=== PATIENT | male | born 1980 | race Caucasian/White ===

== ENCOUNTER 2024-01-09 09:17 | Outpatient (CLI) | payer OTHER, SELFPAY ==
--- NOTE | ~2024-01-09 | CT_ITS ---
CT sinus wo con Ordering provider: Haris Hoffman, DO History: . Chronic maxillary sinusitis . Comparison: None. Technique: Thin slice Scans CT of the paranasal sinuses was performed with coronal and sagittal refor matted images. No IV contrast. . Automated exposure control and iterative reconstruction technique w ere employed. The dose-length product was 257.89 mGy-cm. Findings: NASAL SEPTUM: Barium mild right nasal septal deviation. OSTEOMEATAL UNITS: Bilaterally patent. NASAL TURBINATES AND NASOPHARYNX: Normal. PARANASAL SINUSES: Well aerated. Minimal mucosal thickening in the right ethmoid sinus. VISUALIZED MASTOIDS: Normal as visualized. BONES: Bifid posterior arch of C1. SUPERFICIAL SOFT TISSUES/VISUALIZED BRAIN PARENCHYMA: Normal. IMPRESSION: Mild right nasal septal deviation. Minimal mucosal thickening of the right ethmoid sinus. Reviewed, dictated and finalized at location A.
== END 2024-01-09 09:18 ==
PROVIDERS: PCP Student in an Organized Health Care Education/Training Program; Visit Provider Student in an Organized Health Care Education/Training Program
DX: J32.0 Chronic maxillary sinusitis (principal); J34.2 Deviated nasal septum
CPT/HCPCS: 70486

== ENCOUNTER 2024-06-28 10:47 | Emergency (ER) | payer OTHER, SELFPAY ==
--- NOTE | ~2024-06-28 | CT_ITS ---
EXAMINATION: CT abdomen pelvis w con DATE: 06/28/2024 12:38 INDICATION: Epigastric pain, nausea and vomiting TECHNIQUE: Computed tomography (CT) of the abdomen and pelvis was performed with 100 mL Omnipaque-350 intravenous contrast. Automated exposure control and iterative reconstruction technique were employe d. The dose-length product was 1522.72 mGy-cm. COMPARISON: None FINDINGS: Subtle patchy groundglass opacities in the lingula and left lower lobe suspicious for pneumonia. Hear t size is normal. No pericardial or pleural effusion. Small sliding-type hiatal hernia. Diffuse hepat ic steatosis with focal sparing along the gallbladder fossa. Gallbladder, spleen, pancreas, bilateral adrenal glands and kidneys are normal. Bowels including the appendix are normal. Small fat-containin g umbilical hernia. Bladder is normal. No free intraperitoneal gas or fluid. No pathologically enlarg ed abdominal or pelvic lymphadenopathy. Moderate lumbar and lower thoracic spondylosis. Chronic mild T11 compression fracture. L5-S1 anterior spinal fusion with interbody fusion device and anterior plat e-screw fixation. IMPRESSION: 1. Patchy groundglass opacities in the left lower lobe and lingula consistent with pneumonia. 2. Small sliding-type hiatal hernia. 3. Diffuse hepatic steatosis. Reviewed, dictated and finalized at location A. MEDICAL DIRECTOR IMPRESSION: 1. Patchy groundglass opacities in the left lower lobe and lingula consistent w ith pneumonia. 2. Small sliding-type hiatal hernia. 3. Diffuse hepatic steatosis.
[2024-06-28 10:57] VITALS: BP 152/99; PULSE 99; RESP 18; TEMP 36.5; O2SAT 99
[2024-06-28 12:10] LABS: Basophils Absolute Auto 0.1 K/mm3 (0.0-0.1); Basophils Percent Auto 0.5 % (0.2-1.2); Eosinophils Absolute Auto 0.4 K/mm3 (0-0.3); Hematocrit 40.6 % (42.0-52.0); Hemoglobin 13.9 g/dL (14.0-18.0); Immature Granulocyte Absolute 0.03 K/mm3 (0.00-0.031); Immature Granulocyte Percent A 0.3 % (0-0.5); Mean Corpuscular HGB Conc 34.2 g/dl (32-36); Mean Corpuscular Hemoglobin 31.5 pg (26-34); Mean Corpuscular Volume 92.1 fl (80-100); Mean Platelet Volume 8.7 fl (7.4-10.4); Monocytes Absolute Auto 0.8 K/mm3 (0.1-0.6); Neutrophils Absolute Auto 6.1 K/mm3 (1.3-6.7); Neutrophils Percent Auto 63.2 % (45.5-73.1); Platelet Count Result 352 k/mm3 (150-375); Red Blood Count 4.41 M/mm3 (4.6-6.20); Red Cell Distribution Width 13.2 % (11.5-14.5); White Blood Count 9.6 K/mm3 (4.5-10.0)
[2024-06-28 12:12] LABS: Add Urine Microscopic? NO; Appearance Urine Clear (Clear); Bilirubin Urine Negative (Negative); Blood Urine Negative (Negative); Color Urine Yellow (Yellow); Glucose Urine UA Negative (Negative); Ketones Urine Negative (Negative); Leukocyte Esterase Ur Negative LEU/UL (Negative); Nitrate Urine Negative (Negative); Protein Urine Negative (Negative); Urobilinogen Urine 0.2 mg/dL (<2.0)
--- NOTE | 2024-06-28 12:18 | ED_ITS ---
HPI - Nausea/Vomiting/Diarrhea General Chief complaint: Nausea/Vomiting/Diarrhea Stated complaint: n/v Time Seen by Provider: 06/28/24 11:35 History of Present Illness HPI Narrative: 43-year-old male presenting with nausea and vomiting. States that for the last several months he has been having a lot of vomiting especially at night. It is been getting worse and he is concerned now that he is unable to keep his lithium down and he does not want to have a manic episode. His psychiatrist started him on Zofran which really has not been helping much. He has also been taking Protonix. He has an appointment with his PCP next month. Denies abdominal pain but does complain of some discomfort. Related Data Allergies Allergy/AdvReac Type Severity Reaction Status Date / Time steriod AdvReac Intermediate Agitated Uncoded 06/28/24 10:49 Review of Systems 2 Review of Systems: All systems reviewed & are unremarkable except as noted in HPI and below Exam 2 Narrative: GENERAL: Nontoxic, no acute distress, pleasant cooperative HEAD: Normocephalic, atraumatic. EYES: PERRLA and EOMI. ENT: Grossly unremarkable NECK: Supple. CHEST: No respiratory distress. HEART: Regular rate and rhythm ABDOMEN: Soft, nontender, nondistended EXTREMITIES: Normal range of motion SKIN: Warm, dry, no rash. NEURO: Alert and oriented x3. PSYCH: Normal mood and affect. Course Vital Signs Vital signs: Vital Signs Temperature 97.7 F 06/28/24 10:57 Pulse Rate 99 06/28/24 10:57 Respiratory Rate 18 06/28/24 10:57 Blood Pressure 152/99 H 06/28/24 10:57 Pulse Oximetry 99 06/28/24 10:57 Oxygen Delivery Room Air 06/28/24 10:57 Temperature 97.7 F 06/28/24 10:57 Pulse Rate 80 06/28/24 15:31 Respiratory Rate 16 06/28/24 15:31 Blood Pressure 143/80 H 06/28/24 15:31 Pulse Oximetry 100 06/28/24 15:31 Oxygen Delivery Room Air 06/28/24 10:57 MDM - Nausea/Vomiting/Diarrhea MDM Narrative Medical decision making narrative: 43-year-old male presenting with nausea and vomiting. Vitals are stable. Exam remarkable for the above. Blood work without acute abnormalities. CT abdomen pelvis with a small sliding hiatal hernia, left-sided pneumonia. Patient actually does report a cough for the last several days on further discussion. Blood work without acute abnormalities. UA is unremarkable. Patient given a dose of Reglan p.o. and is now tolerating p.o. intake. Feel he is safe for outpatient management. Will send in for antibiotics for the pneumonia and Reglan for his ongoing nausea. Discussed that he should not take Zofran and Reglan are simultaneously. Discussed appropriate return precautions and follow- up. Patient is agreeable this plan. Discharged in stable condition. Differential Diagnosis Differential diagnosis: Likely gastroenteritis, dehydration and other (Nausea and vomiting, pneumonia, UTI, electrolyte derangement) Medical Records Attestation: I reviewed the patient's medical records. Lab Data Attestation: I reviewed the patient's lab results. 06/28/24 12:00 06/28/24 12:00 Labs: Lab Results 06/28/24 06/28/24 Range/Units 12:00 12:01 WBC 9.6 (4.5-10.0) K/mm3 RBC 4.41 L (4.6-6.20) M/mm3 Hgb 13.9 L (14.0-18.0) g/dL Hct 40.6 L (42.0-52.0) % MCV 92.1 (80-100) fl MCH 31.5 (26-34) pg MCHC 34.2 (32-36) g/dl RDW 13.2 (11.5-14.5) % Plt Count 352 (150-375) k/mm3 MPV 8.7 (7.4-10.4) fl Immature Gran % (Auto) 0.3 (0-0.5) % Neut % (Auto) 63.2 (45.5-73.1) % Lymph % (Auto) 24.0 (18.3-44.2) % [place] % (Auto) 8.0 (2.6-8.5) % Eos % (Auto) 4.0 (0-4.4) % Baso % (Auto) 0.5 (0.2-1.2) % Lymph # (Auto) 2.30 (0.9-3.2) K/mm3 [place] # (Auto) 0.8 H (0.1-0.6) K/mm3 Eos # (Auto) 0.4 H (0-0.3) K/mm3 Baso # (Auto) 0.1 (0.0-0.1) K/mm3 Abs Immat Gran (auto) 0.03 (0.00-0.031) K/mm3 Absolute Neuts (auto) 6.1 (1.3-6.7) K/mm3 Absolute Nucleated RBC 0.000 (0.0-0.012) K/mm3 Nucleated RBC % 0.0 (0.0-0.2) % Sodium 139 (137-145) mmol/L Potassium 4.1 (3.4-5.0) mmol/L Chloride 108 H (98-107) mmol/L Carbon Dioxide 26 (22-30) mmol/L Anion Gap 5 (4-12) mmol/L BUN 8 L (9-20) mg/dL Creatinine 0.80 (0.7-1.3) mg/dL Estim Creat Clear Calc 144 ml/min Estimated GFR > 60 (59 - ) Glucose 92 (65-110) mg/dL Calcium 9.2 (8.4-10.2) mg/dL Total Bilirubin 0.6 (0.2-1.3) mg/dL AST 46 (17-59) U/L ALT 75 H (6-50) U/L Alkaline Phosphatase 89 (38-126) U/L Total Protein 7.0 (6.3-8.2) g/dL Albumin 4.2 (3.5-5.1) g/dL Lipase 136 (23-300) U/L Urine Color Yellow (Yellow) Urine Appearance Clear (Clear) Urine pH 7.0 (5.0-9.0) Ur Specific [place] 1.010 (1.001-1.035) Urine Protein Negative (Negative) mg/dL Urine Glucose (UA) Negative (Negative) mg/dL Urine Ketones Negative (Negative) mg/dL Ur Blood (Man) Negative (Negative) Urine Nitrate Negative (Negative) Urine Bilirubin Negative (Negative) Urine Urobilinogen 0.2 (<2.0) mg/dL Leukocyte Esterase Rfl Negative (Negative) HARRISON/UL Imaging Data Radiologist's impression: ITS Impressions Abdomen/Pelvis CT 06/28/24 12:42 IMPRESSION: 1. Patchy groundglass opacities in the left lower lobe and lingula consistent with pneumonia. 2. Small sliding-type hiatal hernia. 3. Diffuse hepatic steatosis. Critical Care Time Critical Care Time Critical Care Time: No Discharge Plan Discharge Clinical Impression: Nausea & vomiting, Pneumonia Patient Disposition: Home, Self-Care Condition: Stable Instructions: Antibiotic Form, Acute Nausea and Vomiting (ED), Pneumonia (ED) Additional Instructions: The CT scan today shows a small hiatal hernia. We also see pneumonia in your left lung so we have started you on antibiotics for this. We have sent in for Reglan to help with your nausea. You may continue taking your Protonix. Do not take the Zofran if your taking the Reglan. Please follow-up with the GI doctor at the number below. If your symptoms worsen or other concerning symptoms arise, please return to the ER. Patient Language: [place] Prescriptions: New metoclopramide HCl [Reglan] 10 mg tablet 10 mg PO Q6H PRN (Reason: nausea and vomiting) Qty: 20 0RF doxycycline hyclate 100 mg tablet 100 mg PO BID Qty: 10 0RF Follow-up/Referrals: Dr. Wadsworth [Other] Yasmin,DO Haris [Primary Care Provider] -
[2024-06-28 12:20] LABS: Alanine Aminotransferase 75 U/L (6-50); Albumin Level 4.2 g/dL (3.5-5.1); Alkaline Phosphatase 89 U/L (38-126); Anion Gap 5 mmol/L (4-12); Aspartate Amino Transferase 46 U/L (17-59); Bilirubin,Total 0.6 mg/dL (0.2-1.3); Blood Urea Nitrogen 8 mg/dL (9-20); Calcium 9.2 mg/dL (8.4-10.2); Carbon Dioxide 26 mmol/L (22-30); Chloride 108 mmol/L (98-107); Estimated CRCL calculation 144 ml/min; Estimated Glomerular Filt Rate > 60; Glucose 92 mg/dL (65-110); Lipase 136 U/L (23-300); Potassium 4.1 mmol/L (3.4-5.0); Sodium 139 mmol/L (137-145)
[2024-06-28] MEDS: SODIUM CHLORIDE 0.9% IV 1,000 ML 999 ML IV CONT (12:44)
[2024-06-28] MEDS: FAMOTIDINE 20 MG/2 ML VIAL IV PUSH (12:44)
[2024-06-28] MEDS: ONDANSETRON INJ 4 MG/2 ML VIAL IV PUSH (12:45)
[2024-06-28] MEDS: METOCLOPRAMIDE HCL 10 MG TABLET PO (15:25)
[2024-06-28 15:31] VITALS: BP 143/80; PULSE 80; RESP 16; O2SAT 100
--- NOTE | 2024-06-28 16:47 | PC.NURSE ---
Tolerated sandwich and fluids well.
--- OUTSIDE RECORDS SUMMARY | 2024-07-02 06:31 | XMS_ITS | Encounter Summary ---
Author Organization [facility] Address [address] [place] [address] Care Team Providers Care [employer]ley [employer] Over[employer]uler Name Role Phone Haris Hoffman DO Primary Care Provider + Reason for Visit * Reason Onset Date Comments Sinusitis 11/05/2019 Encounter Details Date Type Department Care Team (Late st Contact Info) Description 11/05/2019 Telephone [facility] [address], [address] [place] [address] Jose Lebron MD [facility] [place] [address] Sinusitis Social History Tobacco Use Types Packs/Day Years Used Date Smoking Tobacco: Never Smokeless Tobacco: Never Sex and Gender Information Value Date Recorded Sex Assigned at Not on file Gender Identity Not on file Sexual Orientation Not on file documented as of this encounter Miscellaneous Notes * Telephone Encounter - Cyndi Summers RN - 11/06/2019 9:52 AM CDT Message left for patient to call with symptoms, and to discuss * Telephone Encounter - Varsha Shelley - 11/05/2019 1:23 PM CDT Patient called with reports that he is still experiencing sinus infection symptoms. He would like to speak with a nurse to discuss treatment options. documented in this encounter Plan of Treatment Not on file documented as of this encounter Visit Diagnoses Not on filedocumented in this encounter Care Teams [employer]uler Relationship Specialty Start Date End Date Haris Hoffman DO PCP - General 05/23/19 documented as of this encounter
--- OUTSIDE RECORDS SUMMARY | 2024-07-02 06:31 | XMS_ITS | Encounter Summary ---
Author Organization [facility] Address [address] [place] [address] Care Team Providers Care Carriage Dogger Name Role Phone Haris Hoffman Primary Care Provider + Reason for Visit * Reason Comments Sinusitis 1 week Congestion draining down throat Cough Encounter Details Date Type Department Care Team (Late st Contact Info) Description 03/17/2021 4:40 PM CDT Office Visit [facility] AT [address] [phone] Provider, [facility] Edmund [place] Screening for viral disease (Primary Dx); COVID-19 Social History Tobacco Use Types Packs/Day Years Used Date Smoking Tobacco: Never Smokeless Tobacco: Never Sex and Gender Information Value Date Recorded Sex Assigned at Not on file Gender Identity Not on file Sexual Orientation Not on file COVID-19 Exposure Response Date Recorded In the last month, have you been in contact with someone who was confirmed or suspected to have Coronavirus / COVID-19? Yes 03/17/2021 4:26 PM CDT documented as of this encounter Last Filed Vital Signs Vital Sign Reading Time Taken Comments Blood Pressure 130/84 03/17/2021 4:32 PM CDT Pulse 98 03/17/2021 4:32 PM CDT Temperature 36.8 ??C (98.2 ??F) 03/17/2021 4:32 PM CD T Respiratory Rate 16 03/17/2021 4:32 PM CDT Oxygen Saturation 97% 03/17/2021 4:32 PM CDT Inhaled Oxygen Concentration - - Weight 113.4 kg (250 lb) 03/17/2021 4:32 PM CDT Height 188 cm (6' 2 ) 03/17/2021 4:32 PM CDT Body Mass Index 32.1 03/17/2021 4:32 PM CDT documented in this encounter Patient Instructions * Patient Instructions* Jesus Dominguez, STOVE INSTALLER-GOVERNMENT CLERK - 03/17/2021 4:53 PM CDT While waiting for your COVID-19 test result or if your COVID-19 test is positive: ISOLATE: Stay home except to get medical care! Separate yourself from other people and pets in [facility]: ??? Do not go to work, school, or public areas, such as stores or social gatherings. ??? Do not use public transportation. ??? If available, stay in a separate bedroom and use a separate bathroom. ??? Ask others to care for your pets. (If possible) ??? Wear a facemask when around other people or pets. ??? Cover your mouth and nose with a tissue when you cough or sneeze. If a tissue is not available,cough or sneeze into your upper sleeve (not your hands). ??? Throw tissues away in trash-can that has a bag in it. Empty your trash daily. ??? Always wash your hands after you throw away the tissue or garbage. QUARANTINE CAN BE COMPLETE ONCE THERE HAS BEEN 10 DAYS SINCE SYMPTOM ONSET, FEVER FREE X 24 HOURS AND HAVING SYMPTOM IMPROVEMENT. Self-care: ??? Rest as much as possible. Slowly start to do more each day. ??? Take the medicines recommended by your doctor for fever, body aches, cough, or headaches. (Tylenol or Ibuprofen for aches/pains/fever as needed) (Antihistamines like Claritin or Benadryl as needed for drainage) (Delsym and cough drops/throat lozenges as needed for cough) ??? Drink more liquids as directed to help thin and loosen mucus so it is easier to cough up. Liquids such as water, fruit juice, and broth also help keep you hydrated. ??? Soothe a sore throat by gargling with warm salt water. Make salt water by dissolving ?? teaspoon salt in 1 cup warm water (8 ounces). Older children and adults can also use throat lozenges, ice chips, or sore throat spray. ??? Use a humidifier or vaporizer to increase air moisture in your home. This may make it easier tobreathe and help decrease coughing. ??? Use saline nasal drops as directed to relieve congestion. ??? Apply petroleum-based jelly around the outside of nostrils to decrease irritation from blowing your nose. ??? DO NOT smoke or vape. Nicotine and other chemicals in cigarettes and cigars can make your symptoms worse. Monitor your symptoms: ??? Seek medical attention right away if your symptoms get worse, such as if you are having difficulty breathing, shortness of breath, new confusion or inability to arouse, or bluish lips or face. ??? If indicated a pulse ox will be soon delivered to your home - monitor your oxygen saturations with this device. If you find your Oxygen Saturation is falling 92% or below please notify your PCP right away or seek medical attention. ??? If you have a medical emergency, call 911 and notify the EMS personnel that you have or are being evaluated for COVID-19. Put on a facemask before emergency medical services arrive documented in this encounter Progress Notes * Jesus Dominguez APRN-CNP - 03/17/2021 4:54 PM CDT Subjective: David Rider is a 40 year old male who presents for evaluation: Chief Complaint Patient presents with ??? Sinusitis 1 week ??? Congestion draining down throat ??? Cough Primary Care Physician is Haris Hoffman DO. Symptoms include congestion and cough. Onset of symptoms was 1 week ago, gradually worsening since that time. congestion, non productive cough. He is drinking plenty of fluids. Evaluation to date: none. Treatment to date: none No Known Allergies Outpatient Medications Marked as Taking for the 03/17/21 encounter (Office Visit) with Provider, Earnestine Addison Medication Sig ??? ARIPiprazole (ABILIFY) 5 MG tablet Take 5 mg by mouth once daily ??? divalproex DR (DEPAKOTE) 500 MG tablet Take 500 mg by mouth 3 times daily ??? GABAPENTIN PO Past Medical History: Diagnosis Date ??? Anxiety and depression Patient Active Problem List: BMI 30.0-30.9,adult Gastroesophageal reflux disease with esophagitis Mild episode of recurrent major depressive disorder Recurrent sinus infections Past Surgical History: Procedure Laterality Date ??? LUMBAR SPINE FUSION L5-S1 Social History Socioeconomic History ??? Marital status: Spouse name: Not on file ??? Number of children: Not on file ??? Years of education: Not on file ??? Highest education level: Not on file Occupational History ??? Not on file Tobacco Use ??? Smoking status: Never Smoker ??? Smokeless tobacco: Never Used Vaping Use ??? Vaping Use: Never used Substance and Sexual Activity ??? Alcohol use: Not on file ??? Drug use: Not on file ??? Sexual activity: Not on file Other Topics Concern ??? Not on file Social History Narrative ??? Not on file Social Determinants of Health Financial Resource Strain: ??? Difficulty of Paying Living Expenses: Food Insecurity: ??? Worried About Running Out of Food in the Last Year: ??? Ran Out of Food in the Last Year: Transportation Needs: ??? Lack of Transportation (Medical): ??? Lack of Transportation (Non-Medical): Physical Activity: ??? Days of Exercise per Week: ??? Minutes of Exercise per Session: Stress: ??? Feeling of Stress : Social Connections: ??? Frequency of Communication with Friends and Family: ??? Frequency of Social Gatherings with Friends and Family: ??? Attends Sabianism Services: ??? Active Member of Clubs or Organizations: ??? Attends Club or Organization Meetings: ??? Marital Status: Intimate Partner Violence: ??? Fear of Current or Ex-Partner: ??? Emotionally Abused: ??? Physically Abused: ??? Sexually Abused: Medications reviewed. Review of Systems Constitutional: Positive for fatigue, fevers Ears, nose, mouth, and throat: Positive for earaches bilaterally, sinus trouble, congestion Respiratory: Positive for acute cough Cardiovascular: Negative Neurological: Negative Objective: BP 130/84 (BP SITE: LEFT ARM, BP POSITION: SITTING, BP CUFF SIZE: 11) Pulse 98 Temp 98.2 ??F (36.8 ??C) (Oral) Resp 16 Ht 1.88 m (6' 2 ) Wt 113.4 kg (250 lb) SpO2 97% BMI 32.1 kg/m2 Skin: Physical Exam Exam General appearance: alert, cooperative, no distress, ill-appearing Ears: neither Right tympanic membrane - bubbles present nor Left tympanic membrane - bubbles present Nose: nares open; no septal deviation is noted, no maxillary tenderness, clear rhinorrhea Throat: no mucous membrane abnormalities Neck: range of motion is intact, no masses, thyroid not enlarged, no adenopathy Lungs: breath sounds normal and symmetric; no rales or wheezes Heart: regular rhythm, normal S1 and S2, without murmurs, gallops or rubs Neurologic: mental status normal; alert and oriented X 3; cranial nerves II - XII are grossly intact Recent Results (from the past 24 hour(s)) SARS-COV-2 (COVID-19) AG (AMB) POCT Collection Time: 03/17/21 4:52 PM Result Value Ref Range SARS-CoV-2 Ag Positive (Abnormal) Negative Lot # [id number] Expiration Date 07/03/22 Instrument Serial Number [id number] COVID Internal Control Acceptable Acceptable Assessment: . Encounter Diagnoses Name Primary? Screening for viral disease Yes ??? COVID-19 Plan: While waiting for your COVID-19 test result or if your COVID-19 test is positive: ISOLATE: Stay home except to get medical care! Separate yourself from other people and pets in [facility]: ??? Do not go to work, school, or public areas, such as stores or social gatherings. ??? Do not use public transportation. ??? If available, stay in a separate bedroom and use a separate bathroom. ??? Ask others to care for your pets. (If possible) ??? Wear a facemask when around other people or pets. ??? Cover your mouth and nose with a tissue when you cough or sneeze. If a tissue is not available,cough or sneeze into your upper sleeve (not your hands). ??? Throw tissues away in trash-can that has a bag in it. Empty your trash daily. ??? Always wash your hands after you throw away the tissue or garbage. QUARANTINE CAN BE COMPLETE ONCE THERE HAS BEEN 10 DAYS SINCE SYMPTOM ONSET, FEVER FREE X 24 HOURS AND HAVING SYMPTOM IMPROVEMENT. Self-care: ??? Rest as much as possible. Slowly start to do more each day. ??? Take the medicines recommended by your doctor for fever, body aches, cough, or headaches. (Tylenol or Ibuprofen for aches/pains/fever as needed) (Antihistamines like Claritin or Benadryl as needed for drainage) (Delsym and cough drops/throat lozenges as needed for cough) ??? Drink more liquids as directed to help thin and loosen mucus so it is easier to cough up. Liquids such as water, fruit juice, and broth also help keep you hydrated. ??? Soothe a sore throat by gargling with warm salt water. Make salt water by dissolving ?? teaspoon salt in 1 cup warm water (8 ounces). Older children and adults can also use throat lozenges, ice chips, or sore throat spray. ??? Use a humidifier or vaporizer to increase air moisture in your home. This may make it easier tobreathe and help decrease coughing. ??? Use saline nasal drops as directed to relieve congestion. ??? Apply petroleum-based jelly around the outside of nostrils to decrease irritation from blowing your nose. ??? DO NOT smoke or vape. Nicotine and other chemicals in cigarettes and cigars can make your symptoms worse. Monitor your symptoms: ??? Seek medical attention right away if your symptoms get worse, such as if you are having difficulty breathing, shortness of breath, new confusion or inability to arouse, or bluish lips or face. ??? If indicated a pulse ox will be soon delivered to your home - monitor your oxygen saturations with this device. If you find your Oxygen Saturation is falling 92% or below please notify your PCP right away or seek medical attention. ??? If you have a medical emergency, call 911 and notify the EMS personnel that you have or are being evaluated for COVID-19. Put on a facemask before emergency medical services arrive Instructed to quarantine for 10 days from start of symptoms and until symptoms improved. Instructedto follow up with local health dept for official order to quarantine. Orders Placed This Encounter ??? SARS-COV-2 (COVID-19) AG (AMB) POCT Order Specific Question: Release to patient Answer: Immediate Order Specific Question: Is the patient experiencing any symptoms consistent with COVID (eg. Fever,cough, shortness of breath)? Answer: Yes Order Specific Question: Date of symptoms onset? Answer: 03/13/2021 Order Specific Question: Symptoms as described by CDC. (Select all that apply) Answer: Cough [[id number]] Order Specific Question: Symptoms as described by CDC. (Select all that apply) Answer: Nasal congestion [[id number]] Order Specific Question: Hospitalized for COVID-19? Answer: No Order Specific Question: Admitted to ICU for COVID-19? Answer: No Order Specific Question: First COVID-19 test? 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 Answer: No Order Specific Question: Resident in a congregate care setting? Answer: No Continue to follow up with Haris Hoffman DO as directed. After Visit Summary reviewed with patient. The patient indicates understanding of these issues and agrees with the plan. Patient discharged to Home .MARGO Restrepo 03/17/2021 5:07 PM documented in this encounter Plan of Treatment Not on file documented as of this encounter Procedures Procedure Name Priority Date/Time Associated Diagnosis Comments SARS-COV-2 (COVID-19) AG (AMB) POCT Routine 03/17/2021 4:52 PM CDT Screening for viral disease documented in this encounter Results * (ABNORMAL) SARS-COV-2 (COVID-19) AG (AMB) POCT (03/17/2021 4:52 PM CDT) SARS-CoV-2 Ag Positive(A) Negative [facility] Lot # [id number] [facility] Expiration Date 07/03/22 [facility] Instrument Serial Number [id number] [facility] COVID Internal Control Acceptable Acceptable [facility] Microbiology SPECIMEN FROM NASAL FOSSAE / Unknown 03/17/2021 4:52 PM CDT Narrative SSRENITA RADERWOOD - 03/17/2021 4:53 PM CDT SARS-CoV-2 antigen testing is authorized for use with nasal (Veritor, BinaxNOW, or Leah) or nasopharyngeal (Leah) swabs collected from individuals who are suspected of COVID-19 infection by their healthcare provider within the first five days of onset of symptoms. ??False-positive SARS-CoV-2 test results are more likely to occur when disease prevalence is low (less than 1%). False-negative SARS-CoV-2 test results are more likely to occur when disease prevalence is high (greater than 10%). ?? This test has been authorized by the Food and Drug administration (FDA)under an Emergency??Use Authorization (EUA). This test is only authorized for the duration of time the declaration that circumstances exist justifying the authorization of emergency use of in vitro diagnostic tests for detection of SARS-CoV-2 virus and/or diagnosis of COVID-19 infection under section 564(b)(1) of the Act, 21 U.S.C 360bbb-3 (b)(1), unless the authorization is terminated or revoked sooner. Fact Sheets for this EUA assay are available upon request. Jesus Dominguez APRN-GOVERNMENT CLERK LAB - POINT OF CARE ORDERABLES [facility] [address] [phone] documented in this encounter Visit Diagnoses Diagnosis Screening for viral disease- Primary Special screening examination for unspecified viral disease COVID-19 documented in this encounter Additional Health Concerns Infection Onset Date Last Indicated Resolved Time COVID-19 Under Investigation 03/17/2021 03/17/2021 03/17/2021 4:54 PM CDT COVID-19 Confirmed 03/17/2021 03/17/2021 09/12/202 1 4:33 AM CDT documented as of this encounter Care Teams Carriage Dogger Relationship Specialty Start Date End Date Haris Hoffman DO PCP - General 05/23/19 documented as of this encounter
--- OUTSIDE RECORDS SUMMARY | 2024-07-02 06:31 | XMS_ITS | Encounter Summary ---
Author Organization [facility] Address [address] [place] [address] Care Team Providers Care Blocker And Polisher Gold Wheel Name Role Phone Haris Hoffman DO Primary Care Provider + Encounter Details Date Type Department Care Team (Latest Contact Info) Description 03/17/2021 Travel Social History Tobacco Use Types Packs/Day Years [...] PM CDT documented as of this encounter Plan of Treatment Not on file documented as of this encounter Visit Diagnoses Not on filedocumented in this encounter Additional Health Concerns Infection Onset Date Last Indicated Resolved Time COVID-19 Under Investigation 03/17/2021 03/17/2021 03/17/2021 4:54 PM CDT COVID-19 Confirmed 03/17/2021 03/17/2021 4:33 AM CDT documented as of this encounter Care Teams Blocker And Polisher Gold Wheel Relationship Specialty Start Date End Date Haris Hoffman DO PCP - General 05/23/19 documented as of this encounter
--- OUTSIDE RECORDS SUMMARY | 2024-07-02 06:31 | XMS_ITS | Encounter Summary ---
Author Organization [facility] Address [facility] [facility] [place] [address] Care Team Providers Care Contracting Manager Name Role Phone Haris Hoffman DO Primary Care Provider + Encounter Details Date Type Department Care Team (Latest Contact Info) Description 04/12/2021 Travel Social History Tobacco Use Types Packs/Day Years Used Date Smoking Tobacco: Never Smokeless Tobacco: Never Alcohol Use Standard Drinks/Week Comments Not Currently 0 (1 standard drink = 0.6 oz pur e alcohol) Sex and Gender Information Value Date Recorded Sex Assigned at Not on file Gender Identity Not on file Sexual Orientation Not on file COVID-19 Exposure Response Date Recorded In the last month, have you been in contact with someone who was confirmed or suspected to have Coronavirus / COVID-19? No / Unsure 04/12/2021 12:37 PM CDT documented as of this encounter Plan of Treatment Not on file documented as of this encounter Visit Diagnoses Not on filedocumented in this encounter Care Teams Contracting Manager Relationship Specialty Start Date End Date Haris Hoffman DO PCP - General 05/23/19 documented as of this encounter
--- OUTSIDE RECORDS SUMMARY | 2024-07-02 06:31 | XMS_ITS | Encounter Summary ---
Author Organization [facility] Address [address] [address] Care Team Providers Care Screen Printing Cloth Spreader Name Role Phone Haris Hoffman Primary Care Provider + Reason for Visit * Reason Comments Dizziness Nausea States for days now has been having dizziness and nausea that comes and goes. Encounter Details Date Type Department Care Team (Late st Contact Info) Description 05/04/2022 9:17 AM CDT - 05/04/2022 11:51 AM CDT Emergency ER at [address] [address] Benign paroxysmal positional vertigo, unspecified laterality (Primary Dx); Dizzy Discharge Disposition: Home or Self Care Social History Tobacco Use Types Packs/Day Years Used Date Smoking Tobacco: Never Smokeless Tobacco: Never Alcohol Use Standard Drinks/Week Comments Not Currently 0 (1 standard drink = 0.6 oz pur e alcohol) Sex and Gender Information Value Date Recorded Sex Assigned at Not on file Gender Identity Not on file Sexual Orientation Not on file documented as of this encounter Last Filed Vital Signs Vital Sign Reading Time Taken Comments Blood Pressure 111/96 05/04/2022 11:30 AM CDT Pulse 108 05/04/2022 9:15 AM CDT Temperature 36.2 ??C (97.2 ??F) 05/04/2022 9:15 AM CD T Respiratory Rate 18 05/04/2022 9:15 AM CDT Oxygen Saturation 97% 05/04/2022 10:58 AM CDT Inhaled Oxygen Concentration - - Weight - - Height 188 cm (6' 2 ) 05/04/2022 9:15 AM CDT Body Mass Index - - documented in this encounter Discharge Instructions * Discharge Instructions* Disha Mojica PA-C - 05/04/2022 11:25 AM CDT You have been evaluated in the Emergency Department today for dizziness. Your evaluation suggests that your symptoms are most likely due to peripheral vertigo. You have been prescribed meclizine to help relieve your symptoms. Please take your prescription as directed. You can also try Noelle Maneuvers at home to help relieve your symptoms- instructions are available online. If meclizine is not covered by your insurance, it is available over the counter Please follow up with your primary care doctor in 2-3 days. Return to the ER immediately for worsening or uncontrolled symptoms, worsening headache, chest pain, shortness of breath, persistent vomiting, vision changes, fainting, or for any other concerning symptoms. documented in this encounter Medications at Time of Discharge Medication Sig Dispensed Refills Start Date End Date ARIPiprazole (ABILIFY) 5 MG tabletIndications:Bipol ar Mood Disorder Take 1 (one) tablet by mouth once daily Reasons: Manic-Depression 7 tablet 04/12/2021 buPROPion XL 24hr (WELLBUTRIN-XL) 300 MG tablet Take 300 mg by mouth every morning busPIRone (BUSPAR) 10 MG tablet Take 10 mg by mouth 2 times daily Cholecalciferol (VITAMIN D PO) divalproex DR (DEPAKOTE) 500 MG tablet Take 500 mg by mouth 2 times daily fluticasone propionate (FLONASE ALLERGY RELIEF) 50 MCG/ACT nasal sprayIndications:Allerg ic Rhinitis [place] 2 sprays into each nostril once daily Reasons: Allergic Rhinitis 1 bottles 03/07/2018 gabapentin (NEURONTIN) 300 MG capsuleIndications:Anxi ety Take 1 (one) capsule by mouth 2 times daily Reasons: Feeling Anxious 14 capsule 04/12/2021 meclizine (Antivert) 25 MG tablet Take 1 (one) tablet by mouth 3 times daily as needed for Dizziness 30 tablet 05/04/2022 ondansetron, disintegrating, (Zofran ODT) 4 MG tablet Take 1 (one) tablet by mouth every 6 hours as needed for Nausea/Vomiting Allow tablet to dissolve on the tongue 20 tablet 05/04/2022 documented as of this encounter ED Notes * Sabina Scales RN - 05/04/2022 10:02 AM CDT Pt ambulatory to restroom with a steady gait. * Suzy Irvin RN - 05/04/2022 9:23 AM CDT Pt presents to the ED c/o dizziness x several days that has increasing. He states it comes at random times. * Disha Mojica PA-C - 05/04/2022 9:20 AM CDT History of Present Illness Chief Complaint Patient presents with ??? Dizziness ??? Nausea States for days now has been having dizziness and nausea that comes and goes. 3:14 PM David Rider is a 41 year old male presenting to the ED c/o dizziness and lightheadedness onset several days intermittently. Pt reports he recently had an increase in his medication Vraylar.This decreases his appetite and he hasn't been eating or drinking as much lately. He states he has the dizziness with head movements and lightheadedness with standing up. He has been told he has had an inner ear infection in the past and this feels similar. He recently had rhinorrhea and congestion, but none currently. No hearing loss or tinnitus. He is nauseated. Pt denies fever, chills, other GI symptoms, CP, SOB. No other complaints at this time. Past Medical History: Diagnosis Date ??? Anxiety and depression Past Surgical History: Procedure Laterality Date ??? LUMBAR SPINE FUSION L5-S1 No family history on file. Social History Tobacco Use ??? Smoking status: Never Smoker ??? Smokeless tobacco: Never Used Vaping Use ??? Vaping Use: Never used Substance Use Topics ??? Alcohol use: Not Currently ??? Drug use: Not Currently Review of Systems All systems reviewed and are negative or non contributory for this patient's presentation today other than as stated in the HPI . Physical Exam Blood pressure 111/96, pulse 108, temperature 97.2 ??F (36.2 ??C), resp. rate 18, height 1.88 m (6'2 ), SpO2 97 %. Nursing notes and vital signs reviewed GENERAL: Non-toxic appearing, Well-appearing, NAD, appears stated age HEENT: NCAT, EOMI, sclera anicteric, conjunctiva are normal, nares patent, MMM NECK: Normal inspection, supple, full ROM LUNGS: Breath sounds are clear to auscultation bilaterally, no adventitious breath sounds, no distress CV: Mild tachycardia, Regular rhythm, no murmurs or gallops heard GI: Soft, nondistended, nontender, bowel sounds are present. No guarding or rebound. No peritoneal signs. MSK: MAEW, no obvious deformities. Steady gait. NEURO: Speech is clear. Alert and oriented x4. PERRL, right gaze horizontal nystagmus, normal peripheral vision, No facial asymmetry, 5/5 strength in all 4 extremities, no unilateral weakness, No pronator drift, Normal sensation to light touch of face and ext x 4, Finger to nose without difficulty,Normal heal to [place] without difficulty, no tremor, Gait observed, steady and regular PSYCH: Pleasant and cooperative SKIN: Exposed skin is without rash or lesion Procedures Labs Reviewed CBC W AUTO DIFFERENTIAL - Abnormal; Notable for the following components: Result Value RDW-CV 11.7 (*) MPV 8.5 (*) Neutrophils % 77.7 (*) Lymphocytes % 16.0 (*) All other components within normal limits COMPREHENSIVE METABOLIC PANEL - Abnormal; Notable for the following components: CO2 20 (*) All other components within normal limits MAGNESIUM BLOOD - Normal TROPONIN I - Normal BP 111/96 Pulse 108 Temp 97.2 ??F (36.2 ??C) Resp 18 Ht 1.88 m (6' 2 ) SpO2 97% Medical Decision Making Medical Decision Making: ED Course as of 05/04/22 1514 Evelyn May 04, 2022 0950 EKG shows Sinus tachycardia at 107 bpm, no acute ischemic changes. [AB] ED Course User Index [AB] Disha Mojica PA-C Clinical Impressions as of 05/04/22 1514 Dizzy Benign paroxysmal positional vertigo, unspecified laterality Pt's presentation today is most c/w BPPV. Differentials considered: labyrinthitis, (no hearing loss), vestibular neuritis, Meniere's, centralcauses of vertigo, syncope, seizure, CVA, symptomatic anemia, increased ICP, ICH, infection, complex migraine, MS, trauma, and many others. I do not suspect emergent causes of dizziness based on reassuring neuro exam, stable VS, and history. No red flag features for central vertigo to include gradual onset, vertical/bidirectional or non-fatigable nystagmus, focal neurologic findings on exam (including inability to ambulate, ataxia, dysm etria). 11:26 AM I rechecked pt. Pt is resting comfortably, in no distress, and VSS. He is feeling better after fluids, zofran, and meclizine. D/w pt lab results show NAD, EKG unremarkable and today's presentation is most c/w vertigo. Plan to d/c home with meclizine, zofran, f/u with PCP. Strict return to ER precautions given in d/c paperwork, specific to pt's diagnosis. Pt will f/u with PCP and understand the importance of doing such without fail. Pt verbalizes understanding and agrees to plan. All questions addressed. Patient stable for d/c home and feels comfortable with this plan of care. Final Diagnosis: 1. Benign paroxysmal positional vertigo, unspecified laterality 2. Dizzy documented in this encounter Plan of Treatment Not on file documented as of this encounter Procedures Procedure Name Priority Date/Time Associated Diagnosis Comments TROPONIN I STAT 05/04/2022 9:45 AM CDT CBC W AUTO DIFFERENTIAL STAT 05/04/2022 9:45 AM CDT COMPREHENSIVE METABOLIC PANEL STAT 05/04/2022 9:45 AM CDT MAGNESIUM BLOOD STAT 05/04/2022 9:45 AM CDT EKG 12-LEAD STAT 05/04/2022 9:36 AM CDT Dizzy documented in this encounter Results * TROPONIN I (05/04/2022 9:45 AM CDT) Pathologist [facility] Troponin I <0.010 <0.038 ng/mL 05/04/2022 10:16 AM CDT [facility] Blood BLOOD SPECIMEN / Unknown Venipuncture / Unknown 05/04/2022 9:45 AM CDT 05/04/2022 9:49 AM CDT Disha Mojica PA-C LAB - CHEMISTRY ORDERABLES Performing Organization Address [facility]/ZIP Co de Phone Number [facility] [address] [place] [address] * MAGNESIUM BLOOD (05/04/2022 9:45 AM CDT) [facility] Magnesium 2.0 1.6 - 2.6 mg/dL 05/04/2022 10:10 AM CDT [facility] Blood BLOOD SPECIMEN / Unknown Venipuncture / Unknown 05/04/2022 9:45 AM CDT 05/04/2022 9:49 AM CDT Disha Mojica PA-C LAB - CHEMISTRY ORDERABLES [facility] [address] [place] [address] * (ABNORMAL) COMPREHENSIVE METABOLIC PANEL (05/04/2022 9:45 AM CDT) [facility] Glucose 97 70 - 105 mg/dL 05/04/2022 10:10 AM CDT [facility] Sodium 138 136 - 145 mmol/L 05/04/2022 10:10 AM CDT [facility] Potassium 4.1 3.5 - 5.1 mmol/L 05/04/2022 10:10 AM [facility] Chloride 106 98 - 107 mmol/L 05/04/2022 10:10 AM [facility] CO2 20(L) 23 - 31 mmol/L 05/04/2022 10:10 AM [facility] Calcium 9.6 8.4 - 10.4 mg/dL 05/04/2022 10:10 AM [facility] Anion Gap 12 8 - 18 mmol/L 05/04/2022 10:10 AM [facility] BUN 9 8.9 - 20.6 mg/dL 05/04/2022 10:10 AM [facility] Creatinine 0.88 0.72 - 1.25 mg/dL 05/04/2022 10:10 AM [facility] Alkaline Phosphatase 88 40 - 150 U/L 05/04/2022 10:10 AM [facility] ALT 46 0 - 61 U/L 05/04/2022 10:10 AM [facility] AST 25 5 - 34 U/L 05/04/2022 10:10 AM [facility] Protein Total 7.5 6.4 - 8.3 gm/dL 05/04/2022 10:10 AM [facility] Albumin 4.4 3.5 - 5.2 gm/dL 05/04/2022 10:10 AM [facility] Bilirubin Total 0.7 0.2 - 1.2 mg/dL 05/04/2022 10:10 AM [facility] eGFR by CKD-EPI >90 >=90 mL/min/1.7 3 m2 05/04/2022 10:10 AM [facility] Blood BLOOD SPECIMEN / Unknown Venipuncture / Unknown 05/04/2022 9:45 AM CDT 05/04/2022 9:49 AM T Disha Mojica PA-C LAB - CHEMISTRY ORDERABLES [facility] [address] [facility] [address] [facility] [place] [address] * (ABNORMAL) CBC W AUTO DIFFERENTIAL (05/04/2022 9:45 AM CDT) WBC 8.2 4.4 - 10.7 x10E9/L 05/04/2022 9:56 AM CDT [facility] WBC Corrected 05/04/2022 9:56 AM CDT [facility] RBC 4.95 3.80 - 5.40 x10E12/L 05/04/2022 9:56 AM CDT [facility] Hemoglobin 15.9 12.0 - 17.6 gm/dL 05/04/2022 9:56 AM CDT [facility] Hematocrit 45.9 35.2 - 51.7 % 05/04/2022 9:56 AM CDT [facility] MCV 92.7 80.7 - 98.3 fl 05/04/2022 9:56 AM CDT [facility] MCH 32.1 26.7 - 34.0 pg 05/04/2022 9:56 AM CDT [facility] MCHC 34.6 30.8 - 35.9 gm/dL 05/04/2022 9:56 AM CDT [facility] Platelet Count 368 153 - 416 x10E9/L 05/04/2022 9:56 AM CDT [facility] RDW-CV 11.7(L) 12.1 - 14.9 % 05/04/2022 9:56 AM CDT [facility] MPV 8.5(L) 9.4 - 12.9 fl 05/04/2022 9:56 AM CDT [facility] Neutrophils % 77.7(H) 44.0 - 73.0 % 05/04/2022 9:56 AM CDT [facility] Lymphocytes % 16.0(L) 20.0 - 43.0 % 05/04/2022 9:56 AM CDT [facility] Monocytes % 5.9 5.0 - 13.0 % 05/04/2022 9:56 AM CDT [facility] Eosinophils % 0.1 0.0 - 6.0 % 05/04/2022 9:56 AM CDT [facility] Basophils % 0.2 0.0 - 2.0 % 05/04/2022 9:56 AM CDT [facility] Immature Granulocytes 0.1 0 - 1 % 05/04/2022 9:56 AM CDT [facility] Neutrophil Absolute 6.34 2.01 - 7.14 x10E9/L 05/04/2022 9:56 AM CDT [facility] Lymphocytes Absolute 1.31 1.07 - 3.94 x10E9/L 05/04/2022 9:56 AM CDT [facility] Monocytes Absolute 0.48 0.26 - 1.07 x10E9/L 05/04/2022 9:56 AM CDT [facility] Eosinophils Absolute 0.01 0 - 0.47 x10E9/L 05/04/2022 9:56 AM CDT [facility] Basophils Absolute 0.02 0 - 0.08 x10E9/L 05/04/2022 9:56 AM CDT [facility] Immature Granulocytes Absolute 0.01 0.00 - 0.06 x10E9/L 05/04/2022 9:56 AM CDT [facility] nRBC Auto 0 /100 WBC 05/04/2022 9:56 AM CDT [facility] Blood BLOOD SPECIMEN / Unknown Venipuncture / Unknown 05/04/2022 9:45 AM CDT 05/04/2022 9:48 AM CDT Disha Mojica PA-C LAB - HEMATOLOGY ORDERABLES [facility] [address] [place] [address] * EKG 12-LEAD (05/04/2022 9:36 AM CDT) Ventricular Rate 107 BPM [facility] Atrial Rate 107 BPM [facility] P-R Interval 120 ms [facility] QRS Duration ms 106 ms [facility] Q-T Interval ms 348 ms [facility] QTC Calculation (Bezet) 464 ms [facility] Calculated P [place] 73 degrees [facility] Calculated R [place] 33 degrees [facility] Calculated T [place] 40 degrees [facility] Interpretation EKG Sinus tachycardia Otherwise normal ECG No previous ECGs available Confirmed by FAIZA JOEL MD ([id number]) on 05/07/2022 10:25:19 PM [facility] 05/04/2022 9:36 AM CDT 05/07/2022 10:25 PM CDT Disha Mojica PA-C ECG ORDERABLES [facility] documented in this encounter Visit Diagnoses Diagnosis Benign paroxysmal positional vertigo, unspecified laterality- Primary Dizzy Dizziness and giddiness documented in this encounter Administered Medications Inactive Administered Medications - up to 3 most recent administrations Medication Order MAR Action Action Date Dose Rate Site 0.9% NaCl IV bolus 1,000 mL, at 1,935.48 mL/hr, Administer over 31 Minutes, NOW, 1 dose, On Evelyn 05/04/22 at 0930 $ New Bag/Syringe 05/04/2022 9:49 AM CDT 1,000 mL 1935.48 mL/hr meclizine (Antivert) tablet 25 mg 25 mg, Oral, NOW, 1 dose, On Evelyn 05/04/22 at 1100 $ Given 05/04/2022 11:04 AM CDT 25 mg ondansetron (Zofran) injection 4 mg 4 mg, Intravenous, NOW, 1 dose, On Evelyn 05/04/22 at 0930, Administer over 2 to 5 minutes. $ Given 05/04/2022 9:50 AM CDT 4 mg documented in this encounter Active and Recently Administered Medications Times are shown in CDT. Scheduled Medication Order 05/02/2022 05/03/2022 05/04/2022 0.9% NaCl IV bolus (COMPLETED) 1,000 mL, at 1,935.48 mL/hr, Administer over 31 Minutes, NOW, 1 dose, On Evelyn 05/04/22 at 0930 0949 ($ New Bag/Syri nge - Provider: Suzy Irvin, RADHA)1020 (Stopped - Provider: Suzy Irvin RN) meclizine (Antivert) tablet 25 mg (COMPLETED) 25 mg, Oral, NOW, 1 dose, On Evelyn 05/04/22 at 1100 1104 ($ Given - Prov ider: Fredi Guerrero RN) ondansetron (Zofran) injection 4 mg (COMPLETED) 4 mg, Intravenous, NOW, 1 dose, On Evelyn 05/04/22 at 0930, Administer over 2 to 5 minutes. 0950 ($ Given - Prov ider: Suzy Irvin RN) documented in this encounter Care Teams Screen Printing Cloth Spreader Relationship Specialty Start Date End Date Haris Hoffman DO PCP - General 05/23/19 documented as of this encounter
--- OUTSIDE RECORDS SUMMARY | 2024-07-02 06:31 | XMS_ITS | Clinical Summary ---
Author Organization [facility] [employer] Address [address] [place] [address] Care Team Providers Care Set Up Mold Technician Name Role Phone Haris Hoffman Vicente HIDALGO Primary Care Provider + Source Comments [facility],non-owned Affiliates and Associated Physician Practices is amultiple site organization consisting of ambulatory clinics and hospital sitesin [place], [place], [place] and [place]. This disclosure is being madepursuant to the Care Everywhere program and may not contain all information available regarding this patient. Last updated 18.[facility] [employer] Allergies No known active allergies Medications * Be aware that medications may not be up to date on this document. Alwaysverify current medications with the patient. Medication Sig Dispensed Refills Start Date End Date Status Cholecalciferol (VITAMIN D PO) Active fluticasone propionate (FLONASE ALLERGY RELIEF) 50 MCG/ACT nasal sprayIndications:Al lergic Rhinitis [place] 2 sprays into each nostril once daily Reasons: Allergic Rhinitis 1 bottles 03/07/[address] (DEPAKOTE) 500 MG tablet Take 500 mg by mouth 2 times daily Active buPROPion XL 24hr (WELLBUTRIN-XL) 300 MG tablet Take 300 mg by mouth every morning Active busPIRone (BUSPAR) 10 MG tablet Take 10 mg by mouth 2 times daily Active ARIPiprazole (ABILIFY) 5 MG tabletIndications:B ipolar Mood Disorder Take 1 (one) tablet by mouth once daily Reasons: Manic-Depression 7 tablet 04/12/2021 Active gabapentin (NEURONTIN) 300 MG capsuleIndications: Anxiety Take 1 (one) capsule by mouth 2 times daily Reasons: Feeling Anxious 14 capsule 04/12/2021 Active meclizine (Antivert) 25 MG tablet Take 1 (one) tablet by mouth 3 times daily as needed for Dizziness 30 tablet 05/04/2022 Active ondansetron, disintegrating, (Zofran ODT) 4 MG tablet Take 1 (one) tablet by mouth every 6 hours as needed for Nausea/Vomiting Allow tablet to dissolve on the tongue 20 tablet 05/04/2022 Active Active Problems Problem Noted Date Diagnosed Date BMI 30.0-30.9,adult 05/09/2019 Gastroesophageal reflux disease with esophagitis 05/09/2019 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 05/09/2019 Recurrent sinus infections 05/09/2019 Social History Tobacco Use Types Packs/Day Years Used Date Smoking Tobacco: Never Smokeless Tobacco: Never Alcohol Use Standard Drinks/Week Comments Not Currently 0 (1 standard drink = 0.6 oz pur e alcohol) Sex and Gender Information Value Date Recorded Sex Assigned at Not on file Gender Identity Not on file Sexual Orientation Not on file Last Filed Vital Signs Vital Sign Reading Time Taken Comments Blood Pressure 111/96 05/04/2022 11:30 AM CDT Pulse 108 05/04/2022 9:15 AM CDT Temperature 36.2 ??C (97.2 ??F) 05/04/2022 9:15 AM CD T Respiratory Rate 18 05/04/2022 9:15 AM CDT Oxygen Saturation 97% 05/04/2022 10: 58 AM CDT Inhaled Oxygen Concentration - - Weight 112.6 kg (248 lb 3.2 oz) 021 12:48 PM CDT Height 188 cm (6' 2 ) 05/04/2022 9:15 AM CDT Body Mass Index 31.87 04/12/2021 12:48 PM CDT Plan of Treatment Health Maintenance Due Date Last Done Comments COLOGUARD (AGES 45-75) - COL ON CA SCREENING 1978 COLON MONITORING 1978 COLONOSCOPY - COLON CA SCREENING 1978 CT COLONOGRAPHY - COLON CA SCREENING 1978 Colorectal Cancer Screening 1978 FIT - COLON CA SCREENING 1978 FLEX SIG - COLON CA SCREENING 1978 LIPID TESTING 1978 HIV SCREENING 1993 HEPATITIS C SCREENING 09/08/1996 DTAP/TDAP/TD VACCINES (1 - Tdap) 1997 HEPATITIS B VACCINE (1 of 3 - 19+ 3-dose series) 1997 DEPRESSION SCREENING 07/16/2023 COVID-19 VACCINE (3 - 2023-2 5 season) 2024 10/31/2020, 10/10/2020 INFLUENZA VACCINE (#1) 2024 SCREENING FOR DIABETES 05/04/2025 05/04/2022 ZOSTER VACCINE (1 of 2) 2028 HIB VACCINE Aged Out No longer eligi ble based on patient's age to complete this topic HPV VACCINE Aged Out No longer eligi ble based on patient's age to complete this topic MENINGOCOCCAL VACCINE Aged Out No yvette maciel eligible based on patient's age to complete this topic PNEUMOCOCCAL VACCINE Aged Out No long er eligible based on patient's age to complete this topic Procedures Procedure Name Priority Date/Time Associated Diagnosis Comments COMPREHENSIVE METABOLIC PANEL STAT 05/04/2022 9:45 AM CDT from Last 3 Months or Most Recently Relevant to Health Maintenance Results * (ABNORMAL) COMPREHENSIVE METABOLIC PANEL (05/04/2022 9:45 AM CDT) Glucose 97 70 - 105 mg/dL 05/04/2022 10:10 AM CDT [facility] Sodium 138 136 - 145 mmol/L 05/04/2022 10:10 AM CDT [facility] Potassium 4.1 3.5 - 5.1 mmol/L 05/04/2022 10:10 AM CDT [facility] Chloride 106 98 - 107 mmol/L 05/04/2022 10:10 AM CDT [facility] CO2 20(L) 23 - 31 mmol/L 05/04/2022 10:10 AM CDT [facility] Calcium 9.6 8.4 - 10.4 mg/dL 05/04/2022 10:10 AM CDT [facility] Anion Gap 12 8 - 18 mmol/L 05/04/2022 10:10 AM CDT [facility] BUN 9 8.9 - 20.6 mg/dL 05/04/2022 10:10 AM CDT [facility] Creatinine 0.88 0.72 - 1.25 mg/dL 05/04/2022 10:10 AM CDT [facility] Alkaline Phosphatase 88 40 - 150 U/L 05/04/2022 10:10 AM CDT [facility] ALT 46 0 - 61 U/L 05/04/2022 10:10 AM CDT [facility] AST 25 5 - 34 U/L 05/04/2022 10:10 AM CDT [facility] Protein Total 7.5 6.4 - 8.3 gm/dL 05/04/2022 10:10 AM T [facility] Albumin 4.4 3.5 - 5.2 gm/dL 05/04/2022 10:10 AM T [facility] Bilirubin Total 0.7 0.2 - 1.2 mg/dL 05/04/2022 10:10 AM T [facility] eGFR by CKD-EPI >90 >=90 mL/min/1.7 3 m2 05/04/2022 10:10 AM T [facility] Blood BLOOD SPECIMEN / Unknown Venipuncture / Unknown 05/04/2022 9:45 AM CDT 05/04/2022 9:49 AM CDT Disha Mojica PA-C LAB - CHEMISTRY ORDERABLES [facility] [address] [place] [address] from Last 3 Months or Most Recently Relevant to Health Maintenance Care Teams Set Up Mold Technician Relationship Specialty Start Date End Date Haris Hoffman DO PCP - General 05/23/19
--- OUTSIDE RECORDS SUMMARY | 2024-07-02 06:31 | XMS_ITS | Continuity of Care Document ---
Author Organization [place] - [employer] , [employer] [facility] Address [address] [place] [address] Assessment Encounter Date Assessment Date Assessment LastModified by Organization Details LastModified Time 05/26/2024 05/26/2024 Ddx: GERD, Dyspepsia, Gastritis, Laryngeal Reflux A: Gastroesophageal reflux disease is determined to be the etiology of current symptoms. Patient without symptoms suggestive of bacterial etiology at this time. P: Provided counseling/treatme nt recommendations as noted below: ? Monitor for worsening of abdominal pain, burping, gas, nausea, vomiting ? Medications prescribed: Increase prilosec to 20 mg twice daily. Add protonix 40 mg as directed. Follow up with PCP in 2-3 weeks or sooner as discussed ? Drug interactions: ? OTC meds recommended: ? Anti-reflux measures discussed / prevention: ? LIfestyle changes: Counseled on the importance of follow up if symptoms not improving with recommended treatment plan. Patient to be seen for repeat evaluation if symptoms worsen, counseled on red flag symptoms to indicate need for emergent follow up. Patient expressed understanding and agreement with the treatment plan as outlined. Not available 05/26/2024 18:51:13 Plan of Treatment Reminders Order Date Submit Date Provider Last Modified By Organization Details Last Modified Time Details Appointments None recorded. Lab None recorded. Referral None recorded. Procedures None recorded. Surgeries None recorded. Imaging None recorded. Medication Orders Protonix 40 mg tablet,del ayed release 2023 024 [facility]/Pharmacy #[id number], [address], [place], [address], 18:51:55 Patient TargetsNo targets recorded. Patient Instructions Encounter Date Encounter Id Patient Instructions Last Modified By Organization Details Last Modified Time 05/26/2024 [id number] gastroesophageal reflux disease (GERD): care instructions Not available 05/26/2024 18:51:53 Summary of Today 's Visit: During our discussion today, we talked about your ongoing symptoms of nausea and vomiting, which you associate with acid reflux. You've been experiencing these issues for about a month, along with occasional hoarseness and a dry cough that seem to be related to your reflux. You have been using Prilosec once daily to help manage these symptoms. Acid Reflux Management: Our plan moving forward is to add a new medication, Protonix (Pantoprazole), as part of your treatment. Protonix is a type of medication called a proton pump inhibitor (PPI), which helps reduce overall acid production and allows time for healing. You should take Protonix at a dose of 40 mg daily, ideally on an empty stomach, which means waiting two hours after or before eating. Choose a time of day that fits your routine best, whether in the morning or at bedtime. Follow-Up Actions: Make sure to schedule an appointment with your primary care doctor within the next month to review the changes in your treatment plan. They should monitor your symptoms and determine if any further adjustments are necessary, such as increasing the Prilosec dosage or extending the PPI therapy. If your symptoms do not improve after the initial period, please reach out to us. Follow-up with your primary care provider will ensure the best long-term management of your acid reflux. Remember: Avoid simply waiting out these symptoms without relief, as long-term acid exposure can lead to more serious health issues. We have several options available to help manage and alleviate your discomfort. Stay on top of your medication and follow up accordingly. Not available 05/26/2024 18:54:55 Reason for Referral None Reported. Medical Equipment None Reported. Allergies No known drug allergies Medications Name Sig Start Date Stop Date Status Note LastModified by Organization Details LastModified Time quetiapine 25 mg tablet active Not Available Not Available Not Available venlafaxine ER 75 mg capsule,ext ended release 24 hr TAKE 1 CAPSULE BY MOUTH EVERY DAY WITH FOOD FOR 30 DAYS active Not Available Not Available No t Available Protonix 40 mg tablet,isaac yed release Take 1 tablet every day by oral route before meal(s). 2023 active Not Available Not Available Not Avai lable doxycycline hyclate 100 mg capsule TAKE 1 CAPSULE BY MOUTH TWICE A DAY FOR 7 DAYS 05/26 completed Not Available Not Available Not Available ondansetron HCl 4 mg tablet TAKE 1 TABLET BY MOUTH DAILY NEEDED FOR NAUSEA FOR 30 DAYS active Not Available Not Available No t Available prednisone 20 mg tablet TAKE 2 TABLETS BY MOUTH EVERY DAY FOR 5 DAYS 05/26 completed Not Available Not Available Not Available propranolol ER 60 mg capsule,24 hr,extended release TAKE 1 CAPSULE BY MOUTH EVERYDAY AT BEDTIME active Not Available Not Available No t Available venlafaxine ER 150 mg capsule,ext ended release 24 hr TAKE 1 CAPSULE BY MOUTH EVERY DAY WITH FOOD FOR 30 DAYS active Not Available Not Available No t Available lithium carbonate ER 450 mg tablet,exte nded release TAKE 3 TABLETS BY MOUTH ONCE DAILY AT BEDTIME active Not Available Not Available No t Available benzonatate 100 mg capsule TAKE 1 CAPSULE BY MOUTH THREE TIMES A DAY FOR 10 DAYS 05/26 completed Not Available Not Available Not Available methylpredn isolone 4 mg tablets in a dose pack TAKE 1 (ORAL) PER PACKAGE DIRECTION S 05/26 completed Not Available Not Available Not Available albuterol sulfate HFA 90 mcg/actuati on aerosol inhaler INHALE 1 TO 2 PUFFS BY MOUTH EVERY 4 HOURS NEEDED FOR WHEEZING FOR 10 DAYS 05/26 completed Not Available Not Available Not Available dextroamphe tamine-amph etamine ER 30 mg 24hr capsule,ext end release 1 CAPSULE IN THE MORNING ORALLY ONCE A DAY. FILL 01/12 PER MD active Not Available Not Available No t Available cefdinir 300 mg capsule TAKE 1 CAPSULE BY MOUTH EVERY 12 HOURS FOR 10 DAYS 05/26 completed Not Available Not Available Not Available amoxicillin 875 mg-potassiu m clavulanate 125 mg tablet TAKE 1 TABLET BY MOUTH TWICE A DAY FOR 10 DAYS 05/26 completed Not Available Not Available Not Available bupropion HCl XL 300 mg 24 hr tablet, extended release TAKE 1 TABLET BY MOUTH EVERY DAY IN THE MORNING FOR 30 DAYS active Not Available Not Available No t Available bupropion HCl XL 150 mg 24 hr tablet, extended release TAKE 1 TABLET BY MOUTH EVERY DAY IN THE MORNING FOR 30 DAYS active Not Available Not Available No t Available eszopiclone 1 mg tablet TAKE 1 TABLET IMMEDIATE LY BEFORE BEDTIME ONCE A DAY FOR 30 DAYS active Not Available Not Available No t Available dexmethylph enidate ER 15 mg capsule,ext ended release [id number] 50 TAKE 1 CAPSULE BY MOUTH EVERY DAY IN THE MORNING FOR 30 DAYS active Not Available Not Available No t Available quetiapine 50 mg tablet TAKE 1/2 - 1 TABLET BY MOUTH ONCE DAILY AT BEDTIME 30 DAYS active Not Available Not Available No t Available lurasidone 40 mg tablet TAKE 1 TABLET BY MOUTH EVERY DAY IN THE EVENING WITH FOOD 05/26 completed Not Available Not Available Not Available lurasidone 20 mg tablet TAKE 1 TABLET BY MOUTH EVERY DAY IN THE EVENING WITH FOOD 05/26 completed Not Available Not Available Not Available Vraylar 1.5 mg capsule TAKE 1 CAPSULE BY MOUTH EVERY DAY FOR 30 DAYS active Not Available Not Available No t Available Vraylar 4.5 mg capsule TAKE 1 CAPSULE BY MOUTH EVERY DAY active Not Available Not Available No t Available Vitals None Recorded Social History None recorded. Functional Status None recorded. Mental Status None recorded. Family History Nothing Reported. Medical History No medical history recorded. Past Encounters Encounter ID Performer Location Encounter Start Date Encounter Closed Date Diagnosis/Indication Diagnosis SNOMED-CT Code Diagnosis ICD10 Code [id number] SHILOH May [facility] [address] [place] [address] 05/26/2024 18:25:00 05/27/2024 00:42:22 Gastroesophageal reflux disease 553368138 K21.9 Health Concerns Section Related Observation LastModified by Organization Detai ls LastModified Time None Recorded Concern Status LastModified by Organization Details LastModified Time None Recorded Payers Encounter Date Sequence Insurance Name Policy Number Policy Zambrano Covered Member ID Zambrano Member ID Guarantor Name 05/26/2024 1 [facility] [id number] David Rider [id number] David Rider 05/26/2024 3 *SELF PAY* [id number] David Rider [id number] David Rider Notes Date Note Type Note Provider Name and Address Organization Details Recorded Time 05/26/2024 text/html Call connected, patient greeted. Patient name, , telephone number and location verified verbally with the patient. Telemedicine limitations reviewed, answered all questions the patient had about the telehealth interaction, and verbal consent obtained to treat. Clinician attests to being physically located in the following state at the time of visit: [place]. The patient consents to the use of [employer] technology. Previous visits and labs reviewed, if available.Patient at time of visit located in: [place] HPI: pt reports he has been having acid reflux for the past several months; states the acid reflux causes him nausea and at times vomiting. States he takes prilosec daily with no relief. Reports hoarse voice, frequent dry cough. Onset and duration of symptoms: several months Symptoms:? Heartburn:+? Gas:-? Bloating:-? Burping:+? Abdominal pain:-? Coughing:+? Wheezing:-? Shortness of breath:-? Postnasal drip:-? Nausea, vomiting or diarrhea:+? Past history of peptic ulcer disease or reflux: denies? Halitosis:-? URI symptoms:-? Past history of asthma:-? Past history of H.pylori-? Past family history of Singh? s esophagus-? Recent History of NSAIDs use:-? Recent use of new medications:-? Hoarseness:+? Dental concerns:-? Additional symptoms:- SHILOH May [address] [place] [address] [address], [place], [address], [facility] 05/26/2024 18:55:05
--- OUTSIDE RECORDS SUMMARY | 2024-07-02 06:31 | XMS_ITS | Patient Health Summary ---
Author Organization [facility] Address [address] [facility] [place] [address] Care Team Providers Care Earring Maker Name Role Phone Haris Hoffman Vicente HIDALGO Primary Care Provider + Note from [facility],non-owned Affiliates and Associated Physician Practices is amultiple site organization consisting of ambulatory clinics and hospital sitesin [place], [place], [place] and [place]. This disclosure is being madepursuant to the Care Everywhere program and may not contain all information available regarding this patient. Last updated 18.[facility] Allergies No known active allergies Medications * Be aware that medications may not be up to date on this document. Alwaysverify current medications with the patient. * Cholecalciferol (VITAMIN D PO) * fluticasone propionate (FLONASE ALLERGY RELIEF) 50 MCG/ACT nasal spray(Started 03/07/2018) [place] 2 sprays into each nostril once daily Reasons: Allergic Rhinitis * divalproex DR (DEPAKOTE) 500 MG tablet Take 500 mg by mouth 2 times daily * buPROPion XL 24hr (WELLBUTRIN-XL) 300 MG tablet Take 300 mg by mouth every morning * busPIRone (BUSPAR) 10 MG tablet Take 10 mg by mouth 2 times daily * ARIPiprazole (ABILIFY) 5 MG tablet(Started 04/12/2021) Take 1 (one) tablet by mouth once daily Reasons: Manic-Depression * gabapentin (NEURONTIN) 300 MG capsule(Started 04/12/2021) Take 1 (one) capsule by mouth 2 times daily Reasons: Feeling Anxious * meclizine (Antivert) 25 MG tablet(Started 05/04/2022) Take 1 (one) tablet by mouth 3 times daily as needed for Dizziness * ondansetron, disintegrating, (Zofran ODT) 4 MG tablet(Started 05/04/2022) Take 1 (one) tablet by mouth every 6 hours as needed for Nausea/Vomiting Allow tablet to dissolve on the tongue Active Problems Problem Noted Date Diagnosed Date [...] Mass Index 31.87 04/12/2021 12:48 PM CDT Procedures * TROPONIN I(Performed 05/04/2022) * MAGNESIUM BLOOD(Performed 05/04/2022) * COMPREHENSIVE METABOLIC PANEL(Performed 05/04/2022) * CBC W AUTO DIFFERENTIAL(Performed 05/04/2022) * EKG 12-LEAD(Performed 05/04/2022) Performed for Dizzy * SARS-COV-2 (COVID-19) AG (AMB) POCT(Performed 03/17/2021) Performed for Screening for viral disease * [place] NASAL ENDOSCOPY,DX(Performed 09/15/2019) Performed for Chronic sinusitis, unspecified location Results * TROPONIN I (05/04/2022 9:45 AM CDT) Pathologist [facility] Troponin I <0.010 <0.038 ng/mL 05/04/2022 10:16 AM CDT [facility] Blood BLOOD SPECIMEN / Unknown Venipuncture / Unknown 05/04/2022 9:45 AM CDT 05/04/2022 9:49 AM CDT Disha Mojica PA-C LAB - CHEMISTRY ORDERABLES Performing Organization Address City/State/[facility] Co de Phone Number [facility] [address] [place] [address] * (ABNORMAL) CBC W AUTO DIFFERENTIAL (05/04/2022 9:45 AM CDT) Pathologist [facility] WBC 8.2 4.4 - 10.7 x10E9/L 05/04/2022 9:56 AM CDT [facility] WBC Corrected 05/04/2022 9:56 AM CDT [facility] RBC 4.95 3.80 - 5.40 x10E12/L 05/04/2022 9:56 AM CDT [facility] Hemoglobin 15.9 12.0 - 17.6 gm/dL 05/04/2022 9:56 AM CDT [facility] Hematocrit 45.9 35.2 - 51.7 % 05/04/2022 9:56 AM CDT [facility] MCV 92.7 80.7 - 98.3 fl 05/04/2022 9:56 AM CDT [facility] MCH 32.1 26.7 - 34.0 pg 05/04/2022 9:56 AM CDT [facility] MCHC 34.6 30.8 - 35.9 gm/dL 05/04/2022 9:56 AM CDT [facility] Platelet Count 368 153 - 416 x10E9/L 05/04/2022 9:[address] [facility] RDW-CV 11.7(L) 12.1 - 14.9 % 05/04/2022 9:56 AM [facility] MPV 8.5(L) 9.4 - 12.9 fl 05/04/2022 9:[address] [facility] Neutrophils % 77.7(H) 44.0 - 73.0 % 05/04/2022 9:[address] [facility] Lymphocytes % 16.0(L) 20.0 - 43.0 % 05/04/2022 9:[address] [facility] Monocytes % 5.9 5.0 - 13.0 % 05/04/2022 9:[address] [facility] Eosinophils % 0.1 0.0 - 6.0 % 05/04/2022 9:[address] [facility] Basophils % 0.2 0.0 - 2.0 % 05/04/2022 9:[address] [facility] Immature Granulocytes 0.1 0 - 1 % 05/04/2022 9:[address] [facility] Neutrophil Absolute 6.34 2.01 - 7.14 x10E9/L 05/04/2022 9:[address] [facility] Lymphocytes Absolute 1.31 1.07 - 3.94 x10E9/L 05/04/2022 9:[address] [facility] Monocytes Absolute 0.48 0.26 - 1.07 x10E9/L 05/04/2022 9:[address] [facility] Eosinophils Absolute 0.01 0 - 0.47 x10E9/L 05/04/2022 9:[address] [facility] Basophils Absolute 0.02 0 - 0.08 x10E9/L 05/04/2022 9:[address] [facility] Immature Granulocytes Absolute 0.01 0.00 - 0.06 x10E9/L 05/04/2022 9:[address] [facility] nRBC Auto 0 /100 WBC 05/04/2022 9:[address] [facility] Blood BLOOD SPECIMEN / Unknown Venipuncture / Unknown 05/04/2022 9:45 AM CDT 05/04/2022 9:48 AM CDT Disha Mojica PA-C LAB - HEMATOLOGY ORDERABLES [facility] [address] [place] [address] * (ABNORMAL) COMPREHENSIVE METABOLIC PANEL (05/04/2022 9:45 AM CDT) Glucose 97 70 - 105 mg/dL 05/04/2022 10:10 AM CDT [facility] Sodium 138 136 - 145 mmol/L 05/04/2022 10:10 AM CDT [facility] Potassium 4.1 3.5 - 5.1 mmol/L 05/04/2022 10:10 AM CDT [facility] Chloride 106 98 - 107 mmol/L 05/04/2022 10:10 AM [facility] CO2 20(L) 23 - 31 mmol/L 05/04/2022 10:10 AM [facility] Calcium 9.6 8.4 - 10.4 mg/dL 05/04/2022 10:[address] [facility] Anion Gap 12 8 - 18 mmol/L 05/04/2022 10:10 AM CDT [facility] BUN 9 8.9 - 20.6 mg/dL 05/04/2022 10:10 AM CDT [facility] Creatinine 0.88 0.72 - 1.25 mg/dL 05/04/2022 10:[address] [facility] Alkaline Phosphatase 88 40 - 150 U/L 05/04/2022 10:10 AM [facility] ALT 46 0 - 61 U/L 05/04/2022 10:10 AM CDT [facility] AST 25 5 - 34 U/L 05/04/2022 10:10 AM [facility] Protein Total 7.5 6.4 - 8.3 gm/dL 05/04/2022 10:10 AM CDT [facility] Albumin 4.4 3.5 - 5.2 gm/dL 05/04/2022 10:10 AM CDT [facility] Bilirubin Total 0.7 0.2 - 1.2 mg/dL 05/04/2022 10:[address] [facility] eGFR by CKD-EPI >90 >=90 mL/min/1.7 3 m2 05/04/2022 10:10 AM CDT [facility] Blood BLOOD SPECIMEN / Unknown Venipuncture / Unknown 05/04/2022 9:45 AM CDT 05/04/2022 9:49 AM CDT Disha Mojica PA-C LAB - CHEMISTRY ORDERABLES Performing Organization Address [facility]/ZIP Co de Phone Number [facility] [address] [place] [address] * MAGNESIUM BLOOD (05/04/2022 9:45 AM CDT) Magnesium 2.0 1.6 - 2.6 mg/dL 05/04/2022 10:10 AM CDT [facility] Blood BLOOD SPECIMEN / Unknown Venipuncture / Unknown 05/04/2022 9:45 AM CDT 05/04/2022 9:49 AM CDT Disha Mojica PA-C LAB - CHEMISTRY ORDERABLES Performing Organization Address [facility] Co de Phone Number [facility] [address] [place] [address] * EKG 12-LEAD (05/04/2022 9:36 AM CDT) Ventricular Rate 107 BPM [facility] Atrial Rate 107 BPM [facility] P-R Interval 120 ms [facility] QRS Duration ms 106 ms [facility] Q-T Interval ms 348 ms [facility] QTC Calculation (Bezet) 464 ms [facility] Calculated P [place] 73 degrees [facility] Calculated R [place] 33 degrees [facility] Calculated T [place] 40 degrees [facility] Interpretation EKG Sinus tachycardia Otherwise normal ECG No previous ECGs available Confirmed by FAIZA JOEL MD ([id number]) on 05/07/2022 10:25:19 PM [facility] 05/04/2022 9:36 AM CDT 05/07/2022 10:25 PM CDT Disha Mojica PA-C ECG ORDERABLES [facility] * (ABNORMAL) SARS-COV-2 (COVID-19) AG (AMB) POCT (03/17/2021 4:52 PM CDT) SARS-CoV-2 Ag Positive(A) Negative [facility] Lot # [id number] [facility] Expiration Date 07/03/22 [facility] Instrument Serial Number [id number] [facility] COVID Internal Control Acceptable Acceptable [facility] Microbiology SPECIMEN FROM NASAL FOSSAE / Unknown 03/17/2021 4:52 PM CDT Narrative [facility] - 03/17/2021 4:53 PM CDT SARS-CoV-2 antigen [...] assay are available upon request. Jesus Dominguez [employer] LAB - POINT OF CARE ORDERABLES [facility] [address] [place], [place] [id number] [place] [address] * [place] NASAL ENDOSCOPY,DX (09/15/2019 10:40 AM MANAGER STUDENT [employer]) Narrative Lydia Laws, MARGO - 09/15/2019 10:40 AM MANAGER STUDENT SERVICES Lydia Laws APRN-CNP ? 09/15/2019 10:41 AM Procedure Note Endoscopy Type: ??Nasal Endoscopy without debridement Anesthesia: Lidocaine 2% and Bradly-Synephrine 1/2% Procedure Details: After topical anesthesia and decongestion, the patient was placed in the sitting position. ??The zero degree telescope was passed along the left nasal floor to the nasopharynx. ??It was then passed into the region of the middlemeatus, middle turbinate, and the sphenoethmoid region. An identical procedure was performed on the right side. ??The following findings were noted as stated below: Findings: ??Mild left sided deviation with a spur. ??No purulence ir polyps noted Condition: Stable. ??Patient tolerated procedure well. Complications: None I was present for the entirety of the procedure. Lydia ARAGON PROCEDURE/MINOR SURGICAL ORDERABLES Care Teams Earring Maker Relationship Specialty Start Date End Date Haris Hoffman DO PCP - General 05/23/19
--- OUTSIDE RECORDS SUMMARY | 2024-07-02 06:31 | XMS_ITS | Data Portability ---
Author Organization [place] [facility] Create , Search to Phone [facility] Address [address] [place] [address] Assessment Encounter Date Assessment Date Assessment LastModified [...] 40 mg tablet,del ayed release 2023 024 [facility]/Pharmacy #[id number], [address], [place], [address], 18:51:55 Patient TargetsNo targets recorded. Patient Instructions Encounter Date Encounter Id Patient Instructions Last Modified By Organization Details Last Modified Time 05/26/2024 [id number] gastroesophageal reflux disease (GERD): care instructions Not [...] enidate ER 15 mg capsule,ext ended release [id number] TAKE 1 CAPSULE BY MOUTH EVERY [...] Diagnosis/Indication Diagnosis SNOMED-CT Code Diagnosis ICD10 Code [id number] SHILOH May [facility] [address] [place] [address] 05/26/2024 18:25:00 05/27/2024 00:42:22 Gastroesophageal reflux disease [id number] K21.9 Health Concerns Section Related Observation LastModified by Organization Detai ls LastModified Time None Recorded Concern Status LastModified by Organization Details LastModified Time None Recorded Advance Directives Directive None Recorded Payers Encounter Date Sequence Insurance Name Policy Number Policy Zambrano Covered Member ID Zambrano Member ID Guarantor Name 05/26/2024 1 [facility] [id number] David Rider [id number] David Rider 05/26/2024 3 *SELF PAY* [id number] David Rider [id number] David Rider Notes Date Note Type Note [...] state at the time of visit: [place]. The patient consents to the use of [employer] technology. Previous visits and labs reviewed, if available.Patient at time of visit located in: [place] HPI: pt reports he has been having [...] Hoarseness:+? Dental concerns:-? Additional symptoms:- SHILOH May [address] [place] [address], [place], [address], [facility] - [facility] 05/26/2024 18:55:05
--- OUTSIDE RECORDS SUMMARY | 2024-07-02 06:31 | XMS_ITS | Referral Summary ---
Author Organization [facility] Address [address] [place] [address] Care Team Providers Care Sulphate Tester Name Role Phone Haris Hoffman Vicente HIDALGO Primary Care Provider + Source Comments [facility],non-owned Affiliates and Associated Physician Practices is amultiple site organization consisting of ambulatory clinics and hospital sitesin [place], [place], [place] and [place]. This disclosure is being madepursuant to the Care Everywhere program and may not contain all information available regarding this patient. Last updated 18.[facility] [employer] Allergies No known active allergies Medications * Be aware that medications may not be up to date on this document. Alwaysverify current medications with the patient. Medication Sig Dispensed Refills Start Date End Date Status Cholecalciferol (VITAMIN D PO) Active fluticasone propionate (FLONASE ALLERGY RELIEF) 50 MCG/ACT nasal sprayIndications:Al lergic Rhinitis [place] 2 sprays into each nostril once daily [...] 04/12/2021 12:48 PM CDT Plan of Treatment Not on file Procedures Procedure Name Priority Date/Time Associated Diagnosis Comments COMPREHENSIVE METABOLIC PANEL STAT 05/04/2022 9:45 AM CDT from Last 3 Months or Most Recently Relevant to Health Maintenance Results * (ABNORMAL) COMPREHENSIVE METABOLIC PANEL (05/04/2022 9:45 AM T) [facility] Glucose 97 70 - 105 mg/dL 05/04/2022 10:10 AM [facility] Sodium 138 136 - 145 mmol/L 05/04/2022 10:10 AM [facility] Potassium 4.1 3.5 - 5.1 mmol/L 05/04/2022 10:10 AM [facility] Chloride 106 98 - 107 mmol/L 05/04/2022 10:10 AM [facility] CO2 20(L) 23 - 31 mmol/L 05/04/2022 10:10 AM [facility] Calcium 9.6 8.4 - 10.4 mg/dL 05/04/2022 10:10 AM [facility] Anion Gap 12 8 - 18 mmol/L 05/04/2022 10:10 AM [facility] BUN 9 8.9 - 20.6 mg/dL 05/04/2022 10:10 AM [facility] Creatinine 0.88 0.72 - 1.25 mg/dL 05/04/2022 10:10 AM [facility] Alkaline Phosphatase 88 40 - 150 U/L 05/04/2022 10:10 AM [facility] ALT 46 0 - 61 U/L 05/04/2022 10:10 AM [facility] AST 25 5 - 34 U/L 05/04/2022 10:10 AM [facility] Protein Total 7.5 6.4 - 8.3 gm/dL 05/04/2022 10:10 AM [facility] Albumin 4.4 3.5 - 5.2 gm/dL 05/04/2022 10:10 AM [facility] Bilirubin Total 0.7 0.2 - 1.2 mg/dL 05/04/2022 10:10 AM [facility] eGFR by CKD-EPI >90 >=90 mL/min/1.7 3 m2 05/04/2022 10:10 AM [facility] Blood BLOOD SPECIMEN / Unknown Venipuncture / Unknown 05/04/2022 9:45 AM CDT 05/04/2022 9:49 AM CDT Disha Mojica PA-C LAB - CHEMISTRY ORDERABLES [facility] [address] [place] [address] from Last 3 Months or Most Recently Relevant to Health Maintenance Care Teams Sulphate Tester Relationship Specialty Start Date End Date Haris Hoffman DO PCP - General 05/23/19
--- OUTSIDE RECORDS SUMMARY | 2024-07-02 06:31 | XMS_ITS | Encounter Summary ---
Author Organization [facility] Address [address] [place] [address] Care Team Providers Care Investigator Cash Shortage Name Role Phone Haris Hoffman DO Primary Care Provider + Reason for Visit * Reason Onset Date Comments Sinusitis 10/20/2019 Encounter Details Date Type Department Care Team (Late st Contact Info) Description 10/20/2019 Telephone [facility] [address] [facility], [facility] [address] [place] [address] Clare Howard RN Sinusitis Social History Tobacco Use Types Packs/Day Years Used Date Smoking Tobacco: Never Smokeless Tobacco: Never Sex and Gender Information Value Date Recorded Sex Assigned at Not on file Gender Identity Not on file Sexual Orientation Not on file documented as of this encounter Miscellaneous Notes * Telephone Encounter - Clare Howard RN - 10/20/2019 2:03 PM CDT Returned call to pt who states he thinks his sinus infection is back. States has facial swelling, clear drainage from nose draining into throat, left sided congestion. Has recently finished prescription for Augmentin, and noted symptoms returning on Sunday. Discussed trying to avoid frequent antibiotic use, Recommended doing consistent nasal irrigations twice daily, increasing fluids to thin secretions, possible OTC decongestant. Pt will contact office if symptoms persist at the end of the week and will discuss with Dr. Lebron documented in this encounter Plan of Treatment Not on file documented as of this encounter Visit Diagnoses Not on filedocumented in this encounter Care Teams Investigator Cash Shortage Relationship Specialty Start Date End Date Haris Hoffman DO PCP - General 05/23/19 documented as of this encounter
--- OUTSIDE RECORDS SUMMARY | 2024-07-02 06:32 | XMS_ITS | Encounter Summary ---
Author Organization [facility] Address [address] [place] [address]. [place] [address] Care Team Providers Care Glaze Supervisor Name Role Phone Haris Hoffman DO Primary Care Provider + Reason for Visit * Reason Comments Weakness left arm , trouble g rippiing things Encounter Details Date Type Department Care Team (Late st Contact Info) Description 11/16/2021 2:20 PM CDT Office Visit [facility] Family & Internal Medicine [address] [phone] Haris Hoffman DO [address] [place] [address] Weakness (left arm , trouble grippiing things) Social History Tobacco Use Types Packs/Day Years Used Date Smoking Tobacco: Never Smokeless Tobacco: Never Alcohol Use Standard Drinks/Week Comments Yes 0 (1 standard drink = 0.6 oz pur e alcohol) AUDIT-C Answer Date Recorded Frequency of Alcohol Consumption Monthly or less 05/09/2019 Average Number of Drinks 1 or 2 019 Frequency of Binge Drinking Not on file 04/16 PHQ-2 Answer Date Recorded PHQ-2 Score - If the patient scores above 3, please move on to questions 3-9 0 11/16/2021 Sex and Gender Information Value Date Recorded Sex Assigned at Not on file Legal Sex Male 7:17 PM CDT Gender Identity Not on file Sexual Orientation Not on file Occupation Industry Job Start Date Job End Date Not on file Not on file Not on file Not on file COVID-19 Exposure Response Date Recorded In the last 10 days, have geraldo u been in contact with someone who was confirmed or suspected to have Coronavirus/COVID-19? No / Unsure 11/16/2021 1:59 PM CDT documented as of this encounter Last Filed Vital Signs Vital Sign Reading Time Taken Comments Blood Pressure 122/84 11/16/2021 2:04 PM CDT Pulse 114 11/16/2021 2:04 PM CDT Temperature 36.9 ??C (98.5 ??F) 11/16/2021 2:04 PM CD T Respiratory Rate 16 11/16/2021 2:04 PM CDT Oxygen Saturation 100% 11/16/2021 2:04 PM CDT Inhaled Oxygen Concentration - - Weight 116.2 kg (256 lb 3.2 oz) 11/16/2021 2:04 PM CDT Height 188 cm (6' 2 ) 11/16/2021 2:04 PM CDT Body Mass Index 32.89 11/16/2021 2:04 PM CDT documented in this encounter Progress Notes * Haris Hoffman, - 11/16/2021 2:20 PM CDT Images from the original note were not included. GENERAL OFFICE VISIT Encounter Date: 11/16/2021 Chief Complaint: 41-year-old male presents for Weakness (left arm , trouble grippiing things) HPI: Pt presents for left arm pain and weakness. Pt had self-diagnosed tennis elbow on the left elbow about 6 weeks ago. He does repetitive work with his occupation. He wore a sleeve to help with this. The pain improved, but pt's left hand feels subjectively weak on that side. It is more of an issue with heavy objects; not with fine motor motion or items like pencils and utensils. No numbness/tingilng. No injury. Pt is on several medications; the newest medicine is cyproheptadine which he is using for sleep/nightmare issues. Does have some mild pain in the forearm. Pt has multiple psychiatric diseases. Pt has ADHD, PTSD, MDD, and ROSY. He is on multiple different medications; pt sees psychiatry Ulysses Romero NP for this. He is stable. Review of Systems Constitutional: Negative for fever. Musculoskeletal: See HPI Skin: Negative for rash. Psychiatric/Behavioral: See HPI Patient Active Problem List Diagnosis ??? Mild episode of recurrent major depressive disorder (CMS/HCC) ??? BMI 30.0-30.9,adult ??? Gastroesophageal reflux disease with esophagitis ??? Recurrent sinus infections ??? Attention deficit hyperactivity disorder (ADHD), unspecified ADHD type ??? PTSD (post-traumatic stress disorder) ??? ROSY (generalized anxiety disorder) Past Medical History: Diagnosis Date ??? Back injury 2012 ??? Depression ??? Esophageal abnormality inflamed Past Surgical History: Procedure Laterality Date ??? SPINAL FUSION 2012 L5-S1 Family History Problem Relation Name Age of Onset ??? Diabetes Mother ??? Heart Disease Mother ??? Diabetes Brother Social History Socioeconomic History ??? Marital status: Spouse name: Not on file ??? Number of children: 4 ??? Years of education: Not on file ??? 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 Smoking status: Never Smoker ??? Smokeless tobacco: Never Used Substance and Sexual Activity ??? Alcohol use: Yes ??? Drug use: No ??? Sexual activity: Not on file Other Topics Concern ??? Not on file Social History Narrative ??? Not on file Social Determinants of Health Financial Resource Strain: Not on file Food Insecurity: Not on file Transportation Needs: Not on file Physical Activity: Not on file Stress: Not on file Social Connections: Not on file Intimate Partner Violence: Not on file Immunization History Administered Date(s) Administered ??? PFIZER COVID-19 (ORIGINAL FORMULATION, PURPLE CAP), MRNA, LNP-S, PF, 30 MCG/0.3 ML DOSE 10/10/2020, 10/31/2020, 07/30/2021 ??? Tdap (Generic) 09/02/2020 Current Outpatient Medications Medication Sig Dispense Refill ??? ADDERALL XR 20 MG 24 hr capsule Take 1 capsule by mouth daily. ??? ARIPiprazole 5 MG tablet Take 1 tablet by mouth daily. ??? buPROPion XL 150 MG 24 hr tablet Take 1 tablet by mouth daily. ??? buPROPion XL 300 MG 24 hr tablet Take 1 tablet by mouth daily. ??? busPIRone 10 MG tablet TAKE 2 TABLETS BY MOUTH TWICE A DAY FOR 30 DAYS ??? Cholecalciferol (VITAMIN D-3 OR) Take 3,000 Units by mouth daily. ??? cyproheptadine 4 MG tablet Take 1 tablet by mouth daily. ??? gabapentin 300 MG capsule TAKE 1 CAPSULE BY MOUTH 2 TIMES A DAY NEEDED FOR ANXIETY FOR 30 DAYS ??? naproxen 500 MG tablet Take 1 tablet (500 mg total) by mouth 2 (two) times daily with meals. 60tablet 0 ??? propranolol 20 MG tablet TAKE 1 TABLET BY MOUTH THREE TIMES A DAY FOR 30 DAYS ??? venlafaxine XR 37.5 MG 24 hr capsule TAKE 1 CAPSULE BY MOUTH EVERY DAY WITH FOOD FOR 30 DAYS ??? venlafaxine XR 75 MG 24 hr capsule TAKE 1 CAPSULE BY MOUTH EVERY DAY WITH FOOD FOR 30 DAYS No current facility-administered medications for this visit. Current Outpatient Medications on File Prior to Visit Medication Sig ??? ADDERALL XR 20 MG 24 hr capsule Take 1 capsule by mouth daily. ??? ARIPiprazole 5 MG tablet Take 1 tablet by mouth daily. ??? buPROPion XL 150 MG 24 hr tablet Take 1 tablet by mouth daily. ??? buPROPion XL 300 MG 24 hr tablet Take 1 tablet by mouth daily. ??? busPIRone 10 MG tablet TAKE 2 TABLETS BY MOUTH TWICE A DAY FOR 30 DAYS ??? Cholecalciferol (VITAMIN D-3 OR) Take 3,000 Units by mouth daily. ??? cyproheptadine 4 MG tablet Take 1 tablet by mouth daily. ??? gabapentin 300 MG capsule TAKE 1 CAPSULE BY MOUTH 2 TIMES A DAY NEEDED FOR ANXIETY FOR 30 DAYS ??? propranolol 20 MG tablet TAKE 1 TABLET BY MOUTH THREE TIMES A DAY FOR 30 DAYS ??? venlafaxine XR 37.5 MG 24 hr capsule TAKE 1 CAPSULE BY MOUTH EVERY DAY WITH FOOD FOR 30 DAYS ??? venlafaxine XR 75 MG 24 hr capsule TAKE 1 CAPSULE BY MOUTH EVERY DAY WITH FOOD FOR 30 DAYS No current facility-administered medications on file prior to visit. No Known Allergies Objective: Filed Vitals: 11/16/21 1404 BP: 122/84 Pulse: 114 Resp: 16 Temp: 98.5 ??F (36.9 ??C) TempSrc: Skin SpO2: 100% Weight: 116.2 kg (256 lb 3.2 oz) Height: 6' 2 (1.88 m) Physical Exam Vitals and nursing note reviewed. HENT: Head: Normocephalic and atraumatic. Right Ear: External ear normal. Left Ear: External ear normal. Eyes: Conjunctiva/sclera: Conjunctivae normal. Cardiovascular: Rate and Rhythm: Normal rate and regular rhythm. Heart sounds: Normal heart sounds. No murmur heard. No friction rub. No gallop. Pulmonary: Effort: Pulmonary effort is normal. No respiratory distress. Breath sounds: Normal breath sounds. No wheezing or rales. Abdominal: General: Bowel sounds are normal. Palpations: Abdomen is soft. Tenderness: There is no abdominal tenderness. Musculoskeletal: Comments: Pain exacerbated with resisted wrist extension at side of lateral epicondyle Skin: General: Skin is warm and dry. Findings: No rash. Neurological: Comments: Negative Tinel's B/L. 5/5 oil rig driller strength B/L Psychiatric: Comments: Stable today Assessment & Plan: David was seen today for weakness. Diagnoses and all orders for this visit: Lateral epicondylitis of left elbow - naproxen 500 MG tablet; Take 1 tablet (500 mg total) by mouth 2 (two) times daily with meals. Moderate episode of recurrent major depressive disorder (CMS/HCC) Attention deficit hyperactivity disorder (ADHD), unspecified ADHD type PTSD (post-traumatic stress disorder) ROSY (generalized anxiety disorder) Screening for endocrine, metabolic and immunity disorder - CBC W/DIFF AUTOMATED; Future - COMPREHENSIVE METABOLIC PANEL; Future - TSH W/REFLEX; Future - VITAMIN B-12; Future Screening for lipid disorders - LIPID PANEL; Future Annual physical exam - CBC W/DIFF AUTOMATED; Future - COMPREHENSIVE METABOLIC PANEL; Future - TSH W/REFLEX; Future - LIPID PANEL; Future - VITAMIN B-12; Future BMI 32.0-32.9,adult Need for hepatitis C screening test - HEPATITIS C ANTIBODY; Future Discussion/Summary: Symtpoms most consistent with lateral epicondylities. Recommend counterforce brace and will treat with naproxen as pre above. Consider prednisone and sports medicine referral or PT referral if not improving. Will order screening labs as per above. Continue f/u with psych for psychiatric diseases; continue current meds. Will have pt f/u depending upon improvement in symptoms and labs per above. Ptv/u. I spent 30 minutes today reviewing the patient's medical record, obtaining history, performing an exam, ordering medications, tests, and/or procedures, documenting in the medical record and counseling and educating the patient/family/caregiver. Haris Hoffman DO documented in this encounter Plan of Treatment Upcoming Encounters Date Type Department Care Team (Late st Contact Info) Description 07/30/2024 8:40 AM CAN MAKER Office Visit [facility] Family & Internal Medicine [address] [phone] Haris Hoffman DO [address] [place] [address] documented as of this encounter Results * HEPATITIS C ANTIBODY (11/21/2021 7:56 AM CDT) HEPATITIS C AB NON-REACTI VE NON-REACT [place] 11/21/2021 6:32 PM CDT [facility] Comment: ANTIBODIES TO HCV NOT DETECTED. DOES NOT EXCLUDE THE POSSIBILITY OF EXPOSURE TO HCV. 11/21/2021 7:56 AM CDT Haris Hoffman DO LABORATORY Final Re sult Performing Organization Address [facility]/ZIP Co de Phone Number [facility] [address] [place] [address], [phone] * VITAMIN B-12 (11/21/2021 7:56 AM CDT) VITAMIN B12 S/P/B 413 193 - 986 PG/ML 11/21/2021 6:16 PM CDT [facility] 11/21/2021 7:56 AM CDT Haris Hoffman DO LABORATORY Final Re sult GREG [facility], [address] [place] [address], [place] [phone] * (ABNORMAL) LIPID PANEL (11/21/2021 7:56 AM CDT) CHOLESTEROL 194 <200 MG/DL 11/21/2021 6:16 PM CDT [facility] TRIGLYCERIDES 145 <150 MG/DL 11/21/2021 6:16 PM CDT [facility] HDL 47 >40 MG/DL 11/21/2021 6:16 PM CDT [facility] LDL-C 118(H) <100 MG/DL 11/21/2021 6:16 PM CDT [facility] VLDL CALCULATION 29(H) 5 - 28 MG/DL 11/21/2021 6:16 PM CDT [facility] CHOL/HDL RATIO 4.1(H) 0.0 - 4.0 11/21/2021 6:16 PM CDT [facility] LDL/HDL 2.5(H) 0.41 - 2.13 11/21/2021 6:16 PM CDT [facility] NON HDL CHOLESTEROL 147(H) <140 MG/DL 11/21/2021 6:16 PM CDT [facility] 11/21/2021 7:56 AM CDT Haris Hoffman DO LABORATORY Final Re sult AFSANEH DAVISFIELD [address] [place] [address], [place] [phone] * TSH W/REFLEX (11/21/2021 7:56 AM CDT) TSH 1.744 0.358 - 3.740 uIU/ML 11/21/2021 6:16 PM CDT [facility] 11/21/2021 7:56 AM CDT Haris Hoffman DO LABORATORY Final Re sult -AFSANEH HERNANDEZFIELD [address] [place] [address], * (ABNORMAL) COMPREHENSIVE METABOLIC PANEL (11/21/2021 7:56 AM CDT) Pathologist [facility] SODIUM S/P/B 142 136 - 145 MMOL/L 11/21/2021 6:16 PM CDT [facility] POTASSIUM S/P/B 4.2 3.5 - 5.1 MMOL/L 11/21/2021 6:16 PM CDT [facility] CHLORIDE S/P/B 104 98 - 107 MMOL/L 11/21/2021 6:16 PM CDT [facility] CO2 27.1 21 - 32 MMOL/L 11/21/2021 6:16 PM CDT [facility] GLUCOSE 110(H) 70 - 99 MG/DL 11/21/2021 6:16 PM CDT [facility] BUN 14 6 - 24 MG/DL 11/21/2021 6:16 PM CDT [facility] CREATININE S/P/B 0.96 0.70 - 1.30 MG/DL 11/21/2021 6:16 PM CDT [facility] CALCIUM S/P/B 8.8 8.4 - 10.5 MG/DL 11/21/2021 6:16 PM CDT [facility] BILIRUBIN TOTAL S/P/B 1.3(H) 0.2 - 1.0 MG/DL 11/21/2021 6:16 PM CDT [facility] ALKALINE PHOSPHATASE S/P/B 68 45 - 115 U/L 11/21/2021 6:16 PM CDT [facility] AST 41(H) 15 - 37 U/L 11/21/2021 6:16 PM CDT [facility] ALT 108(H) 16 - 63 U/L 11/21/2021 6:16 PM CDT [facility] TOTAL PROTEIN S/P/B 7.1 6.4 - 8.2 G/DL 11/21/2021 6:16 PM T [facility] ALBUMIN S/P/B 4.0 3.4 - 5.0 G/DL 11/21/2021 6:16 PM T [facility] ANION GAP 10.9 5 - 15 MMOL/L 11/21/2021 6:16 PM T [facility] Comment:REFERENCE RANGE NOT ESTABLISHED OSMOLALITY (CALC) 295 MOSM/KG 022 6:16 PM T [facility] Comment:REFERENCE RANGE NOT ESTABLISHED GFR ESTIMATE >90 >90 ML/MIN/1. 73 M2 11/21/2021 6:16 PM T [facility] GFR NOTES GFR REFERENCE S: 11/21/2021 6:16 PM [facility] Comment: THE ESTIMATED GFR IS CALCULATED USING THE 2020 CKD-EPI EQUATION. THE FOLLOWING CATEGORIES FOR GRADING RENAL FUNCTION ARE RECOMMENDED BY THE INTERNATIONAL SOCIETY OF NEPHROLOGY (KDIGO 2012 CLINICAL PRACTICE GUIDELINE). G1,NORMAL OR HIGH: >89 ml/min/1.73 m2 G2,MILDLY DECREASED: 60-89 ml/min/1.73 m2 G3A,MILDLY TO MODERATELY DECREASED: 45-59 ml/min/1.73 m2 G3B,MODERATELY TO SEVERELY DECREASED: 30-44 ml/min/1.73 m2 G4,SEVERELY DECREASED: 15-29 ml/min/1.73 m2 G5,KIDNEY FAILURE: <15 ml/min/1.73 m2 11/21/2021 7:56 AM CDT Haris Hoffman DO LABORATORY Final Re sult -LATA HENSON [address] [place] [address], * (ABNORMAL) CBC W/DIFF AUTOMATED (11/21/2021 7:56 AM CDT) [facility] Signature WBC 7.4 4.0 - 10.8 x10'3/uL 11/21/2021 2:57 PM CDT [facility] RBC 5.29 4.50 - 6.10 x10'6/uL 11/21/2021 2:57 PM CDT [facility] HGB 16.9 13.0 - 18.0 G/DL 11/21/2021 2:57 PM CDT [facility] HCT 48.9 37.0 - 52.0 % 11/21/2021 2:57 PM CDT [facility] MCV 92.4 78.0 - 100.0 FL 11/21/2021 2:57 PM CDT [facility] MCH 31.9(H) 27.0 - 31.0 PG 11/21/2021 2:57 PM CDT [facility] MCHC 34.6 33.0 - 36.0 G/DL 11/21/2021 2:57 PM CDT [facility] RDW 11.8 11.5 - 14.5 % 11/21/2021 2:57 PM CDT [facility] PLT 324 150 - 350 x10'3/uL 11/21/2021 2:57 PM CDT [facility] MPV 9.2 7.4 - 10.4 FL 11/21/2021 2:57 PM CDT [facility] DIFFERENTIAL TYPE AUTOMATED DIFFERENTIAL 11/21/2021 2:57 PM CDT [facility] NEUTROPHILS % 61.9 % 11/21/2021 2:57 PM CDT [facility] LYMPHOCYTES % 29.3 % 11/21/2021 2:57 PM CDT [facility] MONOCYTES % 7.1 % 11/21/2021 2:57 PM CDT [facility] EOSINOPHILS % 1.1 % 11/21/2021 2:57 PM CDT [facility] BASOPHILS % 0.3 % 11/21/2021 2:57 PM CDT [facility] IMMATURE GRANS % 0.3 % 11/21/2021 2:57 PM CDT [facility] ABS. NEUTROPHILS 4.60 1.60 - 8.30 x10'3/uL 11/21/2021 2:57 PM CDT [facility] ABS. LYMPHOCYTES 2.18 0.80 - 4.70 x10'3/uL 11/21/2021 2:57 PM CDT [facility] ABS. MONOCYTES 0.53 0.00 - 1.50 x10'3/uL 11/21/2021 2:57 PM CDT [facility] ABS. EOSINOPHILS 0.08 0.00 - 0.40 x10'3/uL 11/21/2021 2:57 PM CDT [facility] ABS. BASOPHILS 0.02 0.00 - 0.20 x10'3/uL 11/21/2021 2:57 PM CDT [facility] ABS. IMMATURE GRANULOCYTES 0.02 0.00 - 0.03 x10'3/uL 11/21/2021 2:57 PM CDT [facility] 11/21/2021 7:56 AM CDT us Haris Hoffman DO LABORATORY Final Re sult [facility] [address] [address] [place] [address], documented in this encounter Visit Diagnoses Diagnosis Lateral epicondylitis of left elbow- Primary Lateral epicondylitis of elbow Moderate episode of recurrent major depressive disorder (CMS/HCC HHS/HCC) Attention deficit hyperactivity disorder (ADHD), unspecified ADHD type PTSD (post-traumatic stress disorder) Posttraumatic stress disorder ROSY (generalized anxiety disorder) Generalized anxiety disorder Screening for endocrine, metabolic and immunity disorder Screening for lipid disorders Annual physical exam Routine general medical examination at a health care facility BMI 32.0-32.9,adult Body Mass Index 32.0-32.9, adult Need for hepatitis C screening test Special screening examination for other specified viral diseases documented in this encounter Care Teams Glaze Supervisor Relationship Specialty Start Date End Date Haris Hoffman DO [address] [place] [address] PCP - General FAMILY PRACTICE 05/09/19 documented as of this encounter
--- OUTSIDE RECORDS SUMMARY | 2024-07-02 06:32 | XMS_ITS | Encounter Summary ---
Author Organization [facility] Address [address] [place] [address]. [place], [place] [address] [place] [id number] Care Team Providers Care Bryologist Name Role Phone Haris Hoffman DO Primary Care Provider + Encounter Details Date Type Department Care Team (Latest Contact Info) Description 10/03/2023 Travel Social History Tobacco Use Types Packs/Day [...] on file 04/16 PHQ-2 Answer Date Recorded Patient Health Questionnaire-2 Score 0 10/03/2023 Sex and Gender Information Value Date Recorded Sex Assigned at Not on file Legal Sex Male 7:17 PM CDT Gender Identity Not on file Sexual Orientation Not on file Occupation Industry Job Start Date Job End Date Not on file Not on file Not on file Not on file documented as of this encounter Plan of Treatment Upcoming Encounters Date Type Department Care Team (Late st Contact Info) Description 07/30/2024 8:40 AM FOREST SUPERVISOR Office Visit [facility] Family & Internal Medicine - [address] [phone] Haris Hoffman DO [address] [place] [phone] documented as of this encounter Visit Diagnoses Not on filedocumented in this encounter Care Teams Bryologist Relationship Specialty Start Date End Date Haris Hoffman DO [address] [place] [phone] PCP - General FAMILY PRACTICE 05/09/19 documented as of this encounter
--- OUTSIDE RECORDS SUMMARY | 2024-07-02 06:32 | XMS_ITS | Encounter Summary ---
Author Organization [facility] Address [address] [place] [address]. [place] [address] Care Team Providers Care Blood Bank Laboratory Technician Name Role Phone Haris Hoffman DO Primary Care Provider + Reason for Visit * Reason Onset Date Comments Record Request 01/09/2024 Encounter Details Date Type Department Care Team (Late st Contact Info) Description 01/09/2024 Telephone [facility] Family & Internal Medicine [place] [id number] [place] [phone] Haris Hoffman DO [address] [place] [address] Record Request Social History Tobacco Use Types Packs/Day Years [...] on file documented as of this encounter Progress Notes * Elizabeth Sánchez MA - 01/09/2024 11:32 AM CDT Incoming sinus [facility] from [facility] and sent to PCP documented in this encounter Plan of Treatment Upcoming Encounters Date Type Department Care Team (Late st Contact Info) Description 07/30/2024 8:40 AM HEATSET WINDER OPERATOR Office Visit [facility] Family & Internal Medicine - [place] [address] [place] [address] Haris Hoffman DO [facility] [place] [address] documented as of this encounter Visit Diagnoses Not on filedocumented in this encounter Care Teams Blood Bank Laboratory Technician Relationship Specialty Start Date End Date Haris Hoffman DO [address] [place] [id number] PCP - General FAMILY PRACTICE 05/09/19 documented as of this encounter
--- OUTSIDE RECORDS SUMMARY | 2024-07-02 06:32 | XMS_ITS | Encounter Summary ---
Author Organization [facility] Address [address] [facility] [place] [address] Care Team Providers Care House Piping Inspector Name Role Phone Haris Hoffman DO Primary Care Provider + Reason for Visit * Reason Onset Date Comments Follow-up 08/24/2019 Encounter Details Date Type Department Care Team (Late st Contact Info) Description 08/24/2019 Telephone [facility] AT [address] [phone] Patricia Cheng APRN-CNP [address] [place] [address] Follow-up Social History Tobacco Use Types Packs/Day Years Used Date Smoking Tobacco: Never Smokeless Tobacco: Never Sex and Gender Information Value Date Recorded Sex Assigned at Not on file Gender Identity Not on file Sexual Orientation Not on file documented as of this encounter Miscellaneous Notes * Telephone Encounter - Patricia Cheng APRN-CNP - 08/24/2019 10:36 AM HEARING IMPAIRED TEACHER Courtesy follow-up phone call made to patient. Message left advising patient to call service [facility] [phone] if they have any questions or concerns. Patricia Cheng DNP, MUSIC TEACHER-BC ING IMPAIRED TEACHER documented in this encounter Plan of Treatment Not on file documented as of this encounter Visit Diagnoses Not on filedocumented in this encounter Care Teams House Piping Inspector Relationship Specialty Start Date End Date Haris Hoffman DO PCP - General 05/23/19 documented as of this encounter
--- OUTSIDE RECORDS SUMMARY | 2024-07-02 06:32 | XMS_ITS | Encounter Summary ---
Author Organization [facility] Address [address] [facility] [place] [address] Care Team Providers Care Monomer Recovery Operator Name Role Phone Haris Hoffman DO Primary Care Provider + Reason for Visit * Reason Comments Results Encounter Details Date Type Department Care Team (Late st Contact Info) Description 09/22/2019 9:45 AM CDT Office Visit [facility] [address] [address] Jose Lebron MD [address] [facility] [address] [place] [address] Acute recurrent pansinusitis (Primary Dx); Deviated septum Social History Tobacco Use Types Packs/Day Years Used Date Smoking Tobacco: Never Smokeless Tobacco: Never Sex and Gender Information Value Date Recorded Sex Assigned at Not on file Gender Identity Not on file Sexual Orientation Not on file documented as of this encounter Last Filed Vital Signs Vital Sign Reading Time Taken Comments Blood Pressure 122/84 09/22/2019 10:50 AM CDT Pulse - - Temperature - - Respiratory Rate - - Oxygen Saturation - - Inhaled Oxygen Concentration - - Weight 110.2 kg (243 lb) 09/22/2019 10:50 AM CDT Height 188 cm (6' 2 ) 09/22/2019 10:50 AM CDT Body Mass Index 31.2 09/22/2019 10:50 AM CDT documented in this encounter Patient Instructions * Patient Instructions* Violette Mcgill - 09/22/2019 10:51 AM CDT Thank you for visiting [facility] Otolaryngology - Head & Neck Surgery. We appreciate your confidence in allowing us to participate in your health care. You may receive a survey about your visit with us today. Making our patients happy isn't just happy talk; it's our mission. Please tell us ifwe made the right impression on you- and how we can serve you better. Please SAVE the information below, it will assist you when it's time for you to contact us. To MAKE - CHANGE - CANCEL an office appointment If you become ill, need to be seen before your next scheduled appointment, or need to cancel or reschedule an appointment, please call our office at [phone] Sunday through Sunday from 8:30 am to4:30 pm. You can also request a routine appointment through your [facility] account. Prescription Refills Contact your pharmacy to request all refills. The pharmacy will need to fax the request to us at . Please allow a minimum of 48-72 hours for your prescription to be completed. Your pharmacy will notify you when your prescription is ready to be picked up. Medical Emergency / After Hours Contact Information If you have a medical emergency, please call 911 or go to the nearest emergency room. For urgent medical calls which cannot wait until the office opens, please call the medical exchangeat and ask the seaming machine operator to page the ENT physician commissioning manager. *Caller ID blocking service will need to be turned off for your call to be returned. We also specialize in Hearing Aids, Allergy testing, swallowing disorders, voice problems, cancer diagnosis, and so much more. Visit our website at [email or web address] for information about our practice and an interactive healthencyclopedia. documented in this encounter Progress Notes * Jose Lebron MD - 09/22/2019 11:14 AM CDT Chief Complaint: Nasal infections History of Present Illness: 39 year old with a h/o multiple nasal symptoms. Main symptom or complaint: facial pressure, fatigue; Duration: several weeks each time, 6 times per year for 10 years. Usual symptoms of sinus infections? As above. ;;Other associated symptoms: Sinus pressure: 6-7/10;Hyposmia: some;Nasal discharge: yes, Color: clear to thick and green;Nasal congestion/stuffy nose: left >right; Nasal obstruction/blokage: left side; History of allergy testing? no;History of allergy shots? no;History of medicationtrials... Flonase, Astelin or other nasal steroid spray: recently, helps some, in the past, help temporarily;Zyrtec/Shannon/Claritin/Benadryl: claritin helps some;Sudafed: no;Singulair(montelukast):no; Mucinex: sometimes; Sinus rinses: started recently; Antibiotics: yes, multiple long rounds of infection; Steroids by mouth: yes, in the past; Prior CT scan:yes; Prior surgery:no. Smoker: no Asthma: no. Acid reflux: some. Migraines: no, ASHLYN: snores Does the patient feel that they are having CURRENT acute symptoms/active infection: some drainage from the nose, clear Review of Systems: ROS x 11 was performed and was negative except for the above mentioned symptoms. Past Medical History: Diagnosis Date ??? Anxiety and depression PSH: has a past surgical history that includes lumbar spine fusion. Current Outpatient Medications Medication Sig Dispense Refill ??? benzonatate (TESSALON) 100 MG capsule Take 1 capsule by mouth 3 times daily as needed for Cough30 capsule 0 ??? BuPROPion HCl (WELLBUTRIN PO) ??? Cholecalciferol (VITAMIN D PO) ??? DULoxetine (CYMBALTA) 60 MG capsule Take 60 mg by mouth once daily ??? fluticasone propionate (FLONASE ALLERGY RELIEF) 50 MCG/ACT nasal spray [place] 2 sprays into eachnostril once daily Reasons: Allergic Rhinitis 1 bottles 0 No current facility-administered medications for this visit. Allergies Patient has no known allergies. Social History Tobacco Use ??? Smoking status: Never Smoker ??? Smokeless tobacco: Never Used Substance Use Topics ??? Alcohol use: Not on file ??? Drug use: Not on file No family history on file. Physical Exam: Constitutional: Alert, No acute Distress; Well developed/well nourished Neuro:cranial nerves III-XII grossly intact CV/Pulm: Normal respirations and peripheral pulses. Eyes: PERRL, EOMI Face/Skin: normal appearance, no lesions/masses Ears: Right: Normal external Auditory canal Left: Normal external Auditory canal Nose: congested bilaterally,Turbinates enlarged, Mucosal membranes intact, septum is deviated Mouth and oropharynx: symmetric tongue mobility, no lesions/masses/ulcers, Neck: supple, no lymphadenopathy, no masses Voice: strong MusculoSkeletal: moves all extremities well CT: reviewed with patient showing moderate amounts of sinusitis in multiple different sinuses Assessment and Plan: David Rider is a 39 year old male with a longstanding history of nasal symptoms including 6 sinusinfections per year, confirmed on CT scan today. Today we discussed the many options available to patients with sinus symptoms. This ranged from least invasive to most aggressive and included the following options: 1. Discontinuing their medications and providing no further treatment. 2. Continuing the current regimen. 3. Continuing current medications and add several others, making sure that they are on an antihistamine such as Zyrtec/Shannon/Claritin, a nasal steroid spray such as Flonase or Nasonex, and sinus rinses. 4. Adding a trial of antibiotics and by mouth steroids. 5. Performing a CT scan of the sinuses. 6. Performing allergy testing and subsequent allergy shots. 7. Performing sinus surgery. We also discussed the fact that many other disease processes have overlapping symptoms, including migraines, GERD, and ASHLYN. After the discussion of the above options, the patient has elected to undergo maximal medical therapy for now, consider surgery in the future. We will have the patient follow up if surgery is desired. Jose Lebron MD 09/22/2019 11:14 AM * McgillViolette - 09/22/2019 10:52 AM CDT Review of Systems David reports the following: Pt states that nothing is bothering him documented in this encounter Plan of Treatment Not on file documented as of this encounter Visit Diagnoses Diagnosis Acute recurrent pansinusitis- Primary Other acute sinusitis Deviated septum Deviated nasal septum documented in this encounter Care Teams Monomer Recovery Operator Relationship Specialty Start Date End Date Haris Hoffman DO PCP - General 05/23/19 documented as of this encounter
--- OUTSIDE RECORDS SUMMARY | 2024-07-02 06:32 | XMS_ITS | Encounter Summary ---
Author Organization [facility] Address [address] [place] [address]. [place] [id number] [place] [address] Care Team Providers Care Book Critic Name Role Phone Haris Hoffman DO Primary Care Provider + Encounter Details Date Type Department Care Team (Latest Contact Info) Description 12/19/2023 Scan HEALTH INFO [facility] Scanned, Doc Med Group Social History Tobacco Use Types Packs/Day Years [...] st Contact Info) Description 07/30/2024 8:40 AM FOOD SERVICE UTILITY WORKER Office Visit [facility] Family & Internal Medicine [address] [phone] Haris Hoffman DO [address] [place] [phone] documented as of this encounter Visit Diagnoses Not on filedocumented in this encounter Care Teams Book Critic Relationship Specialty Start Date End Date Haris Hoffman DO [address] [place] [address] PCP - General FAMILY PRACTICE 05/09/19 documented as of this encounter
--- OUTSIDE RECORDS SUMMARY | 2024-07-02 06:32 | XMS_ITS | Encounter Summary ---
Author Organization [facility] Address [address] [facility] [place] [address] Care Team Providers Care Alarm Security Or Surveillance Monitor Name Role Phone Unavailable Primary Care Provider Unavailabl e Reason for Visit * Reason Onset Date Comments Follow-up 03/01/2019 Encounter Details Date Type Department Care Team (Late st Contact Info) Description 03/01/2019 Telephone [facility] AT [address] [address] Patricia Cheng, DIRECTOR CORPORATE SALES-[facility] [address] [place] [address] Follow-up Social History Tobacco Use [...]
--- OUTSIDE RECORDS SUMMARY | 2024-07-02 06:32 | XMS_ITS | Encounter Summary ---
Author Organization [facility] Address [address] [facility] [place] [address] Care Team Providers Care Fullerette Name Role Phone Haris Hoffman DO Primary Care Provider + Reason for Visit * Reason Onset Date Comments Med Question 09/26/2019 Encounter Details Date Type Department Care Team (Late st Contact Info) Description 09/26/2019 Telephone [facility] [address] [facility], [address] [place] [address] Jose Lebron MD [address] [place] [address] [place] [address] Med Question Social History Tobacco Use Types Packs/Day Years Used Date Smoking Tobacco: Never Smokeless Tobacco: Never Sex and Gender Information Value Date Recorded Sex Assigned at Not on file Gender Identity Not on file Sexual Orientation Not on file documented as of this encounter Miscellaneous Notes * Telephone Encounter - Tyresecayla Varsha D - 09/26/2019 8:42 AM CDT Patient called stating he is a patient of Dr. Lebron. He would like to have an antibiotic prescription sent to his pharmacy, just incase he were to need it in the future. He did not leave a pharmacy name or number. Requests that return call be made to his at [phone] documented in this encounter Plan of Treatment Not on file documented as of this encounter Visit Diagnoses Not on filedocumented in this encounter Care Teams Fullerette Relationship Specialty Start Date End Date Haris Hoffman DO PCP - General 05/23/19 documented as of this encounter
--- OUTSIDE RECORDS SUMMARY | 2024-07-02 06:32 | XMS_ITS | Encounter Summary ---
Author Organization [facility] Address [address] [facility] [place] [address] Care Team Providers Care Raw Material Planner Name Role Phone Haris Hoffman DO Primary Care Provider + Reason for Visit * Reason Onset Date Comments Follow-up 07/30/2019 Encounter Details Date Type Department Care Team (Late st Contact Info) Description 07/30/2019 Telephone [facility] AT [address] [address] Patricia Cheng APRN-CNP [address] [place] [address] Follow-up Social History Tobacco Use Types Packs/Day Years Used Date Smoking Tobacco: Never Smokeless Tobacco: Never Sex and Gender Information Value Date Recorded Sex Assigned at Not on file Gender Identity Not on file Sexual Orientation Not on file documented as of this encounter Miscellaneous Notes * Telephone Encounter - Patricia Cheng APRN-CNP - 07/30/2019 6:47 PM ASBESTOS WIRE FINISHER Courtesy follow-up phone call made to patient. Message left advising patient to call service [facility] [phone] if they have any questions or concerns. Patricia Cheng DNP, APPRENTICE PLANT ATTENDANT-BC STOS WIRE FINISHER documented in this encounter Plan of Treatment Not on file documented as of this encounter Visit Diagnoses Not on filedocumented in this encounter Care Teams Raw Material Planner Relationship Specialty Start Date End Date Haris Hoffman DO PCP - General 05/23/19 documented as of this encounter
--- OUTSIDE RECORDS SUMMARY | 2024-07-02 06:32 | XMS_ITS | Encounter Summary ---
Author Organization [facility] Address [address] [place] [address] Care Team Providers Care Alarm Adjuster Name Role Phone Haris Hoffman Vicente HIDALGO Primary Care Provider + Encounter Details Date Type Department Care Team (Late st Contact Info) Description 09/15/2019 9:30 AM WELDING MACHINE OPERATOR ULTRASONIC Office Visit [facility] [address], [address] [place] [address] Lydia Laws, KEY ACCOUNT REPRESENTATIVE-VP PRODUCT MANAGEMENT [address] [place] [address] Chronic sinusitis, unspecified location (Primary Dx) Social History Tobacco Use Types Packs/Day Years Used Date Smoking Tobacco: Never Smokeless Tobacco: Never Sex and Gender Information Value Date Recorded Sex Assigned at Not on file Gender Identity Not on file Sexual Orientation Not on file documented as of this encounter Last Filed Vital Signs Vital Sign Reading Time Taken Comments Blood Pressure 129/85 09/15/2019 9:32 AM WELDING MACHINE OPERATOR ULTRASONIC Pulse 97 09/15/2019 9:32 AM WELDING MACHINE OPERATOR ULTRASONIC Temperature - - Respiratory Rate - - Oxygen Saturation - - Inhaled Oxygen Concentration - - Weight 110.2 kg (243 lb) 09/15/2019 9:32 AM WELDING MACHINE OPERATOR ULTRASONIC Height 188 cm (6' 2 ) 09/15/2019 9:32 AM WELDING MACHINE OPERATOR ULTRASONIC Body Mass Index 31.2 09/15/2019 9:32 AM WELDING MACHINE OPERATOR ULTRASONIC documented in this encounter Patient Instructions * Patient Instructions* Lanny Galeano - 09/15/2019 9:33 AM WELDING MACHINE OPERATOR ULTRASONIC Thank you for visiting [facility] Otolaryngology - Head & Neck Surgery. We appreciate your confidence in allowing us to participate in your health care. You may receive a survey about your visit with us today. Making our patients happy isn???t just happy talk; it???s ourmission. Please tell us if we made the right impression on you- and how we can serve you better. Please SAVE the information below, it will assist you when it???s time for you to contact us. ??? To MAKE - CHANGE - CANCEL an office appointment If you become ill, need to be seen before your next scheduled appointment, or need to cancel or reschedule an appointment, please call our office at [phone] Sunday through Sunday from 8:30 am to4:30 pm. You can also request a routine appointment through your Dtime account. ??? Prescription Refills Contact your pharmacy to request all refills. The pharmacy will need to fax the request to us at . Please allow a minimum of 48-72 hours for your prescription to be completed. Your pharmacy will notify you when your prescription is ready to be picked up. ??? Medical Emergency / After Hours Contact Information If you have a medical emergency, please call 911 or go to the nearest emergency room. For urgent medical calls, which cannot wait until the office opens, please call the medical exchange at and ask the blanket winder operator to page the ENT physician construction supervisor/carpenter. *Caller ID blocking service will need to be turned off for your call to be returned. We also specialize in Hearing Aids, Allergy testing, swallowing disorders, voice problems, cancer diagnosis, and so much more. Visit our website at [email or web address] for information about our practice and an interactive health encyclopedia. ING MACHINE OPERATOR ULTRASONIC documented in this encounter Progress Notes * Lydia Laws, KEY ACCOUNT REPRESENTATIVE-VP PRODUCT MANAGEMENT - 09/15/2019 10:31 AM CST History of Present Illness: David Rider is a 39 year old male who presents for evaluation of his sinuses. He notes that he has had recurrent sinus infections over the past 4-5 years. States that he is getting at least 4 infections per year. Will get treated with antibiotics for these. Symptoms include nasal congestion, thick colored nasal drainage, postnasal drainage. The antibiotics will help. He states that since the beginning of August he has been treated with 3 rounds of antibiotics (Doxycycline, Augmentin, and just finished a 10 day course of Doxycycline). Also had one round of steroids. He states that he feels better on the antibiotics, but then his symptoms start to return. Uses Claritin and Flonase daily No known allergy history, although he has never been allergy tested. No CT of the sinuses. Past Medical History: Past Medical History: Diagnosis Date ??? Anxiety and depression has a past surgical history that includes [...] (FLONASE ALLERGY RELIEF) 50 MCG/ACT nasal spray Palmer 2 sprays into eachnostril once daily Reasons: Allergic Rhinitis 1 bottles 0 No current facility-administered medications for this visit. Social History Tobacco Use ??? Smoking status: Never Smoker ??? Smokeless tobacco: Never Used Substance Use Topics ??? Alcohol use: Not on file ??? Drug use: Not on file Allergies Patient has no known allergies. Review of Systems: REVIEW OF SYSTEMS: Nose: sinus pain, post nasal drainage Physical Exam: General: WDWN, thin Head and Face: facial movement was normal and symmetrical, nontender External Ears: normal pinnae shape and position Ext. Aud. Canal: Right:patent Left: patent Tympanic Mem: Right: normal appearance and landmarks Left: normal appearance and landmarks Nose: mild left sided deviation with a left sided septal spur Oral Cavity: lips, dentition and gingiva within normal for age Tonsils: normal size, normal appearance Post. Pharynx: normal mucosa Neck: no asymmetry, masses, or scars Thyroid: Normal Respiratory: unlabored breathing Neuro: alert, oriented x3, affect appropriate, no focal neurological deficits, moves all extremities well, no involuntary movements Skin: Skin color, texture, turgor normal. No rashes or lesions Procedure Note Endoscopy Type: Nasal Endoscopy without debridement Anesthesia: Lidocaine 2% and Bradly-Synephrine 1/2% Procedure Details: After topical anesthesia and decongestion, the patient was placed in the sitting position. The zerodegree telescope was passed along the left nasal floor to the nasopharynx. It was then passed into the region of the middlemeatus, middle turbinate, and the sphenoethmoid region. An identical procedure was performed on the right side. The following findings were noted as stated below: Findings: Mild left sided deviation with a spur. No purulence ir polyps noted Condition: Stable. Patient tolerated procedure well. Complications: None I was present for the entirety of the procedure. Assessment and Plan: Chronic Sinusitis: Has had at least 4 infections yearly for the past 4-5 years Has been treated with 3 rounds of antibiotics in the past month. Just finished a course of Doxycycline and Prednisone. On daily Claritin and Flonase. He was educated on how to use nasal saline irrigations Will get a CT scan for further evaluation. ING MACHINE OPERATOR ULTRASONIC * Lanny Galeano - 09/15/2019 9:32 AM CST Review of Systems David Rider reports the following; Nose: sinus pain, post nasal drainage ING MACHINE OPERATOR ULTRASONIC documented in this encounter Procedure Notes * Lydia Laws APRN-CNP - 09/15/2019 10:40 AM CSTAssociated Order(s): PROC SINUS ENDOSCOPY Procedure(s): AK NASAL ENDOSCOPY,DX Pre-Procedure Diagnose(s): Chronic sinusitis, unspecified location Procedure Note Endoscopy Type: Nasal Endoscopy without debridement Anesthesia: Lidocaine 2% and Bradly-Synephrine 1/2% Procedure Details: After topical anesthesia and decongestion, the patient was placed in the sitting position. The zerodegree telescope was passed along the left nasal floor to the nasopharynx. It was then passed into the region of the middlemeatus, middle turbinate, and the sphenoethmoid region. An identical procedure was performed on the right side. The following findings were noted as stated below: Findings: Mild left sided deviation with a spur. No purulence ir polyps noted Condition: Stable. Patient tolerated procedure well. Complications: None I was present for the entirety of the procedure. ING MACHINE OPERATOR ULTRASONIC documented in this encounter Plan of Treatment Not on file documented as of this encounter Procedures Procedure Name Priority Date/Time Associated Diagnosis Comments AK NASAL ENDOSCOPY,DX Routine 09/15/2019 10:40 AM WELDING MACHINE OPERATOR ULTRASONIC Chronic sinusitis, unspecified location documented in this encounter Results * AK NASAL ENDOSCOPY,DX (09/15/2019 10:40 AM WELDING MACHINE OPERATOR ULTRASONIC) Narrative Lydia Laws APRN-CNP - 09/15/2019 10:40 AM WELDING MACHINE OPERATOR ULTRASONIC Lydia Laws APRN-CNP ? 09/15/2019 10:41 AM Procedure Note Endoscopy Type: ??Nasal Endoscopy without debridement Anesthesia: Lidocaine 2% and Bradyl-Synephrine 1/2% Procedure Details: After topical anesthesia and [...] the procedure. Lydia ARAGON PROCEDURE/MINOR SURGICAL ORDERABLES documented in this encounter Visit Diagnoses Diagnosis Chronic sinusitis, unspecified location- Primary documented in this encounter Care Teams Alarm Adjuster Relationship Specialty Start Date End Date Haris Hoffman DO PCP - General 05/23/19 documented as of this encounter
--- OUTSIDE RECORDS SUMMARY | 2024-07-02 06:32 | XMS_ITS | Encounter Summary ---
Author Organization [facility] Address [address] [place] [address]. [place] [id number] [place] [id number] Care Team Providers Care Wrapper Rewinder Name Role Phone Haris Hoffman DO Primary Care Provider + Reason for Visit * Reason Comments CT (SCAN) Encounter Details Date Type Department Care Team (Latest Contact Info) Description 01/09/2024 Scan HEALTH INFO SR[facility]CS Scanned, Doc Med Group CT (SCAN) Social History Tobacco Use Types Packs/Day Years [...] st Contact Info) Description 07/30/2024 8:40 AM NAVAL DESIGNER Office Visit [facility] Medical Group Family & Internal Medicine - [address] [phone] Haris Hoffman DO [address] [place] [address] [phone] documented as of this encounter Procedures Procedure Name Priority Date/Time Associated Diagnosis Comments CT GENERIC 01/09/2024 documented in this encounter Results * CT GENERIC (01/09/2024) Anatomical Region Laterality Modality Other 01/09/2024 us Doc Med Group Scanned SCANNING Final Resu lt documented in this encounter Visit Diagnoses Not on filedocumented in this encounter Care Teams Wrapper Rewinder Relationship Specialty Start Date End Date Haris Hoffman DO [address] [place] [id number] PCP - General FAMILY PRACTICE 05/09/19 documented as of this encounter
--- OUTSIDE RECORDS SUMMARY | 2024-07-02 06:32 | XMS_ITS | Encounter Summary ---
Author Organization [facility] Address [address] [place] [address] Care Team Providers Care Aircraft Loadmaster Superintendent Name Role Phone Unavailable Primary Care Provider Unavailabl e Reason for Visit * Reason Comments Sinusitis Ear Problem Encounter Details Date Type Department Care Team (Late st Contact Info) Description 03/07/2018 9:00 AM CDT Office Visit [facility] [address] [phone] Provider, Earnestine Exp Nameoki Acute ethmoidal sinusitis, recurrence not specified (Primary Dx) Social History Tobacco Use Types Packs/Day Years Used Date Smoking Tobacco: Never Smokeless Tobacco: Never Sex and Gender Information Value Date Recorded Sex Assigned at Not on file Gender Identity Not on file Sexual Orientation Not on file documented as of this encounter Last Filed Vital Signs Vital Sign Reading Time Taken Comments Blood Pressure 126/80 03/07/2018 9:10 AM CDT Pulse - - Temperature 36.4 ??C (97.5 ??F) 03/07/2018 9:10 AM CD T Respiratory Rate 16 03/07/2018 9:10 AM CDT Oxygen Saturation - - Inhaled Oxygen Concentration - - Weight 104.3 kg (230 lb) 03/07/2018 9:10 AM CDT Height 188 cm (6' 2 ) 03/07/2018 9:10 AM CDT Body Mass Index 29.53 03/07/2018 9:10 AM CDT documented in this encounter Patient Instructions * Patient Instructions* Denise Boston, STONE CLEANER-CUSTOMER RESPONSE REPRESENTATIVE - 03/07/2018 9:19 AM CDT Images from the original note were not included. Drink plenty of fluids to help thin secretions. May take Tylenol or Ibuprofen for fever or pain as directed per package instructions May take OTC antihistamines such as Zyrtec, Shannon, or Claritin as directed per package instructions for allergy relief May take Sudafed (must get from behind pharmacy counter), for relief of sinus congestion, as directed per package instructions Recommend use of OTC intranasal saline irrigation daily per package instructions Recommend daily use of Flonase or Nasonex, as directed per package instructions Reviewed education materials and instructions with patient and answered all questions. Follow up with Kevin Epps MD if symptoms worsen or do not completely resolve. GO TO EMERGENCY ROOM OR CALL 911 WITH ANY OF THE FOLLOWING SYMPTOMS: HIGH, PERSISTENT FEVER >102; SWELLING, INFLAMMATION, OR REDNESS AROUND EYES, ABNORMAL EYE MOVEMENTS, VISION CHANGES (DOUBLE VISION OR IMPAIRED VISION); SEVERE HEADACHE; ALTERED MENTAL STATUS. THESE ARE SIGNS OF A RARE, BUT SERIOUS COMPLICATION AND REQUIRES IMMEDIATE EMERGENCY ATTENTION. Sinusitis BRAIDING MACHINE OPERATOR: Sinusitis is inflammation or infection of your sinuses. It is most often caused by a virus. Acute sinusitis may last up to 12 weeks. Chronic sinusitis lasts longer than 12 weeks. Recurrent sinusitis means you have 4 or more times in 1 year. Common symptoms include the following: ?? Fever ?? Pain, pressure, redness, or swelling around the forehead, cheeks, or eyes ?? Thick yellow or green discharge from your nose ?? Tenderness when you touch your face over your sinuses ?? Dry cough that happens mostly at night or when you lie down ?? Headache and face pain that is worse when you lean forward ?? Tooth pain, or pain when you chew Seek care immediately if: ?? Your eye and eyelid are red, swollen, and painful. ?? You cannot open your eye. ?? You have vision changes, such as double vision. ?? Your eyeball bulges out or you cannot move your eye. ?? You are more sleepy than normal, or you notice changes in your ability to think, move, or talk. ?? You have a stiff neck, a fever, or a bad headache. ?? You have swelling of your forehead or scalp. Contact your healthcare provider if: ?? Your symptoms do not improve after 3 days. ?? Your symptoms do not go away after 10 days. ?? You have nausea and are vomiting. ?? Your nose is bleeding. ?? You have questions or concerns about your condition or care. Treatment for sinusitis: Your symptoms may go away on their own. Your healthcare provider may recommend watchful waiting for up to 10 days before starting antibiotics. You may need any of the following: ?? Acetaminophen decreases pain and fever. It is available without a doctor's order. Ask how much to take and how often to take it. Follow directions. Read the labels of all other medicines you are using to see if they also contain acetaminophen, or ask your doctor or pharmacist. Acetaminophen can cause liver damage if not taken correctly. Do not use more than 4 grams (4,000 milligrams) total of acetaminophen in one day. ?? NSAIDs , such as ibuprofen, help decrease swelling, pain, and fever. This medicine is available with or without a doctor's order. NSAIDs can cause stomach bleeding or kidney problems in certain people. If you take blood thinner medicine, always ask your healthcare provider if NSAIDs are safe foryou. Always read the medicine label and follow directions. ?? Nasal steroid sprays may help decrease inflammation in your nose and sinuses. ?? Decongestants help reduce swelling and drain mucus in the nose and sinuses. They may help you breathe easier. ?? Antihistamines help dry mucus in the nose and relieve sneezing. ?? Antibiotics help treat or prevent a bacterial infection. ?? Take your medicine as directed. Contact your healthcare provider if you think your medicine is not helping or if you have side effects. Tell him or her if you are allergic to any medicine. Keep a list of the medicines, vitamins, and herbs you take. Include the amounts, and when and why you take them. Bring the list or the pill bottles to follow-up visits. Carry your medicine list with you in case of an emergency. Self-care: ?? Rinse your sinuses. Use a sinus rinse device to rinse your nasal passages with a saline (salt water) solution or distilled water. Do not use tap water. This will help thin the mucus in your nose and rinse away pollen and dirt. It will also help reduce swelling so you can breathe normally. Ask your healthcare provider how often to do this. ?? Breathe in steam. Heat a bowl of water until you see steam. Lean over the bowl and make a tent over your head with a large towel. Breathe deeply for about 20 minutes. Be careful not to get too close to the steam or burn yourself. Do this 3 times a day. You can also breathe deeply when you take ahot shower. ?? Sleep with your head elevated. Place an extra pillow under your head before you go to sleep to help your sinuses drain. ?? Drink liquids as directed. Ask your healthcare provider how much liquid to drink each day and which liquids are best for you. Liquids will thin the mucus in your nose and help it drain. Avoid drinks that contain alcohol or caffeine. ?? Do not smoke, and avoid secondhand smoke. Nicotine and other chemicals in cigarettes and cigars can make your symptoms worse. Ask your healthcare provider for information if you currently smoke and need help to quit. E-cigarettes or smokeless tobacco still contain nicotine. Talk to your healthcare provider before you use these products. Prevent the spread of germs that cause sinusitis: Wash your hands often with soap and water. Wash your hands after you use the bathroom, change a child's diaper, or sneeze. Wash your hands before youprepare or eat food. Follow up with your healthcare provider as directed: You may be referred to an ear, nose, and throat specialist. Write down your questions so you remember to ask them during your visits. ?? 2017 [employer] Information is for End User's use only and may not be sold, redistributed or otherwise used for commercial purposes. All illustrations and images included in CareNotes?? are the copyrighted property of [employer] or [employer]. The above information is an hat braider only. It is not intended as medical advice for individual conditions or treatments. Talk to your doctor, nurse or pharmacist before following any medical regimen to see if it is safe and effective for you. documented in this encounter Progress Notes * Denise Boston, STONE CLEANER-CUSTOMER RESPONSE REPRESENTATIVE - 03/07/2018 9:09 AM CDT David Rider is a 37 y.o. male who presents to clinic today for Chief Complaint Patient presents with ??? Sinusitis ??? Ear Problem PCP is Kevin Epps MD. David Rider is here for evaluation of congestion, post nasal drip, bilateral ear pressure/pain, sinus pressure, no fever. He states the Onset was: 1 week and course is gradually worsening. He is drinking moderate amounts of fluids.. Past History of no history of pneumonia or bronchitis. He is a non-smoker. Positive for sick contacts. OTC- Ibuprofen and allergy medication with little relief. Past Medical History: Diagnosis Date ??? Anxiety and depression No family history on file. Current Outpatient Prescriptions Medication Sig Dispense Refill ??? amoxicillin-clavulanate (AUGMENTIN) 875-125 MG tablet Take 1 tablet by mouth 2 times daily withmorning and evening meal for 10 days Reasons: Sinus Irritation and Congestion 20 tablet 0 ??? fluticasone propionate (FLONASE ALLERGY RELIEF) 50 MCG/ACT nasal spray Holbrook 2 sprays into eachnostril once daily Reasons: Allergic Rhinitis 1 bottles 0 ??? Cholecalciferol (VITAMIN D PO) ??? CITALOPRAM HYDROBROMIDE PO ??? BuPROPion HCl (WELLBUTRIN PO) No current facility-administered medications for this visit. No Known Allergies Social History Social History ??? Marital status: Social History Main Topics ??? Smoking status: Never Smoker ??? Smokeless tobacco: Never Used Review of Systems Constitutional: Negative for fatigue, fevers. Eyes: Negative Ears, nose, mouth, and throat: Positive for sinus trouble, congestion Respiratory: Negative for shortness of breath Cardiovascular: Negative for chest pain Objective: BP 126/80 Temp 97.5 ??F (36.4 ??C) Resp 16 Ht 1.88 m (6' 2 ) Wt 104.3 kg (230 lb) BMI 29.53 kg/m2 General appearance: alert, cooperative, no distress, oriented to person, place, and time Head: normocephalic, without trauma Eyes: sclera and conjunctiva clear Ears: canals clear, tympanic membranes normal, hearing intact to voice, fluid noted behind each TM,no bulging Nose: mucosa erythematous and swollen, clear rhinorrhea, ethmoidal tenderness bilaterally Throat: no mucous membrane abnormalities Neck: supple Nodes: no cervical adenopathy Lungs: breath sounds normal and symmetric; no rales or wheezes Heart: regular rhythm, normal S1 and S2, without murmurs, gallops or rubs Assessment: Encounter Diagnosis Name Primary? Acute ethmoidal sinusitis, recurrence not specified Yes Plan: Drink plenty of fluids to help thin secretions. May take Tylenol or Ibuprofen for fever or pain as directed per package instructions May take OTC antihistamines such as Zyrtec, Shannon, or Claritin as directed per package instructions for allergy relief May take Sudafed (must get from behind pharmacy counter), for relief of sinus congestion, as directed per package instructions Recommend use of OTC intranasal saline irrigation four times daily as needed, followed by daily useof Flonase or Nasonex as directed per package instuctions Reviewed education materials and instructions with patient and answered all questions. David Rider verbalized understanding and agrees with plan. Follow up with Kevin Epps MD if symptoms worsen or do not completely resolve. GO TO EMERGENCY ROOM OR CALL 911 WITH ANY OF THE FOLLOWING SYMPTOMS: HIGH, PERSISTENT FEVER >102; SWELLING, INFLAMMATION, OR REDNESS AROUND EYES, ABNORMAL EYE MOVEMENTS, VISION CHANGES (DOUBLE VISION OR IMPAIRED VISION); SEVERE HEADACHE; ALTERED MENTAL STATUS. THESE ARE SIGNS OF A RARE, BUT SERIOUS COMPLICATION AND REQUIRES IMMEDIATE EMERGENCY ATTENTION. Orders Placed This Encounter ??? amoxicillin-clavulanate (AUGMENTIN) 875-125 MG tablet Sig: Take 1 tablet by mouth 2 times daily with morning and evening meal for 10 days Reasons: Sinus Irritation and Congestion Dispense: 20 tablet Refill: 0 ??? fluticasone propionate (FLONASE ALLERGY RELIEF) 50 MCG/ACT nasal spray Sig: [place] 2 sprays into each nostril once daily Reasons: Allergic Rhinitis Dispense: 1 bottles Refill: 0 Denise Boston APRN, CAKE MAKER-BC 03/07/2018 9:23 AM documented in this encounter Plan of Treatment Not on file documented as of this encounter Visit Diagnoses Diagnosis Acute ethmoidal sinusitis, recurrence not specified- Primary documented in this encounter
--- OUTSIDE RECORDS SUMMARY | 2024-07-02 06:32 | XMS_ITS | Encounter Summary ---
Author Organization [facility] Address [address] [place] [address]. [address] [address] Care Team Providers Care Pre Sales Network Engineer Name Role Phone Haris Hoffman DO Primary Care Provider + Encounter Details Date Type Department Care Team (Late st Contact Info) Description 11/21/2021 8:00 AM CDT Laboratory Only [facility] Family & Internal Medicine [address] [place] [address] Haris Hoffman DO [address] [place] [address] Social History Tobacco Use Types Packs/Day Years [...] Recorded In the last 10 days, have yo u been in contact with someone who was confirmed or suspected to have Coronavirus/COVID-19? No / Unsure 11/21/2021 7:50 AM CDT documented as of this encounter Plan of Treatment Upcoming Encounters Date Type Department Care Team (Late st Contact Info) Description 07/30/2024 8:40 AM GLASS MOULD CLEANER Office Visit [facility] Family & Internal Medicine [facility] [address] [place] [address] Haris Hoffman, [address] [place] [address] documented as of this encounter Procedures Procedure Name Priority Date/Time Associated Diagnosis Comments VENIPUNC ARM DRAW Routine 11/21/2021 7:5 6 AM CDT Need for hepatitis C screening test Screening for endocrine, metabolic and immunity disorder Annual physical exam Screening for lipid disorders TSH W/REFLEX Routine 11/21/2021 7:56 AM CDT Screening for endocrine, metabolic and immunity disorder Annual physical exam VITAMIN B-12 Routine 11/21/2021 7:56 AM CDT Screening for endocrine, metabolic and immunity disorder Annual physical exam COMPREHENSIVE METABOLIC PANEL Routine 11/21/2021 7:56 AM CDT Screening for endocrine, metabolic and immunity disorder Annual physical exam LIPID PANEL Routine 11/21/2021 7:56 AM CDT Screening for lipid disorders Annual physical exam HEPATITIS C ANTIBODY Routine 11/21/2021 7:56 AM CDT Need for hepatitis C screening test CBC W/DIFF AUTOMATED Routine 11/21/2021 7:56 AM CDT Screening for endocrine, metabolic and immunity disorder Annual physical exam documented in this encounter Results * (ABNORMAL) CBC W/DIFF AUTOMATED (11/21/2021 7:56 AM CDT) WBC 7.4 4.0 - 10.8 x10'3/uL 11/21/2021 2:57 PM CDT -[facility] RBC 5.29 4.50 - 6.10 x10'6/uL 11/21/2021 2:57 PM CDT MG-[facility] HGB 16.9 13.0 - 18.0 G/DL 11/21/2021 2:57 PM CDT [facility] HCT 48.9 37.0 - 52.0 % 11/21/2021 2:57 PM CDT [facility] MCV 92.4 78.0 - 100.0 FL 11/21/2021 2:57 PM CDT [facility] MCH 31.9(H) 27.0 - 31.0 PG 11/21/2021 2:57 PM CDT [facility] MCHC 34.6 33.0 - 36.0 G/DL 11/21/2021 2:57 PM CDT [facility] RDW 11.8 11.5 - 14.5 % 11/21/2021 2:57 PM CDT [facility] PLT 324 150 - 350 x10'3/uL 11/21/2021 2:57 PM CDT [facility] MPV 9.2 7.4 - 10.4 FL 11/21/2021 2:57 PM CDT [facility] DIFFERENTIAL TYPE AUTOMATED DIFFERENTIAL 11/21/2021 2:57 PM CDT [facility] NEUTROPHILS % 61.9 % 11/21/2021 2:57 PM CDT [facility] LYMPHOCYTES % 29.3 % 11/21/2021 2:57 PM CDT [facility] MONOCYTES % 7.1 % 11/21/2021 2:57 PM CDT [facility] EOSINOPHILS % 1.1 % 11/21/2021 2:57 PM CDT [facility] BASOPHILS % 0.3 % 11/21/2021 2:57 PM CDT [facility] IMMATURE GRANS % 0.3 % 11/21/2021 2:57 PM CDT -[facility] ABS. NEUTROPHILS 4.60 1.60 - 8.30 x10'3/uL 11/21/2021 2:57 PM CDT -[facility] ABS. LYMPHOCYTES 2.18 0.80 - 4.70 x10'3/uL 11/21/2021 2:57 PM CDT -[facility] ABS. MONOCYTES 0.53 0.00 - 1.50 x10'3/uL 11/21/2021 2:57 PM CDT MG[facility] ABS. EOSINOPHILS 0.08 0.00 - 0.40 x10'3/uL 11/21/2021 2:57 PM CDT -[facility] ABS. BASOPHILS 0.02 0.00 - 0.20 x10'3/uL 11/21/2021 2:57 PM CDT [facility] ABS. IMMATURE GRANULOCYTES 0.02 0.00 - 0.03 x10'3/uL 11/21/2021 2:57 PM CDT -[facility] 11/21/2021 7:56 AM CDT us Haris Hoffman DO LABORATORY Final Re sult [facility] [address] [place] [address], * (ABNORMAL) COMPREHENSIVE METABOLIC PANEL (11/21/2021 7:56 AM CDT) Pathologist [facility] SODIUM S/P/B 142 136 - 145 MMOL/L 11/21/2021 6:16 PM CDT [facility] POTASSIUM S/P/B 4.2 3.5 - 5.1 MMOL/L 11/21/2021 6:16 PM CDT [facility] CHLORIDE S/P/B 104 98 - 107 MMOL/L 11/21/2021 6:16 PM CDT [facility] CO2 27.1 21 - 32 MMOL/L 11/21/2021 6:16 PM T [facility] GLUCOSE 110(H) 70 - 99 MG/DL 11/21/2021 6:16 PM T [facility] BUN 14 6 - 24 MG/DL 11/21/2021 6:16 PM T [facility] CREATININE S/P/B 0.96 0.70 - 1.30 MG/DL 11/21/2021 6:16 PM T [facility] CALCIUM S/P/B 8.8 8.4 - 10.5 MG/DL 11/21/2021 6:16 PM T [facility] BILIRUBIN TOTAL S/P/B 1.3(H) 0.2 - 1.0 MG/DL 11/21/2021 6:16 PM T [facility] ALKALINE PHOSPHATASE S/P/B 68 45 - 115 U/L 11/21/2021 6:16 PM T [facility] AST 41(H) 15 - 37 U/L 11/21/2021 6:16 PM CDT [facility] ALT 108(H) 16 - 63 U/L 11/21/2021 6:16 PM T [facility] TOTAL PROTEIN S/P/B 7.1 6.4 - 8.2 G/DL 11/21/2021 6:16 PM T [facility] ALBUMIN S/P/B 4.0 3.4 - 5.0 G/DL 11/21/2021 6:16 PM T [facility] ANION GAP 10.9 5 - 15 MMOL/L 11/21/2021 6:16 PM T [facility] Comment:REFERENCE RANGE NOT ESTABLISHED OSMOLALITY (CALC) 295 MOSM/KG 022 6:16 PM T [facility] Comment:REFERENCE RANGE NOT ESTABLISHED GFR ESTIMATE >90 >90 ML/MIN/1. 73 M2 11/21/2021 6:16 PM CDT [facility] GFR NOTES GFR REFERENCE S: 11/21/2021 6:16 PM CDT [facility] Comment: THE ESTIMATED GFR IS [...] Haris Hoffman DO LABORATORY Final Re sult [address] [address], * TSH W/REFLEX (11/21/2021 7:56 AM CDT) TSH 1.744 0.358 - 3.740 uIU/ML 11/21/2021 6:16 PM CDT [facility] 11/21/2021 7:56 AM CDT Haris Hoffman DO LABORATORY Final Re sult [address] [address], [place] [phone] * (ABNORMAL) LIPID PANEL (11/21/2021 7:56 AM CDT) CHOLESTEROL 194 <200 MG/DL 11/21/2021 6:16 PM CDT [facility] TRIGLYCERIDES 145 <150 MG/DL 11/21/2021 6:16 PM CDT [facility] HDL 47 >40 MG/DL 11/21/2021 6:16 PM CDT [facility] LDL-C 118(H) <100 MG/DL 11/21/2021 6:16 PM CDT [facility] VLDL CALCULATION 29(H) 5 - 28 MG/DL 11/21/2021 6:16 PM CDT [facility] CHOL/HDL RATIO 4.1(H) 0.0 - 4.0 11/21/2021 6:16 PM CDT [facility] LDL/HDL 2.5(H) 0.41 - 2.13 11/21/2021 6:16 PM CDT [facility] NON HDL CHOLESTEROL 147(H) <140 MG/DL 11/21/2021 6:16 PM CDT [facility] 11/21/2021 7:56 AM CDT Haris Hoffman DO LABORATORY Final Re sult Performing Organization Address City/[facility]/ZIP Co de Phone Number [facility] [address] [place] [address], [place] [phone] * VITAMIN B-12 (11/21/2021 7:56 AM CDT) VITAMIN B12 S/P/B 413 193 - 986 PG/ML 11/21/2021 6:16 PM CDT [facility] 11/21/2021 7:56 AM CDT Haris Hoffman DO LABORATORY Final Re sult [facility] [address] [place] [address], [place] [phone] * HEPATITIS C ANTIBODY (11/21/2021 7:56 AM CDT) HEPATITIS C AB NON-REACTI VE NON-REACT [place] 11/21/2021 6:32 PM CDT [facility] Comment: ANTIBODIES TO HCV NOT DETECTED. DOES NOT EXCLUDE THE POSSIBILITY OF EXPOSURE TO HCV. 11/21/2021 7:56 AM CDT Haris Hoffman DO LABORATORY Final Re sult [facility] [address] [place] [address], [place] [phone] documented in this encounter Visit Diagnoses Diagnosis Need for hepatitis C screening test Special screening examination for other specified viral diseases Screening for endocrine, metabolic and immunity disorder Annual physical exam Routine general medical examination at a health care facility Screening for lipid disorders documented in this encounter Care Teams Pre Sales Network Engineer Relationship Specialty Start Date End Date Haris Hoffman DO [address] [place] [address] PCP - General FAMILY PRACTICE 05/09/19 documented as of this encounter
--- OUTSIDE RECORDS SUMMARY | 2024-07-02 06:32 | XMS_ITS | Encounter Summary ---
Author Organization [facility] Address [address] [place] [address] Care Team Providers Care Sample Room Supervisor Name Role Phone Haris Hoffman DO Primary Care Provider + Reason for Visit * Reason Onset Date Comments Refill Request 09/26/2019 Encounter Details Date Type Department Care Team (Late st Contact Info) Description 09/26/2019 Telephone [facility] [address] [facility] [address] [place] [address] Clare Howard, RN Refill Request Social History Tobacco Use Types Packs/Day Years Used Date Smoking Tobacco: Never Smokeless Tobacco: Never Sex and Gender Information Value Date Recorded Sex Assigned at Not on file Gender Identity Not on file Sexual Orientation Not on file documented as of this encounter Miscellaneous Notes * Telephone Encounter - Clare Howard RN - 09/26/2019 2:20 PM CDT Returned call to who states pt has a sinus infection. C/o swollen sinuses and fatigue. He hashad the same infection since July Was seen by Dr. Lebron earlier in the week, discussed surgery but wants to wait at this time. States they were told that he could call if he needed antibiotics. Case discussed with Dr. Leborn who prescribes a course of Augmentin. Prescription sent to pt preferred pharmacy. documented in this encounter Plan of Treatment Not on file documented as of this encounter Visit Diagnoses Not on filedocumented in this encounter Care Teams Sample Room Supervisor Relationship Specialty Start Date End Date Haris Hoffman DO PCP - General 05/23/19 documented as of this encounter
--- OUTSIDE RECORDS SUMMARY | 2024-07-02 06:32 | XMS_ITS | Clinical Summary ---
Author Organization [facility] Address [address] [place] [address]. [place], [place] [address] [place] [address] Care Team Providers Care Physical Fitness Trainer Name Role Phone Sangkenishajesus alberto Haris Vicente HIDALGO Primary Care Provider + Allergies No known active allergies Medications Cholecalciferol (VITAMIN D-3 OR) Take 3,000 Units by mouth daily. Active ADDERALL XR 20 MG 24 hr capsule Take 1 capsule by mouth daily. 11/11/2021 Active buPROPion XL 150 MG 24 hr tablet Take 1 tablet (150 mg total) by mouth daily. 11/10/2021 Active venlafaxine XR 75 MG 24 hr capsule TAKE 1 CAPSULE BY MOUTH EVERY DAY WITH FOOD FOR 30 DAYS 11/01/2021 Active eszopiclone (LUNESTA) 1 MG tablet Take 1 tablet (1 mg total) by mouth nightly at bedtime. at bedtime. Active QUEtiapine (SEROQUEL) 50 MG tablet Take 0.5-1 tablets (25-50 mg total) by mouth nightly at bedtime. 12/03/2022 Active lithium CR (LITHOBID) 450 MG tablet Take 4 tablets (1,800 mg total) by mouth nightly at bedtime. 09/27/2023 Active propranolol LA (INDERAL LA) 60 MG 24 hr capsule 1 capsule (60 mg total). 09/27/2023 Active lurasidone (LATUDA) 40 MG Tab tablet Take 1 tablet (40 mg total) by mouth nightly at bedtime. 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 05/09/2019 BMI 30.0-30.9,adult 05/09/2019 Gastroesophageal reflux disease with esophagitis 05/09/2019 Recurrent sinus infections 05/09/2019 Immunizations Name Administration Dates Next Due Fluzone 6 Months+ Quad (0.5 mL Prefilled Syringe ) 10/03/2023 Tdap (Generic) 09/02/2020 Family History Medical History Relation Comments Diabetes Brother Diabetes Mother Heart Disease Mother Relation Status Comments Brother Mother Social History Tobacco Use Types Packs/Day Years Used Date Smoking Tobacco: Never Smokeless Tobacco: Never Tobacco Cessation:Counseling Given: No Alcohol Use Standard Drinks/Week Comments Yes 0 [...] file Not on file Not on file Last Filed Vital Signs Vital Sign Reading Time Taken Comments Blood Pressure 128/90 12/19/2023 1:38 PM CDT Pulse 88 12/19/2023 1:38 PM CDT Temperature 37.2 ??C (99 ??F) 12/19/2023 1:38 PM CDT Respiratory Rate 20 12/19/2023 1:38 PM CDT Oxygen Saturation 98% 12/19/2023 1:38 PM CDT Inhaled Oxygen Concentration - - Weight 120.1 kg (264 lb 12.8 oz) 12/19/2023 1:38 PM CDT Height 188 cm (6' 2 ) 12/19/2023 1:38 PM CDT Body Mass Index 34 12/19/2023 1:38 PM CDT Plan of Treatment Upcoming Encounters Date Type Department Care Team (Late st Contact Info) Description 07/30/2024 8:40 AM STOCK DRIVER Office Visit [facility] Family & Internal Medicine - [address] [phone] Haris Hoffman, [address] [place] [address] Health Maintenance Due Date Last Done Comments Hepatitis B Vaccines (1 of 3 - 19+ 3-dose series) 1997 Annual Physical 05/09/2020 05/09/2019 COVID-19 Vaccine ( - 2023-2 5 season) 2024 07/30/2021, 10/31/2020, 10/10/2020 Influenza Adult (#1) 2024 10/03/2023 Colorectal Cancer Screening Colonoscopy (10 Years) 10/18/2028 10/18/2018 DTaP, Tdap and Td Vaccines ( 2 - Td or Tdap) 09/02/2030 09/02/2020 Hepatitis C Completed 11/21/2021 HPV Vaccines Aged Out No longer eligi ble based on patient's age to complete this topic Meningococcal Vaccine Aged Out No yvette maciel eligible based on patient's age to complete this topic Pneumococcal Vaccine: Pediatrics (0 to 5 Years) and At-Risk Patients (6 to 64 Years) Aged Out No longer eligible b ased on patient's age to complete this topic RSV Immunizations Under 20 Months Aged Out No longer eligible b ased on patient's age to complete this topic Procedures Procedure Name Priority Date/Time Associated Diagnosis Comments HEPATITIS C ANTIBODY Routine 11/21/2021 7:56 AM CDT Need for hepatitis C screening test COLONOSCOPY GENERIC (SCAN ORDER) 10/18/2018 from Last 3 Months or Most Recently Relevant to Health Maintenance Results * HEPATITIS C ANTIBODY (11/21/2021 7:56 AM CDT) HEPATITIS C AB NON-REACTI VE NON-REACT [place] 11/21/2021 6:32 PM CDT [facility] Comment: ANTIBODIES TO HCV NOT DETECTED. DOES NOT EXCLUDE THE POSSIBILITY OF EXPOSURE TO HCV. 11/21/2021 7:56 AM CDT us Haris Hoffman DO LABORATORY Final Re sult [facility] [address] [place] [address], [place] [phone] * COLONOSCOPY GENERIC (SCAN ORDER) (10/18/2018) 10/18/2018 us Doc [facility] Scanned SCANNING Final Resu lt from Last 3 Months or Most Recently Relevant to Health Maintenance Insurance [facility] Care Teams Physical Fitness Trainer Relationship Specialty Start Date End Date Haris Hoffman DO [address] [place] [id number] PCP - General FAMILY PRACTICE 05/09/19
--- OUTSIDE RECORDS SUMMARY | 2024-07-02 06:32 | XMS_ITS | Encounter Summary ---
Author Organization [facility] Address [address] [facility] [place] [address] Care Team Providers Care Sport Shoe Spike Assembler Name Role Phone Haris Hoffman DO Primary Care Provider + Reason for Visit * Reason Onset Date Comments Future Appointment 08/22/2019 Sinus appt Encounter Details Date Type Department Care Team (Late st Contact Info) Description 08/22/2019 Telephone [facility] [address] [address] Cabrera Hancock MD [address] [place] [address] Future Appointment (Sinus appt) Social History Tobacco Use Types Packs/Day Years Used Date Smoking Tobacco: Never Smokeless Tobacco: Never Sex and Gender Information Value Date Recorded Sex Assigned at Not on file Gender Identity Not on file Sexual Orientation Not on file documented as of this encounter Miscellaneous Notes * Telephone Encounter - Paola Gonzalez - 08/22/2019 2:45 PM CST Called patient to schedule an appt for sinus infections. Left a voicemail for the patient to call back to schedule. TH SERVICES INFORMATION SPECIALIST documented in this encounter Plan of Treatment Not on file documented as of this encounter Visit Diagnoses Not on filedocumented in this encounter Care Teams Sport Shoe Spike Assembler Relationship Specialty Start Date End Date Haris Hoffman DO PCP - General 05/23/19 documented as of this encounter
--- OUTSIDE RECORDS SUMMARY | 2024-07-02 06:32 | XMS_ITS | Encounter Summary ---
Author Organization [facility] Address [address] [place] [address]. [place], [place] [phone] [place] [address] Care Team Providers Care Wood Filler Name Role Phone Haris Hoffman DO Primary Care Provider + Encounter Details Date Type Department Care Team (Latest Contact Info) Description 09/22/2019 Scan HEALTH INFO [facility] Scanned, Documents Social History Tobacco Use Types Packs/Day Years [...] 04/16 PHQ-2 Answer Date Recorded PHQ-2 Score 0 06/22/2019 Sex and Gender Information Value Date Recorded [...] st Contact Info) Description 07/30/2024 8:40 AM SUPERVISOR FABRICATION Office Visit [facility] Family & Internal Medicine [address] [phone] Haris Hoffman DO [address] [place] [address] documented as of this encounter Visit Diagnoses Not on filedocumented in this encounter Care Teams Wood Filler Relationship Specialty Start Date End Date Haris Hoffman DO [address] [place] [address] PCP - General FAMILY PRACTICE 05/09/19 documented as of this encounter
--- OUTSIDE RECORDS SUMMARY | 2024-07-02 06:32 | XMS_ITS | Encounter Summary ---
Author Organization [facility] Address [address] [place] [address]. [place], [place] [phone] [place] [address] Care Team Providers Care Online Merchandising Manager Name Role Phone Haris Hoffman DO Primary Care Provider + Encounter Details Date Type Department Care Team (Latest Contact Info) Description 12/19/2023 Travel Social History Tobacco Use Types Packs/Day [...] st Contact Info) Description 07/30/2024 8:40 AM LOSS PREVENTION AUDITOR Office Visit [facility] Family & Internal Medicine - [address] [phone] Haris Hoffman DO [address] [place] [address] documented as of this encounter Visit Diagnoses Not on filedocumented in this encounter Care Teams Online Merchandising Manager Relationship Specialty Start Date End Date Haris Hoffman DO [address] [place] [address] PCP - General FAMILY PRACTICE 05/09/19 documented as of this encounter
--- OUTSIDE RECORDS SUMMARY | 2024-07-02 06:32 | XMS_ITS | Encounter Summary ---
Author Organization [facility] Address [address] [place] [place] [address] Care Team Providers Care Information Systems Professor Name Role Phone Haris Hoffman Primary Care Provider + Reason for Visit * Reason Comments Sinusitis Encounter Details Date Type Department Care Team (Latest Contact Info) Description 09/04/2019 9:00 AM CORPORATE AFFAIRS MANAGER Office Visit [facility] AT [address] [phone] [facility] Acute rhinosinusitis (Primary Dx) Social History Tobacco Use Types Packs/Day Years Used Date Smoking Tobacco: Never Smokeless Tobacco: Never Sex and Gender Information Value Date Recorded Sex Assigned at Not on file Gender Identity Not on file Sexual Orientation Not on file documented as of this encounter Last Filed Vital Signs Vital Sign Reading Time Taken Comments Blood Pressure 132/84 09/04/2019 9:03 AM CORPORATE AFFAIRS MANAGER Pulse 87 09/04/2019 9:03 AM CORPORATE AFFAIRS MANAGER Temperature 36.8 ??C (98.3 ??F) 09/04/2019 9:03 AM CS T Respiratory Rate 16 09/04/2019 9:03 AM CORPORATE AFFAIRS MANAGER Oxygen Saturation 98% 09/04/2019 9:03 AM CORPORATE AFFAIRS MANAGER Inhaled Oxygen Concentration - - Weight 111.1 kg (245 lb) 09/04/2019 9:03 AM CORPORATE AFFAIRS MANAGER Height 188 cm (6' 2 ) 09/04/2019 9:03 AM CORPORATE AFFAIRS MANAGER Body Mass Index 31.46 09/04/2019 9:03 AM CORPORATE AFFAIRS MANAGER documented in this encounter Patient Instructions * Patient Instructions* Mary Castellanos, COMMUNITY ORGANIZER-RADIO TOWER TECHNICIAN - 09/04/2019 9:09 AM CORPORATE AFFAIRS MANAGER Images from the original note were not included. Drink plenty of fluids to help thin secretions. May take Tylenol or Ibuprofen for fever or pain as directed per package instructions Recommend daily use of OTC intranasal saline irrigation per package instructions May take OTC antihistamines such as Zyrtec, Shannon, or Claritin as directed per package instructions, for runny nose or allergy symptoms Use an alternate method of control while taking antibiotic and one week after, if applicable. Follow up with Haris Hoffman, DO if symptoms worsen or do not completely resolve. GO TO EMERGENCY ROOM OR CALL 911 WITH ANY OF THE FOLLOWING SYMPTOMS: HIGH, PERSISTENT FEVER >102; SWELLING, INFLAMMATION, OR REDNESS AROUND EYES, ABNORMAL EYE MOVEMENTS, VISION CHANGES (DOUBLE VISION OR IMPAIRED VISION); SEVERE HEADACHE; ALTERED MENTAL STATUS. THESE ARE SIGNS OF A RARE, BUT SERIOUS COMPLICATION AND REQUIRES IMMEDIATE EMERGENCY ATTENTION. Patient Education Sinusitis MAIL MANAGER: Sinusitis is inflammation or infection of your [...] to ask them during your visits. ?? Copyright [employer] 2019 Information is for End User's use only and may not be sold, redistributed or otherwise used for commercial purposes. All illustrations and images included in CareNotes?? are the copyrighted property of [employer] or [employer] The above information is an clerical aide only. It is not intended as medical advice for individual conditions or treatments. Talk to your doctor, nurse or pharmacist before following any medical regimen to see if it is safe and effective for you. ORATE AFFAIRS MANAGER documented in this encounter Progress Notes * Mary Castellanos APRN-CNP - 09/04/2019 9:08 AM CST Subjective: David Rider is a 38 year old male who presents to clinic today for Chief Complaint Patient presents with ??? Sinusitis . David Rider is here for evaluation of congestion, sinus pressure, achiness, hand/face or pedal edema. his PCP is Haris Hoffman DO. He states the Onset was: 2-3 months, and symptoms wax and wane. He is drinking plenty of fluids.. Past History of no history of pneumonia or bronchitis. He is a non-smoker. The pain is described as aching and pressure, and is 5/10 in intensity. Patient was previously prescribed Augmentin and Doxycycline, which worked for a short course. Patient states he is going to see a specialist, ENT, on 09-15-2019, but would like to be taken care of now as well. Patient has taken daily Claritin with no resolve. Sick Contacts: No known sick contacts. Past Medical History: Diagnosis Date ??? Anxiety and depression No family history on file. Current Outpatient Medications Medication Sig Dispense Refill ??? benzonatate (TESSALON) 100 MG capsule Take 1 capsule by mouth 3 times daily as needed for Cough30 capsule 0 ??? BuPROPion HCl (WELLBUTRIN PO) ??? Cholecalciferol (VITAMIN D PO) ??? CITALOPRAM HYDROBROMIDE PO ??? doxycycline hyclate (VIBRAMYCIN) 100 MG tablet Take 1 tablet by mouth 2 times daily for 10 days20 tablet 0 ??? fluticasone propionate (FLONASE ALLERGY RELIEF) 50 MCG/ACT nasal spray Morton 2 sprays into eachnostril once daily Reasons: Allergic Rhinitis 1 bottles 0 ??? methylPREDNISolone (MEDROL DOSEPAK) 4 MG tablet Take by mouth as directed 1 Each 0 No current facility-administered medications for this visit. No Known Allergies Social History Socioeconomic History ??? Marital status: Unknown Spouse name: Not on file ??? Number of children: Not on file ??? Years of education: Not on file ??? Highest education level: Not on file Occupational History ??? Not on file Social Needs ??? Financial resource strain: Not on file ??? Food insecurity Worry: Not on file Inability: Not on file ??? Transportation needs Medical: Not on file Non-medical: Not on file Tobacco Use ??? Smoking status: Never Smoker ??? Smokeless tobacco: Never Used Substance and Sexual Activity ??? Alcohol use: Not on file ??? Drug use: Not on file ??? Sexual activity: Not on file Lifestyle ??? Physical activity Days per week: Not on file Minutes per session: Not on file ??? Stress: Not on file Relationships ??? Social connections Talks on phone: Not on file Gets together: Not on file Attends sabianism service: Not on file Active member of club or organization: Not on file Attends meetings of clubs or organizations: Not on file Relationship status: Not on file ??? Intimate partner violence Fear of current or ex partner: Not on file Emotionally abused: Not on file Physically abused: Not on file Forced sexual activity: Not on file Other Topics Concern ??? Not on file Social History Narrative ??? Not on file Review of Systems Constitutional: Positive for malaise, Negative for fatigue, fevers, chills, sweats. Eyes: Negative Ears, nose, mouth, and throat: Positive for sinus trouble, congestion Respiratory: Negative Cardiovascular: Negative Hematologic/lymphatic: Negative for fever, night sweats, chills Objective: BP 132/84 Pulse 87 Temp 98.3 ??F (36.8 ??C) Resp 16 Ht 1.88 m (6' 2 ) Wt 111.1 kg (245 lb) SpO2 98%BMI 31.46 kg/m2 General appearance: alert, cooperative, no distress, oriented to person, place, and time Head: normocephalic, without trauma Eyes: sclera and conjunctiva clear, EOMI and PERRLA, lids normal Ears: Right tympanic membrane - erythematous. Left tympanic membrane - scarring noted Nose: maxillary tenderness bilaterally, frontal tenderness bilaterally Throat: no mucous membrane abnormalities Neck: supple Nodes: no parotid, cervical, pre-auricular or post-auricular adenopathy Lungs: breath sounds normal and symmetric; no rales or wheezes Heart: regular rhythm, normal S1 and S2, without murmurs, gallops or rubs Assessment: Encounter Diagnosis Name Primary? Acute rhinosinusitis Yes Plan: Drink plenty of fluids to help thin secretions. May take Tylenol or Ibuprofen for fever or pain as directed per package instructions Recommend daily use of OTC intranasal saline irrigation per package instructions May take OTC antihistamines such as Zyrtec, Shannon, or Claritin as directed per package instructions, for runny nose or allergy symptoms Use an alternate method of control while taking antibiotic and one week after, if applicable. Reviewed education materials and instructions with patient and answered all questions. David Rider verbalized understanding and agrees with plan. Follow up with Haris Hoffman DO if symptoms worsen or do not completely [...] EMERGENCY ATTENTION. Orders Placed This Encounter ??? doxycycline hyclate (VIBRAMYCIN) 100 MG tablet Sig: Take 1 tablet by mouth 2 times daily for 10 days Dispense: 20 tablet Refill: 0 May interchange for whichever salt form is preferred. ??? methylPREDNISolone (MEDROL DOSEPAK) 4 MG tablet Sig: Take by mouth as directed Dispense: 1 Each Refill: 0 DINORA De León 09/04/2019 9:15 AM ORATE AFFAIRS MANAGER documented in this encounter Plan of Treatment Not on file documented as of this encounter Visit Diagnoses Diagnosis Acute rhinosinusitis- Primary Acute sinusitis, unspecified documented in this encounter Care Teams Information Systems Professor Relationship Specialty Start Date End Date Haris Hoffman DO PCP - General 05/23/19 documented as of this encounter
--- OUTSIDE RECORDS SUMMARY | 2024-07-02 06:32 | XMS_ITS | Encounter Summary ---
Author Organization [facility] Address [address] [facility] [place] [address] Care Team Providers Care Hat Block Bench Hand Name Role Phone Haris Hoffman DO Primary Care Provider + Reason for Visit * Reason Onset Date Comments Follow-up 09/06/2019 Encounter Details Date Type Department Care Team (Late st Contact Info) Description 09/06/2019 Telephone [facility] AT [address] [phone] Patricia Cheng APRN-CNP [address] [place] [address] Follow-up Social History Tobacco Use Types Packs/Day Years Used Date Smoking Tobacco: Never Smokeless Tobacco: Never Sex and Gender Information Value Date Recorded Sex Assigned at Not on file Gender Identity Not on file Sexual Orientation Not on file documented as of this encounter Miscellaneous Notes * Telephone Encounter - Patricia Cheng APRN-CNP - 09/06/2019 1:53 PM POWERHOUSE MECHANIC HELPER Courtesy follow-up phone call made to patient. Message left advising patient to call service [facility] [phone] if they have any questions or concerns. Patricia Cheng DNP, CHIEF DEPUTY CORONER-BC RHOUSE MECHANIC HELPER documented in this encounter Plan of Treatment Not on file documented as of this encounter Visit Diagnoses Not on filedocumented in this encounter Care Teams Hat Block Bench Hand Relationship Specialty Start Date End Date Haris Hoffman DO PCP - General 05/23/19 documented as of this encounter
--- OUTSIDE RECORDS SUMMARY | 2024-07-02 06:32 | XMS_ITS | Encounter Summary ---
Author Organization [facility] Address [address] [place] [address]. [place], [place] [address] [place] [address] Care Team Providers Care Retoucher Photoengraving Name Role Phone Haris Hoffman DO Primary Care Provider + Encounter Details Date Type Department Care Team (Late st Contact Info) Description 11/24/2021 Orders Only [facility] Family & Internal Medicine [facility] [address] [place] [address] Haris Hoffman DO [address] [place] [address] Social History Tobacco Use Types [...] st Contact Info) Description 07/30/2024 8:40 AM DRAWER FITTER Office Visit [facility] Family & Internal Medicine - [place] [address] [place] [address] Haris Hoffman DO [address] [place] [address] documented as of this encounter Procedures Procedure Name Priority Date/Time Associated Diagnosis Comments HEMOGLOBIN, GLYCOSYLATED Routine 11/24/2021 2:57 PM CDT Elevated glucose documented in this encounter Results * (ABNORMAL) HEMOGLOBIN, GLYCOSYLATED (11/24/2021 2:57 PM CDT) HGB A1C 5.4 3.80 - 5.60 % 11/24/2021 5:22 PM CDT [facility] ESTIMATED AVG GLUCOSE 108(H) 74 - 106 MG/DL 11/24/2021 5:22 PM CDT [facility] 11/24/2021 2:57 PM CDT Haris Hoffman DO LABORATORY Final Re sult [facility] [address] [place] [address], [place] [phone] documented in this encounter Visit Diagnoses Diagnosis Elevated glucose Other abnormal glucose documented in this encounter Care Teams Retoucher Photoengraving Relationship Specialty Start Date End Date Haris Hoffman DO [address] [place] [address] PCP - General FAMILY PRACTICE 05/09/19 documented as of this encounter
--- OUTSIDE RECORDS SUMMARY | 2024-07-02 06:32 | XMS_ITS | Encounter Summary ---
Author Organization [facility] Address [address] [place] [address] Care Team Providers Care Aircraft Structural Repair Mechanic Name Role Phone Unavailable Primary Care Provider Unavailabl e Reason for Visit * Reason Comments Sinusitis Encounter Details Date Type Department Care Team (Late st Contact Info) Description 04/29/2019 10:00 AM CDT Office Visit [facility] AT [address] [phone] Provider, Earnestine Exp Nameoki Acute non-recurrent maxillary sinusitis (Primary Dx) Social History Tobacco Use Types Packs/Day Years Used Date Smoking Tobacco: Never Smokeless Tobacco: Never Sex and Gender Information Value Date Recorded Sex Assigned at Not on file Gender Identity Not on file Sexual Orientation Not on file documented as of this encounter Last Filed Vital Signs Vital Sign Reading Time Taken Comments Blood Pressure 122/82 04/29/2019 9:54 AM CDT Pulse 100 04/29/2019 9:54 AM CDT Temperature 37.3 ??C (99.2 ??F) 04/29/2019 9:54 AM CD T Respiratory Rate 16 04/29/2019 9:54 AM CDT Oxygen Saturation 98% 04/29/2019 9:54 AM CDT Inhaled Oxygen Concentration - - Weight 106.6 kg (235 lb) 04/29/2019 9:54 AM CDT Height 188 cm (6' 2 ) 04/29/2019 9:54 AM CDT Body Mass Index 30.17 04/29/2019 9:54 AM CDT documented in this encounter Patient Instructions * Patient Instructions* Patricia Cheng, SCREEN REPAIRER CRUSHER-MARSHMALLOW MACHINE OPERATOR - 04/29/2019 10:01 AM CDT Images from the original note [...] week after, if applicable. Follow up with Kevin Epps MD if [...] REQUIRES IMMEDIATE EMERGENCY ATTENTION. Patient Education Sinusitis GAS STATION SUPERVISOR: Sinusitis is inflammation or infection of your [...] ask them during your visits. ?? Copyright H[employer] 2019 Information is for End User's use only and may not be sold, redistributed or otherwise used for commercial purposes. All illustrations and images included in CareNotes?? are the copyrighted property of [employer], [employer] or [employer] The above information is an behavioral health aide only. It is not intended as medical advice for individual conditions or treatments. Talk to your doctor, nurse or pharmacist before following any medical regimen to see if it is safe and effective for you. documented in this encounter Progress Notes * Patricia Cheng APRN-CNP - 04/29/2019 9:54 AM CDT Images from the original note were not included. Subjective: David Rider is a 38 year old male who presents to clinic today for Chief Complaint Patient presents with ??? Sinusitis . David Rider is here for evaluation of congestion, post nasal drip, sinus pressure. his PCP is Kevin Epps MD. He states the Onset was: 2 weeks and course is gradually worsening. Heis drinking plenty of fluids.. Past History of no history of pneumonia or bronchitis. He is a non-smoker. The pain is described as aching and pressure, and is 5/10 in intensity. OTC- Saline Nasal flushes, steam, Flonase. Sick Contacts: No known sick contacts. Past Medical History: Diagnosis Date ??? Anxiety and depression No family history on file. Current Outpatient Medications Medication Sig Dispense Refill ??? amoxicillin-clavulanate (AUGMENTIN) 875-125 MG tablet Take 1 tablet by mouth every 12 hours for7 days 14 tablet 0 ??? BuPROPion HCl (WELLBUTRIN PO) ??? Cholecalciferol (VITAMIN D PO) ??? CITALOPRAM HYDROBROMIDE PO ??? fluticasone propionate (FLONASE ALLERGY RELIEF) 50 MCG/ACT nasal spray Hudson 2 sprays into eachnostril once daily Reasons: [...] resource strain: Not on file ??? Food insecurity: Worry: Not on file Inability: Not on file ??? Transportation needs: Medical: Not on file Non-medical: Not on file Tobacco Use ??? Smoking status: Never Smoker ??? Smokeless tobacco: Never Used Substance and Sexual Activity ??? Alcohol use: Not on file ??? Drug use: Not on file ??? Sexual activity: Not on file Lifestyle ??? Physical activity: Days per week: Not on file Minutes per session: Not on file ??? Stress: Not on file Relationships ??? Social connections: Talks on phone: Not on file Gets together: Not on file Attends bahai service: Not on file Active member of club or organization: Not on file Attends meetings of clubs or organizations: Not on file Relationship status: Not on file ??? Intimate partner violence: Fear of current or ex partner: Not on file Emotionally abused: Not on file Physically abused: Not on file Forced sexual activity: Not on file Other Topics Concern ??? Not on file Social History Narrative ??? Not on file Review of Systems Constitutional: Positive for fatigue, malaise, Negative for fevers, chills, sweats. Eyes: Negative Ears, nose, mouth, and throat: Positive for earaches bilaterally, sinus trouble, congestion Respiratory: Negative for acute cough Cardiovascular: Negative Hematologic/lymphatic: Negative for fever Objective: BP 122/82 Pulse 100 Temp 99.2 ??F (37.3 ??C) Resp 16 Ht 1.88 m (6' 2 ) Wt 106.6 kg (235 lb) SpO2 98% BMI 30.17 kg/m2 General appearance: alert, cooperative, no distress, oriented to person, place, and time Head: normocephalic, without trauma Eyes: sclera and conjunctiva clear Ears: neither erythema of external ear bilaterally Right tympanic membrane - erythematous and air/fluid interface visualized Left tympanic membrane - erythematous and air/fluid interface visualized Nose: mucosa erythematous and swollen, maxillary tenderness bilaterally, frontal tenderness bilaterally, and ethmoidal tenderness bilaterally Throat: mild oropharyngeal erythema Neck: supple Nodes: no parotid, cervical, pre-auricular or post-auricular adenopathy Lungs: breath sounds normal and symmetric; no rales or wheezes Heart: regular rhythm, normal S1 and S2, without murmurs, gallops or rubs Assessment: Encounter Diagnosis Name Primary? Acute non-recurrent maxillary sinusitis Yes Plan: Drink plenty of fluids to [...] tablet Sig: Take 1 tablet by mouth every 12 hours for 7 days Dispense: 14 tablet Refill: 0 ALEX Najera 04/29/2019 10:09 AM documented in this encounter Plan of Treatment Not on file documented as of this encounter Visit Diagnoses Diagnosis Acute non-recurrent maxillary sinusitis- Primary documented in this encounter
--- OUTSIDE RECORDS SUMMARY | 2024-07-02 06:32 | XMS_ITS | Encounter Summary ---
Author Organization [facility] Address [address] [place] [address]. [place] [id number] [place] [address] Care Team Providers Care Data Center Manager Name Role Phone Haris Hoffman DO Primary Care Provider + Reason for Visit * Reason Comments Lab (SCAN) Encounter Details Date Type Department Care Team (Latest Contact Info) Description 09/27/2023 Scan HEALTH INFO [facility] Scanned, Doc Med Group Lab (SCAN) Social History Tobacco Use Types Packs/Day [...] st Contact Info) Description 07/30/2024 8:40 AM BLUE LINE OPERATOR Office Visit [facility] Family & Internal Medicine - [address] [phone] Haris Hoffman DO [address] [place] [phone] documented as of this encounter Procedures Procedure Name Priority Date/Time Associated Diagnosis Comments OUTSIDE LAB (SCAN ORDER) Routine 09/27/2023 documented in this encounter Results * OUTSIDE LAB (09/27/2023) HGB A1C 5.5 % [facility] 09/27/2023 us Doc Med Group Scanned SCANNING Final Resu lt [facility] documented in this encounter Visit Diagnoses Not on filedocumented in this encounter Care Teams Data Center Manager Relationship Specialty Start Date End Date Haris Hoffman DO [address] [place] [address] PCP - General FAMILY PRACTICE 05/09/19 documented as of this encounter
--- OUTSIDE RECORDS SUMMARY | 2024-07-02 06:32 | XMS_ITS | Encounter Summary ---
Author Organization [facility] Address [address] [place] [address]. [place], [place] [phone] [place] [address] Care Team Providers Care Sinter Press Operator Name Role Phone Haris Hoffman Primary Care Provider + Encounter Details Date Type Department Care Team (Latest Contact Info) Description 11/21/2021 Travel Social History Tobacco Use Types Packs/Day [...] st Contact Info) Description 07/30/2024 8:40 AM UTILITY SALES AND SERVICE MANAGER Office Visit [facility] Family & Internal Medicine [address] [address] Haris Hoffman DO [address] [place] [address] documented as of this encounter Visit Diagnoses Not on filedocumented in this encounter Care Teams Sinter Press Operator Relationship Specialty Start Date End Date Haris Hoffman DO [address] [place] [phone] PCP - General FAMILY PRACTICE 05/09/19 documented as of this encounter
--- OUTSIDE RECORDS SUMMARY | 2024-07-02 06:32 | XMS_ITS | Encounter Summary ---
Author Organization [facility] Address [address] [place] [address] Care Team Providers Care Counter Help Name Role Phone Unavailable Primary Care Provider Unavailabl e Reason for Visit * Reason Comments Sinusitis Encounter Details Date Type Department Care Team (Late st Contact Info) Description 08/30/2017 10:00 AM SLOPE TENDER Office Visit [facility] AT [address] [phone] Provider, Earnestine Exp Nameoki Acute pansinusitis, recurrence not specified (Primary Dx) Social History Tobacco Use Types Packs/Day Years Used Date Smoking Tobacco: Never Smokeless Tobacco: Never Sex and Gender Information Value Date Recorded Sex Assigned at Not on file Gender Identity Not on file Sexual Orientation Not on file documented as of this encounter Last Filed Vital Signs Vital Sign Reading Time Taken Comments Blood Pressure 126/74 08/30/2017 9:54 AM SLOPE TENDER Pulse 76 08/30/2017 9:54 AM SLOPE TENDER Temperature 36.8 ??C (98.2 ??F) 08/30/2017 9:54 AM CS T Respiratory Rate 16 08/30/2017 9:54 AM SLOPE TENDER Oxygen Saturation 95% 08/30/2017 9:54 AM SLOPE TENDER Inhaled Oxygen Concentration - - Weight 104.3 kg (230 lb) 08/30/2017 9:54 AM SLOPE TENDER Height 188 cm (6' 2 ) 08/30/2017 9:54 AM SLOPE TENDER Body Mass Index 29.53 08/30/2017 9:54 AM SLOPE TENDER documented in this encounter Patient Instructions * Patient Instructions* Patricia Cheng BOWLING ALLEY OPERATOR-MARINE INSULATOR - 08/30/2017 10:30 AM SLOPE TENDER Images from the original note were not included. Drink plenty of fluids to help thin secretions. May take Tylenol or Ibuprofen for fever or pain as directed per package instructions Recommend daily use of OTC intranasal saline irrigation per package instructions May take OTC antihistamines such as Zyrtec, Shannon, or Claritin as directed per package instructions, for runny nose or allergy symptoms May take Sudafed (must get from behind pharmacy counter), for relief of sinus congestion, as directed per package instructions Recommend daily use of Flonase or similar nasal spray for inflamed nasal passages, as directed per package instructions. Must use consistently. May take 10-12 days to notice results. Follow up with Kevin Epps MD if [...] COMPLICATION AND REQUIRES IMMEDIATE EMERGENCY ATTENTION. Sinusitis RN FIRST ASSISTANT: Sinusitis is inflammation or infection of your [...] ask them during your visits. ?? 2017 [employer] Information is for End User's use only and may not be sold, redistributed or otherwise used for commercial purposes. All illustrations and images included in CareNotes?? are the copyrighted property of [employer] or [employer]. The above information is an educational therapist only. It is not intended as medical advice for individual conditions or treatments. Talk to your doctor, nurse or pharmacist before following any medical regimen to see if it is safe and effective for you. E TENDER documented in this encounter Progress Notes * Patricia Cheng APRN-CNP - 08/30/2017 10:20 AM CST Images from the original note were not included. Subjective: David Rider is a 36 y.o. male who presents to clinic today for Chief Complaint Patient presents with ??? Sinusitis . David Rider is here for evaluation of sore throat, congestion, post nasal drip, sinus pressure, achiness, headache described as sinus pain and pressure, and dry cough. PCP is Kevin Epps MD. He states the Onset was: 10 days and course is gradually worsening. He is drinking plenty of fluids. No history of pneumonia or bronchitis. He is a non-smoker. Positive for sick contacts. OTC- Claritin and Ibuprofen for pain. Past Medical History: Diagnosis Date ??? Anxiety and depression No family history on file. Current Outpatient Prescriptions Medication Sig Dispense Refill ??? Cholecalciferol (VITAMIN D PO) ??? amoxicillin-clavulanate (AUGMENTIN) 875-125 MG tablet Take 1 tablet by mouth 2 times daily for 10 days 20 tablet 0 ??? CITALOPRAM HYDROBROMIDE PO ??? BuPROPion HCl (WELLBUTRIN PO) No current facility-administered medications for this visit. No Known Allergies Social History Social History ??? Marital status: Social History Main Topics ??? Smoking status: Never Smoker Review of Systems Constitutional: Positive for malaise and headache Eyes: Negative Ears, nose, mouth, and throat: Positive for sinus trouble, congestion, rhinorrhea, post nasal drip Respiratory: Positive for dry cough Cardiovascular: Negative for palpitations Gastrointestinal: Negative for decreased appetite. Hematologic/lymphatic: Negative Objective: BP 126/74 Pulse 76 Temp 98.2 ??F Resp 16 Ht 1.88 m (6' 2 ) Wt 104.3 kg (230 lb) SpO2 95% BMI 29.53 kg/m2 General appearance: alert, cooperative, no distress, oriented to person, place, and time Head: normocephalic, without trauma Eyes: sclera and conjunctiva clear Ears: canals clear, tympanic membranes normal, hearing intact to voice Nose: nares open; no septal deviation is noted, mucosa erythematous and swollen, clear rhinorrhea, maxillary tenderness bilaterally, ethmoidal sinus tenderness bilaterally Throat: no mucous membrane abnormalities, lips, mucosa, and tongue normal; teeth and gums normal. Neck: supple Nodes: mild, benign-appearing anterior cervical adenopathy Lungs: breath sounds normal and symmetric; no rales or wheezes Heart: regular rhythm, normal S1 and S2, without murmurs, gallops or rubs Assessment: Encounter Diagnosis Name Primary? Acute pansinusitis, recurrence not specified Yes Plan: Drink plenty of fluids to help thin secretions. May take Tylenol or Ibuprofen for fever or pain as directed per package instructions Recommend daily use of OTC intranasal saline irrigation per package instructions May take OTC antihistamines such as Zyrtec, Shannon, or Claritin as directed per package instructions, for runny nose or allergy symptoms May take Sudafed (must get from behind pharmacy counter), for relief of sinus congestion, as directed per package instructions Recommend daily use of Flonase or similar nasal spray for inflamed nasal passages, as directed per package instructions. Must use consistently. May take 10-12 days to notice results. Reviewed education materials and instructions with patient [...] 10 days Dispense: 20 tablet Refill: 0 Patricia Cheng APRN, TECHNICAL ADMINISTRATIVE ASSISTANT-BC 08/30/2017 10:57 AM E TENDER documented in this encounter Plan of Treatment Not on file documented as of this encounter Visit Diagnoses Diagnosis Acute pansinusitis, recurrence not specified- Primary documented in this encounter
--- OUTSIDE RECORDS SUMMARY | 2024-07-02 06:32 | XMS_ITS | Encounter Summary ---
Author Organization [facility] Address [address] [place] [address] Care Team Providers Care Traffic Controller Cable Name Role Phone Haris Hoffman DO Primary Care Provider + Reason for Visit * Reason Comments Cough Congestion Sore Throat Sinusitis Encounter Details Date Type Department Care Team (Late st Contact Info) Description 08/22/2019 11:20 AM GRAIN LOADER Office Visit [facility] AT [address] [phone] Provider, Vinniesarita Exp Nameksi Acute maxillary sinusitis, recurrence not specified (Primary Dx) Social History Tobacco Use Types Packs/Day Years Used Date Smoking Tobacco: Never Smokeless Tobacco: Never Sex and Gender Information Value Date Recorded Sex Assigned at Not on file Gender Identity Not on file Sexual Orientation Not on file documented as of this encounter Last Filed Vital Signs Vital Sign Reading Time Taken Comments Blood Pressure 120/88 08/22/2019 11:17 AM GRAIN LOADER Pulse 102 08/22/2019 11:17 AM GRAIN LOADER Temperature 36.9 ??C (98.4 ??F) 08/22/2019 11:[address] Respiratory Rate 17 08/22/2019 11:17 AM GRAIN LOADER Oxygen Saturation 98% 08/22/2019 11:17 AM GRAIN LOADER Inhaled Oxygen Concentration - - Weight 111.1 kg (245 lb) 08/22/2019 11:17 AM GRAIN LOADER Height 188 cm (6' 2 ) 08/22/2019 11:17 AM GRAIN LOADER Body Mass Index 31.46 08/22/2019 11:17 AM GRAIN LOADER documented in this encounter Patient Instructions * Patient Instructions* Denise Boston, FLATWORK IRONER-WARP TRUCKER - 08/22/2019 11:27 AM GRAIN LOADER Images from the original note were not included. Drink plenty of fluids to help thin secretions. May take Tylenol or Ibuprofen for fever or pain as directed per package instructions May take OTC antihistamines such as Zyrtec, Shannon, or Claritin as directed per package instructions for allergy relief Steam can help to relieve pressure in sinuses- can do with with hot showers (close door, no fan), boil a pot of water and put a towel over your head (CAREFUL not to burn self), or there are steam machines you can buy. Recommend use of OTC intranasal saline irrigation four times daily as needed (Netti-pot, sinus rinse, [place] nasal spray, or normal saline nose spray) Reviewed education materials and instructions with patient and answered all questions. Follow up with Haris Hoffman, DO if [...] REQUIRES IMMEDIATE EMERGENCY ATTENTION. Patient Education Sinusitis POLYMERIZATION ENGINEER: Sinusitis is inflammation or infection of your [...] ask them during your visits. ?? Copyright [employer] 2019 Information is for End User's use only and may not be sold, redistributed or otherwise used for commercial purposes. All illustrations and images included in CareNotes?? are the copyrighted property of [employer] or [employer] The above information is an paramedical aide only. It is not intended as medical advice for individual conditions or treatments. Talk to your doctor, nurse or pharmacist before following any medical regimen to see if it is safe and effective for you. N LOADER documented in this encounter Progress Notes * Denise Boston APRN-CNP - 08/22/2019 11:20 AM CST David Rider is a 38 year old male who presents to clinic today for Chief Complaint Patient presents with ??? Cough ??? Congestion ??? Sore Throat ??? Sinusitis . his PCP is Haris Hoffman DO. David Rider is here for evaluation of sore throat, congestion, post nasal drip, sneezing, sinus pressure, productive cough Color: moderate green, achiness. He states the Onset was: over 2 weeks andcourse is gradually worsening. He is drinking plenty of fluids.. He is a non-smoker. OTC- cold and c ough medication with little relief. Patient recently here (1 month ago) and treated for a sinus infection with Augmentin, reports that he got better and then got worse again. Past Medical History: Diagnosis Date ??? Anxiety [...] tablet by mouth 2 times daily for 7 days Reasons: sinusitis 14 tablet 0 ??? fluticasone propionate (FLONASE ALLERGY RELIEF) 50 MCG/ACT nasal spray Grant 2 sprays into eachnostril once daily Reasons: [...] file Gets together: Not on file Attends yazidism service: Not on file Active member of [...] ??? Not on file Review of Systems Pertinent items are noted in HPI Constitutional: Positive for fatigue, Negative for fevers, chills. Eyes: Negative Ears, nose, mouth, and throat: Positive for frequent URI's, sinus trouble, congestion Respiratory: Positive for acute cough, sputum production, Negative for asthma, wheezing Cardiovascular: Negative Neurological: Positive for headaches Objective: BP 120/88 (BP SITE: RIGHT ARM, BP POSITION: SITTING) Pulse 102 Temp 98.4 ??F (36.9 ??C) (Oral) Resp17 Ht 1.88 m (6' 2 ) Wt 111.1 kg (245 lb) SpO2 98% BMI 31.46 kg/m2 General appearance: alert, cooperative, no distress, oriented to person, place, and time Head: normocephalic, without trauma Eyes: sclera and conjunctiva clear Ears: Right tympanic membrane - air/fluid interface visualized; Left tympanic membrane - air/fluid interface visualized Nose: mucosa erythematous and swollen, purulent rhinorrhea, maxillary tenderness bilaterally, frontal tenderness bilaterally Throat: no mucous membrane abnormalities Neck: supple Nodes: no cervical adenopathy Lungs: breath sounds normal and symmetric; no rales or wheezes Heart: regular rhythm Neurologic: mental status normal Assessment: Encounter Diagnosis Name Primary? Acute maxillary sinusitis, recurrence not specified Yes Plan: Drink plenty of fluids to help thin secretions. May take Tylenol or Ibuprofen for fever or pain as directed per package instructions May take OTC antihistamines such as Zyrtec, Shannon, or Claritin as directed per package instructions for allergy relief Steam can help to relieve pressure in sinuses- can do with with hot showers (close door, no fan), boil a pot of water and put a towel over your head (CAREFUL not to burn self), or there are steam machines you can buy. Recommend use of OTC intranasal saline irrigation four times daily as needed (Netti-pot, sinus rinse, [place] nasal spray, or normal saline nose spray) Reviewed education materials and instructions with patient and answered all questions. Follow up with Haris Hoffman, DO if [...] EMERGENCY ATTENTION. Orders Placed This Encounter ??? DISCONTD: doxycycline hyclate (VIBRAMYCIN) 100 MG tablet Sig: Take 1 tablet by mouth 2 times daily for 7 days Reasons: sinusitis Dispense: 14 tablet Refill: 0 May interchange for whichever salt form is preferred. ??? DISCONTD: benzonatate (TESSALON) 100 MG capsule Sig: Take 1 capsule by mouth 3 times daily as needed for Cough Dispense: 30 capsule Refill: 0 ??? benzonatate (TESSALON) 100 MG capsule Sig: Take 1 capsule by mouth 3 times daily as needed for Cough Dispense: 30 capsule Refill: 0 ??? doxycycline hyclate (VIBRAMYCIN) 100 MG tablet Sig: Take 1 tablet by mouth 2 times daily for 7 days Reasons: sinusitis Dispense: 14 tablet Refill: 0 Denise Boston APRN, SHILOH-BC 08/22/2019 11:32 AM N LOADER documented in this encounter Plan of Treatment Not on file documented as of this encounter Visit Diagnoses Diagnosis Acute maxillary sinusitis, recurrence not specified- Primary documented in this encounter Care Teams Traffic Controller Cable Relationship Specialty Start Date End Date Haris Hoffman DO PCP - General 05/23/19 documented as of this encounter
--- OUTSIDE RECORDS SUMMARY | 2024-07-02 06:32 | XMS_ITS | Encounter Summary ---
Author Organization [facility] Address [address] [place] [address]. [place] [address] Care Team Providers Care Data Warehouse Manager Name Role Phone Haris Hoffman DO Primary Care Provider + Reason for Referral * Consultation (Routine) - Authorized Specialty Diagnoses / Procedures Referred By Anabel martin Referred To Contact OTOLARYNGOLOGY Diagnoses Chronic maxillary sinusitis Recurrent sinusitis Procedures OFFICE/OUTPATIENT NEW LOW MDM 30-44 MINUTES OFFICE/OUTPT VISIT,NEW,LEVL IV OFFICE/OUTPT VISIT,NEW,LEVL V OFFICE/OUTPT VISIT,EST,LEVL III OFFICE/OUTPT VISIT,EST,LEVL IV OFFICE/OUTPT VISIT,EST,LEVL V Haris Hoffman DO [address] [place] [address] Phone: tel: fax: [facility], [address] [address] Phone: tel: fax: Referral ID Status Reason Start Date Expiration Date Visits Requested Visits Authorized [id number] Authorized Specialty Services 12/19/2023 01/17/2025 100 100 * Imaging (Routine) - Closed Specialty Diagnoses / Procedures Referred By Anabel martin Referred To Contact RADIOLOGY Diagnoses Chronic maxillary sinusitis Recurrent sinusitis Procedures CT SINUS WO CON Haris Hoffman, DO [address] [place] [address] Phone: tel: fax: [facility] [address] [facility] [address] [place] [address] Phone: tel: fax: Referral ID Status Reason Start Date Expiration Date Visits Re quested Visits Authorized [id number] Closed 12/19/2023 12/19/2024 1 1 Reason for Visit * Reason Comments Facial Pain Sx off and on x4 mon ths pt states he has been at least 3 times steroids(pt prefers not to have steroids as medication made pt angry) and abx given previously Fatigue Runny Nose Post Nasal Drainage Encounter Details Date Type Department Care Team (Late st Contact Info) Description 12/19/2023 1:20 PM CDT Office Visit [facility] Family & Internal Medicine - [place] [address] [place] [address] Haris Hoffman DO [address] [place] [address] Facial Pain (Sx off and on x4 months pt states he has been at least 3 times steroids(pt prefers not to have steroids as medication made pt angry) and abx given previously ); Fatigue; Runny Nose; Post Nasal Drainage Social History Tobacco Use Types Packs/Day Years [...] Mass Index 34 12/19/2023 1:38 PM CDT documented in this encounter Patient Instructions * Patient Instructions* Haris Hoffman DO - 12/19/2023 1:20 PM CDT Take Flonase and Zyrtec daily for one month to see if this improves your symptoms. documented in this encounter Progress Notes * Haris Hoffman DO - 12/19/2023 1:20 PM CDT Images from the original note were not included. GENERAL OFFICE VISIT Encounter Date: 12/19/2023 Chief Complaint: 43-year-old male presents for Facial Pain (Sx off and on x4 months pt states he has been at least 3times steroids(pt prefers not to have steroids as medication made pt angry) and abx given previously ), Fatigue, Runny Nose, and Post Nasal Drainage HPI: Pt presents for chronic facial pain. Pt states he has had multiple courses of steroids and abx therapy. Available PDMP data shows 1 course of cefdinir and 3 courses of Augmentin as well as 2 courses of different steroids. Pt notes he had manic symptoms with the steroid. Pt has facial pain, pointingto frontal and maxillary, post nasal drip, rhinorrhea, and fatigue. Pt notes some pressure in his ears as well. Pt has intermittently tried Zyrtec and Flonase, although not all this course. Pt does snore as well as having fatigue. Pt is still needing his labs drawn for the elevated liver enzymes, leukocytosis, and hx of HLD. Review of Systems Constitutional: Negative for fever. HENT: See HPI Respiratory: See HPI Gastrointestinal: Negative for abdominal pain. Psychiatric/Behavioral: Negative for depression. Patient Active Problem List Diagnosis Mild episode of recurrent major depressive disorder (CMS/HCC) BMI 30.0-30.9,adult Gastroesophageal reflux disease with esophagitis Recurrent sinus infections Attention deficit hyperactivity disorder (ADHD), unspecified ADHD type PTSD (post-traumatic stress disorder) ROSY (generalized anxiety disorder) Past Medical History: Diagnosis Date Back injury 2011 Depression Esophageal abnormality inflamed Past Surgical History: Procedure Laterality Date SPINAL FUSION 2011 L5-S1 Family History Problem Relation Name Age of Onset Diabetes Mother Heart Disease Mother Diabetes Brother Social History Socioeconomic History Marital status: Spouse name: Not on file Number of children: 4 Years of education: Not on file Highest education level: Not on file 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 Tobacco Use Smoking status: Never Smokeless tobacco: Never Vaping Use Vaping status: Never Used Substance and Sexual Activity Alcohol use: Yes Drug use: No Sexual activity: Not on file Other Topics Concern Not on file Social History Narrative Not on file Social Determinants of Health Financial Resource Strain: Not on file Food Insecurity: Not on file Transportation Needs: Not on file Physical Activity: Not on file Stress: Not on file Social Connections: Not on file Intimate Partner Violence: Not on file Housing Stability: Not on file Immunization History Administered Date(s) Administered Fluzone 6 Months+ Quad (0.5 mL Prefilled Syringe) 10/03/2023 [employer]ano COVID-19 (ORIGINAL FORMULATION, PURPLE CAP) mRNA, LNP-S, PF, 30 MCG/0.3 ML DOSE 10/10/2020, 10/31/2020, 07/30/2021 Tdap (Generic) 09/02/2020 Current Outpatient Medications Medication Sig Dispense Refill ADDERALL XR 20 MG 24 hr capsule Take 1 capsule by mouth daily. buPROPion XL 150 MG 24 hr tablet Take 1 tablet (150 mg total) by mouth daily. Cholecalciferol (VITAMIN D-3 OR) Take 3,000 Units by mouth daily. doxycycline hyclate (VIBRAMYCIN) 100 MG capsule Take 1 capsule (100 mg total) by mouth 2 (two) times daily for 10 days. 20 capsule 0 lithium CR (LITHOBID) 450 MG tablet Take 4 tablets (1,800 mg total) by mouth nightly at bedtime. lurasidone (LATUDA) 40 MG Tab tablet Take 1 tablet (40 mg total) by mouth nightly at bedtime. propranolol LA (INDERAL LA) 60 MG 24 hr capsule 1 capsule (60 mg total). QUEtiapine (SEROQUEL) 50 MG tablet Take 0.5-1 tablets (25-50 mg total) by mouth nightly at bedtime. venlafaxine XR 75 MG 24 hr capsule TAKE 1 CAPSULE BY MOUTH EVERY DAY WITH FOOD FOR 30 DAYS eszopiclone (LUNESTA) 1 MG tablet Take 1 tablet (1 mg total) by mouth nightly at bedtime. at bedtime. (Patient not taking: Reported on 12/19/2023) No current facility-administered medications for this visit. Current Outpatient Medications on File Prior to Visit Medication Sig ADDERALL XR 20 MG 24 hr capsule Take 1 capsule by mouth daily. buPROPion XL 150 MG 24 hr tablet Take 1 tablet (150 mg total) by mouth daily. Cholecalciferol (VITAMIN D-3 OR) Take 3,000 Units by mouth daily. lithium CR (LITHOBID) 450 MG tablet Take 4 tablets (1,800 mg total) by mouth nightly at bedtime. lurasidone (LATUDA) 40 MG Tab tablet Take 1 tablet (40 mg total) by mouth nightly at bedtime. propranolol LA (INDERAL LA) 60 MG 24 hr capsule 1 capsule (60 mg total). QUEtiapine (SEROQUEL) 50 MG tablet Take 0.5-1 tablets (25-50 mg total) by mouth nightly at bedtime. venlafaxine XR 75 MG 24 hr capsule TAKE 1 CAPSULE BY MOUTH EVERY DAY WITH FOOD FOR 30 DAYS eszopiclone (LUNESTA) 1 MG tablet Take 1 tablet (1 mg total) by mouth nightly at bedtime. at bedtime. (Patient not taking: Reported on 12/19/2023) No current facility-administered medications on file prior to visit. Review of patient's allergies indicates: No Known Allergies Objective: Filed Vitals: 12/19/23 1338 BP: (!) 128/90 Pulse: 88 Resp: 20 Temp: 99 ??F (37.2 ??C) TempSrc: Temporal SpO2: 98% Weight: 120.1 kg (264 lb 12.8 oz) Height: 1.88 m (6' 2 ) Physical Exam Vitals and nursing note reviewed. HENT: Head: Normocephalic and atraumatic. Right Ear: External ear normal. Left Ear: External ear normal. Nose: Nose normal. Eyes: General: No scleral icterus. Conjunctiva/sclera: Conjunctivae normal. Neck: Comments: 18.75 neck circumference Cardiovascular: Rate and Rhythm: Normal rate and regular rhythm. Pulmonary: Effort: Pulmonary effort is normal. Skin: General: Skin is dry. Findings: No rash. Neurological: Mental Status: He is alert and oriented to person, place, and time. Psychiatric: Mood and Affect: Mood and affect normal. Assessment & Plan: David was seen today for facial pain, fatigue, runny nose and post nasal drainage. Diagnoses and all orders for this visit: Chronic maxillary sinusitis - doxycycline hyclate (VIBRAMYCIN) 100 MG capsule; Take 1 capsule (100 mg total) by mouth 2 (two) times daily for 10 days. - CT SINUS WO CON; Future - Ambulatory referral to ENT Snoring Recurrent sinusitis - doxycycline hyclate (VIBRAMYCIN) 100 MG capsule; Take 1 capsule (100 mg total) by mouth 2 (two) times daily for 10 days. - CT SINUS WO CON; Future - Ambulatory referral to ENT Elevated liver enzymes - VENIPUNC ARM DRAW Leukocytosis, unspecified type - VENIPUNC ARM DRAW BMI 34.0-34.9,adult Discussion/Summary: For chronic and recurrent sinusitis, will start on doxycycline today and will have patient take Zyrtec and Flonase daily for 1 month. If still not improving, will have patient obtain CT scan as ordered and follow-up with ENT. For fatigue and snoring, will order sleep study today. Will obtain labs as previously ordered. Will dictate follow-up based upon results of above testing. Patient verbalizedunderstanding. Haris Hoffman DO documented in this encounter Plan of Treatment Upcoming Encounters Date Type Department Care Team (Late st Contact Info) Description 07/30/2024 8:40 AM PARTNERSHIP MANAGER Office Visit [facility] Medical Group Family & Internal Medicine - [address] [phone] Haris Hoffman DO [address] [place] [address] Scheduled Orders Name Type Priority Associated Diagnoses Orde r Schedule CT SINUS WO CON CT Routine Chronic maxillary sinusitis Recurrent sinusitis Expected: 12/19/2023, Expires: 12/18/2024 Scheduled Referrals Name Type Priority Associated Diagnoses Orde r Schedule Ambulatory referral to ENT Referral Routine Chronic maxillary sinusitis Recurrent sinusitis Ordered: 12/19/2023 documented as of this encounter Procedures Procedure Name Priority Date/Time Associated Diagnosis Comments LIPID PANEL Routine 12/19/2023 2:24 PM CDT Hyperlipidemia, unspecified hyperlipidemia type HEPATIC FUNCTION PANEL Routine 12/19/2023 2:24 PM CDT Elevated liver enzymes CBC W/DIFF AUTOMATED Routine 12/19/2023 2:24 PM CDT Leukocytosis, unspecified type VENIPUNC ARM DRAW Routine 12/19/2023 1:5 9 PM CDT Elevated liver enzymes Leukocytosis, unspecified type documented in this encounter Results * (ABNORMAL) LIPID PANEL (12/19/2023 2:24 PM CDT) CHOLESTEROL 171 <200 MG/DL 12/19/2023 8:23 PM CDT -[facility] TRIGLYCERIDES 185(H) <150 MG/DL 12/19/2023 8:23 PM CDT [facility] HDL 43 >40 MG/DL 12/19/2023 8:23 PM CDT [facility] LDL-C 91 <100 MG/DL 12/19/2023 8:23 PM CDT [facility] VLDL CALCULATION 37(H) 5 - 28 MG/DL 12/19/2023 8:23 PM CDT [facility] CHOL/HDL RATIO 4.0 0.0 - 4.0 12/19/2023 8:23 PM CDT [facility] LDL/HDL 2.1 0.41 - 2.13 12/19/2023 8:23 PM CDT [facility] NON HDL CHOLESTEROL 128 <140 MG/DL 12/19/2023 8:23 PM CDT [facility] 12/19/2023 2:24 PM CDT us Haris Hoffman DO LABORATORY Final Re sult [facility] [address] [place] [address], * (ABNORMAL) HEPATIC FUNCTION PANEL (12/19/2023 2:24 PM CDT) BILIRUBIN TOTAL S/P/B 0.9 0.2 - 1.0 MG/DL 12/19/2023 8:23 PM CDT [facility] BILIRUBIN DIRECT S/P/B 0.2 0.0 - 0.2 MG/DL 12/19/2023 8:23 PM CDT [facility] ALKALINE PHOSPHATASE S/P/B 91 45 - 115 U/L 12/19/2023 8:23 PM CDT [facility] AST 25 15 - 37 U/L 12/19/2023 8:23 PM CDT [facility] ALT 80(H) 16 - 63 U/L 12/19/2023 8:23 PM CDT [facility] TOTAL PROTEIN S/P/B 7.5 6.4 - 8.2 G/DL 12/19/2023 8:23 PM CDT [facility] ALBUMIN S/P/B 4.1 3.4 - 5.0 G/DL 12/19/2023 8:23 PM CDT [facility] 12/19/2023 2:24 PM CDT Haris Hoffman DO LABORATORY Final Re sult [facility] [address] [place] [address], * (ABNORMAL) CBC W/DIFF AUTOMATED (12/19/2023 2:24 PM CDT) WBC 15.55(H) 4.00 - 10.80 x10'3/uL 12/19/2023 8:00 PM CDT [facility] RBC 4.57 4.50 - 6.10 x10'6/uL 12/19/2023 8:00 PM CDT [facility] HGB 14.5 13.0 - 18.0 G/DL 12/19/2023 8:00 PM CDT [facility] HCT 42.4 37.0 - 52.0 % 12/19/2023 8:00 PM CDT [facility] MCV 92.8 78.0 - 100.0 FL 12/19/2023 8:00 PM CDT [facility] MCH 31.7(H) 27.0 - 31.0 PG 12/19/2023 8:00 PM CDT [facility] MCHC 34.2 33.0 - 36.0 G/DL 12/19/2023 8:00 PM CDT [facility] RDW 12.3 11.5 - 14.5 % 12/19/2023 8:00 PM CDT [facility] PLT 387(H) 150 - 350 x10'3/uL 12/19/2023 8:00 PM CDT [facility] MPV 9.2 7.4 - 10.4 FL 12/19/2023 8:00 PM CDT [facility] DIFFERENTIAL TYPE AUTOMATED DIFFERENTIAL 12/19/2023 8:00 PM CDT [facility] NEUTROPHILS % 69.1 % 12/19/2023 8:00 PM CDT [facility] LYMPHOCYTES % 21.8 % 12/19/2023 8:00 PM CDT [facility] MONOCYTES % 6.0 % 12/19/2023 8:00 PM CDT [facility] EOSINOPHILS % 2.4 % 12/19/2023 8:00 PM CDT [facility] BASOPHILS % 0.2 % 12/19/2023 8:00 PM CDT [facility] IMMATURE GRANS % 0.5 % 12/19/2023 8:00 PM CDT [facility] ABS. NEUTROPHILS 10.74(H) 1.60 - 8.30 x10'3/uL 12/19/2023 8:00 PM CDT [facility] ABS. LYMPHOCYTES 3.39 0.80 - 4.70 x10'3/uL 12/19/2023 8:00 PM CDT [facility] ABS. MONOCYTES 0.93 0.00 - 1.50 x10'3/uL 12/19/2023 8:00 PM CDT [facility] ABS. EOSINOPHILS 0.38 0.00 - 0.40 x10'3/uL 12/19/2023 8:00 PM CDT [facility] ABS. BASOPHILS 0.03 0.00 - 0.20 x10'3/uL 12/19/2023 8:00 PM CDT [facility] ABS. IMMATURE GRANULOCYTES 0.08(H) 0.00 - 0.03 x10'3/uL 12/19/2023 8:00 PM CDT [facility] 12/19/2023 2:24 PM CDT us Haris Hoffman DO LABORATORY Final Re sult [facility] [address] [place] [address], documented in this encounter Visit Diagnoses Diagnosis Chronic maxillary sinusitis- Primary Snoring Other dyspnea and respiratory abnormality Recurrent sinusitis Unspecified sinusitis (chronic) Elevated liver enzymes Nonspecific elevation of levels of transaminase or lactic acid dehydrogenase (LDH) Leukocytosis, unspecified type BMI 34.0-34.9,adult Body Mass Index 34.0-34.9, adult Hyperlipidemia, unspecified hyperlipidemia type documented in this encounter Care Teams Data Warehouse Manager Relationship Specialty Start Date End Date Haris Hoffman DO [address] [place] [address] PCP - General FAMILY PRACTICE 05/09/19 documented as of this encounter
--- OUTSIDE RECORDS SUMMARY | 2024-07-02 06:32 | XMS_ITS | Encounter Summary ---
Author Organization [facility] Address [address] [place] [address]. [place] [id number] [place] [address] Care Team Providers Care Filter Tank Tender Helper Head Name Role Phone Haris Hoffman DO Primary Care Provider + Encounter Details Date Type Department Care Team (Latest Contact Info) Description 01/14/2024 Scan HEALTH INFO SRVCS Scanned, Doc Med [...] st Contact Info) Description 07/30/2024 8:40 AM RECLAMATION SUPERVISOR Office Visit [facility] Group Family & Internal Medicine [address] [phone] Haris Hoffman DO [address] [place] [id number] documented as of this encounter Visit Diagnoses Not on filedocumented in this encounter Care Teams Filter Tank Tender Helper Head Relationship Specialty Start Date End Date Haris Hoffman DO [address] [place] [address] PCP - General FAMILY PRACTICE 05/09/19 documented as of this encounter
--- OUTSIDE RECORDS SUMMARY | 2024-07-02 06:32 | XMS_ITS | Encounter Summary ---
Author Organization [facility] Address [address] [place] [address]. [place] [address] Care Team Providers Care Process Camera Operator Name Role Phone Haris Hoffman DO Primary Care Provider + Reason for Visit * Reason Onset Date Comments Error 02/07/2024 Encounter Details Date Type Department Care Team (Late Contact Info) Description 02/07/2024 Telephone [facility] Medical Group Family & Internal Medicine [place] [phone] [place] [phone] Haris Hoffman DO [address] [place] [address] Error Social History Tobacco Use Types Packs/Day Years [...] Encounters Date Type Department Care Team (Late Contact Info) Description 07/30/2024 8:40 AM BIN OPERATOR Office Visit [facility] Family & Internal Medicine - [place] [address] [place] [address] Haris Hoffman DO [address] [place] [address] documented as of this encounter Visit Diagnoses Not on filedocumented in this encounter Care Teams Process Camera Operator Relationship Specialty Start Date End Date Haris Hoffman DO [address] [place] [address] PCP - General FAMILY PRACTICE 05/09/19 documented as of this encounter
--- OUTSIDE RECORDS SUMMARY | 2024-07-02 06:32 | XMS_ITS | Encounter Summary ---
Author Organization [facility] Address [address] [place] [address]. [place], [place] [address] [place] [address] Care Team Providers Care Acid Crane Operator Name Role Phone Haris Hoffman Primary Care Provider + Encounter Details Date Type Department Care Team (Latest Contact Info) Description 11/16/2021 Travel Social History Tobacco Use Types Packs/Day [...] st Contact Info) Description 07/30/2024 8:40 AM BANQUET KITCHEN SUPERVISOR Office Visit [facility] Medical Group Family & Internal Medicine [address] [phone] Haris Hoffman DO [address] [place] [address] documented as of this encounter Visit Diagnoses Not on filedocumented in this encounter Care Teams Acid Crane Operator Relationship Specialty Start Date End Date Haris Hoffman DO [address] [place] [address] PCP - General FAMILY PRACTICE 05/09/19 documented as of this encounter
--- OUTSIDE RECORDS SUMMARY | 2024-07-02 06:32 | XMS_ITS | Encounter Summary ---
Author Organization [facility] Address [address] [place] [address]. [place] [address] Care Team Providers Care Middle School Baseball Coach Name Role Phone Haris Hoffman DO Primary Care Provider + Reason for Visit * Reason Onset Date Comments Problem 09/24/2023 Persistent cough /raw/bleeding throat Encounter Details Date Type Department Care Team (Late st Contact Info) Description 09/24/2023 Telephone [facility] Medical Group Family & Internal Medicine [address] [phone] Haris Hoffman DO [address] [place] [address] Problem (Persistent cough/raw/bleeding throat) Social History Tobacco Use Types Packs/Day Years [...] as of this encounter Progress Notes * Vanna Flores MA - 09/24/2023 10:54 AM CDT 09-24-23: Patient's spouse Jacque called stating the patient is having a persistent cough. Was seen in the ER a few weeks ago but cannot get rid of the cough. Coughing wakes him up at night. Throat hasbecome raw and bloody. Phlegm is clear. Appt scheduled sisi petty documented in this encounter Plan of Treatment Upcoming Encounters Date Type Department Care Team (Late st Contact Info) Description 07/30/2024 8:40 AM GLASS ENGRAVER Office Visit [facility] Medical Group Family & Internal Medicine [address] [phone] Haris Hoffman DO [address] [place] [address] documented as of this encounter Visit Diagnoses Not on filedocumented in this encounter Care Teams Middle [employer] Baseball Coach Relationship Specialty Start Date End Date Haris Hoffman DO [address] [place] [address] PCP - General FAMILY PRACTICE 05/09/19 documented as of this encounter
--- OUTSIDE RECORDS SUMMARY | 2024-07-02 06:32 | XMS_ITS | Encounter Summary ---
Author Organization [facility] Address [address] [address] Care Team Providers Care Maintenance Shop Technician Name Role Phone Unavailable Primary Care Provider Unavailabl e Reason for Visit * Reason Comments Sinusitis Encounter Details Date Type Department Care Team (Late st Contact Info) Description 02/27/2019 9:00 AM CDT Office Visit [facility] AT [address] [address] Provider, Earnestine Exp Nameoki Acute [...] Sign Reading Time Taken Comments Blood Pressure 128/82 02/27/2019 9:02 AM CDT Pulse 68 02/27/2019 9:02 AM CDT Temperature 37.3 ??C (99.1 ??F) 02/27/2019 9:02 AM CD T Respiratory Rate 15 02/27/2019 9:02 AM CDT Oxygen Saturation 98% 02/27/2019 9:02 AM CDT Inhaled Oxygen Concentration - - Weight 104.3 kg (230 lb) 02/27/2019 9:02 AM CDT Height 188 cm (6' 2 ) 02/27/2019 9:02 AM CDT Body Mass Index 29.53 02/27/2019 9:02 AM CDT documented in this encounter Patient Instructions * Patient Instructions* Patricia Cheng, UTILITY SYSTEM OPERATOR-SHEET METAL ASSEMBLER AND RIVETER - 02/27/2019 9:09 AM CDT Images from the original note [...] sinus congestion, as directed per package instructions Follow up with Kevin Epps MD if [...] REQUIRES IMMEDIATE EMERGENCY ATTENTION. Patient Education Sinusitis CHILDCARE CENTER DIRECTOR: Sinusitis is inflammation or infection of your [...] ask them during your visits. ?? Copyright [employer] 2018 Information is for End User's use only and may not be sold, redistributed or otherwise used for commercial purposes. All illustrations and images included in CareNotes?? are the copyrighted property of [employer]. or [employer] The above information is an public health aides teacher only. It is not intended as medical advice for individual conditions or treatments. Talk to your doctor, nurse or pharmacist before following any medical regimen to see if it is safe and effective for you. documented in this encounter Progress Notes * Patricia Cheng APRN-CNP - 02/27/2019 9:02 AM CDT Images from the original note were not included. Subjective: David Rider is a 38 year old male who presents to clinic today for Chief Complaint Patient presents with ??? Sinusitis . David Rider is here for evaluation of sore throat, congestion, post nasal drip, sinus pressure, bilateral ear pressure. his PCP is Kevin Epps MD. He states the Onset was: 2 weeks and course is gradually worsening. Heis drinking plenty of fluids. The pain is described as aching and pressure, and is 5/10 in intensity. OTC- antihistamines, saline irrigation. Sick Contacts: None. Past Medical History: Diagnosis Date ??? Anxiety and depression No family history on file. Current Outpatient Medications Medication Sig Dispense Refill ??? amoxicillin-clavulanate (AUGMENTIN) 875-125 MG tablet Take 1 tablet by mouth 2 times daily withmorning and evening meal for 7 days Reasons: Acute Maxillary Sinus Inflammation 14 tablet 0 ??? BuPROPion HCl (WELLBUTRIN PO) ??? Cholecalciferol (VITAMIN D PO) ??? CITALOPRAM HYDROBROMIDE PO ??? fluticasone propionate (FLONASE ALLERGY RELIEF) 50 MCG/ACT nasal spray [place] 2 sprays into eachnostril once daily Reasons: Allergic Rhinitis 1 bottles 0 No current facility-administered medications for this visit. No Known Allergies Social History Socioeconomic History ??? Marital status: Spouse name: Not on file Review of Systems Constitutional: Positive for fatigue, malaise, headache. Negative for fever, chills. Eyes: Negative Ears, nose, mouth, and throat: Positive for sinus pain and pressure, purulent rhinorrhea, nasal congestion, post nasal drainage, sore throat, and bilateral ear pressure. Respiratory: Negative for shortness of breath, acute cough, wheezing Cardiovascular: Negative Hematologic/lymphatic: Negative for swollen nodes Objective: BP 128/82 Pulse 68 Temp 99.1 ??F (37.3 ??C) Resp 15 Ht 1.88 m (6' 2 ) Wt 104.3 kg (230 lb) SpO2 98%BMI 29.53 kg/m2 General appearance: alert, cooperative, no distress, ill-appearing Head: normocephalic, without trauma Eyes: sclera and conjunctiva clear, lids normal Ears: Bilateral TMs with serous fluid and scar tissue. No erythema or bulging. Nose: mucosa erythematous and swollen, clear rhinorrhea, maxillary tenderness bilaterally, frontal tenderness bilaterally Throat: no mucous membrane abnormalities Neck: supple Nodes: no cervical adenopathy Lungs: breath sounds normal and symmetric; no rales or wheezes Heart: regular rhythm, normal S1 and S2, without murmurs, gallops or rubs Assessment: Encounter Diagnosis Name Primary? Acute non-recurrent maxillary sinusitis Yes Plan: Advised patient to take medications as prescribed. Drink plenty of fluids to help thin secretions. May take Tylenol or Ibuprofen for fever or pain as directed per package instructions Recommend daily use of OTC intranasal saline irrigation per package instructions May take OTC antihistamines such as Zyrtec, Shannon, or Claritin as directed per package instructions, for runny nose or allergy symptoms Reviewed education materials and instructions with patient [...] daily with morning and evening meal for 7 days Reasons: Acute Maxillary Sinus Inflammation Dispense: 14 tablet Refill: 0 ALEX Najera 02/27/2019 10:17 AM documented in this encounter Plan of Treatment Not on file documented as of this encounter Visit Diagnoses Diagnosis Acute non-recurrent maxillary sinusitis- Primary documented in this encounter
--- OUTSIDE RECORDS SUMMARY | 2024-07-02 06:32 | XMS_ITS | Encounter Summary ---
Author Organization [facility] Address [address] [place] [address]. [place] [address] Care Team Providers Care Registered Public Surveyor Name Role Phone Haris Hoffman DO Primary Care Provider + Reason for Referral * Consultation (Routine) - Authorized Specialty Diagnoses / Procedures Referred By Contac t Referred To Contact HEMATOLOGY/ONCOLOGY Diagnoses Elevated WBC count Procedures OFFICE/OUTPATIENT NEW LOW MDM 30-44 MINUTES OFFICE/OUTPT VISIT,NEW,LEVL IV OFFICE/OUTPT VISIT,NEW,LEVL V OFFICE/OUTPT VISIT,EST,LEVL III OFFICE/OUTPT VISIT,EST,LEVL IV OFFICE/OUTPT VISIT,EST,LEVL V Haris Hoffman DO [address] [place] [address] Phone: tel: fax: Benson Kaiser MD [address] [place] [phone] Phone: tel: fax: Referral ID Status Reason Start Date Expiration Date Visits Requested Visits Authorized [id number] Authorized Specialty Services 01/02/2024 01/31/2025 99 99 Reason for Visit * Reason Onset Date Comments Results 12/26/2023 Encounter Details Date Type Department Care Team (Late st Contact Info) Description 12/26/2023 Telephone [facility] Family & Internal [address] [phone] Haris Hoffman DO [address] [place] [address] Results Social History Tobacco Use Types Packs/Day Years [...] as of this encounter Progress Notes * Anika Benjamin MA - 01/02/2024 10:48 AM CDTAddended by: ANIKA BENJAMIN on: 01/02/2024 10:48 AM Modules accepted: Orders * Anika Benjamin MA - 01/02/2024 10:44 AM CDT Called and LMOM for r/c. 2nd attempt to contact. Letter and mychart message sent to patient. * Anika Benjamin MA - 12/26/2023 3:44 PM CDT LMOM for r/c ----- Message from Haris Hoffman DO sent at 12/26/2023 8:00 AM CDT ----- Liver enzymes improved but still elevated. I'd like to obtain a RUQ abdominal as we already discussed. Pt's WBC is still elevated; I'd recommend hematology referral to further investigate unless pt is taking an oral steroid still. Cholesterol is adequately controlled. Repeat lipid panel in 1 year; will dictate liver enzyme recheck on imaging and defer CBC recheck to hematology. documented in this encounter Plan of Treatment Upcoming Encounters Date Type Department Care Team (Late st Contact Info) Description 07/30/2024 8:40 AM EXCELLENCE COACH Office Visit [facility] Family & Internal Medicine - [place] [address] [place] [phone] Haris Hoffman DO [facility] [place] [address] Scheduled Referrals Name Type Priority Associated Diagnoses Orde r Schedule Ambulatory referral to Hematology Referral Routine Elevated WBC count Ordered: 01/02/2024 documented as of this encounter Visit Diagnoses Diagnosis Elevated WBC count- Primary Leukocytosis, unspecified WBC decreased Leukocytopenia, unspecified documented in this encounter Care Teams Registered Public Surveyor Relationship Specialty Start Date End Date Haris Hoffman DO [address] [place] [id number] PCP - General FAMILY PRACTICE 05/09/19 documented as of this encounter
--- OUTSIDE RECORDS SUMMARY | 2024-07-02 06:32 | XMS_ITS | Encounter Summary ---
Author Organization [facility] Address [address] [address] Care Team Providers Care Drill Press Operator Numerical Control Name Role Phone Unavailable Primary Care Provider Unavailabl e Reason for Visit * Reason Onset Date Comments Follow-up 05/01/2019 Encounter Details Date Type Department Care Team (Late st Contact Info) Description 05/01/2019 Telephone [facility] [address] [phone] Abi Ruiz, INSTRUMENT SPECIALIST-[facility] [address] [phone] Follow-up Social History Tobacco Use Types Packs/Day [...]
--- OUTSIDE RECORDS SUMMARY | 2024-07-02 06:32 | XMS_ITS | Encounter Summary ---
Author Organization [facility] Address [address] [place] [address]. [place] [address] Care Team Providers Care Hospice Care Transitions Coordinator Name Role Phone Haris Hoffman DO Primary Care Provider + Reason for Visit * Reason Onset Date Comments Appointment Request 11/22/2023 Encounter Details Date Type Department Care Team (Late st Contact Info) Description 11/22/2023 Telephone [facility] Family & Internal Medicine [place] [id number] [place] [address] Haris Hoffman DO [address] [place] [address] Appointment Request Social History Tobacco Use Types Packs/Day [...] as of this encounter Progress Notes * Abi Brantley RN - 11/26/2023 3:42 PM CDT Attempted to call the patient, was unable to reach them at this time. Left a message requesting a call back. -11/26/23 * Abi Brantley RN - 11/22/2023 8:26 AM CDT Attempted to call the patient regarding up coming appointments, was unable to reach them at this time. Left a message requesting a call back. LL-11/22/23 documented in this encounter Plan of Treatment Upcoming Encounters Date Type Department Care Team (Late st Contact Info) Description 07/30/2024 8:40 AM SOFTWARE ARCHITECT Office Visit [facility] Family & Internal Medicine - [address] [phone] Haris Hoffman DO [address] [place] [phone] documented as of this encounter Visit Diagnoses Not on filedocumented in this encounter Care Teams Hospice Care Transitions Coordinator Relationship Specialty Start Date End Date Haris Hoffman DO [address] [place] [phone] PCP - General FAMILY PRACTICE 05/09/19 documented as of this encounter
--- OUTSIDE RECORDS SUMMARY | 2024-07-02 06:32 | XMS_ITS | Encounter Summary ---
Author Organization [facility] Address [address] [place] [address] Care Team Providers Care Package Sealer Machine Name Role Phone Unavailable Primary Care Provider Unavailabl e Reason for Visit * Reason Comments Sinusitis Encounter Details Date Type Department Care Team (Late st Contact Info) Description 10/27/2016 10:00 AM CDT Office Visit [facility] AT [address] [address] Provider, Earnestine Exp Nameoki Acute maxillary sinusitis, recurrence not specified (Primary Dx) Social History Tobacco Use Types Packs/Day Years Used Date Smoking Tobacco: Never Sex and Gender Information Value Date Recorded Sex Assigned at Not on file Gender Identity Not on file Sexual Orientation Not on file documented as of this encounter Last Filed Vital Signs Vital Sign Reading Time Taken Comments Blood Pressure 120/72 10/27/2016 10:15 AM CDT Pulse 80 10/27/2016 10:15 AM CDT Temperature 37 ??C (98.6 ??F) 10/27/2016 10:15 AM CDT Respiratory Rate 16 10/27/2016 10:15 AM CDT Oxygen Saturation 98% 10/27/2016 10:15 AM CDT Inhaled Oxygen Concentration - - Weight 104.3 kg (230 lb) 10/27/2016 10:15 AM CDT Height 188 cm (6' 2 ) 10/27/2016 10:15 AM CDT Body Mass Index 29.53 10/27/2016 10:15 AM CDT documented in this encounter Patient Instructions * Patient Instructions* Keily Naik APRN-CNP - 10/27/2016 10:22 AM CDT -Sudafed as directed on package to relieve nasal congestion -Saline irrigation rinses/sprays as needed to clear nasal passages -Warm salt water gargles for throat irritation -Tylenol/Motrin as directed for aches, pains and fever -Contact PCP if no improvement in 24-48 hours or if worsening of symptoms Sinusitis CLINICAL SERVICES CONSULTANT: Sinusitis is inflammation or infection of your sinuses. It is most often caused by a virus. Acute sinusitis may last up to 12 weeks. Chronic sinusitis lasts longer than 12 weeks. Recurrent sinusitis is when you have 3 or more episodes of sinusitis in 1 year. Common symptoms include the [...] is worse when you lean forward ?? Teeth pain or pain when you chew Seek care [...] your healthcare provider if: ?? Your symptoms get worse after 5 to 7 days. ?? Your symptoms do not go away after 10 days. ?? You have nausea and vomiting. ?? Your nose is bleeding. ?? You have questions or concerns about your condition or care. Treatment for sinusitis may include any of the following: ?? Acetaminophen decreases pain and fever. It is available without a doctor's order. Ask how much to take and how often to take it. Follow directions. Acetaminophen can cause liver damage if not taken correctly. ?? NSAIDs , such as ibuprofen, help decrease swelling, pain, and fever. This medicine is available with or without a doctor's order. NSAIDs can cause stomach bleeding or kidney problems in certain people. If you take blood thinner medicine, always ask if NSAIDs are safe for you. Always read the medicine label and follow directions. Do not give these medicines to children under 6 months of age without direction from your child's healthcare provider. ?? Nasal steroid sprays may help decrease inflammation in your nose and sinuses. ?? Decongestants help reduce swelling and drain mucus in the nose and sinuses. They may help you breathe easier. ?? Antihistamines help dry mucus in the nose and relieve sneezing. ?? Take your medicine as directed. Contact [...] nasal passages with a saline (salt water) solution. This will help thin the mucus in [...] up with your healthcare provider as directed: Write down your questions so you remember to ask them during your visits. ?? 2016 [employer]. Information is for End User's use only and may not be sold, redistributed or otherwise used for commercial purposes. All illustrations and images included in CareNotes?? are the copyrighted property of [employer]. or [employer]. The above information is an pre parole counseling aide only. It is not intended as medical advice for individual conditions or treatments. Talk to your doctor, nurse or pharmacist before following any medical regimen to see if it is safe and effective for you. documented in this encounter Progress Notes * Keily Naik APRN-CNP - 10/27/2016 10:17 AM CDT [facility] Chief Complaint Patient presents with ??? Sinusitis SUBJECTIVE: HPI Comments: 36 y/o M presents with c/o BL swelling/pain to cheeks accompanied by sensation of dull ache to upper back teeth, congestion and fullness in head for 7 days. Taking over the counter antihistamine and Motrin for symptoms, but they are not helping much. General The history is provided by the patient. This is a new problem. The current episode started more than 1 week ago. The problem occurs daily. The problem has been gradually worsening. Associated symptoms include headaches. Treatments tried: otc allergy medication, Ibuprofen. The treatment provided mild relief. No past medical history on file. No current outpatient prescriptions on file prior to visit. No current facility-administered medications on file prior to visit. No past surgical history on file. Social History Social History ??? Marital status: Spouse name: N/A ??? Number of children: N/A ??? Years of education: N/A Occupational History ??? Not on file. Social History Main Topics ??? Smoking status: Never Smoker ??? Smokeless tobacco: Not on file ??? Alcohol use Not on file ??? Drug use: Not on file ??? Sexual activity: Not on file Other Topics Concern ??? Not on file Social History Narrative ??? No narrative on file No family history on file. Current Outpatient Prescriptions Medication Sig Dispense Refill ??? CITALOPRAM HYDROBROMIDE PO ??? BuPROPion HCl (WELLBUTRIN PO) ??? amoxicillin-clavulanate (AUGMENTIN) 875-125 MG tablet Take 1 Tab by mouth 2 times daily with morning and evening meal for 10 days 20 Tab 0 ??? fluticasone propionate (FLONASE) 50 MCG/ACT nasal spray [place] 1 [place] into each nostril 2 timesdaily 1 Bottle 1 No current facility-administered medications for this visit. No Known Allergies REVIEW OF SYSTEMS: Review of Systems Constitutional: Negative. HENT: Positive for congestion. Respiratory: Negative. Cardiovascular: Negative. Neurological: Positive for headaches. All other systems reviewed and are negative. OBJECTIVE: General appearance: alert, well appearing, and in no distress. BP 120/72 Pulse 80 Temp 98.6 ??F Resp 16 Ht 1.88 m (6' 2 ) Wt 104.3 kg (230 lb) SpO2 98% BMI 29.53 kg/m2 Physical Exam Constitutional: He is well-developed, well-nourished, and in no distress. HENT: Head: Normocephalic. Right Ear: External ear normal. Left Ear: External ear normal. Nose: Mucosal edema and rhinorrhea present. Right sinus exhibits maxillary sinus tenderness. Left sinus exhibits maxillary sinus tenderness. Mouth/Throat: Oropharynx is clear and moist. Neck: Normal range of motion. Neck supple. Cardiovascular: Normal rate, regular rhythm and normal heart sounds. Pulmonary/Chest: Effort normal and breath sounds normal. Vitals reviewed. ASSESSMENT: No results found for this visit on 10/27/16. Encounter Diagnosis Name Primary? Acute maxillary sinusitis, recurrence not specified Yes PLAN: Orders Placed This Encounter ??? amoxicillin-clavulanate (AUGMENTIN) 875-125 MG tablet Sig: Take 1 Tab by mouth 2 times daily with morning and evening meal for 10 days Dispense: 20 Tab Refill: 0 ??? fluticasone propionate (FLONASE) 50 MCG/ACT nasal spray Sig: [place] 1 [place] into each nostril 2 times daily Dispense: 1 Bottle Refill: 1 -Sudafed as directed on package to relieve nasal congestion -Saline irrigation rinses/sprays as needed to clear nasal passages -Warm salt water gargles for throat irritation -Tylenol/Motrin as directed for aches, pains and fever -Contact PCP if no improvement in 24-48 hours or if worsening of symptoms documented in this encounter Plan of Treatment Not on file documented as of this encounter Visit Diagnoses Diagnosis Acute maxillary sinusitis, recurrence not specified- Primary documented in this encounter
--- OUTSIDE RECORDS SUMMARY | 2024-07-02 06:32 | XMS_ITS | Encounter Summary ---
Author Organization [facility] Address [address] [place] [address] Care Team Providers Care Epic Ambulatory Analysts Name Role Phone Haris Hoffman DO Primary Care Provider + Reason for Visit * Reason Onset Date Comments Infection 10/20/2019 Encounter Details Date Type Department Care Team (Late st Contact Info) Description 10/20/2019 Telephone [facility] [address] [facility] [place] [address] Jose Lebron MD [facility] [place] [address] Infection Social History Tobacco Use Types Packs/Day Years Used Date Smoking Tobacco: Never Smokeless Tobacco: Never Sex and Gender Information Value Date Recorded Sex Assigned at Not on file Gender Identity Not on file Sexual Orientation Not on file documented as of this encounter Miscellaneous Notes * Telephone Encounter - Varsha Shelley - 10/20/2019 10:57 AM CDT Patient called stating that he is currently experiencing a sinus infection. He would like to have aprescription for an antibiotic sent to his pharmacy. He did not provide a pharmacy name or phone number. documented in this encounter Plan of Treatment Not on file documented as of this encounter Visit Diagnoses Not on filedocumented in this encounter Care Teams Epic Ambulatory Analysts Relationship Specialty Start Date End Date Haris Hoffman DO PCP - General 05/23/19 documented as of this encounter
--- OUTSIDE RECORDS SUMMARY | 2024-07-02 06:32 | XMS_ITS | Encounter Summary ---
Author Organization [facility] Address [address] [place] [address] Care Team Providers Care Mainspring Winder And Oiler Name Role Phone Unavailable Primary Care Provider Unavailabl e Reason for Visit * Reason Onset Date Comments Follow-up 03/09/2018 Encounter Details Date Type Department Care Team (Late st Contact Info) Description 03/09/2018 Telephone [facility] AT [address] [phone] Kayleigh Randhawa APRN-CNP [address] [place] [address] Follow-up Social History Tobacco Use Types Packs/Day Years Used Date Smoking Tobacco: Never Smokeless Tobacco: Never Sex and Gender Information Value Date Recorded Sex Assigned at Not on file Gender Identity Not on file Sexual Orientation Not on file documented as of this encounter Miscellaneous Notes * Telephone Encounter - Kayleigh Randhawa APRN-CNP - 03/09/2018 11:21 AM CDT Message left to call with any questions or concerns. Kayleigh APRN-CNP documented in this encounter Plan of Treatment Not on file documented as of this encounter Visit Diagnoses Not on filedocumented in this encounter
--- OUTSIDE RECORDS SUMMARY | 2024-07-02 06:32 | XMS_ITS | Encounter Summary ---
Author Organization [facility] Address [address] [place] [address]. [place] [id number] [place] [address] Care Team Providers Care Chemistry Teacher Name Role Phone Haris Hoffman DO Primary Care Provider + Encounter Details Date Type Department Care Team (Latest Contact Info) Description 12/20/2023 Scan HEALTH INFO SRVCS Scanned, Doc Med [...] st Contact Info) Description 07/30/2024 8:40 AM DIAL PRINTER Office Visit [facility] Family & Internal Medicine [address] [phone] Haris Hoffman DO [address] [place] [id number] documented as of this encounter Visit Diagnoses Not on filedocumented in this encounter Care Teams Chemistry Teacher Relationship Specialty Start Date End Date Haris Hoffman DO [address] [place] [address] PCP - General FAMILY PRACTICE 05/09/19 documented as of this encounter
--- OUTSIDE RECORDS SUMMARY | 2024-07-02 06:32 | XMS_ITS | Encounter Summary ---
Author Organization [facility] Address [address] [place] [address]. [address] [address] Care Team Providers Care Dental Nurse Name Role Phone Haris Hoffman DO Primary Care Provider + Reason for Visit * Reason Onset Date Comments Results 11/24/2021 Encounter Details Date Type Department Care Team (Late st Contact Info) Description 11/24/2021 Telephone [facility] Medical Group Family & Internal Medicine [address] [place] [address] Haris Hoffman DO [address] [place] [address] Results Social History Tobacco Use Types Packs/Day [...] AM CDT documented as of this encounter Progress Notes * Lydia Zavala MA - 11/25/2021 1:44 PM CDTAddended by: LYDIA ZAVALA on: 11/25/2021 01:44 PM Modules accepted: Orders * Lydia Zavala MA - 11/25/2021 1:43 PM CDT Patient notified and v/u * Haris Hoffman DO - 11/25/2021 12:52 PM CDT A1c was WNL. * Sunni Magallon MA - 11/24/2021 2:51 PM CDT Left message on machine to please call the office. A1C added on. BB 11/24/2021 * Sunni Magallon MA - 11/24/2021 2:47 PM CDT ----- Message from Haris Hoffman DO sent at 11/21/2021 10:18 PM CDT ----- Pt has elevated cholesterol. Recommend weight loss, aerobic exercise, and eating diets lower in saturated fats. Can we add on an A1c? Pt has elevated liver enzymes. I'd like pt to repeat a hepatic function panel in 1 month. Otherwise labs are acceptable and other labs can be repeated in 1 year. documented in this encounter Plan of Treatment Upcoming Encounters Date Type Department Care Team (Matt phelan Contact Info) Description 07/30/2024 8:40 AM REMOTE SENSING SCIENTIST Office Visit [facility] Medical Group Family & Internal Medicine - [place] [address] [place] [address] Haris Hoffman DO [address] [place] [address] documented as of this encounter Results * (ABNORMAL) HEMOGLOBIN, GLYCOSYLATED (11/24/2021 2:57 PM CDT) HGB A1C 5.4 3.80 - 5.60 % 11/24/2021 5:22 PM CDT [facility] [place], NICHELLE ESTIMATED AVG GLUCOSE 108(H) 74 - 106 MG/DL 11/24/2021 5:22 PM CDT [facility] 11/24/2021 2:57 PM CDT Haris Hoffman DO LABORATORY Final Re sult [facility] [address] [place] [address], [place] [phone] documented in this encounter Visit Diagnoses Diagnosis Elevated glucose- Primary Other abnormal glucose Elevated liver enzymes Nonspecific elevation of levels of transaminase or lactic acid dehydrogenase (LDH) documented in this encounter Care Teams Dental Nurse Relationship Specialty Start Date End Date Haris Hoffman DO [facility] [place] [address] PCP - General FAMILY PRACTICE 05/09/19 documented as of this encounter
--- OUTSIDE RECORDS SUMMARY | 2024-07-02 06:32 | XMS_ITS | Encounter Summary ---
Author Organization [facility] Address [address] [place] [address]. [place] [address] Care Team Providers Care Tieing Machine Operator Name Role Phone Haris Hoffman DO Primary Care Provider + Reason for Visit * Reason Onset Date Comments Record Request 10/04/2023 Encounter Details Date Type Department Care Team (Late st Contact Info) Description 10/04/2023 Telephone [facility] Medical Group Family & Internal Medicine [phone] [place] [address] Haris Hoffman DO [address] [place] [address] Record Request Social History Tobacco [...] Progress Notes * Elizabeth Sánchez MA - 10/05/2023 8:54 AM CDT Received and sent to PCP * Elizabeth Sánchez MA - 10/04/2023 1:15 PM CDT I have faxed [facility] HIM for colonoscopy report documented in this encounter Plan of Treatment Upcoming Encounters Date Type Department Care Team (Late st Contact Info) Description 07/30/2024 8:40 AM CERTIFIED PHARMACY TECH Office Visit [facility] Medical Group Family & Internal Medicine - [address] [address] Haris Hoffman DO [facility][note 3][address] [place] [address] documented as of this encounter Visit Diagnoses Not on filedocumented in this encounter Care Teams Tieing Machine Operator Relationship Specialty Start Date End Date Haris Hoffman DO [address] [place] [address] PCP - General FAMILY PRACTICE 05/09/19 documented as of this encounter
--- OUTSIDE RECORDS SUMMARY | 2024-07-02 06:32 | XMS_ITS | Encounter Summary ---
Author Organization [facility] Address [address] [place] [address]. [place] [id number] [place] [address] Care Team Providers Care Water Well Driller Name Role Phone Haris Hoffman DO Primary Care Provider + Reason for Referral * Imaging (Routine) - Authorized Specialty Diagnoses / Procedures Referred By Contac t Referred To Contact RADIOLOGY Diagnoses Elevated liver enzymes Procedures US ABD LIMITED Haris Hoffman DO [address] [place] [address] Phone: tel: fax: [facility] [address] [facility] [address] [place] [address] Phone: tel: fax: Referral ID Status Reason Start Date Expiration Date V isits Requested Visits Authorized [id number] Authorized 10/03/2023 10/02/2024 1 1 Reason for Visit * Reason Comments Lab Results The blood was ordere d by his psychiatrist at lab cor[facility]. Patient has results on phone. Encounter Details Date Type Department Care Team (Late st Contact Info) Description 10/03/2023 9:00 AM CDT Office Visit [facility] Medical Group Family & Internal Medicine - [place] [address] [place] [address] Haris Hoffman DO [address] [place] [address] Lab Results (The blood was ordered by his psychiatrist at lab [facility]. Patient has results on phone. ) Social History Tobacco Use Types Packs/Day Years [...] Sign Reading Time Taken Comments Blood Pressure 128/86 10/03/2023 9:01 AM CDT Pulse 84 10/03/2023 9:01 AM CDT Temperature 36.3 ??C (97.3 ??F) 10/03/2023 9:01 AM CD T Respiratory Rate 16 10/03/2023 9:01 AM CDT Oxygen Saturation 98% 10/03/2023 9:01 AM CDT Inhaled Oxygen Concentration - - Weight 113.9 kg (251 lb) 10/03/2023 9:01 AM CDT Height 188 cm (6' 2 ) 10/03/2023 9:01 AM CDT Body Mass Index 32.23 10/03/2023 9:01 AM CDT documented in this encounter Progress Notes * Anika Clay MA - 10/03/2023 9:00 AM CDT 1. Are you allergic to eggs, chicken or chicken feathers? No 2. Do you currently have an illness or fever? No 3. Have you ever had an allergic reaction to the influenza vaccine? No 4. Do you have Guillain-Centereach Syndrome? No Flu vaccine administered in Right Deltoid. No flashback seen and no adverse reactions were observedwhile the patient was in the clinic. Pt left clinic in no acute distress. Verified by: TLL. * Haris P Yasmin, - 10/03/2023 9:00 AM CDT GENERAL OFFICE VISIT Encounter Date: 10/03/2023 Chief Complaint: 43-year-old male presents for Lab Results (The blood was ordered by his psychiatrist at lab [facility]. Patient has results on phone. ) HPI: Pt presents for abnormal lab results. From 09/27/23, formal results are not available, but pt has labs available on his phone. Pt's WBC was 16.5, platelets are 456, neutrophils are 11.9, lymphs 3.3, monocytes 1.0, non-fasting glucose was 100, alkaline phosphatase was 122, AST was 50, and ALT was 139. Pt was recently on methylprednisolone while she was having this lab drawn and had a sinus infection that is improving. Pt has had elevated liver enzymes previously. No other notable changes today. Patient presents for follow-up on HLD. Patient has had HLD for multiple years. Current medications include none; we are treating conservatively. Patient does need labs drawn. Review of Systems Constitutional: +night sweats but improving with propranolol Gastrointestinal: Negative for abdominal pain. Psychiatric/Behavioral: Negative for depression. Patient Active Problem List Diagnosis Mild episode of recurrent major depressive disorder (CMS/[facility]) BMI 30.0-30.9,adult Gastroesophageal reflux disease with esophagitis Recurrent sinus infections Attention deficit hyperactivity disorder (ADHD), unspecified ADHD type PTSD (post-traumatic stress disorder) ROSY (generalized anxiety disorder) Past Medical History: Diagnosis Date Back injury 2011 Depression Esophageal abnormality inflamed Past Surgical History: Procedure Laterality Date SPINAL FUSION 2012 L5-S1 Family History Problem Relation Name Age of Onset Diabetes Mother Heart Disease Mother Diabetes Brother Social History Socioeconomic History Marital status: Spouse name: Not on file Number of children: 4 Years of education: Not on file Highest education level: Not on file 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 amoxicillin-clavulanate (AUGMENTIN) 875-125 MG tablet Take 1 tablet (875 mg total) by mouth 2 (two)times daily. for 10 days buPROPion XL 150 MG 24 hr tablet Take 1 tablet (150 mg total) by mouth daily. Cholecalciferol (VITAMIN D-3 OR) Take 3,000 Units by mouth daily. eszopiclone (LUNESTA) 1 MG tablet Take 1 tablet (1 mg total) by mouth nightly at bedtime. at bedtime. lithium CR (LITHOBID) 450 MG tablet Take 600 mg by mouth nightly at bedtime. lurasidone (LATUDA) [...] capsule Take 1 capsule by mouth daily. amoxicillin-clavulanate (AUGMENTIN) 875-125 MG tablet Take 1 tablet (875 mg total) by mouth 2 (two)times daily. for 10 days buPROPion XL 150 MG 24 hr tablet Take 1 tablet (150 mg total) by mouth daily. Cholecalciferol (VITAMIN D-3 OR) Take 3,000 Units by mouth daily. eszopiclone (LUNESTA) 1 MG tablet Take 1 tablet (1 mg total) by mouth nightly at bedtime. at bedtime. lithium CR (LITHOBID) 450 MG tablet Take 600 mg by mouth nightly at bedtime. lurasidone (LATUDA) [...] indicates: No Known Allergies Objective: Filed Vitals: 10/03/23 0901 BP: 128/86 Pulse: 84 Resp: 16 Temp: 97.3 ??F (36.3 ??C) TempSrc: Skin SpO2: 98% Weight: 113.9 kg (251 lb) Height: 1.88 m (6' 2 ) Physical Exam Vitals and nursing note reviewed. HENT: Head: Normocephalic and atraumatic. Right Ear: External ear normal. Left Ear: External ear normal. Nose: Nose normal. Eyes: General: No scleral icterus. Conjunctiva/sclera: Conjunctivae normal. Cardiovascular: Rate and Rhythm: Normal rate and regular rhythm. Pulmonary: Effort: Pulmonary effort is normal. Skin: General: Skin is dry. Findings: No rash. Neurological: Mental Status: He is alert and oriented to person, place, and time. Psychiatric: Mood and Affect: Mood and affect normal. Assessment & Plan: David was seen today for lab results. Diagnoses and all orders for this visit: Elevated liver enzymes - HEPATIC FUNCTION PANEL; Future - US ABD LIMITED; Future Hyperlipidemia, unspecified hyperlipidemia type - LIPID PANEL; Future Leukocytosis, unspecified type - CBC W/DIFF AUTOMATED; Future BMI 32.0-32.9,adult Need for immunization against influenza - [52474] FLU VACC QUAD 6 MONTHS+ 0.5 ML (SINGLE DOSE SYRINGE FLUZONE, FLUARIX, FLULAVAL OR SINGLE DOSE VIAL FLUZONE) Discussion/Summary: Will recheck CBC, liver enzymes, and obtain lipid panel in 1 month; likely secondary to corticosteroid use. Will order liver ultrasound today. Continue f/u with psych. Will give flu shot today. Will have pt f/u in 1 year or sooner if needed depending upon these results. Pt v/u. Haris Hoffman DO documented in this encounter Plan of Treatment Upcoming Encounters Date Type Department Care Team (Late st Contact Info) Description 07/30/2024 8:40 AM LEAD RADIATION THERAPIST Office Visit [facility] Medical Group Family & Internal Medicine [address] [address] Haris Hoffman DO [address] [place] [address] Scheduled Orders Name Type Priority Associated Diagnoses Orde r Schedule US ABD LIMITED Ultrasound Routine Elevated liver enzymes Expected: 10/03/2023, Expires: 10/02/2024 documented as of this encounter Results * (ABNORMAL) CBC W/DIFF AUTOMATED (12/19/2023 2:24 PM CDT) WBC 15.55(H) 4.00 - 10.80 x10'3/uL 12/19/2023 8:00 PM CDT [facility] RBC 4.57 4.50 - 6.10 x10'6/uL 12/19/2023 8:00 PM CDT [facility] HGB 14.5 13.0 - 18.0 G/DL 12/19/2023 8:00 PM CDT [facility] HCT 42.4 37.0 - 52.0 % 12/19/2023 8:00 PM CDT [facility] MCV 92.8 78.0 - 100.0 FL 12/19/2023 8:00 PM CDT [facility] MCH 31.7(H) 27.0 - 31.0 PG 12/19/2023 8:00 PM CDT [facility] MCHC 34.2 33.0 - 36.0 G/DL 12/19/2023 8:00 PM CDT [facility] RDW 12.3 11.5 - 14.5 % 12/19/2023 8:00 PM CDT [facility] PLT 387(H) 150 - 350 x10'3/uL 12/19/2023 8:00 PM CDT [facility] MPV 9.2 7.4 - 10.4 FL 12/19/2023 8:00 PM CDT [facility] DIFFERENTIAL TYPE AUTOMATED DIFFERENTIAL 12/19/2023 8:00 PM CDT [facility] NEUTROPHILS % 69.1 % 12/19/2023 8:00 PM CDT [facility] LYMPHOCYTES % 21.8 % 12/19/2023 8:00 PM CDT [facility] MONOCYTES % 6.0 % 12/19/2023 8:00 PM CDT [facility] EOSINOPHILS % 2.4 % 12/19/2023 8:00 PM CDT [facility] BASOPHILS % 0.2 % 12/19/2023 8:00 PM CDT [facility] IMMATURE GRANS % 0.5 % 12/19/2023 8:00 PM CDT [facility] ABS. NEUTROPHILS 10.74(H) 1.60 - 8.30 x10'3/uL 12/19/2023 8:00 PM CDT [facility] ABS. LYMPHOCYTES 3.39 0.80 - 4.70 x10'3/uL 12/19/2023 8:00 PM CDT [facility] ABS. MONOCYTES 0.93 0.00 - 1.50 x10'3/uL 12/19/2023 8:00 PM CDT [facility] ABS. EOSINOPHILS 0.38 0.00 - 0.40 x10'3/uL 12/19/2023 8:00 PM CDT [facility] ABS. BASOPHILS 0.03 0.00 - 0.20 x10'3/uL 12/19/2023 8:00 PM CDT [facility] ABS. IMMATURE GRANULOCYTES 0.08(H) 0.00 - 0.03 x10'3/uL 12/19/2023 8:00 PM CDT [facility] 12/19/2023 2:24 PM CDT us Haris Hoffman DO LABORATORY Final Re sult [facility] [address] [place] [address], * (ABNORMAL) HEPATIC FUNCTION PANEL (12/19/2023 2:24 PM CDT) BILIRUBIN TOTAL S/P/B 0.9 0.2 - 1.0 MG/DL 12/19/2023 8:23 PM CDT [facility] BILIRUBIN DIRECT S/P/B 0.2 0.0 - 0.2 MG/DL 12/19/2023 8:23 PM CDT [facility] ALKALINE PHOSPHATASE S/P/B 91 45 - 115 U/L 12/19/2023 8:23 PM CDT [facility] AST 25 15 - 37 U/L 12/19/2023 8:23 PM CDT [facility] ALT 80(H) 16 - 63 U/L 12/19/2023 8:23 PM CDT [facility] TOTAL PROTEIN S/P/B 7.5 6.4 - 8.2 G/DL 12/19/2023 8:23 PM CDT [facility] ALBUMIN S/P/B 4.1 3.4 - 5.0 G/DL 12/19/2023 8:23 PM CDT [facility] 12/19/2023 2:24 PM CDT Haris Hoffman DO LABORATORY Final Re sult [facility] [address] [facility] [place] [address], [place] [phone] * (ABNORMAL) LIPID PANEL (12/19/2023 2:24 PM CDT) Pathologist [facility] CHOLESTEROL 171 <200 MG/DL 12/19/2023 8:23 PM CDT [facility] TRIGLYCERIDES 185(H) <150 MG/DL 12/19/2023 8:23 PM CDT [facility] HDL 43 >40 MG/DL 12/19/2023 8:23 PM CDT [facility] LDL-C 91 <100 MG/DL 12/19/2023 8:23 PM CDT [facility] VLDL CALCULATION 37(H) 5 - 28 MG/DL 12/19/2023 8:23 PM CDT [facility] CHOL/HDL RATIO 4.0 0.0 - 4.0 12/19/2023 8:23 PM CDT [facility] LDL/HDL 2.1 0.41 - 2.13 12/19/2023 8:23 PM CDT [facility] NON HDL CHOLESTEROL 128 <140 MG/DL 12/19/2023 8:23 PM CDT [facility] 12/19/2023 2:24 PM CDT Haris Hoffman DO LABORATORY Final Re sult [facility] [address] [place] [address], [place] [phone] documented in this encounter Visit Diagnoses Diagnosis Elevated liver enzymes- Primary Nonspecific elevation of levels of transaminase or lactic acid dehydrogenase (LDH) Hyperlipidemia, unspecified hyperlipidemia type Leukocytosis, unspecified type BMI 32.0-32.9,adult Body Mass Index 32.0-32.9, adult Need for immunization against influenza Need for prophylactic vaccination and inoculation against influenza documented in this encounter Care Teams Water Well Driller Relationship Specialty Start Date End Date Haris Hoffman DO [address] [place], [place] [id number] PCP - General FAMILY PRACTICE 05/09/19 documented as of this encounter
--- OUTSIDE RECORDS SUMMARY | 2024-07-02 06:32 | XMS_ITS | Encounter Summary ---
Author Organization [facility] Address [address] [place] [address]. [place], [place] [address] [place] [address] Care Team Providers Care Human Resource Professional Name Role Phone Haris Hoffman DO Primary Care Provider + Encounter Details Date Type Department Care Team (Latest Contact Info) Description 11/21/2021 - 11/21/2021 11:59 PM CDT Hospital Encounter [facility] [address] [place] [address] Haris Hoffman DO [address] [place] [address] Discharge Disposition: Home or Self Care (Routine Discharge) Social History Tobacco Use Types Packs/Day Years [...] AM CDT documented as of this encounter Medications at Time of Discharge ADDERALL XR 20 MG 24 hr capsule Take 1 capsule by mouth daily. 11/11/2021 buPROPion XL 150 MG 24 hr tablet Take 1 tablet (150 mg total) by mouth daily. 11/10/2021 Cholecalciferol (VITAMIN D-3 OR) Take 3,000 Units by mouth daily. venlafaxine XR 75 MG 24 hr capsule TAKE 1 CAPSULE BY MOUTH EVERY DAY WITH FOOD FOR 30 DAYS 11/01/2021 ARIPiprazole 5 MG tablet Take 1 tablet (5 mg total) by mouth daily. 11/10/2021 4 buPROPion XL 300 MG 24 hr tablet Take 1 tablet (300 mg total) by mouth daily. 11/10/2021 4 busPIRone 10 MG tablet TAKE 2 TABLETS BY MOUTH TWICE A DAY FOR 30 DAYS 10/15/2021 4 cyproheptadine 4 MG tablet Take 1 tablet (4 mg total) by mouth daily. 11/13/2021 4 gabapentin 300 MG capsule TAKE 1 CAPSULE BY MOUTH 2 TIMES A DAY NEEDED FOR ANXIETY FOR 30 DAYS 11/02/2021 4 naproxen 500 MG tabletIndications:L ateral epicondylitis of left elbow Take 1 tablet (500 mg total) by mouth 2 (two) times daily with meals. 60 tablet 11/16/2021 4 propranolol 20 MG tablet TAKE 1 TABLET BY MOUTH THREE TIMES A DAY FOR 30 DAYS 11/07/2021 4 venlafaxine XR 37.5 MG 24 hr capsule TAKE 1 CAPSULE BY MOUTH EVERY DAY WITH FOOD FOR 30 DAYS 10/21/2021 4 documented as of this encounter Plan of Treatment Upcoming Encounters Date Type Department Care Team (Late st Contact Info) Description 07/30/2024 8:40 AM HOT OILER Office Visit [facility] Medical Group Family & Internal Medicine [address] [address] Haris Hoffman, [address] [place] [address] documented as of this encounter Visit Diagnoses Not on filedocumented in this encounter Care Teams Human Resource Professional Relationship Specialty Start Date End Date Haris Hoffman DO [address] [place] [address] PCP - General FAMILY PRACTICE 05/09/19 documented as of this encounter
--- OUTSIDE RECORDS SUMMARY | 2024-07-02 06:32 | XMS_ITS | Encounter Summary ---
Author Organization [facility] Address [address] [place] [address]. [place] [address] Care Team Providers Care Occupational Safety And Health Manager Name Role Phone Haris Hoffman DO Primary Care Provider + Reason for Visit * Reason Onset Date Comments Radiology Results 01/15/2024 Encounter Details Date Type Department Care Team (Late st Contact Info) Description 01/15/2024 Telephone [facility] Medical Group Family & Internal Medicine [place] [phone] [place] [phone] Haris Hoffman DO [address] [place] [address] Radiology Results Social History Tobacco Use Types Packs/Day [...] as of this encounter Progress Notes * Kendall Resendiz MA - 01/22/2024 7:40 AM CDTAddended by: KENDALL RESENDIZ on: 01/22/2024 07:40 AM Modules accepted: Orders * Kendall Resendiz MA - 01/22/2024 7:39 AM CDT [employer] message sent to pt with results and recommendations. Referral pended for Dr. Gupta, awaiting pt's preference. * Paula Love MA - 01/18/2024 1:43 PM CDT LMTRC on vm * Abi Brantley RN - 01/16/2024 9:09 AM CDT Attempted to call the patient, was unable to reach them at this time. Not able to leave a message because there was no voicemail box set up. Will attempt again at a later time. LL-01/16/24 * Haris Hoffman DO - 01/15/2024 3:24 PM CDT Please let pt know we have the results of his CT scan of his sinuses from 01/09/24. It does show some septal deviation of mucosal changes in the right ethmoid sinus. Recommend seeing ENT for these findings. documented in this encounter Plan of Treatment Upcoming Encounters Date Type Department Care Team (Late st Contact Info) Description 07/30/2024 8:40 AM FRUIT GRADING SUPERVISOR Office Visit [facility] Medical Group Family & Internal Medicine - [place] [id number] [place] [address] Haris Hoffman DO [address] [place] [address] documented as of this encounter Visit Diagnoses Diagnosis Deviated septum- Primary Deviated nasal septum Ethmoid sinusitis, unspecified chronicity documented in this encounter Care Teams Occupational Safety And Health Manager Relationship Specialty Start Date End Date Haris Hoffman DO [address] [place] [address] PCP - General FAMILY PRACTICE 05/09/19 documented as of this encounter
--- OUTSIDE RECORDS SUMMARY | 2024-07-02 06:32 | XMS_ITS | Encounter Summary ---
Author Organization [facility] Address [address] [facility] [place] [address] Care Team Providers Care Leather Stretcher Name Role Phone Haris Hoffman DO Primary Care Provider + Reason for Visit * Reason Comments Sinusitis Ear Pain Encounter Details Date Type Department Care Team (Latest Contact Info) Description 07/28/2019 6:00 PM MEDICAL DIRECTOR Office Visit [facility] AT [address] [phone] Provider, Earnestine Exp Nameoki Other non-recurrent acute nonsuppurative otitis media of right ear (Primary Dx) Social History Tobacco Use Types Packs/Day Years Used Date Smoking Tobacco: Never Smokeless Tobacco: Never Sex and Gender Information Value Date Recorded Sex Assigned at Not on file Gender Identity Not on file Sexual Orientation Not on file documented as of this encounter Last Filed Vital Signs Vital Sign Reading Time Taken Comments Blood Pressure 120/78 07/28/2019 5:46 PM MEDICAL DIRECTOR Pulse 81 07/28/2019 5:46 PM MEDICAL DIRECTOR Temperature 37.1 ??C (98.8 ??F) 07/28/2019 5:46 PM CS T Respiratory Rate 16 07/28/2019 5:46 PM MEDICAL DIRECTOR Oxygen Saturation 99% 07/28/2019 5:46 PM MEDICAL DIRECTOR Inhaled Oxygen Concentration - - Weight 111.1 kg (245 lb) 07/28/2019 5:46 PM MEDICAL DIRECTOR Height 188 cm (6' 2 ) 07/28/2019 5:46 PM MEDICAL DIRECTOR Body Mass Index 31.46 07/28/2019 5:46 PM MEDICAL DIRECTOR documented in this encounter Patient Instructions * Patient Instructions* Mary Castellanos, CHAIN PERSON-JEWELRY SORTER - 07/28/2019 5:51 PM MEDICAL DIRECTOR Images from the original note were not included. It could take up to 12 weeks for the fluid behind your ear drum(s) to clear. If symptoms remain beyond 12 weeks, seek an evaluation from ENT. Applying a warm pack to the affected area may help with the discomfort. Do not place Q-Tips or other objects into ear canal Do not use OTC ear drops without consulting with your healthcare provider. May take Tylenol or Ibuprofen for fever or pain as directed per package instructions. May take OTC antihistamines such as Zyrtec, Shannon, or Claritin as directed per package instructions for allergy relief Recommend daily use of Flonase or Nasonex, as directed per package instructions Reviewed education materials and instructions with patient and answered all questions. David Rider verbalized understanding and agrees with plan. Follow up with Haris Hoffman, DO if symptoms worsen or do not completely resolve. Patient Education Ear Infection CHARGE RN: An ear infection is also called otitis media. An ear infection may be caused by blocked or swollen eustachian tubes. Eustachian tubes connect the middle ear to the back of the nose and throat. They drain fluid from the middle ear. With an ear infection, fluid builds up and is infected by germs. Thegerms grow easily in fluid trapped behind the eardrum. Common symptoms include the following: ?? Ear pain ?? Fever or a headache ?? Trouble hearing ?? Ringing or buzzing in your ear ?? Plugged ear or an ear that feels full ?? Dizziness ?? Nausea or vomiting Call 911 or have someone call 911 for the following: ?? You have a seizure. Seek immediate care for the following symptoms: ?? You have a fever and a stiff neck. Contact your healthcare provider if: ?? Your ear pain gets worse or does not go away, even after treatment. ?? The outside of your ear is red or swollen. ?? You are vomiting or have diarrhea. ?? You have fluid coming from your ear. ?? You have questions or concerns about your condition or care. Medicines: You may need any of the following: [...] the medicine label and follow directions. ?? Ear drops help treat your ear pain. ?? Antibiotics help treat a bacterial infection that caused your ear infection. ?? Take your medicine as directed. [...] with you in case of an emergency. Manage your symptoms: ?? Apply heat on your ear for 15 to 20 minutes, 3 to 4 times a day or as directed. Heat helps decrease pain. ?? Apply ice on your ear for 15 to 20 minutes, 3 to 4 times a day for 2 days or as directed. Use anice pack, or put crushed ice in a plastic bag. Cover it with a towel before you apply it to your ear. Ice decreases swelling and pain. Prevent an ear infection: ?? Wash your hands often. Use soap and water. Wash your hands after you use the bathroom, change a child's diapers, or sneeze. Wash your hands before you prepare or eat food. ?? Stay away from people who are ill. Some germs are easily and quickly spread through contact. Follow up with your healthcare provider as directed: Write down your questions so you remember to ask them during your visits. ?? Copyright [employer] 2018 Information is for End User's use only and may not be sold, redistributed or otherwise used for commercial purposes. All illustrations and images included in CareNotes?? are the copyrighted property of [employer]. or [employer] The above information is an forestry fire aid only. It is not intended as medical advice for individual conditions or treatments. Talk to your doctor, nurse or pharmacist before following any medical regimen to see if it is safe and effective for you. CAL DIRECTOR documented in this encounter Progress Notes * Mary Castellanos APRN-CNP - 07/28/2019 5:48 PM CST Subjective: David Rider is a 38 year old male who presents to the clinic today for Chief Complaint Patient presents with ??? Sinusitis ??? Ear Pain . Primary Care Physician is Haris Hoffman DO. Symptoms include ear pain right, plugged sensation right and congestion. Onset of symptoms was 4 days ago, gradually worsening since that time. He Has also reported the following symptoms: congestion, right ear pressure/pain, vertigo, no fever, and is drinking plenty of fluids.. The pain is described as dull, aching and pressure, and is 5/10 in intensity. OTC- None. Sick Contacts: No known sick contacts. Past Medical History: Diagnosis Date ??? Anxiety and depression No family history on file. Current Outpatient Medications Medication Sig Dispense Refill ??? amoxicillin-clavulanate (AUGMENTIN) 875-125 MG tablet Take 1 tablet by mouth 2 times daily withmorning and evening meal for 10 days 20 tablet 0 ??? BuPROPion HCl (WELLBUTRIN PO) ??? Cholecalciferol (VITAMIN D PO) ??? CITALOPRAM HYDROBROMIDE PO ??? fluticasone propionate (FLONASE ALLERGY RELIEF) 50 MCG/ACT nasal spray [place] 2 sprays into eachnostril once daily Reasons: [...] file Gets together: Not on file Attends restorationist service: Not on file Active member of [...] nose, mouth, and throat: Positive for earaches on right, sinus trouble Respiratory: Negative for acute cough Cardiovascular: Negative Hematologic/lymphatic: Negative for fever, night sweats, chills Objective: BP 120/78 Pulse 81 Temp 98.8 ??F (37.1 ??C) Resp 16 Ht 1.88 m (6' 2 ) Wt 111.1 kg (245 lb) SpO2 99%BMI 31.46 kg/m2 Exam General appearance: alert, cooperative, no distress, oriented to person, place, and time Head: normocephalic, without trauma Eyes: sclera and conjunctiva clear, EOMI and PERRLA, lids normal Ears: Right TM - erythematous, air/fluid interface visualized, scarring noted and cloudy fluid. Left TM- scarring noted Nose: maxillary tenderness on right Throat: no mucous membrane abnormalities Neck: supple Nodes: no parotid, cervical, pre-auricular, post-auricular adenopathy. Discomfrot with palpation ofthe pre-auricular node on the right Lungs: breath sounds normal and symmetric; no rales or wheezes Heart: regular rhythm, normal S1 and S2, without murmurs, gallops or rubs Assessment: Encounter Diagnosis Name Primary? Other non-recurrent acute nonsuppurative otitis media of right ear Yes Plan: Take all medication as prescribed. Keep ear canal free from water Do not place Q-Tips or other objects into ear canal Do not use OTC ear drops without consulting with your healthcare provider. May take Tylenol or Ibuprofen for fever or pain as directed per package instructions. Use an alternate method of control while taking antibiotic and one week after, if applicable. Reviewed education materials and instructions with patient and answered all questions. David Rider verbalized understanding and agrees with plan. Follow up with Haris Hoffman DO if symptoms worsen or do not completely resolve. GO TO THE ER WITH ANY NEW ONSET OF FEVER, PAIN BEHIND THE EAR AND/OR REDNESS OVER THE BONE BEHIND THE EAR, OR SWELLING OF THE EXTERNAL EAR AND/OR EXTERNAL EAR APPEARING TO BE DISPLACED DOWNWARD. THESE ARE ALL SIGNS OF A SERIOUS COMPLICATION AND REQUIRES IMMEDIATE ATTENTION. Orders Placed This Encounter ??? amoxicillin-clavulanate (AUGMENTIN) 875-125 MG tablet Sig: Take 1 tablet by mouth 2 times daily with morning and evening meal for 10 days Dispense: 20 tablet Refill: 0 DINORA De León 07/28/2019 6:00 PM CAL DIRECTOR documented in this encounter Plan of Treatment Not on file documented as of this encounter Visit Diagnoses Diagnosis Other non-recurrent acute nonsuppurative otitis media of right ear- Primary documented in this encounter Care Teams Leather Stretcher Relationship Specialty Start Date End Date Haris Hoffman DO PCP - General 05/23/19 documented as of this encounter
--- OUTSIDE RECORDS SUMMARY | 2024-07-02 06:33 | XMS_ITS | Encounter Summary ---
Author Organization [facility] Address [address] [place] [address]. [place], [place] [address] [place] [address] Care Team Providers Care Improvement Coordinator Name Role Phone Haris Hoffman DO Primary Care Provider + Encounter Details Date Type Department Care Team (Latest Contact Info) Description 05/09/2019 Scan HEALTH INFO SRVCS Scanned, Documents Social [...] st Contact Info) Description 07/30/2024 8:40 AM PRESS TECHNICIAN Office Visit [facility] Family & Internal Medicine [address] [phone] Haris Hoffman DO [address] [place] [address] documented as of this encounter Visit Diagnoses Not on filedocumented in this encounter Care Teams Improvement Coordinator Relationship Specialty Start Date End Date Haris Hoffman DO [address] [place] [address] PCP - General FAMILY PRACTICE 05/09/19 documented as of this encounter
--- OUTSIDE RECORDS SUMMARY | 2024-07-02 06:33 | XMS_ITS | Encounter Summary ---
Author Organization [facility] Address [address] [place] [address]. [place] [address] Care Team Providers Care Laser Beam Trim Operator Name Role Phone Haris Hoffman DO Primary Care Provider + Reason for Visit * Reason Onset Date Comments Referral 09/12/2019 Encounter Details Date Type Department Care Team (Late st Contact Info) Description 09/12/2019 Telephone [facility] Family & Internal Medicine [facility] [address] [place] [address] Haris Hoffman DO [address] [place] [address] Referral Social History Tobacco Use Types Packs/Day Years [...] as of this encounter Progress Notes * Laurence Horton MA - 09/16/2019 8:56 AM CST Records request faxed to [facility] F: [phone] SHING WHEEL SETTER * Lola Garza RN - 09/16/2019 8:43 AM CST Patient went to [facility] ENT yesterday and has a follow up on Sunday. SHING WHEEL SETTER * Lola Garza RN - 09/15/2019 9:17 AM CST [facility] 09/15/19 SHING WHEEL SETTER * Laurence Horton MA - 09/12/2019 3:08 PM CST 09-12-19 LMT[facility] checking on pt ENT referral if pt when, who he saw, need to obtain notes, can direct call Laurence SHING WHEEL SETTER documented in this encounter Plan of Treatment Upcoming Encounters Date Type Department Care Team (Late st Contact Info) Description 07/30/2024 8:40 AM POLISHING WHEEL SETTER Office Visit [facility] Medical [facility] Family & Internal Medicine - [id number] [place] [address] Haris Hoffman DO [address] [place] [address] documented as of this encounter Visit Diagnoses Not on filedocumented in this encounter Care Teams Laser Beam Trim Operator Relationship Specialty Start Date End Date Haris Hoffman DO [facility] [place] [address] PCP - General FAMILY PRACTICE 05/09/19 documented as of this encounter
--- OUTSIDE RECORDS SUMMARY | 2024-07-02 06:33 | XMS_ITS | Encounter Summary ---
Author Organization [facility] Address [address] [place] [address]. [place], [place] [phone] [place] [address] Care Team Providers Care Switch Inspector Name Role Phone Unavailable Primary Care Provider Unavailabl e Encounter Details Date Type Department Care Team (Late st Contact Info) Description 10/29/2007 [facility] [address] [place] [address] Mike Wheeler MD Social History Tobacco Use Types Packs/Day Years Used Date Smoking Tobacco: Never Assessed Sex and Gender Information Value Date Recorded Sex Assigned at Not on file Legal Sex Male 7:17 PM CDT Gender Identity Not on file Sexual Orientation Not on file documented as of this encounter Plan of Treatment Upcoming Encounters Date Type Department Care Team (Late st Contact Info) Description 07/30/2024 8:40 AM MUSIC BOX MECHANIC Office Visit [facility] Family & Internal Medicine [facility] [address] [place] [address] Haris Hoffman DO [address] [place] [address] documented as of this encounter Visit Diagnoses Not on filedocumented in this encounter
--- OUTSIDE RECORDS SUMMARY | 2024-07-02 06:33 | XMS_ITS | Encounter Summary ---
Author Organization [facility] Address [address] [place] [address]. [place], [place] [id number] [place] [address] Care Team Providers Care Final Inspector Truck Trailer Name Role Phone Haris Hoffman DO Primary Care Provider + Encounter Details Date Type Department Care Team (Latest Contact Info) Description 05/19/2019 Scan HEALTH INFO SRVCS Scanned, Documents Social [...] st Contact Info) Description 07/30/2024 8:40 AM EXERCISER Office Visit [facility] Medical Group Family & Internal Medicine [address] [phone] Haris Hoffman DO [address] [place] [address] documented as of this encounter Visit Diagnoses Not on filedocumented in this encounter Care Teams Final Inspector Truck Trailer Relationship Specialty Start Date End Date Haris Hoffman DO [address] [place] [address] PCP - General FAMILY PRACTICE 05/09/19 documented as of this encounter
--- OUTSIDE RECORDS SUMMARY | 2024-07-02 06:33 | XMS_ITS | Encounter Summary ---
Author Organization [facility] Address [address] [place] [address]. [place], [place] [address] [place] [address] Care Team Providers Care Labor Arbitrator Name Role Phone Haris Hoffman DO Primary Care Provider + Encounter Details Date Type Department Care Team (Latest Contact Info) Description 05/29/2019 Scan HEALTH INFO SRVCS Scanned, Documents Social [...] st Contact Info) Description 07/30/2024 8:40 AM PLATE CLEANER Office Visit [facility] Medical Group Family & Internal Medicine [address] [phone] Haris Hoffman DO [address] [place] [address] documented as of this encounter Visit Diagnoses Not on filedocumented in this encounter Care Teams Labor Arbitrator Relationship Specialty Start Date End Date Haris Hoffman DO [address] [place] [address] PCP - General FAMILY PRACTICE 05/09/19 documented as of this encounter
--- OUTSIDE RECORDS SUMMARY | 2024-07-02 06:33 | XMS_ITS | Encounter Summary ---
Author Organization [facility] Address [address] [place] [address]. [place], [place] [address] [place] [address] Care Team Providers Care Passenger Booking Clerk Name Role Phone Haris Hoffman DO Primary Care Provider + Reason for Visit * Reason Comments Follow Up Depression Patient has recently had an increase of anxiety and fatigue. Patient notices that he has ups and downs with mood and wanted to talk further about this Encounter Details Date Type Department Care Team (Late st Contact Info) Description 05/23/2019 9:40 AM DISTANCE EDUCATION TEACHER Office Visit [facility] Family & Internal Medicine [address] [phone] Haris Hoffman DO [address] [place] [phone] Follow Up; Depression (Patient has recently had an increase of anxiety and fatigue. Patient notices that he has ups and downs with mood and wanted to talk further about this) Social History Tobacco Use Types Packs/Day Years Used Date Smoking Tobacco: Never Smokeless Tobacco: Never Alcohol Use Standard Drinks/Week Comments Yes 0 (1 standard drink = 0.6 oz pur e alcohol) AUDIT-C Answer Date Recorded Frequency of Alcohol Consumption Monthly or less 05/09/2019 Average Number of Drinks 1 or 2 019 Frequency of Binge Drinking Not on file 04/16 Sex and Gender Information Value Date Recorded [...] Sign Reading Time Taken Comments Blood Pressure 132/70 05/23/2019 9:31 AM DISTANCE EDUCATION TEACHER Pulse 83 05/23/2019 9:31 AM DISTANCE EDUCATION TEACHER Temperature 36.4 ??C (97.5 ??F) 05/23/2019 9:31 AM CS T Respiratory Rate 14 05/23/2019 9:31 AM DISTANCE EDUCATION TEACHER Oxygen Saturation 99% 05/23/2019 9:31 AM DISTANCE EDUCATION TEACHER Inhaled Oxygen Concentration - - Weight 109.5 kg (241 lb 8 oz) 05/23/2019 9:31 AM DISTANCE EDUCATION TEACHER Height 188 cm (6' 2 ) 05/23/2019 9:31 AM DISTANCE EDUCATION TEACHER Body Mass Index 31.01 05/23/2019 9:31 AM DISTANCE EDUCATION TEACHER documented in this encounter Progress Notes * Haris Hoffman, DO - 05/23/2019 9:40 AM CST Images from the original note were not included. GENERAL OFFICE VISIT Encounter Date: 05/23/2019 Chief Complaint: 38-year-old male presents for Follow Up and Depression (Patient has recently had an increase of anxiety and fatigue. Patient notices that he has ups and downs with mood and wanted to talk further about this) HPI: Pt presents for discussion of depression/anxiety. He is currently on citalopram and bupropion XL. His last adjustment was to the Wellbutrin about 6 years ago. He states he'll have episodes of about 6weekswhere he is doing well, and then about 6 weeks of having bigger issues. He states those 6 weeks are almost sensory where noises bother him more, he'll want to jump out of [his] skin. He denies manic episodes, but does admit to episodes where he'll have more racing thoughts and he'll sometimes not need as much sleep. He waffles between stating that he'll be more distractible but seems more goal-oriented. These can overlap with his depressive episodes as well. Review of Systems Psychiatric/Behavioral: See HPI Patient Active Problem List Diagnosis ??? Mild episode of recurrent major depressive disorder (CMS/HCC) ??? BMI 30.0-30.9,adult ??? Gastroesophageal reflux disease with esophagitis ??? Recurrent sinus infections Past Medical History: Diagnosis Date ??? Back injury 2011 ??? Depression ??? 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 Financial resource strain: Not on file ??? Food insecurity: Worry: Not on file Inability: Not on file ??? Transportation needs: Medical: Not on file Non-medical: Not on file Tobacco Use ??? Smoking status: Never Smoker ??? Smokeless tobacco: Never Used Substance and Sexual Activity ??? Alcohol use: Yes Frequency: Monthly or less Drinks per session: 1 or 2 ??? Drug use: No ??? Sexual activity: Not on file Lifestyle ??? Physical activity: Days per week: Not on file Minutes per session: Not on file ??? Stress: Not on file Relationships ??? Social connections: Talks on phone: Not on file Gets together: Not on file Attends scientology service: Not on file Active member of [...] Social History Narrative ??? Not on file There is no immunization history on file for this patient. Current Outpatient Medications Medication Sig Dispense Refill ??? buPROPion XL (WELLBUTRIN XL) 300 MG 24 hr tablet Take 1 tablet (300 mg total) by mouth daily for 30 days. 30 tablet 5 ??? Cholecalciferol (VITAMIN D-3 OR) Take 3,000 Units by mouth daily. ??? citalopram 40 MG tablet Take 1 tablet (40 mg total) by mouth daily. 90 tablet 3 No current facility-administered medications for this visit. Current Outpatient Medications on File Prior to Visit Medication Sig ??? Cholecalciferol (VITAMIN D-3 OR) Take 3,000 Units by mouth daily. ??? citalopram 40 MG tablet Take 1 tablet (40 mg total) by mouth daily. No current facility-administered medications on file prior to visit. No Known Allergies Objective: Filed Vitals: 05/23/19 0931 BP: 132/70 Pulse: 83 Resp: 14 Temp: 97.5 ??F (36.4 ??C) TempSrc: Oral SpO2: 99% Weight: 109.5 kg (241 lb 8 oz) Height: 6' 2 (1.88 m) Physical Exam Constitutional: He is well-developed, well-nourished, and in no distress. HENT: Head: Normocephalic and atraumatic. Right Ear: External ear normal. Left Ear: External ear normal. Eyes: Conjunctivae are normal. Cardiovascular: Normal rate, regular rhythm and normal heart sounds. Exam reveals no gallop and no friction rub. No murmur heard. Pulmonary/Chest: Effort normal and breath sounds normal. No respiratory distress. He has no wheezes. He has no rales. Abdominal: Soft. Bowel sounds are normal. There is no tenderness. Nursing note and vitals reviewed. Assessment & Plan: David was seen today for follow up and depression. Diagnoses and all orders for this visit: Mild episode of recurrent major depressive disorder (CMS/HCC) - buPROPion XL (WELLBUTRIN XL) 300 MG 24 hr tablet; Take 1 tablet (300 mg total) by mouth daily for30 days. Discussion/Summary: Will increase wellbutrin to 300 mg daily. Consider bipolar depression in future if not improving adequately. Will have pt f/u in 1.5-2 months. Pt v/u. Time Spent: Approximately 25 minutes was spent in direct patient consultation and the majority of that time (>50%) was spent on counseling and coordination of care. Haris Hoffman DO ANCE EDUCATION TEACHER documented in this encounter Plan of Treatment Upcoming Encounters Date Type Department Care Team (Late st Contact Info) Description 07/30/2024 8:40 AM DISTANCE EDUCATION TEACHER Office Visit [facility] Family & Internal Medicine [address] [phone] Haris Hoffman DO [address] [place] [address] documented as of this encounter Visit Diagnoses Diagnosis Mild episode of recurrent major depressive disorder (CMS/HCC)- Primary documented in this encounter Care Teams Passenger Booking Clerk Relationship Specialty Start Date End Date Haris Hoffman DO [address] [place] [address] PCP - General FAMILY PRACTICE 05/09/19 documented as of this encounter
--- OUTSIDE RECORDS SUMMARY | 2024-07-02 06:33 | XMS_ITS | Encounter Summary ---
Author Organization [facility] Address [address] [place] [address]. [place], [place] [phone] [place] [address] Care Team Providers Care Grinder Needle Tip Name Role Phone Haris Hoffman DO Primary Care Provider + Encounter Details Date Type Department Care Team (Latest Contact Info) Description 09/15/2019 Scan HEALTH INFO SRVCS Scanned, Documents Social [...] st Contact Info) Description 07/30/2024 8:40 AM PETROLEUM REFINING FIRER Office Visit [facility] Medical Group Family & Internal Medicine [address] [phone] Haris Hoffman DO [address] [place] [address] documented as of this encounter Visit Diagnoses Not on filedocumented in this encounter Care Teams Grinder Needle Tip Relationship Specialty Start Date End Date Haris Hoffman DO [address] [place] [address] PCP - General FAMILY PRACTICE 05/09/19 documented as of this encounter
--- OUTSIDE RECORDS SUMMARY | 2024-07-02 06:33 | XMS_ITS | Encounter Summary ---
Author Organization [facility] Address [address] [place] [address]. [place], [place] [id number] [place] [address] Care Team Providers Care Brine Tank Separator Operator Name Role Phone Haris Hoffman DO Primary Care Provider + Reason for Visit * Reason Comments Colonoscopy Report (SCAN) Encounter Details Date Type Department Care Team ([facility] Contact Info) Description 10/18/2018 Scan HEALTH INFO [facility] Scanned, Doc Med Group Colonoscopy Report (SCAN) Social History Tobacco Use Types Packs/Day Years Used Date Smoking Tobacco: Never Assessed AUDIT-C Answer Date Recorded Frequency of Alcohol [...] Upcoming Encounters Date Type Department Care Team ([facility] Contact Info) Description 07/30/2024 8:40 AM CREDIT COLLECTIONS SPECIALIST Office Visit [facility] Family & Internal Medicine [address] [phone] Haris Hoffman DO [address] [place] [address] documented as of this encounter Procedures Procedure Name Priority Date/Time Associated Diagnosis Comments COLONOSCOPY GENERIC (SCAN ORDER) 10/18/2018 documented in this encounter Results * COLONOSCOPY GENERIC (SCAN ORDER) (10/18/2018) 10/18/2018 us Doc Med Group Scanned SCANNING Final Resu lt documented in this encounter Visit Diagnoses Not on filedocumented in this encounter Care Teams Brine Tank Separator Operator Relationship Specialty Start Date End Date Haris Hoffman DO [address] [place] [address] PCP - General FAMILY PRACTICE 05/09/19 documented as of this encounter
--- OUTSIDE RECORDS SUMMARY | 2024-07-02 06:33 | XMS_ITS | Encounter Summary ---
Author Organization [facility] Address [address] [place] [address]. [place], [place] [id number] [place] [address] Care Team Providers Care Surgery Manager Name Role Phone Haris Hoffman DO Primary Care Provider + Reason for Referral * Consultation (Routine) - Closed Specialty Diagnoses / Procedures Referred By Contac t Referred To Contact OTOLARYNGOLOGY Diagnoses Recurrent sinus infections Haris Hoffman DO [address] [place] [address] Phone: tel: fax: [address] [place] [address] Phone: tel: fax: Referral ID Status Reason Start Date Expiration Date Visits Re quested Visits Authorized [id number] Closed 05/09/2019 06/07/2020 99 99 Reason for Visit * Reason Comments Establish Care Encounter Details Date Type Department Care Team (Late st Contact Info) Description 05/09/2019 9:00 AM CDT Office Visit [facility] Medical Group Family & Internal Medicine [facility] [address] [place] [address] Haris Hoffman DO [address] [place] [address] Establish Care Social History Tobacco Use Types Packs/Day [...] Sign Reading Time Taken Comments Blood Pressure 118/68 05/09/2019 9:18 AM CDT Pulse 76 05/09/2019 9:18 AM CDT Temperature 37 ??C (98.6 ??F) 05/09/2019 9:18 AM CDT Respiratory Rate 16 05/09/2019 9:18 AM CDT Oxygen Saturation 98% 05/09/2019 9:18 AM CDT Inhaled Oxygen Concentration - - Weight 107.6 kg (237 lb 4 oz) 05/09/2019 9:18 AM CDT Height 188 cm (6' 2 ) 05/09/2019 9:18 AM CDT Body Mass Index 30.46 05/09/2019 9:18 AM CDT documented in this encounter Patient Instructions * Patient Instructions* Haris Hoffman, - 05/09/2019 9:00 AM CDT Images from the original note were not included. Patient Education Patient Education Acid Reflux (Gastroesophageal Reflux Disease) Discharge Instructions, Adult About this topic GERD stands for gastroesophageal reflux disease. It is sometimes just called reflux. Normally, foodgoes from the mouth through the food pipe and then into the belly. The food pipe is also called theesophagus. This condition happens when the contents of the belly leak into the food pipe. This leaking can irritate the food pipe. You may feel a burning pain in your chest called heartburn. You may have burping, bloating, and belly pain after eating. GERD can be treated in many different ways. Sometimes, doctors use drugs or suggest changes in lifestyle. Other times, diet changes or surgery is needed. What care is needed at home? ?? Ask your doctor what you need to do when you go home. Make sure you ask questions if you do not understand what the doctor says. This way you will know what you need to do. ?? Maintain a healthy weight. ?? Avoid stress. ?? Avoid belts and clothes that are too tight. ?? Eat small meals more often. Do not skip meals. Do not eat large meals to make up for missed meals. ?? Avoid eating 2 to 3 hours before bedtime. ?? Do not to lie down for at least 2 hours after eating. ?? Raise the head of your bed 6 to 8 inches (15 to 20 cm). Use wooden blocks under the head of the bed. Just sleeping with your head raised on pillows is not enough. It can cause discomfort and make your signs worse. ?? Do not drink beer, wine, and mixed drinks (alcohol). ?? Do not smoke. What follow-up care is needed? Your doctor may ask you to make visits to the office to check on your progress. Be sure to keep these visits. What drugs may be needed? The doctor may order drugs to: ?? Relieve heartburn ?? Prevent reflux ?? Lessen acid production ?? Heal the esophageal lining Will physical activity be limited? Your physical activities will not be limited. What changes to diet are needed? ?? Limit caffeine intake. ?? Avoid eating oranges, berries, tomatoes, and other foods high in acid. ?? Eat only small amounts of spicy, fatty, and fried foods, or avoid them altogether. ?? Keep track of the foods that cause your signs to become worse. Avoid or limit these food items. What problems could happen? ?? Asthma ?? Precancerous changes in the food pipe ?? Long-term cough ?? Dental problems ?? Higher risk of cancer of the food pipe. This is esophageal cancer. ?? Narrowing of the food pipe. This is a stricture. ?? Open sore in the food pipe. This is an ulcer. When do I need to call the doctor? ?? Pain or a feeling of food getting stuck in your throat ?? Frequent throwing up or throwing up fluid that looks like blood or coffee grounds ?? Pain in the chest or upper part of the belly ?? Very bad heartburn that lasts for a long time ?? Cough, hoarseness of voice, or bad breath ?? Wheezing, shortness of breath or other problems breathing ?? Unintended weight loss or not wanting to eat ?? You are not feeling better in 2 to 3 days or you are feeling worse Teach Back: Helping You Understand The Teach Back Method helps you understand the information we are giving you. The idea is simple. After talking with the staff, tell them in your own words what you were just told. This helps to makesure the staff has covered each thing clearly. It also helps to explain things that may have been abit confusing. Before going home, make sure you are able to do these: ?? I can tell you about my condition. ?? I can tell you what changes I need to make with my eating habits to ease the reflux. ?? I can tell you what I will do if I am throwing up fluid that looks like blood or coffee grounds. Where can I learn more? [place] [employer] https://familydoctor.org/condition/refluxacid-reflux/ NHS Choices https://www.nhs.uk/conditions/feghqiywh-gzd-gbfa-reflux/ Last Reviewed Date 2018-08-20 Consumer Information Use and Disclaimer This information is not specific medical advice and does not replace information you receive from your health care provider. This is only a brief summary of general information. It does NOT include all information about conditions, illnesses, injuries, tests, procedures, treatments, therapies, discharge instructions or life-style choices that may apply to you. You must talk with your health care provider for complete information about your health and treatment options. This information should not be used to decide whether or not to accept your health care provider???s advice, instructions or recommendations. Only your health care provider has the knowledge and training to provide advice that is right for you. Copyright Copyright ?? 2019 [employer] and its affiliates and/or licensors. All rights reserved. Patient Education Patient Education Ulcer and Gastritis Diet About this topic Ulcers and gastritis are stomach problems that cause pain or burning in your belly. This diet is made up of foods that are not likely to upset your stomach or bowels. What will the results be? Food cannot cause you to have an ulcer, but they can make your signs worse or slow your healing. The food on this diet may help your belly pain. What changes to diet are needed? ?? Eat small meals more often during the day. ?? Try to eat more fruits, vegetables, and whole grains. These will help you get more fiber and nutrients, like vitamin C, that may help with healing. ?? Stay away from spicy or seasoned foods. These may make your signs worse. ?? Eat slowly and chew your food carefully. ?? Drink fluids slowly. ?? Do not eat for at least 2 hours before going to bed. Who should use this diet? People with ulcers, heartburn, or gastritis should eat this diet. What foods are good to eat? ?? Low-fat milk and other dairy products ?? Dark leafy greens like spinach and kale ?? Vegetables like carrots, broccoli, and sweet potatoes ?? Fruit and vegetable juices like apple and cranberry juice ?? Fruits like apples, strawberries, and blueberries ?? Whole grain breads, crackers, and pasta ?? Hot cereals like oatmeal or cream of wheat ?? Lean, tender meats that are steamed, baked, or grilled with no added fat ?? Creamy peanut butter ?? Pudding and custard ?? Eggs ?? Tofu ?? Soup and broth What foods should be limited or avoided? You do not need to avoid acidic foods like tomatoes, oranges, pickles, sauerkraut, or hot chiles, but these foods may cause more belly pain or burning. If you have pain after eating a certain food, avoid that food. ?? Fatty dairy foods ?? Spices that may cause pain or burning like black pepper, red pepper, and chili powder ?? Caffeine and drinks like cola, tea, and coffee ?? Decaffeinated coffee and tea ?? Fatty and fried foods ?? Chocolate ?? Beer, wine, and mixed drinks (alcohol) ?? It is not necessary to avoid acidic foods, but eating these foods may cause discomfort. If you have pain after eating a certain food, avoid that food. When do I need to call the doctor? ?? If you have questions about your diet Helpful tips ?? Stop smoking. Smoking increases your stomach acid and can make you more likely to develop an ulcer. ?? Do not use drugs like ibuprofen (Advil, Motrin) for swelling and pain. These are non-steroidal anti-inflammatory drugs (NSAIDS). Talk to your doctor about other drugs like acetaminophen (Tylenol) to ease your pain. Where can I learn more? GI Society [employer] Research http://www.badgut.org/information-centre/health-nutrition/paga-tpn-nkcak-disease / Last Reviewed Date 2016-04-14 Consumer Information Use and Disclaimer This information is not specific medical advice and does not replace information you receive from your health care provider. This is only a brief summary of general information. It does NOT include all information about conditions, illnesses, injuries, tests, procedures, treatments, therapies, discharge instructions or life-style choices that may apply to you. You must talk with your health care provider for complete information about your health and treatment options. This information should not be used to decide whether or not to accept your health care provider???s advice, instructions or recommendations. Only your health care provider has the knowledge and training to provide advice that is right for you. Copyright Copyright ?? 2019 [employer]. and its affiliates and/or licensors. All rights reserved. documented in this encounter Progress Notes * Haris Hoffman DO - 05/09/2019 9:00 AM CDT Images from the original note were not included. GENERAL OFFICE VISIT Encounter Date: 05/09/2019 Chief Complaint: 38-year-old male presents for Establish Care . The patient is being seen for a health maintenance evaluation. This is the patient's first visit. General Health: good Dental Health: Rare dental visits, Brushes regularly and Flosses regularly Vision Health: Wears glasses Hearing Health: No hearing problems Immunizations Needed: Influenza, but refuses Weight: Overweight Body mass index is 30.46 kg/m??. Physical Activity: Excercises occaisonally Prostate Cancer Screening: No family history of prostate cancer Testicular Cancer Screening: Counseled on self-exams Colorectal Cancer Screening: No family history, had colonoscopy in 2019 Metabolic Screening: Patient has been screened previously within the past year. HCV Screening: Patient does not meet criteria for screening PHQ-9 Screening Score: 2 Smoking Status: History Smoking Status ??? Never Smoker Smokeless Tobacco ??? Never Used Patient does not meet criteria for Low Dose CT screening Sleep Apnea Risk Factors: Snoring and Male Pt has history of depression. He is currently on bupropion XL & citalopram. He has had the condition for 20-25 years. He started treating it in his 20s. Pt is doing well on these medications at this time. Pt is currently on Vitamin D supplementation. He notes it was low in the past. Pt states he has a history of a back injury in 2011. He had a spinal fusion following this, and hasn't had an issue since then. Pt has history of inflamed esophagus. He had blood in his stool in the past, so he had an EGD &Colonoscopy. He states he was eating a large meal & drinking a beer and going straight to bed. 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 He reduced his drinking to almost none. Review of Systems Constitutional: Negative for fever. HENT: Negative for hearing loss. Does have 4-6 sinus infections a year Eyes: Negative for blurred vision. Respiratory: Negative for shortness of breath. Cardiovascular: Negative for chest pain. Gastrointestinal: Negative for abdominal pain, nausea and vomiting. Genitourinary: Negative for dysuria. Skin: Negative for rash. Psychiatric/Behavioral: See HPI [...] file Gets together: Not on file Attends [employer] service: Not on file Active member of [...] Medication Sig Dispense Refill ??? buPROPion XL 150 MG 24 hr tablet Take 1 tablet (150 mg total) by mouth daily. 90 tablet 3 ??? Cholecalciferol (VITAMIN D-3 OR) Take 3,000 Units by mouth daily. ??? citalopram 40 MG tablet Take 1 tablet (40 mg total) by mouth daily. 90 tablet 3 No current facility-administered medications for this visit. Current Outpatient Medications on File Prior to Visit Medication Sig ??? Cholecalciferol (VITAMIN D-3 OR) Take 3,000 Units by mouth daily. No current facility-administered medications on file prior to visit. No Known Allergies Objective: Filed Vitals: 05/09/19 0918 BP: 118/68 Pulse: 76 Resp: 16 Temp: 98.6 ??F (37 ??C) SpO2: 98% Weight: 107.6 kg (237 lb 4 oz) Height: 6' 2 (1.88 m) Physical Exam Constitutional: He is oriented to person, place, and time and well-developed, well-nourished, and in no distress. No distress. HENT: Head: Normocephalic and atraumatic. Right Ear: Tympanic membrane, external ear and ear canal normal. Left Ear: Tympanic membrane, external ear and ear canal normal. Mouth/Throat: No oropharyngeal exudate. Eyes: Conjunctivae are normal. Neck: Neck supple. Cardiovascular: Normal rate, regular rhythm and normal heart sounds. Exam reveals no gallop and no friction rub. No murmur heard. Pulmonary/Chest: Effort normal and breath sounds normal. No respiratory distress. He has no wheezes. He has no rales. Abdominal: Soft. Bowel sounds are normal. There is no tenderness. Musculoskeletal: He exhibits no edema. Lymphadenopathy: He has no cervical adenopathy. Neurological: He is alert and oriented to person, place, and time. Gait normal. Skin: Skin is warm and dry. No rash noted. Psychiatric: Affect normal. Nursing note and vitals reviewed. Assessment & Plan: David was seen today for establish care. Diagnoses and all orders for this visit: Encounter to establish care with new doctor Encounter for preventative adult health care examination Gastroesophageal reflux disease with esophagitis Mild episode of recurrent major depressive disorder (CMS/[facility]) - buPROPion XL 150 MG 24 hr tablet; Take 1 tablet (150 mg total) by mouth daily. - citalopram 40 MG tablet; Take 1 tablet (40 mg total) by mouth daily. BMI 30.0-30.9,adult Recurrent sinus infections - AMB REFERRAL TO ENT Vitamin D deficiency Discussion/Summary: Continue current medications. Will obtain lab work next year is here he had normal lab work drawn this year. Will refer to ENT for his recurrent sinus infections. Expected and preventive management discussed, including diet and exercise. Patient follow-up in approximately 1 year for preventive visit. Follow-up sooner if needed, especially given his frequent sinus infections. Given handout on dietchanges to be made for GERD with esophagitis. Patient verbalized understanding. Haris Hoffman DO documented in this encounter Plan of Treatment Upcoming Encounters Date Type Department Care Team (Late st Contact Info) Description 07/30/2024 8:40 AM FEEDER CATCHER Office Visit [facility] Family & Internal Medicine - [address] [address] Haris Hoffman DO [address] [place] [address] Scheduled Referrals Name Type Priority Associated Diagnoses Orde r Schedule Ambulatory referral to ENT Referral Routine Recurrent sinus infections Ordered: 05/09/2019 documented as of this encounter Visit Diagnoses Diagnosis Encounter to establish care with new doctor- Primary Other reasons for seeking consultation Encounter for preventative adult health care examination Gastroesophageal reflux disease with esophagitis Mild episode of recurrent major depressive disorder ([facility]) BMI 30.0-30.9,adult Body Mass Index 30.0-30.9, adult Recurrent sinus infections Unspecified sinusitis (chronic) Vitamin D deficiency Unspecified vitamin D deficiency documented in this encounter Care Teams Surgery Manager Relationship Specialty Start Date End Date Haris Hoffman DO [address] [place] [address] PCP - General FAMILY PRACTICE 05/09/19 documented as of this encounter
--- OUTSIDE RECORDS SUMMARY | 2024-07-02 06:35 | XMS_ITS | Continuity of Care Document ---
Author Organization [facility] Address [address] [place] [address] Phone Care Team Providers Care Magisterial District Judge Name Role Phone Yon Angel MD Unavailable Unavailable Advance Directives Directive Yes / No Effective Date File Name No Information Encounters Encounter Description Practice Location Reason(s) For Visit Diagnoses Date Provider Providers Copied on Encounter [facility], [address], [place], [place], [id number], tel:[phone] [facility] No Information Jeanne Marvin. [address] [place], [place], [id number], [place]. tel:[phone] Referring Provider: Misael Resendiz, [address], [place], [address]. tel:[phone] Family History Family Member Type Diagnosis Age At Onset No Information Payers Payer name Insurance type Covered republican ID Christina whitehead(s) WILMAN 4 [id number] Social History Type Description Quantity Date Captured Comments Sex Male Smoking Status No Information Chief Complaint And Reason For Visit No Information Reason For Referral Reason For Referral No Information History Of Present Illness Encounter Date Complaint History Of Prese nt Illness No Information Functional Status Date Functional Assessmen t No Information Instructions Date Instruction Additional Infor mation No Information Assessments Type Assessment Date No Information Patient Care Teams Name Effective Dates (start - stop) Status Members No Information
--- OUTSIDE RECORDS SUMMARY | 2024-07-02 06:35 | XMS_ITS ---
Author Organization [facility] Address [address] [place] [address] Care Team Providers Care Vp Training Name Role Phone Boni Romero Primary Care Provider [phone] Manuelito Larson [phone] REASON FOR VISIT Propranolol Medications Medication SIG (Take, Route, Frequency, Duration) Notes Start Date End Date Status Propranolol HCl ER 60 MG 1 capsule at be dtime Orally Once a day for 30 days 09/27/2023 Active Social History Sex Assigned At : Social History Observation Description Sex Assigned At Male Encounters Encounter Location Date Provider Diagnosis [facility] [address] [place] [address] 06/24/2024 Boni Romero ROSY (generalized anxiety disorder) F41.1 Assessments Encounter Date Diagnosis (ICD Code) Assessment Notes Treatment Notes Treatment Clinical Notes Section Notes 06/24/2024 ROSY (generalized anxiety disorder) (ICD-10 - F41.1) Plan Of Treatment Medication Medication Name Sig Start Date Stop Date Notes Propranolol HCl ER 60 MG 1 capsule at be dtime Orally Once a day for 30 days 09/27/2023 Next Appt Details Provider Name:Boni Nuno , 07/07/2024 03:40:00 PM, [address] [facility], [place], [address], Progress Notes * David POWERSDOB:1980 (43 yo M)Acc No.[id number]:06/24/2024 Patient:?David POWERS :1980???Age:43 Y???Sex:Male Address:[address] [place], [address] * Refills? Refill Propranolol HCl ER Capsule Extended Release 24 Hour, 60 MG, Orally, 30 Capsule, 1 capsule at bedtime, Once a day, 30 days, Refills=1 * true * Date:? Generated for Amanda dodge/[place]/eTransmitting on:?07/02/2024 06:34 AM PUNCHER
--- OUTSIDE RECORDS SUMMARY | 2024-07-02 06:35 | XMS_ITS ---
Author Organization [facility] Address [address] [place] [address] Care Team Providers Care Ladies' Hat Trimmer Name Role Phone Boni Romero Primary Care Provider Manuelito Larson [phone] REASON FOR VISIT anxiety meds Medications Medication SIG (Take, Route, Frequency, Duration) Notes Start Date End Date Status diazePAM 2 MG 1 tablet as needed f or anxiety Orally Twice a day for 5 days 06/30/2024 Active Social History Sex Assigned At : Social History Observation Description Sex Assigned At Male Encounters Encounter Location Date Provider Diagnosis [facility] [address] [place] [address] 06/27/2024 Boni Romero ROSY (generalized anxiety disorder) F41.1 Assessments Encounter Date Diagnosis (ICD Code) Assessment Notes Treatment Notes Treatment Clinical Notes Section Notes 06/27/2024 ROSY (generalized anxiety disorder) (ICD-10 - F41.1) Plan Of Treatment Medication Medication Name Sig Start Date Stop Date Notes diazePAM 2 MG 1 tablet as needed f or anxiety Orally Twice a day for 5 days 06/30/2024 Next Appt Details Provider Name:Boni Nuno , 07/07/2024 03:40:00 PM, [address] [facility], [place], [address], Progress Notes * David POWERSDOB:1980 (43 yo M)Acc No.[id number]:06/27/2024 UNLOCKED PROGRESS NOTE Patient:?David POWERS :1980???Age:43 Y???Sex:Male Address[address] [place], [address] * Refills? Start diazePAM Tablet, 2 MG, Orally, 10 Tablet, 1 tablet as needed for anxiety, Twice a day, 5 days, Refills=0 Subjective: * Chief Complaints: * ???Anxiety meds * Medical History:? * Surgical History:? * Hospitalization/Major Diagno stic Procedure:? * Medications:? Objective: * Vitals:? * Physical Examination:? Assessment: * Assessment: 1.?ROSY (generalized anxiety disorder) - F41.1 (Primary)??? Plan: * Treatment: * Procedure Codes:? * * Date:?
--- OUTSIDE RECORDS SUMMARY | 2024-07-02 06:35 | XMS_ITS ---
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 Screener form ?1. Wish to be : Have yo u wished you were or wished you could go to sleep and not wake up?: No ?2. Suicidal Thoughts: Have you actually had any thoughts of killing yourself?: No ?6. Suicide Behaviour: Have you ever done anything,started to do anything, or prepared to end your life?: No ?Interpretation:: Low Risk CSSRS Interpretation and Follow Up Plan CSSRS Interpretation and Follow Up Plan Moderate or High risk requires selection of a follow up plan: CSSRS Moderate/high: Warm hand off to Behavioral Health Clinician - Client talked with this provider. Denies method, plan, or intent. Denies needing crisis intervention at this time. Verified with client that they have access to crisis numbers if and as needed. Examination Category Sub-Category Detail Notes Category Not es Psychiatry APPEARANCE: unable to assess - telephone appointment ATTITUDE: cooperative , pleasa nt PSYCHOMOTOR ACTIVITY: unable to assess - telephone appointment ABNORMAL BODY MOVEMENTS: none ATTENTION: good DEGREE OF AWARENESS OF SURROUNDINGS: wit hin normal limits ORIENTATION: yes , person, place and time AFFECT: appropriate , full r tamara MOOD: euthymic SPEECH: clear, pressured INSIGHT: fair JUDGEMENT: fair THOUGHT PROCESS: intact THOUGHT CONTENT: unremarkable PERCEPTUAL DISORDERS: no perceptual diso rder noted CURRENT SUICIDALITY: not presently CURRENT HOMICIDALITY: none
--- OUTSIDE RECORDS SUMMARY | 2024-07-02 10:25 | XMS_ITS | Encounter Summary ---
Author Organization [facility] Address [address] [place] [address] Care Team Providers Care Type Rolling Machine Operator Name Role Phone Haris Hoffman Primary Care Provider + Reason for Visit * Reason Comments Dizziness Nausea States for days now has been having dizziness and nausea that comes and goes. Encounter Details Date Type Department Care Team (Late st Contact Info) Description 05/04/2022 9:17 AM CDT - 05/04/2022 11:51 AM CDT Emergency ER at [address] [address] Benign paroxysmal positional vertigo, unspecified laterality (Primary [...] RELIEF) 50 MCG/ACT nasal sprayIndications:Allerg ic Rhinitis [place] 2 sprays into each nostril once [...] <0.010 <0.038 ng/mL 05/04/2022 10:16 AM CDT [facility] Blood BLOOD SPECIMEN / Unknown Venipuncture / Unknown 05/04/2022 9:45 AM CDT 05/04/2022 9:49 AM CDT Disha Mojica PA-C LAB - CHEMISTRY ORDERABLES Performing Organization Address [facility]/ZIP Co de Phone Number [facility] [address] [place] [address] * MAGNESIUM BLOOD (05/04/2022 9:45 AM CDT) [facility] Magnesium 2.0 1.6 - 2.6 mg/dL 05/04/2022 10:10 AM CDT [facility] Blood BLOOD SPECIMEN / Unknown Venipuncture / Unknown 05/04/2022 9:45 AM CDT 05/04/2022 9:49 AM CDT Disha Mojica PA-C LAB - CHEMISTRY ORDERABLES [facility] [address] [place] [address] * (ABNORMAL) COMPREHENSIVE METABOLIC PANEL (05/04/2022 9:45 AM CDT) [facility] Glucose 97 70 - 105 mg/dL 05/04/2022 10:10 AM CDT [facility] Sodium 138 136 - 145 mmol/L 05/04/2022 10:10 AM CDT [facility] Potassium 4.1 3.5 - 5.1 mmol/L 05/04/2022 10:[address] [facility] Chloride 106 98 - 107 mmol/L 05/04/2022 10:[address] [facility] CO2 20(L) 23 - 31 mmol/L 05/04/2022 10:[address] [facility] Calcium 9.6 8.4 - 10.4 mg/dL 05/04/2022 10:[address] [facility] Anion Gap 12 8 - 18 mmol/L 05/04/2022 10:[address] [facility] BUN 9 8.9 - 20.6 mg/dL 05/04/2022 10:[address] [facility] Creatinine 0.88 0.72 - 1.25 mg/dL 05/04/2022 10:[address] [facility] Alkaline Phosphatase 88 40 - 150 U/L 05/04/2022 10:[address] [facility] ALT 46 0 - 61 U/L 05/04/2022 10:[address] [facility] AST 25 5 - 34 U/L 05/04/2022 10:[address] [facility] Protein Total 7.5 6.4 - 8.3 gm/dL 05/04/2022 10:[address] [facility] Albumin 4.4 3.5 - 5.2 gm/dL 05/04/2022 10:[address] [facility] Bilirubin Total 0.7 0.2 - 1.2 mg/dL 05/04/2022 10:[address] [facility] eGFR by CKD-EPI >90 >=90 mL/min/1.7 3 m2 05/04/2022 10:[address] [facility] Blood BLOOD SPECIMEN / Unknown Venipuncture / Unknown 05/04/2022 9:45 AM CDT 05/04/2022 9:49 AM T Disha Mojica PA-C LAB - CHEMISTRY ORDERABLES [facility] [address] [facility] [place] [address] * (ABNORMAL) CBC W AUTO DIFFERENTIAL (05/04/2022 9:45 AM CDT) WBC 8.2 4.4 - 10.7 x10E9/L 05/04/2022 9:56 AM CDT [facility] WBC Corrected 05/04/2022 9:56 AM CDT [facility] RBC 4.95 3.80 - 5.40 x10E12/L 05/04/2022 9:56 AM CDT [facility] Hemoglobin 15.9 12.0 - 17.6 gm/dL 05/04/2022 9:56 AM CDT [facility] Hematocrit 45.9 35.2 - 51.7 % 05/04/2022 9:56 AM CDT [facility] MCV 92.7 80.7 - 98.3 fl 05/04/2022 9:56 AM CDT [facility] MCH 32.1 26.7 - 34.0 pg 05/04/2022 9:56 AM CDT [facility] MCHC 34.6 30.8 - 35.9 gm/dL 05/04/2022 9:56 AM CDT [facility] Platelet Count 368 153 - 416 x10E9/L 05/04/2022 9:56 AM CDT [facility] RDW-CV 11.7(L) 12.1 - 14.9 % 05/04/2022 9:56 AM CDT [facility] MPV 8.5(L) 9.4 - 12.9 fl 05/04/2022 9:56 AM CDT [facility] Neutrophils % 77.7(H) 44.0 - 73.0 % 05/04/2022 9:56 AM CDT [facility] Lymphocytes % 16.0(L) 20.0 - 43.0 % 05/04/2022 9:56 AM CDT [facility] Monocytes % 5.9 5.0 - 13.0 % 05/04/2022 9:56 AM CDT [facility] Eosinophils % 0.1 0.0 - 6.0 % 05/04/2022 9:56 AM CDT [facility] Basophils % 0.2 0.0 - 2.0 % 05/04/2022 9:56 AM CDT [facility] Immature Granulocytes 0.1 0 - 1 % 05/04/2022 9:56 AM CDT [facility] Neutrophil Absolute 6.34 2.01 - 7.14 x10E9/L 05/04/2022 9:56 AM CDT [facility] Lymphocytes Absolute 1.31 1.07 - 3.94 x10E9/L 05/04/2022 9:56 AM CDT [facility] Monocytes Absolute 0.48 0.26 - 1.07 x10E9/L 05/04/2022 9:56 AM CDT [facility] Eosinophils Absolute 0.01 0 - 0.47 x10E9/L 05/04/2022 9:56 AM CDT [facility] Basophils Absolute 0.02 0 - 0.08 x10E9/L 05/04/2022 9:56 AM CDT [facility] Immature Granulocytes Absolute 0.01 0.00 - 0.06 x10E9/L 05/04/2022 9:56 AM CDT [facility] nRBC Auto 0 /100 WBC 05/04/2022 9:56 AM CDT [facility] Blood BLOOD SPECIMEN / Unknown Venipuncture / Unknown 05/04/2022 9:45 AM CDT 05/04/2022 9:48 AM CDT Disha Mojica PA-C LAB - HEMATOLOGY ORDERABLES [facility] [address] [place] [address] * EKG 12-LEAD (05/04/2022 9:36 AM CDT) Ventricular Rate 107 BPM [facility] Atrial Rate 107 BPM [facility] P-R Interval 120 ms [facility] QRS Duration ms 106 ms [facility] Q-T Interval ms 348 ms [facility] QTC Calculation (Bezet) 464 ms [facility] Calculated P [place] 73 degrees [facility] Calculated R [place] 33 degrees [facility] Calculated T [place] 40 degrees [facility] Interpretation EKG Sinus tachycardia Otherwise normal ECG No previous ECGs available Confirmed by FAIZA JOEL MD ([id number]) on 05/07/2022 10:25:19 PM [facility] 05/04/2022 9:36 AM CDT 05/07/2022 [...] RN) documented in this encounter Care Teams Type Rolling Machine Operator Relationship Specialty Start Date End Date Haris Hoffman DO PCP - General 05/23/19 documented as of this encounter
--- OUTSIDE RECORDS SUMMARY | 2024-07-02 10:25 | XMS_ITS | Encounter Summary ---
Author Organization [facility] Address [address] [address] Care Team Providers Care Health Care Legal Assistant Name Role Phone Unavailable Primary Care Provider Unavailabl e Reason for Visit * Reason Onset Date Comments Follow-up 03/09/2018 Encounter Details Date Type Department Care Team (Late st Contact Info) Description 03/09/2018 Telephone [facility] AT [address] [address] Kayleigh Randhawa APRN-CNP [address] [place] [address] Follow-up Social History Tobacco Use [...]
--- OUTSIDE RECORDS SUMMARY | 2024-07-02 10:25 | XMS_ITS | Encounter Summary ---
Author Organization [facility] Address [address] [facility] [place] [address] Care Team Providers Care Hemstitching Machine Operator Name Role Phone Haris Hoffman Vicente HIDALGO Primary Care Provider + Encounter Details Date Type Department Care Team (Late st Contact Info) Description 09/15/2019 9:30 AM BAGGAGE SECURITY CHECKER Office Visit [facility] [address], [address] [place] [address] Lydia Laws, ARMATURE WINDER REPAIRER-SQL SERVER DEVELOPER [address] [place] [address] Chronic sinusitis, unspecified location (Primary [...] Comments Blood Pressure 129/85 09/15/2019 9:32 AM BAGGAGE SECURITY CHECKER Pulse 97 09/15/2019 9:32 AM BAGGAGE SECURITY CHECKER Temperature - - Respiratory Rate - - Oxygen Saturation - - Inhaled Oxygen Concentration - - Weight 110.2 kg (243 lb) 09/15/2019 9:32 AM BAGGAGE SECURITY CHECKER Height 188 cm (6' 2 ) 09/15/2019 9:32 AM BAGGAGE SECURITY CHECKER Body Mass Index 31.2 09/15/2019 9:32 AM BAGGAGE SECURITY CHECKER documented in this encounter Patient Instructions * Patient Instructions* Lanny Galeano - 09/15/2019 9:33 AM BAGGAGE SECURITY CHECKER Thank you for visiting [facility] - Head & Neck Surgery. We [...] an appointment, please call our office at [phone] Sunday through Sunday from 8:30 am to4:30 pm. You can also request a routine appointment through your [employer] account. ??? Prescription Refills Contact your pharmacy [...] the medical exchange at and ask the brazing furnace operator to page the ENT physician employment instructional associate. *Caller ID blocking service will need to be turned off for your call to be returned. We also specialize in Hearing Aids, Allergy testing, swallowing disorders, voice problems, cancer diagnosis, and so much more. Visit our website at [email or web address] for information about our practice and an interactive health encyclopedia. AGE SECURITY CHECKER documented in this encounter Progress Notes * Lydia Laws, ARMATURE WINDER REPAIRER-SQL SERVER DEVELOPER - 09/15/2019 10:31 AM CST History of [...] (FLONASE ALLERGY RELIEF) 50 MCG/ACT nasal spray [place] 2 sprays into eachnostril once daily Reasons: [...] get a CT scan for further evaluation. AGE SECURITY CHECKER * Lanny Galeano - 09/15/2019 9:32 AM CST Review of Systems David Rider reports the following; Nose: sinus pain, post nasal drainage AGE SECURITY CHECKER documented in this encounter Procedure Notes * Lydia Laws APRN-CNP - 09/15/2019 10:40 AM CSTAssociated Order(s): PROC SINUS ENDOSCOPY Procedure(s): DE NASAL ENDOSCOPY,DX Pre-Procedure Diagnose(s): Chronic sinusitis, unspecified [...] present for the entirety of the procedure. AGE SECURITY CHECKER documented in this encounter Plan of Treatment Not on file documented as of this encounter Procedures Procedure Name Priority Date/Time Associated Diagnosis Comments DE NASAL ENDOSCOPY,DX Routine 09/15/2019 10:40 AM BAGGAGE SECURITY CHECKER Chronic sinusitis, unspecified location documented in this encounter Results * DE NASAL ENDOSCOPY,DX (09/15/2019 10:40 AM BAGGAGE SECURITY CHECKER) Narrative Lydia Laws APRN-CNP - 09/15/2019 10:40 AM BAGGAGE SECURITY CHECKER Lydia Laws APRN-CNP ? 09/15/2019 10:41 AM [...] Primary documented in this encounter Care Teams Hemstitching Machine Operator Relationship Specialty Start Date End Date Haris Hoffman DO PCP - General 05/23/19 documented as of this encounter
--- OUTSIDE RECORDS SUMMARY | 2024-07-02 10:25 | XMS_ITS | Encounter Summary ---
Author Organization [facility] Address [address] [place] [address] Care Team Providers Care Electrical Maintenance Supervisor Name Role Phone Haris Hoffman DO Primary Care Provider + Reason for Visit * Reason Onset Date Comments Sinusitis 10/20/2019 Encounter Details Date Type Department Care Team (Late st Contact Info) Description 10/20/2019 Telephone [facility] [address] [facility] [facility] [address] [place] [address] Clare Howard RN Sinusitis Social History Tobacco [...] on filedocumented in this encounter Care Teams Electrical Maintenance Supervisor Relationship Specialty Start Date End Date Haris Hoffman DO PCP - General 05/23/19 documented as of this encounter
--- OUTSIDE RECORDS SUMMARY | 2024-07-02 10:25 | XMS_ITS | Encounter Summary ---
Author Organization [facility] Address [address] [facility] [place] [address] Care Team Providers Care Publication Designer Name Role Phone Haris Hoffman DO Primary Care Provider + Reason for Visit * Reason Comments Sinusitis Ear Pain Encounter Details Date Type Department Care Team (Latest Contact Info) Description 07/28/2019 6:00 PM WEATHERIZATION DIRECTOR Office Visit [facility] AT [address] [address] Provider, Earnestine Exp Nameoki Other [...] Comments Blood Pressure 120/78 07/28/2019 5:46 PM WEATHERIZATION DIRECTOR Pulse 81 07/28/2019 5:46 PM WEATHERIZATION DIRECTOR Temperature 37.1 ??C (98.8 ??F) 07/28/2019 5:46 PM CS T Respiratory Rate 16 07/28/2019 5:46 PM WEATHERIZATION DIRECTOR Oxygen Saturation 99% 07/28/2019 5:46 PM WEATHERIZATION DIRECTOR Inhaled Oxygen Concentration - - Weight 111.1 kg (245 lb) 07/28/2019 5:46 PM WEATHERIZATION DIRECTOR Height 188 cm (6' 2 ) 07/28/2019 5:46 PM WEATHERIZATION DIRECTOR Body Mass Index 31.46 07/28/2019 5:46 PM WEATHERIZATION DIRECTOR documented in this encounter Patient Instructions * Patient Instructions* Mary Castellanos, GERIATRICS PHYSICIAN-COLLEGE PHYSICS INSTRUCTOR - 07/28/2019 5:51 PM WEATHERIZATION DIRECTOR Images from the original note were [...] not completely resolve. Patient Education Ear Infection INSPECTOR [employer]: An ear infection is also called otitis [...] ask them during your visits. ?? Copyright [employer] 2018 Information is for End User's use only and may not be sold, redistributed or otherwise used for commercial purposes. All illustrations and images included in CareNotes?? are the copyrighted property of [employer]. or [employer] The above information is an preschool aide only. It is not intended as medical advice for individual conditions or treatments. Talk to your doctor, nurse or pharmacist before following any medical regimen to see if it is safe and effective for you. HERIZATION DIRECTOR documented in this encounter Progress Notes [...] (FLONASE ALLERGY RELIEF) 50 MCG/ACT nasal spray [place] 2 sprays into eachnostril once daily Reasons: [...] file Gets together: Not on file Attends taoist service: Not on file Active member of [...] 0 DINORA De León 07/28/2019 6:00 PM HERIZATION DIRECTOR documented in this encounter Plan of Treatment Not on file documented as of this encounter Visit Diagnoses Diagnosis Other non-recurrent acute nonsuppurative otitis media of right ear- Primary documented in this encounter Care Teams Publication Designer Relationship Specialty Start Date End Date Haris Hoffman DO PCP - General 05/23/19 documented as of this encounter
--- OUTSIDE RECORDS SUMMARY | 2024-07-02 10:25 | XMS_ITS | Patient Health Summary ---
Author Organization [facility] Address [address] [place] [address] Care Team Providers Care Measurement Advisor Name Role Phone Haris Hoffman Vicente HIDALGO Primary Care Provider + Note from [facility],non-owned Affiliates and Associated Physician Practices is amultiple site organization consisting of ambulatory clinics and hospital sitesin [place], [place], [place] and [place]. This disclosure is being madepursuant to the Care Everywhere program and may not contain all information available regarding this patient. Last updated 18.[facility] Allergies No known active allergies Medications * Be aware that medications may not be up to date on this document. Alwaysverify current medications with the patient. * Cholecalciferol (VITAMIN D PO) * fluticasone propionate (FLONASE ALLERGY RELIEF) 50 MCG/ACT nasal spray(Started 03/07/2018) [place] 2 sprays into each nostril once daily [...] Performed for Screening for viral disease * ID NASAL ENDOSCOPY,DX(Performed 09/15/2019) Performed for Chronic sinusitis, unspecified location Results * TROPONIN I (05/04/2022 9:45 AM CDT) Pathologist [facility] Troponin I <0.010 <0.038 ng/mL 05/04/2022 10:16 AM CDT [facility] Blood BLOOD SPECIMEN / Unknown Venipuncture / Unknown 05/04/2022 9:45 AM CDT 05/04/2022 9:49 AM CDT Disha Mojica PA-C LAB - CHEMISTRY ORDERABLES Performing Organization Address City/State/[facility] Co de Phone Number [facility] [address] [place] [address] * (ABNORMAL) CBC W AUTO DIFFERENTIAL (05/04/2022 9:45 AM CDT) Pathologist [facility] WBC 8.2 4.4 - 10.7 x10E9/L 05/04/2022 9:56 AM CDT [facility] WBC Corrected 05/04/2022 9:56 AM CDT [facility] RBC 4.95 3.80 - 5.40 x10E12/L 05/04/2022 9:56 AM CDT [facility] Hemoglobin 15.9 12.0 - 17.6 gm/dL 05/04/2022 9:56 AM CDT [facility] Hematocrit 45.9 35.2 - 51.7 % 05/04/2022 9:56 AM CDT [facility] MCV 92.7 80.7 - 98.3 fl 05/04/2022 9:56 AM CDT [facility] MCH 32.1 26.7 - 34.0 pg 05/04/2022 9:56 AM CDT [facility] MCHC 34.6 30.8 - 35.9 gm/dL 05/04/2022 9:56 AM CDT [facility] Platelet Count 368 153 - 416 x10E9/L 05/04/2022 9:56 AM [facility] RDW-CV 11.7(L) 12.1 - 14.9 % 05/04/2022 9:56 [facility] MPV 8.5(L) 9.4 - 12.9 fl 05/04/2022 9:56 AM [facility] Neutrophils % 77.7(H) 44.0 - 73.0 % 05/04/2022 9:56 AM [facility] Lymphocytes % 16.0(L) 20.0 - 43.0 % 05/04/2022 9:56 AM [facility] Monocytes % 5.9 5.0 - 13.0 % 05/04/2022 9:56 AM [facility] Eosinophils % 0.1 0.0 - 6.0 % 05/04/2022 9:56 AM [facility] Basophils % 0.2 0.0 - 2.0 % 05/04/2022 9:56 AM [facility] Immature Granulocytes 0.1 0 - 1 % 05/04/2022 9:56 AM [facility] Neutrophil Absolute 6.34 2.01 - 7.14 x10E9/L 05/04/2022 9:56 AM [facility] Lymphocytes Absolute 1.31 1.07 - 3.94 x10E9/L 05/04/2022 9:56 AM [facility] Monocytes Absolute 0.48 0.26 - 1.07 x10E9/L 05/04/2022 9:56 AM [facility] Eosinophils Absolute 0.01 0 - 0.47 x10E9/L 05/04/2022 9:56 AM [facility] Basophils Absolute 0.02 0 - 0.08 x10E9/L 05/04/2022 9:56 AM [facility] Immature Granulocytes Absolute 0.01 0.00 - 0.06 x10E9/L 05/04/2022 9:56 AM [facility] nRBC Auto 0 /100 WBC 05/04/2022 9:56 AM [facility] Blood BLOOD SPECIMEN / Unknown Venipuncture / Unknown 05/04/2022 9:45 AM CDT 05/04/2022 9:48 AM CDT Disha Mojica PA-C LAB - HEMATOLOGY ORDERABLES [facility] [address] [place] [address] * (ABNORMAL) COMPREHENSIVE METABOLIC PANEL (05/04/2022 9:45 AM CDT) Glucose 97 70 - 105 mg/dL 05/04/2022 10:10 AM CDT [facility] Sodium 138 136 - 145 mmol/L 05/04/2022 10:10 AM CDT [facility] Potassium 4.1 3.5 - 5.1 mmol/L 05/04/2022 10:10 AM CDT [facility] Chloride 106 98 - 107 mmol/L 05/04/2022 10:10 [facility] CO2 20(L) 23 - 31 mmol/L 05/04/2022 10:10 AM [facility] Calcium 9.6 8.4 - 10.4 mg/dL 05/04/2022 10:10 AM [facility] Anion Gap 12 8 - 18 mmol/L 05/04/2022 10:10 AM CDT [facility] BUN 9 8.9 - 20.6 mg/dL 05/04/2022 10:10 AM CDT [facility] Creatinine 0.88 0.72 - 1.25 mg/dL 05/04/2022 10:10 AM [facility] Alkaline Phosphatase 88 40 - 150 U/L 05/04/2022 10:10 AM [facility] ALT 46 0 - 61 U/L 05/04/2022 10:10 AM CDT [facility] AST 25 5 - 34 U/L 05/04/2022 10:10 AM [facility] Protein Total 7.5 6.4 - 8.3 gm/dL 05/04/2022 10:10 AM CDT [facility] Albumin 4.4 3.5 - 5.2 gm/dL 05/04/2022 10:10 AM CDT [facility] Bilirubin Total 0.7 0.2 - 1.2 mg/dL 05/04/2022 10:10 AM [facility] eGFR by CKD-EPI >90 >=90 mL/min/1.7 3 m2 05/04/2022 10:10 AM CDT [facility] Blood BLOOD SPECIMEN / Unknown Venipuncture / Unknown 05/04/2022 9:45 AM CDT 05/04/2022 9:49 AM CDT Disha Mojica PA-C LAB - CHEMISTRY ORDERABLES Performing Organization Address [facility]/ZIP Co de Phone Number [facility] [address] [place] [address] * MAGNESIUM BLOOD (05/04/2022 9:45 AM CDT) Magnesium 2.0 1.6 - 2.6 mg/dL 05/04/2022 10:10 AM CDT [facility] Blood BLOOD SPECIMEN / Unknown Venipuncture / Unknown 05/04/2022 9:45 AM CDT 05/04/2022 9:49 AM CDT Disha Mojica PA-C LAB - CHEMISTRY ORDERABLES Performing Organization Address [facility] Co de Phone Number [facility] [address] [place] [address] * EKG 12-LEAD (05/04/2022 9:36 AM CDT) Ventricular Rate 107 BPM [facility] Atrial Rate 107 BPM [facility] P-R Interval 120 ms [facility] QRS Duration ms 106 ms [facility] Q-T Interval ms 348 ms [facility] QTC Calculation (Bezet) 464 ms [facility] Calculated P [place] 73 degrees [facility] Calculated R [place] 33 degrees [facility] Calculated T [place] 40 degrees [facility] Interpretation EKG Sinus tachycardia Otherwise normal ECG No previous ECGs available Confirmed by FAIZA JOEL MD ([id number]) on 05/07/2022 10:25:19 PM [facility] M[facility] 05/04/2022 9:36 AM CDT 05/07/2022 10:25 PM CDT Disha Mojica PA-C ECG ORDERABLES [facility] * (ABNORMAL) SARS-COV-2 (COVID-19) AG (AMB) POCT (03/17/2021 4:52 PM CDT) SARS-CoV-2 Ag Positive(A) Negative [facility] Lot # [id number] [facility] Expiration Date 07/03/22 [facility] Instrument Serial Number [id number] [facility] COVID Internal Control Acceptable [...] assay are available upon request. Jesus Dominguez ARCHERY INSTRUCTOR-WASTEWATER ANALYST LAB - POINT OF CARE ORDERABLES [facility] [address] [place], [place] [id number] [place] [address] * ID NASAL ENDOSCOPY,DX (09/15/2019 10:40 AM SALES MGR) Narrative Lydia Laws, MARGO - 09/15/2019 10:40 AM SALES MGR Lydia Laws APRN-CNP ? 09/15/2019 10:41 AM [...] Lydia ARAGON PROCEDURE/MINOR SURGICAL ORDERABLES Care Teams Measurement Advisor Relationship Specialty Start Date End Date Haris Hoffman DO PCP - General 05/23/19
--- OUTSIDE RECORDS SUMMARY | 2024-07-02 10:25 | XMS_ITS | Encounter Summary ---
Author Organization [facility] Address [address] [facility] [place] [address] Care Team Providers Care English Teacher Name Role Phone Haris Hoffman DO [...] documented as of this encounter Care Teams English Teacher Relationship Specialty Start Date End Date Haris Hoffman DO PCP - General 05/23/19 documented as of this encounter
--- OUTSIDE RECORDS SUMMARY | 2024-07-02 10:25 | XMS_ITS | Encounter Summary ---
Author Organization [facility] Address [facility] [place] [address] Care Team Providers Care Hairspring Adjuster Name Role Phone Haris Hoffman DO Primary [...] on filedocumented in this encounter Care Teams Hairspring Adjuster Relationship Specialty Start Date End Date Haris Hoffman DO PCP - General 05/23/19 documented as of this encounter
--- OUTSIDE RECORDS SUMMARY | 2024-07-02 10:25 | XMS_ITS | Encounter Summary ---
Author Organization [facility] Address [address] [place] [address] Care Team Providers Care Disc Recordist Name Role Phone Unavailable Primary Care Provider Unavailabl e Reason for Visit * Reason Comments Sinusitis Ear Problem Encounter Details Date Type Department Care Team (Late st Contact Info) Description 03/07/2018 9:00 AM CDT Office Visit [facility] AT [address] [phone] Provider, Earnestine Exp Nameoki Acute [...] Patient Instructions * Patient Instructions* Denise Boston, JEWELRY STORE MANAGER-MANDREL CLEANER - 03/07/2018 9:19 AM CDT Images from [...] COMPLICATION AND REQUIRES IMMEDIATE EMERGENCY ATTENTION. Sinusitis JR. SYSTEMS ADMINISTRATOR: Sinusitis is inflammation or infection of your [...] ask them during your visits. ?? 2017 [employer] Information is for End User's use only and may not be sold, redistributed or otherwise used for commercial purposes. All illustrations and images included in CareNotes?? are the copyrighted property of A.D.A.M., Inc. or [employer]. The above information is an school aide only. It is not intended as medical advice for individual conditions or treatments. Talk to your doctor, nurse or pharmacist before following any medical regimen to see if it is safe and effective for you. documented in this encounter Progress Notes * Denise Boston, JEWELRY STORE MANAGER-MANDREL CLEANER - 03/07/2018 9:09 AM CDT David Rider [...] (FLONASE ALLERGY RELIEF) 50 MCG/ACT nasal spray [place] 2 sprays into eachnostril once daily Reasons: [...] ALLERGY RELIEF) 50 MCG/ACT nasal spray Sig: [place] 2 sprays into each nostril once daily Reasons: Allergic Rhinitis Dispense: 1 bottles Refill: 0 Denise Boston APRN, MAINFRAME SYSTEMS PROGRAMMER-BC 03/07/2018 9:23 AM documented in this encounter Plan of Treatment Not on file documented as of this encounter Visit Diagnoses Diagnosis Acute ethmoidal sinusitis, recurrence not specified- Primary documented in this encounter
--- OUTSIDE RECORDS SUMMARY | 2024-07-02 10:25 | XMS_ITS | Encounter Summary ---
Author Organization [facility] Address [address] [facility] [place] [address] Care Team Providers Care Pulmonary Care Nurse Name Role Phone Haris Hoffman DO Primary Care Provider + Reason for Visit * Reason Onset Date Comments Future Appointment 08/22/2019 Sinus appt Encounter Details Date Type Department Care Team (Late st Contact Info) Description 08/22/2019 Telephone [facility] [address] [address] Cabrera Hancock MD [address] [place] [address] Future Appointment (Sinus appt) Social History Tobacco [...] the patient to call back to schedule. RATORY TECHNOLOGIST documented in this encounter Plan of Treatment Not on file documented as of this encounter Visit Diagnoses Not on filedocumented in this encounter Care Teams Pulmonary Care Nurse Relationship Specialty Start Date End Date Haris Hoffman DO PCP - General 05/23/19 documented as of this encounter
--- OUTSIDE RECORDS SUMMARY | 2024-07-02 10:25 | XMS_ITS | Encounter Summary ---
Author Organization [facility] Address [address] [facility] [place] [address] Care Team Providers Care Lineman Name Role Phone Haris Hoffman DO Primary Care Provider + Reason for Visit * Reason Onset Date Comments Follow-up 09/06/2019 Encounter Details Date Type Department Care Team (Late st Contact Info) Description 09/06/2019 Telephone [facility] AT [address] [phone] Patricia Cheng APRN-CNP [address] [place] [address] Follow-up Social History Tobacco Use Types Packs/Day Years Used Date Smoking Tobacco: Never Smokeless Tobacco: Never Sex and Gender Information Value Date Recorded Sex Assigned at Not on file Gender Identity Not on file Sexual Orientation Not on file documented as of this encounter Miscellaneous Notes * Telephone Encounter - Patricia Cheng APRN-CNP - 09/06/2019 1:53 PM RECRUITMENT OFFICER Courtesy follow-up phone call made to patient. Message left advising patient to call service [facility] [phone] if they have any questions or concerns. Patricia Cheng DNP, CHIEF OF POLICE-BC UITMENT OFFICER documented in this encounter Plan of Treatment Not on file documented as of this encounter Visit Diagnoses Not on filedocumented in this encounter Care Teams Lineman Relationship Specialty Start Date End Date Haris Hoffman DO PCP - General 05/23/19 documented as of this encounter
--- OUTSIDE RECORDS SUMMARY | 2024-07-02 10:25 | XMS_ITS | Encounter Summary ---
Author Organization [facility] Address [address] [facility] [place] [address] Care Team Providers Care Violin Repairer Name Role Phone Haris Hoffman DO Primary Care Provider + Reason for Visit * Reason Comments Cough Congestion Sore Throat Sinusitis Encounter Details Date Type Department Care Team (Late st Contact Info) Description 08/22/2019 11:20 AM RIG SUPERINTENDENT Office Visit [facility] AT [address] [phone] Provider, Vinniesarita Exp Nameidi Acute maxillary sinusitis, recurrence not specified (Primary [...] Comments Blood Pressure 120/88 08/22/2019 11:17 AM RIG SUPERINTENDENT Pulse 102 08/22/2019 11:17 AM RIG SUPERINTENDENT Temperature 36.9 ??C (98.4 ??F) 08/22/2019 11:[address] Respiratory Rate 17 08/22/2019 11:17 AM RIG SUPERINTENDENT Oxygen Saturation 98% 08/22/2019 11:17 AM RIG SUPERINTENDENT Inhaled Oxygen Concentration - - Weight 111.1 kg (245 lb) 08/22/2019 11:17 AM RIG SUPERINTENDENT Height 188 cm (6' 2 ) 08/22/2019 11:17 AM RIG SUPERINTENDENT Body Mass Index 31.46 08/22/2019 11:17 AM RIG SUPERINTENDENT documented in this encounter Patient Instructions * Patient Instructions* Denise Boston, BALL ROLLING MACHINE OPERATOR-DIRECTOR BUSINESS SYSTEMS - 08/22/2019 11:27 AM RIG SUPERINTENDENT Images from the original note were not [...] times daily as needed (Netti-pot, sinus rinse, [place] nasal spray, or normal saline nose spray) [...] REQUIRES IMMEDIATE EMERGENCY ATTENTION. Patient Education Sinusitis UMBRELLA REPAIRER: Sinusitis is inflammation or infection of your [...] ask them during your visits. ?? Copyright [employer] 2019 Information is for End User's use only and may not be sold, redistributed or otherwise used for commercial purposes. All illustrations and images included in CareNotes?? are the copyrighted property of [employer]. or [employer] The above information is an physical therapy aid only. It is not intended as medical advice for individual conditions or treatments. Talk to your doctor, nurse or pharmacist before following any medical regimen to see if it is safe and effective for you. SUPERINTENDENT documented in this encounter Progress Notes * [...] (FLONASE ALLERGY RELIEF) 50 MCG/ACT nasal spray [place] 2 sprays into eachnostril once daily Reasons: [...] file Gets together: Not on file Attends cheondoism service: Not on file Active member of [...] times daily as needed (Netti-pot, sinus rinse, [place] nasal spray, or normal saline nose spray) [...] Denise Boston APRN, SHILOH-BC 08/22/2019 11:32 AM SUPERINTENDENT documented in this encounter Plan of Treatment Not on file documented as of this encounter Visit Diagnoses Diagnosis Acute maxillary sinusitis, recurrence not specified- Primary documented in this encounter Care Teams Violin Repairer Relationship Specialty Start Date End Date Haris Hoffman DO PCP - General 05/23/19 documented as of this encounter
--- OUTSIDE RECORDS SUMMARY | 2024-07-02 10:25 | XMS_ITS | Encounter Summary ---
Author Organization [facility] Address [address] [facility] [address] Care Team Providers Care Manager Regional Sales Name Role Phone Haris Hoffman DO Primary Care Provider + Reason for Visit * Reason Onset Date Comments Sinusitis 11/05/2019 Encounter Details Date Type Department Care Team (Late st Contact Info) Description 11/05/2019 Telephone [facility] [address] [facility] [facility], [address] [place] [address] Jose Lebron MD [facility] DEPT [place] [address] Sinusitis Social History Tobacco Use Types Packs/Day [...] on filedocumented in this encounter Care Teams Manager Regional Sales Relationship Specialty Start Date End Date Haris Hoffman DO PCP - General 05/23/19 documented as of this encounter
--- OUTSIDE RECORDS SUMMARY | 2024-07-02 10:25 | XMS_ITS | Clinical Summary ---
Author Organization [facility] [place] Address [address] [place] [address] Care Team Providers Care Dispensing Optician Apprentice Name Role Phone Haris Hoffman Vicente HIDALGO Primary Care Provider + Source Comments [facility],non-owned Affiliates and Associated Physician Practices is amultiple site organization consisting of ambulatory clinics and hospital sitesin [place], [place], [place] and [place]. This disclosure is being madepursuant to the Care Everywhere program and may not contain all information available regarding this patient. Last updated 18.[facility] [place] Allergies No known active allergies Medications * Be aware that medications may not be up to date on this document. Alwaysverify current medications with the patient. Medication Sig Dispensed Refills Start Date End Date Status Cholecalciferol (VITAMIN D PO) Active fluticasone propionate (FLONASE ALLERGY RELIEF) 50 MCG/ACT nasal sprayIndications:Al lergic Rhinitis [place] 2 sprays into each nostril once daily [...] mg/dL 05/04/2022 10:10 AM CDT [facility] Sodium 138 136 - 145 mmol/L 05/04/2022 10:10 AM CDT [facility] Potassium 4.1 3.5 - 5.1 mmol/L 05/04/2022 10:10 AM CDT [facility] Chloride 106 98 - 107 mmol/L 05/04/2022 10:10 AM CDT [facility] CO2 20(L) 23 - 31 mmol/L 05/04/2022 10:10 AM CDT [facility] Calcium 9.6 8.4 - 10.4 mg/dL 05/04/2022 10:10 AM CDT [facility] Anion Gap 12 8 - 18 mmol/L 05/04/2022 10:10 AM CDT [facility] BUN 9 8.9 - 20.6 mg/dL 05/04/2022 10:10 AM CDT [facility] Creatinine 0.88 0.72 - 1.25 mg/dL 05/04/2022 10:10 AM CDT [facility] Alkaline Phosphatase 88 40 - 150 U/L 05/04/2022 10:10 AM CDT [facility] ALT 46 0 - 61 U/L 05/04/2022 10:10 AM CDT [facility] AST 25 5 - 34 U/L 05/04/2022 10:10 AM CDT [facility] Protein Total 7.5 6.4 - 8.3 gm/dL 05/04/2022 10:10 AM T [facility] Albumin 4.4 3.5 - 5.2 gm/dL 05/04/2022 10:10 AM T [facility] Bilirubin Total 0.7 0.2 - 1.2 mg/dL 05/04/2022 10:10 AM T [facility] eGFR by CKD-EPI >90 >=90 mL/min/1.7 3 m2 05/04/2022 10:10 AM T [facility] Blood BLOOD SPECIMEN / Unknown Venipuncture / Unknown 05/04/2022 9:45 AM CDT 05/04/2022 9:49 AM CDT Disha Mojica PA-C LAB - CHEMISTRY ORDERABLES [facility] [address] [place] [address] from Last 3 Months or Most Recently Relevant to Health Maintenance Care Teams Dispensing Optician Apprentice Relationship Specialty Start Date End Date Haris Hoffman DO PCP - General 05/23/19
--- OUTSIDE RECORDS SUMMARY | 2024-07-02 10:25 | XMS_ITS | Encounter Summary ---
Author Organization [facility] Address [address] [facility] [place] [address] Care Team Providers Care Title Department Manager Name Role Phone Haris Hoffman Primary Care Provider + Reason for Visit * Reason Comments Sinusitis Encounter Details Date Type Department Care Team (Latest Contact Info) Description 09/04/2019 9:00 AM PRINT CUTTER Office Visit [facility] AT [address] [phone] [facility] Acute rhinosinusitis (Primary Dx) Social History Tobacco Use Types Packs/Day Years Used Date Smoking Tobacco: Never Smokeless Tobacco: Never Sex and Gender Information Value Date Recorded Sex Assigned at Not on file Gender Identity Not on file Sexual Orientation Not on file documented as of this encounter Last Filed Vital Signs Vital Sign Reading Time Taken Comments Blood Pressure 132/84 09/04/2019 9:03 AM PRINT CUTTER Pulse 87 09/04/2019 9:03 AM PRINT CUTTER Temperature 36.8 ??C (98.3 ??F) 09/04/2019 9:03 AM CS T Respiratory Rate 16 09/04/2019 9:03 AM PRINT CUTTER Oxygen Saturation 98% 09/04/2019 9:03 AM PRINT CUTTER Inhaled Oxygen Concentration - - Weight 111.1 kg (245 lb) 09/04/2019 9:03 AM PRINT CUTTER Height 188 cm (6' 2 ) 09/04/2019 9:03 AM PRINT CUTTER Body Mass Index 31.46 09/04/2019 9:03 AM PRINT CUTTER documented in this encounter Patient Instructions * Patient Instructions* Mary Castellanos, SUPPORT MERCHANDISER-INDUSTRIAL MAINTENANCE TECH - 09/04/2019 9:09 AM PRINT CUTTER Images from the original note were not [...] REQUIRES IMMEDIATE EMERGENCY ATTENTION. Patient Education Sinusitis SALES HUNTER: Sinusitis is inflammation or infection of your [...] ask them during your visits. ?? Copyright [employer] 2019 Information is for End User's use only and may not be sold, redistributed or otherwise used for commercial purposes. All illustrations and images included in CareNotes?? are the copyrighted property of [employer] or [employer] The above information is an rehabilitation services aide only. It is not intended as medical advice for individual conditions or treatments. Talk to your doctor, nurse or pharmacist before following any medical regimen to see if it is safe and effective for you. T CUTTER documented in this encounter Progress Notes * [...] (FLONASE ALLERGY RELIEF) 50 MCG/ACT nasal spray [place] 2 sprays into eachnostril once daily Reasons: [...] file Gets together: Not on file Attends hindu service: Not on file Active member of [...] 0 DINORA De León 09/04/2019 9:15 AM T CUTTER documented in this encounter Plan of Treatment Not on file documented as of this encounter Visit Diagnoses Diagnosis Acute rhinosinusitis- Primary Acute sinusitis, unspecified documented in this encounter Care Teams Title Department Manager Relationship Specialty Start Date End Date Haris Hoffman DO PCP - General 05/23/19 documented as of this encounter
--- OUTSIDE RECORDS SUMMARY | 2024-07-02 10:25 | XMS_ITS | Encounter Summary ---
Author Organization [facility] Address [address] [place] [address] Care Team Providers Care Behavior Analyst Name Role Phone Haris Hoffman DO Primary Care Provider + Reason for Visit * Reason Onset Date Comments Infection 10/20/2019 Encounter Details Date Type Department Care Team (Late st Contact Info) Description 10/20/2019 Telephone [facility] [address], [address] [place] [address] Jose Lebron MD [facility] [place] [address] Infection Social History Tobacco Use Types Packs/Day [...] on filedocumented in this encounter Care Teams Behavior Analyst Relationship Specialty Start Date End Date Haris Hoffman DO PCP - General 05/23/19 documented as of this encounter
--- OUTSIDE RECORDS SUMMARY | 2024-07-02 10:25 | XMS_ITS | Encounter Summary ---
Author Organization [facility] Address [address] [facility] [place] [address] Care Team Providers Care Curb And Gutter Laborer Name Role Phone Haris Hoffman DO Primary Care Provider + Reason for Visit * Reason Onset Date Comments Follow-up 07/30/2019 Encounter Details Date Type Department Care Team (Late st Contact Info) Description 07/30/2019 Telephone [facility] AT [address] [address] Patricia Cheng APRN-CNP [address] [place] [address] Follow-up Social History Tobacco Use Types Packs/Day Years Used Date Smoking Tobacco: Never Smokeless Tobacco: Never Sex and Gender Information Value Date Recorded Sex Assigned at Not on file Gender Identity Not on file Sexual Orientation Not on file documented as of this encounter Miscellaneous Notes * Telephone Encounter - Patricia Cheng APRN-CNP - 07/30/2019 6:47 PM WASTEWATER TREATMENT PLANT INSTRUCTOR Courtesy follow-up phone call made to patient. Message left advising patient to call service [facility] [phone] if they have any questions or concerns. Patricia Cheng DNP, CONFERENCE PLANNER-BC EWATER TREATMENT PLANT INSTRUCTOR documented in this encounter Plan of Treatment Not on file documented as of this encounter Visit Diagnoses Not on filedocumented in this encounter Care Teams Curb And Gutter Laborer Relationship Specialty Start Date End Date Haris Hoffman DO PCP - General 05/23/19 documented as of this encounter
--- OUTSIDE RECORDS SUMMARY | 2024-07-02 10:25 | XMS_ITS | Referral Summary ---
Author Organization [facility] Address [address] [place] [address] Care Team Providers Care Senior Systems Software Engineer Name Role Phone Haris Hoffman Vicente HIDALGO Primary Care Provider + Source Comments [facility],non-owned Affiliates and Associated Physician Practices is amultiple site organization consisting of ambulatory clinics and hospital sitesin [place], [place], [place] and [place]. This disclosure is being madepursuant to the Care Everywhere program and may not contain all information available regarding this patient. Last updated 18.[facility] [email or web address] Allergies No known active allergies Medications * Be aware that medications may not be up to date on this document. Alwaysverify current medications with the patient. Medication Sig Dispensed Refills Start Date End Date Status Cholecalciferol (VITAMIN D PO) Active fluticasone propionate (FLONASE ALLERGY RELIEF) 50 MCG/ACT nasal sprayIndications:Al lergic Rhinitis [place] 2 sprays into each nostril once daily [...] COMPREHENSIVE METABOLIC PANEL (05/04/2022 9:45 AM T) [facility] Glucose 97 70 - 105 mg/dL 05/04/2022 10:10 AM [facility] Sodium 138 136 - 145 mmol/L 05/04/2022 10:10 AM [facility] Potassium 4.1 3.5 - 5.1 mmol/L 05/04/2022 10:10 AM [facility] Chloride 106 98 - 107 mmol/L 05/04/2022 10:10 AM [facility] CO2 20(L) 23 - 31 mmol/L 05/04/2022 10:10 AM [facility] Calcium 9.6 8.4 - 10.4 mg/dL 05/04/2022 10:10 AM [facility] Anion Gap 12 8 - 18 mmol/L 05/04/2022 10:10 AM [facility] BUN 9 8.9 - 20.6 mg/dL 05/04/2022 10:10 AM [facility] Creatinine 0.88 0.72 - 1.25 mg/dL 05/04/2022 10:10 AM [facility] Alkaline Phosphatase 88 40 - 150 U/L 05/04/2022 10:10 AM [facility] ALT 46 0 - 61 U/L 05/04/2022 10:10 AM [facility] AST 25 5 - 34 U/L 05/04/2022 10:10 AM [facility] Protein Total 7.5 6.4 - 8.3 gm/dL 05/04/2022 10:10 AM [facility] Albumin 4.4 3.5 - 5.2 gm/dL 05/04/2022 10:10 AM [facility] Bilirubin Total 0.7 0.2 - 1.2 mg/dL 05/04/2022 10:10 AM [facility] eGFR by CKD-EPI >90 >=90 mL/min/1.7 3 m2 05/04/2022 10:10 AM [facility] Blood BLOOD SPECIMEN / Unknown Venipuncture / Unknown 05/04/2022 9:45 AM CDT 05/04/2022 9:49 AM CDT Disha Mojica PA-C LAB - CHEMISTRY ORDERABLES [facility] [address] [place] [address] from Last 3 Months or Most Recently Relevant to Health Maintenance Care Teams Senior Systems Software Engineer Relationship Specialty Start Date End Date Haris Hoffman DO PCP - General 05/23/19
--- OUTSIDE RECORDS SUMMARY | 2024-07-02 10:25 | XMS_ITS | Encounter Summary ---
Author Organization [facility] Address [address] [place] [address] Care Team Providers Care Supervisor Molding Name Role Phone Haris Hoffman DO Primary Care Provider + Reason for Visit * Reason Onset Date Comments Refill Request 09/26/2019 Encounter Details Date Type Department Care Team (Late st Contact Info) Description 09/26/2019 Telephone [facility] [address] [facility] [facility] [address] [place] [address] Clare Howard, RN Refill Request Social History [...] he needed antibiotics. Case discussed with Dr. Lebron who prescribes a course of Augmentin. Prescription sent to pt preferred pharmacy. documented in this encounter Plan of Treatment Not on file documented as of this encounter Visit Diagnoses Not on filedocumented in this encounter Care Teams Supervisor Molding Relationship Specialty Start Date End Date Haris Hoffman DO PCP - General 05/23/19 documented as of this encounter
--- OUTSIDE RECORDS SUMMARY | 2024-07-02 10:25 | XMS_ITS | Encounter Summary ---
Author Organization [facility] Address [address] [place] [address] Care Team Providers Care Underground Roof Bolter Name Role Phone Unavailable Primary Care Provider Unavailabl e Reason for Visit * Reason Onset Date Comments Follow-up 05/01/2019 Encounter Details Date Type Department Care Team (Late st Contact Info) Description 05/01/2019 Telephone [facility] AT [address] [address] Abi Ruiz, BACK END DEVELOPER-[facility] [address] [address] Follow-up Social History [...]
--- OUTSIDE RECORDS SUMMARY | 2024-07-02 10:25 | XMS_ITS | Encounter Summary ---
Author Organization [facility] Address [address] [place] [address] Care Team Providers Care Toolroom Keeper Name Role Phone Unavailable Primary Care Provider Unavailabl e Reason for Visit * Reason Comments Sinusitis Encounter Details Date Type Department Care Team (Late st Contact Info) Description 02/27/2019 9:00 AM CDT Office Visit [facility] AT [address] [address] Provider, Earnestine Exp Nameoki Acute [...] Patient Instructions * Patient Instructions* Patricia Cheng, PHYSICIAN ASSISTANT-MANAGER PARK - 02/27/2019 9:09 AM CDT Images from [...] REQUIRES IMMEDIATE EMERGENCY ATTENTION. Patient Education Sinusitis BRAND DESIGNER: Sinusitis is inflammation or infection of your [...] ask them during your visits. ?? Copyright basno 2018 Information is for End User's use only and may not be sold, redistributed or otherwise used for commercial purposes. All illustrations and images included in CareNotes?? are the copyrighted property of King[employer]., 19[employer]. or Packetzoom The above information is an hat braider [...] (FLONASE ALLERGY RELIEF) 50 MCG/ACT nasal spray [place] 2 sprays into eachnostril once daily Reasons: [...]
--- OUTSIDE RECORDS SUMMARY | 2024-07-02 10:25 | XMS_ITS | Encounter Summary ---
Author Organization [facility] Address [address] [facility] [place] [address] Care Team Providers Care Production Zone Leader Name Role Phone Haris Hoffman DO Primary Care Provider + Reason for Visit * Reason Onset Date Comments Med Question 09/26/2019 Encounter Details Date Type Department Care Team (Late st Contact Info) Description 09/26/2019 Telephone [facility] [address], [address] [place] [address] Jose Lebron MD [address] [place] [address] [place] [address] Med Question Social History Tobacco [...] return call be made to his at [phone] documented in this encounter Plan of Treatment Not on file documented as of this encounter Visit Diagnoses Not on filedocumented in this encounter Care Teams Production Zone Leader Relationship Specialty Start Date End Date Haris Hoffman DO PCP - General 05/23/19 documented as of this encounter
--- OUTSIDE RECORDS SUMMARY | 2024-07-02 10:25 | XMS_ITS | Encounter Summary ---
Author Organization [facility] Address [address] [place] [address] Care Team Providers Care Citrus Fruit Packer Name Role Phone Unavailable Primary Care Provider Unavailabl e Reason for Visit * Reason Comments Sinusitis Encounter Details Date Type Department Care Team (Late st Contact Info) Description 04/29/2019 10:00 AM CDT Office Visit [facility] AT [address] [address] Provider, Earnestine Exp Nameoki Acute [...] Patient Instructions * Patient Instructions* Patricia Cheng, PHYSICAL SCIENCE TECHNICIAN-FORMAL WAITER/WAITRESS - 04/29/2019 10:01 AM CDT Images from [...] REQUIRES IMMEDIATE EMERGENCY ATTENTION. Patient Education Sinusitis VISION IMPAIRED TEACHER: Sinusitis is inflammation or infection of your [...] ask them during your visits. ?? Copyright Freedom Med[employer]ch 2019 Information is for End User's use only and may not be sold, redistributed or otherwise used for commercial purposes. All illustrations and images included in CareNotes?? are the copyrighted property of [employer] Store[employer]emitPro, Bespoke. or Springshot The above information is an educational sign language interpreter only. It is not intended as medical [...] (FLONASE ALLERGY RELIEF) 50 MCG/ACT nasal spray [place] 2 sprays into eachnostril once daily Reasons: [...] file Gets together: Not on file Attends episcopal service: Not on file Active member of [...]
--- OUTSIDE RECORDS SUMMARY | 2024-07-02 10:25 | XMS_ITS | Encounter Summary ---
Author Organization [facility] Address [address] [facility] [place] [address] Care Team Providers Care Strategic Debriefing Specialist Name Role Phone Haris Hoffman DO Primary Care Provider + Reason for Visit * Reason Onset Date Comments Follow-up 08/24/2019 Encounter Details Date Type Department Care Team (Late st Contact Info) Description 08/24/2019 Telephone [facility] AT [address] [address] Patricia Cheng APRN-CNP [address] [place] [address] Follow-up Social History Tobacco Use Types Packs/Day Years Used Date Smoking Tobacco: Never Smokeless Tobacco: Never Sex and Gender Information Value Date Recorded Sex Assigned at Not on file Gender Identity Not on file Sexual Orientation Not on file documented as of this encounter Miscellaneous Notes * Telephone Encounter - Patricia Cheng APRN-CNP - 08/24/2019 10:36 AM ELEVATOR ERECTOR Courtesy follow-up phone call made to patient. Message left advising patient to call service [facility] [phone] if they have any questions or concerns. Patricia Cheng DNP, SWEAT BOX ATTENDANT-BC ATOR ERECTOR documented in this encounter Plan of Treatment Not on file documented as of this encounter Visit Diagnoses Not on filedocumented in this encounter Care Teams Strategic Debriefing Specialist Relationship Specialty Start Date End Date Haris Hoffman DO PCP - General 05/23/19 documented as of this encounter
--- OUTSIDE RECORDS SUMMARY | 2024-07-02 10:25 | XMS_ITS | Encounter Summary ---
Author Organization [facility] Address [address] [place] [address] Care Team Providers Care Copy Lathe Operator Name Role Phone Haris Hoffman Primary Care Provider + Reason for Visit * Reason Comments Sinusitis 1 week Congestion draining down throat Cough Encounter Details Date Type Department Care Team (Late st Contact Info) Description 03/17/2021 4:40 PM CDT Office Visit [facility] AT [address] [phone] Provider, [facility] [employer] Screening for viral disease (Primary Dx); COVID-19 [...] Patient Instructions * Patient Instructions* Jesus Dominguez, LEAN CONSULTANT-PRODUCER - 03/17/2021 4:53 PM CDT While waiting for your COVID-19 test result or if your COVID-19 test is positive: ISOLATE: Stay home except to get medical care! Separate yourself from other people and pets in [facility]: ??? Do not go to work, [...] Gatherings with Friends and Family: ??? Attends Orthodoxy Services: ??? Active Member of Clubs or [...] SARS-CoV-2 Ag Positive (Abnormal) Negative Lot # [id number] Expiration Date 07/03/22 Instrument Serial Number [id number] COVID Internal Control Acceptable Acceptable Assessment: . Encounter Diagnoses Name Primary? Screening for viral disease Yes ??? COVID-19 Plan: While waiting for your COVID-19 test result or if your COVID-19 test is positive: ISOLATE: Stay home except to get medical care! Separate yourself from other people and pets in [facility]: ??? Do not go to work, [...] CDC. (Select all that apply) Answer: Cough [[id number]] Order Specific Question: Symptoms as described by CDC. (Select all that apply) Answer: Nasal congestion [[id number]] Order Specific Question: Hospitalized for COVID-19? Answer: [...] SARS-CoV-2 Ag Positive(A) Negative [facility] Lot # [id number] [facility] Expiration Date 07/03/22 [facility] Instrument Serial Number [id number] [facility] [place] COVID Internal Control Acceptable Acceptable [facility] Microbiology SPECIMEN FROM NASAL FOSSAE [...] assay are available upon request. Jesus Dominguez APRN-PRODUCER LAB - POINT OF CARE ORDERABLES [facility] [place] [address] [phone] documented in this encounter Visit Diagnoses Diagnosis Screening for viral disease- Primary Special screening examination for unspecified viral disease COVID-19 documented in this encounter Additional Health Concerns Infection Onset Date Last Indicated Resolved Time COVID-19 Under Investigation 03/17/2021 03/17/2021 03/17/2021 4:54 PM CDT COVID-19 Confirmed 03/17/2021 03/17/2021 09/12/202 1 4:33 AM CDT documented as of this encounter Care Teams Copy Lathe Operator Relationship Specialty Start Date End Date Haris Hoffman DO PCP - General 05/23/19 documented as of this encounter
--- OUTSIDE RECORDS SUMMARY | 2024-07-02 10:25 | XMS_ITS | Encounter Summary ---
Author Organization [facility] Address [address] [facility] [place] [address] Care Team Providers Care Medicine Worker Name Role Phone Haris Hoffman DO Primary Care Provider + Reason for Visit * Reason Comments Results Encounter Details Date Type Department Care Team (Late st Contact Info) Description 09/22/2019 9:45 AM CDT Office Visit [facility] [address] [address] Jose Lebron MD [address] [facility] [address] [place] [address] Acute recurrent pansinusitis (Primary Dx); Deviated septum [...] 10:51 AM CDT Thank you for visiting [facility] - Head & Neck Surgery. We [...] an appointment, please call our office at [phone] Sunday through Sunday from 8:30 am to4:30 pm. You can also request a routine appointment through your [employer] account. Prescription Refills Contact your pharmacy to [...] call the medical exchangeat and ask the long distance billing operator to page the ENT physician box person. *Caller ID blocking service will need to be turned off for your call to be returned. We also specialize in Hearing Aids, Allergy testing, swallowing disorders, voice problems, cancer diagnosis, and so much more. Visit our website at [email or web address] for information about our practice [...] (FLONASE ALLERGY RELIEF) 50 MCG/ACT nasal spray [place] 2 sprays into eachnostril once daily Reasons: [...] septum documented in this encounter Care Teams Medicine Worker Relationship Specialty Start Date End Date Haris Hoffman DO PCP - General 05/23/19 documented as of this encounter
--- OUTSIDE RECORDS SUMMARY | 2024-07-02 10:25 | XMS_ITS | Encounter Summary ---
Author Organization [facility] Address [address] [facility] [place] [address] Care Team Providers Care Exit Booth Agent Name Role Phone Unavailable Primary Care Provider Unavailabl e Reason for Visit * Reason Onset Date Comments Follow-up 03/01/2019 Encounter Details Date Type Department Care Team (Late st Contact Info) Description 03/01/2019 Telephone [facility] AT [address] [address] Patricia Cheng, INSTRUMENT PROCESSING TECH-[facility] [address] [place] [address] Follow-up Social History Tobacco Use [...]
--- OUTSIDE RECORDS SUMMARY | 2024-07-02 10:26 | XMS_ITS | Encounter Summary ---
Author Organization [facility] Address [address] [place] [address]. [place] [id number] [place] [address] Care Team Providers Care Petroleum Inspector Name Role Phone Haris Hoffman DO [...] st Contact Info) Description 07/30/2024 8:40 AM ANATOMICAL EMBALMER Office Visit [facility] Family & Internal Medicine - [address] [phone] Haris Hoffman DO [address] [place] [address] [phone] documented as of this encounter Procedures Procedure Name Priority Date/Time Associated Diagnosis Comments CT GENERIC 01/09/2024 documented in this encounter Results * CT GENERIC (01/09/2024) Anatomical Region Laterality Modality Other 01/09/2024 [facility] Scanned SCANNING Final Resu lt documented in this encounter Visit Diagnoses Not on filedocumented in this encounter Care Teams Petroleum Inspector Relationship Specialty Start Date End Date Haris Hofmfan DO [address] [place] [address] PCP - General FAMILY PRACTICE 05/09/19 documented as of this encounter
--- OUTSIDE RECORDS SUMMARY | 2024-07-02 10:26 | XMS_ITS | Encounter Summary ---
Author Organization [facility] Address [address] [place] [address]. [place] [phone] [place] [address] Care Team Providers Care Resident Associate Name Role Phone Haris Hoffman DO Primary [...] st Contact Info) Description 07/30/2024 8:40 AM NUT PACKER Office Visit [facility] Family & Internal Medicine [address] [phone] Haris Hoffman DO [address] [place] [address] [phone] documented as of this encounter Visit Diagnoses Not on filedocumented in this encounter Care Teams Resident Associate Relationship Specialty Start Date End Date Haris Hoffman DO [address] [place] [address] PCP - General FAMILY PRACTICE 05/09/19 documented as of this encounter
--- OUTSIDE RECORDS SUMMARY | 2024-07-02 10:26 | XMS_ITS | Encounter Summary ---
Author Organization [facility] Address [address] [place] [address]. [place] [address] Care Team Providers Care Flooring Helper Name Role Phone Haris Hoffman DO Primary Care Provider + Reason for Visit * Reason Onset Date Comments Record Request 10/04/2023 Encounter Details Date Type Department Care Team (Late st Contact Info) Description 10/04/2023 Telephone [facility] Family & Internal Medicine [place] [address] [place] [address] Haris Hoffman DO [address] [place] [address] Record Request Social History Tobacco [...] 10/04/2023 1:15 PM CDT I have faxed [facility] HIM for colonoscopy report documented in this encounter Plan of Treatment Upcoming Encounters Date Type Department Care Team (Late st Contact Info) Description 07/30/2024 8:40 AM SURGICAL PRODUCT SALES CONSULTANT Office Visit [facility] Family & Internal Medicine - [address] [phone] Haris Hoffman DO [facility] [place] [address] documented as of this encounter Visit Diagnoses Not on filedocumented in this encounter Care Teams Flooring Helper Relationship Specialty Start Date End Date Haris Hoffman DO [address] [place] [address] PCP - General FAMILY PRACTICE 05/09/19 documented as of this encounter
--- OUTSIDE RECORDS SUMMARY | 2024-07-02 10:26 | XMS_ITS | Encounter Summary ---
Author Organization [facility] Address [address] [place] [address]. [place], [place] [phone] [place] [address] Care Team Providers Care Jack Frame Tender Name Role Phone Haris Hoffman DO Primary [...] st Contact Info) Description 07/30/2024 8:40 AM TIMBER FALLER Office Visit [facility] Family & Internal Medicine - [address] [address] Haris Hoffman DO [address] [place] [address] documented as of this encounter Visit Diagnoses Not on filedocumented in this encounter Care Teams Jack Frame Tender Relationship Specialty Start Date End Date Haris Hoffman DO [address] [place] [address] PCP - General FAMILY PRACTICE 05/09/19 documented as of this encounter
--- OUTSIDE RECORDS SUMMARY | 2024-07-02 10:26 | XMS_ITS | Encounter Summary ---
Author Organization [facility] Address [address] [place] [address]. [place] [phone] [place] [address] Care Team Providers Care Plant Sprayer Name Role Phone Haris Hoffman DO Primary [...] st Contact Info) Description 07/30/2024 8:40 AM ADJUSTER ELECTRICAL CONTACTS Office Visit [facility] Family & Internal Medicine [address] [phone] Haris Hoffman DO [address] [place] [phone] documented as of this encounter Visit Diagnoses Not on filedocumented in this encounter Care Teams Plant Sprayer Relationship Specialty Start Date End Date Haris Hoffman DO [address] [place] [address] PCP - General FAMILY PRACTICE 05/09/19 documented as of this encounter
--- OUTSIDE RECORDS SUMMARY | 2024-07-02 10:26 | XMS_ITS | Encounter Summary ---
Author Organization [facility] Address [address] [place] [address]. [place] [address] Care Team Providers Care Heel Boom Operator Name Role Phone Haris Hoffman DO Primary Care Provider + Reason for Referral * Consultation (Routine) - Authorized Specialty Diagnoses / Procedures Referred By Anabel martin Referred To Contact OTOLARYNGOLOGY Diagnoses Chronic maxillary sinusitis Recurrent sinusitis Procedures OFFICE/OUTPATIENT NEW LOW MDM 30-44 MINUTES OFFICE/OUTPT VISIT,NEW,LEVL IV OFFICE/OUTPT VISIT,NEW,LEVL V OFFICE/OUTPT VISIT,EST,LEVL III OFFICE/OUTPT VISIT,EST,LEVL IV OFFICE/OUTPT VISIT,EST,LEVL V Haris Hoffman DO [address] [place] [address] Phone: tel: fax: [facility], [address] [address] Phone: tel: fax: Referral ID Status Reason Start Date Expiration Date Visits Requested Visits Authorized [id number] Authorized Specialty Services 12/19/2023 01/17/2025 100 100 * Imaging (Routine) - Closed Specialty Diagnoses / Procedures Referred By Anabel martin Referred To Contact RADIOLOGY Diagnoses Chronic maxillary sinusitis Recurrent sinusitis Procedures CT SINUS WO CON Haris Hoffman, DO [address] [place] [address] Phone: tel: fax: [facility] [address] [facility] [address] [place] [address] Phone: tel: fax: Referral ID Status Reason Start Date Expiration Date Visits Re quested Visits Authorized [id number] Closed 12/19/2023 12/19/2024 1 1 Reason for [...] Description 12/19/2023 1:20 PM CDT Office Visit [facility] Family & Internal Medicine - [place] [address] [place] [address] Haris Hoffman DO [address] [place] [address] Facial Pain (Sx off and on x4 [...] Months+ Quad (0.5 mL Prefilled Syringe) 10/03/2023 [facility] COVID-19 (ORIGINAL FORMULATION, PURPLE CAP) mRNA, LNP-S, [...] st Contact Info) Description 07/30/2024 8:40 AM TRIM SETTER HELPER Office Visit [facility] Family & Internal Medicine - [address] [phone] Haris Hoffman DO [address] [place] [address] Scheduled Orders Name Type Priority Associated Diagnoses [...] 171 <200 MG/DL 12/19/2023 8:23 PM CDT -[facility] TRIGLYCERIDES 185(H) <150 MG/DL 12/19/2023 8:23 PM CDT [facility] HDL 43 >40 MG/DL 12/19/2023 8:23 PM CDT [facility] LDL-C 91 <100 MG/DL 12/19/2023 8:23 PM CDT [facility] VLDL CALCULATION 37(H) 5 - 28 MG/DL 12/19/2023 8:23 PM CDT [facility] CHOL/HDL RATIO 4.0 0.0 - 4.0 12/19/2023 8:23 PM CDT [facility] LDL/HDL 2.1 0.41 - 2.13 12/19/2023 8:23 PM CDT [facility] NON HDL CHOLESTEROL 128 <140 MG/DL 12/19/2023 8:23 PM CDT [facility] 12/19/2023 2:24 PM CDT us Haris Hoffman DO LABORATORY Final Re sult [facility] [address] [place] [address], * (ABNORMAL) HEPATIC FUNCTION PANEL (12/19/2023 2:24 PM CDT) BILIRUBIN TOTAL S/P/B 0.9 0.2 - 1.0 MG/DL 12/19/2023 8:23 PM CDT [facility] BILIRUBIN DIRECT S/P/B 0.2 0.0 - 0.2 MG/DL 12/19/2023 8:23 PM CDT [facility] ALKALINE PHOSPHATASE S/P/B 91 45 - 115 U/L 12/19/2023 8:23 PM CDT [facility] AST 25 15 - 37 U/L 12/19/2023 8:23 PM CDT [facility] ALT 80(H) 16 - 63 U/L 12/19/2023 8:23 PM CDT [facility] TOTAL PROTEIN S/P/B 7.5 6.4 - 8.2 G/DL 12/19/2023 8:23 PM CDT [facility] ALBUMIN S/P/B 4.1 3.4 - 5.0 G/DL 12/19/2023 8:23 PM CDT [facility] 12/19/2023 2:24 PM CDT Haris Hoffman DO LABORATORY [facility] [address] [place] [address], * (ABNORMAL) CBC W/DIFF AUTOMATED (12/19/2023 2:24 PM CDT) WBC 15.55(H) 4.00 - 10.80 x10'3/uL 12/19/2023 8:00 PM CDT [facility] RBC 4.57 4.50 - 6.10 x10'6/uL 12/19/2023 8:00 PM CDT [facility] HGB 14.5 13.0 - 18.0 G/DL 12/19/2023 8:00 PM CDT [facility] HCT 42.4 37.0 - 52.0 % 12/19/2023 8:00 PM CDT [facility] MCV 92.8 78.0 - 100.0 FL 12/19/2023 8:00 PM CDT [facility] MCH 31.7(H) 27.0 - 31.0 PG 12/19/2023 8:00 PM CDT [facility] MCHC 34.2 33.0 - 36.0 G/DL 12/19/2023 8:00 PM CDT [facility] RDW 12.3 11.5 - 14.5 % 12/19/2023 8:00 PM CDT [facility] PLT 387(H) 150 - 350 x10'3/uL 12/19/2023 8:00 PM CDT [facility] MPV 9.2 7.4 - 10.4 FL 12/19/2023 8:00 PM CDT [facility] DIFFERENTIAL TYPE AUTOMATED DIFFERENTIAL 12/19/2023 8:00 PM CDT [facility] NEUTROPHILS % 69.1 % 12/19/2023 8:00 PM CDT [facility] LYMPHOCYTES % 21.8 % 12/19/2023 8:00 PM CDT [facility] MONOCYTES % 6.0 % 12/19/2023 8:00 PM CDT [facility] EOSINOPHILS % 2.4 % 12/19/2023 8:00 PM CDT [facility] BASOPHILS % 0.2 % 12/19/2023 8:00 PM CDT [facility] IMMATURE GRANS % 0.5 % 12/19/2023 8:00 PM CDT [facility] ABS. NEUTROPHILS 10.74(H) 1.60 - 8.30 x10'3/uL 12/19/2023 8:00 PM CDT [facility] ABS. LYMPHOCYTES 3.39 0.80 - 4.70 x10'3/uL 12/19/2023 8:00 PM CDT [facility] ABS. MONOCYTES 0.93 0.00 - 1.50 x10'3/uL 12/19/2023 8:00 PM CDT [facility] ABS. EOSINOPHILS 0.38 0.00 - 0.40 x10'3/uL 12/19/2023 8:00 PM CDT [facility] ABS. BASOPHILS 0.03 0.00 - 0.20 x10'3/uL 12/19/2023 8:00 PM CDT [facility] ABS. IMMATURE GRANULOCYTES 0.08(H) 0.00 - 0.03 x10'3/uL 12/19/2023 8:00 PM CDT [facility] 12/19/2023 2:24 PM CDT us Haris Hoffman DO LABORATORY Final Re sult [facility] [address] [place] [address], documented in this encounter Visit Diagnoses Diagnosis Chronic maxillary sinusitis- Primary Snoring Other dyspnea and respiratory abnormality Recurrent sinusitis Unspecified sinusitis (chronic) Elevated liver enzymes Nonspecific elevation of levels of transaminase or lactic acid dehydrogenase (LDH) Leukocytosis, unspecified type BMI 34.0-34.9,adult Body Mass Index 34.0-34.9, adult Hyperlipidemia, unspecified hyperlipidemia type documented in this encounter Care Teams Heel Boom Operator Relationship Specialty Start Date End Date Haris Hoffman DO [address] [place] [id number] PCP - General FAMILY PRACTICE 05/09/19 documented as of this encounter
--- OUTSIDE RECORDS SUMMARY | 2024-07-02 10:26 | XMS_ITS | Clinical Summary ---
Author Organization [facility] Address [address] [place] [address]. [place], [place] [phone] [place] [address] Care Team Providers Care Magnetic Tape Typewriter Operator Name Role Phone Sangkenishajesus alberto Haris Vicente [...] st Contact Info) Description 07/30/2024 8:40 AM LOOM WINDER TENDER Office Visit [facility] Family & Internal Medicine - [address] [phone] Haris Hoffman, [address] [place] [phone] Health Maintenance Due Date Last Done Comments [...] VE NON-REACT [place] 11/21/2021 6:32 PM CDT [facility] Comment: ANTIBODIES TO HCV NOT DETECTED. DOES NOT EXCLUDE THE POSSIBILITY OF EXPOSURE TO HCV. 11/21/2021 7:56 AM CDT us Haris Hoffman DO LABORATORY Final Re sult [facility] [address] [place] [address], [place] [phone] [id number] * COLONOSCOPY GENERIC (SCAN ORDER) (10/18/2018) 10/18/2018 us Doc Med [facility] Scanned SCANNING Final Resu lt from Last 3 Months or Most Recently Relevant to Health Maintenance Insurance [facility] Care Teams Magnetic Tape Typewriter Operator Relationship Specialty Start Date End Date Haris Hoffman DO [address] [place] [address] PCP - General FAMILY PRACTICE 05/09/19
--- OUTSIDE RECORDS SUMMARY | 2024-07-02 10:26 | XMS_ITS | Encounter Summary ---
Author Organization [facility] Address [address] [place] [address]. [place] [phone] [place] [address] Care Team Providers Care Bead Wire Insulator Name Role Phone Haris Hoffman DO Primary [...] st Contact Info) Description 07/30/2024 8:40 AM CITY MAINTENANCE MANAGER Office Visit [facility] Family & Internal Medicine [address] [phone] Haris Hoffman DO [address] [place] [phone] documented as of this encounter Visit Diagnoses Not on filedocumented in this encounter Care Teams Bead Wire Insulator Relationship Specialty Start Date End Date Haris Hoffman DO [address] [place] [address] PCP - General FAMILY PRACTICE 05/09/19 documented as of this encounter
--- OUTSIDE RECORDS SUMMARY | 2024-07-02 10:26 | XMS_ITS | Encounter Summary ---
Author Organization [facility] Address [address] [place] [address] Care Team Providers Care Painter Spring Name Role Phone Unavailable Primary Care Provider Unavailabl e Reason for Visit * Reason Comments Sinusitis Encounter Details Date Type Department Care Team (Late st Contact Info) Description 10/27/2016 10:00 AM CDT Office Visit [facility] [address] [phone] Provider, Earnestine Exp Nameoki Acute [...] hours or if worsening of symptoms Sinusitis SPORTS COMPLEX ATTENDANT: Sinusitis is inflammation or infection of your [...] ask them during your visits. ?? 2016 [email or web address]. Information is for End User's use only and may not be sold, redistributed or otherwise used for commercial purposes. All illustrations and images included in CareNotes?? are the copyrighted property of [employer] or [employer] The above information is an educational/development assistant only. It is not intended as medical advice for individual conditions or treatments. Talk to your doctor, nurse or pharmacist before following any medical regimen to see if it is safe and effective for you. documented in this encounter Progress Notes * Keily Naik APRN-CNP - 10/27/2016 10:17 AM CDT [facility] Chief Complaint Patient presents [...] fluticasone propionate (FLONASE) 50 MCG/ACT nasal spray [place] 1 [place] into each nostril 2 timesdaily 1 Bottle [...] propionate (FLONASE) 50 MCG/ACT nasal spray Sig: [place] 1 [place] into each nostril 2 times daily Dispense: [...]
--- OUTSIDE RECORDS SUMMARY | 2024-07-02 10:26 | XMS_ITS | Encounter Summary ---
Author Organization [facility] Address [address] [place] [address]. [place] [address] Care Team Providers Care Farm Manager Name Role Phone Haris Hoffman DO Primary Care Provider + Reason for Visit * Reason Onset Date Comments Error 02/07/2024 Encounter Details Date Type Department Care Team (Late Contact Info) Description 02/07/2024 Telephone [facility] Family & Internal Medicine [place] [phone] [place] [phone] Haris Hoffman DO [address] [place] [address] Error Social History Tobacco Use [...] (Late Contact Info) Description 07/30/2024 8:40 AM COCONUT CANDY MAKER Office Visit [facility] Family & Internal Medicine - [place] [address] [place] [address] Haris Hoffman DO [address] [place] [address] documented as of this encounter Visit Diagnoses Not on filedocumented in this encounter Care Teams Farm Manager Relationship Specialty Start Date End Date Haris Hoffman DO [address] [place] [address] PCP - General FAMILY PRACTICE 05/09/19 documented as of this encounter
--- OUTSIDE RECORDS SUMMARY | 2024-07-02 10:26 | XMS_ITS | Encounter Summary ---
Author Organization [facility] Address [address] [place] [address]. [place], [place] [phone] [place] [address] Care Team Providers Care Hair Mixer Name Role Phone Haris Hoffman DO Primary [...] st Contact Info) Description 07/30/2024 8:40 AM SHIRT CLEANER Office Visit [facility] Family & Internal Medicine - [address] [phone] Haris Hoffman DO [address] [place] [phone] documented as of this encounter Visit Diagnoses Not on filedocumented in this encounter Care Teams Hair Mixer Relationship Specialty Start Date End Date Haris Hoffman DO [address] [place] [address] PCP - General FAMILY PRACTICE 05/09/19 documented as of this encounter
--- OUTSIDE RECORDS SUMMARY | 2024-07-02 10:26 | XMS_ITS | Encounter Summary ---
Author Organization [facility] Address [address] [place] [address]. [place] [address] Care Team Providers Care Steam Press Operator Name Role Phone Haris Hoffman DO Primary Care Provider + Reason for Visit * Reason Onset Date Comments Radiology Results 01/15/2024 Encounter Details Date Type Department Care Team (Late st Contact Info) Description 01/15/2024 Telephone [facility] Family & Internal Medicine [place] [phone] [place] [phone] Haris Hoffman DO [address] [place] [address] Radiology Results Social History Tobacco [...] Resendiz MA - 01/22/2024 7:39 AM CDT [employer] message sent to pt with results and [...] st Contact Info) Description 07/30/2024 8:40 AM SENIOR JAVA ENGINEER Office Visit [facility] Family & Internal Medicine - [place] [address] [place] [address] Haris Hoffman DO [address] [place] [address] documented as of this encounter Visit Diagnoses Diagnosis Deviated septum- Primary Deviated nasal septum Ethmoid sinusitis, unspecified chronicity documented in this encounter Care Teams Steam Press Operator Relationship Specialty Start Date End Date Haris Hoffman DO [address] [place] [address] PCP - General FAMILY PRACTICE 05/09/19 documented as of this encounter
--- OUTSIDE RECORDS SUMMARY | 2024-07-02 10:26 | XMS_ITS | Patient Health Record ---
Author Organization [facility] Address [address] [place] [address] Care Team Providers Care Shirt Turner Name Role Phone Boni Romero Primary Care Provider Manuelito Larson [phone] Allergies No Known Allergies Results Component Value Reference Range Notes 12 Panel Urine Drug Screen Reviewed date:10/10/2023 09:14:30 AM Interpretation: Performing Lab: Notes/Report: THC POS HUGO neg MOP (OPI) neg AMP neg MET neg BAR neg BZO neg MDMA neg MTD neg OXY neg PCP neg BUP neg TSH+Free T4* Reviewed date:10/02/2023 08:08:46 AM Interpretation: Performing Lab:[facility], [address] [facility], Phone - [phone], Director - PhDLianeti Notes/Report: TSH 2.620 0.450-4.500 uIU/mL T4,Free(Direct) 1.40 0.82-1.77 ng/dL Hemoglobin A1c Reviewed date:10/02/2023 08:08:35 AM Interpretation: Performing Lab:[facility] [place], [address] [facility], [place], Phone - [phone], Director - PhDRicdodieuti Notes/Report: Hemoglobin A1c 5.5 Reference Range: [place] Diabetes Association (ADA) Guidelines: <5.7: Decreased risk for diabetes 5.7 - 6.4: Increased risk for diabetes >6.4: Ongoing Hyperglycemia of any cause <7.0: Glycemic control for adults with diabetes Estimated Average Glucose 111 Vitamin D, 25-Hydroxy* Reviewed date:10/02/2023 08:10:05 AM Interpretation: Performing Lab:[facility] [place], [address] [facility], Phone - [phone], [facility] Notes/Report: Vitamin D, 25-Hydroxy 28.7 30.0-100.0 ng/mL Vitamin D deficiency has been defined by the Calder of Medicine and an Endocrine Society practice guideline as a level of serum 25-OH vitamin D less than 20 ng/mL (1,2). The Endocrine Society went on to further define vitamin D insufficiency as a level between 21 and 29 ng/mL (2). 1. IOM (Calder of Medicine). 2010. Dietary reference intakes for calcium and D. [place]: The National Academies Press. 2. Dee MF, Elisa DAVILA, Eusebia DAVIS, et al. Evaluation, treatment, and prevention of vitamin D deficiency: an Endocrine Society clinical practice guideline. JCEM. 2010; 96(7):1911-30. Vitamin B12 and Folate Reviewed date:10/02/2023 08:08:24 AM Interpretation: Performing Lab:[facility] [place], [address] [facility], Phone - [phone], Director [facility] Notes/Report: Vitamin B12 656 837-9606 pg/mL Folate (Folic Acid), Serum 7.4 >3.0 ng/mL A serum folate concentration of less than 3.1 ng/mL is considered to represent clinical deficiency. [place] (Eskalith(R)), Serum Reviewed date:10/12/2023 11:38:34 AM Interpretation: Performing Lab:[facility] [place], [address] [facility], Phone - [phone], Director [facility] Notes/Report: [place] (Eskalith(R)), Serum 0.9 0.5-1.2 mmol /L A concentration of 0.5-0.8 mmol/L is advised for long-term use; concentrations of up to 1.2 mmol/L may be necessary during acute treatment. Detection Limit = 0.1 <0.1 indicates None Detected [place] (Eskalith(R)), Serum Reviewed date:04/17/2024 09:59:04 AM Interpretation: Performing [facility], [address] [place] [address], Phone - [phone], Director - [facility] Notes/Report: [place] (Eskalith(R)), Serum 0.8 0.5-1.2 mmol /L A concentration of 0.5-0.8 mmol/L is advised for long-term use; concentrations of up to 1.2 mmol/L may be necessary during acute treatment. Detection Limit = 0.1 <0.1 indicates None Detected [place] (Eskalith(R)), Serum Reviewed date:10/02/2023 10:00:59 AM Interpretation: Performing Lab:[facility], Phone - [phone], Director - [facility] Notes/Report: [place] (Eskalith(R)), Serum 0.4 0.5-1.2 mmol /L A concentration of 0.5-0.8 mmol/L is advised for long-term use; concentrations of up to 1.2 mmol/L may be necessary during acute treatment. Detection Limit = 0.1 <0.1 indicates None Detected CBC With Differential/Platel et* Reviewed date:10/02/2023 08:12:40 AM Interpretation: Performing Lab:[facility], [address] [place] [address], Phone - [phone], Director - [facility] Notes/Report: WBC 16.5 3.4-10.8 x10E3/uL RBC 4.86 4.14-5.80 x10E6/uL Hemoglobin 15.4 13.0-17.7 g/dL Hematocrit 45.0 37.5-51.0 % MCV 93 79-97 fL MCH 31.7 26.6-33.0 pg MCHC 34.2 31.5-35.7 g/dL RDW 12.8 11.6-15.4 % Platelets 456 150-450 x10E3/uL Neutrophils 73 Not Estab. % Lymphs 20 Not Estab. % Monocytes 6 Not Estab. % Eos 1 Not Estab. % Basos 0 Not Estab. % Neutrophils (Absolute) 11.9 1.4-7.0 x10E3/uL Lymphs (Absolute) 3.3 0.7-3.1 x10E3/uL Monocytes(Absolute) 1.0 0.1-0.9 x10E3/uL Eos (Absolute) 0.1 0.0-0.4 x10E3/uL Baso (Absolute) 0.1 0.0-0.2 x10E3/uL Immature Granulocytes 0 Not Estab. % Immature Grans (Abs) 0.0 0.0-0.1 x10E3/uL CMP 14 Comprehensive Metabol ic Panel* Reviewed date:10/02/2023 08:11:18 AM Interpretation: Performing Lab:[facility] [place], [address] [facility], Phone - [phone], Director - [facility] Notes/Report: Glucose 100 70-99 mg/dL BUN 8 6-24 mg/dL Creatinine 0.97 0.76-1.27 mg/dL eGFR 98 >59 mL/min/1.73 BUN/Creatinine Ratio 8 9-20 Sodium 136 134-144 mmol/L Potassium 4.0 3.5-5.2 mmol/L Chloride 99 96-106 mmol/L Carbon Dioxide, Total 22 20-29 mmol/L Calcium 9.3 8.7-10.2 mg/dL Protein, Total 7.1 6.0-8.5 g/dL Albumin 4.5 4.1-5.1 g/dL Globulin, Total 2.6 1.5-4.5 g/dL A/G Ratio 1.7 1.2-2.2 Bilirubin, Total 0.4 0.0-1.2 mg/dL Alkaline Phosphatase 122 44-121 IU/L AST (SGOT) 50 0-40 IU/L ALT (SGPT) 139 0-44 IU/L Reason For Referral No Information Medications Medication SIG (Take, Route, Frequency, Duration) Notes Start Date End Date Status Ondansetron HCl 4 MG 1 tablet Orally Once a day for 30 days As needed for nausea 03/27/2024 Active diazePAM 2 MG 1 tablet as needed for anxiety Orally Twice a day for 5 days 06/30/2024 Active Dexmethylphenidate HCl ER 15 MG 1 capsule in the morning Orally Once a day. Please fill on or after June 18, 2024. for 30 days 06/10/2024 Active buPROPion HCl ER (XL) 300 MG 1 tablet in the morning Orally Once a day 06/03/2021 Active Propranolol HCl ER 60 MG 1 capsule at bedtime Orally Once a day for 30 days 09/27/2023 Active [place] Carbonate ER 450 MG 3 tablets at bedtime Orally Once a day Active Vraylar 3 MG 1 capsule Orally Once a day for 30 days Client instructed to double up on 1.5 mg capsules until new script is approved/filled. 04/22/2024 Active QUEtiapine Fumarate 50 MG 0.5 - 1 tablet at bedtime Orally Once a day 11/08/2023 Active Dexmethylphenidate HCl ER 15 MG 1 capsule in the morning Orally Once a day. Please fill on or after June 13, 2024. 05/12/2024 Active Venlafaxine HCl ER 75 MG 1 capsule with food Orally Once a day 10/26/2023 Active Eszopiclone 1 MG 1 tablet immediately before bedtime Orally Once a day 06/10/2024 Active Social History Tobacco Use: Social History Observation Description Date Details (start date - stop date) Never Smoker NA - NA Sex Assigned At : Social History Observation Description Sex Assigned At Male Dont use, Tobacco Use/Smoking Question Answer Notes Are you a nonsmoker Section Notes: Legal: Has a criminal damage [...] brother Emotional: Mother- always , teacher. Sexual: baby formula mixer , friends of mother Job: [employer] in [place]. Works evenings. : none Legal: Has a criminal damage charge at [...] brother Emotional: Mother- always , teacher. Sexual: baby formula mixer , friends of mother Legal: Has a criminal damage charge at [...] brother Emotional: Mother- always , teacher. Sexual: baby formula mixer , friends of mother Job: [employer] in [place]. Works evenings. : none Social: parents shortly [...] school. . States he has a GED. Legal: Has a criminal damage charge at [...] brother Emotional: Mother- always , teacher. Sexual: baby formula mixer , friends of mother Job: [employer] in [place]. Works evenings. : none Social: parents shortly [...] school. . States he has a GED. Legal: Has a criminal damage charge at [...] brother Emotional: Mother- always , teacher. Sexual: baby formula mixer , friends of mother Job: [employer] in [place]. Works evenings. : none Social: parents shortly [...] school. . States he has a GED. Legal: Has a criminal damage charge at [...] brother Emotional: Mother- always , teacher. Sexual: baby formula mixer , friends of mother Job: [employer] in [place]. Works evenings. : none Social: parents shortly [...] school. . States he has a GED. Legal: Has a criminal damage charge at [...] brother Emotional: Mother- always , teacher. Sexual: baby formula mixer , friends of mother Job: [employer] in [place]. Works evenings. : none Social: parents shortly [...] school. . States he has a GED. Legal: Has a criminal damage charge at [...] brother Emotional: Mother- always , teacher. Sexual: baby formula mixer , friends of mother Job: [employer] in [place]. Works evenings. : none Social: parents shortly [...] school. . States he has a GED. Legal: Has a criminal damage charge at [...] brother Emotional: Mother- always , teacher. Sexual: baby formula mixer , friends of mother Job: [employer] in [place]. Works evenings. : none Social: parents shortly [...] school. . States he has a GED. Legal: Has a criminal damage charge at [...] brother Emotional: Mother- always , teacher. Sexual: baby formula mixer , friends of mother Job: [employer] in [place]. Works evenings. : none Social: parents shortly [...] school. . States he has a GED. Legal: Has a criminal damage charge at [...] brother Emotional: Mother- always , teacher. Sexual: baby formula mixer , friends of mother Job: [employer] in [place]. Works evenings. : none Social: parents shortly [...] school. . States he has a GED. Legal: Has a criminal damage charge at [...] brother Emotional: Mother- always , teacher. Sexual: baby formula mixer , friends of mother Job: [employer] in [place]. Works evenings. : none Social: parents shortly [...] school. . States he has a GED. Legal: Has a criminal damage charge at [...] brother Emotional: Mother- always , teacher. Sexual: baby formula mixer , friends of mother Job: [employer] in [place]. Works evenings. : none Social: parents shortly [...] school. . States he has a GED. Legal: Has a criminal damage charge at [...] brother Emotional: Mother- always , teacher. Sexual: baby formula mixer , friends of mother Job: [employer] in [place]. Works evenings. : none Social: parents shortly [...] school. . States he has a GED. Legal: Has a criminal damage charge at [...] brother Emotional: Mother- always , teacher. Sexual: baby formula mixer , friends of mother Job: [employer] in [place]. Works evenings. : none Social: parents shortly [...] school. . States he has a GED. Legal: Has a criminal damage charge at [...] brother Emotional: Mother- always , teacher. Sexual: baby formula mixer , friends of mother Job: [employer] in [place]. Works evenings. : none Social: parents shortly [...] school. . States he has a GED. Legal: Has a criminal damage charge at [...] brother Emotional: Mother- always , teacher. Sexual: baby formula mixer , friends of mother Job: [employer] in [place]. Works evenings. : none Social: parents shortly [...] school. . States he has a GED. Legal: Has a criminal damage charge at [...] brother Emotional: Mother- always , teacher. Sexual: baby formula mixer , friends of mother Job: [employer] in [place]. Works evenings. : none Social: parents shortly [...] school. . States he has a GED. Legal: Has a criminal damage charge at [...] brother Emotional: Mother- always , teacher. Sexual: baby formula mixer , friends of mother Job: [employer] in [place]. Works evenings. : none Social: parents shortly [...] school. . States he has a GED. Legal: Has a criminal damage charge at [...] brother Emotional: Mother- always , teacher. Sexual: baby formula mixer , friends of mother Job: [employer] in [place]. Works evenings. : none Social: parents shortly [...] school. . States he has a GED. Legal: Has a criminal damage charge at [...] brother Emotional: Mother- always , teacher. Sexual: baby formula mixer , friends of mother Job: [employer] in [place]. Works evenings. : none Social: parents shortly [...] school. . States he has a GED. Legal: Has a criminal damage charge at [...] brother Emotional: Mother- always , teacher. Sexual: baby formula mixer , friends of mother Job: [employer] in [place]. Works evenings. : none Legal: Has a criminal damage charge at [...] brother Emotional: Mother- always , teacher. Sexual: baby formula mixer , friends of mother Legal: Has a criminal damage charge at [...] brother Emotional: Mother- always , teacher. Sexual: baby formula mixer , friends of mother Job: [employer] in [place]. Works evenings. : none Social: parents shortly [...] school. . States he has a GED. Legal: Has a criminal damage charge at [...] brother Emotional: Mother- always , teacher. Sexual: baby formula mixer , friends of mother Job: [employer] in [place]. Works evenings. : none Social: parents shortly [...] school. . States he has a GED. Legal: Has a criminal damage charge at [...] brother Emotional: Mother- always , teacher. Sexual: baby formula mixer , friends of mother Job: [employer] in [place]. Works evenings. : none Social: parents shortly [...] school. . States he has a GED. Legal: Has a criminal damage charge at [...] brother Emotional: Mother- always , teacher. Sexual: baby formula mixer , friends of mother Job: [employer] in [place]. Works evenings. : none Social: parents shortly [...] school. . States he has a GED. Legal: Has a criminal damage charge at [...] brother Emotional: Mother- always , teacher. Sexual: baby formula mixer , friends of mother Job: [employer] in [place]. Works evenings. : none Social: parents shortly [...] school. . States he has a GED. Legal: Has a criminal damage charge at [...] brother Emotional: Mother- always , teacher. Sexual: baby formula mixer , friends of mother Job: [employer] in [place]. Works evenings. : none Social: parents shortly [...] school. . States he has a GED. Legal: Has a criminal damage charge at [...] brother Emotional: Mother- always , teacher. Sexual: baby formula mixer , friends of mother Job: [employer] in [place]. Works evenings. : none Social: parents shortly [...] school. . States he has a GED. Legal: Has a criminal damage charge at [...] brother Emotional: Mother- always , teacher. Sexual: baby formula mixer , friends of mother Job: [employer] in [place]. Works evenings. : none Social: parents shortly [...] school. . States he has a GED. Legal: Has a criminal damage charge at [...] brother Emotional: Mother- always , teacher. Sexual: baby formula mixer , friends of mother Job: [employer] and [employer] in [place]. Works evenings. : none Social: parents shortly [...] school. . States he has a GED. Legal: Has a criminal damage charge at [...] brother Emotional: Mother- always , teacher. Sexual: baby formula mixer , friends of mother Job: [employer] in [place]. Works evenings. : none Social: parents shortly [...] school. . States he has a GED. Legal: Has a criminal damage charge at [...] brother Emotional: Mother- always , teacher. Sexual: baby formula mixer , friends of mother Job: [employer] in [place]. Works evenings. : none Social: parents shortly [...] school. . States he has a GED. Legal: Has a criminal damage charge at [...] brother Emotional: Mother- always , teacher. Sexual: baby formula mixer , friends of mother Job: [employer] in [place]. Works evenings. : none Social: parents shortly [...] school. . States he has a GED. Legal: Has a criminal damage charge at [...] brother Emotional: Mother- always , teacher. Sexual: baby formula mixer , friends of mother Job: [employer] in [place]. Works evenings. : none Social: parents shortly [...] school. . States he has a GED. Legal: Has a criminal damage charge at [...] brother Emotional: Mother- always , teacher. Sexual: baby formula mixer , friends of mother Job: [employer] in [place]. Works evenings. : none Legal: Has a criminal damage charge at [...] brother Emotional: Mother- always , teacher. Sexual: baby formula mixer , friends of mother Legal: Has a criminal damage charge at [...] brother Emotional: Mother- always , teacher. Sexual: baby formula mixer , friends of mother Job: [employer] in [place]. Works evenings. : none Social: parents shortly [...] school. . States he has a GED. Legal: Has a criminal damage charge at [...] brother Emotional: Mother- always , teacher. Sexual: baby formula mixer , friends of mother Job: [employer] in [place]. Works evenings. : none Social: parents shortly [...] school. . States he has a GED. Legal: Has a criminal damage charge at [...] brother Emotional: Mother- always , teacher. Sexual: baby formula mixer , friends of mother Job: [employer] in [place]. Works evenings. : none Social: parents shortly [...] school. . States he has a GED. Legal: Has a criminal damage charge at [...] brother Emotional: Mother- always , teacher. Sexual: baby formula mixer , friends of mother Job: [employer] in [place]. Works evenings. : none Social: parents shortly [...] school. . States he has a GED. Legal: Has a criminal damage charge at [...] brother Emotional: Mother- always , teacher. Sexual: baby formula mixer , friends of mother Job: [employer] in [place]. Works evenings. : none Social: parents shortly [...] school. . States he has a GED. Legal: Has a criminal damage charge at [...] brother Emotional: Mother- always , teacher. Sexual: baby formula mixer , friends of mother Job: [employer] in [place]. Works evenings. : none Social: parents shortly [...] school. . States he has a GED. Legal: Has a criminal damage charge at [...] brother Emotional: Mother- always , teacher. Sexual: baby formula mixer , friends of mother Job: [employer] in [place]. Works evenings. : none Social: parents shortly [...] school. . States he has a GED. Legal: Has a criminal damage charge at [...] brother Emotional: Mother- always , teacher. Sexual: baby formula mixer , friends of mother Job: [employer] in [place]. Works evenings. : none Social: parents shortly [...] school. . States he has a GED. Legal: Has a criminal damage charge at [...] brother Emotional: Mother- always , teacher. Sexual: baby formula mixer , friends of mother Job: [employer] in [place]. Works evenings. : none Social: parents shortly [...] school. . States he has a GED. Legal: Has a criminal damage charge at [...] brother Emotional: Mother- always , teacher. Sexual: baby formula mixer , friends of mother Job: [employer] in [place]. Works evenings. : none Social: parents shortly [...] school. . States he has a GED. Legal: Has a criminal damage charge at [...] brother Emotional: Mother- always , teacher. Sexual: baby formula mixer , friends of mother Job: [employer] in [place]. Works evenings. : none Social: parents shortly [...] school. . States he has a GED. 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), inattentive type (F90.0) Active confirmed Problem 62071501 ROSY (generalized anxiety disorder) (F41.1) Active confirmed Problem Medication monitoring (591867998) Medication monitoring encounter (Z51.81) Active confirmed Problem Obesity (161144630) Obesity, unspecified classification, unspecified obesity type, unspecified whether serious comorbidity present (E66.9) Active confirmed Problem Recurrent major depression (61503537) Major depressive disorder, recurrent, in remission, unspecified (F33.40) Inactive confirmed Problem Recurrent major depression in remission (78144257) MDD (major depressive disorder), recurrent, in partial remission (F33.41) Inactive confirmed Problem Severe recurrent major depression without psychotic features (20038770) MDD (major depressive disorder), recurrent episode, severe (F33.2) Inactive confirmed Problem Bipolar affective disorder, currently manic, moderate (934256691) Bipolar 1 disorder with moderate rachel (F31.12) Problem resolved confirmed Vital Signs Heart Rate 84 /min 10/18/2023 Respiratory Rate 16 /min 10/04/2023 Oximetry 93 % 10/18/2023 Blood pressure diastolic 88 mm Hg 10/18/2023 Height 73 in 10/18/2023 Blood pressure systolic 128 mm Hg 10/18/2023 Weight 253.8 lbs 10/18/2023 BMI 33.48 kg/m2 10/18/2023 Encounters Encounter Location Date Provider Diagnosis [address] [place] [address] 06/27/2024 Boni Romero ROSY (generalized anxiety disorder) F41.[address] [place] [address] 08/27/2023 Boni Romero [address] [place] [address] 09/17/2023 Boni Romero Bipolar 1 disorder F31.[address] [place] [address] 09/24/2023 Boni Romero [address] [place] [address] 10/02/2023 Boni Romero [address] [address] 10/10/2023 Boni Romero ADHD (attention deficit hyperactivity disorder), inattentive type F90.[address] [address] 10/22/2023 Boni Romero ROSY (generalized anxiety disorder) F41.[address] [place] [address] 10/25/2023 Boni Romero Bipolar 1 disorder F31.[address] [address] 11/08/2023 Boni Romero Bipolar 1 disorder F31.[address] [address] 12/14/2023 Boni Romero ADHD (attention deficit hyperactivity disorder), inattentive type F90.0 [facility] [address] [place] [address] 12/17/2023 Boni Romero [address] [place] [address] 01/10/2024 Boni Romero [facility] [address] [place] [address] 01/15/2024 Boni Romero [address] [place] [address] 02/19/2024 Boni Romero ADHD (attention deficit hyperactivity disorder), inattentive type F90.0 [facility] [address] [place] [address] 03/18/2024 Boni Romero [address] [place] [address] 03/28/2024 Boni Romero [address] [place] [address] 04/25/2024 Boni Romero Bipolar 1 disorder F31.[address] [place] [address] 06/24/2024 Boni Romero ROSY (generalized anxiety disorder) F41.[address] [place] [address] 05/27/2024 Boni Romero [address] [place] [address] 06/11/[address] [place] [address] 10/18/2023 Boni Romero Nutritional counseling Z71.3 ; Bipolar 1 disorder F31.9 ; ADHD (attention deficit hyperactivity disorder), inattentive type F90.0 ; ROSY (generalized anxiety disorder) F41.1 and Insomnia G47.[address] [place] [address] 09/27/2023 Boni Romero Bipolar 1 disorder F31.9 ; ADHD (attention deficit hyperactivity disorder), inattentive type F90.0 ; ROSY (generalized anxiety disorder) F41.1 ; Post-traumatic stress disorder, unspecified F43.10 ; Medication monitoring encounter Z51.81 and Blood pressure elevated without history of HTN R03.[address] [place] [address] 10/04/2023 Boni Romero Nutritional counseling Z71.3 ; Bipolar 1 disorder F31.9 ; Post-traumatic stress disorder, unspecified F43.10 ; ROSY (generalized anxiety disorder) F41.1 ; ADHD (attention deficit hyperactivity disorder), inattentive type F90.0 and Medication monitoring encounter Z51.[address] [place] [address] 10/10/2023 Boni Romero Bipolar 1 disorder F31.9 and Medication monitoring encounter Z51.[address] [place] [address] 04/02/2024 Boni Romero Medication monitorin g encounter Z51.[address] [address] 07/17/2023 Boni Romero Bipolar 1 disorder F31.9 ; ADHD (attention deficit hyperactivity disorder), inattentive type F90.0 ; ROSY (generalized anxiety disorder) F41.1 ; Post-traumatic stress disorder, unspecified F43.10 and Insomnia G47.[address] [place] [address] 09/11/2023 Boni Romero Bipolar 1 disorder F31.9 ; ADHD (attention deficit hyperactivity disorder), inattentive type F90.0 ; ROSY (generalized anxiety disorder) F41.1 and Insomnia G47.[address] [address] 10/30/2023 Boni Romero Bipolar 1 disorder F31.9 ; ROSY (generalized anxiety disorder) F41.1 ; Post-traumatic stress disorder, unspecified F43.10 ; ADHD (attention deficit hyperactivity disorder), inattentive type F90.0 and Insomnia G47.[address] [address] 11/12/2023 Boni Romero Bipolar 1 disorder F31.9 ; ADHD (attention deficit hyperactivity disorder), inattentive type F90.0 ; ROSY (generalized anxiety disorder) F41.1 ; Post-traumatic stress disorder, unspecified F43.10 and Insomnia G47.[address] [address] 12/03/2023 Boni Romero Bipolar 1 disorder F31.9 ; Insomnia G47.00 ; Post-traumatic stress disorder, unspecified F43.10 ; ROSY (generalized anxiety disorder) F41.1 and ADHD (attention deficit hyperactivity disorder), inattentive type F90.[address] [address] 12/31/2023 Boni Romero Bipolar 1 disorder F31.9 ; ADHD (attention deficit hyperactivity disorder), inattentive type F90.0 ; ROSY (generalized anxiety disorder) F41.1 and Insomnia G47.[address] [address] 01/28/2024 Boni Romero Bipolar 1 disorder F31.9 ; Post-traumatic stress disorder, unspecified F43.10 ; ROSY (generalized anxiety disorder) F41.1 ; ADHD (attention deficit hyperactivity disorder), inattentive type F90.0 and Insomnia G47.[address] [address] 03/27/2024 Boni Romero Bipolar 1 disorder F31.9 ; ADHD (attention deficit hyperactivity disorder), inattentive type F90.0 ; ROYS (generalized anxiety disorder) F41.1 ; Insomnia G47.00 ; Medication monitoring encounter Z51.81 and Medication side effect [id number] [address] [address] 04/22/2024 Boni Romero Bipolar 1 disorder F31.9 ; ADHD (attention deficit hyperactivity disorder), inattentive type F90.0 ; ROSY (generalized anxiety disorder) F41.1 ; Post-traumatic stress disorder, unspecified F43.10 and Insomnia G47.[address] [address] 05/12/2024 Boni Romero Bipolar 1 disorder F31.9 ; ADHD (attention deficit hyperactivity disorder), inattentive type F90.0 ; ROSY (generalized anxiety disorder) F41.1 ; Post-traumatic stress disorder, unspecified F43.10 and Insomnia G47.[address] [address] 06/10/2024 Boni Romero Bipolar 1 disorder F31.9 ; ADHD (attention deficit hyperactivity disorder), inattentive type F90.0 ; ROSY (generalized anxiety disorder) F41.1 ; Post-traumatic stress disorder, unspecified F43.10 and Insomnia G47.[address] [address] 06/23/2024 Boni Romero Bipolar 1 disorder F31.9 ; ADHD (attention deficit hyperactivity disorder), inattentive type F90.0 ; ROSY (generalized anxiety disorder) F41.1 ; Post-traumatic stress disorder, unspecified F43.10 and Insomnia G47.00 Assessments Encounter Date Diagnosis (ICD Code) Assessment Notes Treatment Notes Treatment Clinical Notes Section Notes 07/17/2023 Bipolar 1 disorder (ICD-10 - F31.9) Venlafaxine decreased to 75 mg this month to see if helpful for client's c/o sweating. Client to call office if anxiety becomes an issue with the decrease. 07/17/2023 ADHD (attention deficit hyperactivity disorder), inattentive type (ICD-10 - F90.0) Venlafaxine decreased to 75 mg this month to see if helpful for client's c/o sweating. Client to call office if anxiety becomes an issue with the decrease. 09/11/2023 Bipolar 1 disorder (ICD-10 - F31.9) Client had hypomanic episode (since resolved) when lowered lithium and took self off Vraylar (AMA and of his own accord) when he was trying to figure out what is causing his issues with sweating. Client is agreeable to discontinuing bupropion 150 mg to see if helpful with sweating as most likely this or SNRI is cause. No other changes to treatment plan at this time. Client does not wish to restart Vraylar as feels stable on lithium without it when he restarted lithium. Client to come into office for next visit for full lab work and vital signs. 09/11/2023 ADHD (attention deficit hyperactivity disorder), inattentive type (ICD-10 - F90.0) Client had hypomanic episode (since resolved) when lowered lithium and took self off Vraylar (AMA and of his own accord) when he was trying to figure out what is causing his issues with sweating. Client is agreeable to discontinuing bupropion 150 mg to see if helpful with sweating as most likely this or SNRI is cause. No other changes to treatment plan at this time. Client does not wish to restart Vraylar as feels stable on lithium without it when he restarted lithium. Client to come into office for next visit for full lab work and vital signs. 09/17/2023 Bipolar 1 disorder (ICD-10 - F31.9) 09/27/2023 Bipolar 1 disorder (ICD-10 - F31.9) Client clearly in manic phase of illness, though rational and thinking clearly at present. Has not been sleeping and short term course of low dose quetiapine written for to aide with sleep while coming out of rachel. Client to have lab work drawn today to r/o low lithium levels, any substance use, or underlying medical issues. Client's symptom complaint of breaking out into forehead sweating seems to be r/t underlying HTN. Will change client to ER propranolol and make scheduled, decrease bupropion to 150 mg from 300 mg and discuss changing stimulant to different agent at next appointment. Client given clonidine by nursing staff at appointment to lower BP and advised to set up PCP as soon as possible. Advised to go to ER/urgent care if symptoms of head ache occur of if facial flushing persists after initiating propranolol ER. 09/27/2023 ADHD (attention deficit hyperactivity disorder), inattentive type (ICD-10 - F90.0) Client clearly in manic phase of illness, though rational and thinking clearly at present. Has not been sleeping and short term course of low dose quetiapine written for to aide with sleep while coming out of rachel. Client to have lab work drawn today to r/o low lithium levels, any substance use, or underlying medical issues. Client's symptom complaint of breaking out into forehead sweating seems to be r/t underlying HTN. Will change client to ER propranolol and make scheduled, decrease bupropion to 150 mg from 300 mg and discuss changing stimulant to different agent at next appointment. Client given clonidine by nursing staff at appointment to lower BP and advised to set up PCP as soon as possible. Advised to go to ER/urgent care if symptoms of head ache occur of if facial flushing persists after initiating propranolol ER. 10/04/2023 Bipolar 1 disorder (ICD-10 - F31.9) Client doing much better, out of manic phase. Recheck of lithium level this week after adjusting dose up. Client now sleeping at night. Will RTC in 2 weeks to monitor. 10/04/2023 Nutritional counseling (ICD-10 - Z71.3) Client doing much better, out of manic phase. Recheck of lithium level this week after adjusting dose up. Client now sleeping at night. Will RTC in 2 weeks to monitor. 10/10/2023 Bipolar 1 disorder (ICD-10 - F31.9) 10/18/2023 Nutritional counseling (ICD-10 - Z71.3) 10/10/2023 ADHD (attention deficit hyperactivity disorder), inattentive type (ICD-10 - F90.0) 10/18/2023 Bipolar 1 disorder (ICD-10 - F31.9) 10/30/2023 Bipolar 1 disorder (ICD-10 - F31.9) 10/22/2023 ROSY (generalized anxiety disorder) (ICD-10 - F41.1) 10/25/2023 Bipolar 1 disorder (ICD-10 - F31.9) 11/12/2023 Bipolar 1 disorder (ICD-10 - F31.9) Client doing well, no treatment plan changes at present time. 11/08/2023 Bipolar 1 disorder (ICD-10 - F31.9) 12/03/2023 Bipolar 1 disorder (ICD-10 - F31.9) Client doing well, no treatment plan changes needed. 12/31/2023 Bipolar 1 disorder (ICD-10 - F31.9) Treatment 1. Bipolar 1 disorder Refill [place] Carbonate ER Tablet Extended Release, 450 MG, 4 tablets at bedtime, Orally, Once a day, 30 days, 120 Tablet, Refills 0 Refill Lurasidone HCl Tablet, 40 MG, 1 tablet in the evening with food, Orally, Once a day, 30 days, 30 Tablet, Refills 0 Refill QUEtiapine Fumarate Tablet, 50 MG, 0.5 - 1 tablet at bedtime, Orally, Once a day As needed for insomnia, 30 days, 30, Refills 0 Refill buPROPion HCl ER (XL) Tablet Extended Release 24 Hour, 300 MG, 1 tablet in the morning, Orally, Once a day, 30 days, 30 Tablet, Refills 0 2. Insomnia Refill Eszopiclone Tablet, 1 MG, 1 tablet immediately before bedtime, Orally, Once a day, 30 days, 30 Tablet, Refills 0 3. ROSY (generalized anxiety disorder) Refill Venlafaxine HCl ER Capsule Extended Release 24 Hour, 75 MG, 1 capsule with food, Orally, Once a day, 30 days, 30 Capsule, Refills 0 4. ADHD (attention deficit hyperactivity disorder), inattentive type Refill Adderall XR Capsule Extended Release 24 Hour, 30 MG, 1 capsule in the morning, Orally, Once a day., 30 days, 30, Refills 0 12/14/2023 ADHD (attention deficit hyperactivity disorder), inattentive type (ICD-10 - F90.0) 01/28/2024 Bipolar 1 disorder (ICD-10 - F31.9) 02/19/2024 ADHD (attention deficit hyperactivity disorder), inattentive type (ICD-10 - F90.0) 03/27/2024 Bipolar 1 disorder (ICD-10 - F31.9) Unclear cause of client's current nausea/vomiting . Discussed for client to decrease lithium to 3 tablets at night given last lithium level was 0.9 on 4 tablets at night to r/o this being cause and will obtain lithium level on 1350 mg dosage. Client to call and update office if this resolves issues and to get level early next week. Doubtful Latuda issue given has been on for over seven months with no problems. If lithium side effects (lithium toxicity issues r/o) discussed with client may be viral or GERD in nature and he should f/u with PCP if continues. Will need close monitoring for mood swings/rachel given medications are likely not absorbing correctly and this was also discussed. Also discussed to get lithium level only if keeping lithium down and throwing up. Zofran prescribed for client. Client verbalizes understanding and is agreeable with this plan. 03/27/2024 ADHD (attention deficit hyperactivity disorder), inattentive type (ICD-10 - F90.0) Unclear cause of client's current nausea/vomiting . Discussed for client to decrease lithium to 3 tablets at night given last lithium level was 0.9 on 4 tablets at night to r/o this being cause and will obtain lithium level on 1350 mg dosage. Client to call and update office if this resolves issues and to get level early next week. Doubtful Latuda issue given has been on for over seven months with no problems. If lithium side effects (lithium toxicity issues r/o) discussed with client may be viral or GERD in nature and he should f/u with PCP if continues. Will need close monitoring for mood swings/rachel given medications are likely not absorbing correctly and this was also discussed. Also discussed to get lithium level only if keeping lithium down and throwing up. Zofran prescribed for client. Client verbalizes understanding and is agreeable with this plan. 04/22/2024 Bipolar 1 disorder (ICD-10 - F31.9) Client requests to replace Latuda with Vraylar to aide with mild depression and secure stability. [place] continued at 3 tablets per night (1350 mg) due to lithium level results. No other treatment plan changes. 04/02/2024 Medication monitoring encounter (ICD-10 - Z51.81) 05/12/2024 Bipolar 1 disorder (ICD-10 - F31.9) Client doing well, no treatment plan changes needed. Client has done much better on Focalin ER than on Adderall. 06/23/2024 Bipolar 1 disorder (ICD-10 - F31.9) Vraylar increased to 3mg due to disrupted sleep and beginnings of manic behaviors (increased energy, pressured speech, insomnia, restlessness). Client has not been taking Lunesta, only 50 mg of Seroquel for sleep. Instructed to take 1 mg of Lunesta with Seroquel until increased dose of Vraylar has started to help symptoms (1 week). Then to try to stop and see how sleep goes. Has appt on 07-07 to reassess condition. 04/25/2024 Bipolar 1 disorder (ICD-10 - F31.9) 06/10/2024 Bipolar 1 disorder (ICD-10 - F31.9) 06/24/2024 ROSY (generalized anxiety disorder) (ICD-10 - F41.1) 06/27/2024 ROSY (generalized anxiety disorder) (ICD-10 - F41.1) 06/10/2024 ADHD (attention deficit hyperactivity disorder), inattentive type (ICD-10 - F90.0) 06/23/2024 ADHD (attention deficit hyperactivity disorder), inattentive type (ICD-10 - F90.0) Vraylar increased to 3mg due to disrupted sleep and beginnings of manic behaviors (increased energy, pressured speech, insomnia, restlessness). Client has not been taking Lunesta, only 50 mg of Seroquel for sleep. Instructed to take 1 mg of Lunesta with Seroquel until increased dose of Vraylar has started to help symptoms (1 week). Then to try to stop and see how sleep goes. Has appt on 07-07 to reassess condition. 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 Client has done much better on Focalin ER than on Adderall. 04/22/2024 ADHD (attention deficit hyperactivity disorder), inattentive type (ICD-10 - F90.0) Client requests to replace Latuda with Vraylar to aide with mild depression and secure stability. [place] continued at 3 tablets per night (1350 mg) due to lithium level results. No other treatment plan changes. 03/27/2024 ROSY (generalized anxiety disorder) (ICD-10 - F41.1) Unclear cause of client's current nausea/vomiting . Discussed for client to decrease lithium to 3 tablets at night given last lithium level was 0.9 on 4 tablets at night to r/o this being cause and will obtain lithium level on 1350 mg dosage. Client to call and update office if this resolves issues and to get level early next week. Doubtful Latuda issue given has been on for over seven months with no problems. If lithium side effects (lithium toxicity issues r/o) discussed with client may be viral or GERD in nature and he should f/u with PCP if continues. Will need close monitoring for mood swings/rachel given medications are likely not absorbing correctly and this was also discussed. Also discussed to get lithium level only if keeping lithium down and throwing up. Zofran prescribed for client. Client verbalizes understanding and is agreeable with this plan. 12/03/2023 Insomnia (ICD-10 - G47.00) Client doing well, no treatment plan changes needed. 01/28/2024 Post-traumatic stress disorder, unspecified (ICD-10 - F43.10) 12/31/2023 ADHD (attention deficit hyperactivity disorder), inattentive type (ICD-10 - F90.0) Treatment 1. Bipolar 1 disorder Refill [place] Carbonate ER Tablet Extended Release, 450 MG, 4 tablets at bedtime, Orally, Once a day, 30 days, 120 Tablet, Refills 0 Refill Lurasidone HCl Tablet, 40 MG, 1 tablet in the evening with food, Orally, Once a day, 30 days, 30 Tablet, Refills 0 Refill QUEtiapine Fumarate Tablet, 50 MG, 0.5 - 1 tablet at bedtime, Orally, Once a day As needed for insomnia, 30 days, 30, Refills 0 Refill buPROPion HCl ER (XL) Tablet Extended Release 24 Hour, 300 MG, 1 tablet in the morning, Orally, Once a day, 30 days, 30 Tablet, Refills 0 2. Insomnia Refill Eszopiclone Tablet, 1 MG, 1 tablet immediately before bedtime, Orally, Once a day, 30 days, 30 Tablet, Refills 0 3. ROSY (generalized anxiety disorder) Refill Venlafaxine HCl ER Capsule Extended Release 24 Hour, 75 MG, 1 capsule with food, Orally, Once a day, 30 days, 30 Capsule, Refills 0 4. ADHD (attention deficit hyperactivity disorder), inattentive type Refill Adderall XR Capsule Extended Release 24 Hour, 30 MG, 1 capsule in the morning, Orally, Once a day., 30 days, 30, Refills 0 11/12/2023 ADHD (attention deficit hyperactivity disorder), inattentive type (ICD-10 - F90.0) Client doing well, no treatment plan changes at present time. 10/04/2023 Post-traumatic stress disorder, unspecified (ICD-10 - F43.10) Client doing much better, out of manic phase. Recheck of lithium level this week after adjusting dose up. Client now sleeping at night. Will RTC in 2 weeks to monitor. 10/30/2023 ROSY (generalized anxiety disorder) (ICD-10 - F41.1) 10/18/2023 ADHD (attention deficit hyperactivity disorder), inattentive type (ICD-10 - F90.0) 10/10/2023 Medication monitoring encounter (ICD-10 - Z51.81) 09/27/2023 ROSY (generalized anxiety disorder) (ICD-10 - F41.1) Client clearly in manic phase of illness, though rational and thinking clearly at present. Has not been sleeping and short term course of low dose quetiapine written for to aide with sleep while coming out of rachel. Client to have lab work drawn today to r/o low lithium levels, any substance use, or underlying medical issues. Client's symptom complaint of breaking out into forehead sweating seems to be r/t underlying HTN. Will change client to ER propranolol and make scheduled, decrease bupropion to 150 mg from 300 mg and discuss changing stimulant to different agent at next appointment. Client given clonidine by nursing staff at appointment to lower BP and advised to set up PCP as soon as possible. Advised to go to ER/urgent care if symptoms of head ache occur of if facial flushing persists after initiating propranolol ER. 09/11/2023 ROSY (generalized anxiety disorder) (ICD-10 - F41.1) Client had hypomanic episode (since resolved) when lowered lithium and took self off Vraylar (AMA and of his own accord) when he was trying to figure out what is causing his issues with sweating. Client is agreeable to discontinuing bupropion 150 mg to see if helpful with sweating as most likely this or SNRI is cause. No other changes to treatment plan at this time. Client does not wish to restart Vraylar as feels stable on lithium without it when he restarted lithium. Client to come into office for next visit for full lab work and vital signs. 07/17/2023 ROSY (generalized anxiety disorder) (ICD-10 - F41.1) Venlafaxine decreased to 75 mg this month to see if helpful for client's c/o sweating. Client to call office if anxiety becomes an issue with the decrease. 09/11/2023 Insomnia (ICD-10 - G47.00) Client had hypomanic episode (since resolved) when lowered lithium and took self off Vraylar (AMA and of his own accord) when he was trying to figure out what is causing his issues with sweating. Client is agreeable to discontinuing bupropion 150 mg to see if helpful with sweating as most likely this or SNRI is cause. No other changes to treatment plan at this time. Client does not wish to restart Vraylar as feels stable on lithium without it when he restarted lithium. Client to come into office for next visit for full lab work and vital signs. 07/17/2023 Post-traumatic stress disorder, unspecified (ICD-10 - F43.10) Venlafaxine decreased to 75 mg this month to see if helpful for client's c/o sweating. Client to call office if anxiety becomes an issue with the decrease. 09/27/2023 Post-traumatic stress disorder, unspecified (ICD-10 - F43.10) Client clearly in manic phase of illness, though rational and thinking clearly at present. Has not been sleeping and short term course of low dose quetiapine written for to aide with sleep while coming out of rachel. Client to have lab work drawn today to r/o low lithium levels, any substance use, or underlying medical issues. Client's symptom complaint of breaking out into forehead sweating seems to be r/t underlying HTN. Will change client to ER propranolol and make scheduled, decrease bupropion to 150 mg from 300 mg and discuss changing stimulant to different agent at next appointment. Client given clonidine by nursing staff at appointment to lower BP and advised to set up PCP as soon as possible. Advised to go to ER/urgent care if symptoms of head ache occur of if facial flushing persists after initiating propranolol ER. 10/04/2023 ROSY (generalized anxiety disorder) (ICD-10 - F41.1) Client doing much better, out of manic phase. Recheck of lithium level this week after adjusting dose up. Client now sleeping at night. Will RTC in 2 weeks to monitor. 10/18/2023 ROSY (generalized anxiety disorder) (ICD-10 - F41.1) 10/30/2023 Post-traumatic stress disorder, unspecified (ICD-10 - F43.10) 11/12/2023 ROSY (generalized anxiety disorder) (ICD-10 - F41.1) Client doing well, no treatment plan changes at present time. 12/31/2023 ROSY (generalized anxiety disorder) (ICD-10 - F41.1) Treatment 1. Bipolar 1 disorder Refill [place] Carbonate ER Tablet Extended Release, 450 MG, 4 tablets at bedtime, Orally, Once a day, 30 days, 120 Tablet, Refills 0 Refill Lurasidone HCl Tablet, 40 MG, 1 tablet in the evening with food, Orally, Once a day, 30 days, 30 Tablet, Refills 0 Refill QUEtiapine Fumarate Tablet, 50 MG, 0.5 - 1 tablet at bedtime, Orally, Once a day As needed for insomnia, 30 days, 30, Refills 0 Refill buPROPion HCl ER (XL) Tablet Extended Release 24 Hour, 300 MG, 1 tablet in the morning, Orally, Once a day, 30 days, 30 Tablet, Refills 0 2. Insomnia Refill Eszopiclone Tablet, 1 MG, 1 tablet immediately before bedtime, Orally, Once a day, 30 days, 30 Tablet, Refills 0 3. ROSY (generalized anxiety disorder) Refill Venlafaxine HCl ER Capsule Extended Release 24 Hour, 75 MG, 1 capsule with food, Orally, Once a day, 30 days, 30 Capsule, Refills 0 4. ADHD (attention deficit hyperactivity disorder), inattentive type Refill Adderall XR Capsule Extended Release 24 Hour, 30 MG, 1 capsule in the morning, Orally, Once a day., 30 days, 30, Refills 0 12/03/2023 Post-traumatic stress disorder, unspecified (ICD-10 - F43.10) Client doing well, no treatment plan changes needed. 01/28/2024 ROSY (generalized anxiety disorder) (ICD-10 - F41.1) 03/27/2024 Insomnia (ICD-10 - G47.00) Unclear cause of client's current nausea/vomiting . Discussed for client to decrease lithium to 3 tablets at night given last lithium level was 0.9 on 4 tablets at night to r/o this being cause and will obtain lithium level on 1350 mg dosage. Client to call and update office if this resolves issues and to get level early next week. Doubtful Latuda issue given has been on for over seven months with no problems. If lithium side effects (lithium toxicity issues r/o) discussed with client may be viral or GERD in nature and he should f/u with PCP if continues. Will need close monitoring for mood swings/rachel given medications are likely not absorbing correctly and this was also discussed. Also discussed to get lithium level only if keeping lithium down and throwing up. Zofran prescribed for client. Client verbalizes understanding and is agreeable with this plan. 04/22/2024 ROSY (generalized anxiety disorder) (ICD-10 - F41.1) Client requests to replace Latuda with Vraylar to aide with mild depression and secure stability. [place] continued at 3 tablets per night (1350 mg) due to lithium level results. No other treatment plan changes. 05/12/2024 ROSY (generalized anxiety disorder) (ICD-10 - F41.1) Client doing well, no treatment plan changes needed. Client has done much better on Focalin ER than on Adderall. 06/23/2024 ROSY (generalized anxiety disorder) (ICD-10 - F41.1) Vraylar increased to 3mg due to disrupted sleep and beginnings of manic behaviors (increased energy, pressured speech, insomnia, restlessness). Client has not been taking Lunesta, only 50 mg of Seroquel for sleep. Instructed to take 1 mg of Lunesta with Seroquel until increased dose of Vraylar has started to help symptoms (1 week). Then to try to stop and see how sleep goes. Has appt on 07-07 to reassess condition. 06/10/2024 ROSY (generalized anxiety disorder) (ICD-10 - F41.1) 06/23/2024 Post-traumatic stress disorder, unspecified (ICD-10 - F43.10) Vraylar increased to 3mg due to disrupted sleep and beginnings of manic behaviors (increased energy, pressured speech, insomnia, restlessness). Client has not been taking Lunesta, only 50 mg of Seroquel for sleep. Instructed to take 1 mg of Lunesta with Seroquel until increased dose of Vraylar has started to help symptoms (1 week). Then to try to stop and see how sleep goes. Has appt on 07-07 to reassess condition. 06/10/2024 Post-traumatic stress disorder, unspecified (ICD-10 - F43.10) 04/22/2024 Post-traumatic stress disorder, unspecified (ICD-10 - F43.10) Client requests to replace Latuda with Vraylar to aide with mild depression and secure stability. [place] continued at 3 tablets per night (1350 mg) due to lithium level results. No other treatment plan changes. 05/12/2024 Post-traumatic stress disorder, unspecified (ICD-10 - F43.10) Client doing well, no treatment plan changes needed. Client has done much better on Focalin ER than on Adderall. 03/27/2024 Medication monitoring encounter (ICD-10 - Z51.81) Unclear cause of client's current nausea/vomiting . Discussed for client to decrease lithium to 3 tablets at night given last lithium level was 0.9 on 4 tablets at night to r/o this being cause and will obtain lithium level on 1350 mg dosage. Client to call and update office if this resolves issues and to get level early next week. Doubtful Latuda issue given has been on for over seven months with no problems. If lithium side effects (lithium toxicity issues r/o) discussed with client may be viral or GERD in nature and he should f/u with PCP if continues. Will need close monitoring for mood swings/rachel given medications are likely not absorbing correctly and this was also discussed. Also discussed to get lithium level only if keeping lithium down and throwing up. Zofran prescribed for client. Client verbalizes understanding and is agreeable with this plan. 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 12/31/2023 Insomnia (ICD-10 - G47.00) Treatment 1. Bipolar 1 disorder Refill [place] Carbonate ER Tablet Extended Release, 450 MG, 4 tablets at bedtime, Orally, Once a day, 30 days, 120 Tablet, Refills 0 Refill Lurasidone HCl Tablet, 40 MG, 1 tablet in the evening with food, Orally, Once a day, 30 days, 30 Tablet, Refills 0 Refill QUEtiapine Fumarate Tablet, 50 MG, 0.5 - 1 tablet at bedtime, Orally, Once a day As needed for insomnia, 30 days, 30, Refills 0 Refill buPROPion HCl ER (XL) Tablet Extended Release 24 Hour, 300 MG, 1 tablet in the morning, Orally, Once a day, 30 days, 30 Tablet, Refills 0 2. Insomnia Refill Eszopiclone Tablet, 1 MG, 1 tablet immediately before bedtime, Orally, Once a day, 30 days, 30 Tablet, Refills 0 3. ROSY (generalized anxiety disorder) Refill Venlafaxine HCl ER Capsule Extended Release 24 Hour, 75 MG, 1 capsule with food, Orally, Once a day, 30 days, 30 Capsule, Refills 0 4. ADHD (attention deficit hyperactivity disorder), inattentive type Refill Adderall XR Capsule Extended Release 24 Hour, 30 MG, 1 capsule in the morning, Orally, Once a day., 30 days, 30, Refills 0 11/12/2023 Post-traumatic stress disorder, unspecified (ICD-10 - F43.10) Client doing well, no treatment plan changes at present time. 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 Recheck of lithium level this week after adjusting dose up. Client now sleeping at night. Will RTC in 2 weeks to monitor. 10/18/2023 Insomnia (ICD-10 - G47.00) 09/27/2023 Medication monitoring encounter (ICD-10 - Z51.81) Client clearly in manic phase of illness, though rational and thinking clearly at present. Has not been sleeping and short term course of low dose quetiapine written for to aide with sleep while coming out of rachel. Client to have lab work drawn today to r/o low lithium levels, any substance use, or underlying medical issues. Client's symptom complaint of breaking out into forehead sweating seems to be r/t underlying HTN. Will change client to ER propranolol and make scheduled, decrease bupropion to 150 mg from 300 mg and discuss changing stimulant to different agent at next appointment. Client given clonidine by nursing staff at appointment to lower BP and advised to set up PCP as soon as possible. Advised to go to ER/urgent care if symptoms of head ache occur of if facial flushing persists after initiating propranolol ER. 07/17/2023 Insomnia (ICD-10 - G47.00) Venlafaxine decreased to 75 mg this month to see if helpful for client's c/o sweating. Client to call office if anxiety becomes an issue with the decrease. 09/27/2023 Blood pressure elevated without history of HTN (ICD-10 - R03.0) Client clearly in manic phase of illness, though rational and thinking clearly at present. Has not been sleeping and short term course of low dose quetiapine written for to aide with sleep while coming out of rachel. Client to have lab work drawn today to r/o low lithium levels, any substance use, or underlying medical issues. Client's symptom complaint of breaking out into forehead sweating seems to be r/t underlying HTN. Will change client to ER propranolol and make scheduled, decrease bupropion to 150 mg from 300 mg and discuss changing stimulant to different agent at next appointment. Client given clonidine by nursing staff at appointment to lower BP and advised to set up PCP as soon as possible. Advised to go to ER/urgent care if symptoms of head ache occur of if facial flushing persists after initiating propranolol ER. 10/04/2023 Medication monitoring encounter (ICD-10 - Z51.81) Client doing much better, out of manic phase. Recheck of lithium level this week after adjusting dose up. Client now sleeping at night. Will RTC in 2 weeks to monitor. 10/30/2023 Insomnia (ICD-10 - G47.00) 11/12/2023 Insomnia (ICD-10 - G47.00) Client doing well, no treatment plan changes at present time. 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 01/28/2024 Insomnia (ICD-10 - G47.00) 03/27/2024 Medication side effect (ICD-10 - T88.7XXA) Unclear cause of client's current nausea/vomiting . Discussed for client to decrease lithium to 3 tablets at night given last lithium level was 0.9 on 4 tablets at night to r/o this being cause and will obtain lithium level on 1350 mg dosage. Client to call and update office if this resolves issues and to get level early next week. Doubtful Latuda issue given has been on for over seven months with no problems. If lithium side effects (lithium toxicity issues r/o) discussed with client may be viral or GERD in nature and he should f/u with PCP if continues. Will need close monitoring for mood swings/rachel given medications are likely not absorbing correctly and this was also discussed. Also discussed to get lithium level only if keeping lithium down and throwing up. Zofran prescribed for client. Client verbalizes understanding and is agreeable with this plan. 05/12/2024 Insomnia (ICD-10 - G47.00) Client doing well, no treatment plan changes needed. Client has done much better on Focalin ER than on Adderall. 04/22/2024 Insomnia (ICD-10 - G47.00) [place]. Discussed [...] number to the 24-hour crisis line at [facility]. Questions addressed. Client verbalized understanding of all information and is agreeable to treatment plan. Client requests to replace Latuda with Vraylar to aide with mild depression and secure stability. [place] continued at 3 tablets per night (1350 mg) due to lithium level results. No other treatment plan changes. 06/10/2024 Insomnia (ICD-10 - G47.00) 06/23/2024 Insomnia (ICD-10 - G47.00) Vraylar increased to 3mg due to disrupted sleep and beginnings of manic behaviors (increased energy, pressured speech, insomnia, restlessness). Client has not been taking Lunesta, only 50 mg of Seroquel for sleep. Instructed to take 1 mg of Lunesta with Seroquel until increased dose of Vraylar has started to help symptoms (1 week). Then to try to stop and see how sleep goes. Has appt on 07-07 to reassess condition. 12/31/2023 [place] issues [...] number to the 24-hour crisis line at [facility]. Questions addressed. Client verbalized understanding of all information and is agreeable to treatment plan. Treatment 1. Bipolar 1 disorder Refill [place] Carbonate ER Tablet Extended Release, 450 MG, 4 tablets at bedtime, Orally, Once a day, 30 days, 120 Tablet, Refills 0 Refill Lurasidone HCl Tablet, 40 MG, 1 tablet in the evening with food, Orally, Once a day, 30 days, 30 Tablet, Refills 0 Refill QUEtiapine Fumarate Tablet, 50 MG, 0.5 - 1 tablet at bedtime, Orally, Once a day As needed for insomnia, 30 days, 30, Refills 0 Refill buPROPion HCl ER (XL) Tablet Extended Release 24 Hour, 300 MG, 1 tablet in the morning, Orally, Once a day, 30 days, 30 Tablet, Refills 0 2. Insomnia Refill Eszopiclone Tablet, 1 MG, 1 tablet immediately before bedtime, Orally, Once a day, 30 days, 30 Tablet, Refills 0 3. ROSY (generalized anxiety disorder) Refill Venlafaxine HCl ER Capsule Extended Release 24 Hour, 75 MG, 1 capsule with food, Orally, Once a day, 30 days, 30 Capsule, Refills 0 4. ADHD (attention deficit hyperactivity disorder), inattentive type Refill Adderall XR Capsule Extended Release 24 Hour, 30 MG, 1 capsule in the morning, Orally, Once a day., 30 days, 30, Refills 0 06/23/2024 [place] [...] number to the 24-hour crisis line at [facility]. Questions addressed. Client verbalized understanding of all information and is agreeable to treatment plan. Vraylar increased to 3mg due to disrupted sleep and beginnings of manic behaviors (increased energy, pressured speech, insomnia, restlessness). Client has not been taking Lunesta, only 50 mg of Seroquel for sleep. Instructed to take 1 mg of Lunesta with Seroquel until increased dose of Vraylar has started to help symptoms (1 week). Then to try to stop and see how sleep goes. Has appt on 07-07 to reassess condition. 07/17/2023 [place]. Discussed [...] number to the 24-hour crisis line at [facility]. Questions addressed. Client verbalized understanding of all information and is agreeable to treatment plan. Venlafaxine decreased to 75 mg this month to see if helpful for client's c/o sweating. Client to call office if anxiety becomes an issue with the decrease. 09/11/2023 [place]. Discussed [...] number to the 24-hour crisis line at [facility]. Questions addressed. Client verbalized understanding of all information and is agreeable to treatment plan. Client had hypomanic episode (since resolved) when lowered lithium and took self off Vraylar (AMA and of his own accord) when he was trying to figure out what is causing his issues with sweating. Client is agreeable to discontinuing bupropion 150 mg to see if helpful with sweating as most likely this or SNRI is cause. No other changes to treatment plan at this time. Client does not wish to restart Vraylar as feels stable on lithium without it when he restarted lithium. Client to come into office for next visit for full lab work and vital signs. 09/27/2023 [place]. Discussed [...] number to the 24-hour crisis line at [facility]. Questions addressed. Client verbalized understanding of all information and is agreeable to treatment plan. RADHA Byrd, Adrianne Ash 09/27/2023 02:58:27 PM CDT >Clonidine 0.1 mg p.o. given to pt at 1455 for elevated BP.160/100. Denies headaches, dizziness or chest pain or shortness of breath. Will recheck BP in aprox 30 min. RADHA Byrd, Adrianne Ash 09/27/2023 04:03:56 PM CDT >BP rechecked at 1530, BP 150/100 in left arm. BP 160/100 in right arm. Will report to provider. BP rechecked at 1550, BP 160/100. Denies chest pain, shortness of breath, headache or dizziness. Reported to provider. Order received to send pt home and instruct him to take new Rx Propranolol, f/u with his PCP and go to ER if he experiences chest pain, shortness of breath, headache or dizziness. He verbalized understanding. Client clearly in manic phase of illness, though rational and thinking clearly at present. Has not been sleeping and short term course of low dose quetiapine written for to aide with sleep while coming out of rachel. Client to have lab work drawn today to r/o low lithium levels, any substance use, or underlying medical issues. Client's symptom complaint of breaking out into forehead sweating seems to be r/t underlying HTN. Will change client to ER propranolol and make scheduled, decrease bupropion to 150 mg from 300 mg and discuss changing stimulant to different agent at next appointment. Client given clonidine by nursing staff at appointment to lower BP and advised to set up PCP as soon as possible. Advised to go to ER/urgent care if symptoms of head ache occur of if facial flushing persists after initiating propranolol ER. 03/27/2024 [place] issues [...] number to the 24-hour crisis line at [facility]. Questions addressed. Client verbalized understanding of all information and is agreeable to treatment plan. Unclear cause of client's current nausea/vomiting . Discussed for client to decrease lithium to 3 tablets at night given last lithium level was 0.9 on 4 tablets at night to r/o this being cause and will obtain lithium level on 1350 mg dosage. Client to call and update office if this resolves issues and to get level early next week. Doubtful Latuda issue given has been on for over seven months with no problems. If lithium side effects (lithium toxicity issues r/o) discussed with client may be viral or GERD in nature and he should f/u with PCP if continues. Will need close monitoring for mood swings/rachel given medications are likely not absorbing correctly and this was also discussed. Also discussed to get lithium level only if keeping lithium down and throwing up. Zofran prescribed for client. Client verbalizes understanding and is agreeable with this plan. 10/04/2023 [place]. Discussed [...] number to the 24-hour crisis line at [facility]. Questions addressed. Client verbalized understanding of all information and is agreeable to treatment plan. Client doing much better, out of manic phase. Recheck of lithium level this week after adjusting dose up. Client now sleeping at night. Will RTC in 2 weeks to monitor. 01/28/2024 [place] issues [...] number to the 24-hour crisis line at [facility]. Questions addressed. Client verbalized understanding of all information and is agreeable to treatment plan. 10/30/2023 [place]. Discussed [...] number to the 24-hour crisis line at [facility]. Questions addressed. Client verbalized understanding of all information and is agreeable to treatment plan. 11/12/2023 [place]. Discussed [...] number to the 24-hour crisis line at [facility]. Questions addressed. Client verbalized understanding of all information and is agreeable to treatment plan. Client doing well, no treatment plan changes at present time. 12/03/2023 [place] issues [...] number to the 24-hour crisis line at [facility]. Questions addressed. Client verbalized understanding of all information and is agreeable to treatment plan. Client doing well, no treatment plan changes needed. 06/10/2024 [place] issues [...] number to the 24-hour crisis line at [facility]. Questions addressed. Client verbalized understanding of all information and is agreeable to treatment plan. 05/12/2024 [place] issues [...] number to the 24-hour crisis line at [facility]. Questions addressed. Client verbalized understanding of all information and is agreeable to treatment plan. Client doing well, no treatment plan changes needed. Client has done much better on Focalin ER than on Adderall. Plan Of Treatment Next Appt Details Provider Name:Boni palmer, 07/07/2024 03:40:00 PM, [address], [place], [address], Insurance Providers Payer Name Payer Address Payer Phone Subscriber Number Group Number Insured Name Patient Relationship to Insured Coverage Start Date Coverage End Date [facility] [address] [place] [address] [id number] David Rider Self - patient is the insured 2 Medical (General) History Medical History History ICD Code Bipolar 1 disorder with moderate rachel ( resolved 07/07/2022) Surgical History Surgery Date(Month/Year) Spinal fusion 2011 Hospitalization History Reason Date(Month/Year) [facility] 2020
--- OUTSIDE RECORDS SUMMARY | 2024-07-02 10:26 | XMS_ITS | Encounter Summary ---
Author Organization [facility] Address [address] [place] [address]. [place] [address] Care Team Providers Care Offset Pressman Name Role Phone Haris Hoffman DO Primary Care Provider + Reason for Referral * Consultation (Routine) - Authorized Specialty Diagnoses / Procedures Referred By Contac t Referred To Contact HEMATOLOGY/ONCOLOGY Diagnoses Elevated WBC count Procedures OFFICE/OUTPATIENT NEW LOW MDM 30-44 MINUTES OFFICE/OUTPT VISIT,NEW,LEVL IV OFFICE/OUTPT VISIT,NEW,LEVL V OFFICE/OUTPT VISIT,EST,LEVL III OFFICE/OUTPT VISIT,EST,LEVL IV OFFICE/OUTPT VISIT,EST,LEVL V Haris Hoffman DO [address] [place] [address] Phone: tel: fax: Benson Kaiser MD [address] [place] [phone] Phone: tel: fax: Referral ID Status Reason Start Date Expiration Date Visits Requested Visits Authorized [id number] Authorized Specialty Services 01/02/2024 01/31/2025 99 99 Reason for Visit * Reason Onset Date Comments Results 12/26/2023 Encounter Details Date Type Department Care Team (Late st Contact Info) Description 12/26/[address] [facility] Family & Internal [address] [phone] Haris Hoffman DO [address] [place] [address] Results Social History Tobacco Use Types Packs/Day [...] st Contact Info) Description 07/30/2024 8:40 AM FUNERAL PLANNER Office Visit [facility] Family & Internal Medicine - [place] [address] [place] [phone] Haris Hoffman DO [facility] [place] [address] Scheduled Referrals Name Type Priority Associated Diagnoses Orde r Schedule Ambulatory referral to Hematology Referral Routine Elevated WBC count Ordered: 01/02/2024 documented as of this encounter Visit Diagnoses Diagnosis Elevated WBC count- Primary Leukocytosis, unspecified WBC decreased Leukocytopenia, unspecified documented in this encounter Care Teams Offset Pressman Relationship Specialty Start Date End Date Haris Hoffman DO [address] [place] [id number] PCP - General FAMILY PRACTICE 05/09/19 documented as of this encounter
--- OUTSIDE RECORDS SUMMARY | 2024-07-02 10:26 | XMS_ITS | Encounter Summary ---
Author Organization [facility] Address [address] [place] [address]. [place] [address] Care Team Providers Care Soil Tester Name Role Phone Haris Hoffman DO Primary Care Provider + Reason for Visit * Reason Onset Date Comments Appointment Request 11/22/2023 Encounter Details Date Type Department Care Team (Late st Contact Info) Description 11/22/2023 Telephone [facility] Family & Internal Medicine [place] [id number] [place] [address] Haris Hoffman DO [address] [place] [address] Appointment Request Social History Tobacco [...] st Contact Info) Description 07/30/2024 8:40 AM INFORMATION MANAGEMENT MANAGER Office Visit [facility] Family & Internal Medicine - [address] [phone] Haris Hoffman DO [address] [place] [address] documented as of this encounter Visit Diagnoses Not on filedocumented in this encounter Care Teams Soil Tester Relationship Specialty Start Date End Date Haris Hoffman DO [address] [place] [id number] PCP - General FAMILY PRACTICE 05/09/19 documented as of this encounter
--- OUTSIDE RECORDS SUMMARY | 2024-07-02 10:26 | XMS_ITS | Encounter Summary ---
Author Organization [facility] Address [address] [place] [address]. [place] [address] Care Team Providers Care Metallurgical Specialist Name Role Phone Haris Hoffman DO Primary Care Provider + Reason for Visit * Reason Onset Date Comments Record Request 01/09/2024 Encounter Details Date Type Department Care Team (Late st Contact Info) Description 01/09/2024 Telephone [facility] Family & Internal Medicine [place] [place] [phone] Haris Hoffman DO [address] [place] [address] Record Request Social History Tobacco [...] 11:32 AM CDT Incoming sinus [facility] from [facility] and sent to PCP documented in this encounter Plan of Treatment Upcoming Encounters Date Type Department Care Team (Late st Contact Info) Description 07/30/2024 8:40 AM ART GILDER Office Visit [facility] Family & Internal Medicine - [place] [address] [place] [address] Haris Hoffman DO [facility] [place] [address] documented as of this encounter Visit Diagnoses Not on filedocumented in this encounter Care Teams Metallurgical Specialist Relationship Specialty Start Date End Date Haris Hoffman DO [address] [place] [address] PCP - General FAMILY PRACTICE 05/09/19 documented as of this encounter
--- OUTSIDE RECORDS SUMMARY | 2024-07-02 10:27 | XMS_ITS | Encounter Summary ---
Author Organization [facility] Address [address] [place] [address]. [place], [place] [address] [place] [address] Care Team Providers Care Touch Up Worker Name Role Phone Haris Hoffman DO Primary Care Provider + Encounter Details Date Type Department Care Team (Latest Contact Info) Description 11/21/2021 - 11/21/2021 11:59 PM CDT Hospital Encounter [facility] [address] [place] [address] Haris Hoffman DO [address] [place] [address] Discharge Disposition: Home or Self [...] st Contact Info) Description 07/30/2024 8:40 AM DELIVERY TABLE OPERATOR Office Visit [facility] Family & Internal Medicine [address] [phone] Haris Hoffman, [address] [place] [address] documented as of this encounter Visit Diagnoses Not on filedocumented in this encounter Care Teams Touch Up Worker Relationship Specialty Start Date End Date Haris Hoffman DO [address] [place] [id number] PCP - General FAMILY PRACTICE 05/09/19 documented as of this encounter
--- OUTSIDE RECORDS SUMMARY | 2024-07-02 10:27 | XMS_ITS | Encounter Summary ---
Author Organization [facility] Address [address] [place] [address]. [place] [id number] [place] [address] Care Team Providers Care Molder Closed Molds Name Role Phone Haris Hoffman DO Primary Care Provider + Reason for Referral * Imaging (Routine) - Authorized Specialty Diagnoses / Procedures Referred By Contac t Referred To Contact RADIOLOGY Diagnoses Elevated liver enzymes Procedures US ABD LIMITED Haris Hoffman DO [address] [place] [address] Phone: tel: fax: [facility] [address] [facility] [address] [place] [address] Phone: tel: fax: Referral ID Status Reason Start Date Expiration Date V isits Requested Visits Authorized [id number] Authorized 10/03/2023 10/02/2024 1 1 Reason for Visit * Reason Comments Lab Results The blood was ordere d by his psychiatrist at lab corrine. Patient has results on phone. Encounter Details Date Type Department Care Team (Late st Contact Info) Description 10/03/2023 9:00 AM CDT Office Visit [facility] Family & Internal Medicine - [place] [address] [place] [address] Haris Hoffman DO [address] [place] [address] Lab Results (The blood was ordered by [...] influenza vaccine? No 4. Do you have Guillain-Ortley Syndrome? No Flu vaccine administered in Right [...] Mild episode of recurrent major depressive disorder (CMS/[facility]) BMI 30.0-30.9,adult Gastroesophageal reflux disease with esophagitis [...] Months+ Quad (0.5 mL Prefilled Syringe) 10/03/2023 [facility] COVID-19 (ORIGINAL FORMULATION, PURPLE CAP) mRNA, LNP-S, [...] 32.0-32.9,adult Need for immunization against influenza - [90807] FLU VACC QUAD 6 MONTHS+ 0.5 ML [...] st Contact Info) Description 07/30/2024 8:40 AM LICSW Office Visit [facility] Family & Internal Medicine [address] [address] Haris Hoffman DO [address] [place] [address] Scheduled Orders Name Type Priority Associated Diagnoses Orde r Schedule US ABD LIMITED Ultrasound Routine Elevated liver enzymes Expected: 10/03/2023, Expires: 10/02/2024 documented as of this encounter Results * (ABNORMAL) CBC W/DIFF AUTOMATED (12/19/2023 2:24 PM CDT) WBC 15.55(H) 4.00 - 10.80 x10'3/uL 12/19/2023 8:00 PM CDT [facility] RBC 4.57 4.50 - 6.10 x10'6/uL 12/19/2023 8:00 PM CDT [facility] HGB 14.5 13.0 - 18.0 G/DL 12/19/2023 8:00 PM CDT [facility] HCT 42.4 37.0 - 52.0 % 12/19/2023 8:00 PM CDT [facility] MCV 92.8 78.0 - 100.0 FL 12/19/2023 8:00 PM CDT [facility] MCH 31.7(H) 27.0 - 31.0 PG 12/19/2023 8:00 PM CDT [facility] MCHC 34.2 33.0 - 36.0 G/DL 12/19/2023 8:00 PM CDT [facility] RDW 12.3 11.5 - 14.5 % 12/19/2023 8:00 PM CDT -[facility] PLT 387(H) 150 - 350 x10'3/uL 12/19/2023 8:00 PM CDT [facility] MPV 9.2 7.4 - 10.4 FL 12/19/2023 8:00 PM CDT [facility] DIFFERENTIAL TYPE AUTOMATED DIFFERENTIAL 12/19/2023 8:00 PM CDT [facility] NEUTROPHILS % 69.1 % 12/19/2023 8:00 PM CDT [facility] LYMPHOCYTES % 21.8 % 12/19/2023 8:00 PM CDT [facility] MONOCYTES % 6.0 % 12/19/2023 8:00 PM CDT [facility] EOSINOPHILS % 2.4 % 12/19/2023 8:00 PM CDT [facility] BASOPHILS % 0.2 % 12/19/2023 8:00 PM CDT [facility] IMMATURE GRANS % 0.5 % 12/19/2023 8:00 PM CDT [facility] ABS. NEUTROPHILS 10.74(H) 1.60 - 8.30 x10'3/uL 12/19/2023 8:00 PM CDT [facility] ABS. LYMPHOCYTES 3.39 0.80 - 4.70 x10'3/uL 12/19/2023 8:00 PM CDT [facility] ABS. MONOCYTES 0.93 0.00 - 1.50 x10'3/uL 12/19/2023 8:00 PM CDT [facility] ABS. EOSINOPHILS 0.38 0.00 - 0.40 x10'3/uL 12/19/2023 8:00 PM CDT [facility] ABS. BASOPHILS 0.03 0.00 - 0.20 x10'3/uL 12/19/2023 8:00 PM CDT [facility] ABS. IMMATURE GRANULOCYTES 0.08(H) 0.00 - 0.03 x10'3/uL 12/19/2023 8:00 PM CDT [facility] 12/19/2023 2:24 PM CDT us Haris Hoffman DO LABORATORY Final Re sult [facility] [address] [place] [address], * (ABNORMAL) HEPATIC FUNCTION PANEL (12/19/2023 2:24 PM CDT) BILIRUBIN TOTAL S/P/B 0.9 0.2 - 1.0 MG/DL 12/19/2023 8:23 PM CDT [facility] BILIRUBIN DIRECT S/P/B 0.2 0.0 - 0.2 MG/DL 12/19/2023 8:23 PM CDT [facility] ALKALINE PHOSPHATASE S/P/B 91 45 - 115 U/L 12/19/2023 8:23 PM CDT [facility] AST 25 15 - 37 U/L 12/19/2023 8:23 PM CDT [facility] ALT 80(H) 16 - 63 U/L 12/19/2023 8:23 PM CDT [facility] TOTAL PROTEIN S/P/B 7.5 6.4 - 8.2 G/DL 12/19/2023 8:23 PM CDT [facility] ALBUMIN S/P/B 4.1 3.4 - 5.0 G/DL 12/19/2023 8:23 PM CDT [facility] 12/19/2023 2:24 PM CDT Haris Hoffman DO LABORATORY Final Re sult [facility] [address] [facility] [place] [address], [place] [phone] * (ABNORMAL) LIPID PANEL (12/19/2023 2:24 PM CDT) Pathologist [facility] CHOLESTEROL 171 <200 MG/DL 12/19/2023 8:23 PM CDT [facility] TRIGLYCERIDES 185(H) <150 MG/DL 12/19/2023 8:23 PM CDT [facility] HDL 43 >40 MG/DL 12/19/2023 8:23 PM CDT [facility] LDL-C 91 <100 MG/DL 12/19/2023 8:23 PM CDT [facility] VLDL CALCULATION 37(H) 5 - 28 MG/DL 12/19/2023 8:23 PM CDT [facility] CHOL/HDL RATIO 4.0 0.0 - 4.0 12/19/2023 8:23 PM CDT [facility] LDL/HDL 2.1 0.41 - 2.13 12/19/2023 8:23 PM CDT [facility] NON HDL CHOLESTEROL 128 <140 MG/DL 12/19/2023 8:23 PM CDT [facility] 12/19/2023 2:24 PM CDT Haris Hoffman DO LABORATORY Final Re sult [facility] [address] [place] [address], [place] [phone] documented in this encounter Visit Diagnoses Diagnosis Elevated liver enzymes- Primary Nonspecific elevation of levels of transaminase or lactic acid dehydrogenase (LDH) Hyperlipidemia, unspecified hyperlipidemia type Leukocytosis, unspecified type BMI 32.0-32.9,adult Body Mass Index 32.0-32.9, adult Need for immunization against influenza Need for prophylactic vaccination and inoculation against influenza documented in this encounter Care Teams Molder Closed Molds Relationship Specialty Start Date End Date Haris Hoffman DO [address] [place], [place] [phone] PCP - General FAMILY PRACTICE 05/09/19 documented as of this encounter
--- OUTSIDE RECORDS SUMMARY | 2024-07-02 10:27 | XMS_ITS | Encounter Summary ---
Author Organization [facility] Address [address] [place] [address]. [address] [address] Care Team Providers Care Wind Operations Manager Name Role Phone Haris Hoffman DO Primary Care Provider + Reason for Visit * Reason Onset Date Comments Results 11/24/2021 Encounter Details Date Type Department Care Team (Late st Contact Info) Description 11/24/2021 Telephone [facility] Family & Internal Medicine [place] [address] [place] [address] Haris Hoffman DO [address] [place] [address] Results Social History Tobacco Use [...] 12:52 PM CDT A1c was WNL. * uSnni Magallon MA - 11/24/2021 2:51 PM CDT [...] phelan Contact Info) Description 07/30/2024 8:40 AM IMMIGRATION GUARD Office Visit [facility] Family & Internal Medicine - [place] [address] [place] [address] Haris Hoffman DO [address] [place] [address] documented as of this encounter Results * (ABNORMAL) HEMOGLOBIN, GLYCOSYLATED (11/24/2021 2:57 PM CDT) HGB A1C 5.4 3.80 - 5.60 % 11/24/2021 5:22 PM CDT [facility] [place] [place] ESTIMATED AVG GLUCOSE 108(H) 74 - 106 MG/DL 11/24/2021 5:22 PM CDT [facility] 11/24/2021 2:57 PM CDT Haris Hoffman DO LABORATORY Final Re sult [facility] [address] [place] [address], [place] [phone] documented in this encounter Visit Diagnoses Diagnosis Elevated glucose- Primary Other abnormal glucose Elevated liver enzymes Nonspecific elevation of levels of transaminase or lactic acid dehydrogenase (LDH) documented in this encounter Care Teams Wind Operations Manager Relationship Specialty Start Date End Date Haris Hoffman DO [facility] [address] [place] [address] PCP - General FAMILY PRACTICE 05/09/19 documented as of this encounter
--- OUTSIDE RECORDS SUMMARY | 2024-07-02 10:27 | XMS_ITS | Encounter Summary ---
Author Organization [facility] Address [address] [place] [address]. [address] [address] Care Team Providers Care Television Actor Name Role Phone Haris Hoffman DO Primary Care Provider + Encounter Details Date Type Department Care Team (Late st Contact Info) Description 11/21/2021 8:00 AM CDT Laboratory Only [facility] Medical Group Family & Internal Medicine [place] [address] [place] [address] Haris Hoffman DO [address] [place] [address] Social History Tobacco Use Types [...] st Contact Info) Description 07/30/2024 8:40 AM HIGH LEAD YARDER Office Visit [facility] Medical Group Family & Internal Medicine [facility] [address] [place] [address] Haris Hoffman, [address] [place] [address] documented as of this encounter Procedures Procedure [...] - 10.8 x10'3/uL 11/21/2021 2:57 PM CDT -[facility] RBC 5.29 4.50 - 6.10 x10'6/uL 11/21/2021 2:57 PM CDT [facility] HGB 16.9 13.0 - 18.0 G/DL 11/21/2021 2:57 PM CDT [facility] HCT 48.9 37.0 - 52.0 % 11/21/2021 2:57 PM CDT [facility] MCV 92.4 78.0 - 100.0 FL 11/21/2021 2:57 PM CDT [facility] MCH 31.9(H) 27.0 - 31.0 PG 11/21/2021 2:57 PM CDT [facility] MCHC 34.6 33.0 - 36.0 G/DL 11/21/2021 2:57 PM CDT [facility] RDW 11.8 11.5 - 14.5 % 11/21/2021 2:57 PM CDT [facility] PLT 324 150 - 350 x10'3/uL 11/21/2021 2:57 PM CDT [facility] MPV 9.2 7.4 - 10.4 FL 11/21/2021 2:57 PM CDT [facility] DIFFERENTIAL TYPE AUTOMATED DIFFERENTIAL 11/21/2021 2:57 PM CDT [facility] NEUTROPHILS % 61.9 % 11/21/2021 2:57 PM CDT [facility] LYMPHOCYTES % 29.3 % 11/21/2021 2:57 PM CDT [facility] MONOCYTES % 7.1 % 11/21/2021 2:57 PM CDT [facility] EOSINOPHILS % 1.1 % 11/21/2021 2:57 PM CDT [facility] BASOPHILS % 0.3 % 11/21/2021 2:57 PM CDT [facility] IMMATURE GRANS % 0.3 % 11/21/2021 2:57 PM CDT -[facility] ABS. NEUTROPHILS 4.60 1.60 - 8.30 x10'3/uL 11/21/2021 2:57 PM CDT -[facility] ABS. LYMPHOCYTES 2.18 0.80 - 4.70 x10'3/uL 11/21/2021 2:57 PM CDT -[facility] ABS. MONOCYTES 0.53 0.00 - 1.50 x10'3/uL 11/21/2021 2:57 PM CDT [facility] ABS. EOSINOPHILS 0.08 0.00 - 0.40 x10'3/uL 11/21/2021 2:57 PM CDT -[facility] ABS. BASOPHILS 0.02 0.00 - 0.20 x10'3/uL 11/21/2021 2:57 PM CDT [facility] ABS. IMMATURE GRANULOCYTES 0.02 0.00 - 0.03 x10'3/uL 11/21/2021 2:57 PM CDT -[facility] 11/21/2021 7:56 AM CDT us Haris Hoffman DO LABORATORY Final Re sult [facility] [address] [place] [address], * (ABNORMAL) COMPREHENSIVE METABOLIC PANEL (11/21/2021 7:56 AM CDT) Pathologist [facility] SODIUM S/P/B 142 136 - 145 MMOL/L 11/21/2021 6:16 PM CDT [facility] POTASSIUM S/P/B 4.2 3.5 - 5.1 MMOL/L 11/21/2021 6:16 PM CDT [facility] CHLORIDE S/P/B 104 98 - 107 MMOL/L 11/21/2021 6:16 PM CDT [facility] CO2 27.1 21 - 32 MMOL/L 11/21/2021 6:16 PM T [facility] GLUCOSE 110(H) 70 - 99 MG/DL 11/21/2021 6:16 PM T [facility] BUN 14 6 - 24 MG/DL 11/21/2021 6:16 PM T [facility] CREATININE S/P/B 0.96 0.70 - 1.30 MG/DL 11/21/2021 6:16 PM T [facility] CALCIUM S/P/B 8.8 8.4 - 10.5 MG/DL 11/21/2021 6:16 PM T [facility] BILIRUBIN TOTAL S/P/B 1.3(H) 0.2 - 1.0 MG/DL 11/21/2021 6:16 PM T [facility] ALKALINE PHOSPHATASE S/P/B 68 45 - 115 U/L 11/21/2021 6:16 PM T [facility] AST 41(H) 15 - 37 U/L 11/21/2021 6:16 PM CDT [facility] ALT 108(H) 16 - 63 U/L 11/21/2021 6:16 PM T [facility] TOTAL PROTEIN S/P/B 7.1 6.4 - 8.2 G/DL 11/21/2021 6:16 PM T [facility] ALBUMIN S/P/B 4.0 3.4 - 5.0 G/DL 11/21/2021 6:16 PM T [facility] ANION GAP 10.9 5 - 15 MMOL/L 11/21/2021 6:16 PM T [facility] Comment:REFERENCE RANGE NOT ESTABLISHED OSMOLALITY (CALC) 295 MOSM/KG 022 6:16 PM T [facility] Comment:REFERENCE RANGE NOT ESTABLISHED GFR ESTIMATE >90 >90 ML/MIN/1. 73 M2 11/21/2021 6:16 PM CDT [facility] GFR NOTES GFR REFERENCE S: 11/21/2021 6:16 PM CDT [facility] Comment: THE ESTIMATED GFR IS CALCULATED [...] Haris Hoffman DO LABORATORY Final Re sult [address] [address], * TSH W/REFLEX (11/21/2021 7:56 AM CDT) TSH 1.744 0.358 - 3.740 uIU/ML 11/21/2021 6:16 PM CDT [facility] 11/21/2021 7:56 AM CDT Haris Hoffman DO LABORATORY Final Re sult [address] [address], [place] [phone] * (ABNORMAL) LIPID PANEL (11/21/2021 7:56 AM CDT) CHOLESTEROL 194 <200 MG/DL 11/21/2021 6:16 PM CDT [facility] TRIGLYCERIDES 145 <150 MG/DL 11/21/2021 6:16 PM CDT [facility] HDL 47 >40 MG/DL 11/21/2021 6:16 PM CDT [facility] LDL-C 118(H) <100 MG/DL 11/21/2021 6:16 PM CDT [facility] VLDL CALCULATION 29(H) 5 - 28 MG/DL 11/21/2021 6:16 PM CDT [facility] CHOL/HDL RATIO 4.1(H) 0.0 - 4.0 11/21/2021 6:16 PM CDT [facility] LDL/HDL 2.5(H) 0.41 - 2.13 11/21/2021 6:16 PM CDT [facility] NON HDL CHOLESTEROL 147(H) <140 MG/DL 11/21/2021 6:16 PM CDT [facility] 11/21/2021 7:56 AM CDT Haris Hoffman DO LABORATORY Final Re sult Performing Organization Address City/[facility]/ZIP Co de Phone Number [facility] [address] [place] [address], [place] [phone] * VITAMIN B-12 (11/21/2021 7:56 AM CDT) VITAMIN B12 S/P/B 413 193 - 986 PG/ML 11/21/2021 6:16 PM CDT [facility] 11/21/2021 7:56 AM CDT Haris Hoffman DO LABORATORY Final Re sult [facility] [address] [place] [address], [place] [phone] * HEPATITIS C ANTIBODY (11/21/2021 7:56 AM CDT) HEPATITIS C AB NON-REACTI VE NON-REACT [place] 11/21/2021 6:32 PM CDT [facility] Comment: ANTIBODIES TO HCV NOT DETECTED. DOES NOT EXCLUDE THE POSSIBILITY OF EXPOSURE TO HCV. 11/21/2021 7:56 AM CDT Haris Hoffman DO LABORATORY Final Re sult [facility] [address] [place] [address], [place] [phone] documented in this encounter Visit Diagnoses Diagnosis Need for hepatitis C screening test Special screening examination for other specified viral diseases Screening for endocrine, metabolic and immunity disorder Annual physical exam Routine general medical examination at a health care facility Screening for lipid disorders documented in this encounter Care Teams Television Actor Relationship Specialty Start Date End Date Haris Hoffman DO [address] [place] [address] PCP - General FAMILY PRACTICE 05/09/19 documented as of this encounter
--- OUTSIDE RECORDS SUMMARY | 2024-07-02 10:27 | XMS_ITS | Encounter Summary ---
Author Organization [facility] Address [address] [place] [address]. [place] [id number] [place] [address] Care Team Providers Care Rotary Drier Feeder Name Role Phone Haris Hoffman DO Primary [...] st Contact Info) Description 07/30/2024 8:40 AM TV NEWS DIRECTOR Office Visit [facility] Medical Group Family & Internal Medicine - [address] [address] Haris Hoffman DO [address] [place] [phone] documented as of this encounter Procedures Procedure Name Priority Date/Time Associated Diagnosis Comments OUTSIDE LAB (SCAN ORDER) Routine 09/27/2023 documented in this encounter Results * OUTSIDE LAB (09/27/2023) HGB A1C 5.5 % [facility] 09/27/2023 us Doc [facility] Scanned SCANNING Final Resu lt [facility] documented in this encounter Visit Diagnoses Not on filedocumented in this encounter Care Teams Rotary Drier Feeder Relationship Specialty Start Date End Date Haris Hoffman DO [address] [place] [address] PCP - General FAMILY PRACTICE 05/09/19 documented as of this encounter
--- OUTSIDE RECORDS SUMMARY | 2024-07-02 10:27 | XMS_ITS | Encounter Summary ---
Author Organization [facility] Address [address] [place] [address]. [place], [place] [address] [place] [address] Care Team Providers Care Rack Puller Name Role Phone Haris Hoffman DO Primary Care Provider + Encounter Details Date Type Department Care Team (Late st Contact Info) Description 11/24/2021 Orders Only [facility] Medical Group Family & Internal Medicine [facility] [address] [place] [address] Haris Hoffman DO [address] [place] [address] Social History Tobacco Use Types [...] st Contact Info) Description 07/30/2024 8:40 AM FIRE MANAGEMENT SPECIALIST Office Visit [facility] Medical Group Family & Internal Medicine - [place] [address] [place] [address] Haris Hoffman DO [address] [place] [address] documented as of this encounter Procedures Procedure Name Priority Date/Time Associated Diagnosis Comments HEMOGLOBIN, GLYCOSYLATED Routine 11/24/2021 2:57 PM CDT Elevated glucose documented in this encounter Results * (ABNORMAL) HEMOGLOBIN, GLYCOSYLATED (11/24/2021 2:57 PM CDT) HGB A1C 5.4 3.80 - 5.60 % 11/24/2021 5:22 PM CDT [facility] ESTIMATED AVG GLUCOSE 108(H) 74 - 106 MG/DL 11/24/2021 5:22 PM CDT [facility] 11/24/2021 2:57 PM CDT Haris Hoffman DO LABORATORY Final Re sult [facility] [address] [place] [address], [place] [phone] documented in this encounter Visit Diagnoses Diagnosis Elevated glucose Other abnormal glucose documented in this encounter Care Teams Rack Puller Relationship Specialty Start Date End Date Haris Hoffman DO [address] [place] [address] PCP - General FAMILY PRACTICE 05/09/19 documented as of this encounter
--- OUTSIDE RECORDS SUMMARY | 2024-07-02 10:27 | XMS_ITS | Encounter Summary ---
Author Organization [facility] Address [address] [place] [address]. [place], [place] [address] [place] [address] Care Team Providers Care Slubber Operator Name Role Phone Haris Hoffman Primary [...] st Contact Info) Description 07/30/2024 8:40 AM COVER MAKING MACHINE OPERATOR Office Visit [facility] Medical Group Family & Internal Medicine [address] [address] Haris Hoffman DO [address] [place] [address] documented as of this encounter Visit Diagnoses Not on filedocumented in this encounter Care Teams Slubber Operator Relationship Specialty Start Date End Date Haris Hoffman DO [address] [place] [address] PCP - General FAMILY PRACTICE 05/09/19 documented as of this encounter
--- OUTSIDE RECORDS SUMMARY | 2024-07-02 10:27 | XMS_ITS | Encounter Summary ---
Author Organization [facility] Address [address] [place] [address]. [place] [address] Care Team Providers Care Jockey Agent Name Role Phone Haris Hoffman DO Primary Care Provider + Reason for Visit * Reason Onset Date Comments Problem 09/24/2023 Persistent cough /raw/bleeding throat Encounter Details Date Type Department Care Team (Late st Contact Info) Description 09/24/2023 Telephone [facility] Medical Group Family & Internal Medicine [address] [phone] Haris Hoffman DO [address] [place] [address] Problem (Persistent cough/raw/bleeding throat) Social History [...] bloody. Phlegm is clear. Appt scheduled sisi petyt documented in this encounter Plan of Treatment Upcoming Encounters Date Type Department Care Team (Late st Contact Info) Description 07/30/2024 8:40 AM RISK PROFESSIONAL Office Visit [facility] Medical Group Family & Internal Medicine [address] [address] Haris Hoffman DO [address] [place] [address] documented as of this encounter Visit Diagnoses Not on filedocumented in this encounter Care Teams Jockey Agent Relationship Specialty Start Date End Date Haris Hoffman DO [address] [place] [address] PCP - General FAMILY PRACTICE 05/09/19 documented as of this encounter
--- OUTSIDE RECORDS SUMMARY | 2024-07-02 10:28 | XMS_ITS | Encounter Summary ---
Author Organization [facility] Address [address] [place] [address]. [place], [place] [address] [place] [address] Care Team Providers Care Collector Of Port Name Role Phone Haris Hoffman Primary Care [...] st Contact Info) Description 07/30/2024 8:40 AM YARN MAN Office Visit [facility] Medical Group Family & Internal Medicine [address] [address] Haris Hoffman DO [address] [place] [address] documented as of this encounter Visit Diagnoses Not on filedocumented in this encounter Care Teams Collector Of Port Relationship Specialty Start Date End Date Haris Hoffman DO [address] [place] [address] PCP - General FAMILY PRACTICE 05/09/19 documented as of this encounter
--- OUTSIDE RECORDS SUMMARY | 2024-07-02 10:28 | XMS_ITS | Encounter Summary ---
Author Organization [facility] Address [address] [place] [address]. [place], [place] [phone] [place] [address] Care Team Providers Care Regulatory Manager Name Role Phone Haris Hoffman DO [...] st Contact Info) Description 07/30/2024 8:40 AM PLUMBER GASFITTER Office Visit [facility] Medical Group Family & Internal Medicine [address] [address] Haris Hoffman DO [address] [place] [address] documented as of this encounter Visit Diagnoses Not on filedocumented in this encounter Care Teams Regulatory Manager Relationship Specialty Start Date End Date Haris Hoffman DO [address] [place] [address] PCP - General FAMILY PRACTICE 05/09/19 documented as of this encounter
--- OUTSIDE RECORDS SUMMARY | 2024-07-02 10:28 | XMS_ITS | Encounter Summary ---
Author Organization [facility] Address [address] [place] [address]. [place], [place] [address] [place] [address] Care Team Providers Care Business Banking Relationship Manager Name Role Phone Haris Hoffman DO Primary Care Provider + Reason for Visit * Reason Comments Follow Up Depression Patient has recently had an increase of anxiety and fatigue. Patient notices that he has ups and downs with mood and wanted to talk further about this Encounter Details Date Type Department Care Team (Late st Contact Info) Description 05/23/2019 9:40 AM MILKING MACHINE TECHNICIAN Office Visit [facility] Family & Internal Medicine [address] [phone] Haris Hoffman DO [address] [place] [address] [phone] Follow Up; Depression (Patient has recently had [...] Comments Blood Pressure 132/70 05/23/2019 9:31 AM MILKING MACHINE TECHNICIAN Pulse 83 05/23/2019 9:31 AM MILKING MACHINE TECHNICIAN Temperature 36.4 ??C (97.5 ??F) 05/23/2019 9:31 AM CS T Respiratory Rate 14 05/23/2019 9:31 AM MILKING MACHINE TECHNICIAN Oxygen Saturation 99% 05/23/2019 9:31 AM MILKING MACHINE TECHNICIAN Inhaled Oxygen Concentration - - Weight 109.5 kg (241 lb 8 oz) 05/23/2019 9:31 AM MILKING MACHINE TECHNICIAN Height 188 cm (6' 2 ) 05/23/2019 9:31 AM MILKING MACHINE TECHNICIAN Body Mass Index 31.01 05/23/2019 9:31 AM MILKING MACHINE TECHNICIAN documented in this encounter Progress Notes * [...] file Gets together: Not on file Attends confucianism service: Not on file Active member of [...] and coordination of care. Haris Hoffman DO ING MACHINE TECHNICIAN documented in this encounter Plan of Treatment Upcoming Encounters Date Type Department Care Team (Late st Contact Info) Description 07/30/2024 8:40 AM MILKING MACHINE TECHNICIAN Office Visit [facility] Family & Internal Medicine [address] [phone] Haris Hoffman DO [address] [place] [address] documented as of this encounter Visit Diagnoses Diagnosis Mild episode of recurrent major depressive disorder (CMS/HCC)- Primary documented in this encounter Care Teams Business Banking Relationship Manager Relationship Specialty Start Date End Date Haris Hoffman DO [address] [place] [address] PCP - General FAMILY PRACTICE 05/09/19 documented as of this encounter
--- OUTSIDE RECORDS SUMMARY | 2024-07-02 10:28 | XMS_ITS | Encounter Summary ---
Author Organization [facility] Address [address] [place] [address]. [place] [address] Care Team Providers Care Cisco Consultant Name Role Phone Haris Hoffman DO Primary Care Provider + Reason for Visit * Reason Comments Weakness left arm , trouble g rippiing things Encounter Details Date Type Department Care Team (Late st Contact Info) Description 11/16/2021 2:20 PM CDT Office Visit [facility] Family & Internal Medicine [address] [phone] Haris Hoffman DO [address] [place] [address] Weakness (left arm , trouble grippiing [...] rash. Neurological: Comments: Negative Tinel's B/L. 5/5 kiln placer strength B/L Psychiatric: Comments: Stable today Assessment [...] st Contact Info) Description 07/30/2024 8:40 AM THERMOMETER TESTER Office Visit [facility] Family & Internal Medicine [address] [phone] Haris Hoffman DO [address] [place] [address] documented as of this encounter Results * HEPATITIS C ANTIBODY (11/21/2021 7:56 AM CDT) HEPATITIS C AB NON-REACTI VE NON-REACT [place] 11/21/2021 6:[address] [facility] Comment: ANTIBODIES TO HCV NOT DETECTED. DOES NOT EXCLUDE THE POSSIBILITY OF EXPOSURE TO HCV. 11/21/2021 7:56 AM CDT Haris Hoffman DO LABORATORY Final Re sult Performing Organization Address [facility]/ZIP Co de Phone Number [facility] [address] [place] [address], [phone] * VITAMIN B-12 (11/21/2021 7:56 AM CDT) VITAMIN B12 S/P/B 413 193 - 986 PG/ML 11/21/2021 6:16 PM CDT [facility] 11/21/2021 7:56 AM CDT Haris Hoffman DO LABORATORY Final Re sult GREG [facility], [place] [address] [place] [address], [place] [phone] * (ABNORMAL) LIPID PANEL (11/21/2021 7:56 AM CDT) CHOLESTEROL 194 <200 MG/DL 11/21/2021 6:16 PM CDT [facility] TRIGLYCERIDES 145 <150 MG/DL 11/21/2021 6:16 PM CDT [facility] HDL 47 >40 MG/DL 11/21/2021 6:16 PM CDT [facility] LDL-C 118(H) <100 MG/DL 11/21/2021 6:16 PM CDT [facility] VLDL CALCULATION 29(H) 5 - 28 MG/DL 11/21/2021 6:16 PM CDT [facility] CHOL/HDL RATIO 4.1(H) 0.0 - 4.0 11/21/2021 6:16 PM CDT [facility] LDL/HDL 2.5(H) 0.41 - 2.13 11/21/2021 6:16 PM CDT [facility] NON HDL CHOLESTEROL 147(H) <140 MG/DL 11/21/2021 6:16 PM CDT [facility] 11/21/2021 7:56 AM CDT Haris Hoffman DO LABORATORY Final Re sult AFSANEH [place] [address] [place] [address], [place] [phone] * TSH W/REFLEX (11/21/2021 7:56 AM CDT) TSH 1.744 0.358 - 3.740 uIU/ML 11/21/2021 6:16 PM CDT [facility] [place] 11/21/2021 7:56 AM CDT Haris Hoffman DO LABORATORY Final Re sult -AFSANEH HERNANDEZFIELD [address] [place] [address], * (ABNORMAL) COMPREHENSIVE METABOLIC PANEL (11/21/2021 7:56 AM CDT) Pathologist [facility] SODIUM S/P/B 142 136 - 145 MMOL/L 11/21/2021 6:16 PM CDT [facility] POTASSIUM S/P/B 4.2 3.5 - 5.1 MMOL/L 11/21/2021 6:16 PM CDT [facility] CHLORIDE S/P/B 104 98 - 107 MMOL/L 11/21/2021 6:16 PM CDT [facility] CO2 27.1 21 - 32 MMOL/L 11/21/2021 6:16 PM CDT [facility] GLUCOSE 110(H) 70 - 99 MG/DL 11/21/2021 6:16 PM CDT [facility] BUN 14 6 - 24 MG/DL 11/21/2021 6:16 PM CDT [facility] CREATININE S/P/B 0.96 0.70 - 1.30 MG/DL 11/21/2021 6:16 PM CDT [facility] CALCIUM S/P/B 8.8 8.4 - 10.5 MG/DL 11/21/2021 6:16 PM CDT [facility] BILIRUBIN TOTAL S/P/B 1.3(H) 0.2 - 1.0 MG/DL 11/21/2021 6:16 PM CDT [facility] ALKALINE PHOSPHATASE S/P/B 68 45 - 115 U/L 11/21/2021 6:16 PM CDT [facility] AST 41(H) 15 - 37 U/L 11/21/2021 6:16 PM CDT [facility] ALT 108(H) 16 - 63 U/L 11/21/2021 6:16 PM CDT [facility] TOTAL PROTEIN S/P/B 7.1 6.4 - 8.2 G/DL 11/21/2021 6:16 PM T [facility] ALBUMIN S/P/B 4.0 3.4 - 5.0 G/DL 11/21/2021 6:16 PM T [facility] ANION GAP 10.9 5 - 15 MMOL/L 11/21/2021 6:16 PM T [facility] Comment:REFERENCE RANGE NOT ESTABLISHED OSMOLALITY (CALC) 295 MOSM/KG 022 6:16 PM T [facility] Comment:REFERENCE RANGE NOT ESTABLISHED GFR ESTIMATE >90 >90 ML/MIN/1. 73 M2 11/21/2021 6:16 PM T [facility] GFR NOTES GFR REFERENCE S: 11/21/2021 6:16 PM [facility] Comment: THE ESTIMATED GFR IS CALCULATED [...] DO LABORATORY Final Re sult -LATA HENSON [place] [address] [place] [address], * (ABNORMAL) CBC W/DIFF AUTOMATED (11/21/2021 7:56 AM CDT) [facility] Signature WBC 7.4 4.0 - 10.8 x10'3/uL 11/21/2021 2:57 PM CDT [facility] RBC 5.29 4.50 - 6.10 x10'6/uL 11/21/2021 2:57 PM CDT [facility] HGB 16.9 13.0 - 18.0 G/DL 11/21/2021 2:57 PM CDT [facility] HCT 48.9 37.0 - 52.0 % 11/21/2021 2:57 PM CDT [facility] MCV 92.4 78.0 - 100.0 FL 11/21/2021 2:57 PM CDT [facility] MCH 31.9(H) 27.0 - 31.0 PG 11/21/2021 2:57 PM CDT [facility] MCHC 34.6 33.0 - 36.0 G/DL 11/21/2021 2:57 PM CDT [facility] RDW 11.8 11.5 - 14.5 % 11/21/2021 2:57 PM CDT [facility] PLT 324 150 - 350 x10'3/uL 11/21/2021 2:57 PM CDT [facility] MPV 9.2 7.4 - 10.4 FL 11/21/2021 2:57 PM CDT [facility] DIFFERENTIAL TYPE AUTOMATED DIFFERENTIAL 11/21/2021 2:57 PM CDT [facility] NEUTROPHILS % 61.9 % 11/21/2021 2:57 PM CDT [facility] LYMPHOCYTES % 29.3 % 11/21/2021 2:57 PM CDT [facility] MONOCYTES % 7.1 % 11/21/2021 2:57 PM CDT [facility] EOSINOPHILS % 1.1 % 11/21/2021 2:57 PM CDT [facility] BASOPHILS % 0.3 % 11/21/2021 2:57 PM CDT [facility] IMMATURE GRANS % 0.3 % 11/21/2021 2:57 PM CDT [facility] ABS. NEUTROPHILS 4.60 1.60 - 8.30 x10'3/uL 11/21/2021 2:57 PM CDT [facility] ABS. LYMPHOCYTES 2.18 0.80 - 4.70 x10'3/uL 11/21/2021 2:57 PM CDT [facility] ABS. MONOCYTES 0.53 0.00 - 1.50 x10'3/uL 11/21/2021 2:57 PM CDT [facility] ABS. EOSINOPHILS 0.08 0.00 - 0.40 x10'3/uL 11/21/2021 2:57 PM CDT [facility] ABS. BASOPHILS 0.02 0.00 - 0.20 x10'3/uL 11/21/2021 2:57 PM CDT [facility] ABS. IMMATURE GRANULOCYTES 0.02 0.00 - 0.03 x10'3/uL 11/21/2021 2:57 PM CDT [facility] 11/21/2021 7:56 AM CDT us Haris Hoffman DO LABORATORY Final Re sult [facility] [place] [address] [place] [address], documented in this encounter Visit Diagnoses Diagnosis [...] diseases documented in this encounter Care Teams Cisco Consultant Relationship Specialty Start Date End Date Haris Hoffman DO [address] [place] [address] PCP - General FAMILY PRACTICE 05/09/19 documented as of this encounter
--- OUTSIDE RECORDS SUMMARY | 2024-07-02 10:28 | XMS_ITS | Encounter Summary ---
Author Organization [facility] Address [address] [place] [address]. [place], [place] [address] [place] [address] Care Team Providers Care Hot Plate Plywood Press Operator Name Role Phone Haris Hoffman [...] st Contact Info) Description 07/30/2024 8:40 AM WEBSPHERE COMMERCE CONSULTANT Office Visit [facility] Family & Internal Medicine [address] [phone] Haris Hoffman DO [address] [place] [address] documented as of this encounter Visit Diagnoses Not on filedocumented in this encounter Care Teams Hot Plate Plywood Press Operator Relationship Specialty Start Date End Date Haris Hoffman DO [address] [place] [address] PCP - General FAMILY PRACTICE 05/09/19 documented as of this encounter
--- OUTSIDE RECORDS SUMMARY | 2024-07-02 10:28 | XMS_ITS | Encounter Summary ---
Author Organization [facility] Address [address] [place] [address]. [place], [place] [address] [place] [address] Care Team Providers Care Director Script Name Role Phone Unavailable Primary Care Provider Unavailabl e Encounter Details Date Type Department Care Team (Late st Contact Info) Description 10/29/2007 [facility] [address] [place] [address] Mike Wheeler MD Social History Tobacco Use [...] st Contact Info) Description 07/30/2024 8:40 AM OPTICAL GOODS DRILLING MACHINE OPERATOR Office Visit [facility] Family & Internal Medicine [facility] [address] [place] [address] Haris Hoffman DO [address] [place] [address] documented as of this encounter Visit Diagnoses Not on filedocumented in this encounter
--- OUTSIDE RECORDS SUMMARY | 2024-07-02 10:28 | XMS_ITS | Encounter Summary ---
Author Organization [facility] Address [address] [place] [address]. [place], [place] [address] [place] [address] Care Team Providers Care Mechanical Maintenance Technician Name Role Phone Haris Hoffman DO Primary Care Provider + Reason for Referral * Consultation (Routine) - Closed Specialty Diagnoses / Procedures Referred By Contac t Referred To Contact OTOLARYNGOLOGY Diagnoses Recurrent sinus infections Haris Hoffman DO [address] [place] [address] Phone: tel: fax: [address] [place] [address] Phone: tel: fax: Referral ID Status Reason Start Date Expiration Date Visits Re quested Visits Authorized [id number] Closed 05/09/2019 06/07/2020 99 99 Reason for Visit * Reason Comments Establish Care Encounter Details Date Type Department Care Team (Late st Contact Info) Description 05/09/2019 9:00 AM CDT Office Visit [facility] Family & Internal Medicine [facility] [address] [place] [address] Haris Hoffman DO [address] [place] [address] Establish Care Social History Tobacco Use Types [...] coffee grounds. Where can I learn more? [employer] https://familydoctor.org/condition/refluxacid-reflux/ NHS Choices https://www.nhs.uk/conditions/dnfzpwbdr-zsq-krun-reflux/ Last Reviewed Date 2018-08-20 Consumer Information Use [...] right for you. Copyright Copyright ?? 2019 [employer] Clinical Drug Information, Inc. and its affiliates [...] Where can I learn more? GI Society [employer] Society [employer] Intestinal Research http://www.badgut.org/information-centre/health-nutrition/dlkt-jrn-hfkuo-disease / Last Reviewed Date 2016-04-14 Consumer Information [...] right for you. Copyright Copyright ?? 2019 [employer] Clinical Drug Information, [employer] and its affiliates and/or licensors. All rights [...] Mild episode of recurrent major depressive disorder (CMS/[facility]) - buPROPion XL 150 MG 24 hr [...] st Contact Info) Description 07/30/2024 8:40 AM TRUCK BODY REPAIRER Office Visit [facility] Family & Internal Medicine - [address] [phone] Haris Hoffman DO [address] [place] [address] Scheduled Referrals Name Type Priority Associated Diagnoses Orde r Schedule Ambulatory referral to ENT Referral Routine Recurrent sinus infections Ordered: 05/09/2019 documented as of this encounter Visit Diagnoses Diagnosis Encounter to establish care with new doctor- Primary Other reasons for seeking consultation Encounter for preventative adult health care examination Gastroesophageal reflux disease with esophagitis Mild episode of recurrent major depressive disorder ([facility]) BMI 30.0-30.9,adult Body Mass Index 30.0-30.9, adult Recurrent sinus infections Unspecified sinusitis (chronic) Vitamin D deficiency Unspecified vitamin D deficiency documented in this encounter Care Teams Mechanical Maintenance Technician Relationship Specialty Start Date End Date Haris Hoffman DO [address] [place] [address] PCP - General FAMILY PRACTICE 05/09/19 documented as of this encounter
--- OUTSIDE RECORDS SUMMARY | 2024-07-02 10:28 | XMS_ITS | Encounter Summary ---
Author Organization [facility] Address [address] [place] [address]. [place], [place] [address] [place] [address] Care Team Providers Care Seafood Manager Name Role Phone Haris Hoffman DO [...] st Contact Info) Description 07/30/2024 8:40 AM COUNSELOR DORMITORY Office Visit [facility] Family & Internal Medicine [address] [phone] Haris Hoffman DO [address] [place] [address] documented as of this encounter Visit Diagnoses Not on filedocumented in this encounter Care Teams Seafood Manager Relationship Specialty Start Date End Date Haris Hoffman DO [address] [place] [address] PCP - General FAMILY PRACTICE 05/09/19 documented as of this encounter
--- OUTSIDE RECORDS SUMMARY | 2024-07-02 10:28 | XMS_ITS | Encounter Summary ---
Author Organization [facility] Address [address] [place] [address]. [place], [place] [address] [place] [address] Care Team Providers Care Injection Specialist Name Role Phone Haris Hoffman DO Primary Care Provider + Reason for Visit * Reason Comments Colonoscopy Report (SCAN) Encounter Details Date Type Department Care Team ([facility] Contact Info) Description 10/18/2018 Scan HEALTH INFO [...] Upcoming Encounters Date Type Department Care Team ([facility] Contact Info) Description 07/30/2024 8:40 AM SOFTBALL PLAYER Office Visit [facility] Family & Internal Medicine [address] [phone] Haris Hoffman DO [address] [place] [address] documented as of this encounter Procedures Procedure Name Priority Date/Time Associated Diagnosis Comments COLONOSCOPY GENERIC (SCAN ORDER) 10/18/2018 documented in this encounter Results * COLONOSCOPY GENERIC (SCAN ORDER) (10/18/2018) 10/18/2018 [facility] Scanned SCANNING Final Resu lt documented in this encounter Visit Diagnoses Not on filedocumented in this encounter Care Teams Injection Specialist Relationship Specialty Start Date End Date Haris Hoffman DO [address] [place] [address] PCP - General FAMILY PRACTICE 05/09/19 documented as of this encounter
--- OUTSIDE RECORDS SUMMARY | 2024-07-02 10:28 | XMS_ITS | Encounter Summary ---
Author Organization [facility] Address [address] [place] [address]. [place], [place] [address] [place] [address] Care Team Providers Care Marine Firefighter Name Role Phone Haris Hoffman DO Primary [...] st Contact Info) Description 07/30/2024 8:40 AM LEATHER CARVER Office Visit [facility] Family & Internal Medicine [address] [address] Haris Hoffman DO [address] [place] [address] documented as of this encounter Visit Diagnoses Not on filedocumented in this encounter Care Teams Marine Firefighter Relationship Specialty Start Date End Date Haris Hoffman DO [address] [place] [address] PCP - General FAMILY PRACTICE 05/09/19 documented as of this encounter
--- OUTSIDE RECORDS SUMMARY | 2024-07-02 10:28 | XMS_ITS | Encounter Summary ---
Author Organization [facility] Address [address] [place] [address]. [place], [place] [address] [place] [address] Care Team Providers Care Parcel Post Delivery Name Role Phone Haris Hoffman DO Primary [...] st Contact Info) Description 07/30/2024 8:40 AM INTELLIGENCE RESEARCH SPECIALIST Office Visit [facility] Family & Internal Medicine [address] [phone] Haris Hoffman DO [address] [place] [address] documented as of this encounter Visit Diagnoses Not on filedocumented in this encounter Care Teams Parcel Post Delivery Relationship Specialty Start Date End Date Haris Hoffman DO [address] [place] [address] PCP - General FAMILY PRACTICE 05/09/19 documented as of this encounter
--- OUTSIDE RECORDS SUMMARY | 2024-07-02 10:28 | XMS_ITS | Encounter Summary ---
Author Organization [facility] Address [address] [place] [address]. [place] [address] Care Team Providers Care Postal Superintendent Name Role Phone Haris Hoffman DO Primary Care Provider + Reason for Visit * Reason Onset Date Comments Referral 09/12/2019 Encounter Details Date Type Department Care Team (Late st Contact Info) Description 09/12/2019 Telephone [facility] Family & Internal Medicine [facility] [address] [place] [address] Haris Hoffman DO [address] [place] [address] Referral Social History Tobacco Use [...] 8:56 AM CST Records request faxed to [facility] F: [phone] TRY HATCHERY LABORER * Lola Garza RN - 09/16/2019 8:43 AM CST Patient went to [facility] ENT yesterday and has a follow up on Sunday. TRY HATCHERY LABORER * Lola Garza RN - 09/15/2019 9:17 AM CST [facility] 09/15/19 TRY HATCHERY LABORER * Laurence Horton MA - 09/12/2019 3:08 PM CST 09-12-19 LMTC checking on pt ENT referral if pt when, who he saw, need to obtain notes, can direct call Laurence TRY HATCHERY LABORER documented in this encounter Plan of Treatment Upcoming Encounters Date Type Department Care Team (Late st Contact Info) Description 07/30/2024 8:40 AM POULTRY HATCHERY LABORER Office Visit [facility] Family & Internal Medicine - [place] [address] [place] [address] Haris Hoffman DO [address] [place] [address] documented as of this encounter Visit Diagnoses Not on filedocumented in this encounter Care Teams Postal Superintendent Relationship Specialty Start Date End Date Haris Hoffman DO [facility] [place] [address] PCP - General FAMILY PRACTICE 05/09/19 documented as of this encounter
--- OUTSIDE RECORDS SUMMARY | 2024-07-02 10:29 | XMS_ITS | Continuity of Care Document ---
Author Organization [facility] Address [address] [place] [address] Phone Care Team Providers Care Computer Applications Engineer Name Role Phone Yon Angel MD Unavailable Unavailable Advance Directives Directive Yes / No Effective Date File Name No Information Encounters Encounter Description Practice Location Reason(s) For Visit Diagnoses Date Provider Providers Copied on Encounter [employer], [address], [place], [place], [id number], tel:[phone] [facility] No Information Jeanne Marvin. [address] [place], [place], [id number], [place]. tel:[phone] Referring Provider: Misael Resendiz, [address], [place], [address]. tel:[phone] Family History Family Member Type Diagnosis Age At Onset No Information Payers Payer name Insurance type Covered republican ID Christina whitehead(s) WILMAN [id number] Social History Type Description Quantity Date Captured [...]
== END 2024-06-28 17:00 | disposition home or self-care (01) ==
PROVIDERS: Emergency Provider Emergency Medicine; PCP Student in an Organized Health Care Education/Training Program
DX: R11.2 Nausea with vomiting, unspecified (principal); J18.9 Pneumonia, unspecified organism
CPT/HCPCS: 36415; 74177; 80053; 81003; 83690; 85025; 96361; 96374; 96375; 99284; A9270; J2405; J7030; Q9967

== ENCOUNTER 2024-08-25 09:11 | Observation (INO) | payer OTHER, SELFPAY ==
[2024-08-25] VITALS (7 sets, daily range): BP systolic 128–154; BP diastolic 77–99; PULSE 96–101; RESP 15–24; TEMP 36.6–36.8; O2SAT 94–98; BMI 35.8
--- NOTE | ~2024-08-25 | CT_ITS ---
EXAMINATION: CTA chest PE abdomen pel DATE: 08/25/2024 11:45 INDICATION: Hemoptysis. Abdominal pain. TECHNIQUE: Computed tomography angiography (CTA) of the chest was performed with 100 mL Omnipaque-350 intravenous contrast timed to evaluate the pulmonary arteries. Coronal maximum intensity projection 3D-reconstructions were created by the technologist. Computed tomography (CT) of the abdomen and pelv is was performed with intravenous contrast. Automated exposure control and iterative reconstruction t echnique were employed. The dose-length product was 2233.58 mGy-cm. COMPARISON: CT abdomen and pelvis 06/28/2024 FINDINGS: CTA chest: The lung volumes are small. There are groundglass opacities in all lobes with a posterior predominance. No pleural effusion. The heart size is normal. No pericardial effusion. There is no pul monary embolus. There is a chronic anterior wedging of T11. There is moderate thoracic spondylosis. CT abdomen and pelvis: There is diffuse hepatic steatosis. There is a moderate-sized sliding hiatal h ernia. The gallbladder, spleen, pancreas, adrenal glands, and kidneys are normal. There are no dilate d loops of bowel. The appendix is normal. There are no pathologically enlarged lymph nodes. There is no free intraperitoneal fluid. There are changes of anterior fusion procedure at L5-S1. There is afshan re lumbar spondylosis. IMPRESSION: 1. Small lung volumes with diffuse lung disease, consistent with atypical pneumonia versus mild pulmo nary edema versus atelectasis. 2. Moderate-sized sliding hiatal hernia. 3. Diffuse hepatic steatosis. 4. No pulmonary embolus. Reviewed, dictated and finalized at location A. TION SERVICES MANAGER IMPRESSION: 1. Small lung volumes with diffuse lung disease, consistent with atypical pneum onia versus mild pulmonary edema versus atelectasis. 2. Moderate-sized sliding hiatal hernia. 3. Diffuse hepatic steatosis. 4. No pulmonary embolus.
--- OUTSIDE RECORDS SUMMARY | 2024-08-25 09:35 | XMS_ITS | Clinical Summary ---
Author Organization [facility] Address [address] [place] [address] Care Team Providers Care Wrapper Stitcher Name Role Phone Sangkenishajesus albertoEmily Vicente HIDALGO Primary Care Provider + Allergies Active Allergy Reactions Criticality Noted Date Comments Steroids Other (see comment) High 06/28/2024 causes rachel Medications Cholecalciferol (VITAMIN D-3 OR) Take 3,000 Units by mouth daily. Active eszopiclone (LUNESTA) 1 MG tablet Take 1 tablet (1 mg total) by mouth nightly at bedtime. at bedtime. Active QUEtiapine (SEROQUEL) 50 MG tablet Take 0.5-1 tablets (25-50 mg total) by mouth nightly at bedtime. 12/04/19 23 Active lithium CR (LITHOBID) 450 MG tablet Take 4 tablets (1,800 mg total) by mouth nightly at bedtime. 09/27/19 24 Active dexmethylphenid ate XR (FOCALIN XR) 15 MG 24 hr capsule Take 1 capsule (15 mg total) by mouth daily. 06/19/20 24 Active VRAYLAR 1.5 MG capsule Take 2 capsules (3 mg total) by mouth daily. 06/11/20 24 Active ondansetron (ZOFRAN) 4 MG tablet TAKE 1 TABLET BY MOUTH DAILY NEEDED FOR NAUSEA FOR 30 DAYS 03/27/20 24 Active buPROPion XL (WELLBUTRIN XL) 300 MG 24 hr tablet Take 1 tablet (300 mg total) by mouth every morning. 07/10/20 24 Active propranolol LA (INDERAL LA) 120 MG 24 hr capsule 07/08/20 24 Active venlafaxine XR (EFFEXOR-XR) 150 MG 24 hr capsule Take 1 capsule (150 mg total) by mouth daily. 10/18/19 24 Active omeprazole (PRILOSEC) 40 MG capsuleIndicati ons:Gastroesoph ageal reflux disease, unspecified whether esophagitis present Take 1 capsule twice daily for 6 weeks, then take 1 capsule daily 180 capsule 1 07/30/19 25 Active sucralfate (CARAFATE) 1 G tabletIndicatio ns:Gastroesopha geal reflux disease, unspecified whether esophagitis present Take 1 tablet (1 g total) by mouth 3 (three) times daily before meals. 90 tablet 2 08/15/19 25 Active cefdinir (OMNICEF) 300 MG Cap capsuleIndicati ons:Subacute cough Take 1 capsule (300 mg total) by mouth 2 (two) times daily. 20 capsule 08/15/19 25 Active ADDERALL XR 20 MG 24 hr capsule Take 1 capsule by mouth daily. 11/12/19 22 025 Discontinued(Fo rmulary change) buPROPion XL 150 MG 24 hr tablet Take 1 tablet (150 mg total) by mouth daily. 11/11/19 22 025 Discontinued(Fo rmulary change) venlafaxine XR 75 MG 24 hr capsule TAKE 1 CAPSULE BY MOUTH EVERY DAY WITH FOOD FOR 30 DAYS 11/02/19 22 025 Discontinued(Fo rmulary change) propranolol LA (INDERAL LA) 60 MG 24 hr capsule 1 capsule (60 mg total). 09/27/19 24 025 Discontinued(Fo rmulary change) lurasidone (LATUDA) 40 MG Tab tablet Take 1 tablet (40 mg total) by mouth nightly at bedtime. 09/17/19 24 025 Discontinued Active Problems Problem Noted Date Diagnosed Date Elevated glucose 08/15/2024 Elevated liver enzymes 08/15/2024 Gastroesophageal reflux dise ase, unspecified whether esophagitis present 08/15/2024 Attention deficit hyperactiv ity disorder (ADHD), unspecified ADHD type 11/16/2021 PTSD (post-traumatic stress disorder) 11/16/2021 ROSY (generalized anxiety disorder) 11/16/2021 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 05/09/2019 BMI 30.0-30.9,adult 05/09/2019 Gastroesophageal reflux disease with esophagitis 05/09/2019 Recurrent sinus infections 05/09/2019 Encounters Date Type Department Care Team Description 08/15/2024 9:00 AM INTERIOR ASSEMBLIES DEVELOPER [employer] Office Visit [facility] [address] [address] Emily Jade, DO Cough (Patient c/o cough, chest congestion, and fatigue. Patient also endorses mild sore throat, attributes this to coughing. Patient states he had pneumonia at the end of June and feels like he may not have recovered fully from it. ) 08/15/2024 Travel 08/06/2024 8:40 AM INTERIOR ASSEMBLIES DEVELOPER [employer] Laboratory Only [address] [address] Emily Jade, 08/06/2024 - 08/06/2024 11:59 PM INTERIOR ASSEMBLIES DEVELOPER [employer] Hospital Encounter [facility] [address] [place] [address] Emily Jade, DO Discharge Disposition: Home or Self Care (Routine Discharge) 08/06/2024 Travel 07/30/2024 8:40 AM INTERIOR ASSEMBLIES DEVELOPER [employer] Office Visit [facility] [address] [address] Emily Jade, Gi Problem (The patient reports acid reflux and vomiting almost daily for 3-4 months. The patient states he has woke up with food in his mouth in the middle of the night. ) 07/30/2024 Travel 07/17/[address] [address] Emily Jade, Referral 06/28/2024 Scan HEALTH INFO SRVCS Scanned, Doc [facility] (SCAN); Lab (SCAN) from Last 3 Months Immunizations Name Administration Dates Next Due Fluzone (IIV3, Trivalent, 0.5 ML Prefilled Syrin ) 07/30/2024 Fluzone 6 Months+ Quad (0.5 mL Prefilled Syringe ) 10/03/2023 PFIZER COVID-19 (12+) MRNA, LNP-S, PF, JOSE R-SUCROSE, 30 MCG/0.3 ML (COMIRNATY) 07/30/2024 Tdap (Generic) 09/02/2020 Family History Medical History Relation Comments Diabetes Brother Diabetes Mother Heart Disease Mother Relation Status Comments Brother Mother Social History Tobacco Use Types Packs/Day Years Used Date Smoking Tobacco: Never Smokeless Tobacco: Never Tobacco Cessation:Counseling Given: No Alcohol Use Standard Drinks/Week Comments Not Currently 0 (1 standard drink = 0.6 oz pur e alcohol) has not drank in 4+ years AUDIT-C Answer Date Recorded Frequency of Alcohol Consumption Monthly or less 05/09/2019 Average Number of Drinks 1 or 2 019 Frequency of Binge Drinking Not on file 04/16 PHQ-2 Answer Date Recorded Patient Health Questionnaire-2 Score 0 07/30/2024 Sex and Gender Information Value Date Recorded Sex Assigned at Male 07/30/2024 9:03 AM INTERIOR ASSEMBLIES DEVELOPER [employer] Legal Sex Male 7:17 PM CDT Gender Identity Male 07/30/2024 9:03 AM INTERIOR ASSEMBLIES DEVELOPER [employer] Sexual Orientation Not on file Occupation Industry Job Start Date Job End Date Not on file Not on file Not on file Not on file Last Filed Vital Signs Vital Sign Reading Time Taken Comments Blood Pressure 126/82 08/15/2024 9:50 AM INTERIOR ASSEMBLIES DEVELOPER [employer] Pulse 72 08/15/2024 9:50 AM INTERIOR ASSEMBLIES DEVELOPER [employer] Temperature 36.9 C (98.4 F) 08/15/2024 9:50 AM INTERIOR ASSEMBLIES DEVELOPER [employer] Respiratory Rate 20 08/15/2024 9:50 AM INTERIOR ASSEMBLIES DEVELOPER [employer] Oxygen Saturation 97% 08/15/2024 9:50 AM INTERIOR ASSEMBLIES DEVELOPER [employer] Inhaled Oxygen Concentration - - Weight 129.7 kg (285 lb 14.4 oz) 08/15/2024 9:50 AM INTERIOR ASSEMBLIES DEVELOPER [employer] Height 188 cm (6' 2 ) 08/15/2024 9:50 AM INTERIOR ASSEMBLIES DEVELOPER [employer] Body Mass Index 36.71 08/15/2024 9:50 AM INTERIOR ASSEMBLIES DEVELOPER [employer] Plan of Treatment Upcoming Encounters Date Type Department Care Team (Late st Contact Info) Description 10/07/2024 11:20 AM CDT Office Visit [facility] Multispecialty Care - [address] [place] [address] Emily Jade P, DO [address] [place] [address] Mary Dumont, CHELO 3 [facility] [address] [place] [address] Health Maintenance Due Date Last Done Comments Annual Physical 05/09/2020 05/09/2019 Hepatitis B Vaccines (1 of 3 - 19+ 3-dose series) 08/30/2024 Postponed from 1997 (Future Appointment) Colorectal Cancer Screening Colonoscopy (10 Years) 10/18/2028 10/18/2018 DTaP, Tdap and Td Vaccines (2 - Td or Tdap) 09/02/2030 09/02/2020 Hepatitis C Completed 11/21/2021 COVID-19 Vaccine Completed 07/30/2024, , 10/31/2020, Additional history exists Influenza Adult Completed 07/30/2024, 10/03/2023 PHQ-2 (Physician Munith) Completed 07/30/2024 HPV Vaccines Aged Out No longer eligi ble based on patient's age to complete this topic Meningococcal B Vaccine Aged Out No l onger eligible based on patient's age to complete this topic Meningococcal Vaccine Aged Out No yvette maciel eligible based on patient's age to complete this topic Pneumococcal Vaccine: Pediatrics (0 to 5 Years) and At-Risk Patients (6 to 64 Years) Aged Out No longer eligible based on patient's age to complete this topic RSV Immunizations Under 20 Months Aged Out No longer eligible based on patient's age to complete this topic Procedures Procedure Name Priority Date/Time Associated Diagnosis Comments XR CHEST PA+LAT STAT 08/15/2024 10:32 AM INTERIOR ASSEMBLIES DEVELOPER [employer] Subacute cough COLLECT.CAPILLARY (FNGR,HEEL,EAR) Routine 08/15/2024 10:15 AM INTERIOR ASSEMBLIES DEVELOPER [employer] Elevated glucose HEMOGLOBIN, GLYCOSYLATED Routine 08/15/2024 Elevated glucose COLLECTION VENOUS BLOOD VENIPUNCTURE Routine 08/06/2024 8:46 AM INTERIOR ASSEMBLIES DEVELOPER [employer] Anemia, unspecified type Screening for endocrine, metabolic and immunity disorder Screening for lipid disorders Annual physical exam CBC W/DIFF AUTOMATED Routine 08/06/2024 8:45 AM INTERIOR ASSEMBLIES DEVELOPER [employer] Anemia, unspecified type Screening for endocrine, metabolic and immunity disorder Screening for lipid disorders Annual physical exam VITAMIN B-12 Routine 08/06/2024 8:45 AM INTERIOR ASSEMBLIES DEVELOPER [employer] Anemia, unspecified type Screening for endocrine, metabolic and immunity disorder Screening for lipid disorders Annual physical exam RETICULOCYTE CT, AUTO Routine 08/06/2024 8:45 AM INTERIOR ASSEMBLIES DEVELOPER [employer] Anemia, unspecified type Screening for endocrine, metabolic and immunity disorder Screening for lipid disorders Annual physical exam HAPTOGLOBIN, QUANT Routine 08/06/2024 8: 45 AM INTERIOR ASSEMBLIES DEVELOPER [employer] Anemia, unspecified type Screening for endocrine, metabolic and immunity disorder Screening for lipid disorders Annual physical exam FERRITIN Routine 08/06/2024 8:45 AM INTERIOR ASSEMBLIES DEVELOPER [employer] Anemia, unspecified type Screening for endocrine, metabolic and immunity disorder Screening for lipid disorders Annual physical exam IRON SAT PANEL (IRON,IBC,%SAT) Routine 08/06/2024 8:45 AM INTERIOR ASSEMBLIES DEVELOPER [employer] Anemia, unspecified type Screening for endocrine, metabolic and immunity disorder Screening for lipid disorders Annual physical exam TSH W/REFLEX Routine 08/06/2024 8:45 AM INTERIOR ASSEMBLIES DEVELOPER [employer] Anemia, unspecified type Screening for endocrine, metabolic and immunity disorder Screening for lipid disorders Annual physical exam COMPREHENSIVE METABOLIC PANEL Routine 08/06/2024 8:45 AM INTERIOR ASSEMBLIES DEVELOPER [employer] Anemia, unspecified type Screening for endocrine, metabolic and immunity disorder Screening for lipid disorders Annual physical exam LIPID PANEL Routine 08/06/2024 8:45 AM INTERIOR ASSEMBLIES DEVELOPER [employer] Anemia, unspecified type Screening for endocrine, metabolic and immunity disorder Screening for lipid disorders Annual physical exam SOLUBLE TRANSFERRIN RECEPTOR Routine 08/06/2024 8:31 AM INTERIOR ASSEMBLIES DEVELOPER [employer] Anemia, unspecified type Screening for endocrine, metabolic and immunity disorder FOLIC ACID SERUM Routine 08/06/2024 8:31 AM INTERIOR ASSEMBLIES DEVELOPER [employer] Anemia, unspecified type Screening for endocrine, metabolic and immunity disorder Screening for lipid disorders Annual physical exam LDH, LACTATE DEHYDROGENASE Routine 08/06/2024 8:31 AM INTERIOR ASSEMBLIES DEVELOPER [employer] Anemia, unspecified type Screening for endocrine, metabolic and immunity disorder Screening for lipid disorders Annual physical exam CT GENERIC 06/28/2024 OUTSIDE LAB (SCAN ORDER) 06/28/2024 OUTSIDE LAB (SCAN ORDER) 06/28/2024 OUTSIDE LAB (SCAN ORDER) 06/28/2024 HEPATITIS C ANTIBODY Routine 11/21/2021 7:56 AM CDT Need for hepatitis C screening test COLONOSCOPY GENERIC (SCAN ORDER) 10/18/2018 from Last 3 Months or Most Recently Relevant to Health Maintenance Results * XR CHEST PA+LAT (08/15/2024 10:32 AM INTERIOR ASSEMBLIES DEVELOPER [employer]) Anatomical Region Laterality Modality Chest Radiographic Shaye ging 08/15/2024 10:3 5 AM INTERIOR ASSEMBLIES DEVELOPER [employer] Impressions 08/15/2024 10:36 AM INTERIOR ASSEMBLIES DEVELOPER [employer] IMPRESSION: 1. No radiographic evidence of active chest disease. 2. Potential hiatal hernia. Ordered By: EMILY JADE Interpreted By: Toi Vazquez MD, 08/15/2024 10:35 AM Narrative 08/15/2024 10:36 AM INTERIOR ASSEMBLIES DEVELOPER [employer] [facility] Family and Internal Medicine - [address] [address] Examination: XR CHEST PA+LAT Exam time: 08/15/2024 10:32 AM Clinical history: Cough for 6 weeks. History of pneumonia. Comparison: No prior exam Technique: Upright PA and lateral views Findings: Cardiac silhouette and pulmonary vasculature are within normal limits. No evidence of focal atelectasis or consolidation. No evidence of bronchial wall thickening or abnormal pulmonary interstitium. Rounded opacity midline retrocardiac region most consistent with small hiatal hernia. No evidence of pleural effusion. Overall, no radiographic evidence of active chest disease. Procedure Note Toi Vazquez MD - 08/15/2024 [facility] [place] [address] Examination: XR CHEST PA+LAT Exam time: 08/15/2024 10:32 AM Clinical history: Cough for 6 weeks. History of pneumonia. Comparison: No prior exam Technique: Upright PA and lateral views Findings: Cardiac silhouette and pulmonary vasculature are within normallimits. No evidence of focal atelectasis or consolidation. No evidence ofbronchial wall thickening or abnormal pulmonary interstitium. Roundedopacity midline retrocardiac region most consistent with small hiatalhernia. No evidence of pleural effusion. Overall, no radiographic evidenceof active chest disease. IMPRESSION: 1. No radiographic evidence of active chest disease. 2. Potential hiatal hernia. Ordered By: EMILY JADE Interpreted By: Toi Vazquez MD, 08/15/2024 10:35 AM Emily Jade DO GENERAL IMAGING Final Re sult * (ABNORMAL) A1C (BACK OFFICE) (08/15/2024) HGB A1C 6.2(A) % [facility] 08/15/2024 Emily Jade [place] [address], [place] * TSH W/REFLEX (08/06/2024 8:45 AM INTERIOR ASSEMBLIES DEVELOPER [employer]) TSH 1.455 0.358 - 3.740 uIU/ML 08/06/2024 5:23 PM INTERIOR ASSEMBLIES DEVELOPER [employer] [facility] 08/06/2024 8:45 AM INTERIOR ASSEMBLIES DEVELOPER [employer] Emily Jade DO LABORATORY Final Re sult Performing Organization Address [facility] Co de Phone Number [facility] [address] [place] [address], * IRON SAT PANEL (IRON,IBC,%SAT) (08/06/2024 8:45 AM INTERIOR ASSEMBLIES DEVELOPER [employer]) IRON 107 65 - 175 MCG/DL 08/06/2024 5:23 PM INTERIOR ASSEMBLIES DEVELOPER [employer] [facility] IRON BINDING CAPACITY 318 250 - 450 MCG/DL 08/06/2024 5:23 PM INTERIOR ASSEMBLIES DEVELOPER [employer] [facility] IRON SATURATION 34 % 5:23 PM INTERIOR ASSEMBLIES DEVELOPER [employer] [facility] Comment:REFERENCE RANGE NOT ESTABLISHED 08/06/2024 8:45 AM INTERIOR ASSEMBLIES DEVELOPER [employer] Emily Jade LABORATORY Final Re sult Performing Organization Address [facility] Co de Phone Number [address] [address], [place] [phone] * VITAMIN B-12 (08/06/2024 8:45 AM INTERIOR ASSEMBLIES DEVELOPER [employer]) VITAMIN B12 S/P/B 353 193 - 986 PG/ML 08/06/2024 5:23 PM INTERIOR ASSEMBLIES DEVELOPER [employer] [facility] 08/06/2024 8:45 AM INTERIOR ASSEMBLIES DEVELOPER [employer] Emily Jade LABORATORY Final Re sult Performing Organization Address City/[facility] Co de Phone Number [address] [address], [place] [phone] * RETICULOCYTE CT, AUTO (08/06/2024 8:45 AM INTERIOR ASSEMBLIES DEVELOPER [employer]) RETICULOCYTE COUNT 2.0 0.7 - 2.3 % 08/06/2024 5:24 PM INTERIOR ASSEMBLIES DEVELOPER [employer] [facility] ABSOLUTE RETICULOCYTE 0.10 0.03 - 0.11 x10'6/uL 08/06/2024 5:24 PM INTERIOR ASSEMBLIES DEVELOPER [employer] [facility] IMMATURE RETIC FRACTION 11.5 2.3 - 13.4 % 08/06/2024 5:24 PM INTERIOR ASSEMBLIES DEVELOPER [employer] [facility] RETIC HGB 34.5 28.0 - 35.0 PG 08/06/2024 5:24 PM INTERIOR ASSEMBLIES DEVELOPER [employer] [facility] 08/06/2024 8:45 AM INTERIOR ASSEMBLIES DEVELOPER [employer] Emily Jade LABORATORY Final Re sult Performing Organization Address [facility] Co de Phone Number [facility] [address] [place] [address], [place] [phone] * (ABNORMAL) HAPTOGLOBIN, QUANT (08/06/2024 8:45 AM INTERIOR ASSEMBLIES DEVELOPER [employer]) HAPTOGLOBIN 269.0(H) 30.0 - 200.0 MG/DL 08/06/2024 5:37 PM INTERIOR ASSEMBLIES DEVELOPER [employer] [facility] 08/06/2024 8:45 AM INTERIOR ASSEMBLIES DEVELOPER [employer] Emily Jade LABORATORY Final Re sult Performing Organization Address [facility] Co de Phone Number [facility] [address] [place] [address], [place] [phone] * (ABNORMAL) COMPREHENSIVE METABOLIC PANEL (08/06/2024 8:45 AM INTERIOR ASSEMBLIES DEVELOPER [employer]) SODIUM S/P/B 135(L) 136 - 145 MMOL/L 08/06/2024 5:23 PM INTERIOR ASSEMBLIES DEVELOPER [place] [facility] POTASSIUM S/P/B 4.3 3.5 - 5.1 MMOL/L 08/06/2024 5:23 PM INTERIOR ASSEMBLIES DEVELOPER [place] [facility] CHLORIDE S/P/B 101 98 - 107 MMOL/L 08/06/2024 5:23 PM [facility] CO2 25.6 21 - 32 MMOL/L 08/06/2024 5:23 PM [facility] GLUCOSE 117(H) 70 - 99 MG/DL 08/06/2024 5:23 PM [facility] BUN 9 7 - 18 MG/DL 08/06/2024 5:23 PM [facility] CREATININE S/P/B 0.98 0.70 - 1.30 MG/DL 08/06/2024 5:23 PM [facility] CALCIUM S/P/B 8.5 8.4 - 10.5 MG/DL 08/06/2024 5:23 PM [facility] BILIRUBIN TOTAL S/P/B 0.7 0.2 - 1.0 MG/DL 08/06/2024 5:23 PM [facility] ALKALINE PHOSPHATASE S/P/B 102 45 - 115 U/L 08/06/2024 5:23 PM [facility] AST 64(H) 15 - 37 U/L 08/06/2024 5:23 PM [facility] ALT 132(H) 16 - 63 U/L 08/06/2024 5:23 PM [facility] TOTAL PROTEIN S/P/B 6.8 6.4 - 8.2 G/DL 08/06/2024 5:23 PM [facility] ALBUMIN S/P/B 3.7 3.4 - 5.0 G/DL 08/06/2024 5:23 PM [facility] ANION GAP 8.4 5 - 15 MMOL/L 08/06/2024 5:23 PM [facility] Comment:REFERENCE RANGE NOT ESTABLISHED OSMOLALITY (CALC) 280 MOSM/KG 025 5:23 PM [facility] Comment:REFERENCE RANGE NOT ESTABLISHED GFR ESTIMATE >90 >90 ML/MIN/1. 73 M2 08/06/2024 5:23 PM [facility] GFR NOTES GFR REFERENCE S: 08/06/2024 5:23 PM [facility] Comment: THE ESTIMATED GFR IS CALCULATED USING [...] ml/min/1.73 m2 G5,KIDNEY FAILURE: <15 ml/min/1.73 m2 08/06/2024 8:45 AM INTERIOR ASSEMBLIES DEVELOPER [employer] us Emily Jade DO LABORATORY Final Re sult [facility] [address] [place] [address], * LIPID PANEL (08/06/2024 8:45 AM INTERIOR ASSEMBLIES DEVELOPER [employer]) CHOLESTEROL 157 <200 MG/DL 08/06/2024 5:23 PM [facility] TRIGLYCERIDES 127 <150 MG/DL 08/06/2024 5:23 PM [facility] HDL 42 >40 MG/DL 08/06/2024 5:23 PM [facility] LDL-C 90 <100 MG/DL 08/06/2024 5:23 PM [facility] VLDL CALCULATION 25 5 - 28 MG/DL 08/06/2024 5:23 PM [facility] CHOL/HDL RATIO 3.7 0.0 - 4.0 08/06/2024 5:23 PM INTERIOR ASSEMBLIES DEVELOPER [employer] [facility] LDL/HDL 2.1 0.41 - 2.13 08/06/2024 5:23 PM INTERIOR ASSEMBLIES DEVELOPER [employer] [facility] NON HDL CHOLESTEROL 115 <140 MG/DL 08/06/2024 5:23 PM INTERIOR ASSEMBLIES DEVELOPER [employer] [facility] 08/06/2024 8:45 AM INTERIOR ASSEMBLIES DEVELOPER [employer] Emily Jade DO LABORATORY Final Re sult [facility] [address] [place] [address], * (ABNORMAL) CBC W/DIFF AUTOMATED (08/06/2024 8:45 AM INTERIOR ASSEMBLIES DEVELOPER [employer]) WBC 7.38 4.00 - 10.80 x10'3/uL 08/06/2024 2:56 PM INTERIOR ASSEMBLIES DEVELOPER [employer] [facility] RBC 4.95 4.50 - 6.10 x10'6/uL 08/06/2024 2:56 PM [facility] HGB 15.4 13.0 - 18.0 G/DL 08/06/2024 2:56 PM [facility] HCT 45.8 37.0 - 52.0 % 08/06/2024 2:56 PM [facility] MCV 92.5 78.0 - 100.0 FL 08/06/2024 2:56 PM [facility] MCH 31.1(H) 27.0 - 31.0 PG 08/06/2024 2:56 PM [facility] MCHC 33.6 33.0 - 36.0 G/DL 08/06/2024 2:56 PM [facility] RDW 12.9 11.5 - 14.5 % 08/06/2024 2:56 PM [facility] PLT 305 150 - 350 x10'3/uL 08/06/2024 2:56 PM [facility] MPV 9.3 7.4 - 10.4 FL 08/06/2024 2:56 PM [facility] DIFFERENTIAL TYPE AUTOMATED DIFFERENTIAL 08/06/2024 2:56 PM [facility] NEUTROPHILS % 66.1 % 08/06/2024 2:56 PM [facility] LYMPHOCYTES % 21.1 % 08/06/2024 2:56 PM [facility] MONOCYTES % 9.5 % 08/06/2024 2:56 PM [facility] EOSINOPHILS % 2.4 % 08/06/2024 2:56 PM [facility] BASOPHILS % 0.4 % 08/06/2024 2:56 PM [facility] IMMATURE GRANS % 0.5 % 08/06/2024 2:56 PM [facility] ABS. NEUTROPHILS 4.87 1.60 - 8.30 x10'3/uL 08/06/2024 2:56 PM [facility] ABS. LYMPHOCYTES 1.56 0.80 - 4.70 x10'3/uL 08/06/2024 2:56 PM [facility] ABS. MONOCYTES 0.70 0.00 - 1.50 x10'3/uL 08/06/2024 2:56 PM [facility] ABS. EOSINOPHILS 0.18 0.00 - 0.40 x10'3/uL 08/06/2024 2:56 PM [facility] ABS. BASOPHILS 0.03 0.00 - 0.20 x10'3/uL 08/06/2024 2:56 PM [facility] ABS. IMMATURE GRANULOCYTES 0.04(H) 0.00 - 0.03 x10'3/uL 08/06/2024 2:56 PM [facility] 08/06/2024 8:45 AM INTERIOR ASSEMBLIES DEVELOPER [employer] us Emily Jade DO LABORATORY Final Re sult Performing Organization Address [facility] Co de Phone Number [facility] [address] [place] [address], [place] [phone] * FERRITIN (08/06/2024 8:45 AM INTERIOR ASSEMBLIES DEVELOPER [employer]) FERRITIN 199.0 26 - 388 NG/ML 08/06/2024 5:23 PM INTERIOR ASSEMBLIES DEVELOPER [employer] [facility] 08/06/2024 8:45 AM INTERIOR ASSEMBLIES DEVELOPER [employer] Emily Jade DO LABORATORY Final Re sult Performing Organization Address [facility] de Phone Number [address] [place] [address], [place] [phone] * SOLUBLE TRANSFERRIN RECEPTOR (08/06/2024 8:31 AM INTERIOR ASSEMBLIES DEVELOPER [place]) SOLUBLE TRANSFERRIN RECEPTOR 1.70 0.76 - 1.76 mg/L [facility] 08/06/2024 8:31 AM INTERIOR ASSEMBLIES DEVELOPER [place] 08/07/2024 6:06 AM INTERIOR ASSEMBLIES DEVELOPER [place] Narrative Resulting Agency Comment Performing Organization Information: Site ID: [id number] Name: [employer] [facility], Address: [address] [place] [id number] Director: Radha Kellogg MD,PhD,VALDO us Emily Jade DO LABORATORY Final Re sult Performing Organization Address [facility] de Phone Number [facility] [address] [address], * LDH, LACTATE DEHYDROGENASE (08/06/2024 8:31 AM INTERIOR ASSEMBLIES DEVELOPER [place]) Pathologist [facility] LDH 213 87 - 241 UNITS/L 08/06/2024 5:34 PM INTERIOR ASSEMBLIES DEVELOPER [employer] [facility] 08/06/2024 8:31 AM INTERIOR ASSEMBLIES DEVELOPER [employer] Emily Jade DO LABORATORY Final Re sult Performing Organization Address City/[facility]/ZIP Co de Phone Number [facility] [address] [place] [address], [place] [phone] * FOLIC ACID SERUM (08/06/2024 8:31 AM INTERIOR ASSEMBLIES DEVELOPER [place]) [facility] FOLATE 16.3 8.6 - 58.9 NG/ML 08/06/2024 4:06 PM INTERIOR ASSEMBLIES DEVELOPER [employer] [facility] 08/06/2024 8:31 AM INTERIOR ASSEMBLIES DEVELOPER [employer] Emily Jade DO LABORATORY Final Re sult Performing Organization Address [facility] Co de Phone Number [facility] [address] [place] [address], * CT GENERIC (06/28/2024) Anatomical Region Laterality Modality Other 06/28/2024 [facility] Scanned SCANNING Final Resu lt * OUTSIDE LAB (SCAN ORDER) (06/28/2024) Only the most recent of3 resultswithin the time period is included. 06/28/2024 [facility] Scanned SCANNING Final Resu lt * HEPATITIS C ANTIBODY (11/21/2021 7:56 AM CDT) [facility] HEPATITIS C AB NON-REACTI VE NON-REACT [place] 11/21/2021 6:32 PM CDT [facility] Comment: ANTIBODIES TO HCV NOT DETECTED. DOES NOT EXCLUDE THE POSSIBILITY OF EXPOSURE TO HCV. 11/21/2021 7:56 AM CDT us Emily Jade DO LABORATORY Final Re sult [facility] [address] [place] [address], [id number] * COLONOSCOPY GENERIC (SCAN ORDER) (10/18/2018) 10/18/2018 [facility] Scanned SCANNING Final Resu lt from Last 3 Months or Most Recently Relevant to Health Maintenance Insurance [facility] Care Teams Wrapper Stitcher Relationship Specialty Start Date End Date Emily Jade DO [address] [place], [place] [id number] PCP - General FAMILY PRACTICE 05/09/19
--- OUTSIDE RECORDS SUMMARY | 2024-08-25 09:35 | XMS_ITS | Data Portability ---
Author Organization [place] - [facility] , [facility] Address [address] [place] [address] Assessment Encounter Date Assessment Date Assessment LastModified by Organization Details LastModified Time 05/26/2024 05/26/2024 Ddx: GERD, Dyspepsia, Gastritis, Laryngeal Reflux A: Gastroesophageal reflux disease is determined to be the etiology of current symptoms. Patient without symptoms suggestive of bacterial etiology at this time. P: Provided counseling/treatme nt recommendations as noted below: Monitor for worsening of abdominal pain, burping, gas, nausea, vomiting Medications prescribed: Increase prilosec to 20 mg twice daily. Add protonix 40 mg as directed. Follow up with PCP in 2-3 weeks or sooner as discussed Drug interactions: OTC meds recommended: Anti-reflux measures discussed / prevention: LIfestyle changes: Counseled on the importance of [...] 40 mg tablet,del ayed release 2023 024 [facility] #[id number], [id number], [place], [address], 18:51:55 Patient TargetsNo targets recorded. Patient Instructions Encounter Date Encounter Id Patient Instructions Last Modified By Organization Details Last Modified Time 05/26/2024 [id number] gastroesophageal reflux disease (GERD): care instructions Not [...] enidate ER 15 mg capsule,ext ended release [id number] TAKE 1 CAPSULE BY MOUTH EVERY [...] Diagnosis/Indication Diagnosis SNOMED-CT Code Diagnosis ICD10 Code Diagnosis Note [id number] SHILOH [facility] [address] [place] [address] 05/26/2024 18:25:00 05/27/2024 00:42:22 Gastroesophageal reflux disease 999933834 K21.9 Health Concerns Section Related Observation LastModified by Organization Detai ls LastModified Time None Recorded Concern Status LastModified by Organization Details LastModified Time None Recorded Advance Directives Directive None Recorded Payers Encounter Date Sequence Insurance Name Policy Number Policy Zambrano Covered Member ID Zambrano Member ID Guarantor Name 05/26/2024 1 [facility] [id number] David Rider [id number] David Rider 05/26/2024 3 *SELF PAY* [id number] David Rider [id number] David Rider Notes Date Note Type Note [...] following state at the time of visit: [place]. The patient consents to the use of Clickable technology. Previous visits and labs reviewed, if available.Patient at time of visit located in: [place] HPI: pt reports he has been having acid reflux for the past several months; states the acid reflux causes him nausea and at times vomiting. States he takes prilosec daily with no relief. Reports hoarse voice, frequent dry cough. Onset and duration of symptoms: several months Symptoms: Heartburn:+ Gas:- Bloating:- Burping:+ Abdominal pain:- Coughing:+ Wheezing:- Shortness of breath:- Postnasal drip:- Nausea, vomiting or diarrhea:+ Past history of peptic ulcer disease or reflux: denies Halitosis:- URI symptoms:- Past history of asthma:- Past history of H.pylori- Past family history of Singh s esophagus- Recent History of NSAIDs use:- Recent use of new medications:- Hoarseness:+ Dental concerns:- Additional symptoms:- ERNESTO [address], [place], [address], [facility] - [facility] 05/26/2024 18:55:05
--- OUTSIDE RECORDS SUMMARY | 2024-08-25 09:35 | XMS_ITS ---
Author Organization [facility] Address [address] [place] [address] Care Team Providers Care Top Taper Machine Name Role Phone Boni Romero Primary Care Provider Manuelito Larson [phone] REASON FOR VISIT New Refill Request Medications Medication SIG (Take, Route, Frequency, Duration) Notes Start Date End Date Status Dexmethylphenidate HCl ER 15 MG 1 capsule in the morning Orally Once a day. for 30 days 08/05/2024 Active Social History Sex Assigned At : Social History Observation Description Sex Assigned At Male Encounters Encounter Location Date Provider Diagnosis [facility] [address] [place] [address] 08/04/2024 Boni Romero ADHD (attention deficit hyperactivity disorder), inattentive type F90.0 Assessments Encounter Date Diagnosis (ICD Code) Assessment Notes Treatment Notes Treatment Clinical Notes Section Notes 08/04/2024 ADHD (attention deficit hyperactivity disorder), inattentive type (ICD-10 - F90.0) Plan Of Treatment Medication Medication Name Sig Start Date Stop Date Notes Dexmethylphenidate HCl ER 15 MG 1 capsul e in the morning Orally Once a day. for 30 days 08/05/2024 Next Appt Details Provider Name:Boni palmer, 09/02/2024 03:40:00 PM, [address] [facility] , [place], [address], Progress Notes * David POWERSDOB:1980 (43 yo M)Acc No.[id number]:08/04/2024 Patient: David ALBARADO :1980 A ge:43 Y S ex:Male Address:[address] [place], [address] * Refills Refill Dexmethylphenidate HCl ER Capsule Extended Release 24 Hour, 15 MG, Orally, 30, 1 capsule in the morning, Once a day., 30 days, Refills=0 * true * Date: Generated for Amanda dodge/Sahara/Shivamitting on: 0 08/25/2024 09:35 AM CORRUGATED FASTENER DRIVER
--- OUTSIDE RECORDS SUMMARY | 2024-08-25 09:35 | XMS_ITS | Referral Summary ---
Author Organization [facility] Address [address] [place] [address] Care Team Providers Care Bulk Pallet Builder Name Role Phone Haris Hoffman Vicente HIDALGO Primary Care Provider + Source Comments [facility],non-owned Affiliates and Associated Physician Practices is amultiple site organization consisting of ambulatory clinics and hospital sitesin [place], [place], [place] and [place]. This disclosure is being madepursuant to the Care Everywhere program and may not contain all information available regarding this patient. Last updated 18.[facility] [employer] Allergies No known active allergies Medications * Be aware that medications may not be up to date on this document. Alwaysverify current medications with the patient. Medication Sig Dispensed Refills Start Date End Date Status Cholecalciferol (VITAMIN D PO) Active fluticasone propionate (FLONASE ALLERGY RELIEF) 50 MCG/ACT nasal sprayIndications:Al lergic Rhinitis [place] 2 sprays into each nostril once daily [...] 108 05/04/2022 9:15 AM CDT Temperature 36.2 C (97.2 F) 05/04/2022 9:15 AM CDT Respiratory Rate 18 05/04/2022 9:15 AM CDT [...] COMPREHENSIVE METABOLIC PANEL (05/04/2022 9:45 AM T) [facility] Glucose 97 70 - 105 mg/dL 05/04/2022 10:10 AM [facility] Sodium 138 136 - 145 mmol/L 05/04/2022 10:10 AM [facility] Potassium 4.1 3.5 - 5.1 mmol/L 05/04/2022 10:10 AM [facility] Chloride 106 98 - 107 mmol/L 05/04/2022 10:10 AM [facility] CO2 20(L) 23 - 31 mmol/L 05/04/2022 10:10 AM [facility] Calcium 9.6 8.4 - 10.4 mg/dL 05/04/2022 10:10 AM [facility] Anion Gap 12 8 - 18 mmol/L 05/04/2022 10:10 AM [facility] BUN 9 8.9 - 20.6 mg/dL 05/04/2022 10:10 AM [facility] Creatinine 0.88 0.72 - 1.25 mg/dL 05/04/2022 10:10 AM [facility] Alkaline Phosphatase 88 40 - 150 U/L 05/04/2022 10:10 AM [facility] ALT 46 0 - 61 U/L 05/04/2022 10:10 AM [facility] AST 25 5 - 34 U/L 05/04/2022 10:10 AM [facility] Protein Total 7.5 6.4 - 8.3 gm/dL 05/04/2022 10:10 AM [facility] Albumin 4.4 3.5 - 5.2 gm/dL 05/04/2022 10:10 AM [facility] Bilirubin Total 0.7 0.2 - 1.2 mg/dL 05/04/2022 10:10 AM [facility] eGFR by CKD-EPI >90 >=90 mL/min/1.7 3 m2 05/04/2022 10:10 AM [facility] Blood BLOOD SPECIMEN / Unknown Venipuncture / Unknown 05/04/2022 9:45 AM CDT 05/04/2022 9:49 AM CDT Disha Mojica PA-C LAB - CHEMISTRY ORDERABLES [facility] [address] [place] [address] from Last 3 Months or Most Recently Relevant to Health Maintenance Care Teams Bulk Pallet Builder Relationship Specialty Start Date End Date Haris Hoffman DO PCP - General 05/23/19
--- OUTSIDE RECORDS SUMMARY | 2024-08-25 09:35 | XMS_ITS | Patient Health Summary ---
Author Organization [facility] Address [address] [place] [address] Care Team Providers Care Architectural Sales Consultant Name Role Phone Haris Hoffman Vicente HIDALGO Primary Care Provider + Note from [facility],non-owned Affiliates and Associated Physician Practices is amultiple site organization consisting of ambulatory clinics and hospital sitesin [place], [place], [place] and [place]. This disclosure is being madepursuant [...] ALLERGY RELIEF) 50 MCG/ACT nasal spray(Started 03/07/2018) [place] 2 sprays into each nostril once [...] Performed for Screening for viral disease * OR NASAL ENDOSCOPY,DX(Performed 09/15/2019) Performed for Chronic sinusitis, unspecified location Results * TROPONIN I (05/04/2022 9:45 AM CDT) Pathologist [facility] Troponin I <0.010 <0.038 ng/mL 05/04/2022 10:16 AM CDT [facility] Blood BLOOD SPECIMEN / Unknown Venipuncture / Unknown 05/04/2022 9:45 AM CDT 05/04/2022 9:49 AM CDT Disha Mojica PA-C LAB - CHEMISTRY ORDERABLES [facility] [address] [place] [address] * (ABNORMAL) CBC W AUTO DIFFERENTIAL (05/04/2022 9:45 AM CDT) Pathologist [facility] WBC 8.2 4.4 - 10.7 x10E9/L 05/04/2022 9:56 AM CDT [facility] WBC Corrected 05/04/2022 9:56 AM CDT [facility] RBC 4.95 3.80 - 5.40 x10E12/L 05/04/2022 9:56 AM CDT [facility] Hemoglobin 15.9 12.0 - 17.6 gm/dL 05/04/2022 9:56 AM CDT [facility] Hematocrit 45.9 35.2 - 51.7 % 05/04/2022 9:56 AM CDT [facility] MCV 92.7 80.7 - 98.3 fl 05/04/2022 9:56 AM CDT [facility] MCH 32.1 26.7 - 34.0 pg 05/04/2022 9:56 AM CDT [facility] MCHC 34.6 30.8 - 35.9 gm/dL 05/04/2022 9:56 AM CDT [facility] Platelet Count 368 153 - 416 x10E9/L 05/04/2022 9:56 [facility] RDW-CV 11.7(L) 12.1 - 14.9 % 05/04/2022 9:56 AM CDT [facility] MPV 8.5(L) 9.4 - 12.9 fl 05/04/2022 9:56 AM [facility] Neutrophils % 77.7(H) 44.0 - 73.0 % 05/04/2022 9:56 AM [facility] Lymphocytes % 16.0(L) 20.0 - 43.0 % 05/04/2022 9:56 AM [facility] Monocytes % 5.9 5.0 - 13.0 % 05/04/2022 9:56 AM [facility] Eosinophils % 0.1 0.0 - 6.0 % 05/04/2022 9:56 AM [facility] Basophils % 0.2 0.0 - 2.0 % 05/04/2022 9:56 AM [facility] Immature Granulocytes 0.1 0 - 1 % 05/04/2022 9:56 AM [facility] Neutrophil Absolute 6.34 2.01 - 7.14 x10E9/L 05/04/2022 9:56 AM [facility] Lymphocytes Absolute 1.31 1.07 - 3.94 x10E9/L 05/04/2022 9:56 AM [facility] Monocytes Absolute 0.48 0.26 - 1.07 x10E9/L 05/04/2022 9:56 AM [facility] Eosinophils Absolute 0.01 0 - 0.47 x10E9/L 05/04/2022 9:56 AM [facility] Basophils Absolute 0.02 0 - 0.08 x10E9/L 05/04/2022 9:56 AM [facility] Immature Granulocytes Absolute 0.01 0.00 - 0.06 x10E9/L 05/04/2022 9:56 AM [facility] nRBC Auto 0 /100 WBC 05/04/2022 9:56 AM [facility] Blood BLOOD SPECIMEN / Unknown Venipuncture / Unknown 05/04/2022 9:45 AM CDT 05/04/2022 9:48 AM CDT Disha Mojica PA-C LAB - HEMATOLOGY ORDERABLES [facility] [address] [place] [address] * (ABNORMAL) COMPREHENSIVE METABOLIC PANEL (05/04/2022 9:45 AM CDT) Glucose 97 70 - 105 mg/dL 05/04/2022 10:10 AM CDT [facility] Sodium 138 136 - 145 mmol/L 05/04/2022 10:10 AM CDT [facility] Potassium 4.1 3.5 - 5.1 mmol/L 05/04/2022 10:10 AM CDT [facility] Chloride 106 98 - 107 mmol/L 05/04/2022 10:10 AM CDT [facility] CO2 20(L) 23 - 31 mmol/L 05/04/2022 10:10 AM [facility] Calcium 9.6 8.4 - 10.4 mg/dL 05/04/2022 10:10 AM [facility] Anion Gap 12 8 - 18 mmol/L 05/04/2022 10:10 AM CDT [facility] BUN 9 8.9 - 20.6 mg/dL 05/04/2022 10:10 AM CDT [facility] Creatinine 0.88 0.72 - 1.25 mg/dL 05/04/2022 10:10 AM [facility] Alkaline Phosphatase 88 40 - 150 U/L 05/04/2022 10:10 AM [facility] ALT 46 0 - 61 U/L 05/04/2022 10:10 AM CDT [facility] AST 25 5 - 34 U/L 05/04/2022 10:10 AM CDT [facility] Protein Total 7.5 6.4 - 8.3 gm/dL 05/04/2022 10:10 AM CDT [facility] Albumin 4.4 3.5 - 5.2 gm/dL 05/04/2022 10:10 AM CDT [facility] Bilirubin Total 0.7 0.2 - 1.2 mg/dL 05/04/2022 10:10 AM [facility] eGFR by CKD-EPI >90 >=90 mL/min/1.7 3 m2 05/04/2022 10:10 AM CDT [facility] Blood BLOOD SPECIMEN / Unknown Venipuncture / Unknown 05/04/2022 9:45 AM CDT 05/04/2022 9:49 AM CDT Disha Mojica PA-C LAB - CHEMISTRY ORDERABLES Performing Organization Address [facility] Co de Phone Number [facility] [address] [place] [address] * MAGNESIUM BLOOD (05/04/2022 9:45 AM CDT) Magnesium 2.0 1.6 - 2.6 mg/dL 05/04/2022 10:10 AM CDT [facility] Blood BLOOD SPECIMEN / Unknown Venipuncture / Unknown 05/04/2022 9:45 AM CDT 05/04/2022 9:49 AM CDT Disha Mojica PA-C LAB - CHEMISTRY ORDERABLES Performing Organization Address [facility] de Phone Number [facility] [address] [place] [address] * EKG 12-LEAD (05/04/2022 9:36 AM CDT) Ventricular Rate 107 BPM [facility] Atrial Rate 107 BPM [facility] P-R Interval 120 ms [facility] QRS Duration ms 106 ms [facility] Q-T Interval ms 348 ms [facility] QTC Calculation (Bezet) 464 ms [facility] Calculated P [place] 73 degrees [facility] Calculated R [place] 33 degrees [facility] Calculated T [place] 40 degrees [facility] Interpretation EKG Sinus tachycardia Otherwise normal ECG No previous ECGs available Confirmed by FAIZA JOEL MD ([id number]) on 05/07/2022 10:25:19 PM [facility] 05/04/2022 9:36 AM CDT 05/07/2022 10:25 PM CDT Disha Mojica PA-C ECG ORDERABLES [facility] * (ABNORMAL) SARS-COV-2 (COVID-19) AG (AMB) POCT (03/17/2021 4:52 PM CDT) SARS-CoV-2 Ag Positive(A) Negative [facility] Lot # [id number] [facility] Expiration Date 07/03/22 [facility] Instrument Serial Number [id number] [facility] COVID Internal Control Acceptable [...] first five days of onset of symptoms. False-positive SARS-CoV-2 test results are more likely to occur when disease prevalence is low (less than 1%). False-negative SARS-CoV-2 test results are more likely to occur when disease prevalence is high (greater than 10%). This test has been authorized by the Food and Drug administration (FDA)under an Emergency Use Authorization (EUA). This test is only authorized [...] assay are available upon request. Jesus Dominguez HEAT TREAT INSPECTOR-ROUTE MANAGER LAB - POINT OF CARE ORDERABLES [facility] [address] [phone] * OR NASAL ENDOSCOPY,DX (09/15/2019 10:40 AM TECHNICAL SUPPORT CONSULTANT) Narrative Lydia Laws, BRIGIDA-ROUTE MANAGER - 09/15/2019 10:40 AM TECHNICAL SUPPORT CONSULTANT Lydia Lasw, MARGO 09/15/2019 10:41 AM Procedure Note Endoscopy Type: Nasal Endoscopy without debridement Anesthesia: Lidocaine 2% and Bradly-Synephrine 1/2% Procedure Details: After topical anesthesia and decongestion, the patient was placed in the sitting position. The zero degree telescope was passed along the [...] for the entirety of the procedure. Lydia Laws APRN-ROUTE MANAGER PROCEDURE/MINOR SURGICAL ORDERABLES Care Teams Architectural Sales Consultant Relationship Specialty Start Date End Date Haris Hoffman DO PCP - General 05/23/19
--- OUTSIDE RECORDS SUMMARY | 2024-08-25 09:36 | XMS_ITS ---
Author Organization [facility] Address [address] [place] [address] Care Team Providers Care Biology Teacher Name Role Phone Boni Romero Primary Care Provider [phone] Manuelito Larson [phone] REASON FOR VISIT r/s from 07/28 Social History Sex Assigned At : Social History Observation Description Sex Assigned At Male Encounters Encounter Location Date Provider Diagnosis [address] [address] 08/12/2024 Boni Romero Plan Of Treatment Next Appt Details Provider Name:Boni Nuno , 09/02/2024 03:40:00 PM, [address] [facility], [place], [address], Progress Notes * David POWERSDOB:1980 (43 yo M)Acc No.[id number]:08/12/2024 UNLOCKED PROGRESS NOTE Patient: David ALBARADO Provider: Sukhjinder Romero, DNP, PMHNP-BC :1980 A ge:43 Y S ex:Male Date:08/12/2024 Address:[address] [place], [place] Subjective: * Chief Complaints: * 1 . R/s from 07/28. * Medical History: Objective: * Vitals: Assessment: Plan: * Treatment: * * Electronic signature of Nicci Romero , MECHANICAL ASSEMBLY TECHNICIAN, [phone] on 08/25/2024 at 09:36 AM MONORAIL OPERATOR Sign off status: Pending * Provider: Sukhjinder Romero DNP, PMHNP- Date: 0 08/12/2024 Generated for Amanda dodge/Sahara/Katherine on: 0 08/25/2024 09:36 AM MONORAIL OPERATOR
--- OUTSIDE RECORDS SUMMARY | 2024-08-25 09:36 | XMS_ITS ---
Author Organization [facility] Address [address] [place] [address] Care Team Providers Care Police Captain Precinct Name Role Phone Boni Romero Primary Care Provider Manuelito Larson [phone] REASON FOR VISIT New Refill Request Medications Medication SIG (Take, Route, Frequency, Duration) Notes Start Date End Date Status Propranolol HCl ER 120 MG 1 capsule at bedtime Orally Once a day for 14 days increased from 60 mg 09/27/2023 Active Social History Sex Assigned At : Social History Observation Description Sex Assigned At Male Encounters Encounter Location Date Provider Diagnosis [facility] [address] [facility] [place] [address] 08/21/2024 Boni Romero ROSY (generalized anxiety disorder) F41.1 Assessments Encounter Date Diagnosis (ICD Code) Assessment Notes Treatment Notes Treatment Clinical Notes Section Notes 08/21/2024 ROSY (generalized anxiety disorder) (ICD-10 - F41.1) Plan Of Treatment Medication Medication Name Sig Start Date Stop Date Notes Propranolol HCl ER 120 MG 1 capsule at bedtime Orally Once a day for 14 days 09/27/2023 increased from 60 mg Next Appt Details Provider Name:Boni Nuno , 09/02/2024 03:40:00 PM, [address] [facility] , [place], [address], Progress Notes * David POWERSDOB:1980 (43 yo M)Acc No.[id number]:08/21/2024 Patient: David ALBARADO :1980 A ge:43 Y S ex:Male Address:[facility] [place], [address] * Refills Refill Propranolol HCl ER Capsule Extended Release 24 Hour, 120 MG, Orally, 14 Capsule, 1 capsule at bedtime, Once a day, 14 days, Refills=0 * true * Date: Generated for Amanda dodge/Sahara/Shivamitting on: 0 08/25/2024 09:35 AM ACCESS LEAD
--- OUTSIDE RECORDS SUMMARY | 2024-08-25 09:36 | XMS_ITS | Clinical Summary ---
Author Organization [facility] Address [address] [place] [address] Care Team Providers Care Bolting Machine Operator Name Role Phone Haris Hoffman Vicente HIDALGO Primary Care Provider + Source Comments [facility],non-owned Affiliates and Associated Physician Practices is amultiple site organization consisting of ambulatory clinics and hospital sitesin [place], [place], [place] and [place]. This disclosure is being madepursuant to the Care Everywhere program and may not contain all information available regarding this patient. Last updated 18.[facility] Allergies No known active allergies Medications * Be aware that medications may not be up to date on this document. Alwaysverify current medications with the patient. Medication Sig Dispensed Refills Start Date End Date Status Cholecalciferol (VITAMIN D PO) Active fluticasone propionate (FLONASE ALLERGY RELIEF) 50 MCG/ACT nasal sprayIndications:Al lergic Rhinitis [place] 2 sprays into each nostril once daily [...] of 3 - 19+ 3-dose series) 1997 COVID-19 VACCINE (3 - 2023-2 5 season) 2024 10/31/2020, 10/10/2020 INFLUENZA VACCINE (#1) 2024 DEPRESSION SCREENING 07/16/2024 SCREENING FOR DIABETES 05/04/2025 05/04/2022 ZOSTER VACCINE (1 of 2) 2028 HIB VACCINE Aged Out No longer eligi ble based on patient's age to complete this topic HPV VACCINE Aged Out No longer eligi ble based on patient's age to complete this topic MENINGOCOCCAL (Group B) VACCINE Aged Out No longer eligible b ased [...] COMPREHENSIVE METABOLIC PANEL (05/04/2022 9:45 AM CDT) [facility] Glucose 97 70 - 105 mg/dL 05/04/2022 10:10 AM CDT [facility] Sodium 138 136 - 145 mmol/L 05/04/2022 10:10 AM CDT [facility] Potassium 4.1 3.5 - 5.1 mmol/L 05/04/2022 10:10 AM CDT [facility] Chloride 106 98 - 107 mmol/L 05/04/2022 10:10 AM CDT [facility] CO2 20(L) 23 - 31 mmol/L 05/04/2022 10:10 AM CDT [facility] Calcium 9.6 8.4 - 10.4 mg/dL 05/04/2022 10:10 AM CDT [facility] Anion Gap 12 8 - 18 mmol/L 05/04/2022 10:10 AM CDT [facility] BUN 9 8.9 - 20.6 mg/dL 05/04/2022 10:10 AM CDT [facility] Creatinine 0.88 0.72 - 1.25 mg/dL 05/04/2022 10:10 AM CDT [facility] Alkaline Phosphatase 88 40 - 150 U/L 05/04/2022 10:10 AM CDT [facility] ALT 46 0 - 61 U/L 05/04/2022 10:10 AM CDT [facility] AST 25 5 - 34 U/L 05/04/2022 10:10 AM CDT [facility] Protein Total 7.5 6.4 - 8.3 gm/dL 05/04/2022 10:10 AM CDT [facility] Albumin 4.4 3.5 - 5.2 gm/dL 05/04/2022 10:10 AM T [facility] Bilirubin Total 0.7 0.2 - 1.2 mg/dL 05/04/2022 10:10 AM T [facility] eGFR by CKD-EPI >90 >=90 mL/min/1.7 3 m2 05/04/2022 10:10 AM T [facility] Blood BLOOD SPECIMEN / Unknown Venipuncture / Unknown 05/04/2022 9:45 AM CDT 05/04/2022 9:49 AM CDT Disha Mojica PA-C LAB - CHEMISTRY ORDERABLES [facility] [address] [place] [address] from Last 3 Months or Most Recently Relevant to Health Maintenance Care Teams Bolting Machine Operator Relationship Specialty Start Date End Date Haris Hoffman DO PCP - General 05/23/19
[2024-08-25 10:43] LABS: Basophils Percent Auto 0.3 % (0.2-1.2); Eosinophils Absolute Auto 0.2 K/mm3 (0-0.3); Eosinophils Percent Auto 1.4 % (0-4.4); Hemoglobin 14.3 g/dL (14.0-18.0); Immature Granulocyte Absolute 0.04 K/mm3 (0.00-0.031); Immature Granulocyte Percent A 0.3 % (0-0.5); Lymphocytes Percent Auto 17.6 % (18.3-44.2); Mean Corpuscular Hemoglobin 31.8 pg (26-34); Mean Corpuscular Volume 93.5 fl (80-100); Mean Platelet Volume 8.7 fl (7.4-10.4); Monocytes Absolute Auto 0.8 K/mm3 (0.1-0.6); Monocytes Percent Auto 5.7 % (2.6-8.5); Neutrophils Absolute Auto 10.7 K/mm3 (1.3-6.7); Neutrophils Percent Auto 74.7 % (45.5-73.1); Platelet Count Result 337 k/mm3 (150-375); Red Blood Count 4.49 M/mm3 (4.6-6.20); Red Cell Distribution Width 13.1 % (11.5-14.5); White Blood Count 14.2 K/mm3 (4.5-10.0)
--- NOTE | 2024-08-25 10:52 | ED_ITS ---
HPI - GI Bleed General Chief complaint: GI Bleed <Laurence Garcia PA-C - Last Filed: 08/27/24 17:10> Stated complaint: vomiting blood <Laurence Garcia PA-C - Last Filed: 08/27/24 17:10> Time Seen by Provider: 08/25/24 10:34 <Laurence Garcia PA-C - Last Filed: 08/27/24 17:10> Source: patient <Laurence Garcia PA-C - Last Filed: 08/27/24 17:10> Mode of arrival: ambulatory <MOLLY Mays Last Filed: 08/27/24 17:10> Limitations: no limitations <Laurence Garcia PA-C - Last Filed: 08/27/24 17:10> History of Present Illness HPI Narrative: This is a 43-year-old male that presents to the emergency department for hematemesis. Reports he has had coffee-ground emesis over the last couple of days. He has been experiencing a lot of nausea and vomiting over the last several months. He has been referred to GI for this. He is currently taking a PPI twice a day. Also reports dark stools. He also reports he has had he hemoptysis and recently had pneumonia. Reports some upper abdominal discomfort and nausea. Denies fevers. <Laurence Garcia PA-C - Last Filed: 08/27/24 17:10> Related Data Home medications: Home Medications ?Medication ?Instructions ?Recorded ?Confirmed ?Last Taken ?Type bupropion HCl 300 mg 24 hr tablet, 300 mg PO DAILY 08/25/24 08/25/24 08/23/24 History extended release cariprazine 3 mg capsule (Vraylar) 3 mg PO DAILY 08/25/24 08/25/24 08/23/24 History dexmethylphenidate 15 mg 15 mg PO DAILY 08/25/24 08/25/24 08/23/24 History capsule,extended release [id number] eszopiclone 1 mg tablet 1 mg PO HS 08/25/24 08/25/24 08/23/24 History lithium carbonate 450 mg 450 mg PO HS 08/25/24 08/25/24 08/23/24 History tablet,extended release omeprazole 40 mg capsule,delayed 40 mg PO BID 08/25/24 08/25/24 08/23/24 History release propranolol 120 mg capsule,24 120 mg PO Q24H 08/25/24 08/25/24 08/23/24 History hr,extended release quetiapine 50 mg tablet 50 mg PO HS 08/25/24 08/25/24 08/23/24 History sucralfate 1 gram tablet 1 g PO TIDWM 08/25/24 08/25/24 08/23/24 History venlafaxine 75 mg capsule,extended 75 mg PO DAILY 08/25/24 08/25/24 08/23/24 History release 24 hr <Laurence Garcia PA-C - Last Filed: 08/27/24 17:10> Allergies/Adverse reactions: Allergies Allergy/AdvReac Type Severity Reaction Status Date / Time steriod AdvReac Intermediate Agitated Uncoded 08/26/24 10:03 <Laurence Garcia PA-C - Last Filed: 08/27/24 17:10> Review of Systems 2 Review of Systems: CONSTITUTIONAL: Denies fever CARDIOVASCULAR: Denies chest pain RESPIRATORY: Report cough. Denies dyspnea. GASTROINTESTINAL: Reports abdominal pain, nausea, vomiting <Laurence Garcia PA-C - Last Filed: 08/27/24 17:10> All systems reviewed & are unremarkable except as noted in HPI and below < Laurence Garcia PA-C - Last Filed: 08/27/24 17:10> [facility] Past Medical History Medical History: Medical History (Updated 08/27/24 @ 17:07 by Laurence Garcia PA-C) Faisal lesion, acute GERD (gastroesophageal reflux disease) Leukocytosis Coffee ground emesis Anxiety Hepatic steatosis on CT scan in 08/2024 Hiatal hernia moderate-sized sliding hiatal hernia Bipolar disorder <Laurence Garcia PA-C - Last Filed: 08/27/24 17:10> Surgical History Surgical History: Surgical History (Updated 08/25/24 @ 20:01 by Ana Maria Guerra PA-C) History of lumbar fusion <Laurence Garcia PA-C - Last Filed: 08/27/24 17:10> Social History Social History: Social History (Updated 08/25/24 @ 20:05 by Ana Maria Guerra PA-C) Social History: Surrogate medical decision maker: Jacque Rider, spouse. Code status: Full code. Smoking status: Never smoker Alcohol intake: never Substance use: never Do You Feel Safe in your Home?: Yes Lack of Transportation: YES Lack of Food: Never True Current Housing: I Have Housing Concerned About Future Housing: No Difficulty Paying Gas/Electric Bills: No Difficulty Paying for Meds: No Currently Unemployed: No Education: Trade/Vocational Certificate Difficulty w/ Childcare or Family Care: No Additional living arrangements comments: Lives with and 4 children. Additional occupation/education comments: [employer]. Spiritual care concerns: No <Laurence Garcia PA-C - Last Filed: 08/27/24 17:10> Exam 2 Narrative: GENERAL: Well-appearing, well-nourished, and in no acute distress. HEAD: Normocephalic, atraumatic. EYES: EOMI. ENT: Nares clear, no rhinorrhea or epistaxis. Mucous membranes moist. Oropharynx without tonsillar hypertrophy exudate or other lesions. CHEST: Clear to auscultation. No respiratory distress. No wheezes rales or rhonchi HEART: Regular rate and rhythm. No murmur heard. Normal peripheral pulses. ABDOMEN: Soft, nontender, nondistended, normal active bowel sounds. EXTREMITIES: Normal range of motion. No edema. SKIN: Warm, dry, no rash. NEURO: No focal deficits. Alert and oriented x3. PSYCH: Normal mood and affect <Laurence Garcia PA-C - Last Filed: 08/27/24 17:10> Course Course Emergency Course: Patient updated on his workup and recommendation for admission <Laurence Garcia PA-C - Last Filed: 08/27/24 17:10> CREAM RIPENER/PA Physician Supervision For this patient encounter, I reviewed the CREAM RIPENER or PA documentation, treatment plan, and medical decision making; and I had [id number] time with this patient. <Brendan Hirsch MD - Last Filed: 08/25/24 19:37> Consultations Consultation #1: Spoke with hospitalist about patient and workup who accepts admission < Laurence Garcia PA-C - Last Filed: 08/27/24 17:10> Consultation #2: Spoke with GI who will consult <Laurence Garcia PA-C - Last Filed: 08/27/24 17:10> Vital Signs Vital signs: Vital Signs Temperature 98 F 08/25/24 09:25 Pulse Rate 96 08/25/24 09:25 Respiratory Rate 15 08/25/24 09:25 Blood Pressure 154/93 H 08/25/24 09:25 Pulse Oximetry 98 08/25/24 09:25 Oxygen Delivery Room Air 08/25/24 09:25 Temperature 97.8 F 08/27/24 03:44 Pulse Rate 63 08/27/24 03:44 Respiratory Rate 20 08/27/24 03:44 Blood Pressure 106/67 08/27/24 03:44 Pulse Oximetry 94 08/27/24 03:44 Oxygen Delivery Room Air 08/27/24 09:08 Oxygen Flow Rate 2 08/26/24 10:50 <Laurence Garcia PA-C - Last Filed: 08/27/24 17:10> Vital Signs Temperature 98 F 08/25/24 09:25 Pulse Rate 96 08/25/24 09:25 Respiratory Rate 15 08/25/24 09:25 Blood Pressure 154/93 H 08/25/24 09:25 Pulse Oximetry 98 08/25/24 09:25 Oxygen Delivery Room Air 08/25/24 09:25 Temperature 97.8 F 08/27/24 03:44 Pulse Rate 63 08/27/24 03:44 Respiratory Rate 20 08/27/24 03:44 Blood Pressure 106/67 08/27/24 03:44 Pulse Oximetry 94 08/27/24 03:44 Oxygen Delivery Room Air 08/27/24 09:08 Oxygen Flow Rate 2 08/26/24 10:50 <Brendan Hirsch MD - Last Filed: 08/25/24 19:37> MDM - GI Bleed MDM Narrative Medical decision making narrative: Patient presents to the emergency department with multiple complaints. Reporting cough, hematemesis as well as hemoptysis. His vitals are stable. He is Hemoccult positive. Hemoglobin is normal. CBC does show leukocytosis. Metabolic panel with some evidence of dehydration. D-dimer elevated, CTA of the chest PE with abdomen and pelvis obtained. This shows likely multifocal pneumonia. Moderate size hiatal hernia. Hepatic steatosis. No PE. Patient updated on his workup and recommendation for admission. Spoke with hospitalist about patient and workup accepts admission. Patient started on IV antibiotics. Spoke with GI who will consult <Laurence Garcia PA-C - Last Filed: 08/27/24 17:10> Differential Diagnosis Differential diagnosis: Likely hemorrhoids, esophageal varices, gastritis, Paris-Acevedo syndrome, Upper gastrointestinal hemorrhage, Lower gastrointestinal hemorrhage, hematochezia, melena, anal fissure and other (pneumonia, PE) <Laurence Garcia PA-C - Last Filed: 08/27/24 17:10> Lab Data Attestation: I reviewed the patient's lab results. <Laurence Garcia PA-C - Last Filed: 08/27/24 17:10> Result diagrams: 08/26/24 05:22 08/26/24 05:22 <Laurence Garcia PA-C - Last Filed: 08/27/24 17:10> Labs: Lab Results 08/25/24 08/25/24 08/25/24 Range/Units 10:34 10:35 12:20 WBC 14.2 H (4.5-10.0) K/mm3 RBC 4.49 L (4.6-6.20) M/mm3 Hgb 14.3 (14.0-18.0) g/dL Hct 42.0 (42.0-52.0) % MCV 93.5 (80-100) fl MCH 31.8 (26-34) pg MCHC 34.0 (32-36) g/dl RDW 13.1 (11.5-14.5) % Plt Count 337 (150-375) k/mm3 MPV 8.7 (7.4-10.4) fl Immature Gran % (Auto) 0.3 (0-0.5) % Neut % (Auto) 74.7 H (45.5-73.1) % Lymph % (Auto) 17.6 L (18.3-44.2) % [place] % (Auto) 5.7 (2.6-8.5) % Eos % (Auto) 1.4 (0-4.4) % Baso % (Auto) 0.3 (0.2-1.2) % Lymph # (Auto) 2.50 (0.9-3.2) K/mm3 [place] # (Auto) 0.8 H (0.1-0.6) K/mm3 Eos # (Auto) 0.2 (0-0.3) K/mm3 Baso # (Auto) 0.0 (0.0-0.1) K/mm3 Abs Immat Gran (auto) 0.04 H (0.00-0.031) K/mm3 Absolute Neuts (auto) 10.7 H (1.3-6.7) K/mm3 Absolute Nucleated RBC 0.000 (0.0-0.012) K/mm3 Nucleated RBC % 0.0 (0.0-0.2) % PT 13.1 (11.1-14.7) Seconds INR 1.0 APTT 26.8 (22.3-36.8) Seconds D-Dimer 0.55 H (<0.48) ug/mL Sodium 141 (137-145) mmol/L Potassium 3.8 (3.4-5.0) mmol/L Chloride 104 (98-107) mmol/L Carbon Dioxide 23 (22-30) mmol/L Anion Gap 14 H (4-12) mmol/L BUN 6 L (9-20) mg/dL Creatinine 0.64 L (0.7-1.3) mg/dL Estim Creat Clear Calc 176 ml/min Estimated GFR > 60 (59 - ) Glucose 153 H (65-110) mg/dL Calcium 9.1 (8.4-10.2) mg/dL Total Bilirubin 1.0 (0.2-1.3) mg/dL AST 37 (17-59) U/L ALT 80 H (6-50) U/L Alkaline Phosphatase 95 (38-126) U/L Total Protein 8.0 (6.3-8.2) g/dL Albumin 4.1 (3.5-5.1) g/dL Influenza A (RT-PCR) Negative (Negative) Influenza B (RT-PCR) Negative (Negative) RSV (RT-PCR) Negative (Negative) SARS-CoV-2 RNA (RT-PCR) Negative (Negative) Blood Type O Negative Antibody Screen Negative <Laurence Garcia PA-C - Last Filed: 08/27/24 17:10> Lab Results 08/25/24 08/25/24 08/25/24 Range/Units 10:34 10:35 12:20 WBC 14.2 H (4.5-10.0) K/mm3 RBC 4.49 L (4.6-6.20) M/mm3 Hgb 14.3 (14.0-18.0) g/dL Hct 42.0 (42.0-52.0) % MCV 93.5 (80-100) fl MCH 31.8 (26-34) pg MCHC 34.0 (32-36) g/dl RDW 13.1 (11.5-14.5) % Plt Count 337 (150-375) k/mm3 MPV 8.7 (7.4-10.4) fl Immature Gran % (Auto) 0.3 (0-0.5) % Neut % (Auto) 74.7 H (45.5-73.1) % Lymph % (Auto) 17.6 L (18.3-44.2) % [place] % (Auto) 5.7 (2.6-8.5) % Eos % (Auto) 1.4 (0-4.4) % Baso % (Auto) 0.3 (0.2-1.2) % Lymph # (Auto) 2.50 (0.9-3.2) K/mm3 [place] # (Auto) 0.8 H (0.1-0.6) K/mm3 Eos # (Auto) 0.2 (0-0.3) K/mm3 Baso # (Auto) 0.0 (0.0-0.1) K/mm3 Abs Immat Gran (auto) 0.04 H (0.00-0.031) K/mm3 Absolute Neuts (auto) 10.7 H (1.3-6.7) K/mm3 Absolute Nucleated RBC 0.000 (0.0-0.012) K/mm3 Nucleated RBC % 0.0 (0.0-0.2) % PT 13.1 (11.1-14.7) Seconds INR 1.0 APTT 26.8 (22.3-36.8) Seconds D-Dimer 0.55 H (<0.48) ug/mL Sodium 141 (137-145) mmol/L Potassium 3.8 (3.4-5.0) mmol/L Chloride 104 (98-107) mmol/L Carbon Dioxide 23 (22-30) mmol/L Anion Gap 14 H (4-12) mmol/L BUN 6 L (9-20) mg/dL Creatinine 0.64 L (0.7-1.3) mg/dL Estim Creat Clear Calc 176 ml/min Estimated GFR > 60 (59 - ) Glucose 153 H (65-110) mg/dL Calcium 9.1 (8.4-10.2) mg/dL Total Bilirubin 1.0 (0.2-1.3) mg/dL AST 37 (17-59) U/L ALT 80 H (6-50) U/L Alkaline Phosphatase 95 (38-126) U/L Total Protein 8.0 (6.3-8.2) g/dL Albumin 4.1 (3.5-5.1) g/dL Influenza A (RT-PCR) Negative (Negative) Influenza B (RT-PCR) Negative (Negative) RSV (RT-PCR) Negative (Negative) SARS-CoV-2 RNA (RT-PCR) Negative (Negative) Blood Type O Negative Antibody Screen Negative <Brendan Hirsch MD - Last Filed: 08/25/24 19:37> Imaging Data Radiologist's impression: ITS Impressions Chest/Abdomen/Pelvis CTA 08/25/24 11:48 IMPRESSION: 1. Small lung volumes with diffuse lung disease, consistent with atypical pneumonia versus mild pulmonary edema versus atelectasis. 2. Moderate-sized sliding hiatal hernia. 3. Diffuse hepatic steatosis. 4. No pulmonary embolus. <Laurence Garcia PA-C - Last Filed: 08/27/24 17:10> Critical Care Time Critical Care Time Critical Care Time: No <Laurence Garcia PA-C - Last Filed: 08/27/24 17:10> Discharge Plan Discharge Clinical Impression: Pneumonia Qualifiers: Pneumonia type: due to unspecified organism Laterality: bilateral Lung location: unspecified part of lung Qualified Code(s): J18.9 - Pneumonia, unspecified organism Hematemesis Qualifiers: Nausea presence: with nausea Qualified Code(s): K92.0 - Hematemesis <Laurence Garcia PA-C - Last Filed: 08/27/24 17:10> Patient Disposition: Still a Patient <Laurence Garcia PA-C - Last Filed: 08/27/24 17:10> Condition: Stable <Laurence Garcia PA-C - Last Filed: 08/27/24 17:10>
[2024-08-25 10:53] LABS: Potassium 3.8 mmol/L (3.4-5.0); Prothrombin Time 13.1 Seconds (11.1-14.7)
[2024-08-25 10:54] LABS: Partial Thromboplastin Time 26.8 Seconds (22.3-36.8)
[2024-08-25 11:14] LABS: Alanine Aminotransferase 80 U/L (6-50); Albumin Level 4.1 g/dL (3.5-5.1); Alkaline Phosphatase 95 U/L (38-126); Anion Gap 14 mmol/L (4-12); Aspartate Amino Transferase 37 U/L (17-59); Blood Urea Nitrogen 6 mg/dL (9-20); Calcium 9.1 mg/dL (8.4-10.2); Carbon Dioxide 23 mmol/L (22-30); Chloride 104 mmol/L (98-107); Estimated CRCL calculation 176 ml/min; Estimated Glomerular Filt Rate > 60; Glucose 153 mg/dL (65-110); Sodium 141 mmol/L (137-145)
[2024-08-25] MEDS: PANTOPRAZOLE SODIUM IV 40 MG VIAL 80 MG IV PUSH (11:17)
[2024-08-25] MEDS: ONDANSETRON INJ 4 MG/2 ML VIAL IV PUSH (11:17)
[2024-08-25 11:26] LABS: D Dimer 0.55 ug/mL (<0.48)
--- OUTSIDE RECORDS SUMMARY | 2024-08-25 11:45 | XMS_ITS | Patient Health Summary ---
Author Organization [facility] Address [address] [place] [address] Care Team Providers Care Insurance Underwriting Assistant Name Role Phone Haris Hoffman Vicente HIDALGO Primary Care Provider + Note from [facility],non-owned Affiliates and Associated Physician Practices is amultiple site organization consisting of ambulatory clinics and hospital sitesin [place], [place], [place] and [place]. This disclosure is being madepursuant to the Care Everywhere program and may not contain all information available regarding this patient. Last updated 18.[facility] Allergies No known active allergies Medications * Be aware that medications may not be up to date on this document. Alwaysverify current medications with the patient. * Cholecalciferol (VITAMIN D PO) * fluticasone propionate (FLONASE ALLERGY RELIEF) 50 MCG/ACT nasal spray(Started 03/07/2018) [place] 2 sprays into each nostril once daily [...] Performed for Screening for viral disease * ME NASAL ENDOSCOPY,DX(Performed 09/15/2019) Performed for Chronic sinusitis, unspecified location Results * TROPONIN I (05/04/2022 9:45 AM CDT) Pathologist [facility] Troponin I <0.010 <0.038 ng/mL 05/04/2022 10:16 AM CDT [facility] Blood BLOOD SPECIMEN / Unknown Venipuncture / Unknown 05/04/2022 9:45 AM CDT 05/04/2022 9:49 AM CDT Disha Mojica PA-C LAB - CHEMISTRY ORDERABLES [facility] [address] [place] [address] * (ABNORMAL) CBC W AUTO DIFFERENTIAL (05/04/2022 9:45 AM CDT) Pathologist [facility] WBC 8.2 4.4 - 10.7 x10E9/L 05/04/2022 9:56 AM CDT [facility] WBC Corrected 05/04/2022 9:56 AM CDT [facility] RBC 4.95 3.80 - 5.40 x10E12/L 05/04/2022 9:56 AM CDT [facility] Hemoglobin 15.9 12.0 - 17.6 gm/dL 05/04/2022 9:56 AM CDT [facility] Hematocrit 45.9 35.2 - 51.7 % 05/04/2022 9:56 AM CDT [facility] MCV 92.7 80.7 - 98.3 fl 05/04/2022 9:56 AM CDT [facility] MCH 32.1 26.7 - 34.0 pg 05/04/2022 9:56 AM CDT [facility] MCHC 34.6 30.8 - 35.9 gm/dL 05/04/2022 9:56 AM CDT [facility] Platelet Count 368 153 - 416 x10E9/L 05/04[facility]2022 9[facility] RDW-CV 11.7(L) 12.1 - 14.9 % 05/04/2022 9:56 AM CDT [facility] MPV 8.5(L) 9.4 - 12.9 fl 05/04/2022 9:56 [facility] Neutrophils % 77.7(H) 44.0 - 73.0 % 05/04/2022 9:56 AM [facility] Lymphocytes % 16.0(L) 20.0 - 43.0 % 05/04/2022 9:56 AM [facility] Monocytes % 5.9 5.0 - 13.0 % 05/04/2022 9:56 AM [facility] Eosinophils % 0.1 0.0 - 6.0 % 05/04/2022 9:56 AM [facility] Basophils % 0.2 0.0 - 2.0 % 05/04/2022 9:56 AM [facility] Immature Granulocytes 0.1 0 - 1 % 05/04/2022 9:56 AM [facility] Neutrophil Absolute 6.34 2.01 - 7.14 x10E9/L 05/04/2022 9:56 AM [facility] Lymphocytes Absolute 1.31 1.07 - 3.94 x10E9/L 05/04/2022 9:56 AM [facility] Monocytes Absolute 0.48 0.26 - 1.07 x10E9/L 05/04/2022 9:56 AM [facility] Eosinophils Absolute 0.01 0 - 0.47 x10E9/L 05/04/2022 9:56 AM [facility] Basophils Absolute 0.02 0 - 0.08 x10E9/L 05/04/2022 9:56 AM [facility] Immature Granulocytes Absolute 0.01 0.00 - 0.06 x10E9/L 05/04/2022 9:56 AM [facility] nRBC Auto 0 /100 WBC 05/04/2022 9:56 AM [facility] Blood BLOOD SPECIMEN / Unknown Venipuncture / Unknown 05/04/2022 9:45 AM CDT 05/04/2022 9:48 AM CDT Disha Mojica PA-C LAB - HEMATOLOGY ORDERABLES [facility] [address] [place] [address] * (ABNORMAL) COMPREHENSIVE METABOLIC PANEL (05/04/2022 9:45 AM CDT) Glucose 97 70 - 105 mg/dL 05/04/2022 10:10 AM CDT [facility] Sodium 138 136 - 145 mmol/L 05/04/2022 10:10 AM CDT [facility] Potassium 4.1 3.5 - 5.1 mmol/L 05/04/2022 10:10 AM CDT [facility] Chloride 106 98 - 107 mmol/L 05/04/2022 10:10 AM CDT [facility] CO2 20(L) 23 - 31 mmol/L 05/04/2022 10:10 AM [facility] Calcium 9.6 8.4 - 10.4 mg/dL 05/04/2022 10:10 AM [facility] Anion Gap 12 8 - 18 mmol/L 05/04/2022 10:10 AM CDT [facility] BUN 9 8.9 - 20.6 mg/dL 05/04/2022 10:10 AM CDT [facility] Creatinine 0.88 0.72 - 1.25 mg/dL 05/04/2022 10:10 AM [facility] Alkaline Phosphatase 88 40 - 150 U/L 05/04/2022 10:10 AM [facility] ALT 46 0 - 61 U/L 05/04/2022 10:10 AM CDT [facility] AST 25 5 - 34 U/L 05/04/2022 10:10 AM CDT [facility] Protein Total 7.5 6.4 - 8.3 gm/dL 05/04/2022 10:10 AM CDT [facility] Albumin 4.4 3.5 - 5.2 gm/dL 05/04/2022 10:10 AM CDT [facility] Bilirubin Total 0.7 0.2 - 1.2 mg/dL 05/04/2022 10:10 AM [facility] eGFR by CKD-EPI >90 >=90 mL/min/1.7 3 m2 05/04/2022 10:10 AM CDT [facility] Blood BLOOD SPECIMEN / Unknown Venipuncture / Unknown 05/04/2022 9:45 AM CDT 05/04/2022 9:49 AM CDT Disha Mojica PA-C LAB - CHEMISTRY ORDERABLES Performing Organization Address [facility] Co de Phone Number [facility] [address] [place] [address] * MAGNESIUM BLOOD (05/04/2022 9:45 AM CDT) Magnesium 2.0 1.6 - 2.6 mg/dL 05/04/2022 10:10 AM CDT [facility] Blood BLOOD SPECIMEN / Unknown Venipuncture / Unknown 05/04/2022 9:45 AM CDT 05/04/2022 9:49 AM CDT Disha Mojica PA-C LAB - CHEMISTRY ORDERABLES Performing Organization Address [facility] de Phone Number [facility] [address] [place] [address] * EKG 12-LEAD (05/04/2022 9:36 AM CDT) Ventricular Rate 107 BPM [facility] Atrial Rate 107 BPM [facility] P-R Interval 120 ms [facility] QRS Duration ms 106 ms [facility] Q-T Interval ms 348 ms [facility] QTC Calculation (Bezet) 464 ms [facility] Calculated P [place] 73 degrees [facility] Calculated R [place] 33 degrees [facility] Calculated T [place] 40 degrees [facility] Interpretation EKG Sinus tachycardia Otherwise normal ECG No previous ECGs available Confirmed by FAIZA JOEL MD ([id number]) on 05/07/2022 10:25:19 PM [facility] 05/04/2022 9:36 AM CDT 05/07/2022 10:25 PM CDT Disha Mojica PA-C ECG ORDERABLES [facility] * (ABNORMAL) SARS-COV-2 (COVID-19) AG (AMB) POCT (03/17/2021 4:52 PM CDT) SARS-CoV-2 Ag Positive(A) Negative [facility] Lot # [id number] [facility] Expiration Date 07/03/22 [facility] Instrument Serial Number [id number] [facility] COVID Internal Control Acceptable [...] assay are available upon request. Jesus Dominguez CONTACT CLERK-PHOTO OPTICS TECHNICIAN LAB - POINT OF CARE ORDERABLES [facility] [address] [phone] * [facility] ENDOS[facility],DX (09/15/2019 10:40 AM SALES ASSISTANT [employer]TER[employer]MENT [employer]IA) Narrative Lydia Laws, BRIGIDA-PHOTO OPTICS TECHNICIAN - 09/15/2019 10:40 AM SALES ASSISTANT [employer]TERTAINMENT AND MEDIA Lydia Laws, MARGO 09/15/2019 10:41 AM Procedure Note Endoscopy [...] the entirety of the procedure. Lydia Laws APRN-PHOTO OPTICS TECHNICIAN PROCEDURE/MINOR SURGICAL ORDERABLES Care Teams Insurance Underwriting Assistant Relationship Specialty Start Date End Date Haris Hoffman DO PCP - General 05/23/19
--- OUTSIDE RECORDS SUMMARY | 2024-08-25 11:45 | XMS_ITS | Referral Summary ---
Author Organization [facility] Address [address] [place] [address] Care Team Providers Care Welding Tester Name Role Phone Haris Hoffman Vicente HIDALGO Primary Care Provider + Source Comments [facility],non-owned Affiliates and Associated Physician Practices is amultiple site organization consisting of ambulatory clinics and hospital sitesin [place], [place], [place] and [place]. This disclosure is being madepursuant to the Care Everywhere program and may not contain all information available regarding this patient. Last updated 18.[facility] [employer] Allergies No known active allergies Medications * Be aware that medications may not be up to date on this document. Alwaysverify current medications with the patient. Medication Sig Dispensed Refills Start Date End Date Status Cholecalciferol (VITAMIN D PO) Active fluticasone propionate (FLONASE ALLERGY RELIEF) 50 MCG/ACT nasal sprayIndications:Al lergic Rhinitis [place] 2 sprays into each [...] COMPREHENSIVE METABOLIC PANEL (05/04/2022 9:45 AM T) [facility] Glucose 97 70 - 105 mg/dL 05/04/2022 10:10 AM [facility] Sodium 138 136 - 145 mmol/L 05/04/2022 10:10 AM [facility] Potassium 4.1 3.5 - 5.1 mmol/L 05/04/2022 10:10 AM [facility] Chloride 106 98 - 107 mmol/L 05/04/2022 10:10 AM [facility] CO2 20(L) 23 - 31 mmol/L 05/04/2022 10:10 AM [facility] Calcium 9.6 8.4 - 10.4 mg/dL 05/04/2022 10:10 AM [facility] Anion Gap 12 8 - 18 mmol/L 05/04/2022 10:10 AM [facility] BUN 9 8.9 - 20.6 mg/dL 05/04/2022 10:10 AM [facility] Creatinine 0.88 0.72 - 1.25 mg/dL 05/04/2022 10:10 AM [facility] Alkaline Phosphatase 88 40 - 150 U/L 05/04/2022 10:10 AM [facility] ALT 46 0 - 61 U/L 05/04/2022 10:10 AM [facility] AST 25 5 - 34 U/L 05/04/2022 10:10 AM [facility] Protein Total 7.5 6.4 - 8.3 gm/dL 05/04/2022 10:10 AM [facility] Albumin 4.4 3.5 - 5.2 gm/dL 05/04/2022 10:10 AM [facility] Bilirubin Total 0.7 0.2 - 1.2 mg/dL 05/04/2022 10:10 AM [facility] eGFR by CKD-EPI >90 >=90 mL/min/1.7 3 m2 05/04/2022 10:10 AM [facility] Blood BLOOD SPECIMEN / Unknown Venipuncture / Unknown 05/04/2022 9:45 AM CDT 05/04/2022 9:49 AM CDT Disha Mojica PA-C LAB - CHEMISTRY ORDERABLES [facility] [address] [place] [address] from Last 3 Months or Most Recently Relevant to Health Maintenance Care Teams Welding Tester Relationship Specialty Start Date End Date Haris Hoffman DO PCP - General 05/23/19
--- OUTSIDE RECORDS SUMMARY | 2024-08-25 11:45 | XMS_ITS | Clinical Summary ---
Author Organization [facility] Address [address] [place] [address] Care Team Providers Care Seismograph Operator Name Role Phone Haris Hoffman Vicente HIDALGO Primary Care Provider + Source Comments [facility],non-owned Affiliates and Associated Physician Practices is amultiple site organization consisting of ambulatory clinics and hospital sitesin [place], [place], [place] and [place]. This disclosure is being madepursuant to the Care Everywhere program and may not contain all information available regarding this patient. Last updated 18.[facility] Allergies No known active allergies Medications * Be aware that medications may not be up to date on this document. Alwaysverify current medications with the patient. Medication Sig Dispensed Refills Start Date End Date Status Cholecalciferol (VITAMIN D PO) Active fluticasone propionate (FLONASE ALLERGY RELIEF) 50 MCG/ACT nasal sprayIndications:Al lergic Rhinitis [place] 2 sprays into each nostril once [...] COMPREHENSIVE METABOLIC PANEL (05/04/2022 9:45 AM CDT) [facility] Glucose 97 70 - 105 mg/dL 05/04/2022 10:10 AM CDT [facility] Sodium 138 136 - 145 mmol/L 05/04/2022 10:10 AM CDT [facility] Potassium 4.1 3.5 - 5.1 mmol/L 05/04/2022 10:10 AM CDT [facility] Chloride 106 98 - 107 mmol/L 05/04/2022 10:10 AM CDT [facility] CO2 20(L) 23 - 31 mmol/L 05/04/2022 10:10 AM CDT [facility] Calcium 9.6 8.4 - 10.4 mg/dL 05/04/2022 10:10 AM CDT [facility] Anion Gap 12 8 - 18 mmol/L 05/04/2022 10:10 AM CDT [facility] BUN 9 8.9 - 20.6 mg/dL 05/04/2022 10:10 AM CDT [facility] Creatinine 0.88 0.72 - 1.25 mg/dL 05/04/2022 10:10 AM CDT [facility] Alkaline Phosphatase 88 40 - 150 U/L 05/04/2022 10:10 AM CDT [facility] ALT 46 0 - 61 U/L 05/04/2022 10:10 AM CDT [facility] AST 25 5 - 34 U/L 05/04/2022 10:10 AM CDT [facility] Protein Total 7.5 6.4 - 8.3 gm/dL 05/04/2022 10:10 AM CDT [facility] Albumin 4.4 3.5 - 5.2 gm/dL 05/04/2022 10:10 AM T [facility] Bilirubin Total 0.7 0.2 - 1.2 mg/dL 05/04/2022 10:10 AM T [facility] eGFR by CKD-EPI >90 >=90 mL/min/1.7 3 m2 05/04/2022 10:10 AM T [facility] Blood BLOOD SPECIMEN / Unknown Venipuncture / Unknown 05/04/2022 9:45 AM CDT 05/04/2022 9:49 AM CDT Disha Mojica PA-C LAB - CHEMISTRY ORDERABLES [facility] [address] [place] [address] from Last 3 Months or Most Recently Relevant to Health Maintenance Care Teams Seismograph Operator Relationship Specialty Start Date End Date Haris Hoffman DO PCP - General 05/23/19
--- OUTSIDE RECORDS SUMMARY | 2024-08-25 11:45 | XMS_ITS | Patient Health Record ---
Author Organization [facility] Address [address] [place] [address] Care Team Providers Care [employer] Name Role Phone Boni Romero Primary Care Provider [phone] Manuelito Larson [phone] Allergies No Known Allergies Results Component Value Reference Range Notes [place] (Eskalith(R)), Serum Reviewed date:10/02/2023 10:00:59 AM Interpretation: Performing [facility] Phone - [phone], Director - PhDJordi Notes/Report: [place] (Eskalith(R)), Serum 0.4 0.5-1.2 mmol /L A concentration of 0.5-0.8 mmol/L is advised for long-term use; concentrations of up to 1.2 mmol/L may be necessary during acute treatment. Detection Limit = 0.1 <0.1 indicates None Detected CBC With Differential/Platel et* Reviewed date:10/02/2023 08:12:40 AM Interpretation: Performing Lab:[facility], [address], [place], Phone - [phone], Director - PhDJordi Notes/Report: WBC 16.5 3.4-10.8 x10E3/uL RBC 4.86 [...] Panel* Reviewed date:10/02/2023 08:11:18 AM Interpretation: Performing Lab:[facility] [place], [address] [facility], Phone - [phone], Director - Edison Notes/Report: Glucose 100 70-99 mg/dL BUN 8 [...] 0-40 IU/L ALT (SGPT) 139 0-44 IU/L TSH+Free T4* Reviewed date:10/02/2023 08:08:46 AM Interpretation: Performing [facility], [address] [place] [address], Phone - [phone], Director - [facility] Notes/Report: TSH 2.620 0.450-4.500 uIU/mL T4,Free(Direct) 1.40 0.82-1.77 ng/dL Hemoglobin A1c Reviewed date:10/02/2023 08:08:35 AM Interpretation: Performing [facility], [address] [place] [address], Phone - [phone], Director [facility] Notes/Report: Hemoglobin A1c 5.5 Reference Range: [place] Diabetes Association (ADA) Guidelines: <5.7: Decreased risk for diabetes 5.7 - 6.4: Increased risk for diabetes >6.4: Ongoing Hyperglycemia of any cause <7.0: Glycemic control for adults with diabetes Estimated Average Glucose 111 Vitamin D, 25-Hydroxy* Reviewed date:10/02/2023 08:10:05 AM Interpretation: Performing Lab:[address], Phone - [phone], Director - [facility] Notes/Report: Vitamin D, 25-Hydroxy 28.7 30.0-100.0 ng/mL Vitamin D deficiency has been defined by the [place] of Medicine and an Endocrine Society practice guideline as a level of serum 25-OH vitamin D less than 20 ng/mL (1,2). The Endocrine Society went on to further define vitamin D insufficiency as a level between 21 and 29 ng/mL (2). 1. IOM ([place] of Medicine). 2010. Dietary reference intakes for calcium and D. [place]: The National Academies Press. 2. Dee MF, Elisa NC, Eusebia DAVIS, et al. Evaluation, treatment, and prevention of vitamin D deficiency: an Endocrine Society clinical practice guideline. JCEM. 2010; 96(7):1911-30. Vitamin B12 and Folate Reviewed date:10/02/2023 08:08:24 AM Interpretation: Performing [facility], [address] [place] [address], Phone - [phone], Director - [facility] Notes/Report: Vitamin B12 020 078-7260 pg/mL Folate (Folic Acid), Serum 7.4 >3.0 ng/mL A serum folate concentration of less than 3.1 ng/mL is considered to represent clinical deficiency. 12 Panel Urine Drug Screen Reviewed date:10/10/2023 09:14:30 AM Interpretation: Performing Lab: Notes/Report: THC POS HUGO neg MOP (OPI) neg AMP neg MET neg BAR neg BZO neg MDMA neg MTD neg OXY neg PCP neg BUP neg [place] (Eskalith(R)), Serum Reviewed date:04/17/2024 09:59:04 AM Interpretation: Performing [facility], [address] [place] [address], Phone - [phone], Director - [facility] Notes/Report: [place] (Eskalith(R)), Serum 0.8 0.5-1.2 mmol /L A concentration of 0.5-0.8 mmol/L is advised for long-term use; concentrations of up to 1.2 mmol/L may be necessary during acute treatment. Detection Limit = 0.1 <0.1 indicates None Detected [place] (Eskalith(R)), Serum Reviewed date:10/12/2023 11:38:34 AM Interpretation: Performing Lab:[facility] [place], [address] [facility], Phone - [phone], Director - [facility] Notes/Report: [place] (Eskalith(R)), Serum 0.9 0.5-1.2 mmol /L A concentration of 0.5-0.8 mmol/L is advised for long-term use; concentrations of up to 1.2 mmol/L may be necessary during acute treatment. Detection Limit = 0.1 <0.1 indicates None Detected Reason For Referral No Information Medications Medication SIG (Take, Route, Frequency, Duration) Notes Start Date End Date Status Pantoprazole Sodium 40 MG 1 tablet 1/2 t o 1 hour before morning meal Orally Once a day Active Propranolol HCl ER 120 MG 1 capsule at bedtime Orally Once a day for 14 days increased from 60 mg 09/27/2023 Active QUEtiapine Fumarate 50 MG 0.5 - 1 tablet at bedtime Orally Once a day 11/08/2023 Active Dexmethylphenidate HCl ER 15 MG 1 capsule in the morning Orally Once a day. for 30 days 08/05/2024 Active Venlafaxine HCl ER 75 MG 1 capsule with food Orally Once a day 10/26/2023 Active Eszopiclone 1 MG 1 tablet immediately before bedtime Orally Once a day 06/10/2024 Active Vraylar 3 MG 1 capsule Orally Once a day 04/22/2024 Active buPROPion HCl ER (XL) 300 MG 1 tablet in the morning Orally Once a day 06/03/2021 Active Dexmethylphenidate HCl ER 15 MG 1 capsule in the morning Orally Once a day. Please fill on or after June 18, 2024. for 30 days 06/10/2024 Active [place] Carbonate ER 450 MG 3 tablets at bedtime Orally Once a day Active Ondansetron HCl 4 MG 1 tablet Orally Once a day for 30 days As needed for nausea 03/27/2024 Active Social History Tobacco Use: Social History [...] brother Emotional: Mother- always , teacher. Sexual: pocket secretary assembler , friends of mother Job: [employer] in [place]. Works evenings. : none Social: parents shortly [...] brother Emotional: Mother- always , teacher. Sexual: pocket secretary assembler , friends of mother Job: [employer] in [place]. Works evenings. : none Social: parents shortly [...] brother Emotional: Mother- always , teacher. Sexual: pocket secretary assembler , friends of mother Job: [employer] in [place]. Works evenings. : none Social: parents shortly [...] brother Emotional: Mother- always , teacher. Sexual: pocket secretary assembler , friends of mother Job: [employer] in [place]. Works evenings. : none Legal: Has a [...] brother Emotional: Mother- always , teacher. Sexual: pocket secretary assembler , friends of mother Legal: Has a [...] brother Emotional: Mother- always , teacher. Sexual: pocket secretary assembler , friends of mother Job: [employer] in [place]. Works evenings. : none Legal: Has a [...] brother Emotional: Mother- always , teacher. Sexual: pocket secretary assembler , friends of mother Legal: Has a [...] brother Emotional: Mother- always , teacher. Sexual: pocket secretary assembler , friends of mother Job: [employer] in [place]. Works evenings. : none Social: parents shortly [...] brother Emotional: Mother- always , teacher. Sexual: pocket secretary assembler , friends of mother Job: [employer] in [place]. Works evenings. : none Social: parents shortly [...] brother Emotional: Mother- always , teacher. Sexual: pocket secretary assembler , friends of mother Job: [employer] in [place]. Works evenings. : none Social: parents shortly [...] brother Emotional: Mother- always , teacher. Sexual: pocket secretary assembler , friends of mother Job: [employer] in [place]. Works evenings. : none Social: parents shortly [...] brother Emotional: Mother- always , teacher. Sexual: pocket secretary assembler , friends of mother Job: [employer] in [place]. Works evenings. : none Social: parents shortly [...] brother Emotional: Mother- always , teacher. Sexual: pocket secretary assembler , friends of mother Job: [employer] in [place]. Works evenings. : none Social: parents shortly [...] brother Emotional: Mother- always , teacher. Sexual: pocket secretary assembler , friends of mother Job: [employer] in [place]. Works evenings. : none Social: parents shortly [...] brother Emotional: Mother- always , teacher. Sexual: pocket secretary assembler , friends of mother Job: [employer] in [place]. Works evenings. : none Social: parents shortly [...] brother Emotional: Mother- always , teacher. Sexual: pocket secretary assembler , friends of mother Job: [employer] in [place]. Works evenings. : none Social: parents shortly [...] brother Emotional: Mother- always , teacher. Sexual: pocket secretary assembler , friends of mother Job: [employer] in [place]. Works evenings. : none Social: parents shortly [...] brother Emotional: Mother- always , teacher. Sexual: pocket secretary assembler , friends of mother Job: [employer] in [place]. Works evenings. : none Social: parents shortly [...] brother Emotional: Mother- always , teacher. Sexual: pocket secretary assembler , friends of mother Job: [employer] in [place]. Works evenings. : none Legal: Has a [...] brother Emotional: Mother- always , teacher. Sexual: pocket secretary assembler , friends of mother Legal: Has a [...] brother Emotional: Mother- always , teacher. Sexual: pocket secretary assembler , friends of mother Job: [employer] in [place]. Works evenings. : none Social: parents shortly [...] brother Emotional: Mother- always , teacher. Sexual: pocket secretary assembler , friends of mother Job: [employer] in [place]. Works evenings. : none Social: parents shortly [...] brother Emotional: Mother- always , teacher. Sexual: pocket secretary assembler , friends of mother Job: [employer] in [place]. Works evenings. : none Social: parents shortly [...] brother Emotional: Mother- always , teacher. Sexual: pocket secretary assembler , friends of mother Job: [employer] in [place]. Works evenings. : none Social: parents shortly [...] brother Emotional: Mother- always , teacher. Sexual: pocket secretary assembler , friends of mother Job: [employer] in [place]. Works evenings. : none Social: parents shortly [...] brother Emotional: Mother- always , teacher. Sexual: pocket secretary assembler , friends of mother Job: [employer] in [place]. Works evenings. : none Social: parents shortly [...] brother Emotional: Mother- always , teacher. Sexual: pocket secretary assembler , friends of mother Job: [employer] in [place]. Works evenings. : none Social: parents shortly [...] brother Emotional: Mother- always , teacher. Sexual: pocket secretary assembler , friends of mother Job: [employer] in [place]. Works evenings. : none Social: parents shortly [...] brother Emotional: Mother- always , teacher. Sexual: pocket secretary assembler , friends of mother Job: [employer] in [place]. Works evenings. : none Social: parents shortly [...] brother Emotional: Mother- always , teacher. Sexual: pocket secretary assembler , friends of mother Job: [employer] in [place]. Works evenings. : none Social: parents shortly [...] brother Emotional: Mother- always , teacher. Sexual: pocket secretary assembler , friends of mother Job: [employer] in [place]. Works evenings. : none Social: parents shortly [...] brother Emotional: Mother- always , teacher. Sexual: pocket secretary assembler , friends of mother Job: [employer] in [place]. Works evenings. : none Social: parents shortly [...] brother Emotional: Mother- always , teacher. Sexual: pocket secretary assembler , friends of mother Job: [employer] in [place]. Works evenings. : none Social: parents shortly [...] brother Emotional: Mother- always , teacher. Sexual: pocket secretary assembler , friends of mother Job: [employer] in [place]. Works evenings. : none Social: parents shortly [...] brother Emotional: Mother- always , teacher. Sexual: pocket secretary assembler , friends of mother Job: [employer] in [place]. Works evenings. : none Social: parents shortly [...] brother Emotional: Mother- always , teacher. Sexual: pocket secretary assembler , friends of mother Job: [employer] in [place]. Works evenings. : none Social: parents shortly [...] brother Emotional: Mother- always , teacher. Sexual: pocket secretary assembler , friends of mother Job: [employer] in [place]. Works evenings. : none Social: parents shortly [...] brother Emotional: Mother- always , teacher. Sexual: pocket secretary assembler , friends of mother Job: [employer] in [place]. Works evenings. : none Social: parents shortly [...] brother Emotional: Mother- always , teacher. Sexual: pocket secretary assembler , friends of mother Job: [employer] in [place]. Works evenings. : none Social: parents shortly [...] brother Emotional: Mother- always , teacher. Sexual: pocket secretary assembler , friends of mother Job: [employer] in [place]. Works evenings. : none Social: parents shortly [...] brother Emotional: Mother- always , teacher. Sexual: pocket secretary assembler , friends of mother Job: [employer] in [place]. Works evenings. : none Social: parents shortly [...] brother Emotional: Mother- always , teacher. Sexual: pocket secretary assembler , friends of mother Job: [employer] in [place]. Works evenings. : none Social: parents shortly [...] brother Emotional: Mother- always , teacher. Sexual: pocket secretary assembler , friends of mother Job: [employer] in [place]. Works evenings. : none Social: parents shortly [...] brother Emotional: Mother- always , teacher. Sexual: pocket secretary assembler , friends of mother Job: [employer] in [place]. Works evenings. : none Social: parents shortly [...] brother Emotional: Mother- always , teacher. Sexual: pocket secretary assembler , friends of mother Job: [employer] in [place]. Works evenings. : none Social: parents shortly [...] brother Emotional: Mother- always , teacher. Sexual: pocket secretary assembler , friends of mother Job: [employer] in [place]. Works evenings. : none Social: parents shortly [...] brother Emotional: Mother- always , teacher. Sexual: pocket secretary assembler , friends of mother Job: [employer] in [place]. Works evenings. : none Social: parents shortly [...] brother Emotional: Mother- always , teacher. Sexual: pocket secretary assembler , friends of mother Job: [employer] in [place]. Works evenings. : none Social: parents shortly [...] brother Emotional: Mother- always , teacher. Sexual: pocket secretary assembler , friends of mother Job: [employer] in [place]. Works evenings. : none Social: parents shortly [...] brother Emotional: Mother- always , teacher. Sexual: pocket secretary assembler , friends of mother Job: [employer] in [place]. Works evenings. 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 confirmed Problem [id number] ROSY (generalized anxiety disorder) (F41.1) Active confirmed Problem Medication monitoring (487647619) Medication monitoring encounter (Z51.81) Active confirmed Problem Obesity (312824212) Obesity, unspecified classification, unspecified obesity type, unspecified whether serious comorbidity present (E66.9) Active confirmed Problem Recurrent major depression (07574887) Major depressive disorder, recurrent, in remission, unspecified (F33.40) Inactive confirmed Problem Recurrent major depression in remission (92060030) MDD (major depressive disorder), recurrent, in partial remission (F33.41) Inactive confirmed Problem Severe recurrent major depression without psychotic features (49700794) MDD (major depressive disorder), recurrent episode, severe (F33.2) Inactive confirmed Problem Bipolar affective disorder, currently manic, moderate (087539117) Bipolar 1 disorder with moderate rachel (F31.12) Problem resolved confirmed Vital Signs Heart Rate 84 /min 10/18/2023 Respiratory Rate 16 /min 10/04/2023 Blood pressure diastolic 88 mm Hg 10/18/2023 Oximetry 93 % 10/18/2023 Height 73 in 10/18/2023 Blood pressure systolic 128 mm Hg 10/18/2023 Weight 253.8 lbs 10/18/2023 BMI 33.48 kg/m2 10/18/2023 Encounters Encounter Location Date Provider Diagnosis [address] [address] 08/27/2023 Boni Romero [address] [address] 09/17/2023 Boni Romero Bipolar 1 disorder F31.[address] [address] 09/24/2023 Boni Romero [address] [address] 10/02/2023 Boni Romero Counts Include [facility] [address] [place] [address] 10/10/2023 Boni Romero ADHD (attention deficit hyperactivity disorder), inattentive type F90.0 [facility] [address] [place] [address] 10/22/2023 Boni Romero ROSY (generalized anxiety disorder) F41.[address] [address] 10/25/2023 Boni Romero Bipolar 1 disorder F31.[address] [address] 11/08/2023 Boni Romero Bipolar 1 disorder F31.[address] [address] 12/14/2023 Boni Romero ADHD (attention deficit hyperactivity disorder), inattentive type F90.0 [facility] [address] [place] [address] 12/17/2023 Boni Romero [address] [address] 01/10/2024 Boni Romero [facility] [address] [place] [address] 01/15/2024 Boni Romero [address] [address] 02/19/2024 Boni Romero ADHD (attention deficit hyperactivity disorder), inattentive type F90.[address] [address] 03/18/2024 Bnoi Romero [address] [address] 03/28/2024 Boni Romero [address] [address] 04/25/2024 Boni Romero Bipolar 1 disorder F31.[address] [address] 06/24/2024 Boni Romero ROSY (generalized anxiety disorder) F41.[address] [address] 06/27/2024 Boni Romero ROSY (generalized anxiety disorder) F41.[address] [address] 07/03/2024 Boni Romero [address] [address] 05/27/2024 Boni Romero [address] [address] 06/11/[address] [address] 08/04/2024 Boni Romero ADHD (attention deficit hyperactivity disorder), inattentive type F90.[address] [place] [address] 08/21/2024 Boni Romero ROSY (generalized anxiety disorder) F41.[address] [address] 10/18/2023 Boni Romero Nutritional counseling Z71.3 ; Bipolar 1 disorder F31.9 ; ADHD (attention deficit hyperactivity disorder), inattentive type F90.0 ; ROSY (generalized anxiety disorder) F41.1 and Insomnia G47.[address] [address] 09/27/2023 Boni Romero Bipolar 1 disorder F31.9 ; ADHD (attention deficit hyperactivity disorder), inattentive type F90.0 ; ROSY (generalized anxiety disorder) F41.1 ; Post-traumatic stress disorder, unspecified F43.10 ; Medication monitoring encounter Z51.81 and Blood pressure elevated without history of HTN R03.[address] [address] 10/04/2023 Boni Romero Nutritional counseling Z71.3 ; Bipolar 1 disorder F31.9 ; Post-traumatic stress disorder, unspecified F43.10 ; ROSY (generalized anxiety disorder) F41.1 ; ADHD (attention deficit hyperactivity disorder), inattentive type F90.0 and Medication monitoring encounter Z51.[address] [address] 10/10/2023 Boni Romero Bipolar 1 disorder F31.9 and Medication monitoring encounter Z51.[address] [address] 04/02/2024 Boni Romero Medication monitorin g encounter Z51.[address] [address] 09/11/2023 Boni Romero Bipolar 1 disorder F31.9 ; ADHD (attention deficit hyperactivity disorder), inattentive type F90.0 ; ROSY (generalized anxiety disorder) F41.1 and Insomnia G47.[address] [address] 10/30/2023 Boni oRmero Bipolar 1 disorder F31.9 ; ROSY (generalized anxiety disorder) F41.1 ; Post-traumatic stress disorder, unspecified F43.10 ; ADHD (attention deficit hyperactivity disorder), inattentive type F90.0 and Insomnia G47.[address] [address] 11/12/2023 Boni Romero Bipolar 1 disorder F31.9 ; ADHD (attention deficit hyperactivity disorder), inattentive type F90.0 ; ROSY (generalized anxiety disorder) F41.1 ; Post-traumatic stress disorder, unspecified F43.10 and Insomnia G47.[address] [address] 12/03/2023 Boni Romero Bipolar 1 disorder F31.9 ; Insomnia G47.00 ; Post-traumatic stress disorder, unspecified F43.10 ; ROSY (generalized anxiety disorder) F41.1 and ADHD (attention deficit hyperactivity disorder), inattentive type F90.[address] [address] 12/31/2023 Boni Romero Bipolar 1 disorder F31.9 ; ADHD (attention deficit hyperactivity disorder), inattentive type F90.0 ; ROSY (generalized anxiety disorder) F41.1 and Insomnia G47.[address] [address] 01/28/2024 Boni Romero Bipolar 1 disorder F31.9 ; Post-traumatic stress disorder, unspecified F43.10 ; ROSY (generalized anxiety disorder) F41.1 ; ADHD (attention deficit hyperactivity disorder), inattentive type F90.0 and Insomnia G47.[address] [address] 03/27/2024 Boni Romero Bipolar 1 disorder F31.9 ; ADHD (attention deficit hyperactivity disorder), inattentive type F90.0 ; ROSY (generalized anxiety disorder) F41.1 ; Insomnia G47.00 ; Medication monitoring encounter Z51.81 and Medication side effect [id number] [address] [address] 04/22/2024 Boni Romero Bipolar 1 disorder F31.9 ; ADHD (attention deficit hyperactivity disorder), inattentive type F90.0 ; ROSY (generalized anxiety disorder) F41.1 ; Post-traumatic stress disorder, unspecified F43.10 and Insomnia G47.[address] [address] 05/12/2024 Boni Romero Bipolar 1 disorder F31.9 ; ADHD (attention deficit hyperactivity disorder), inattentive type F90.0 ; ROSY (generalized anxiety disorder) F41.1 ; Post-traumatic stress disorder, unspecified F43.10 and Insomnia G47.[address] [address] 06/10/2024 Boni Romero Bipolar 1 disorder F31.9 ; ADHD (attention deficit hyperactivity disorder), inattentive type F90.0 ; ROSY (generalized anxiety disorder) F41.1 ; Post-traumatic stress disorder, unspecified F43.10 and Insomnia G47.[address] [address] 06/23/2024 Boni Romero Bipolar 1 disorder F31.9 ; ADHD (attention deficit hyperactivity disorder), inattentive type F90.0 ; ROSY (generalized anxiety disorder) F41.1 ; Post-traumatic stress disorder, unspecified F43.10 and Insomnia G47.[address] [address] 07/07/2024 Boni Romero Bipolar 1 disorder F31.9 ; Post-traumatic stress disorder, unspecified F43.10 ; ROSY (generalized anxiety disorder) F41.1 ; Insomnia G47.00 and ADHD (attention deficit hyperactivity disorder), inattentive type F90.0 Assessments Encounter Date Diagnosis (ICD Code) Assessment Notes Treatment Notes Treatment Clinical Notes Section Notes 09/17/2023 Bipolar 1 disorder (ICD-10 - F31.9) [...] facial flushing persists after initiating propranolol ER. 10/22/2023 ROSY (generalized anxiety disorder) (ICD-10 - F41.1) 12/03/2023 Bipolar 1 disorder (ICD-10 - F31.9) Client doing well, no treatment plan changes needed. 12/14/2023 ADHD (attention deficit hyperactivity disorder), inattentive type (ICD-10 - F90.0) 01/28/2024 Bipolar 1 disorder (ICD-10 - F31.9) 03/27/2024 Bipolar 1 disorder (ICD-10 - F31.9) [...] understanding and is agreeable with this plan. 04/25/2024 Bipolar 1 disorder (ICD-10 - F31.9) 06/10/2024 Bipolar 1 disorder (ICD-10 - F31.9) 12/31/2023 Bipolar 1 disorder (ICD-10 - F31.9) Treatment 1. Bipolar 1 disorder Refill [place] Carbonate ER Tablet Extended Release, 450 MG, [...] a day., 30 days, 30, Refills 0 06/27/2024 ROSY (generalized anxiety disorder) (ICD-10 - F41.1) 02/19/2024 ADHD (attention deficit hyperactivity disorder), inattentive type (ICD-10 - F90.0) 11/12/2023 Bipolar 1 disorder (ICD-10 - F31.9) Client doing well, no treatment plan changes at present time. 11/08/2023 Bipolar 1 disorder (ICD-10 - F31.9) 10/30/2023 Bipolar 1 disorder (ICD-10 - F31.9) 10/25/2023 Bipolar 1 disorder (ICD-10 - F31.9) 10/18/2023 Bipolar 1 disorder (ICD-10 - F31.9) 10/18/2023 Nutritional counseling (ICD-10 - Z71.3) 10/10/2023 ADHD (attention deficit hyperactivity disorder), inattentive type (ICD-10 - F90.0) 10/10/2023 Bipolar 1 disorder (ICD-10 - F31.9) 10/04/2023 Bipolar 1 disorder (ICD-10 - F31.9) Client doing much better, out of manic phase. Recheck of lithium level this week after adjusting dose up. Client now sleeping at night. Will RTC in 2 weeks to monitor. 09/11/2023 Bipolar 1 disorder (ICD-10 - F31.9) [...] for full lab work and vital signs. 10/04/2023 Nutritional counseling (ICD-10 - Z71.3) Client doing much better, out of manic phase. Recheck of lithium level this week after adjusting dose up. Client now sleeping at night. Will RTC in 2 weeks to monitor. 08/21/2024 ROSY (generalized anxiety disorder) (ICD-10 - F41.1) 08/04/2024 ADHD (attention deficit hyperactivity disorder), inattentive type (ICD-10 - F90.0) 07/07/2024 Bipolar 1 disorder (ICD-10 - F31.9) Client has been encouraged for months to re-engage in therapy due to suspected cyclic vomiting syndrome and has not done so. Continues to have symptoms. Again encouraged client to engage in therapy. Propranolol increased to match dose client was taking earlier in month that he found helpful with no reported side effects (120 mg ER). Educated to take once a day only. No other medication changes currently. Encouraged client to f/u with GI regarding vomiting and hernia issues. 06/23/2024 Bipolar 1 disorder (ICD-10 - F31.9) [...] appt on 07-07 to reassess condition. 05/12/2024 Bipolar 1 disorder (ICD-10 - F31.9) Client doing well, no treatment plan changes needed. Client has done much better on Focalin ER than on Adderall. 04/02/2024 Medication monitoring encounter (ICD-10 - Z51.81) 04/22/2024 Bipolar 1 disorder (ICD-10 - F31.9) Client requests to replace Latuda with Vraylar to aide with mild depression and secure stability. [place] continued at 3 tablets per night (1350 mg) due to lithium level results. No other treatment plan changes. 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 [place] continued at 3 tablets per night (1350 mg) due to lithium level results. No other treatment plan changes. 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 Client has done much better on Focalin ER than on Adderall. 06/23/2024 ADHD (attention deficit hyperactivity disorder), inattentive [...] Has appt on 07-07 to reassess condition. 07/07/2024 Post-traumatic stress disorder, unspecified (ICD-10 - F43.10) Client has been encouraged for months to re-engage in therapy due to suspected cyclic vomiting syndrome and has not done so. Continues to have symptoms. Again encouraged client to engage in therapy. Propranolol increased to match dose client was taking earlier in month that he found helpful with no reported side effects (120 mg ER). Educated to take once a day only. No other medication changes currently. Encouraged client to f/u with GI regarding vomiting and hernia issues. 10/30/2023 ROSY (generalized anxiety disorder) (ICD-10 - F41.1) 09/11/2023 ROSY (generalized anxiety disorder) (ICD-10 - [...] for full lab work and vital signs. 10/10/2023 Medication monitoring encounter (ICD-10 - Z51.81) 10/04/2023 Post-traumatic stress disorder, unspecified (ICD-10 - F43.10) Client doing much better, out of manic phase. Recheck of lithium level this week after adjusting dose up. Client now sleeping at night. Will RTC in 2 weeks to monitor. 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 01/28/2024 Post-traumatic stress disorder, unspecified (ICD-10 - F43.10) 12/03/2023 Insomnia (ICD-10 - G47.00) Client doing well, no treatment plan changes needed. 09/27/2023 ROSY (generalized anxiety disorder) (ICD-10 - [...] flushing persists after initiating propranolol ER. 09/27/2023 Post-traumatic stress disorder, unspecified (ICD-10 - [...] facial flushing persists after initiating propranolol ER. 12/03/2023 Post-traumatic stress disorder, unspecified (ICD-10 - [...] understanding and is agreeable with this plan. 06/10/2024 ROSY (generalized anxiety disorder) (ICD-10 - F41.1) 12/31/2023 ROSY (generalized anxiety disorder) (ICD-10 - F41.1) Treatment 1. Bipolar 1 disorder Refill [place] Carbonate ER Tablet Extended Release, 450 MG, [...] day., 30 days, 30, Refills 0 11/12/2023 ROSY (generalized anxiety disorder) (ICD-10 - F41.1) Client doing well, no treatment plan changes at present time. 10/30/2023 Post-traumatic stress disorder, unspecified (ICD-10 - F43.10) 10/18/2023 ROSY (generalized anxiety disorder) (ICD-10 - F41.1) 10/04/2023 ROSY (generalized anxiety disorder) (ICD-10 - F41.1) Client doing much better, out of manic phase. Recheck of lithium level this week after adjusting dose up. Client now sleeping at night. Will RTC in 2 weeks to monitor. 09/11/2023 Insomnia (ICD-10 - G47.00) Client had [...] for full lab work and vital signs. 06/23/2024 ROSY (generalized anxiety disorder) (ICD-10 - [...] Has appt on 07-07 to reassess condition. 07/07/2024 ROSY (generalized anxiety disorder) (ICD-10 - F41.1) Client has been encouraged for months to re-engage in therapy due to suspected cyclic vomiting syndrome and has not done so. Continues to have symptoms. Again encouraged client to engage in therapy. Propranolol increased to match dose client was taking earlier in month that he found helpful with no reported side effects (120 mg ER). Educated to take once a day only. No other medication changes currently. Encouraged client to f/u with GI regarding vomiting and hernia issues. 05/12/2024 ROSY (generalized anxiety disorder) (ICD-10 - F41.1) Client doing well, no treatment plan changes needed. Client has done much better on Focalin ER than on Adderall. 04/22/2024 ROSY (generalized anxiety disorder) (ICD-10 - F41.1) Client requests to replace Latuda with Vraylar to aide with mild depression and secure stability. [place] continued at 3 tablets per night (1350 mg) due to lithium level results. No other treatment plan changes. 04/22/2024 Post-traumatic stress disorder, unspecified (ICD-10 - F43.10) Client requests to replace Latuda with Vraylar to aide with mild depression and secure stability. [place] continued at 3 tablets per night (1350 mg) due to lithium level results. No other treatment plan changes. 06/23/2024 Post-traumatic stress disorder, unspecified (ICD-10 - [...] appt on 07-07 to reassess condition. 05/12/2024 Post-traumatic stress disorder, unspecified (ICD-10 - F43.10) Client doing well, no treatment plan changes needed. Client has done much better on Focalin ER than on Adderall. 07/07/2024 Insomnia (ICD-10 - G47.00) Client has been encouraged for months to re-engage in therapy due to suspected cyclic vomiting syndrome and has not done so. Continues to have symptoms. Again encouraged client to engage in therapy. Propranolol increased to match dose client was taking earlier in month that he found helpful with no reported side effects (120 mg ER). Educated to take once a day only. No other medication changes currently. Encouraged client to f/u with GI regarding vomiting and hernia issues. 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 Recheck of lithium level this week after adjusting dose up. Client now sleeping at night. Will RTC in 2 weeks to monitor. 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 Bipolar 1 disorder Refill [place] Carbonate ER Tablet Extended Release, 450 MG, [...] no treatment plan changes at present time. 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 12/03/2023 ROSY (generalized anxiety disorder) (ICD-10 - F41.1) Client doing well, no treatment plan changes needed. 09/27/2023 Medication monitoring encounter (ICD-10 - Z51.81) [...] flushing persists after initiating propranolol ER. 09/27/2023 Blood pressure elevated without history of [...] facial flushing persists after initiating propranolol ER. 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 03/27/2024 Medication side effect (ICD-10 - T88.7XXA) [...] understanding and is agreeable with this plan. 06/10/2024 Insomnia (ICD-10 - G47.00) 11/12/2023 Insomnia (ICD-10 - G47.00) Client doing well, no treatment plan changes at present time. 10/30/2023 Insomnia (ICD-10 - G47.00) 10/04/2023 Medication monitoring encounter (ICD-10 - Z51.81) Client doing much better, out of manic phase. Recheck of lithium level this week after adjusting dose up. Client now sleeping at night. Will RTC in 2 weeks to monitor. 05/12/2024 Insomnia (ICD-10 - G47.00) Client doing well, no treatment plan changes needed. Client has done much better on Focalin ER than on Adderall. 06/23/2024 Insomnia (ICD-10 - G47.00) Vraylar increased [...] Has appt on 07-07 to reassess condition. 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 Continues to have symptoms. Again encouraged client to engage in therapy. Propranolol increased to match dose client was taking earlier in month that he found helpful with no reported side effects (120 mg ER). Educated to take once a day only. No other medication changes currently. Encouraged client to f/u with GI regarding vomiting and hernia issues. 04/22/2024 Insomnia (ICD-10 - G47.00) [place] number to the 24-hour crisis line at [facility]. Questions addressed. Client verbalized understanding of all information and is agreeable to treatment plan. Client requests to replace Latuda with Vraylar to aide with mild depression and secure stability. [place] continued at 3 tablets per night (1350 mg) due to lithium level results. No other treatment plan changes. 07/07/2024 Other Discussed sleep hygiene and caffeine intake with [...] number to the 24-hour crisis line at [facility]. Questions addressed. Client verbalized understanding of all information and is agreeable to treatment plan. Client has been encouraged for months to re-engage in therapy due to suspected cyclic vomiting syndrome and has not done so. Continues to have symptoms. Again encouraged client to engage in therapy. Propranolol increased to match dose client was taking earlier in month that he found helpful with no reported side effects (120 mg ER). Educated to take once a day only. No other medication changes currently. Encouraged client to f/u with GI regarding vomiting and hernia issues. 12/31/2023 [place] [...] number to the 24-hour crisis line at [facility]. Questions addressed. Client verbalized understanding of all information and is agreeable to treatment plan. Treatment 1. Bipolar 1 disorder Refill [place] Carbonate ER Tablet Extended Release, 450 MG, [...] number to the 24-hour crisis line at [facility]. Questions addressed. Client verbalized understanding of [...] Has appt on 07-07 to reassess condition. 09/11/2023 [place] [...] number to the 24-hour crisis line at [facility]. Questions addressed. Client verbalized understanding of [...] number to the 24-hour crisis line at [facility]. Questions addressed. Client verbalized understanding of all information and is agreeable to treatment plan. RADHA Byrd Wendy S 09/27/2023 02:58:27 PM CDT >Clonidine 0.1 mg p.o. given to pt at 1455 for elevated BP.160/100. Denies headaches, dizziness or chest pain or shortness of breath. Will recheck BP in aprox 30 min. RADHA Byrd Wendy S 09/27/2023 04:03:56 PM CDT >BP rechecked at [...] number to the 24-hour crisis line at [facility]. Questions addressed. Client verbalized understanding of [...] number to the 24-hour crisis line at [facility]. Questions addressed. Client verbalized understanding of [...] number to the 24-hour crisis line at [facility]. Questions addressed. Client verbalized understanding of [...] number to the 24-hour crisis line at [facility]. Questions addressed. Client verbalized understanding of [...] number to the 24-hour crisis line at [facility]. Questions addressed. Client verbalized understanding of [...] number to the 24-hour crisis line at [facility]. Questions addressed. Client verbalized understanding of [...] number to the 24-hour crisis line at [facility]. Questions addressed. Client verbalized understanding of [...] number to the 24-hour crisis line at [facility]. Questions addressed. Client verbalized understanding of all information and is agreeable to treatment plan. Client doing well, no treatment plan changes needed. Client has done much better on Focalin ER than on Adderall. Plan Of Treatment Next Appt Details Provider Name:Boni Nuno , 09/02/2024 03:40:00 PM, [address] [facility], [place], [address], Insurance Providers Payer Name Payer Address Payer Phone Subscriber Number Group Number Insured Name Patient Relationship to Insured Coverage Start Date Coverage End Date [facility] [address] [place] [phone] [id number] David Rider Self - patient is the insured 2 Medical (General) History Medical History History ICD Code Bipolar 1 disorder with moderate rachel ( resolved 07/07/2022) Surgical History Surgery Date(Month/Year) Spinal fusion 2011 Hospitalization History Reason Date(Month/Year) [facility] 2020
--- OUTSIDE RECORDS SUMMARY | 2024-08-25 11:45 | XMS_ITS | Clinical Summary ---
Author Organization [facility] Address [address] [place] [address] Care Team Providers Care Rug Hooker Hand Name Role Phone Sangkenishajesus albertoEmily Vicente HIDALGO [...] type 11/16/2021 PTSD (post-traumatic stress disorder) 11/16/2021 ROYS (generalized anxiety disorder) 11/16/2021 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 05/09/2019 BMI 30.0-30.9,adult 05/09/2019 Gastroesophageal reflux disease with esophagitis 05/09/2019 Recurrent sinus infections 05/09/2019 Encounters Date Type Department Care Team Description 08/15/2024 9:00 AM CRANE HOOKER Office Visit [facility] [address] [address] Emily Jade, DO Cough (Patient c/o cough, chest congestion, and fatigue. Patient also endorses mild sore throat, attributes this to coughing. Patient states he had pneumonia at the end of June and feels like he may not have recovered fully from it. ) 08/15/2024 Travel 08/06/2024 8:40 AM CRANE HOOKER Laboratory Only [address] [address] Emily Jade, 08/06/2024 - 08/06/2024 11:59 PM CRANE HOOKER Hospital Encounter [facility] [address] [place] [address] Emily Jade, DO Discharge Disposition: Home or Self Care (Routine Discharge) 08/06/2024 Travel 07/30/2024 8:40 AM CRANE HOOKER Office Visit [facility] [address] [address] Emily Jade, Gi Problem (The patient reports acid reflux and vomiting almost daily for 3-4 months. The patient states he has woke up with food in his mouth in the middle of the night. ) 07/30/2024 Travel 07/17/[address] [address] Emily Jade, Referral 06/28/2024 Scan HEALTH INFO SRVCS Scanned, Doc [facility] CT (SCAN); Lab (SCAN) from Last 3 [...] Sex Assigned at Male 07/30/2024 9:03 AM CRANE HOOKER Legal Sex Male 7:17 PM CDT Gender Identity Male 07/30/2024 9:03 AM CRANE HOOKER Sexual Orientation Not on file Occupation Industry Job Start Date Job End Date Not on file Not on file Not on file Not on file Last Filed Vital Signs Vital Sign Reading Time Taken Comments Blood Pressure 126/82 08/15/2024 9:50 AM CRANE HOOKER Pulse 72 08/15/2024 9:50 AM CRANE HOOKER Temperature 36.9 C (98.4 F) 08/15/2024 9:50 AM CRANE HOOKER Respiratory Rate 20 08/15/2024 9:50 AM CRANE HOOKER Oxygen Saturation 97% 08/15/2024 9:50 AM CRANE HOOKER Inhaled Oxygen Concentration - - Weight 129.7 kg (285 lb 14.4 oz) 08/15/2024 9:50 AM CRANE HOOKER Height 188 cm (6' 2 ) 08/15/2024 9:50 AM CRANE HOOKER Body Mass Index 36.71 08/15/2024 9:50 AM CRANE HOOKER Plan of Treatment Upcoming Encounters Date Type Department Care Team (Late st Contact Info) Description 10/07/2024 11:20 AM CDT Office Visit [facility] Multispecialty Care - [address] [place] [address] Emily Jade P, DO [address] [place] [address] Mary Dumont, CHELO [address] [facility] [address] [place] [address] Health Maintenance Due Date Last Done Comments [...] Influenza Adult Completed 07/30/2024, 10/03/2023 PHQ-2 (Physician [place]) Completed 07/30/2024 HPV Vaccines Aged Out No [...] XR CHEST PA+LAT STAT 08/15/2024 10:32 AM CRANE HOOKER Subacute cough COLLECT.CAPILLARY (FNGR,HEEL,EAR) Routine 08/15/2024 10:15 AM CRANE HOOKER Elevated glucose HEMOGLOBIN, GLYCOSYLATED Routine 08/15/2024 Elevated glucose COLLECTION VENOUS BLOOD VENIPUNCTURE Routine 08/06/2024 8:46 AM CRANE HOOKER Anemia, unspecified type Screening for endocrine, metabolic and immunity disorder Screening for lipid disorders Annual physical exam CBC W/DIFF AUTOMATED Routine 08/06/2024 8:45 AM CRANE HOOKER Anemia, unspecified type Screening for endocrine, metabolic and immunity disorder Screening for lipid disorders Annual physical exam VITAMIN B-12 Routine 08/06/2024 8:45 AM CRANE HOOKER Anemia, unspecified type Screening for endocrine, metabolic and immunity disorder Screening for lipid disorders Annual physical exam RETICULOCYTE CT, AUTO Routine 08/06/2024 8:45 AM CRANE HOOKER Anemia, unspecified type Screening for endocrine, metabolic and immunity disorder Screening for lipid disorders Annual physical exam HAPTOGLOBIN, QUANT Routine 08/06/2024 8: 45 AM CRANE HOOKER Anemia, unspecified type Screening for endocrine, metabolic and immunity disorder Screening for lipid disorders Annual physical exam FERRITIN Routine 08/06/2024 8:45 AM CRANE HOOKER Anemia, unspecified type Screening for endocrine, metabolic and immunity disorder Screening for lipid disorders Annual physical exam IRON SAT PANEL (IRON,IBC,%SAT) Routine 08/06/2024 8:45 AM CRANE HOOKER Anemia, unspecified type Screening for endocrine, metabolic and immunity disorder Screening for lipid disorders Annual physical exam TSH W/REFLEX Routine 08/06/2024 8:45 AM CRANE HOOKER Anemia, unspecified type Screening for endocrine, metabolic and immunity disorder Screening for lipid disorders Annual physical exam COMPREHENSIVE METABOLIC PANEL Routine 08/06/2024 8:45 AM CRANE HOOKER Anemia, unspecified type Screening for endocrine, metabolic and immunity disorder Screening for lipid disorders Annual physical exam LIPID PANEL Routine 08/06/2024 8:45 AM CRANE HOOKER Anemia, unspecified type Screening for endocrine, metabolic and immunity disorder Screening for lipid disorders Annual physical exam SOLUBLE TRANSFERRIN RECEPTOR Routine 08/06/2024 8:31 AM CRANE HOOKER Anemia, unspecified type Screening for endocrine, metabolic and immunity disorder FOLIC ACID SERUM Routine 08/06/2024 8:31 AM CRANE HOOKER Anemia, unspecified type Screening for endocrine, metabolic and immunity disorder Screening for lipid disorders Annual physical exam LDH, LACTATE DEHYDROGENASE Routine 08/06/2024 8:31 AM CRANE HOOKER Anemia, unspecified type Screening for endocrine, metabolic [...] * XR CHEST PA+LAT (08/15/2024 10:32 AM CRANE HOOKER) Anatomical Region Laterality Modality Chest Radiographic Shaye ging 08/15/2024 10:3 5 AM CRANE HOOKER Impressions 08/15/2024 10:36 AM CRANE HOOKER IMPRESSION: 1. No radiographic evidence of active chest disease. 2. Potential hiatal hernia. Ordered By: EMILY JADE Interpreted By: Toi Vazquez MD, 08/15/2024 10:35 AM Narrative 08/15/2024 10:36 AM CRANE HOOKER [facility] Family and Internal Medicine - [address] [address] Examination: XR CHEST PA+LAT Exam time: 08/15/2024 [...] Procedure Note Toi Vazquez MD - 08/15/2024 [facility] [place] [address] Examination: XR CHEST PA+LAT Exam time: 08/15/2024 [...] (BACK OFFICE) (08/15/2024) HGB A1C 6.2(A) % [facility] 08/15/2024 Emily Jade DO LABORATORY [place] [address], [place] * TSH W/REFLEX (08/06/2024 8:45 AM CRANE HOOKER) TSH 1.455 0.358 - 3.740 uIU/ML 08/06/2024 5:23 PM CRANE HOOKER [facility] 08/06/2024 8:45 AM CRANE HOOKER Emily Jade DO LABORATORY Final Re sult Performing Organization Address [facility] Co de Phone Number [facility] [address] [place] [address], * IRON SAT PANEL (IRON,IBC,%SAT) (08/06/2024 8:45 AM CRANE HOOKER) IRON 107 65 - 175 MCG/DL 08/06/2024 5:23 PM CRANE HOOKER [facility] IRON BINDING CAPACITY 318 250 - 450 MCG/DL 08/06/2024 5:23 PM CRANE HOOKER [facility] IRON SATURATION 34 % 5:23 PM CRANE HOOKER [facility] Comment:REFERENCE RANGE NOT ESTABLISHED 08/06/2024 8:45 AM CRANE HOOKER Emily Jade LABORATORY Final Re sult Performing Organization Address [facility] Co de Phone Number [address] [address], [place] [phone] * VITAMIN B-12 (08/06/2024 8:45 AM CRANE HOOKER) VITAMIN B12 S/P/B 353 193 - 986 PG/ML 08/06/2024 5:23 PM CRANE HOOKER [facility] 08/06/2024 8:45 AM CRANE HOOKER Emily Jade LABORATORY Final Re sult Performing Organization Address City/[facility] Co de Phone Number [address] [address], [place] [phone] * RETICULOCYTE CT, AUTO (08/06/2024 8:45 AM CRANE HOOKER) RETICULOCYTE COUNT 2.0 0.7 - 2.3 % 08/06/2024 5:24 PM CRANE HOOKER [facility] ABSOLUTE RETICULOCYTE 0.10 0.03 - 0.11 x10'6/uL 08/06/2024 5:24 PM CRANE HOOKER [facility] IMMATURE RETIC FRACTION 11.5 2.3 - 13.4 % 08/06/2024 5:24 PM CRANE HOOKER [facility] RETIC HGB 34.5 28.0 - 35.0 PG 08/06/2024 5:24 PM CRANE HOOKER [facility] 08/06/2024 8:45 AM CRANE HOOKER Emily Jade LABORATORY Final Re sult Performing Organization Address [facility] Co de Phone Number [facility] [address] [place] [address], [place] [phone] * (ABNORMAL) HAPTOGLOBIN, QUANT (08/06/2024 8:45 AM CRANE HOOKER) HAPTOGLOBIN 269.0(H) 30.0 - 200.0 MG/DL 08/06/2024 5:37 PM CRANE HOOKER [facility] 08/06/2024 8:45 AM CRANE HOOKER Emily Jade LABORATORY Final Re sult Performing Organization Address [facility] Co de Phone Number [facility] [address] [place] [address], [place] [phone] * (ABNORMAL) COMPREHENSIVE METABOLIC PANEL (08/06/2024 8:45 AM CRANE HOOKER) SODIUM S/P/B 135(L) 136 - 145 MMOL/L 08/06/2024 5:23 PM CRANE HOOKER -[facility] POTASSIUM S/P/B 4.3 3.5 - 5.1 MMOL/L 08/06/2024 5:23 PM CRANE HOOKER [facility] CHLORIDE S/P/B 101 98 - 107 MMOL/L 08/06/2024 5:23 PM [facility] CO2 25.6 21 - 32 MMOL/L 08/06/2024 5:23 PM [facility] GLUCOSE 117(H) 70 - 99 MG/DL 08/06/2024 5:23 PM [facility] BUN 9 7 - 18 MG/DL 08/06/2024 5:23 PM [facility] CREATININE S/P/B 0.98 0.70 - 1.30 MG/DL 08/06/2024 5:23 PM [facility] CALCIUM S/P/B 8.5 8.4 - 10.5 MG/DL 08/06/2024 5:23 PM [facility] BILIRUBIN TOTAL S/P/B 0.7 0.2 - 1.0 MG/DL 08/06/2024 5:23 PM [facility] ALKALINE PHOSPHATASE S/P/B 102 45 - 115 U/L 08/06/2024 5:23 PM [facility] AST 64(H) 15 - 37 U/L 08/06/2024 5:23 PM [facility] ALT 132(H) 16 - 63 U/L 08/06/2024 5:23 PM [facility] TOTAL PROTEIN S/P/B 6.8 6.4 - 8.2 G/DL 08/06/2024 5:23 PM [facility] ALBUMIN S/P/B 3.7 3.4 - 5.0 G/DL 08/06/2024 5:23 PM [facility] ANION GAP 8.4 5 - 15 MMOL/L 08/06/2024 5:23 PM [facility] Comment:REFERENCE RANGE NOT ESTABLISHED OSMOLALITY (CALC) 280 MOSM/KG 025 5:23 PM [facility] Comment:REFERENCE RANGE NOT ESTABLISHED GFR ESTIMATE >90 >90 ML/MIN/1. 73 M2 08/06/2024 5:23 PM [facility] GFR NOTES GFR REFERENCE S: 08/06/2024 5:23 PM [facility] Comment: THE ESTIMATED GFR IS CALCULATED USING [...] FAILURE: <15 ml/min/1.73 m2 08/06/2024 8:45 AM CRANE HOOKER us Emily Jade DO LABORATORY Final Re sult [facility] [address] [place] [address], * LIPID PANEL (08/06/2024 8:45 AM CRANE HOOKER) CHOLESTEROL 157 <200 MG/DL 08/06/2024 5:23 PM [facility] TRIGLYCERIDES 127 <150 MG/DL 08/06/2024 5:23 PM [facility] HDL 42 >40 MG/DL 08/06/2024 5:23 PM [facility] LDL-C 90 <100 MG/DL 08/06/2024 5:23 PM [facility] VLDL CALCULATION 25 5 - 28 MG/DL 08/06/2024 5:23 PM [facility] CHOL/HDL RATIO 3.7 0.0 - 4.0 08/06/2024 5:23 PM CRANE HOOKER [facility] LDL/HDL 2.1 0.41 - 2.13 08/06/2024 5:23 PM CRANE HOOKER [facility] NON HDL CHOLESTEROL 115 <140 MG/DL 08/06/2024 5:23 PM CRANE HOOKER [facility] 08/06/2024 8:45 AM CRANE HOOKER Emily Jade DO LABORATORY Final Re [facility] [address] [place] [address], * (ABNORMAL) CBC W/DIFF AUTOMATED (08/06/2024 8:45 AM CRANE HOOKER) WBC 7.38 4.00 - 10.80 x10'3/uL 08/06/2024 2:56 PM CRANE HOOKER [facility] RBC 4.95 4.50 - 6.10 x10'6/uL 08/06/2024 2:56 PM [facility] HGB 15.4 13.0 - 18.0 G/DL 08/06/2024 2:56 PM [facility] HCT 45.8 37.0 - 52.0 % 08/06/2024 2:56 PM [facility] MCV 92.5 78.0 - 100.0 FL 08/06/2024 2:56 PM [facility] MCH 31.1(H) 27.0 - 31.0 PG 08/06/2024 2:56 PM [facility] MCHC 33.6 33.0 - 36.0 G/DL 08/06/2024 2:56 PM [facility] RDW 12.9 11.5 - 14.5 % 08/06/2024 2:56 PM [facility] PLT 305 150 - 350 x10'3/uL 08/06/2024 2:56 PM [facility] MPV 9.3 7.4 - 10.4 FL 08/06/2024 2:56 PM [facility] DIFFERENTIAL TYPE AUTOMATED DIFFERENTIAL 08/06/2024 2:56 PM [facility] NEUTROPHILS % 66.1 % 08/06/2024 2:56 PM [facility] LYMPHOCYTES % 21.1 % 08/06/2024 2:56 PM [facility] MONOCYTES % 9.5 % 08/06/2024 2:56 PM [facility] EOSINOPHILS % 2.4 % 08/06/2024 2:56 PM [facility] BASOPHILS % 0.4 % 08/06/2024 2:56 PM [facility] IMMATURE GRANS % 0.5 % 08/06/2024 2:56 PM [facility] ABS. NEUTROPHILS 4.87 1.60 - 8.30 x10'3/uL 08/06/2024 2:56 PM [facility] ABS. LYMPHOCYTES 1.56 0.80 - 4.70 x10'3/uL 08/06/2024 2:56 PM [facility] ABS. MONOCYTES 0.70 0.00 - 1.50 x10'3/uL 08/06/2024 2:56 PM [facility] ABS. EOSINOPHILS 0.18 0.00 - 0.40 x10'3/uL 08/06/2024 2:56 PM [facility] ABS. BASOPHILS 0.03 0.00 - 0.20 x10'3/uL 08/06/2024 2:56 PM [facility] ABS. IMMATURE GRANULOCYTES 0.04(H) 0.00 - 0.03 x10'3/uL 08/06/2024 2:56 PM [facility] 08/06/2024 8:45 AM CRANE HOOKER us Emily Jade DO LABORATORY Final Re sult Performing Organization Address [facility] Co de Phone Number [facility] [address] [place] [address], [place] [phone] * FERRITIN (08/06/2024 8:45 AM CRANE HOOKER) FERRITIN 199.0 26 - 388 NG/ML 08/06/2024 5:23 PM CRANE HOOKER [facility] 08/06/2024 8:45 AM CRANE HOOKER Emily Jade DO LABORATORY Final Re sult Performing Organization Address [facility] de Phone Number [id number] [place] [address], [place] [phone] * SOLUBLE TRANSFERRIN RECEPTOR (08/06/2024 8:31 AM CRANE HOOKER) SOLUBLE TRANSFERRIN RECEPTOR 1.70 0.76 - 1.76 mg/L [facility] 08/06/2024 8:31 AM CRANE HOOKER 08/07/2024 6:06 AM CRANE HOOKER Narrative Resulting Agency Comment Performing Organization Information: Site ID: [id number] Name: [facility], Address: [address] [place] [id number] Director: Radha Kellogg MD,PhD,VALDO us Emily Jade DO LABORATORY Final Re sult Performing Organization Address [facility] de Phone Number [facility] [address] [address], * LDH, LACTATE DEHYDROGENASE (08/06/2024 8:31 AM CRANE HOOKER) Pathologist [facility] LDH 213 87 - 241 UNITS/L 08/06/2024 5:34 PM CRANE HOOKER [facility] 08/06/2024 8:31 AM CRANE HOOKER Emily Jade DO LABORATORY Final Re sult Performing Organization Address City/[facility]/ZIP Co de Phone Number [facility] [address] [place] [address], [place] [phone] * FOLIC ACID SERUM (08/06/2024 8:31 AM CRANE HOOKER) [facility] FOLATE 16.3 8.6 - 58.9 NG/ML 08/06/2024 4:06 PM CRANE HOOKER [facility] 08/06/2024 8:31 AM CRANE HOOKER Emily Jade DO LABORATORY Final Re sult Performing Organization Address [facility] Co de Phone Number [facility] [address] [place] [address], * CT GENERIC (06/28/2024) Anatomical Region Laterality Modality Other 06/28/2024 [facility] Scanned SCANNING Final Resu lt * OUTSIDE LAB (SCAN ORDER) (06/28/2024) Only the most recent of3 resultswithin the time period is included. 06/28/2024 [facility] Scanned SCANNING Final Resu lt * HEPATITIS C ANTIBODY (11/21/2021 7:56 AM CDT) [facility] HEPATITIS C AB NON-REACTI VE NON-REACT [place] 11/21/2021 6:32 PM CDT [facility] Comment: ANTIBODIES TO HCV NOT DETECTED. DOES NOT EXCLUDE THE POSSIBILITY OF EXPOSURE TO HCV. 11/21/2021 7:56 AM CDT us Emily Jade DO LABORATORY Final Re sult [facility] [address] [place] [address], [phone] * COLONOSCOPY GENERIC (SCAN ORDER) (10/18/2018) 10/18/2018 [facility] Scanned SCANNING Final Resu lt from Last 3 Months or Most Recently Relevant to Health Maintenance Insurance [facility] Care Teams Rug Hooker Hand Relationship Specialty Start Date End Date Emily Jade DO [address] [place], [place] [phone] PCP - General FAMILY PRACTICE 05/09/19
[2024-08-25 13:00] LABS: Influenza A QL RT-PCR Negative (Negative); Influenza B QL RT-PCR Negative (Negative); RSV RNA, RT-PCR Negative (Negative); SARS-CoV-2 RNA PCR Negative (Negative)
[2024-08-25] MEDS: AZITHROMYCIN 500 MG/NS 250 ML 500 MG/250 ML BAG 250 MG IVPB (14:05)
--- NOTE | 2024-08-25 14:20 | PM.IMHP ---
H&P: HPI History of Present Illness Date/Time: 08/25/24 14:20 Chief Complaint: Vomiting blood. Narrative: This is a very pleasant 43-year-old male who presented to the emergency department via private vehicle with complaints of ?vomiting blood.? The patient provides the following history. He gives a several month history of intermittent abdominal pain, nausea, and vomiting which seems to happen more at night. He endorses GERD symptoms and states that sometimes he wakes up at night to stomach contents and occasional regurgitated food in the back of his throat. Sometimes he vomits all night and he tells me that he when be surprised if he aspirates on occasion during these episodes as he occasionally has a productive cough which reportedly looks similar to his emesis. He was started on a PPI and more recently sucralfate which does not seem to be helping. He takes Tums occasionally with mild relief. The last 3 days he has been vomiting more frequently and reports that it looks like coffee grounds. He also reports that his stool is dark and sticky and has a strong odor. He drinks caffeine daily but denies significant alcohol use. Very rarely will he take an NSAID. He denies syncope, near syncope, fever, chills, sweats, sinus congestion, sore throat, chest pain, pleuritic pain, and hematochezia. No known history of peptic ulcers. In the ED: Vital signs were stable on arrival. Labs were significant for WBC count of 14.2, hemoglobin 14.3, D-dimer 0.55, anion gap 14, BUN 6, creatinine 0.64, glucose 153. CT of the chest, abdomen, and pelvis showed no pulmonary embolism, diffuse hepatic steatosis, moderate size sliding hiatal hernia, and small lung volumes with diffuse lung disease consistent with atypical pneumonia versus mild pulmonary edema versus atelectasis. He received pantoprazole 80 mg IV, ondansetron 4 mg IV, azithromycin 500 mg IV, and ceftriaxone 1 g IV. He is being admitted in this setting for further treatment and GI consultation. Review of Systems Review of Systems: 12 systems were reviewed and are negative except for as per HPI. [facility] Past Medical History Medical History (Updated 08/25/24 @ 20:01 by Ana Maria Guerra PA-C) Anxiety Hepatic steatosis on CT scan in 08/2024 Hiatal hernia moderate-sized sliding hiatal hernia Bipolar disorder Surgical History Surgical History (Updated 08/25/24 @ 20:01 by Ana Maria Guerra PA-C) History of lumbar fusion Social History Social History (Updated 08/25/24 @ 20:05 by Ana Maria Guerra PA-C) Social History: Surrogate medical decision maker: Jacque Rider, spouse. Code status: Full code. Smoking status: Never smoker Alcohol intake: never Substance use: never Do You Feel Safe in your Home?: Yes Lack of Transportation: YES Lack of Food: Never True Current Housing: I Have Housing Concerned About Future Housing: No Difficulty Paying Gas/Electric Bills: No Difficulty Paying for Meds: No Currently Unemployed: No Education: Trade/Vocational Certificate Difficulty w/ Childcare or Family Care: No Additional living arrangements comments: Lives with and 4 children. 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 Spiritual care concerns: No Meds Home Medications and Allergies Home Medications ?Medication ?Instructions ?Recorded ?Confirmed ?Type doxycycline hyclate 100 mg tablet 100 mg PO BID #10 tabs 06/28/24 08/25/24 Rx metoclopramide HCl 10 mg tablet 10 mg PO Q6H PRN nausea and 06/28/24 08/25/24 Rx (Reglan) vomiting #20 tabs bupropion HCl 300 mg 24 hr tablet, 300 mg PO DAILY 08/25/24 08/25/24 History extended release cariprazine 3 mg capsule (Vraylar) 3 mg PO DAILY 08/25/24 08/25/24 History dexmethylphenidate 15 mg 15 mg PO DAILY 08/25/24 08/25/24 History capsule,extended release [id number] eszopiclone 1 mg tablet 1 mg PO HS 08/25/24 08/25/24 History lithium carbonate 450 mg 450 mg PO HS 08/25/24 08/25/24 History tablet,extended release omeprazole 40 mg capsule,delayed 40 mg PO BID 08/25/24 08/25/24 History release propranolol 120 mg capsule,24 120 mg PO Q24H 08/25/24 08/25/24 History hr,extended release quetiapine 50 mg tablet 50 mg PO HS 08/25/24 08/25/24 History sucralfate 1 gram tablet 1 g PO TIDWM 08/25/24 08/25/24 History venlafaxine 75 mg capsule,extended 75 mg PO DAILY 08/25/24 08/25/24 History release 24 hr Allergies Allergy/AdvReac Type Severity Reaction Status Date / Time steriod AdvReac Intermediate Agitated Uncoded 08/25/24 10:30 Vital Signs Vital Signs - 24 hr 08/25/24 09:25 08/25/24 10:30 08/25/24 11:49 Temperature 98 F Pulse Rate 96 101 H 100 Respiratory Rate 15 20 24 H Blood Pressure 154/93 H 153/98 H 133/99 H Pulse Oximetry 98 98 96 Oxygen Delivery Room Air 08/25/24 12:00 08/25/24 14:06 Temperature Pulse Rate 101 H 96 Respiratory Rate 16 15 Blood Pressure 128/81 Pulse Oximetry 94 97 Oxygen Delivery Exam Narrative: General: Nontoxic-appearing male in the semi-Guerrero position in bed. Weight: 126.6 kg. BMI: 35.8. HEENT: Normocephalic, atraumatic. PERRL, EOMI. Sclera anicteric. Oral mucosa moist. Neck: Supple. Respiratory: Respirations are nonlabored he is speaking in full sentences. Lung sounds are a bit coarse at the bases. Cardiovascular: Regular rate and rhythm with S1-S2. Gastrointestinal: Abdomen is soft and nondistended with positive bowel sounds. He is a bit tender to deeper palpation epigastric region. No guarding or rebound tenderness. Skin: Warm and dry. No rash or lesions on limited exam. Extremities: No cyanosis, clubbing, or edema. Radial and pedal pulses intact. Neurological: Alert. Cranial nerves 2-12 are grossly intact. No gross focal deficits to casual conversation. Psychiatric: Pleasant and cooperative with normal mood and affect. Judgment and insight intact. H&P: Results Labs Labs: Short CBC 08/25/24 Range/Units 10:34 WBC 14.2 H (4.5-10.0) K/mm3 Hgb 14.3 (14.0-18.0) g/dL Hct 42.0 (42.0-52.0) % Plt Count 337 (150-375) k/mm3 [facility] 08/25/24 10:35 Sodium 141 Potassium 3.8 Chloride 104 Carbon Dioxide 23 BUN 6 L Creatinine 0.64 L Glucose 153 H Calcium 9.1 Liver Function 08/25/24 Range/Units 10:35 Total Bilirubin 1.0 (0.2-1.3) mg/dL AST 37 (17-59) U/L ALT 80 H (6-50) U/L Alkaline Phosphatase 95 (38-126) U/L Albumin 4.1 (3.5-5.1) g/dL Imaging Chest/Abdomen/Pelvis CTA 08/25/24 11:48 IMPRESSION: 1. Small lung volumes with diffuse lung disease, consistent with atypical pneumonia versus mild pulmonary edema versus atelectasis. 2. Moderate-sized sliding hiatal hernia. 3. Diffuse hepatic steatosis. 4. No pulmonary embolus. Assessment and Plan Assessment and plan (1) Coffee ground emesis: Code(s): K92.0 - Hematemesis Status: Acute (2) Hiatal hernia: Code(s): K44.9 - Diaphragmatic hernia without obstruction or gangrene Status: Acute (3) Pneumonia: Code(s): J18.9 - Pneumonia, unspecified organism Status: Inactive (4) Bipolar disorder: Code(s): F31.9 - Bipolar disorder, unspecified Status: Acute Plan The patient presented to the emergency department for evaluation of coffee-ground emesis, dark stools, and ongoing GI issues as detailed in HPI. Labs, imaging, EKG, and all reports were personally reviewed. He may very well have underlying esophagitis for gastritis with a differential diagnosis to include possible peptic ulcers or even [place]-A[place]vedo tear given reportedly violent emesis. Continue pantoprazole. He will be NPO after midnight for possible EGD tomorrow. Chest x-ray shows findings of pneumonia, possible aspiration pneumonitis, he has been started on amoxicillin-clavulanic acid and doxycycline. Attempt sputum for culture. Vital signs were reviewed and they are stable. His home medications will be reviewed and resumed as appropriate. Findings and treatment plan were discussed with the patient. Questions were solicited and answered to satisfaction. The patient's medical management will be taken over by the hospitalist team in a.m. Quality VTE Prophylaxis VTE prophylaxis: mechanical ordered If No VTE Prophylaxis Answer both mechanical and pharmacologic: Reason no pharmacologic proph: medical contraindication ( vomiting blood ) The patient has been admitted under observation status. Hospitalist MIPS Advance Care Plan I have confirmed that the patient's Advanced Care Plan is present, code status is documented, or surrogate decision maker is listed in patient medical record.: Yes Medication Reconciliation I have utilized all available resources to obtain, update and review the patients current medications (includes all prescriptions, OTC, herbals, cannabis, and nutritional supplements).: Yes
--- NOTE | 2024-08-25 16:53 | ADMGEN ---
This patient, David Rider, was admitted to 2 Medical Room 241-01. Patient/family oriented to hospital policies and general routines including ID bracelet, bed and alarms, visiting hours, pain management, procedures, bathroom and other care routines, personal items, smoking policy, room service/diet, and visiting hours. Information on how to activate the Rapid Response Team has been discussed. Patient/Family are encouraged to report perceived risks to care and to ask questions if they do not understand what they are told or what they should do.
[2024-08-25] MEDS: PANTOPRAZOLE SODIUM IV 40 MG VIAL IV PUSH (20:42)
[2024-08-25] MEDS: guaiFENesin 12 HR 600 MG TABCR 1200 MG PO (20:44)
[2024-08-25] MEDS: PROPRANOLOL HCL 60 MG CAPSULE CR 120 MG PO (20:44)
[2024-08-25] MEDS: SUCRALFATE 1 GM TABLET PO (20:45)
[2024-08-25] MEDS: DOXYCYCLINE HYCLATE 100 MG TABLET PO (20:45)
[2024-08-25] MEDS: AMOXICILLIN/CLAVULANATE K 875-125 MG TAB 1 TABLET PO (20:45)
[2024-08-25] MEDS: QUEtiapine FUMARATE 25 MG TABLET 50 MG PO (20:45)
[2024-08-25 21:44] LABS: Hematocrit 37.3 % (42.0-52.0); Hemoglobin 12.6 g/dL (14.0-18.0)
[2024-08-25 22:47] LABS: Lithium < 0.2 mmol/L (0.6-1.2)
[2024-08-25] MEDS: LITHIUM CARBONATE 300 MG CAPSULE PO (23:08)
[2024-08-26] VITALS (8 sets, daily range): BP systolic 86–115; BP diastolic 59–72; PULSE 72–76; RESP 18–26; TEMP 36.3–36.6; O2SAT 93–97
[2024-08-26 00:25] LABS: MRSA (PCR) NOT DETECTED (NOT DETECTE)
[2024-08-26 06:05] LABS: Hematocrit 38.2 % (42.0-52.0); Hemoglobin 12.5 g/dL (14.0-18.0); Mean Corpuscular HGB Conc 32.7 g/dl (32-36); Mean Corpuscular Hemoglobin 31.2 pg (26-34); Mean Corpuscular Volume 95.3 fl (80-100); Mean Platelet Volume 8.8 fl (7.4-10.4); Platelet Count Result 298 k/mm3 (150-375); Red Blood Count 4.01 M/mm3 (4.6-6.20); Red Cell Distribution Width 13.1 % (11.5-14.5); White Blood Count 10.1 K/mm3 (4.5-10.0)
[2024-08-26 06:21] LABS: Anion Gap 7 mmol/L (4-12); Blood Urea Nitrogen 8 mg/dL (9-20); Calcium 8.7 mg/dL (8.4-10.2); Carbon Dioxide 27 mmol/L (22-30); Chloride 105 mmol/L (98-107); Estimated CRCL calculation 153 ml/min; Estimated Glomerular Filt Rate > 60; Glucose 97 mg/dL (65-110); Magnesium 2.3 mg/dL (1.6-2.3); Potassium 4.1 mmol/L (3.4-5.0); Sodium 139 mmol/L (137-145)
--- NOTE | 2024-08-26 07:52 | PM.IMPN ---
Progress Note: A&P Assessment and Plan (1) Coffee ground emesis: Code(s): K92.0 - Hematemesis Status: Acute Assessment and Plan: Patient presented for coffee-ground emesis, dark stools. Ddx includes gastric/duodnal ulcer, mayte araujo tear, other --GI consulted, appreciate recommendations --EGD completed, showed a single nonbleeding lesion --Continue IV PPI BID --Holding oral meds for procedure per GI recs, changed antibiotics to IV (2) Hiatal hernia: Code(s): K44.9 - Diaphragmatic hernia without obstruction or gangrene Status: Acute Assessment and Plan: Hiatal hernia and Faisal lesion noted on EGD --Continue PPI (3) Pneumonia: Code(s): J18.9 - Pneumonia, unspecified organism Status: Inactive Assessment and Plan: CT 08/25 Small lung volumes with diffuse lung disease, consistent with atypical pneumonia versus mild pulmonary edema versus atelectasis. Also vomiting so at risk for aspiration/aspiration pneumonitis Flu/COVID/RSV negative --Started on Augmentin/Azithromycin 500mg IV. Changed to PO doxy. Check EKG for Qtc with seroquel, bupropion, and effexor --Changed Augmentin to Unasyn since NPO. Stop doxy and continue IV azithromycin for 2 more doses since QTc normal, QTc 454 --Urine for legionella pending --Sputum culture pending (4) Bipolar disorder: Code(s): F31.9 - Bipolar disorder, unspecified Status: Acute Assessment and Plan: Takes lithium 150mg/300mg hs --Holding AM dose of lithium since NPO, resume Plan Discharge pending GI recs and increased activity. If short of breath with activity, will need walking O2 Time Spent With Patient Time: 57 minutes Subjective Date/time seen: 08/26/24 07:52 Interval history: EGD done today, showed a faisal lesion, nonbleeding. Follow up GI recs for discharge Productive cough EKG showed a QTc 454 Review of Systems Review of Systems: 12 systems were reviewed and are negative except for as per HPI. Exam Narrative: General: Nontoxic-appearing male in the semi-Guerrero position in bed. Weight: 126.6 kg. BMI: 35.8. HEENT: Normocephalic, atraumatic. PERRL, EOMI. Sclera anicteric. Oral mucosa moist. Neck: Supple. Respiratory: Respirations are nonlabored he is speaking in full sentences. Lung sounds coarse posterior bases Cardiovascular: Regular rate and rhythm with S1-S2. Gastrointestinal: Abdomen is soft and nondistended with positive bowel sounds. He is a bit tender to deeper palpation epigastric region. No guarding or rebound tenderness. Skin: Warm and dry. No rash or lesions on limited exam. Extremities: No cyanosis, clubbing, or edema. Radial and pedal pulses intact. Neurological: Alert. Cranial nerves 2-12 are grossly intact. No gross focal deficits to casual conversation. Psychiatric: Pleasant and cooperative with normal mood and affect. Judgment and insight intact. Objective Data Vital Signs Vital Signs: Vital Signs - 24 hr 08/25/24 09:25 08/25/24 10:30 08/25/24 11:49 Temperature 98 F Pulse Rate 96 101 H 100 Respiratory Rate 15 20 24 H Blood Pressure 154/93 H 153/98 H 133/99 H Pulse Oximetry 98 98 96 Oxygen Delivery Room Air 08/25/24 12:00 08/25/24 14:06 08/25/24 17:13 Temperature Pulse Rate 101 H 96 Respiratory Rate 16 15 Blood Pressure 128/81 Pulse Oximetry 94 97 Oxygen Delivery Room Air 08/25/24 20:00 08/25/24 20:23 08/25/24 20:44 Temperature 98.2 F Pulse Rate 98 98 Respiratory Rate 20 Blood Pressure 137/77 Pulse Oximetry 94 Oxygen Delivery Room Air 08/26/24 03:42 Temperature 97.9 F Pulse Rate 74 Respiratory Rate 20 Blood Pressure 107/68 Pulse Oximetry 97 Oxygen Delivery Intake/Output Intake/Output: Intake & Output 08/23/24 08/24/24 08/25/24 08/26/24 23:59 23:59 23:59 23:59 Intake Total 1342 0 Balance 1342 0 Meds/Results Medications: Active Medications Generic Name Dose Route Start Last Admin Trade Name Freq PRN Reason Stop Dose Admin Acetaminophen 650 mg 08/25/24 20:13 Acetaminophen 325 Mg Tablet PO Q6H PRN Mild Pain (1-3) or Fever Albuterol 2 puff 08/25/24 20:13 Albuterol Sulfate (*Sp) Aerosol 1 Puff INHALATION QIDRT PRN Shortness Of Breath Amoxicillin/Clavulanate Potassium 1 tablet 08/25/24 21:00 08/25/24 20:45 Amoxicillin/Clavulanate K 875-125 Mg Tab PO 1 tablet Q12HR PRACHI Administration Bupropion HCl 300 mg 08/26/24 09:00 Bupropion Hcl Xl (24 Hr) 150 Mg Tabcr PO DAILY PRACHI Guaifenesin 1,200 mg 08/25/24 21:00 08/25/24 20:44 Guaifenesin 12 Hr 600 Mg Tabcr PO 1,200 mg Q12HR PRACHI Administration Ampicillin Sodium/Sulbactam Sodium 3 gm in 100 mls @ 200 mls/hr 08/26/24 07:50 Unasyn 3 Gm/Ns 100 Ml IVPB Q6H PRACHI [place] Carbonate 150 mg 08/26/24 09:00 [place] Carbonate 150 Mg Capsule PO QAM PRACHI [place] Carbonate 300 mg 08/25/24 23:00 08/25/24 23:08 [place] Carbonate 300 Mg Capsule PO 300 mg HS PRACHI Administration Miscellaneous Information 1 each 08/26/24 00:01 Vraylar Is Nonform; Can Pt Use From Home? XX 09/25/24 00:00 [facility] Miscellaneous Information 1 each 08/26/24 00:01 Dimethylphenidate Is Nonform; Can Pt Use From Home? XX 09/25/24 00:00 [facility] Non-Formulary Medication 3 mg 08/26/24 09:00 Cariprazine [Vraylar] PO 09/25/24 08:59 DAILY [facility] Non-Formulary Medication 15 mg 08/26/24 09:00 Dexmethylphenidate PO 09/25/24 08:59 DAILY [facility] Pantoprazole Sodium 40 mg 08/25/24 21:00 08/25/24 20:42 Pantoprazole Sodium Iv 40 Mg Vial IV PUSH 40 mg Q12HR PRACHI Administration Propranolol HCl 120 mg 08/25/24 21:00 08/25/24 20:44 Propranolol Hcl 60 Mg Capsule Cr PO 120 mg Q24H PRACHI Administration Quetiapine Fumarate 50 mg 08/25/24 21:00 08/25/24 20:45 Quetiapine Fumarate 25 Mg Tablet PO 50 mg HS PRACHI Administration Sucralfate 1 gm 08/25/24 20:25 08/25/24 20:45 Sucralfate 1 Gm Tablet PO 1 gm TIDWM PRACHI Administration Venlafaxine HCl 75 mg 08/26/24 09:00 Venlafaxine Hcl Xr 75 Mg Cap.Er.24h PO DAILY [facility] Radiology Results: ITS Impressions Chest/Abdomen/Pelvis CTA 08/25/24 11:48 IMPRESSION: 1. Small lung volumes with diffuse lung disease, consistent with atypical pneumonia versus mild pulmonary edema versus atelectasis. 2. Moderate-sized sliding hiatal hernia. 3. Diffuse hepatic steatosis. 4. No pulmonary embolus. Labs Labs: Laboratory Results - last 24 hr 08/25/24 08/25/24 08/25/24 10:34 10:35 12:20 WBC 14.2 H RBC 4.49 L Hgb 14.3 Hct 42.0 MCV 93.5 MCH 31.8 MCHC 34.0 RDW 13.1 Plt Count 337 MPV 8.7 Immature Gran % (Auto) 0.3 Neut % (Auto) 74.7 H Lymph % (Auto) 17.6 L [place] % (Auto) 5.7 Eos % (Auto) 1.4 Baso % (Auto) 0.3 Lymph # (Auto) 2.50 [place] # (Auto) 0.8 H Eos # (Auto) 0.2 Baso # (Auto) 0.0 Abs Immat Gran (auto) 0.04 H Absolute Neuts (auto) 10.7 H Absolute Nucleated RBC 0.000 Nucleated RBC % 0.0 PT 13.1 INR 1.0 APTT 26.8 D-Dimer 0.55 H Sodium 141 Potassium 3.8 Chloride 104 Carbon Dioxide 23 Anion Gap 14 H BUN 6 L Creatinine 0.64 L Estim Creat Clear Calc 176 Estimated GFR > 60 Glucose 153 H Calcium 9.1 Magnesium Total Bilirubin 1.0 AST 37 ALT 80 H Alkaline Phosphatase 95 Total Protein 8.0 Albumin 4.1 Nasal MRSA (PCR) [place] Influenza A (RT-PCR) Negative Influenza B (RT-PCR) Negative RSV (RT-PCR) Negative SARS-CoV-2 RNA (RT-PCR) Negative Blood Type O Negative Antibody Screen Negative 08/25/24 08/25/24 08/26/24 21:23 23:10 05:22 WBC 10.1 H RBC 4.01 L Hgb 12.6 L 12.5 L Hct 37.3 L 38.2 L MCV 95.3 MCH 31.2 MCHC 32.7 RDW 13.1 Plt Count 298 MPV 8.8 Immature Gran % (Auto) Neut % (Auto) Lymph % (Auto) [place] % (Auto) Eos % (Auto) Baso % (Auto) Lymph # (Auto) [place] # (Auto) Eos # (Auto) Baso # (Auto) Abs Immat Gran (auto) Absolute Neuts (auto) Absolute Nucleated RBC Nucleated RBC % PT INR APTT D-Dimer Sodium 139 Potassium 4.1 Chloride 105 Carbon Dioxide 27 Anion Gap 7 BUN 8 L Creatinine 0.75 Estim Creat Clear Calc 153 Estimated GFR > 60 Glucose 97 Calcium 8.7 Magnesium 2.3 Total Bilirubin AST ALT Alkaline Phosphatase Total Protein Albumin Nasal MRSA (PCR) Not detected [place] < 0.2 L Influenza A (RT-PCR) Influenza B (RT-PCR) RSV (RT-PCR) SARS-CoV-2 RNA (RT-PCR) Blood Type Antibody Screen Quality VTE Prophylaxis VTE prophylaxis: mechanical ordered Hospitalist MIPS Advance Care Plan I have confirmed that the patient's Advanced Care Plan is present, code status is documented, or surrogate decision maker is listed in patient medical record.: Yes Medication Reconciliation I have utilized all available resources to obtain, update and review the patients current medications (includes all prescriptions, OTC, herbals, cannabis, and nutritional supplements).: Yes
--- NOTE | 2024-08-26 08:05 | ECG_ITS ---
Test Date: 2024-08-26 12:00:23 Measurements Intervals [place] Rate: 74 P: 19 OK: 144 QRS: 8 QRSD: 120 T: 4 QT: 408 QTc: 454 Interpretive Statements SINUS RHYTHM EARLY PRECORDIAL R/S TRANSITION BORDERLINE ST-T WAVE ABNORMALITY- INFERIOR LEADS BASELINE ARTIFACT- I, II, AVR, AVL, AVF BORDERLINE ECG No previous ECG available for comparison Electronically Signed On 08-26-2024 12:49:52 NEWSPAPER PUBLISHER by Matty Castañeda D.O.
[2024-08-26] MEDS: PANTOPRAZOLE SODIUM IV 40 MG VIAL IV PUSH ×2 (09:22→20:16)
[2024-08-26] MEDS: AMPICILLIN SULB 3 GM/NS 100 ML 3 GM/100 ML VIAL IVPB ×3 (09:22→18:52)
--- NOTE | 2024-08-26 10:04 | P.PNAN_ITS ---
Anes - Initial Pre Proc Eval Procedure: Operation Date: 08/26/24 16:00 Proposed Procedures p Esophagogastroduodenoscopy - Dewayne Wadsworth MD Date/Time: 08/26/24 10:04 Pre Op Diagnosis: Pneumonia, hematemesis Patient Data Age: 43 Gender: M Height: 1.88 m Weight: 128 kg Last Vital Signs Temp 97.9 F 08/26/24 03:42 Pulse 74 08/26/24 03:42 Resp 20 08/26/24 03:42 BP 107/68 08/26/24 03:42 Pulse Ox 97 08/26/24 03:42 O2 Del Method Room Air 08/25/24 20:00 Allergies Allergy/AdvReac Type Severity Reaction Status Date / Time steriod AdvReac Intermediate Agitated Uncoded 08/26/24 10:03 Home Medications ?Medication ?Instructions ?Recorded ?Confirmed ?Type doxycycline hyclate 100 mg tablet 100 mg PO BID #10 tabs 06/28/24 08/25/24 Rx metoclopramide HCl 10 mg tablet 10 mg PO Q6H PRN nausea and 06/28/24 08/25/24 Rx (Reglan) vomiting #20 tabs bupropion HCl 300 mg 24 hr tablet, 300 mg PO DAILY 08/25/24 08/25/24 History extended release cariprazine 3 mg capsule (Vraylar) 3 mg PO DAILY 08/25/24 08/25/24 History dexmethylphenidate 15 mg 15 mg PO DAILY 08/25/24 08/25/24 History capsule,extended release [id number] eszopiclone 1 mg tablet 1 mg PO HS 08/25/24 08/25/24 History lithium carbonate 450 mg 450 mg PO HS 08/25/24 08/25/24 History tablet,extended release omeprazole 40 mg capsule,delayed 40 mg PO BID 08/25/24 08/25/24 History release propranolol 120 mg capsule,24 120 mg PO Q24H 08/25/24 08/25/24 History hr,extended release quetiapine 50 mg tablet 50 mg PO HS 08/25/24 08/25/24 History sucralfate 1 gram tablet 1 g PO TIDWM 08/25/24 08/25/24 History venlafaxine 75 mg capsule,extended 75 mg PO DAILY 08/25/24 08/25/24 History release 24 hr Laboratory Tests 08/25/24 08/25/24 08/25/24 10:34 10:35 12:20 WBC 14.2 H K/mm3 (4.5-10.0) RBC 4.49 L M/mm3 (4.6-6.20) Hgb 14.3 g/dL (14.0-18.0) Hct 42.0 % (42.0-52.0) MCV 93.5 fl (80-100) MCH 31.8 pg (26-34) MCHC 34.0 g/dl (32-36) RDW 13.1 % (11.5-14.5) Plt Count 337 k/mm3 (150-375) MPV 8.7 fl (7.4-10.4) Immature Gran % (Auto) 0.3 % (0-0.5) Neut % (Auto) 74.7 H % (45.5-73.1) Lymph % (Auto) 17.6 L % (18.3-44.2) [place] % (Auto) 5.7 % (2.6-8.5) Eos % (Auto) 1.4 % (0-4.4) Baso % (Auto) 0.3 % (0.2-1.2) Lymph # (Auto) 2.50 K/mm3 (0.9-3.2) [place] # (Auto) 0.8 H K/mm3 (0.1-0.6) Eos # (Auto) 0.2 K/mm3 (0-0.3) Baso # (Auto) 0.0 K/mm3 (0.0-0.1) Abs Immat Gran (auto) 0.04 H K/mm3 (0.00-0.031) Absolute Neuts (auto) 10.7 H K/mm3 (1.3-6.7) Absolute Nucleated RBC 0.000 K/mm3 (0.0-0.012) Nucleated RBC % 0.0 % (0.0-0.2) PT 13.1 Seconds (11.1-14.7) INR 1.0 APTT 26.8 Seconds (22.3-36.8) D-Dimer 0.55 H ug/mL (<0.48) Sodium 141 mmol/L (137-145) Potassium 3.8 mmol/L (3.4-5.0) Chloride 104 mmol/L (98-107) Carbon Dioxide 23 mmol/L (22-30) Anion Gap 14 H mmol/L (4-12) BUN 6 L mg/dL (9-20) Creatinine 0.64 L mg/dL (0.7-1.3) Estim Creat Clear Calc 176 ml/min Estimated GFR > 60 (59 - ) Glucose 153 H mg/dL (65-110) Calcium 9.1 mg/dL (8.4-10.2) Magnesium Total Bilirubin 1.0 mg/dL (0.2-1.3) AST 37 U/L (17-59) ALT 80 H U/L (6-50) Alkaline Phosphatase 95 U/L (38-126) Total Protein 8.0 g/dL (6.3-8.2) Albumin 4.1 g/dL (3.5-5.1) Nasal MRSA (PCR) [place] Influenza A (RT-PCR) Negative (Negative) Influenza B (RT-PCR) Negative (Negative) Ur L.pneumophila Ag Mycoplasma pneumon IgM RSV (RT-PCR) Negative (Negative) SARS-CoV-2 RNA (RT-PCR) Negative (Negative) Urine Pneumococcal Ag Blood Type O Negative Antibody Screen Negative 08/25/24 08/25/24 08/26/24 21:23 23:10 03:55 WBC RBC Hgb 12.6 L g/dL (14.0-18.0) Hct 37.3 L % (42.0-52.0) MCV MCH MCHC RDW Plt Count MPV Immature Gran % (Auto) Neut % (Auto) Lymph % (Auto) [place] % (Auto) Eos % (Auto) Baso % (Auto) Lymph # (Auto) [place] # (Auto) Eos # (Auto) Baso # (Auto) Abs Immat Gran (auto) Absolute Neuts (auto) Absolute Nucleated RBC Nucleated RBC % PT INR APTT D-Dimer Sodium Potassium Chloride Carbon Dioxide Anion Gap BUN Creatinine Estim Creat Clear Calc Estimated GFR Glucose Calcium Magnesium Total Bilirubin AST ALT Alkaline Phosphatase Total Protein Albumin Nasal MRSA (PCR) Not detected (NOT DETECTE) Manz[place] < 0.2 L mmol/L (0.6-1.2) Influenza A (RT-PCR) Influenza B (RT-PCR) Ur L.pneumophila Ag Pending Mycoplasma pneumon IgM RSV (RT-PCR) SARS-CoV-2 RNA (RT-PCR) Urine Pneumococcal Ag Pending Blood Type Antibody Screen 08/26/24 05:22 WBC 10.1 H K/mm3 (4.5-10.0) RBC 4.01 L M/mm3 (4.6-6.20) Hgb 12.5 L g/dL (14.0-18.0) Hct 38.2 L % (42.0-52.0) MCV 95.3 fl (80-100) MCH 31.2 pg (26-34) MCHC 32.7 g/dl (32-36) RDW 13.1 % (11.5-14.5) Plt Count 298 k/mm3 (150-375) MPV 8.8 fl (7.4-10.4) Immature Gran % (Auto) Neut % (Auto) Lymph % (Auto) [place] % (Auto) Eos % (Auto) Baso % (Auto) Lymph # (Auto) [place] # (Auto) Eos # (Auto) Baso # (Auto) Abs Immat Gran (auto) Absolute Neuts (auto) Absolute Nucleated RBC Nucleated RBC % PT INR APTT D-Dimer Sodium 139 mmol/L (137-145) Potassium 4.1 mmol/L (3.4-5.0) Chloride 105 mmol/L (98-107) Carbon Dioxide 27 mmol/L (22-30) Anion Gap 7 mmol/L (4-12) BUN 8 L mg/dL (9-20) Creatinine 0.75 mg/dL (0.7-1.3) Estim Creat Clear Calc 153 ml/min Estimated GFR > 60 (59 - ) Glucose 97 mg/dL (65-110) Calcium 8.7 mg/dL (8.4-10.2) Magnesium 2.3 mg/dL (1.6-2.3) Total Bilirubin AST ALT Alkaline Phosphatase Total Protein Albumin Nasal MRSA (PCR) Manzano Influenza A (RT-PCR) Influenza B (RT-PCR) Ur L.pneumophila Ag Mycoplasma pneumon IgM Pending RSV (RT-PCR) SARS-CoV-2 RNA (RT-PCR) Urine Pneumococcal Ag Blood Type Antibody Screen Patient hx anesthesia problems: none Family hx anesthesia problems: none Results Review: All pre-operative results and documents have been reviewed as part of the pre- operative evaluation. [facility] Past Medical History Medical History (Updated 08/26/24 @ 10:20 by Dewayne Wadsworth MD) Leukocytosis Coffee ground emesis Anxiety Hepatic steatosis on CT scan in 08/2024 Hiatal hernia moderate-sized sliding hiatal hernia Bipolar disorder Surgical History Surgical History (Updated 08/25/24 @ 20:01 by Ana Maria Guerra PA-C) History of lumbar fusion Social History Social History (Updated 08/25/24 @ 20:05 by Ana Maria Guerra PA-C) Social History: Surrogate medical decision maker: Jacque Rider, spouse. Code status: Full code. Smoking status: Never smoker Alcohol intake: never Substance use: never Do You Feel Safe in your Home?: Yes Lack of Transportation: YES Lack of Food: Never True Current Housing: I Have Housing Concerned About Future Housing: No Difficulty Paying Gas/Electric Bills: No Difficulty Paying for Meds: No Currently Unemployed: No Education: Trade/Vocational Certificate Difficulty w/ Childcare or Family Care: No Additional living arrangements comments: Lives with and 4 children. 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 Spiritual care concerns: No Anes - Eval Final PreProcedure Day of Procedure 08/26/24 10:04 Patient weight: obese Heart: regular rate and rhythm Lungs: clear to auscultation Airway: Mallampati scale class III Neurological: alert and oriented Last oral intake: >/= 8 hours ASA classification: III Emergent: yes Anesthetic plan: proceed Anesthesia type and monitoring: general GIVS Results Review: All pre-operative results and documents have been reviewed as part of the pre- operative evaluation. Informed Consent: The patient's anesthetic plan and its attendant risks and benefits were discussed with the patient/family/POA. Questions were solicited and answers provided to the satisfaction of the patient/family/POA.
[2024-08-26] MEDS: LACTATED RINGERS 1,000 ML 150 ML IV CONT (10:12)
--- NOTE | 2024-08-26 10:15 | P.CONGI_ITS ---
Assessment and Plan Assessment and plan (1) Coffee ground emesis: Code(s): K92.0 - Hematemesis Status: Acute Assessment and Plan: will proceed with egd few months of n/v and gerd symptoms, was started on ppi and carafate wonder if could have esophagitis, ulcer, gastritis, etc (2) Hiatal hernia: Code(s): K44.9 - Diaphragmatic hernia without obstruction or gangrene Status: Acute Assessment and Plan: CT scan reviewed egd (3) GERD (gastroesophageal reflux disease): Code(s): K21.9 - Gastro-esophageal reflux disease without esophagitis Status: Acute Assessment and Plan: on ppi (4) Bipolar disorder: Code(s): F31.9 - Bipolar disorder, unspecified Status: Acute (5) Pneumonia: Code(s): J18.9 - Pneumonia, unspecified organism Status: Inactive Assessment and Plan: started on iv antibiotics (6) Nausea & vomiting: Code(s): R11.2 - Nausea with vomiting, unspecified Status: Inactive (7) Leukocytosis: Code(s): D72.829 - Elevated white blood cell count, unspecified Status: Acute GI Consult Note Consult date/time: 08/26/24 10:15 Reason for consult: coffee ground emesis HPI: David Rider is a 43 year old male with history of GERD recently started on omeprazole and carafate (last EGD about 7-8 years ago per patient and had bleeding), bipolar on meds with nausea and intermittent epigastric discomfort for last few months. He came to the emergency department via private vehicle after started having more frequent emesis with coffee ground material started last weekend, also epigastric pain became more frequent. He takes Tums occasionally with mild relief. He also noted dark stool. No nsaid's, no alcohol abuse. ER Labs were significant for WBC count of 14.2, hemoglobin 14.3, D-dimer 0.55, anion gap 14, BUN 6, creatinine 0.64, glucose 153. CT of the chest, abdomen, and pelvis showed no pulmonary embolism, diffuse hepatic steatosis, moderate size sliding hiatal hernia, and small lung volumes with diffuse lung disease consistent with atypical pneumonia versus mild pulmonary edema versus atelectasis. Review of Systems 2 Constitutional: Constitutional: Denies chills Eyes: Eyes: Denies blurry vision ENT: Reports Normal hearing present Cardiovascular: Cardiovascular: Denies diaphoresis Respiratory: Respiratory: Reports cough Gastrointestinal: Gastrointestinal: Reports nausea and Reports vomiting Genitourinary: Genitourinary: Denies hematuria Musculoskeletal: Musculoskeletal: Denies neck pain Integumentary/Breasts: Skin/Breast: Denies rash Neurologic: Denies confusion Psychiatric: Psychiatric: Denies confusion [facility] Past Medical History Medical History (Updated 08/26/24 @ 10:20 by Dewayne Wadsworth MD) GERD (gastroesophageal reflux disease) Leukocytosis Coffee ground emesis Anxiety Hepatic steatosis on CT scan in 08/2024 Hiatal hernia moderate-sized sliding hiatal hernia Bipolar disorder Surgical History Surgical History (Updated 08/25/24 @ 20:01 by Ana Maria Guerra PA-C) History of lumbar fusion Social History Social History (Updated 08/25/24 @ 20:05 by Ana Maria Guerra PA-C) Social History: Surrogate medical decision maker: Jacque Rider, spouse. Code status: Full code. Smoking status: Never smoker Alcohol intake: never Substance use: never Do You Feel Safe in your Home?: Yes Lack of Transportation: YES Lack of Food: Never True Current Housing: I Have Housing Concerned About Future Housing: No Difficulty Paying Gas/Electric Bills: No Difficulty Paying for Meds: No Currently Unemployed: No Education: Trade/Vocational Certificate Difficulty w/ Childcare or Family Care: No Additional living arrangements comments: Lives with and 4 children. 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 Spiritual care concerns: No Meds Home Medications and Allergies Home Medications ?Medication ?Instructions ?Recorded ?Confirmed ?Type doxycycline hyclate 100 mg tablet 100 mg PO BID #10 tabs 06/28/24 08/25/24 Rx metoclopramide HCl 10 mg tablet 10 mg PO Q6H PRN nausea and 06/28/24 08/25/24 Rx (Reglan) vomiting #20 tabs bupropion HCl 300 mg 24 hr tablet, 300 mg PO DAILY 08/25/24 08/25/24 History extended release cariprazine 3 mg capsule (Vraylar) 3 mg PO DAILY 08/25/24 08/25/24 History dexmethylphenidate 15 mg 15 mg PO DAILY 08/25/24 08/25/24 History capsule,extended release [id number] eszopiclone 1 mg tablet 1 mg PO HS 08/25/24 08/25/24 History lithium carbonate 450 mg 450 mg PO HS 08/25/24 08/25/24 History tablet,extended release omeprazole 40 mg capsule,delayed 40 mg PO BID 08/25/24 08/25/24 History release propranolol 120 mg capsule,24 120 mg PO Q24H 08/25/24 08/25/24 History hr,extended release quetiapine 50 mg tablet 50 mg PO HS 08/25/24 08/25/24 History sucralfate 1 gram tablet 1 g PO TIDWM 08/25/24 08/25/24 History venlafaxine 75 mg capsule,extended 75 mg PO DAILY 08/25/24 08/25/24 History release 24 hr Allergies Allergy/AdvReac Type Severity Reaction Status Date / Time steriod AdvReac Intermediate Agitated Uncoded 08/26/24 10:03 Vital Signs Vital Signs - 24 hr 08/25/24 10:30 08/25/24 11:49 08/25/24 12:00 Temperature Pulse Rate 101 H 100 101 H Respiratory Rate 20 24 H 16 Blood Pressure 153/98 H 133/99 H Pulse Oximetry 98 96 94 Oxygen Delivery 08/25/24 14:06 08/25/24 17:13 08/25/24 20:00 Temperature Pulse Rate 96 Respiratory Rate 15 Blood Pressure 128/81 Pulse Oximetry 97 Oxygen Delivery Room Air Room Air 08/25/24 20:23 08/25/24 20:44 08/26/24 03:42 Temperature 98.2 F 97.9 F Pulse Rate 98 98 74 Respiratory Rate 20 20 Blood Pressure 137/77 107/68 Pulse Oximetry 94 97 Oxygen Delivery Exam 2 Const: General: comfortable and no acute distress HENMT: Face/Nose/Sinus: Normal nares present Eyes: General: appearance normal, both eyes and all related structures Neck: Neck: supple Resp: Effort & Inspection: normal respiratory effort Auscultation: no crackles Other: slightly coarse in bases Cardio: Rate: regular rate Rhythm: regular rhythm GI: Inspection: non-distended GI Palp: Yes Soft to palpation and No Tenderness to palpation present (GI) Auscultation: normal bowel sounds Skin: General skin exam: normal color Neuro: Speech: normal speech Motor exam (neuro): 5/5 motor strength present throughout Extrem: General: normal to inspection Psych: Mental Status: mental status grossly normal Results Labs 08/26/24 05:22 08/26/24 05:22 Labs: Short CBC 08/25/24 08/25/24 08/26/24 Range/Units 10:34 21:23 05:22 WBC 14.2 H 10.1 H (4.5-10.0) K/mm3 Hgb 14.3 12.6 L 12.5 L (14.0-18.0) g/dL Hct 42.0 37.3 L 38.2 L (42.0-52.0) % Plt Count 337 298 (150-375) k/mm3 BMP 08/25/24 08/26/24 10:35 05:22 Sodium 141 139 Potassium 3.8 4.1 Chloride 104 105 Carbon Dioxide 23 27 BUN 6 L 8 L Creatinine 0.64 L 0.75 Glucose 153 H 97 Calcium 9.1 8.7 Liver Function 08/25/24 Range/Units 10:35 Total Bilirubin 1.0 (0.2-1.3) mg/dL AST 37 (17-59) U/L ALT 80 H (6-50) U/L Alkaline Phosphatase 95 (38-126) U/L Albumin 4.1 (3.5-5.1) g/dL
[2024-08-26] MEDS: SUCRALFATE 1 GM TABLET PO ×2 (11:20→18:51)
[2024-08-26] MEDS: VENLAFAXINE HCL XR 75 MG CAP.ER.24H PO (11:20)
[2024-08-26] MEDS: buPROPion HCL XL (24 HR) 150 MG TABCR 300 MG PO (11:20)
[2024-08-26] MEDS: guaiFENesin 12 HR 600 MG TABCR 1200 MG PO ×2 (11:20→20:18)
[2024-08-26] MEDS: LITHIUM CARBONATE 150 MG CAPSULE PO (11:20)
[2024-08-26] MEDS: AZITHROMYCIN 500 MG/NS 250 ML 500 MG/250 ML BAG 250 MG IVPB (11:26)
[2024-08-26] MEDS: PROPRANOLOL HCL 60 MG CAPSULE CR 120 MG PO (20:18)
[2024-08-26] MEDS: QUEtiapine FUMARATE 25 MG TABLET 50 MG PO (20:18)
[2024-08-26] MEDS: LITHIUM CARBONATE 300 MG CAPSULE PO (20:18)
[2024-08-27] MEDS: AMPICILLIN SULB 3 GM/NS 100 ML 3 GM/100 ML VIAL IVPB ×2 (00:01→05:17)
[2024-08-27 03:44] VITALS: BP 106/67; PULSE 63; RESP 20; TEMP 36.6; O2SAT 94
--- NOTE | 2024-08-27 07:39 | P.DS_ITS ---
DS: Admitting Diagnosis Discharge Date 08/27/24 Admitting Diagnosis Coffee Ground Emesis, Hiatal Hernia, PNA, Bipolar disorder DS: Discharge Diagnosis Discharge Diagnosis (1) Coffee ground emesis: Code(s): K92.0 - Hematemesis Status: Acute Assessment and Plan: Patient presented for coffee-ground emesis, dark stools. Ddx includes gastric/duodnal ulcer, mayte araujo tear, other --GI consulted, appreciate recommendations --EGD completed, showed a single nonbleeding lesion --Continue IV PPI BID --Holding oral meds for procedure per GI recs, changed antibiotics to IV 08/27/24: * Pt tolerating diet. * OK to discharge per GI and follow up as outpt. * Continue low residue diet. * Continue PPI therapy and Carafate. (2) Hiatal hernia: Code(s): K44.9 - Diaphragmatic hernia without obstruction or gangrene Status: Acute Assessment and Plan: Hiatal hernia and Faisal lesion noted on EGD --Continue PPI 08/27/24: * As noted per GI, follow up with surgeon regarding hernia (3) Bipolar disorder: Code(s): F31.9 - Bipolar disorder, unspecified Status: Acute Assessment and Plan: Takes lithium 150mg/300mg hs --Holding AM dose of lithium since NPO, resume (4) Pneumonia: Code(s): J18.9 - Pneumonia, unspecified organism Status: Acute Assessment and Plan: * Continue abx of Azithromycin and Augmentin to completion. Plan Continue all other home meds. DS: Summary Hospital Course Reason for hospitalization: GI bleed Hospital Course: This is a very pleasant 43-year-old male who presented to the emergency department on 08/25/24 with complaints of ?vomiting blood.? He gives a several month history of intermittent abdominal pain, nausea, and vomiting which seems to happen more at night. He endorses GERD symptoms and states that sometimes he wakes up at night to stomach contents and occasional regurgitated food in the back of his throat. Sometimes he vomits all night and he tells me that he when be surprised if he aspirates on occasion during these episodes as he occasionally has a productive cough which reportedly looks similar to his emesis. He was started on a PPI and more recently sucralfate which does not seem to be helping. He takes Tums occasionally with mild relief. The last 3 days he had been vomiting more frequently and reports that it looks like coffee grounds. He also reports that his stool is dark and sticky and has a strong odor. He drinks caffeine daily but denies significant alcohol use. Very rarely will he take an NSAID. He denies syncope, near syncope, fever, chills, sweats, sinus congestion, sore throat, chest pain, pleuritic pain, and hematochezia. No known history of peptic ulcers. In the ED: Vital signs were stable on arrival. Labs were significant for WBC count of 14.2, hemoglobin 14.3, D-dimer 0.55, anion gap 14, BUN 6, creatinine 0.64, glucose 153. CT of the chest, abdomen, and pelvis showed no pulmonary embolism, diffuse hepatic steatosis, moderate size sliding hiatal hernia, and small lung volumes with diffuse lung disease consistent with atypical pneumonia versus mild pulmonary edema versus atelectasis. He received pantoprazole 80 mg IV, ondansetron 4 mg IV, azithromycin 500 mg IV, and ceftriaxone 1 g IV. He is being admitted in this setting for further treatment and GI consultation. EGD was performed on 08/26/24 and was significant for finding a hiatal hernia, a single faisal ulcer and no other acute s/s of bleeding. He has been tolerating a low residue diet and is stable for discharge at this time to continue PPI therapy and Carafate as advised from GI and follow up with them as outpt. Pt will have an additional two days of Zithromax for his PNA and one week of Aug mentin. Status at Discharge Cognitive/behavioral status at discharge: At baseline Functional status at discharge: independent ambulation Overall status at discharge: patient is back to baseline Time Spent with Patient Time attestation: Total time spent providing and/or coordinating discharge services: Time spent: Greater than 30 minutes Specific discharge activities: Follow up, medications, diet instructions. Exam Narrative: General: Nontoxic-appearing male in the semi-Guerrero position in bed. HEENT: Normocephalic, atraumatic. PERRL, EOMI. Sclera anicteric. Oral mucosa moist. Neck: Supple. Respiratory: Respirations are nonlabored he is speaking in full sentences. Lung sounds coarse posterior bases Cardiovascular: Regular rate and rhythm with S1-S2. Gastrointestinal: Abdomen is soft and nondistended with positive bowel sounds. He is a bit tender to deeper palpation epigastric region. No guarding or rebound tenderness. Skin: Warm and dry. No rash or lesions on limited exam. Extremities: No cyanosis, clubbing, or edema. Radial and pedal pulses intact. Neurological: Alert. Cranial nerves 2-12 are grossly intact. No gross focal deficits to casual conversation. Psychiatric: Pleasant and cooperative with normal mood and affect. Judgment and insight intact. DS: Data Data Completed and Pending Completed studies during hospitalization: ITS Impressions Chest/Abdomen/Pelvis CTA 08/25/24 11:48 IMPRESSION: 1. Small lung volumes with diffuse lung disease, consistent with atypical pneumonia versus mild pulmonary edema versus atelectasis. 2. Moderate-sized sliding hiatal hernia. 3. Diffuse hepatic steatosis. 4. No pulmonary embolus. Pending studies at discharge: Pending at discharge 08/26/24 10:33 Surgical [PTH] Routine Labs on day of discharge: Preliminary micro results at discharge 08/25/24 13:26 Blood Culture - Preliminary Blood 08/25/24 13:26 Blood Culture - Preliminary Blood Discharge Plan Discharge Attending physician on discharge: Janett Estrada Consulting providers: Dewayne Wadsworth Discharging Clinician: Janett Estrada Anticipated Discharge Date/Time: 08/27/24 07:49 Patient Disposition: Home, Self-Care Activity: as tolerated Diet: low fiber Discharge Instructions: Please take all medications as ordered and follow up with both your PCP and GI as directed. Continue to eat a low fiber diet. Avoid any NSAIDS, (Motrin, Ibuprofen, Aspirin, Naproxen, Aleve, Naprosyn, Excedrin.) If any worsening of symptoms, return to the ER. Patient Instructions: Antibiotic Form Patient Language: Pashto Stand Alone Forms: General Discharge Information Follow-up/Referrals: Yasmin,DO Haris [Primary Care Provider] - Call for Appointment Dewayne Wadsworht MD [Physician] - 1 Week Discharge Medications: New amoxicillin-pot clavulanate 875-125 mg tablet 1 tablet PO Q12H Qty: 20 0RF azithromycin 500 mg tablet 500 mg PO DAILY 2 Days Qty: 2 0RF Continued metoclopramide HCl [Reglan] 10 mg tablet 10 mg PO Q6H PRN (Reason: nausea and vomiting) Qty: 20 0RF omeprazole 40 mg capsule,delayed release(DR/EC) 40 mg PO BID propranolol 120 mg capsule,extended release 24 hr 120 mg PO Q24H sucralfate 1 gram tablet 1 g PO TIDWM quetiapine 50 mg tablet 50 mg PO HS bupropion HCl 300 mg tablet extended release 24 hr 300 mg PO DAILY Vraylar 3 mg capsule 3 mg PO DAILY lithium carbonate 450 mg tablet extended release 450 mg PO HS eszopiclone 1 mg tablet 1 mg PO HS venlafaxine 75 mg capsule,extended release 24hr 75 mg PO DAILY dexmethylphenidate 15 mg capsule,ER biphasic 50-50 15 mg PO DAILY Discontinued doxycycline hyclate 100 mg tablet 100 mg PO BID Qty: 10 0RF Date of admission: 08/25/24 14:13 Primary Care Provider: Yasmin,Haris Admitting Provider: Bradley Suarez Attending physician on admission: Janett Estrada Condition: Stable Quality VTE Prophylaxis VTE prophylaxis: mechanical ordered Hospitalist MIPS Heart Failure (Exclusion) Patient has history of Heart Transplant or Left Ventricular Assistive Device?: No IF YES, STOP HERE Heart Failure (Qualifier) Patient has current or prior documentation of LVEF less than or equal to 40%, or mod/servere depressed LVSF?: No IF NO, STOP HERE
[2024-08-27] MEDS: SUCRALFATE 1 GM TABLET PO (09:02)
[2024-08-27] MEDS: VENLAFAXINE HCL XR 75 MG CAP.ER.24H PO (09:02)
[2024-08-27] MEDS: guaiFENesin 12 HR 600 MG TABCR 1200 MG PO (09:02)
[2024-08-27] MEDS: PANTOPRAZOLE SODIUM IV 40 MG VIAL IV PUSH (09:02)
[2024-08-27] MEDS: buPROPion HCL XL (24 HR) 150 MG TABCR 300 MG PO (09:02)
[2024-08-27] MEDS: LITHIUM CARBONATE 150 MG CAPSULE PO (09:02)
--- NOTE | 2024-08-27 13:38 | WPDGIPROGNO ---
Progress Note: A&P Assessment and Plan (1) Coffee ground emesis: Code(s): K92.0 - Hematemesis Status: Acute Assessment and Plan: noted faisal lesion (no active bleeding) and hiatal hernia he can go home with ppi daily (2) Hiatal hernia: Code(s): K44.9 - Diaphragmatic hernia without obstruction or gangrene Status: Acute Assessment and Plan: will refer to see surgery as outpatient (3) Faisal lesion, acute: Code(s): K25.3 - Acute gastric ulcer without hemorrhage or perforation Status: Acute Assessment and Plan: on ppi (4) Leukocytosis: Code(s): D72.829 - Elevated white blood cell count, unspecified Status: Acute Assessment and Plan: down to 10k (5) Pneumonia: Code(s): J18.9 - Pneumonia, unspecified organism Status: Acute Subjective Date/time seen: 08/27/24 09:22 Interval history: doing ok, egd yesterday with hiatal hernia and faisal lesion (confirmed with bx) Review of Systems Review of Systems: All systems reviewed & are unremarkable except as noted in HPI and below Exam Const: General: comfortable and no acute distress HENMT: Face/Nose/Sinus: Normal nares present Eyes: General: appearance normal, both eyes and all related structures Neck: Neck: no JVD Resp: Auscultation: clear to auscultation bilaterally Cardio: Rate: regular rate Rhythm: regular rhythm GI: Inspection: non-distended GI Palp: Yes Soft to palpation and No Tenderness to palpation present (GI) Skin: General skin exam: normal color Neuro: Speech: normal speech Extrem: General: normal to inspection Psych: Mental Status: mental status grossly normal Objective Data Vital Signs Vital Signs: Vital Signs - 24 hr 08/26/24 14:00 08/26/24 20:00 08/26/24 20:12 Temperature 97.6 F 97.7 F Pulse Rate 75 72 Respiratory Rate 19 20 Blood Pressure 109/70 108/63 Pulse Oximetry 97 94 Oxygen Delivery Room Air 08/26/24 20:18 08/27/24 03:44 08/27/24 09:08 Temperature 97.8 F Pulse Rate 76 63 Respiratory Rate 20 Blood Pressure 106/67 Pulse Oximetry 94 Oxygen Delivery Room Air Intake/Output Intake/Output: Intake & Output 02/04/0908/25/24 08/26/24 08/27/24 23:59 23:59 23:59 23:59 Intake Total 1342 1012 830 Balance 1342 1012 830 Meds/Results Radiology Results: ITS Impressions Chest/Abdomen/Pelvis CTA 08/25/24 11:48 IMPRESSION: 1. Small lung volumes with diffuse lung disease, consistent with atypical pneumonia versus mild pulmonary edema versus atelectasis. 2. Moderate-sized sliding hiatal hernia. 3. Diffuse hepatic steatosis. 4. No pulmonary embolus.
[2024-08-28 15:33] LABS: Pneumococcal Antigen Urine NOT DETECTED
[2024-08-28 20:08] LABS: Legionella pneumophila Ag Ur NOT DETECTED
[2024-08-29 21:47] LABS: Mycoplasma IgM Antibody Titer 180 U/mL
== END 2024-08-27 11:08 | disposition home or self-care (01) ==
LOC: ANHED 10:52 → ANH2MED 15:52
PROVIDERS: Emergency Medicine; Internal Medicine Gastroenterology; Physician Assistant; Admitting Provider Internal Medicine; Emergency Provider Physician Assistant; PCP Student in an Organized Health Care Education/Training Program; Visit Provider Nurse Practitioner Adult Health
PROC: 0DJ08ZZ Inspection of Upper Intestinal Tract, Via Natural or Artificial Opening Endoscopic (ICD-10-PCS; CPT 43239; principal; 2024-08-26 16:00)
DX: K25.0 Acute gastric ulcer with hemorrhage (principal); K44.9 Diaphragmatic hernia without obstruction or gangrene; J18.9 Pneumonia, unspecified organism; K21.9 Gastro-esophageal reflux disease without esophagitis; F41.9 Anxiety disorder, unspecified; F31.9 Bipolar disorder, unspecified; E66.9 Obesity, unspecified; Z68.36 Body mass index [BMI] 36.0-36.9, adult; D72.829 Elevated white blood cell count, unspecified; Z79.899 Other long term (current) drug therapy; Z98.1 Arthrodesis status
CPT/HCPCS: 43239; 36415; 71275; 74177; 80048; 80053; 80178; 83735; 85014; 85018; 85025; 85027; 85380; 85610; 85730; 86738; 86850; 86900; 86901; 87040; 87449; 87637; 87641; 87899; 88305; 93005; 96365; 96367; 96375; 96376; 99285; A9270; G0378; J0295; J0456; J0696; J2003; J2405; J2470; J2704; J7120; Q9967

== ENCOUNTER 2024-09-30 07:58 | Outpatient (CLI) | payer OTHER, SELFPAY ==
--- NOTE | ~2024-09-30 | US_ITS ---
Limited Abdominal Sonogram: Real-time sonographic imaging of the right upper quadrant was performed. Clinical History: Epigastric pain Findings: The liver appears echogenic, with no evidence of mass lesion or bile duct dilatation. Live r measures 22.8 cm in length. Main portal vein demonstrates normal direction of flow. The gallbladder is well distended, and appears normal with no evidence of gallstone or wall thickening. The common b ile duct measures 5 mm. The visualized pancreas, aorta, and IVC are unremarkable. Right kidney unrem arkable. Impression: Diffuse fatty infiltration of the liver, with associated hepatomegaly. Reviewed, dictated and finalized at location . Impression: Diffuse fatty infiltration of the liver, with associated hepatomegaly.
--- OUTSIDE RECORDS SUMMARY | 2024-09-30 08:11 | XMS_ITS ---
Author Organization [facility] Address [address] [place] [address] Care Team Providers Care Manager Retail Sales Name Role Phone Boni Romero Primary Care Provider Manuelito Larson [phone] Allergies No Known Allergies REASON FOR VISIT 4 week F/U Medications Medication SIG (Take, Route, Frequency, Duration) Notes Start Date End Date Status [place] Carbonate ER 450 MG 3 tablets at bedtime Orally Once a day for 30 days Active Ondansetron HCl 4 MG 1 tablet Orally Once a day for 30 days As needed for nausea 03/27/2024 Active buPROPion HCl ER (XL) 300 MG 1 tablet in the morning Orally Once a day for 30 days 06/03/2021 Active Vraylar 3 MG 1 capsule Orally Once a day for 30 days 04/22/2024 Active Venlafaxine HCl ER 75 MG 1 capsule with food Orally Once a day for 30 days 10/26/2023 Active Dexmethylphenidate HCl ER 15 MG 1 capsule in the morning Orally Once a day. Please fill on or after September 29, 2024. for 30 days 09/02/2024 Active Dexmethylphenidate HCl ER 15 MG 1 capsule in the morning Orally Once a day. 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 Works evenings. : none Social: parents shortly [...] GED. Encounters Encounter Location Date Provider Diagnosis [address] [place] [address] 09/02/2024 Boni Romero Bipolar 1 disorder F31.9 ; Post-traumatic stress disorder, unspecified F43.10 ; ROSY (generalized anxiety disorder) F41.1 ; ADHD (attention deficit hyperactivity disorder), inattentive type F90.0 and Insomnia G47.00 Assessments Encounter Date Diagnosis (ICD Code) Assessment Notes Treatment Notes Treatment Clinical Notes Section Notes 09/02/2024 Bipolar 1 disorder (ICD-10 - F31.9) Client doing well mentally, no changes needed at this time. 09/02/2024 Post-traumatic stress disorder, unspecified (ICD-10 - F43.10) Client doing well mentally, no changes needed at this time. 09/02/2024 ROSY (generalized anxiety disorder) (ICD-10 - F41.1) Client doing well mentally, no changes needed at this time. 09/02/2024 ADHD (attention deficit hyperactivity disorder), inattentive type (ICD-10 - F90.0) Client doing well mentally, no changes needed at this time. 09/02/2024 Insomnia (ICD-10 - G47.00) Client doing well mentally, no changes needed at this time. 09[place]02/[place]24 [place] [...] number to the 24-hour crisis line at [facility]. Questions addressed. Client verbalized understanding of all information and is agreeable to treatment plan. Client doing well mentally, no changes needed at this time. Plan Of Treatment Medication Medication Name Sig Start Date Stop Date Notes [place] Carbonate ER 450 MG 3 tablets at bedtime Orally Once a day for 30 days buPROPion HCl ER (XL) 300 MG 1 tablet in the morning Orally Once a day for 30 days 06/03/2021 Vraylar 3 MG 1 capsule Orally Once a day for 30 days 04/22/2024 Venlafaxine HCl ER 75 MG 1 capsule with food Orally Once a day for 30 days 10/26/2023 Dexmethylphenidate HCl ER 15 MG 1 capsule in the morning Orally Once a day. Please fill on or after September 29, 2024. for 30 days 09/02/2024 Dexmethylphenidate HCl ER 15 MG 1 capsule in the morning Orally Once a day. for 30 days 09/02/2024 Propranolol HCl ER 120 MG 1 capsule at b edtime Orally Once a day for 30 days 09/27/2023 increased from 60 mg QUEtiapine Fumarate 50 MG 0.5 - 1 tablet at bedtime Orally Once a day for 30 days 11/08/2023 Eszopiclone 1 MG 1 tablet immediately before bedtime Orally Once a day for 30 days 09/02/2024 Treatment Notes Assessment Notes [place] [...] number to the 24-hour crisis line at [facility]. Questions addressed. Client verbalized understanding of all information and is agreeable to treatment plan. Next Appt Details Follow Up: 4 Weeks - 6 Weeks , Reason: Medication management - can be telehealth appt. Progress Notes * David POWERSDOB:1980 (43 yo M)Acc No.[id number]:09/02/2024 Patient: David ALBARADO Provider: Sukhjinder Romero, CHEVY, PMHNP-BC :1980 A ge:43 Y S ex:Male Date:09/02/2024 [facility] Subjective: * Chief Complaints: * 4 week F/U * HPI: D epression Screening: PHQ-9 L ittle interest or pleasure in doing things N ot at all, F eeling down, depressed, or hopeless S everal days, T rouble falling or staying asleep, or sleeping too much S everal days, F eeling tired or having little energy S everal days, P oor appetite or overeating S everal days, F eeling bad about yourself or that you are a failure, or have let yourself or your family down S everal days, T rouble concentrating on things, such as reading the newspaper or watching television N ot at all, M oving or speaking so slowly that other people could have noticed; or the opposite, being so fidgety or restless that you have been moving around a lot more than usual N ot at all, T houghts that you would be better off or of hurting yourself in some way N ot at all, T otal Score?5, I nterpretation M ild Depression. S creening: Benjamin Suicide Severity Rating Scale (LF) D o you want to initiate with S creener form, 1 . Wish to be : Have you wished you were or wished you could go to sleep and not wake up? N o, 2 . Suicidal Thoughts: Have you actually had any thoughts of killing yourself? N o, 6 . Suicide Behavior Question: Have you ever done anything,started to do anything, or prepared to end your life? N o, I nterpretation: L ow Risk. C SSRS Interpretation and Follow Up Plan: CSSRS Interpretation and Follow Up Plan C SSRS Screen documented using SF Y es, R isk Disposition from L ow - No Follow Up Plan Required, F ollow Up Plan N o Follow Up Plan required at this time.. S silvia: Session conducted telephonically with client's permission.? Client is pleasant and conversational. HPI: I'm okay now that they figured my stomach issues out. David Powers is a 43-year-old male who has been dealing with gastrointestinal issues for several months. He reports frequent vomiting and acid reflux, which have progressively worsened over time. Recently, he underwent a scope that revealed an ulcer, lesions in the stomach, and a hiatal hernia. The hernia is suspected to be contributing to his symptoms, including vomiting and potential aspiration leading to chemical pneumonia. David has been managing his symptoms by elevating his head while sleeping and avoiding late meals. Despite these measures, he continues to experience discomfort and is scheduled to meet with a surgeon to address the hernia. David has been able to maintain his work schedule, taking days off only for medical appointments. He reports that his home life is stable, and he is managing his medications well. He reports that his anxiety is manageable with the current medication regimen. David is hopeful that the upcoming surgical consultation will provide a solution to his ongoing gastrointestinal issues. T he patient has a history of psychological issues and has previously undergone EMDR therapy. They believe that the vomiting could be related to psychological stressors. States he feels he is underestimating the number of stressors he is under. Mild depression/anxiety, denies current S I or HI, denies hallucinations or paranoia, denies insomnia,denies mood swings. HISTORICAL BACKGROUND:Hospitalized in summer for psychotic break questionable drug [...] (lithium increased), LFTs increased with f/u from PCP. Thyroid normal, kidney function normal.? Goals: Work on my anxiety and past trauma Coping strategies: Played guitar in past. Encouraged to try as coping mechanism. Spending time with kids and . Caffeine use: Minimal Drugs/ETOH: Denies Cig/Vape use: Denies Therapy: [facility] in past, none currently Medications effective: Yes Medications adherence: Yes Medication side effects: client with frequent vomiting, unknown if r/t medications. Sleep: Denies Appetite: Good Depression: Mild Anxiety: Fair to Good Anger/Irritability: Good Hallucinations/Paranoia: Denies Suicidal ideation: Denies Homicidal ideation: Denies Medical concerns or hospitalizations: Denies Any new medications from other providers: Denies. * ROS: P sych ROS: Constitutional D enies. E yes D enies. E ars/Nose/Mouth/Throat D enies. R espiratory D enies. A llergic/Immunologic D enies.?Cardiovascular D enies. G I R eports, R eports nausea/vomiting - possible cyclic vomiting. G U D enies. M usculoskeletal D enies. N eurological D enies. I ntegumentary D enies. E ndocrine D enies. H ematological/Lymphatic D enies. ? * PSYCH ROS2: Elevated mood symptoms D enies. m ood swings D enies. T houghts of self harm D enies. D enies H omicidal thoughts. H yperactivity?Denies. I nattention D enies. A dmits A nxiety, t hat is mild. D enies A uditory/visual hallucinations. D enies D elusions. A dmits D epressed mood, w hich is mild. D enies D ifficulty sleeping. D enies E ating disorder. L oss of appetite?Admits. D enies M ental or Physical abuse. A dmits S tressors, T rauma History,Immediate Family. D enies S ubstance abuse. D enies S uicidal thoughts. * Medical History: * Surgical History: S anuj fusion 2011 * Hospitalization/Major Diagno stic Procedure: M Logan Goodman 2020 * Family History: D aughter(s): Autism spectrum. F ather: . M other: . 1 brother(s) , 2 sister(s) . 3 son(s) , 1 daughter(s) - healthy. . Family Medical History: Diabetes, HTN, Cancer, Family History of Mental Illness: Nephew- Depression. Family History of suicide attempts/completions: unknown Family History of Drug/Alcohol use: Both sisters-drink alcohol. , Biological Father was an alcoholic. * Social History: P rimary Social History: L iving Arrangement L iving Arrangement: I ndependent Living, I s this a supportive environment? Y es. A lcohol Use A lcohol Use Frequency: N ever. I llicit Substance Usage I llicit Substance Usage: N o. 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 Works evenings. : none Social: parents shortly [...] . States he has a GED. * Medications: T akingLithium Carbonate ER 450 MG Tablet Extended Release 3 tablets at bedtime Orally Once a day Vraylar 3 MG Capsule 1 capsule Orally Once a [...] tablet at bedtime Orally Once a day Pantoprazole Sodium 40 MG Tablet Delayed Release 1 tablet 1/2 to 1 hour before morning meal Orally Once a day Ondansetron HCl 4 MG Tablet 1 tablet Orally Once a day As needed for nauseaDexmethylphenidate HCl ER 15 MG Capsule Extended Release 24 Hour 1 capsule in the morning Orally Once a day. Please fill on or after June 18, 2024. Dexmethylphenidate HCl ER 15 MG Capsule Extended Release 24 Hour 1 capsule in the morning Orally Once a day. Propranolol HCl ER 120 MG Capsule Extended Release 24 Hour 1 capsule at bedtime Orally Once a day , Notes to Pharmacist: increased from 60 mgTaking [place] Carbonate ER 450 MG Tablet Extended Release 3 tablets at bedtime Orally Once a day Taking Vraylar 3 MG Capsule 1 capsule Orally Once a [...] at bedtime Orally Once a day Taking Pantoprazole Sodium 40 MG Tablet Delayed Release 1 tablet 1/2 to 1 hour before morning meal Orally Once a day Taking Ondansetron HCl 4 MG Tablet 1 tablet Orally Once a day As needed for nauseaTaking Dexmethylphenidate HCl ER 15 MG Capsule Extended Release 24 Hour 1 capsule in the morning Orally Once a day. Please fill on or after June 18, 2024. Taking Dexmethylphenidate HCl ER 15 MG Capsule Extended Release 24 Hour 1 capsule in the morning Orally Once a day. Taking Propranolol HCl ER 120 MG Capsule Extended Release 24 Hour 1 capsule at bedtime Orally Once a day , Notes to Pharmacist: increased from 60 mg * Allergies: N .K.D.A.no[Allergies Verified] Objective: * Vitals: * Examination: P sychiatry: APPEARANCE: u nable to assess - telephone appointment. ATTENTION: g ood. ORIENTATION: y es , person, place and time. ATTITUDE: c ooperative , pleasant . AFFECT: a ppropriate , full range. MOOD: e uthymic . SPEECH: c lear normal/R/V/R . PSYCHOMOTOR ACTIVITY: u nable to assess - telephone appointment. ABNORMAL BODY MOVEMENTS: n one. CURRENT HOMICIDALITY: n one. CURRENT SUICIDALITY: n ot presently. THOUGHT PROCESS: i ntact. THOUGHT CONTENT: u nremarkable. PERCEPTUAL DISORDERS: n o perceptual disorder noted. INSIGHT: f air. JUDGEMENT: f air. DEGREE OF AWARENESS OF SURROUNDINGS: w ithin normal limits.? Assessment: * Assessment: 1. B ipolar 1 disorder - F31.9 (Primary) 2 . P ost-traumatic stress disorder, unspecified - F43.10 3 . G AD (generalized anxiety disorder) - F41.1 ? 4 . A DHD (attention deficit hyperactivity disorder), inattentive type - F90.0 & #160; 5 . I nsomnia - G47.00 Client doing well mentally, no changes needed at this time. Plan: * Treatment: 2. G AD (generalized anxiety disorder) Refill Venlafaxine HCl ER Capsule Extended Release 24 Hour, 75 MG, 1 capsule with food, Orally, Once a day, 30 days, 30 Capsule, Refills 1; R efill Propranolol HCl ER Capsule Extended Release 24 Hour, 120 MG, 1 capsule at bedtime, Orally, Once a day, 30 days, 30 Capsule, Refills 1, Notes to Pharmacist: increased from 60 mg. 3. A DHD (attention deficit hyperactivity disorder), inattentive type Refill Dexmethylphenidate HCl ER Capsule Extended Release 24 Hour, 15 MG, 1 capsule in the morning, Orally, Once a day., 30 days, 30, Refills 0; R efill Dexmethylphenidate HCl ER Capsule Extended Release 24 Hour, 15 MG, 1 capsule in the morning, Orally, Once a day. Please fill on or after September 29, 2024., 30 days, 30, Refills 0. 4. I nsomnia Refill Eszopiclone Tablet, 1 MG, 1 tablet immediately before bedtime, Orally, Once a day, 30 days, 30 Tablet, Refills 1; R efill QUEtiapine Fumarate Tablet, 50 MG, 0.5 - 1 tablet at bedtime, Orally, Once a day, 30 days, 30, Refills 1. 5. [place] thers Notes[place]. [...] number to the 24-hour crisis line at [facility]. Questions addressed. Client verbalized understanding of all information and is agreeable to treatment plan. * Procedure Codes: * Follow Up: 4 Weeks - 6 Weeks (Reason: Medication management - can be telehealth appt.) * * [employer] Sign off status: Completed true * Provider: Sukhjinder Romero DNP, PMP- Date: 0 09/02/2024 Generated for Amanda dodge/Faxing/eTransmitting on: 0 09/30/2024 08:11 AM CDT History and Physical Notes * HPI (History of Present Illness) Category Sub-Category Detail Notes Category Not es Depression Screening PHQ-9 Little inte rest or pleasure in doing things: Not at all Feeling down, depressed, or hopeless: Se veral days Trouble falling or staying asleep, or sl eeping too much: Several days Feeling tired or having little energy: S everal days Poor appetite or overeating: Several day s Feeling bad about yourself o r that you are a failure, or have let yourself or your family down: Several days Trouble concentrating on thi ngs, such as reading the newspaper or watching television: Not at all Moving or speaking so slowly that other people could have noticed; or the opposite, being so fidgety or restless that you have been moving around a lot more than usual: Not at all Thoughts that you would be b gala off or of hurting yourself in some way: Not at all Total Score: 5 Interpretation: Mild Depression Screening Benjamin Suicide Sev erity Rating Scale (LF) Do you want to initiate with: Screener form 1. Wish to be : Have you wished you were or wished you could go to sleep and not wake up?: No 2. Suicidal Thoughts: Have you actually had any thoughts of killing yourself?: No 6. Suicide Behavior Question: Have you ever done anything,started to do anything, or prepared to end your life?: No Interpretation:: Low Risk CSSRS Interpretation and Follow Up Plan CSSRS Interpretation and Follow Up Plan CSSRS Screen documented using SF: Yes Risk Disposition from SF: Low - No Follo w Up Plan Required Follow Up Plan: No Follow Up Plan requir ed at this time. Examination Category Sub-Category Detail Notes Category Not es Psychiatry APPEARANCE: unable to assess - telephone appointment ATTITUDE: cooperative , pleasa nt PSYCHOMOTOR ACTIVITY: unable to assess - telephone appointment ABNORMAL BODY MOVEMENTS: none ATTENTION: good DEGREE OF AWARENESS OF SURROUNDINGS: wit hin normal limits ORIENTATION: yes , person, place and time AFFECT: appropriate , full r tamraa MOOD: euthymic SPEECH: clear normal/R/V/R INSIGHT: fair JUDGEMENT: fair THOUGHT PROCESS: intact THOUGHT CONTENT: unremarkable PERCEPTUAL DISORDERS: no perceptual diso rder noted CURRENT SUICIDALITY: not presently CURRENT HOMICIDALITY: none
--- OUTSIDE RECORDS SUMMARY | 2024-09-30 08:11 | XMS_ITS ---
Author Organization [facility] Address [address] [place] [address] Care Team Providers Care Meat Supervisor Name Role Phone Boni Romero Primary Care Provider [phone] Manuelito Larson [phone] REASON FOR VISIT New Refill Request Social History Sex Assigned At : Social History Observation Description Sex Assigned At Male Encounters Encounter Location Date Provider Diagnosis [address] [address] 09/27/2024 Boni Romero Plan Of Treatment No Information Progress Notes * David POWERSDOB:1980 (44 yo M)Acc No.[id number]:09/27/2024 Patient: David ALBARADO :1980 A ge:44 Y S ex:Male Address:[address] [place], [address] * true * Date: Generated for Printi ng/Faxing/eTransmitting on: 0 09/30/2024 08:11 AM CDT
--- OUTSIDE RECORDS SUMMARY | 2024-09-30 08:11 | XMS_ITS | Clinical Summary ---
Author Organization [facility] Address [address] [place] [address] Care Team Providers Care Senior Mobile Developer Name Role Phone aSngkenishajesus albertoEmily Vicente HIDALGO Primary Care Provider + [...] mg total) by mouth nightly at bedtime. 3 Active lithium CR (LITHOBID) 450 MG tablet Take 4 tablets (1,800 mg total) by mouth nightly at bedtime. 4 Active dexmethylphenida te XR (FOCALIN XR) 15 MG 24 hr capsule Take 1 capsule (15 mg total) by mouth daily. 4 Active VRAYLAR 1.5 MG capsule Take 2 capsules (3 mg total) by mouth daily. 4 Active ondansetron (ZOFRAN) 4 MG tablet TAKE 1 TABLET BY MOUTH DAILY NEEDED FOR NAUSEA FOR 30 DAYS 4 Active buPROPion XL (WELLBUTRIN XL) 300 MG 24 hr tablet Take 1 tablet (300 mg total) by mouth every morning. 4 Active propranolol LA (INDERAL LA) 120 MG 24 hr capsule 4 Active venlafaxine XR (EFFEXOR-XR) 150 MG 24 hr capsule Take 1 capsule (150 mg total) by mouth daily. 4 Active omeprazole (PRILOSEC) 40 MG capsuleIndicatio ns:Gastroesophag eal reflux disease, unspecified whether esophagitis present Take 1 capsule twice daily for 6 weeks, then take 1 capsule daily 180 capsule 1 5 Active sucralfate (CARAFATE) 1 G tabletIndication s:Gastroesophage al reflux disease, unspecified whether esophagitis present Take 1 tablet (1 g total) by mouth 3 (three) times daily before meals. 90 tablet 2 5 Active cefdinir (OMNICEF) 300 MG Cap capsuleIndicatio ns:Subacute cough Take 1 capsule (300 mg total) by mouth 2 (two) times daily. 20 capsule 5 Active Active Problems Problem Noted Date Diagnosed [...] Encounters Date Type Department Care Team Description 09/25/2024 Telephone [facility] Family & Internal Medicine [address] [address] Emily Jade, DO Information 09/03/2024 Scan HEALTH INFO SRVCS Scanned, Doc Med Group 08/28/2024 Telephone [facility] Family & Internal [address] [address] Emily Jade, DO TCM 08/26/2024 Scan HEALTH INFO SRVCS Scanned, Doc Med Group Pathology (SCAN); EGD (SCAN) 08/25/2024 Scan [facility] HE[facility] INFO SRVCS Scanned, Doc Med Group Lab (SCAN) 08/25/2024 Scan [facility] INFO SRVCS Scanned, Doc Med Group CT (SCAN); Lab (SCAN) 08/15/2024 9:00 AM DRY CLEANING CHECKER Office Visit [address] [address] Emily Jade, DO Cough (Patient c/o cough, chest congestion, and fatigue. Patient also endorses mild sore throat, attributes this to coughing. Patient states he had pneumonia at the end of June and feels like he may not have recovered fully from it. ) 08/15/2024 Travel 08/06/2024 8:40 AM DRY CLEANING CHECKER Laboratory Only [address] [address] Emily Jade, DO 08/06/2024 - 08/06/2024 11:59 PM DRY CLEANING CHECKER Hospital Encounter [facility] [address] [place] [address] Emily Jade, DO Discharge Disposition: Home or Self Care (Routine Discharge) 08/06/2024 Travel 07/30/2024 8:40 AM DRY CLEANING CHECKER Office Visit [address] [address] Emily Jade, DO Gi Problem (The patient reports acid reflux and vomiting almost daily for 3-4 months. The patient states he has woke up with food in his mouth in the middle of the night. ) 07/30/2024 Travel 07/17/[address] [address] Emily Jade, DO Referral from Last 3 Months Immunizations Name Administration Dates Next Due Fluzone (IIV3, Trivalent, 0.5 ML Prefilled Syrin ge) 07/30/2024 Fluzone 6 Months+ Quad (0.5 mL [...] Sex Assigned at Male 07/30/2024 9:03 AM DRY CLEANING CHECKER Legal Sex Male 7:17 PM CDT Gender Identity Male 07/30/2024 9:03 AM DRY CLEANING CHECKER Sexual Orientation Not on file Occupation Industry Job Start Date Job End Date Not on file Not on file Not on file Not on file Last Filed Vital Signs Vital Sign Reading Time Taken Comments Blood Pressure 126/82 08/15/2024 9:50 AM DRY CLEANING CHECKER Pulse 72 08/15/2024 9:50 AM DRY CLEANING CHECKER Temperature 36.9 C (98.4 F) 08/15/2024 9:50 AM DRY CLEANING CHECKER Respiratory Rate 20 08/15/2024 9:50 AM DRY CLEANING CHECKER Oxygen Saturation 97% 08/15/2024 9:50 AM DRY CLEANING CHECKER Inhaled Oxygen Concentration - - Weight 129.7 kg (285 lb 14.4 oz) 08/15/2024 9:50 AM DRY CLEANING CHECKER Height 188 cm (6' 2 ) 08/15/2024 9:50 AM DRY CLEANING CHECKER Body Mass Index 36.71 08/15/2024 9:50 AM DRY CLEANING CHECKER Plan of Treatment Upcoming Encounters Date Type Department Care Team (Late st Contact Info) Description 10/07/2024 11:20 AM CDT Office Visit [facility] - [address] [place] [address] Emily Jade, [address] [place] [address] Mary Dumont NP 3 [facility] [address] [place] [address] Health Maintenance Due Date Last Done Comments Hepatitis B Vaccines (1 of 3 - 19+ 3-dose series) 1997 Annual Physical 05/09/2020 05/09/2019 Colorectal Cancer Screening Colonoscopy (10 Years) 10/18/2028 10/18/2018 DTaP, Tdap and Td Vaccines (2 - Td or Tdap) 09/02/2030 09/02/2020 Hepatitis C Completed 11/21/2021 COVID-19 Vaccine Completed 07/30/2024, , 10/31/2020, Additional history exists Influenza Adult Completed 07/30/2024, 10/03/2023 PHQ-2 (Physician [place]) Completed 07/30/2024 HPV Vaccines Aged Out No [...] Procedure Name Priority Date/Time Associated Diagnosis Comments PATHOLOGY GENERIC (SCAN ORDER) 08/26/2024 EGD GENERIC (SCAN ORDER) 08/26/2024 CT GENERIC 08/25/2024 OUTSIDE LAB COVID-19 (SCAN ORDER) Routine 08/25/2024 OUTSIDE LAB (SCAN ORDER) 08/25/2024 XR CHEST PA+LAT STAT 08/15/2024 10:32 AM DRY CLEANING CHECKER Subacute cough COLLECT.CAPILLARY (FNGR,HEEL,EAR) Routine 08/15/2024 10:15 AM DRY CLEANING CHECKER Elevated glucose HEMOGLOBIN, GLYCOSYLATED Routine 08/15/2024 Elevated glucose COLLECTION VENOUS BLOOD VENIPUNCTURE Routine 08/06/2024 8:46 AM DRY CLEANING CHECKER Anemia, unspecified type Screening for endocrine, metabolic and immunity disorder Screening for lipid disorders Annual physical exam CBC W/DIFF AUTOMATED Routine 08/06/2024 8:45 AM DRY CLEANING CHECKER Anemia, unspecified type Screening for endocrine, metabolic and immunity disorder Screening for lipid disorders Annual physical exam VITAMIN B-12 Routine 08/06/2024 8:45 AM DRY CLEANING CHECKER Anemia, unspecified type Screening for endocrine, metabolic and immunity disorder Screening for lipid disorders Annual physical exam RETICULOCYTE CT, AUTO Routine 08/06/2024 8:45 AM DRY CLEANING CHECKER Anemia, unspecified type Screening for endocrine, metabolic and immunity disorder Screening for lipid disorders Annual physical exam HAPTOGLOBIN, QUANT Routine 08/06/2024 8: 45 AM DRY CLEANING CHECKER Anemia, unspecified type Screening for endocrine, metabolic and immunity disorder Screening for lipid disorders Annual physical exam FERRITIN Routine 08/06/2024 8:45 AM DRY CLEANING CHECKER Anemia, unspecified type Screening for endocrine, metabolic and immunity disorder Screening for lipid disorders Annual physical exam IRON SAT PANEL (IRON,IBC,%SAT) Routine 08/06/2024 8:45 AM DRY CLEANING CHECKER Anemia, unspecified type Screening for endocrine, metabolic and immunity disorder Screening for lipid disorders Annual physical exam TSH W/REFLEX Routine 08/06/2024 8:45 AM DRY CLEANING CHECKER Anemia, unspecified type Screening for endocrine, metabolic and immunity disorder Screening for lipid disorders Annual physical exam COMPREHENSIVE METABOLIC PANEL Routine 08/06/2024 8:45 AM DRY CLEANING CHECKER Anemia, unspecified type Screening for endocrine, metabolic and immunity disorder Screening for lipid disorders Annual physical exam LIPID PANEL Routine 08/06/2024 8:45 AM DRY CLEANING CHECKER Anemia, unspecified type Screening for endocrine, metabolic and immunity disorder Screening for lipid disorders Annual physical exam SOLUBLE TRANSFERRIN RECEPTOR Routine 08/06/2024 8:31 AM DRY CLEANING CHECKER Anemia, unspecified type Screening for endocrine, metabolic and immunity disorder FOLIC ACID SERUM Routine 08/06/2024 8:31 AM DRY CLEANING CHECKER Anemia, unspecified type Screening for endocrine, metabolic and immunity disorder Screening for lipid disorders Annual physical exam LDH, LACTATE DEHYDROGENASE Routine 08/06/2024 8:31 AM DRY CLEANING CHECKER Anemia, unspecified type Screening for endocrine, metabolic and immunity disorder Screening for lipid disorders Annual physical exam HEPATITIS C ANTIBODY Routine 11/21/2021 7:56 AM CDT Need for hepatitis C screening test COLONOSCOPY GENERIC (SCAN ORDER) 10/18/2018 from Last 3 Months or Most Recently Relevant to Health Maintenance Results * EGD GENERIC (SCAN ORDER) (08/26/2024) 08/26/2024 [employer] [facility] Scanned SCANNING Final Resu lt * PATHOLOGY GENERIC (SCAN ORDER) (08/26/2024) 08/26/2024 Result [employer] [facility] Scanned SCANNING Final Resu lt * OUTSIDE LAB COVID-19 (08/25/2024) CORONAVIRUS SARS COV 2 PCR (RESP) NOT DETECTED NOT DETECTED [facility] 08/25/2024 Result [employer] [facility] Scanned SCANNING Final Resu lt [facility] * CT GENERIC (08/25/2024) Anatomical Region Laterality Modality Other 08/25/2024 Result [employer] [facility] Scanned SCANNING Final Resu lt * OUTSIDE LAB (SCAN ORDER) (08/25/2024) 08/25/2024 [facility] Scanned SCANNING Final Resu lt * XR CHEST PA+LAT (08/15/2024 10:32 AM DRY CLEANING CHECKER) Anatomical Region Laterality Modality Chest Radiographic Shaye ging 08/15/2024 10:3 5 AM DRY CLEANING CHECKER Impressions 08/15/2024 10:36 AM DRY CLEANING CHECKER IMPRESSION: 1. No radiographic evidence of active chest disease. 2. Potential hiatal hernia. Ordered By: EMILY JADE Interpreted By: Toi Vazquez MD, 08/15/2024 10:35 AM Narrative 08/15/2024 10:36 AM DRY CLEANING CHECKER [facility] [place] [address] Examination: XR CHEST PA+LAT Exam time: 08/15/2024 [...] Procedure Note Toi Vazquez MD - 08/15/2024 [facility] [place] [address] Examination: XR CHEST PA+LAT Exam time: 08/15/2024 [...] (BACK OFFICE) (08/15/2024) HGB A1C 6.2(A) % [facility] 08/15/2024 Emily Jade DO LABORATORY Final Re sult Performing Organization Address [facility]/ZIP Co de Phone Number [facility] [address] [place] [address], * TSH W/REFLEX (08/06/2024 8:45 AM DRY CLEANING CHECKER) TSH 1.455 0.358 - 3.740 uIU/ML 08/06/2024 5:23 PM DRY CLEANING CHECKER [facility] 08/06/2024 8:45 AM DRY CLEANING CHECKER Emily Jade DO LABORATORY Final Re sult Performing Organization Address City/[facility]/ZIP Co de Phone Number [facility] [address] [place] [address], [place] [phone] * IRON SAT PANEL (IRON,IBC,%SAT) (08/06/2024 8:45 AM DRY CLEANING CHECKER) IRON 107 65 - 175 MCG/DL 08/06/2024 5:23 PM DRY CLEANING CHECKER [facility] IRON BINDING CAPACITY 318 250 - 450 MCG/DL 08/06/2024 5:23 PM DRY CLEANING CHECKER [facility] IRON SATURATION 34 % 5:23 PM DRY CLEANING CHECKER [facility] Comment:REFERENCE RANGE NOT ESTABLISHED 08/06/2024 8:45 AM DRY CLEANING CHECKER Emily Jade DO LABORATORY Final Re sult Performing Organization Address City/[facility]/ZIP Co de Phone Number [facility] [address] [place] [address], [place] [phone] * VITAMIN B-12 (08/06/2024 8:45 AM DRY CLEANING CHECKER) VITAMIN B12 S/P/B 353 193 - 986 PG/ML 08/06/2024 5:23 PM DRY CLEANING CHECKER [facility] 08/06/2024 8:45 AM DRY CLEANING CHECKER Emily Jade DO LABORATORY Final Re sult Performing Organization Address City/[facility]/ZIP Co de Phone Number [facility] [address] [place] [address], [place] [phone] * RETICULOCYTE CT, AUTO (08/06/2024 8:45 AM DRY CLEANING CHECKER) RETICULOCYTE COUNT 2.0 0.7 - 2.3 % 08/06/2024 5:24 PM DRY CLEANING CHECKER [facility] ABSOLUTE RETICULOCYTE 0.10 0.03 - 0.11 x10'6/uL 08/06/2024 5:24 PM DRY CLEANING CHECKER [facility] IMMATURE RETIC FRACTION 11.5 2.3 - 13.4 % 08/06/2024 5:24 PM DRY CLEANING CHECKER [facility] RETIC HGB 34.5 28.0 - 35.0 PG 08/06/2024 5:24 PM DRY CLEANING CHECKER [facility] 08/06/2024 8:45 AM DRY CLEANING CHECKER Emily Jade LABORATORY Final Re sult Performing Organization Address City/[facility]/ZIP Co de Phone Number [facility] [address] [place] [address], [place] [phone] * (ABNORMAL) HAPTOGLOBIN, QUANT (08/06/2024 8:45 AM DRY CLEANING CHECKER) HAPTOGLOBIN 269.0(H) 30.0 - 200.0 MG/DL 08/06/2024 5:37 PM DRY CLEANING CHECKER [facility] 08/06/2024 8:45 AM DRY CLEANING CHECKER Emily Jade LABORATORY Final Re sult Performing Organization Address [facility] Co de Phone Number [facility] [address] [place] [address], [place] [phone] * (ABNORMAL) COMPREHENSIVE METABOLIC PANEL (08/06/2024 8:45 AM DRY CLEANING CHECKER) SODIUM S/P/B 135(L) 136 - 145 MMOL/L 08/06/2024 5:23 PM DRY CLEANING CHECKER [facility] POTASSIUM S/P/B 4.3 3.5 - 5.1 MMOL/L 08/06/2024 5:23 PM DRY CLEANING CHECKER [facility] CHLORIDE S/P/B 101 98 - 107 MMOL/L 08/06/2024 5:23 PM DRY CLEANING CHECKER [facility] CO2 25.6 21 - 32 MMOL/L 08/06/2024 5:23 PM DRY CLEANING CHECKER [facility] GLUCOSE 117(H) 70 - 99 MG/DL 08/06/2024 5:23 PM DRY CLEANING CHECKER [facility] BUN 9 7 - 18 MG/DL 08/06/2024 5:23 PM DRY CLEANING CHECKER [facility] CREATININE S/P/B 0.98 0.70 - 1.30 MG/DL 08/06/2024 5:23 PM [facility] CALCIUM S/P/B 8.5 8.4 - 10.5 MG/DL 08/06/2024 5:23 PM [facility] BILIRUBIN TOTAL S/P/B 0.7 0.2 - 1.0 MG/DL 08/06/2024 5:23 PM [facility] ALKALINE PHOSPHATASE S/P/B 102 45 - 115 U/L 08/06/2024 5:23 PM [facility] AST 64(H) 15 - 37 U/L 08/06/2024 5:23 PM [facility] ALT 132(H) 16 - 63 U/L 08/06/2024 5:23 PM [facility] TOTAL PROTEIN S/P/B 6.8 6.4 - 8.2 G/DL 08/06/2024 5:23 PM [facility] ALBUMIN S/P/B 3.7 3.4 - 5.0 G/DL 08/06/2024 5:23 PM [facility] ANION GAP 8.4 5 - 15 MMOL/L 08/06/2024 5:23 PM [facility] Comment:REFERENCE RANGE NOT ESTABLISHED OSMOLALITY (CALC) 280 MOSM/KG 025 5:23 PM [facility] Comment:REFERENCE RANGE NOT ESTABLISHED GFR ESTIMATE >90 >90 ML/MIN/1. 73 M2 08/06/2024 5:23 PM [facility] GFR NOTES GFR REFERENCE S: 08/06/2024 5:23 PM [facility] Comment: THE ESTIMATED GFR IS [...] FAILURE: <15 ml/min/1.73 m2 08/06/2024 8:45 AM DRY CLEANING CHECKER Emily Jade DO LABORATORY Final Re sult Performing Organization Address City/[facility]/ZIP Co de Phone Number [facility] [address] [place] [address], * LIPID PANEL (08/06/2024 8:45 AM DRY CLEANING CHECKER) CHOLESTEROL 157 <200 MG/DL 08/06/2024 5:23 PM DRY CLEANING CHECKER [facility] TRIGLYCERIDES 127 <150 MG/DL 08/06/2024 5:23 PM DRY CLEANING CHECKER [facility] HDL 42 >40 MG/DL 08/06/2024 5:23 PM DRY CLEANING CHECKER [facility] LDL-C 90 <100 MG/DL 08/06/2024 5:23 PM DRY CLEANING CHECKER [facility] VLDL CALCULATION 25 5 - 28 MG/DL 08/06/2024 5:23 PM DRY CLEANING CHECKER [facility] CHOL/HDL RATIO 3.7 0.0 - 4.0 08/06/2024 5:23 PM [facility] LDL/HDL 2.1 0.41 - 2.13 08/06/2024 5:23 PM DRY CLEANING CHECKER [facility] NON HDL CHOLESTEROL 115 <140 MG/DL 08/06/2024 5:23 PM DRY CLEANING CHECKER [facility] 08/06/2024 8:45 AM DRY CLEANING CHECKER Emily Jade DO LABORATORY Final Re sult [facility] [address] [address], [place] [phone] * (ABNORMAL) CBC W/DIFF AUTOMATED (08/06/2024 8:45 AM DRY CLEANING CHECKER) [facility] WBC 7.38 4.00 - 10.80 x10'3/uL 08/06/2024 2:56 PM DRY CLEANING CHECKER [facility] RBC 4.95 4.50 - 6.10 x10'6/uL 08/06/2024 2:56 PM [facility] HGB 15.4 13.0 - 18.0 G/DL 08/06/2024 2:56 PM [facility] HCT 45.8 37.0 - 52.0 % 08/06/2024 2:56 PM [facility] MCV 92.5 78.0 - 100.0 FL 08/06/2024 2:56 PM [facility] MCH 31.1(H) 27.0 - 31.0 PG 08/06/2024 2:56 PM [facility] MCHC 33.6 33.0 - 36.0 G/DL 08/06/2024 2:56 PM [facility] RDW 12.9 11.5 - 14.5 % 08/06/2024 2:56 PM [facility] PLT 305 150 - 350 x10'3/uL 08/06/2024 2:56 PM [facility] MPV 9.3 7.4 - 10.4 FL 08/06/2024 2:56 PM [facility] DIFFERENTIAL TYPE AUTOMATED DIFFERENTIAL 08/06/2024 2:56 PM [facility] NEUTROPHILS % 66.1 % 08/06/2024 2:56 PM [facility] LYMPHOCYTES % 21.1 % 08/06/2024 2:56 PM [facility] MONOCYTES % 9.5 % 08/06/2024 2:56 PM DRY CLEANING CHECKER [facility] EOSINOPHILS % 2.4 % 08/06/2024 2:56 PM DRY CLEANING CHECKER [facility] BASOPHILS % 0.4 % 08/06/2024 2:56 PM DRY CLEANING CHECKER [facility] IMMATURE GRANS % 0.5 % 08/06/2024 2:56 PM DRY CLEANING CHECKER [facility] ABS. NEUTROPHILS 4.87 1.60 - 8.30 x10'3/uL 08/06/2024 2:56 PM DRY CLEANING CHECKER [facility] ABS. LYMPHOCYTES 1.56 0.80 - 4.70 x10'3/uL 08/06/2024 2:56 PM DRY CLEANING CHECKER [facility] ABS. MONOCYTES 0.70 0.00 - 1.50 x10'3/uL 08/06/2024 2:56 PM DRY CLEANING CHECKER [facility] ABS. EOSINOPHILS 0.18 0.00 - 0.40 x10'3/uL 08/06/2024 2:56 PM DRY CLEANING CHECKER [facility] ABS. BASOPHILS 0.03 0.00 - 0.20 x10'3/uL 08/06/2024 2:56 PM DRY CLEANING CHECKER [facility] ABS. IMMATURE GRANULOCYTES 0.04(H) 0.00 - 0.03 x10'3/uL 08/06/2024 2:56 PM DRY CLEANING CHECKER [facility] 08/06/2024 8:45 AM DRY CLEANING CHECKER us Emily Jade DO LABORATORY Final Re sult [facility] [address] [place] [address], * FERRITIN (08/06/2024 8:45 AM DRY CLEANING CHECKER) FERRITIN 199.0 26 - 388 NG/ML 08/06/2024 5:23 PM DRY CLEANING CHECKER [facility] 08/06/2024 8:45 AM DRY CLEANING CHECKER Emily Jade DO LABORATORY Final Re sult Performing Organization Address [facility]/ZIP Co de Phone Number [facility] [address] [place] [address], * SOLUBLE TRANSFERRIN RECEPTOR (08/06/2024 8:31 AM DRY CLEANING CHECKER) SOLUBLE TRANSFERRIN RECEPTOR 1.70 0.76 - 1.76 mg/L [facility] 08/06/2024 8:31 AM DRY CLEANING CHECKER 08/07/2024 6:06 AM DRY CLEANING CHECKER Narrative Resulting Agency Comment Performing Organization Information: Site ID: [id number] Name: [employer], Address: [address] [place], [place] [id number] Director: Radha Kellogg MD,PhD,VALDO Emily Jade DO LABORATORY Final Re sult Performing Organization Address [facility] Co de Phone Number [facility] [employer] [facility] [address] [address] * LDH, LACTATE DEHYDROGENASE (08/06/2024 8:31 AM DRY CLEANING CHECKER) LDH 213 87 - 241 UNITS/L 08/06/2024 5:34 PM DRY CLEANING CHECKER [facility] 08/06/2024 8:31 AM DRY CLEANING CHECKER Emily Jade DO LABORATORY Final Re sult Performing Organization Address City/[facility]/ZIP Co de Phone Number [facility] [address] [place] [address], [phone] * FOLIC ACID SERUM (08/06/2024 8:31 AM DRY CLEANING CHECKER) FOLATE 16.3 8.6 - 58.9 NG/ML 08/06/2024 4:06 PM DRY CLEANING CHECKER [facility] 08/06/2024 8:31 AM DRY CLEANING CHECKER Emily Jade DO LABORATORY Final Re sult Performing Organization Address City/[facility] Co de Phone Number [facility] [address] [place] [address], [place] [phone] * HEPATITIS C ANTIBODY (11/21/2021 7:56 AM CDT) Pathologist [facility] HEPATITIS C AB NON-REACTI VE NON-REACT [place] 11/21/2021 6:32 PM CDT [facility] Comment: ANTIBODIES TO HCV NOT DETECTED. DOES NOT EXCLUDE THE POSSIBILITY OF EXPOSURE TO HCV. 11/21/2021 7:56 AM CDT Emily Jade DO LABORATORY Final Re sult Performing Organization Address City/[facility] Co de Phone Number [facility] [address] [place] [address], [place] [phone] * COLONOSCOPY GENERIC (SCAN ORDER) (10/18/2018) 10/18/2018 [facility] Scanned SCANNING Final Resu lt from Last 3 Months or Most Recently Relevant to Health Maintenance Insurance [facility] Care Teams Senior Mobile Developer Relationship Specialty Start Date End Date Emily Jade DO [address] [place] [address] [phone] PCP - General FAMILY PRACTICE 05/09/19
--- OUTSIDE RECORDS SUMMARY | 2024-09-30 08:11 | XMS_ITS ---
Author Organization [facility]ly [facility] Address [address] [place] [address] Care Team Providers Care Donor Services Manager Name Role Phone Boni Romero Primary Care Provider [phone] Manuelito Larson [phone] REASON FOR VISIT New Refill Request Social History Sex Assigned At : Social History Observation Description Sex Assigned At Male Encounters Encounter Location Date Provider Diagnosis [address] [address] 09/03/2024 Boni Romero Plan Of Treatment No Information Progress Notes * David POWERSDOB:1980 (43 yo M)Acc No.[id number]:09/03/2024 Patient: David ALBARADO :1980 A ge:43 Y S ex:Male Address:[address] [place], [address] * true * Date: Generated for Printi ng/Faxing/eTransmitting on: 0 09/30/2024 08:11 AM CDT
--- OUTSIDE RECORDS SUMMARY | 2024-09-30 08:12 | XMS_ITS | Data Portability ---
Author Organization ID - [facility] , [facility] Address [address] [place] [address] Assessment Encounter Date Assessment Date Assessment LastModified [...] 40 mg tablet,del ayed release 2023 024 [facility]/Pharmacy #[id number], [address], [place], [address], 18:51:55 Patient TargetsNo targets recorded. Patient Instructions Encounter Date Encounter Id Patient Instructions Last Modified By Organization Details Last Modified Time 05/26/2024 [id number] gastroesophageal reflux disease (GERD): care instructions Not [...] enidate ER 15 mg capsule,ext ended release vbkryaes22- 50 TAKE 1 CAPSULE BY MOUTH EVERY [...] SNOMED-CT Code Diagnosis ICD10 Code Diagnosis Note [id number] SHILOH May [facility] [address] [place] [address] 05/26/2024 18:25:00 05/27/2024 00:42:22 Gastroesophageal reflux disease 018387795 K21.9 Health Concerns Section Related Observation LastModified by Organization Detai ls LastModified Time None Recorded Concern Status LastModified by Organization Details LastModified Time None Recorded Advance Directives Directive None Recorded Payers Encounter Date Sequence Insurance Name Policy Number Policy Zambrano Covered Member ID Zambrano Member ID Guarantor Name 05/26/[address] [facility] [id number] David Rider [id number] David Rider 05/26/2024 3 *SELF PAY* [id number] David Rider [id number] David Rider Notes Date Note Type Note [...] following state at the time of visit: [place]. The patient consents to the use of FitStar technology. Previous visits and labs reviewed, if available.Patient at time of visit located in: [place] HPI: pt reports he has been having [...] medications:- Hoarseness:+ Dental concerns:- Additional symptoms:- ERNESTO [address], [place], [address], [facility] 05/26/2024 18:55:05
--- OUTSIDE RECORDS SUMMARY | 2024-09-30 08:12 | XMS_ITS | Clinical Summary ---
Author Organization [facility] Address [address] [place] [address] Care Team Providers Care Wine Steward/Stewardess Name Role Phone Yasmin Haris Zhang DO Primary Care Provider + Source Comments [facility],non-owned Affiliates and Associated Physician Practices is amultiple site organization consisting of ambulatory clinics and hospital sitesin [place], [place], [place] and [place]. This disclosure is being madepursuant to the Care Everywhere program and may not contain all information available regarding this patient. Last updated 18.[facility] Allergies No known active allergies Medications * Be aware that medications may not be up to date on this document. Alwaysverify current medications with the patient. Medication Sig Dispensed Refills Start Date End Date Status Cholecalciferol (VITAMIN D PO) Active fluticasone propionate (FLONASE ALLERGY RELIEF) 50 MCG/ACT nasal sprayIndications:Al lergic Rhinitis [place] 2 sprays into each nostril once daily [...] complete this topic MENINGOCOCCAL (Group B) VACCINE SHARED DECISION-MAKING Aged Out No longer eligible based on patient's age to complete this topic MENINGOCOCCAL GROUPS A/C/Y/W VACCINE Aged Out No longer eligible b [...] COMPREHENSIVE METABOLIC PANEL (05/04/2022 9:45 AM CDT) [facility] Glucose 97 70 - 105 [...] - 8.3 gm/dL 05/04/2022 10:10 AM CDT [facility] Albumin 4.4 3.5 - 5.2 gm/dL 05/04/2022 10:10 AM CDT [facility] Bilirubin Total 0.7 0.2 - 1.2 mg/dL 05/04/2022 10:10 AM T [facility] eGFR by CKD-EPI >90 >=90 mL/min/1.7 3 m2 05/04/2022 10:10 AM T [facility] Blood BLOOD SPECIMEN / Unknown Venipuncture / Unknown 05/04/2022 9:45 AM CDT 05/04/2022 9:49 AM CDT Disha Mojica PA-C LAB - CHEMISTRY ORDERABLES [facility] [address] [place] [address] from Last 3 Months or Most Recently Relevant to Health Maintenance Care Teams Wine Steward/Stewardess Relationship Specialty Start Date End Date Haris Hoffman DO PCP - General 05/23/19
== END 2024-09-30 07:59 | disposition home or self-care (01) ==
PROVIDERS: PCP Student in an Organized Health Care Education/Training Program; Visit Provider Surgery
DX: R10.13 Epigastric pain (principal); K76.0 Fatty (change of) liver, not elsewhere classified
CPT/HCPCS: 76705

== ENCOUNTER 2024-10-02 08:35 | Outpatient (CLI) | payer OTHER, SELFPAY ==
--- NOTE | ~2024-10-02 | XR_ITS ---
EXAMINATION: XR UGI w esoph water soluble DATE: 10/02/2024 09:37 INDICATION: Diaphragmatic hernia without obstruction TECHNIQUE: The patient drank water-soluble contrast. Fluoroscopic spot radiographs of the hypopharynx , esophagus, stomach and proximal small bowel were obtained. Fluoroscopy exposure time was 2.5 minute s. A total of 1543 images were recorded. Total DAP was 28.5 Gycm^2. COMPARISON: None. FINDINGS: The pharynx is symmetric and without evidence of mass lesion or mucosal irregularity. The esophagus i s normal without mass or stricture. Esophageal motility is normal. There is a moderate-sized hiatal h ernia with gastroesophageal junction approximately 6-7 cm above the level of the diaphragm. There was recurrent gastroesophageal reflux of a large amount of contrast which extends to the proximal thorac ic esophagus with provocative maneuvers. The stomach and proximal small bowel are otherwise normal. IMPRESSION: 1. Moderate-sized sliding-type hiatal hernia with significant recurrent gastroesophageal reflux with provocative maneuvers. Reviewed, dictated and finalized at location A. IMPRESSION: 1. Moderate-sized sliding-type hiatal hernia with significant recurrent gastroe sophageal reflux with provocative maneuvers.
--- OUTSIDE RECORDS SUMMARY | 2024-10-02 08:43 | XMS_ITS ---
Author Organization [facility] Address [address] [place] [address] Care Team Providers Care Fire Hose Curer Name Role Phone Boni Romero Primary Care Provider Manuelito Larson [phone] REASON FOR VISIT New Refill Request Social History Sex Assigned At : Social History Observation Description Sex Assigned At Male Encounters Encounter Location Date Provider Diagnosis [address] [address] 09/27/2024 Boni Romero Plan Of Treatment Next Appt Details Provider Name:Boni Nuno , 10/02/2024 03:00:00 PM, [address] [place], [address], Progress Notes * David POWERSDOB:1980 (44 yo M)Acc No.[id number]:09/27/2024 Patient: David ALBARADO :1980 A ge:44 Y S ex:Male [address] [place], [address] * true * Date: Generated for Printi ng/Faxing/eTransmitting on: 0 10/02/2024 08:43 AM CDT
--- OUTSIDE RECORDS SUMMARY | 2024-10-02 08:43 | XMS_ITS | Clinical Summary ---
Author Organization [facility] Address [address] [place] [address] Care Team Providers Care Human Resources Executive Assistant Name Role Phone Sangkenishajesus albertoEmily Vicente HIDALGO [...] Type Department Care Team Description 09/25/2024 Telephone [facility] Family & Internal Medicine [address] [address] Emily Jade, DO Information 09/03/2024 Scan HEALTH INFO SRVCS Scanned, Doc [facility] 08/28/2024 Telephone [facility] Family & Internal [address] [address] Emily Jade, DO TCM 08/26/2024 Scan HEALTH INFO SRVCS Scanned, Doc Med [facility] Pathology (SCAN); EGD (SCAN) 08/25/2024 Scan MG HEALTH INFO SRVCS Scanned, Doc Med Group Lab (SCAN) 08/25/2024 Scan [facility] INFO SRVCS Scanned, Doc Med Group CT (SCAN); Lab (SCAN) 08/15/2024 9:00 AM LINER INSERTER Office Visit [address] [address] Emily Jade, DO Cough (Patient c/o cough, chest congestion, and fatigue. Patient also endorses mild sore throat, attributes this to coughing. Patient states he had pneumonia at the end of June and feels like he may not have recovered fully from it. ) 08/15/2024 Travel 08/06/2024 8:40 AM LINER INSERTER Laboratory Only [address] [address] Emily Jade, DO 08/06/2024 - 08/06/2024 11:59 PM LINER INSERTER Hospital Encounter [facility] [address] [place] [address] Emily Jade, DO Discharge Disposition: Home or Self Care (Routine Discharge) 08/06/2024 Travel 07/30/2024 8:40 AM LINER INSERTER Office Visit [address] [address] Emily Jade, DO Gi Problem (The patient reports acid reflux and vomiting almost daily for 3-4 months. The patient states he has woke up with food in his mouth in the middle of the night. ) 07/30/2024 Travel 07/17/[address] [address] Emily Jade, DO Referral from Last 3 [...] Sex Assigned at Male 07/30/2024 9:03 AM LINER INSERTER Legal Sex Male 7:17 PM CDT Gender Identity Male 07/30/2024 9:03 AM LINER INSERTER Sexual Orientation Not on file Occupation Industry Job Start Date Job End Date Not on file Not on file Not on file Not on file Last Filed Vital Signs Vital Sign Reading Time Taken Comments Blood Pressure 126/82 08/15/2024 9:50 AM LINER INSERTER Pulse 72 08/15/2024 9:50 AM LINER INSERTER Temperature 36.9 C (98.4 F) 08/15/2024 9:50 AM LINER INSERTER Respiratory Rate 20 08/15/2024 9:50 AM LINER INSERTER Oxygen Saturation 97% 08/15/2024 9:50 AM LINER INSERTER Inhaled Oxygen Concentration - - Weight 129.7 kg (285 lb 14.4 oz) 08/15/2024 9:50 AM LINER INSERTER Height 188 cm (6' 2 ) 08/15/2024 9:50 AM LINER INSERTER Body Mass Index 36.71 08/15/2024 9:50 AM LINER INSERTER Plan of Treatment Upcoming Encounters Date Type Department Care Team (Late st Contact Info) Description 10/07/2024 11:20 AM CDT Office Visit [facility] Medical Group Multispecialty Care - [address] [place] [address] Emily Jade, [address] [place] [address] Mary Dumont NP 3 [facility] [address] [place] [address] Health Maintenance Due Date Last Done Comments Hepatitis B Vaccines (1 of 3 - 19+ 3-dose series) 1997 Annual Physical 05/09/2020 05/09/2019 Colorectal Cancer Screening Colonoscopy (10 Years) 10/18/2028 10/18/2018 DTaP, Tdap and Td Vaccines (2 - Td or Tdap) 09/02/2030 09/02/2020 Hepatitis C Completed 11/21/2021 COVID-19 Vaccine Completed 07/30/2024, , 10/31/2020, Additional history exists Influenza Adult Completed 07/30/2024, 10/03/2023 PHQ-2 (Physician Tyler) Completed 07/30/2024 HPV Vaccines Aged Out No [...] XR CHEST PA+LAT STAT 08/15/2024 10:32 AM LINER INSERTER Subacute cough COLLECT.CAPILLARY (FNGR,HEEL,EAR) Routine 08/15/2024 10:15 AM LINER INSERTER Elevated glucose HEMOGLOBIN, GLYCOSYLATED Routine 08/15/2024 Elevated glucose COLLECTION VENOUS BLOOD VENIPUNCTURE Routine 08/06/2024 8:46 AM LINER INSERTER Anemia, unspecified type Screening for endocrine, metabolic and immunity disorder Screening for lipid disorders Annual physical exam CBC W/DIFF AUTOMATED Routine 08/06/2024 8:45 AM LINER INSERTER Anemia, unspecified type Screening for endocrine, metabolic and immunity disorder Screening for lipid disorders Annual physical exam VITAMIN B-12 Routine 08/06/2024 8:45 AM LINER INSERTER Anemia, unspecified type Screening for endocrine, metabolic and immunity disorder Screening for lipid disorders Annual physical exam RETICULOCYTE CT, AUTO Routine 08/06/2024 8:45 AM LINER INSERTER Anemia, unspecified type Screening for endocrine, metabolic and immunity disorder Screening for lipid disorders Annual physical exam HAPTOGLOBIN, QUANT Routine 08/06/2024 8: 45 AM LINER INSERTER Anemia, unspecified type Screening for endocrine, metabolic and immunity disorder Screening for lipid disorders Annual physical exam FERRITIN Routine 08/06/2024 8:45 AM LINER INSERTER Anemia, unspecified type Screening for endocrine, metabolic and immunity disorder Screening for lipid disorders Annual physical exam IRON SAT PANEL (IRON,IBC,%SAT) Routine 08/06/2024 8:45 AM LINER INSERTER Anemia, unspecified type Screening for endocrine, metabolic and immunity disorder Screening for lipid disorders Annual physical exam TSH W/REFLEX Routine 08/06/2024 8:45 AM LINER INSERTER Anemia, unspecified type Screening for endocrine, metabolic and immunity disorder Screening for lipid disorders Annual physical exam COMPREHENSIVE METABOLIC PANEL Routine 08/06/2024 8:45 AM LINER INSERTER Anemia, unspecified type Screening for endocrine, metabolic and immunity disorder Screening for lipid disorders Annual physical exam LIPID PANEL Routine 08/06/2024 8:45 AM LINER INSERTER Anemia, unspecified type Screening for endocrine, metabolic and immunity disorder Screening for lipid disorders Annual physical exam SOLUBLE TRANSFERRIN RECEPTOR Routine 08/06/2024 8:31 AM LINER INSERTER Anemia, unspecified type Screening for endocrine, metabolic and immunity disorder FOLIC ACID SERUM Routine 08/06/2024 8:31 AM LINER INSERTER Anemia, unspecified type Screening for endocrine, metabolic and immunity disorder Screening for lipid disorders Annual physical exam LDH, LACTATE DEHYDROGENASE Routine 08/06/2024 8:31 AM LINER INSERTER Anemia, unspecified type Screening for endocrine, metabolic and immunity disorder Screening for lipid disorders Annual physical exam HEPATITIS C ANTIBODY Routine 11/21/2021 7:56 AM CDT Need for hepatitis C screening test COLONOSCOPY GENERIC (SCAN ORDER) 10/18/2018 from Last 3 Months or Most Recently Relevant to Health Maintenance Results * EGD GENERIC (SCAN ORDER) (08/26/2024) 08/26/2024 [employer] [facility] Scanned SCANNING Final Resu lt * PATHOLOGY GENERIC (SCAN ORDER) (08/26/2024) 08/26/2024 Result [employer] [facility] Scanned SCANNING Final Resu lt * OUTSIDE LAB COVID-19 (08/25/2024) CORONAVIRUS SARS COV 2 PCR (RESP) NOT DETECTED NOT DETECTED [facility] 08/25/2024 Result [employer] [facility] Scanned SCANNING Final Resu lt [facility] * CT GENERIC (08/25/2024) Anatomical Region Laterality Modality Other 08/25/2024 Result [employer] [facility] Scanned SCANNING Final Resu lt * OUTSIDE LAB (SCAN ORDER) (08/25/2024) 08/25/2024 [facility] Scanned SCANNING Final Resu lt * XR CHEST PA+LAT (08/15/2024 10:32 AM LINER INSERTER) Anatomical Region Laterality Modality Chest Radiographic Shaye ging 08/15/2024 10:3 5 AM LINER INSERTER Impressions 08/15/2024 10:36 AM LINER INSERTER IMPRESSION: 1. No radiographic evidence of active chest disease. 2. Potential hiatal hernia. Ordered By: EMILY JADE Interpreted By: Toi Vazquez MD, 08/15/2024 10:35 AM Narrative 08/15/2024 10:36 AM LINER INSERTER [facility] [place] [address] Examination: XR CHEST PA+LAT Exam time: 08/15/2024 [...] Procedure Note Toi Vazquez MD - 08/15/2024 [facility] and Internal [facility] [place] [address] Examination: XR CHEST PA+LAT Exam time: 08/15/2024 [...] (BACK OFFICE) (08/15/2024) HGB A1C 6.2(A) % [facility] 08/15/2024 Emily Jade DO LABORATORY Final Re sult Performing Organization Address [facility]/ZIP Co de Phone Number [facility] [address] [place] [address], * TSH W/REFLEX (08/06/2024 8:45 AM LINER INSERTER) TSH 1.455 0.358 - 3.740 uIU/ML 08/06/2024 5:23 PM LINER INSERTER [facility] 08/06/2024 8:45 AM LINER INSERTER Emily Jade DO LABORATORY Final Re sult Performing Organization Address City/[facility]/ZIP Co de Phone Number [facility] [address] [place] [address], [place] [phone] * IRON SAT PANEL (IRON,IBC,%SAT) (08/06/2024 8:45 AM LINER INSERTER) IRON 107 65 - 175 MCG/DL 08/06/2024 5:23 PM LINER INSERTER [facility] IRON BINDING CAPACITY 318 250 - 450 MCG/DL 08/06/2024 5:23 PM LINER INSERTER [facility] IRON SATURATION 34 % 5:23 PM LINER INSERTER [facility] Comment:REFERENCE RANGE NOT ESTABLISHED 08/06/2024 8:45 AM LINER INSERTER Emily Jade DO LABORATORY Final Re sult Performing Organization Address City/[facility]/ZIP Co de Phone Number [facility] [address] [place] [address], [place] [phone] * VITAMIN B-12 (08/06/2024 8:45 AM LINER INSERTER) VITAMIN B12 S/P/B 353 193 - 986 PG/ML 08/06/2024 5:23 PM LINER INSERTER [facility] 08/06/2024 8:45 AM LINER INSERTER Emily Jade DO LABORATORY Final Re sult Performing Organization Address City/[facility]/ZIP Co de Phone Number [facility] [address] [place] [address], [place] [phone] * RETICULOCYTE CT, AUTO (08/06/2024 8:45 AM LINER INSERTER) RETICULOCYTE COUNT 2.0 0.7 - 2.3 % 08/06/2024 5:24 PM LINER INSERTER [facility] ABSOLUTE RETICULOCYTE 0.10 0.03 - 0.11 x10'6/uL 08/06/2024 5:24 PM LINER INSERTER [facility] IMMATURE RETIC FRACTION 11.5 2.3 - 13.4 % 08/06/2024 5:24 PM LINER INSERTER [facility] RETIC HGB 34.5 28.0 - 35.0 PG 08/06/2024 5:24 PM LINER INSERTER [facility] 08/06/2024 8:45 AM LINER INSERTER Emily Jade LABORATORY Final Re sult Performing Organization Address City/[facility]/ZIP Co de Phone Number [facility] [address] [place] [address], [place] [phone] * (ABNORMAL) HAPTOGLOBIN, QUANT (08/06/2024 8:45 AM LINER INSERTER) HAPTOGLOBIN 269.0(H) 30.0 - 200.0 MG/DL 08/06/2024 5:37 PM LINER INSERTER [facility] 08/06/2024 8:45 AM LINER INSERTER Emily Jade LABORATORY Final Re sult Performing Organization Address [facility] Co de Phone Number [facility] [address] [place] [address], [place] [phone] * (ABNORMAL) COMPREHENSIVE METABOLIC PANEL (08/06/2024 8:45 AM LINER INSERTER) SODIUM S/P/B 135(L) 136 - 145 MMOL/L 08/06/2024 5:23 PM LINER INSERTER [facility] POTASSIUM S/P/B 4.3 3.5 - 5.1 MMOL/L 08/06/2024 5:23 PM LINER INSERTER [facility] CHLORIDE S/P/B 101 98 - 107 MMOL/L 08/06/2024 5:23 PM LINER INSERTER [facility] CO2 25.6 21 - 32 MMOL/L 08/06/2024 5:23 PM LINER INSERTER [facility] GLUCOSE 117(H) 70 - 99 MG/DL 08/06/2024 5:23 PM LINER INSERTER [facility] BUN 9 7 - 18 MG/DL 08/06/2024 5:23 PM LINER INSERTER [facility] CREATININE S/P/B 0.98 0.70 - 1.30 MG/DL 08/06/2024 5:23 PM [facility] CALCIUM S/P/B 8.5 8.4 - 10.5 MG/DL 08/06/2024 5:23 PM [facility] BILIRUBIN TOTAL S/P/B 0.7 0.2 - 1.0 MG/DL 08/06/2024 5:23 PM [facility] ALKALINE PHOSPHATASE S/P/B 102 45 - 115 U/L 08/06/2024 5:23 PM [facility] AST 64(H) 15 - 37 U/L 08/06/2024 5:23 PM [facility] ALT 132(H) 16 - 63 U/L 08/06/2024 5:23 PM [facility] TOTAL PROTEIN S/P/B 6.8 6.4 - 8.2 G/DL 08/06/2024 5:23 PM [facility] ALBUMIN S/P/B 3.7 3.4 - 5.0 G/DL 08/06/2024 5:23 PM [facility] ANION GAP 8.4 5 - 15 MMOL/L 08/06/2024 5:23 PM [facility] Comment:REFERENCE RANGE NOT ESTABLISHED OSMOLALITY (CALC) 280 MOSM/KG 025 5:23 PM [facility] Comment:REFERENCE RANGE NOT ESTABLISHED GFR ESTIMATE >90 >90 ML/MIN/1. 73 M2 08/06/2024 5:23 PM [facility] GFR NOTES GFR REFERENCE S: 08/06/2024 5:23 PM [facility] Comment: THE ESTIMATED GFR IS CALCULATED [...] FAILURE: <15 ml/min/1.73 m2 08/06/2024 8:45 AM LINER INSERTER Emily Jade DO LABORATORY Final Re sult Performing Organization Address City/[facility]/ZIP Co de Phone Number [facility] [address] [place] [address], * LIPID PANEL (08/06/2024 8:45 AM LINER INSERTER) CHOLESTEROL 157 <200 MG/DL 08/06/2024 5:23 PM LINER INSERTER [facility] TRIGLYCERIDES 127 <150 MG/DL 08/06/2024 5:23 PM LINER INSERTER [facility] HDL 42 >40 MG/DL 08/06/2024 5:23 PM LINER INSERTER [facility] LDL-C 90 <100 MG/DL 08/06/2024 5:23 PM LINER INSERTER [facility] VLDL CALCULATION 25 5 - 28 MG/DL 08/06/2024 5:23 PM LINER INSERTER [facility] CHOL/HDL RATIO 3.7 0.0 - 4.0 08/06/2024 5:23 PM [facility] LDL/HDL 2.1 0.41 - 2.13 08/06/2024 5:23 PM LINER INSERTER [facility] NON HDL CHOLESTEROL 115 <140 MG/DL 08/06/2024 5:23 PM LINER INSERTER [facility] 08/06/2024 8:4 5 AM LINER INSERTER Emily Jade DO LABORATORY Final Re sult [facility] [address] [place] [address], [place] [phone] * (ABNORMAL) CBC W/DIFF AUTOMATED (08/06/2024 8:45 AM LINER INSERTER) [facility] WBC 7.38 4.00 - 10.80 x10'3/uL 08/06/2024 2:56 PM LINER INSERTER [facility] RBC 4.95 4.50 - 6.10 x10'6/uL 08/06/2024 2:56 PM [facility] HGB 15.4 13.0 - 18.0 G/DL 08/06/2024 2:56 PM [facility] HCT 45.8 37.0 - 52.0 % 08/06/2024 2:56 PM [facility] MCV 92.5 78.0 - 100.0 FL 08/06/2024 2:56 PM [facility] MCH 31.1(H) 27.0 - 31.0 PG 08/06/2024 2:56 PM [facility] MCHC 33.6 33.0 - 36.0 G/DL 08/06/2024 2:56 PM [facility] RDW 12.9 11.5 - 14.5 % 08/06/2024 2:56 PM [facility] PLT 305 150 - 350 x10'3/uL 08/06/2024 2:56 PM [facility] MPV 9.3 7.4 - 10.4 FL 08/06/2024 2:56 PM [facility] DIFFERENTIAL TYPE AUTOMATED DIFFERENTIAL 08/06/2024 2:56 PM [facility] NEUTROPHILS % 66.1 % 08/06/2024 2:56 PM [facility] LYMPHOCYTES % 21.1 % 08/06/2024 2:56 PM [facility] MONOCYTES % 9.5 % 08/06/2024 2:56 PM LINER INSERTER [facility] EOSINOPHILS % 2.4 % 08/06/2024 2:56 PM LINER INSERTER [facility] BASOPHILS % 0.4 % 08/06/2024 2:56 PM LINER INSERTER [facility] IMMATURE GRANS % 0.5 % 08/06/2024 2:56 PM LINER INSERTER [facility] ABS. NEUTROPHILS 4.87 1.60 - 8.30 x10'3/uL 08/06/2024 2:56 PM LINER INSERTER [facility] ABS. LYMPHOCYTES 1.56 0.80 - 4.70 x10'3/uL 08/06/2024 2:56 PM LINER INSERTER [facility] ABS. MONOCYTES 0.70 0.00 - 1.50 x10'3/uL 08/06/2024 2:56 PM LINER INSERTER [facility] ABS. EOSINOPHILS 0.18 0.00 - 0.40 x10'3/uL 08/06/2024 2:56 PM LINER INSERTER [facility] ABS. BASOPHILS 0.03 0.00 - 0.20 x10'3/uL 08/06/2024 2:56 PM LINER INSERTER [facility] ABS. IMMATURE GRANULOCYTES 0.04(H) 0.00 - 0.03 x10'3/uL 08/06/2024 2:56 PM LINER INSERTER [facility] 08/06/2024 8:45 AM LINER INSERTER us Emily Jade DO LABORATORY Final Re sult [facility] [address] [place] [address], * FERRITIN (08/06/2024 8:45 AM LINER INSERTER) FERRITIN 199.0 26 - 388 NG/ML 08/06/2024 5:23 PM LINER INSERTER [facility] 08/06/2024 8:45 AM LINER INSERTER Emily Jade DO LABORATORY Final Re sult Performing Organization Address [facility]/ZIP Co de Phone Number [facility] [address] [place] [address], * SOLUBLE TRANSFERRIN RECEPTOR (08/06/2024 8:31 AM LINER INSERTER) SOLUBLE TRANSFERRIN RECEPTOR 1.70 0.76 - 1.76 mg/L [facility] 08/06/2024 8:31 AM LINER INSERTER 08/07/2024 6:06 AM LINER INSERTER Narrative Resulting Agency Comment Performing Organization Information: Site ID: [id number] Name: [facility], Address: [address] [place], [place] [id number] Director: Radha Kellogg MD,PhD,VALDO Emily Jade DO LABORATORY Final Re sult Performing Organization Address [facility] de Phone Number [facility] [address] [address], * LDH, LACTATE DEHYDROGENASE (08/06/2024 8:31 AM LINER INSERTER) LDH 213 87 - 241 UNITS/L 08/06/2024 5:34 PM LINER INSERTER [facility] 08/06/2024 8:31 AM LINER INSERTER Emily Jade DO LABORATORY Final Re sult Performing Organization Address City/[facility]/ZIP Co de Phone Number [facility] [address] [place] [address], [phone] * FOLIC ACID SERUM (08/06/2024 8:31 AM LINER INSERTER) FOLATE 16.3 8.6 - 58.9 NG/ML 08/06/2024 4:06 PM LINER INSERTER [facility] 08/06/2024 8:31 AM LINER INSERTER Emily Jade DO LABORATORY Final Re sult Performing Organization Address City/[facility] Co de Phone Number [facility] [address] [place] [address], [place] [phone] * HEPATITIS C ANTIBODY (11/21/2021 7:56 AM CDT) Pathologist [facility] HEPATITIS C AB NON-REACTI VE NON-REACT [place] 11/21/2021 6:32 PM CDT [facility] Comment: ANTIBODIES TO HCV NOT DETECTED. DOES NOT EXCLUDE THE POSSIBILITY OF EXPOSURE TO HCV. 11/21/2021 7:56 AM CDT Emily Jade DO LABORATORY Final Re sult Performing Organization Address City/[facility] Co de Phone Number [facility] [address] [place] [address], [place] [phone] * COLONOSCOPY GENERIC (SCAN ORDER) (10/18/2018) 10/18/2018 [facility] Scanned SCANNING Final Resu lt from Last 3 Months or Most Recently Relevant to Health Maintenance Insurance [facility] Care Teams Human Resources Executive Assistant Relationship Specialty Start Date End Date Emily Jade DO [address] [place] [id number] PCP - General FAMILY PRACTICE 05/09/19
--- OUTSIDE RECORDS SUMMARY | 2024-10-02 08:44 | XMS_ITS ---
Author Organization [facility] Address [address] [place] [address] Care Team Providers Care Optical Fabricator Name Role Phone Boni Romero Primary Care Provider Manuelito Larson [phone] REASON FOR VISIT New Refill Request Social History Sex Assigned At : Social History Observation Description Sex Assigned At Male Encounters Encounter Location Date Provider Diagnosis [address] [address] 09/03/2024 Boni Romero Plan Of Treatment Next Appt Details Provider Name:Boni Nuno , 10/02/2024 03:00:00 PM, [address] [place], [address], Progress Notes * David POWERSDOB:1980 (43 yo M)Acc No.[id number]:09/03/2024 Patient: David ALBARADO :1980 A ge:43 Y S ex:Male Address:[address] [place], [address] * true * Date: Generated for Printi ng/Faxing/eTransmitting on: 0 10/02/2024 08:43 AM CDT
--- OUTSIDE RECORDS SUMMARY | 2024-10-02 08:44 | XMS_ITS | Data Portability ---
Author Organization [place] - [facility] eSNF , [employer] [facility] Address [address] [place] [address] Assessment Encounter Date Assessment Date Assessment LastModified [...] 40 mg tablet,del ayed release 2023 024 [facility]/Pharmacy #[id number], [address], [place], [address], 18:51:55 Patient TargetsNo targets recorded. Patient Instructions Encounter Date Encounter Id Patient Instructions Last Modified By Organization Details Last Modified Time 05/26/2024 [id number] gastroesophageal reflux disease (GERD): care instructions Not [...] enidate ER 15 mg capsule,ext ended release [id number] TAKE 1 CAPSULE BY MOUTH EVERY [...] SNOMED-CT Code Diagnosis ICD10 Code Diagnosis Note [id number] SHILOH [facility] [address] [place] [address] 05/26/2024 18:25:00 05/27/2024 00:42:22 Gastroesophageal reflux disease 655618248 K21.9 Health Concerns Section Related Observation LastModified by Organization Detai ls LastModified Time None Recorded Concern Status LastModified by Organization Details LastModified Time None Recorded Advance Directives Directive None Recorded Payers Encounter Date Sequence Insurance Name Policy Number Policy Zambrano Covered Member ID Zambrano Member ID Guarantor Name 05/26/2024 1 [place] [id number] David Rider [id number] David Rider 05/26/2024 3 *SELF PAY* [id number] David Rider [id number] David Rider Notes Date Note Type Note [...] following state at the time of visit: [place]. The patient consents to the use of [employer] Private technology. Previous visits and labs reviewed, if available.Patient at time of visit located in: [place] HPI: pt reports he has been having [...] medications:- Hoarseness:+ Dental concerns:- Additional symptoms:- ERNESTO [address], [place], [address], [facility] 05/26/2024 18:55:05
--- OUTSIDE RECORDS SUMMARY | 2024-10-02 08:45 | XMS_ITS | Clinical Summary ---
Author Organization [facility] Address [address] [place] [address] Care Team Providers Care School Office Manager Name Role Phone Yasmin Haris P DO Primary Care Provider + Source Comments [facility],non-owned Affiliates and Associated Physician Practices is amultiple site organization consisting of ambulatory clinics and hospital sitesin [place], [place], [place] and [place]. This disclosure is being madepursuant to the Care Everywhere program and may not contain all information available regarding this patient. Last updated 18.[facility] Allergies No known active allergies Medications * Be aware that medications may not be up to date on this document. Alwaysverify current medications with the patient. Medication Sig Dispensed Refills Start Date End Date Status Cholecalciferol (VITAMIN D PO) Active fluticasone propionate (FLONASE ALLERGY RELIEF) 50 MCG/ACT nasal sprayIndications:Al lergic Rhinitis [place] 2 sprays into each nostril once daily [...] COMPREHENSIVE METABOLIC PANEL (05/04/2022 9:45 AM CDT) [facility] Glucose 97 70 - 105 mg/dL 05/04/2022 10:10 AM CDT [facility] Sodium 138 136 - 145 mmol/L 05/04/2022 10:10 AM CDT [facility] Potassium 4.1 3.5 - 5.1 mmol/L 05/04/2022 10:10 AM CDT [facility] Chloride 106 98 - 107 mmol/L 05/04/2022 10:10 AM CDT [facility] CO2 20(L) 23 - 31 mmol/L 05/04/2022 10:10 AM CDT [facility] Calcium 9.6 8.4 - 10.4 mg/dL 05/04/2022 10:10 AM CDT [facility] Anion Gap 12 8 - 18 mmol/L 05/04/2022 10:10 AM CDT [facility] BUN 9 8.9 - 20.6 mg/dL 05/04/2022 10:10 AM CDT [facility] Creatinine 0.88 0.72 - 1.25 mg/dL 05/04/2022 10:10 AM CDT [facility] Alkaline Phosphatase 88 40 - 150 U/L 05/04/2022 10:10 AM CDT [facility] ALT 46 0 - 61 U/L 05/04/2022 10:10 AM CDT [facility] AST 25 5 - 34 U/L 05/04/2022 10:10 AM CDT [facility] Protein Total 7.5 6.4 - 8.3 gm/dL 05/04/2022 10:10 AM CDT [facility] Albumin 4.4 3.5 - 5.2 gm/dL 05/04/2022 10:10 AM CDT [facility] Bilirubin Total 0.7 0.2 - 1.2 mg/dL 05/04/2022 10:10 AM T [facility] eGFR by CKD-EPI >90 >=90 mL/min/1.7 3 m2 05/04/2022 10:10 AM T [facility] Blood BLOOD SPECIMEN / Unknown Venipuncture / Unknown 05/04/2022 9:45 AM CDT 05/04/2022 9:49 AM CDT Disha Mojica PA-C LAB - CHEMISTRY ORDERABLES [facility] [address] [place] [address] from Last 3 Months or Most Recently Relevant to Health Maintenance Care Teams School Office Manager Relationship Specialty Start Date End Date Haris Hoffman DO PCP - General 05/23/19
--- OUTSIDE RECORDS SUMMARY | 2024-10-02 08:45 | XMS_ITS ---
Author Organization [facility] Address [address] [place] [address] Care Team Providers Care It Trainer Name Role Phone Boni Romero Primary Care Provider Manuelito Larson [phone] REASON FOR VISIT 6 Week Psych F/U & Med Refill Social History Sex Assigned At : Social History Observation Description Sex Assigned At Male Encounters Encounter Location Date Provider Diagnosis [address] [address] 10/02/2024 Boni Romero Plan Of Treatment Next Appt Details Provider Name:Boni Nuno , 10/02/2024 03:00:00 PM, [address] [place] [address], [id number], Progress Notes * David POWERSDOB:1980 (44 yo M)Acc No.[id number]:10/02/2024 UNLOCKED PROGRESS NOTE Patient: David ALBARADO Provider: Sukhjinder Romero DNP, PMHNP-BC :1980 A ge:44 Y S ex:Male Date:10/02/2024 Address:[address] [facility] Subjective: * Chief Complaints: * 1 . 6 Week Psych F/U & Med Refill. * Medical History: Objective: * Vitals: Assessment: Plan: * Treatment: * * Electronic signature of Nicci Romero , REHABILITATION ASSISTANT, [id number] on 10/02/2024 at 08:44 AM CDT Sign off status: Pending * Provider: Sukhjinder Romero DNP, PMHNP- Date: 10/02/2024 Generated for Amanda dodge/Sahara/Katherine on: 10/02/2024 08:44 AM CDT
== END 2024-10-02 08:36 | disposition home or self-care (01) ==
PROVIDERS: PCP Student in an Organized Health Care Education/Training Program; Visit Provider Surgery
DX: K44.9 Diaphragmatic hernia without obstruction or gangrene (principal)
CPT/HCPCS: 74240

== ENCOUNTER 2024-10-17 08:09 | Outpatient (CLI) | payer OTHER, SELFPAY ==
--- NOTE | ~2024-10-17 | NM_ITS ---
EXAM: NM gastric emptying study DATE: 10/17/2024 14:04 INDICATION: Early satiety TECHNIQUE: A gastric emptying study was performed using the methodology of Binh DAVIS, et al. J Nucl Med 2007; 48:568-572. The patient was given a meal consisting of 2 scrambled eggs labeled with 0.931 mCi Tc-99m sulfur colloid, 2 slices of toast, two packages of jam, and approximately 120 mL of water . Simultaneous anterior and posterior 1-min images of the abdomen were obtained with the patient supi ne at multiple time points over a total period of 4 hours. The geometric mean of anterior and posteri or views was determined, and the percentage retention was calculated for each time point. COMPARISON: None. FINDINGS: Gastric retention of the radiotracer-labeled meal was 35%, 16%, and 3% at the 1-hour, 2-hour, and 4-h our time points, respectively. With this technique, apparent rapid gastric emptying is suggested by < 30% gastric retention at 1 hour. Delayed gastric emptying is defined by gastric retention of >90% at 1 hour, >60% retention at 2 hours, or >10% retention at 4 hours. IMPRESSION: 1. Normal gastric emptying. Reviewed, dictated and finalized at location A. IMPRESSION: 1. Normal gastric emptying.
--- OUTSIDE RECORDS SUMMARY | 2024-10-17 08:14 | XMS_ITS ---
Author Organization [facility] Address [address] [place] [address] Care Team Providers Care Airconditioning Engineer Name Role Phone Boni Romero Primary Care Provider [phone] Manuelito Larson [phone] REASON FOR VISIT FMLA paperwork Social History Sex Assigned At : Social History Observation Description Sex Assigned At Male Encounters Encounter Location Date Provider Diagnosis [address] [address] 10/09/2024 Boni Romero Plan Of Treatment No Information Progress Notes * David POWERSDOB:1980 (44 yo M)Acc No.[id number]:10/09/2024 Patient: David ALBARADO :1980 A ge:44 Y S ex:Male Address:[address] [place], [address] * true * Date: Generated for Printi ng/Faxing/eTransmitting on: 0 10/17/2024 08:13 AM CDT
--- OUTSIDE RECORDS SUMMARY | 2024-10-17 08:14 | XMS_ITS ---
Author Organization [facility] Address [address] [place] [address] Care Team Providers Care Sterile Preparation Technician Name Role Phone Boni Romero Primary Care Provider Manuelito Larson [phone] REASON FOR VISIT New Refill Request Social History Sex Assigned At : Social History Observation Description Sex Assigned At Male Encounters Encounter Location Date Provider Diagnosis [address] [address] 09/27/2024 Boni Romero Plan Of Treatment No Information Progress Notes * David POWERSDOB:1980 (44 yo M)Acc No.[id number]:09/27/2024 Patient: Dvaid ALBARADO :1980 A ge:44 Y S ex:Male Address:[address] [place], [address] * true * Date: Generated for Printi ng/Faxing/eTransmitting on: 0 10/17/2024 08:13 AM CDT
--- OUTSIDE RECORDS SUMMARY | 2024-10-17 08:14 | XMS_ITS | Encounter Summary ---
Author Organization [facility] Address [address] [place] [address] Care Team Providers Care Door Liner Helper Name Role Phone Haris Hoffman DO Primary Care Provider + Encounter Details Date Type Department Care Team (Late st Contact Info) Description 10/06/2024 amcure Message Enc [facility] [address] [place] [phone] [facility] Provider Time Social History Tobacco Use Types Packs/Day Years [...] Sex Assigned at Male 07/30/2024 9:03 AM SOCK KNITTER Legal Sex Male 7:17 PM CDT Gender Identity Male 07/30/2024 9:03 AM SOCK KNITTER Sexual Orientation Not on file Occupation Industry Job Start Date Job End Date Not on file Not on file Not on file Not on file documented as of this encounter Plan of Treatment Not on file documented as of this encounter Visit Diagnoses Not on filedocumented in this encounter Care Teams Door Liner Helper Relationship Specialty Start Date End Date Haris Hoffman DO [address] [place] [id number] PCP - General FAMILY PRACTICE 05/09/19 documented as of this encounter
--- OUTSIDE RECORDS SUMMARY | 2024-10-17 08:14 | XMS_ITS | Clinical Summary ---
Author Organization [facility] Address [address] [place] [address] Care Team Providers Care [employer] Name Role Phone Sangkenishajesus albertoEmily Vicente HIDALGO [...] Encounters Date Type Department Care Team Description 10/06/2024 Response Biomedical Message Enc [facility] [address], [address] [place] [address] Georgina, [facility] Provider Time 10/06/2024 Telephone [facility] Emergency Department - [address] [place] [address] Mary Dumont NP Appointment Reminder 10/02/2024 Scan [facility] INFO SRVCS Scanned, [facility] Image (SCAN) 09/30/2024 Scan [facility] INFO SRVCS Scanned, [facility] Ultrasound (SCAN) 09/25/2024 Telephone [facility] [address] [address] Emily Jade P, DO Information 09/03/2024 Scan [facility] INFO SRVCS Scanned, [facility] 08/28/2024 Telephone [facility] [address] [address] Emily Jade P, DO TCM 08/26/2024 Scan [facility] INFO [facility]VCS Scanned, [facility] Pathology (SCAN); EGD (SCAN) 08/25/2024 Scan [facility] INFO [facility] Scanned, [facility] Lab (SCAN) 08/25/2024 Scan [facility] INFO SRVCS Scanned, [facility] CT (SCAN); Lab (SCAN) 08/15/2024 9:00 AM PARKING GARAGE MANAGER Office Visit [facility] [address] [address] Emily Jade P, DO Cough (Patient c/o cough, chest congestion, and fatigue. Patient also endorses mild sore throat, attributes this to coughing. Patient states he had pneumonia at the end of June and feels like he may not have recovered fully from it. ) 08/15/2024 Travel 08/06/2024 8:40 AM PARKING GARAGE MANAGER Laboratory Only [facility] [address] [address] Emily Jade P, DO 08/06/2024 - 08/06/2024 11:59 PM PARKING GARAGE MANAGER Hospital Encounter [facility] [place] [address] Emily Jade P, DO Discharge Disposition: Home or Self Care (Routine Discharge) 08/06/2024 Travel 07/30/2024 8:40 AM PARKING GARAGE MANAGER Office Visit [facility] [address] [phone] Emily Jade P, DO Gi Problem (The patient reports acid reflux and vomiting almost daily for 3-4 months. The patient states he has woke up with food in his mouth in the middle of the night. ) 07/30/2024 Travel from Last 3 Months Immunizations Name Administration [...] Sex Assigned at Male 07/30/2024 9:03 AM PARKING GARAGE MANAGER Legal Sex Male 7:17 PM CDT Gender Identity Male 07/30/2024 9:03 AM PARKING GARAGE MANAGER Sexual Orientation Not on file Occupation Industry Job Start Date Job End Date Not on file Not on file Not on file Not on file Last Filed Vital Signs Vital Sign Reading Time Taken Comments Blood Pressure 126/82 08/15/2024 9:50 AM PARKING GARAGE MANAGER Pulse 72 08/15/2024 9:50 AM PARKING GARAGE MANAGER Temperature 36.9 C (98.4 F) 08/15/2024 9:50 AM PARKING GARAGE MANAGER Respiratory Rate 20 08/15/2024 9:50 AM PARKING GARAGE MANAGER Oxygen Saturation 97% 08/15/2024 9:50 AM PARKING GARAGE MANAGER Inhaled Oxygen Concentration - - Weight 129.7 kg (285 lb 14.4 oz) 08/15/2024 9:50 AM PARKING GARAGE MANAGER Height 188 cm (6' 2 ) 08/15/2024 9:50 AM PARKING GARAGE MANAGER Body Mass Index 36.71 08/15/2024 9:50 AM PARKING GARAGE MANAGER Plan of Treatment Health Maintenance Due Date Last Done Comments Hepatitis B Vaccines (1 of 3 - 19+ 3-dose series) 1997 Annual Physical 05/09/2020 05/09/2019 Colorectal Cancer Screening Colonoscopy (10 Years) 10/18/2028 10/18/2018 DTaP, Tdap and Td Vaccines (2 - Td or Tdap) 09/02/2030 09/02/2020 Hepatitis C Completed 11/21/2021 COVID-19 Vaccine Completed 07/30/2024, , 10/31/2020, Additional history exists PHQ-2 (Physician [place]) Completed 07/30/2024 HPV Vaccines Aged Out No [...] Procedure Name Priority Date/Time Associated Diagnosis Comments IMAGE GENERIC 10/02/2024 ULTRASOUND GENERIC (SCAN ORDER) 09/30/2024 PATHOLOGY GENERIC (SCAN ORDER) 08/26/2024 EGD GENERIC (SCAN ORDER) 08/26/2024 CT GENERIC 08/25/2024 OUTSIDE LAB COVID-19 (SCAN ORDER) Routine 08/25/2024 OUTSIDE LAB (SCAN ORDER) 08/25/2024 XR CHEST PA+LAT STAT 08/15/2024 10:32 AM PARKING GARAGE MANAGER Subacute cough COLLECT.CAPILLARY (FNGR,HEEL,EAR) Routine 08/15/2024 10:15 AM PARKING GARAGE MANAGER Elevated glucose HEMOGLOBIN, GLYCOSYLATED Routine 08/15/2024 Elevated glucose COLLECTION VENOUS BLOOD VENIPUNCTURE Routine 08/06/2024 8:46 AM PARKING GARAGE MANAGER Anemia, unspecified type Screening for endocrine, metabolic and immunity disorder Screening for lipid disorders Annual physical exam CBC W/DIFF AUTOMATED Routine 08/06/2024 8:45 AM PARKING GARAGE MANAGER Anemia, unspecified type Screening for endocrine, metabolic and immunity disorder Screening for lipid disorders Annual physical exam VITAMIN B-12 Routine 08/06/2024 8:45 AM PARKING GARAGE MANAGER Anemia, unspecified type Screening for endocrine, metabolic and immunity disorder Screening for lipid disorders Annual physical exam RETICULOCYTE CT, AUTO Routine 08/06/2024 8:45 AM PARKING GARAGE MANAGER Anemia, unspecified type Screening for endocrine, metabolic and immunity disorder Screening for lipid disorders Annual physical exam HAPTOGLOBIN, QUANT Routine 08/06/2024 8: 45 AM PARKING GARAGE MANAGER Anemia, unspecified type Screening for endocrine, metabolic and immunity disorder Screening for lipid disorders Annual physical exam FERRITIN Routine 08/06/2024 8:45 AM PARKING GARAGE MANAGER Anemia, unspecified type Screening for endocrine, metabolic and immunity disorder Screening for lipid disorders Annual physical exam IRON SAT PANEL (IRON,IBC,%SAT) Routine 08/06/2024 8:45 AM PARKING GARAGE MANAGER Anemia, unspecified type Screening for endocrine, metabolic and immunity disorder Screening for lipid disorders Annual physical exam TSH W/REFLEX Routine 08/06/2024 8:45 AM PARKING GARAGE MANAGER Anemia, unspecified type Screening for endocrine, metabolic and immunity disorder Screening for lipid disorders Annual physical exam COMPREHENSIVE METABOLIC PANEL Routine 08/06/2024 8:45 AM PARKING GARAGE MANAGER Anemia, unspecified type Screening for endocrine, metabolic and immunity disorder Screening for lipid disorders Annual physical exam LIPID PANEL Routine 08/06/2024 8:45 AM PARKING GARAGE MANAGER Anemia, unspecified type Screening for endocrine, metabolic and immunity disorder Screening for lipid disorders Annual physical exam SOLUBLE TRANSFERRIN RECEPTOR Routine 08/06/2024 8:31 AM PARKING GARAGE MANAGER Anemia, unspecified type Screening for endocrine, metabolic and immunity disorder FOLIC ACID SERUM Routine 08/06/2024 8:31 AM PARKING GARAGE MANAGER Anemia, unspecified type Screening for endocrine, metabolic and immunity disorder Screening for lipid disorders Annual physical exam LDH, LACTATE DEHYDROGENASE Routine 08/06/2024 8:31 AM PARKING GARAGE MANAGER Anemia, unspecified type Screening for endocrine, metabolic and immunity disorder Screening for lipid disorders Annual physical exam HEPATITIS C ANTIBODY Routine 11/21/2021 7:56 AM CDT Need for hepatitis C screening test COLONOSCOPY GENERIC (SCAN ORDER) 10/18/2018 from Last 3 Months or Most Recently Relevant to Health Maintenance Results * IMAGE GENERIC (10/02/2024) Anatomical Region Laterality Modality Other 10/02/2024 [facility] Scanned SCANNING Final Resu lt * ULTRASOUND GENERIC (SCAN ORDER) (09/30/2024) Anatomical Region Laterality Modality Other 09/30/2024 Result [facility] Scanned SCANNING Final Resu lt * EGD GENERIC (SCAN ORDER) (08/26/2024) 08/26/2024 Result [facility] Scanned SCANNING Final Resu lt * PATHOLOGY GENERIC (SCAN ORDER) (08/26/2024) 08/26/2024 Result [facility] Scanned SCANNING Final Resu lt * OUTSIDE LAB COVID-19 (08/25/2024) CORONAVIRUS SARS COV 2 PCR (RESP) NOT DETECTED NOT DETECTED [facility] 08/25/2024 Result [facility] Scanned SCANNING Final Resu lt [facility] ONBASE * CT GENERIC (08/25/2024) Anatomical Region Laterality Modality Other 08/25/2024 Result [facility] Scanned SCANNING Final Resu lt * OUTSIDE LAB (SCAN ORDER) (08/25/2024) 08/25/2024 Result [facility] Scanned SCANNING Final Resu lt * XR CHEST PA+LAT (08/15/2024 10:32 AM PARKING GARAGE MANAGER) Anatomical Region Laterality Modality Chest Radiographic Shaye ging 08/15/2024 10:3 5 AM PARKING GARAGE MANAGER Impressions 08/15/2024 10:36 AM PARKING GARAGE MANAGER IMPRESSION: 1. No radiographic evidence of active chest disease. 2. Potential hiatal hernia. Ordered By: EMILY JADE Interpreted By: Toi Vazquez MD, 08/15/2024 10:35 AM Narrative 08/15/2024 10:36 AM [address]ARKING GARAGE MANAGER [facility] [place] [address] Examination: XR CHEST PA+LAT Exam time: 08/15/2024 [...] Procedure Note Toi Vazquez MD - 08/15/2024 [facility] [place] [address] Examination: XR CHEST PA+LAT Exam time: 08/15/2024 [...] Toi Vazquez MD, 08/15/2024 10:35 AM Emily Jdae DO GENERAL IMAGING Final Re sult * (ABNORMAL) A1C (BACK OFFICE) (08/15/2024) HGB A1C 6.2(A) % [facility] 08/15/2024 Emily Jade DO LABORATORY Final Re sult Performing Organization Address [facility] [place] [address], * TSH W/REFLEX (08/06/2024 8:45 AM PARKING GARAGE MANAGER) TSH 1.455 0.358 - 3.740 uIU/ML 08/06/2024 5:23 PM PARKING GARAGE MANAGER [facility] 08/06/2024 8:45 AM PARKING GARAGE MANAGER Emily Jade DO LABORATORY Final Re sult Performing Organization Address City/[facility]/ZIP Co de Phone Number [facility] [address] [phone], * IRON SAT PANEL (IRON,IBC,%SAT) (08/06/2024 8:45 AM PARKING GARAGE MANAGER) IRON 107 65 - 175 MCG/DL 08/06/2024 5:23 PM PARKING GARAGE MANAGER [facility] IRON BINDING CAPACITY 318 250 - 450 MCG/DL 08/06/2024 5:23 PM PARKING GARAGE MANAGER [facility] IRON SATURATION 34 % 5:23 PM PARKING GARAGE MANAGER [facility] Comment:REFERENCE RANGE NOT ESTABLISHED 08/06/2024 8:45 AM PARKING GARAGE MANAGER Emily Jade DO LABORATORY Final Re sult Performing Organization Address [facility]/ZIP Co de Phone Number [facility] [address] [place] [address], * VITAMIN B-12 (08/06/2024 8:45 AM PARKING GARAGE MANAGER) Pathologist [facility] [place] VITAMIN B12 S/P/B 353 193 - 986 PG/ML 08/06/2024 5:23 PM PARKING GARAGE MANAGER [facility] 08/06/2024 8:45 AM PARKING GARAGE MANAGER Emily Jade LABORATORY Final Re sult [facility] [address] [place] [address], * RETICULOCYTE CT, AUTO (08/06/2024 8:45 AM PARKING GARAGE MANAGER) RETICULOCYTE COUNT 2.0 0.7 - 2.3 % 08/06/2024 5:24 PM PARKING GARAGE MANAGER [facility] ABSOLUTE RETICULOCYTE 0.10 0.03 - 0.11 x10'6/uL 08/06/2024 5:24 PM PARKING GARAGE MANAGER [facility] IMMATURE RETIC FRACTION 11.5 2.3 - 13.4 % 08/06/2024 5:24 PM PARKING GARAGE MANAGER [facility] RETIC HGB 34.5 28.0 - 35.0 PG 08/06/2024 5:24 PM PARKING GARAGE MANAGER [facility] 08/06/2024 8:45 AM PARKING GARAGE MANAGER Emily Jade LABORATORY Final Re sult Performing Organization Address [facility] Co de Phone Number [facility] [address] [place] [address], [place] [phone] * (ABNORMAL) HAPTOGLOBIN, QUANT (08/06/2024 8:45 AM PARKING GARAGE MANAGER) HAPTOGLOBIN 269.0(H) 30.0 - 200.0 MG/DL 08/06/2024 5:37 PM PARKING GARAGE MANAGER [facility] 08/06/2024 8:45 AM PARKING GARAGE MANAGER Emily Jade LABORATORY Final Re sult Performing Organization Address [facility] Co de Phone Number [facility] [address] [place] [address], [place] [phone] * (ABNORMAL) COMPREHENSIVE METABOLIC PANEL (08/06/2024 8:45 AM PARKING GARAGE MANAGER) SODIUM S/P/B 135(L) 136 - 145 MMOL/L 08/06/2024 5:23 PM PARKING GARAGE MANAGER [facility] POTASSIUM S/P/B 4.3 3.5 - 5.1 MMOL/L 08/06/2024 5:23 PM PARKING GARAGE MANAGER MG-[facility] CHLORIDE S/P/B 101 98 - 107 MMOL/L 08/06/2024 5:23 PM PARKING GARAGE MANAGER [facility] CO2 25.6 21 - 32 MMOL/L 08/06/2024 5:23 PM [facility] GLUCOSE 117(H) 70 - 99 MG/DL 08/06/2024 5:23 PM [facility] BUN 9 7 - 18 MG/DL 08/06/2024 5:23 PM [facility] CREATININE S/P/B 0.98 0.70 - 1.30 MG/DL 08/06/2024 5:23 PM [facility] CALCIUM S/P/B 8.5 8.4 - 10.5 MG/DL 08/06/2024 5:23 PM [facility] BILIRUBIN TOTAL S/P/B 0.7 0.2 - 1.0 MG/DL 08/06/2024 5:23 PM [facility] ALKALINE PHOSPHATASE S/P/B 102 45 - 115 U/L 08/06/2024 5:23 PM [facility] AST 64(H) 15 - 37 U/L 08/06/2024 5:23 PM [facility] ALT 132(H) 16 - 63 U/L 08/06/2024 5:23 PM [facility] TOTAL PROTEIN S/P/B 6.8 6.4 - 8.2 G/DL 08/06/2024 5:23 PM [facility] ALBUMIN S/P/B 3.7 3.4 - 5.0 G/DL 08/06/2024 5:23 PM [facility] ANION GAP 8.4 5 - 15 MMOL/L 08/06/2024 5:23 PM [facility] Comment:REFERENCE RANGE NOT ESTABLISHED OSMOLALITY (CALC) 280 MOSM/KG 025 5:23 PM [facility] Comment:REFERENCE RANGE NOT ESTABLISHED GFR ESTIMATE >90 >90 ML/MIN/1. 73 M2 08/06/2024 5:23 PM [facility] GFR NOTES GFR REFERENCE S: 08/06/2024 5:23 PM [facility] Comment: THE ESTIMATED GFR IS [...] FAILURE: <15 ml/min/1.73 m2 08/06/2024 8:45 AM PARKING GARAGE MANAGER us Emily Jade DO LABORATORY Final Re sult [facility] [address] [place] [address], * LIPID PANEL (08/06/2024 8:45 AM PARKING GARAGE MANAGER) CHOLESTEROL 157 <200 MG/DL 08/06/2024 5:23 PM [facility] TRIGLYCERIDES 127 <150 MG/DL 08/06/2024 5:23 PM [facility] HDL 42 >40 MG/DL 08/06/2024 5:23 PM [facility] LDL-C 90 <100 MG/DL 08/06/2024 5:23 PM [facility] VLDL CALCULATION 25 5 - 28 MG/DL 08/06/2024 5:23 PM [facility] CHOL/HDL RATIO 3.7 0.0 - 4.0 08/06/2024 5:23 PM [facility] LDL/HDL 2.1 0.41 - 2.13 08/06/2024 5:23 PM [facility] NON HDL CHOLESTEROL 115 <140 MG/DL 08/06/2024 5:23 PM PARKING GARAGE MANAGER [facility] 08/06/2024 8:45 AM PARKING GARAGE MANAGER Emily Jade DO LABORATORY Final Re sult [facility] [address] [place] [address], * (ABNORMAL) CBC W/DIFF AUTOMATED (08/06/2024 8:45 AM PARKING GARAGE MANAGER) WBC 7.38 4.00 - 10.80 x10'3/uL 08/06/2024 2:56 PM PARKING GARAGE MANAGER [facility] RBC 4.95 4.50 - 6.10 x10'6/uL 08/06/2024 2:56 PM PARKING GARAGE MANAGER [facility] HGB 15.4 13.0 - 18.0 G/DL 08/06/2024 2:56 PM PARKING GARAGE MANAGER [facility] HCT 45.8 37.0 - 52.0 % 08/06/2024 2:56 PM PARKING GARAGE MANAGER [facility] MCV 92.5 78.0 - 100.0 FL 08/06/2024 2:56 PM PARKING GARAGE MANAGER [facility] MCH 31.1(H) 27.0 - 31.0 PG 08/06/2024 2:56 PM PARKING GARAGE MANAGER [facility] MCHC 33.6 33.0 - 36.0 G/DL 08/06/2024 2:56 PM PARKING GARAGE MANAGER [facility] RDW 12.9 11.5 - 14.5 % 08/06/2024 2:56 PM PARKING GARAGE MANAGER [facility] PLT 305 150 - 350 x10'3/uL 08/06/2024 2:56 PM PARKING GARAGE MANAGER [facility] MPV 9.3 7.4 - 10.4 FL 08/06/2024 2:56 PM PARKING GARAGE MANAGER [facility] DIFFERENTIAL TYPE AUTOMATED DIFFERENTIAL 08/06/2024 2:56 PM [facility] NEUTROPHILS % 66.1 % 08/06/2024 2:56 PM [facility] LYMPHOCYTES % 21.1 % 08/06/2024 2:56 PM [facility] MONOCYTES % 9.5 % 08/06/2024 2:56 PM [facility] EOSINOPHILS % 2.4 % 08/06/2024 2:56 PM PARKING GARAGE MANAGER [facility] BASOPHILS % 0.4 % 08/06/2024 2:56 PM [facility] IMMATURE GRANS % 0.5 % 08/06/2024 2:56 PM [facility] ABS. NEUTROPHILS 4.87 1.60 - 8.30 x10'3/uL 08/06/2024 2:56 PM [facility] ABS. LYMPHOCYTES 1.56 0.80 - 4.70 x10'3/uL 08/06/2024 2:56 PM [facility] ABS. MONOCYTES 0.70 0.00 - 1.50 x10'3/uL 08/06/2024 2:56 PM [facility] ABS. EOSINOPHILS 0.18 0.00 - 0.40 x10'3/uL 08/06/2024 2:56 PM [facility] ABS. BASOPHILS 0.03 0.00 - 0.20 x10'3/uL 08/06/2024 2:56 PM [facility] ABS. IMMATURE GRANULOCYTES 0.04(H) 0.00 - 0.03 x10'3/uL 08/06/2024 2:56 PM [facility] 08/06/2024 8:45 AM PARKING GARAGE MANAGER Emily Jade DO LABORATORY Final Re sult Performing Organization Address City/[facility]/ZIP Co de Phone Number [facility] [address] [place] [address], * FERRITIN (08/06/2024 8:45 AM PARKING GARAGE MANAGER) FERRITIN 199.0 26 - 388 NG/ML 08/06/2024 5:23 PM PARKING GARAGE MANAGER [facility] 08/06/2024 8:45 AM PARKING GARAGE MANAGER Emily Jade DO LABORATORY Final Re sult Performing Organization Address [facility] Co de Phone Number [facility] [address] [place] [address], [place] [phone] * SOLUBLE TRANSFERRIN RECEPTOR (08/06/2024 8:31 AM PARKING GARAGE MANAGER) Pathologist [facility] SOLUBLE TRANSFERRIN RECEPTOR 1.70 0.76 - 1.76 mg/L [facility] 08/06/2024 8:31 AM PARKING GARAGE MANAGER 08/07/2024 6:06 AM PARKING GARAGE MANAGER Narrative Resulting Agency Comment Performing Organization Information: Site ID: [id number] Name: [facility], Address: [address] [place] [id number] Director: Radha Kellogg MD,PhD,VALDO Emily Jade DO LABORATORY Final Re sult Performing Organization Address [facility]/ZIP Co de Phone Number [facility] - LYNDSEY ORDERS [facility] [address] [address], * LDH, LACTATE DEHYDROGENASE (08/06/2024 8:31 AM PARKING GARAGE MANAGER) LDH 213 87 - 241 UNITS/L 08/06/2024 5:34 PM PARKING GARAGE MANAGER [facility] 08/06/2024 8:31 AM PARKING GARAGE MANAGER Emily Jade DO LABORATORY Final Re sult Performing Organization Address [facility] Co de Phone Number [facility] [address] [place] [address], [place] [phone] * FOLIC ACID SERUM (08/06/2024 8:31 AM PARKING GARAGE MANAGER) Pathologist [facility] [place] FOLATE 16.3 8.6 - 58.9 NG/ML 08/06/2024 4:06 PM PARKING GARAGE MANAGER [facility] 08/06/2024 8:31 AM PARKING GARAGE MANAGER Emily Jade DO LABORATORY Final Re sult Performing Organization Address [facility] de Phone Number [facility] [address] [place] [address], [place] [phone] * HEPATITIS C ANTIBODY (11/21/2021 7:56 AM CDT) [facility] HEPATITIS C AB NON-REACTI VE NON-REACT [place] 11/21/2021 6:32 PM CDT [facility] Comment: ANTIBODIES TO HCV NOT DETECTED. DOES NOT EXCLUDE THE POSSIBILITY OF EXPOSURE TO HCV. 11/21/2021 7:56 AM CDT Emily Jade DO LABORATORY Final Re sult Performing Organization Address [facility] de Phone Number [facility] [address] [place] [address], [place] [phone] * COLONOSCOPY GENERIC (SCAN ORDER) (10/18/2018) 10/18/2018 [facility] Scanned SCANNING Final Resu lt from Last 3 Months or Most Recently Relevant to Health Maintenance Insurance [facility] Care Teams [employer] Teacher Relationship Specialty Start Date End Date Emily Jade DO [address] [place] [id number] PCP - General FAMILY PRACTICE 05/09/19
--- OUTSIDE RECORDS SUMMARY | 2024-10-17 08:14 | XMS_ITS | Clinical Summary ---
Author Organization [facility] Address [address] [place] [address] Care Team Providers Care Bait Maker Name Role Phone Yasmin Haris P DO Primary Care Provider + Source Comments [facility],non-owned Affiliates and Associated Physician Practices is amultiple site organization consisting of ambulatory clinics and hospital sitesin [place], [place], [place] and [place]. This disclosure is being madepursuant to the Care Everywhere program and may not contain all information available regarding this patient. Last updated 18.[facility] Allergies No known active allergies Medications * Be aware that medications may not be up to date on this document. Alwaysverify current medications with the patient. Medication Sig Dispensed Refills Start Date End Date Status Cholecalciferol (VITAMIN D PO) Active fluticasone propionate (FLONASE ALLERGY RELIEF) 50 MCG/ACT nasal sprayIndications:Al lergic Rhinitis [place] 2 sprays into each nostril once daily [...] COMPREHENSIVE METABOLIC PANEL (05/04/2022 9:45 AM CDT) [facility] Glucose 97 70 - 105 mg/dL 05/04/2022 10:10 AM CDT [facility] Sodium 138 136 - 145 mmol/L 05/04/2022 10:10 AM CDT [facility] Potassium 4.1 3.5 - 5.1 mmol/L 05/04/2022 10:10 AM CDT [facility] Chloride 106 98 - 107 mmol/L 05/04/2022 10:10 AM CDT [facility] CO2 20(L) 23 - 31 mmol/L 05/04/2022 10:10 AM CDT [facility] Calcium 9.6 8.4 - 10.4 mg/dL 05/04/2022 10:10 AM CDT [facility] Anion Gap 12 8 - 18 mmol/L 05/04/2022 10:10 AM CDT [facility] BUN 9 8.9 - 20.6 mg/dL 05/04/2022 10:10 AM CDT [facility] Creatinine 0.88 0.72 - 1.25 mg/dL 05/04/2022 10:10 AM CDT [facility] Alkaline Phosphatase 88 40 - 150 U/L 05/04/2022 10:10 AM CDT [facility] ALT 46 0 - 61 U/L 05/04/2022 10:10 AM CDT [facility] AST 25 5 - 34 U/L 05/04/2022 10:10 AM CDT [facility] Protein Total 7.5 6.4 - 8.3 gm/dL 05/04/2022 10:10 AM CDT [facility] Albumin 4.4 3.5 - 5.2 gm/dL 05/04/2022 10:10 AM CDT [facility] Bilirubin Total 0.7 0.2 - 1.2 mg/dL 05/04/2022 10:10 AM T [facility] eGFR by CKD-EPI >90 >=90 mL/min/1.7 3 m2 05/04/2022 10:10 AM T [facility] Blood BLOOD SPECIMEN / Unknown Venipuncture / Unknown 05/04/2022 9:45 AM CDT 05/04/2022 9:49 AM CDT Disha Mojica PA-C LAB - CHEMISTRY ORDERABLES [facility] [address] [place] [address] from Last 3 Months or Most Recently Relevant to Health Maintenance Care Teams Bait Maker Relationship Specialty Start Date End Date Haris Hoffman DO PCP - General 05/23/19
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
--- OUTSIDE RECORDS SUMMARY | 2024-10-17 08:14 | XMS_ITS | Data Portability ---
Author Organization [place] - [facility] [place] , [facility] Address [address] [place] [address] Assessment Encounter Date Assessment Date Assessment LastModified [...] 40 mg tablet,del ayed release 2023 024 [facility]/Pharmacy #[id number], [address], [place], [address], 18:51:55 Patient TargetsNo targets recorded. Patient Instructions Encounter Date Encounter Id Patient Instructions Last Modified By Organization Details Last Modified Time 05/26/2024 [id number] gastroesophageal reflux disease (GERD): care instructions Not [...] enidate ER 15 mg capsule,ext ended release [id number] 50 TAKE 1 CAPSULE BY MOUTH EVERY [...] SNOMED-CT Code Diagnosis ICD10 Code Diagnosis Note [id number] SHILOH May [facility] [address] [place] [address] 05/26/2024 18:25:00 05/27/2024 00:42:22 Gastroesophageal reflux disease [id number] K21.9 Health Concerns Section Related Observation LastModified by Organization Detai ls LastModified Time None Recorded Concern Status LastModified by Organization Details LastModified Time None Recorded Advance Directives Directive None Recorded Payers Encounter Date Sequence Insurance Name Policy Number Policy Zambrano Covered Member ID Zambrano Member ID Guarantor Name 05/26/2024 1 [facility] [id number] David Rider [id number] David Rider 05/26/2024 3 *SELF PAY* [id number] David Rider [id number] David Rider Notes Date Note Type Note [...] following state at the time of visit: [place]. The patient consents to the use of [employer] technology. Previous visits and labs reviewed, if available.Patient at time of visit located in: [place] HPI: pt reports he has been having [...] medications:- Hoarseness:+ Dental concerns:- Additional symptoms:- ERNESTO [address], [place], [address], [facility] 05/26/2024 18:55:05
== END 2024-10-17 08:10 | disposition home or self-care (01) ==
PROVIDERS: PCP Student in an Organized Health Care Education/Training Program; Visit Provider Surgery
DX: R68.81 Early satiety (principal)
CPT/HCPCS: 78264; A9541

== ENCOUNTER 2024-11-24 10:23 | Outpatient (CLI) | payer OTHER, SELFPAY ==
--- OUTSIDE RECORDS SUMMARY | 2024-11-24 10:32 | XMS_ITS | Patient Health Record ---
Author Organization [facility] Address [address] [place] [address] Care Team Providers Care Retail Sales Merchandiser Name Role Phone Boni Romero Primary Care Provider Manuelito Larson [phone] Allergies No Known Allergies Results Component Value Reference Range Notes [place] (Eskalith(R)), Serum Reviewed date:04/17/2024 09:59:04 AM Interpretation: Performing Lab:[facility] [place], [address] [facility], [place], Phone - [phone], Director - Edison Notes/Report: [place] (Eskalith(R)), Serum 0.8 0.5-1.2 mmol /L A [...] morning meal Orally Once a day Active Ondansetron HCl 4 MG 1 tablet Orally Once a day for 30 days As needed for nausea 03/27/2024 Active Dexmethylphenidate HCl ER 15 MG 1 capsule in the morning Orally Once a day. for 30 days 11/04/2024 Active Propranolol HCl ER 120 MG 1 capsule at b edtime Orally Once a day for 30 days 09/27/2023 Active [place] Carbonate 600 MG 1 capsule Orall y Twice a day for 30 days 11/04/2024 Active Dexmethylphenidate HCl ER 15 MG 1 capsule in the morning Orally Once a day. Please fill on or after November 21, 2024. for 30 days 10/02/2024 Active buPROPion HCl ER (XL) 300 MG 1 tablet in the morning Orally Once a day for 30 days 06/03/2021 Active Venlafaxine HCl ER 75 MG 1 capsule with food Orally Once a day for 30 days 10/26/2023 Active risperiDONE 2 MG 1 tablet on the tong ue and allow to dissolve. Take at bedtime. Orally Once a day for 30 days 11/04/2024 Active Social History Tobacco Use: Social History [...] brother Emotional: Mother- always , teacher. Sexual: cord splicer , friends of mother Job: [employer] in [place]. Works evenings. : none Legal: Has a [...] brother Emotional: Mother- always , teacher. Sexual: cord splicer , friends of mother Legal: Has a [...] brother Emotional: Mother- always , teacher. Sexual: cord splicer , friends of mother Job: [employer] in [place]. Works evenings. : none Legal: Has a [...] brother Emotional: Mother- always , teacher. Sexual: cord splicer , friends of mother Legal: Has a [...] brother Emotional: Mother- always , teacher. Sexual: cord splicer , friends of mother Job: [employer] in [place]. Works evenings. : none Social: parents shortly [...] brother Emotional: Mother- always , teacher. Sexual: cord splicer , friends of mother Job: [employer] in [place]. Works evenings. : none Social: parents shortly [...] brother Emotional: Mother- always , teacher. Sexual: cord splicer , friends of mother Job: [employer] in [place]. Works evenings. : none Social: parents shortly [...] brother Emotional: Mother- always , teacher. Sexual: cord splicer , friends of mother Job: [employer] in [place]. Works evenings. : none Social: parents shortly [...] brother Emotional: Mother- always , teacher. Sexual: cord splicer , friends of mother Job: [employer] in [place]. Works evenings. : none Social: parents shortly [...] brother Emotional: Mother- always , teacher. Sexual: cord splicer , friends of mother Job: [employer] in [place]. Works evenings. : none Social: parents shortly [...] brother Emotional: Mother- always , teacher. Sexual: cord splicer , friends of mother Job: [employer] in [place]. Works evenings. : none Social: parents shortly [...] brother Emotional: Mother- always , teacher. Sexual: cord splicer , friends of mother Job: [employer] in [place]. Works evenings. : none Social: parents shortly [...] brother Emotional: Mother- always , teacher. Sexual: cord splicer , friends of mother Job: [employer] in [place]. Works evenings. : none Social: parents shortly [...] brother Emotional: Mother- always , teacher. Sexual: cord splicer , friends of mother Job: [employer] in [place]. Works evenings. : none Legal: Has a [...] brother Emotional: Mother- always , teacher. Sexual: cord splicer , friends of mother Legal: Has a [...] brother Emotional: Mother- always , teacher. Sexual: cord splicer , friends of mother Job: [employer] in [place]. Works evenings. : none Social: parents shortly [...] brother Emotional: Mother- always , teacher. Sexual: cord splicer , friends of mother Job: [employer] in [place]. Works evenings. : none Social: parents shortly [...] brother Emotional: Mother- always , teacher. Sexual: cord splicer , friends of mother Job: [employer] in [place]. Works evenings. : none Social: parents shortly [...] brother Emotional: Mother- always , teacher. Sexual: cord splicer , friends of mother Job: [employer] in [place]. Works evenings. : none Social: parents shortly [...] brother Emotional: Mother- always , teacher. Sexual: cord splicer , friends of mother Job: [employer] in [place]. Works evenings. : none Social: parents shortly [...] brother Emotional: Mother- always , teacher. Sexual: cord splicer , friends of mother Job: [employer] in [place]. Works evenings. : none Social: parents shortly [...] brother Emotional: Mother- always , teacher. Sexual: cord splicer , friends of mother Job: [employer] in [place]. Works evenings. : none Social: parents shortly [...] brother Emotional: Mother- always , teacher. Sexual: cord splicer , friends of mother Job: [employer] in [place]. Works evenings. : none Social: parents shortly [...] brother Emotional: Mother- always , teacher. Sexual: cord splicer , friends of mother Job: [employer] in [place]. Works evenings. : none Social: parents shortly [...] brother Emotional: Mother- always , teacher. Sexual: cord splicer , friends of mother Job: [employer] in [place]. Works evenings. : none Social: parents shortly [...] brother Emotional: Mother- always , teacher. Sexual: cord splicer , friends of mother Job: [employer] in [place]. Works evenings. : none Social: parents shortly [...] brother Emotional: Mother- always , teacher. Sexual: cord splicer , friends of mother Job: [employer] in [place]. Works evenings. : none Social: parents shortly [...] brother Emotional: Mother- always , teacher. Sexual: cord splicer , friends of mother Job: [employer] in [place]. Works evenings. : none Social: parents shortly [...] brother Emotional: Mother- always , teacher. Sexual: cord splicer , friends of mother Job: [employer] in [place]. Works evenings. : none Social: parents shortly [...] brother Emotional: Mother- always , teacher. Sexual: cord splicer , friends of mother Job: [employer] in [place]. Works evenings. : none Social: parents shortly [...] brother Emotional: Mother- always , teacher. Sexual: cord splicer , friends of mother Job: [employer] in [place]. Works evenings. : none Social: parents shortly [...] brother Emotional: Mother- always , teacher. Sexual: cord splicer , friends of mother Job: [employer] in [place]. Works evenings. : none Social: parents shortly [...] brother Emotional: Mother- always , teacher. Sexual: cord splicer , friends of mother Job: [employer] in [place]. Works evenings. : none Social: parents shortly [...] brother Emotional: Mother- always , teacher. Sexual: cord splicer , friends of mother Job: [employer] in [place]. Works evenings. : none Social: parents shortly [...] brother Emotional: Mother- always , teacher. Sexual: cord splicer , friends of mother Job: [employer] in [place]. Works evenings. : none Social: parents shortly [...] brother Emotional: Mother- always , teacher. Sexual: cord splicer , friends of mother Job: [employer] in [place]. Works evenings. : none Social: parents shortly [...] brother Emotional: Mother- always , teacher. Sexual: cord splicer , friends of mother Job: [employer] in [place]. Works evenings. : none Social: parents shortly [...] brother Emotional: Mother- always , teacher. Sexual: cord splicer , friends of mother Job: [employer] in [place]. Works evenings. : none Social: parents shortly [...] brother Emotional: Mother- always , teacher. Sexual: cord splicer , friends of mother Job: [employer] in [place]. Works evenings. : none Social: parents shortly [...] brother Emotional: Mother- always , teacher. Sexual: cord splicer , friends of mother Job: [employer] in [place]. Works evenings. : none Social: parents shortly [...] brother Emotional: Mother- always , teacher. Sexual: cord splicer , friends of mother Job: [employer] in [place]. Works evenings. : none Social: parents shortly [...] brother Emotional: Mother- always , teacher. Sexual: cord splicer , friends of mother Job: [employer] in [place]. Works evenings. : none Social: parents shortly [...] brother Emotional: Mother- always , teacher. Sexual: cord splicer , friends of mother Job: [employer] in [place]. Works evenings. : none Social: parents shortly [...] brother Emotional: Mother- always , teacher. Sexual: cord splicer , friends of mother Job: [employer] in [place]. Works evenings. : none Social: parents shortly [...] brother Emotional: Mother- always , teacher. Sexual: cord splicer , friends of mother Job: [employer] in [place]. Works evenings. : none Social: parents shortly [...] brother Emotional: Mother- always , teacher. Sexual: cord splicer , friends of mother Job: [employer] in [place]. Works evenings. : none Social: parents shortly [...] brother Emotional: Mother- always , teacher. Sexual: cord splicer , friends of mother Job: [employer] in [place]. Works evenings. : none Social: parents shortly [...] brother Emotional: Mother- always , teacher. Sexual: cord splicer , friends of mother Job: [employer] in [place]. Works evenings. : none Social: parents shortly [...] brother Emotional: Mother- always , teacher. Sexual: cord splicer , friends of mother Job: [employer] in [place]. Works evenings. : none Social: parents shortly [...] brother Emotional: Mother- always , teacher. Sexual: cord splicer , friends of mother Job: [employer] in [place]. Works evenings. : none Social: parents shortly [...] brother Emotional: Mother- always , teacher. Sexual: cord splicer , friends of mother Job: [employer] in [place]. Works evenings. : none Social: parents shortly [...] brother Emotional: Mother- always , teacher. Sexual: cord splicer , friends of mother Job: [employer] in [place]. Works evenings. : none Social: parents shortly [...] brother Emotional: Mother- always , teacher. Sexual: cord splicer , friends of mother Job: [employer] in [place]. Works evenings. 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 confirmed Problem [id number] ROSY (generalized anxiety disorder) (F41.1) Active confirmed Problem Medication monitoring (807536111) Medication monitoring encounter (Z51.81) Active confirmed Problem Obesity (796232971) Obesity, unspecified classification, unspecified obesity type, unspecified whether serious comorbidity present (E66.9) Active confirmed Problem Recurrent major depression (67748895) Major depressive disorder, recurrent, in remission, unspecified (F33.40) Inactive confirmed Problem Recurrent major depression in remission (80812502) MDD (major depressive disorder), recurrent, in partial remission (F33.41) Inactive confirmed Problem Severe recurrent major depression without psychotic features (55771281) MDD (major depressive disorder), recurrent episode, severe (F33.2) Inactive confirmed Problem Bipolar affective disorder, currently manic, moderate (298930613) Bipolar 1 disorder with moderate rachel (F31.12) Problem resolved confirmed Encounters Encounter Location Date Provider Diagnosis [address] [address] 04/02/2024 Boni Romero Medication monitorin g encounter Z51.[address] [place] [address] 12/03/2023 Boni Romero Bipolar 1 disorder F31.9 ; Insomnia G47.00 ; Post-traumatic stress disorder, unspecified F43.10 ; ROSY (generalized anxiety disorder) F41.1 and ADHD (attention deficit hyperactivity disorder), inattentive type F90.[address] [place] [address] 12/31/2023 Boni Romero Bipolar 1 disorder F31.9 ; ADHD (attention deficit hyperactivity disorder), inattentive type F90.0 ; ROSY (generalized anxiety disorder) F41.1 and Insomnia G47.[address] [place] [address] 01/28/2024 Boni Romero Bipolar 1 disorder F31.9 ; Post-traumatic stress disorder, unspecified F43.10 ; ROSY (generalized anxiety disorder) F41.1 ; ADHD (attention deficit hyperactivity disorder), inattentive type F90.0 and Insomnia G47.[address] [address] 03/27/2024 Boni Romero Bipolar 1 disorder F31.9 ; ADHD (attention deficit hyperactivity disorder), inattentive type F90.0 ; ROSY (generalized anxiety disorder) F41.1 ; Insomnia G47.00 ; Medication monitoring encounter Z51.81 and Medication side effect [id number] [address] [place] [address] 04/22/2024 Boni Romero Bipolar 1 disorder F31.9 ; ADHD (attention deficit hyperactivity disorder), inattentive type F90.0 ; ROSY (generalized anxiety disorder) F41.1 ; Post-traumatic stress disorder, unspecified F43.10 and Insomnia G47.[address] [address] 05/12/2024 Boni Romero Bipolar 1 disorder F31.9 ; ADHD (attention deficit hyperactivity disorder), inattentive type F90.0 ; ROSY (generalized anxiety disorder) F41.1 ; Post-traumatic stress disorder, unspecified F43.10 and Insomnia G47.[address] [address] 06/10/2024 Boni Romero Bipolar 1 disorder F31.9 ; ADHD (attention deficit hyperactivity disorder), inattentive type F90.0 ; ROSY (generalized anxiety disorder) F41.1 ; Post-traumatic stress disorder, unspecified F43.10 and Insomnia G47.[address] [address] 06/23/2024 Boni Romero Bipolar 1 disorder F31.9 ; ADHD (attention deficit hyperactivity disorder), inattentive type F90.0 ; ROSY (generalized anxiety disorder) F41.1 ; Post-traumatic stress disorder, unspecified F43.10 and Insomnia G47.[address] [address] 07/07/2024 Boni Romero Bipolar 1 disorder F31.9 ; Post-traumatic stress disorder, unspecified F43.10 ; ROSY (generalized anxiety disorder) F41.1 ; Insomnia G47.00 and ADHD (attention deficit hyperactivity disorder), inattentive type F90.[address] [address] 09/02/2024 Boni Romero Bipolar 1 disorder F31.9 ; Post-traumatic stress disorder, unspecified F43.10 ; ROSY (generalized anxiety disorder) F41.1 ; ADHD (attention deficit hyperactivity disorder), inattentive type F90.0 and Insomnia G47.[address] [address] 10/02/2024 Boni Romero Bipolar 1 disorder F31.9 ; Post-traumatic stress disorder, unspecified F43.10 ; ROSY (generalized anxiety disorder) F41.1 ; ADHD (attention deficit hyperactivity disorder), inattentive type F90.0 and Insomnia G47.[address] [address] 11/04/2024 Boni Romero Bipolar 1 disorder F31.9 ; Post-traumatic stress disorder, unspecified F43.10 ; ROSY (generalized anxiety disorder) F41.1 and ADHD (attention deficit hyperactivity disorder), inattentive type F90.[address] [address] 11/20/2024 Boni Romero [address] [address] 12/14/2023 Boni Romero ADHD (attention deficit hyperactivity disorder), inattentive type F90.[address] [address] 12/17/2023 Boni Romero [address] [address] 01/10/2024 Boni Romero [address] [place] [address] 01/15/2024 Boni Romero [address] [address] 02/19/2024 Boni Romero ADHD (attention deficit hyperactivity disorder), inattentive type F90.0 [facility] [address] [place] [address] 03/18/2024 Boni Romero [address] [address] 03/28/2024 Boni Romero [address] [address] 04/25/2024 Boni Romero Bipolar 1 disorder F31.[address] [address] 06/24/2024 Boni Romero ROSY (generalized anxiety disorder) F41.[address] [address] 06/27/2024 Boni Romero ROSY (generalized anxiety disorder) F41.[address] [address] 07/03/2024 Boni Romero [address] [address] 10/09/2024 Boni Romero [address] [address] 05/27/2024 Boni Romero [address] [address] 06/11/[address] [address] 08/04/2024 Boni Romero ADHD (attention deficit hyperactivity disorder), inattentive type F90.[address] [address] 08/21/2024 Boni Romero ROSY (generalized anxiety disorder) F41.[address] [address] 09/03/2024 Boni Romero [address] [place] [address] 09/27/2024 Boni Romero Assessments Encounter Date Diagnosis (ICD Code) Assessment Notes Treatment Notes Treatment Clinical Notes Section Notes 04/02/2024 Medication monitoring encounter (ICD-10 - Z51.81) 04/22/2024 Bipolar 1 disorder (ICD-10 - F31.9) Client requests to replace Latuda with Vraylar to aide with mild depression and secure stability. [place] continued at 3 tablets per night (1350 mg) due to lithium level results. No other treatment plan changes. 06/10/2024 Bipolar 1 disorder (ICD-10 - F31.9) 06/24/2024 ROSY (generalized anxiety disorder) (ICD-10 - F41.1) 11/04/2024 Bipolar 1 disorder (ICD-10 - F31.9) Client continues to throw up due to hiatal hernia. States having surgery for this in mid-November. Missing work quite often due to this and having mental health problems due to not keeping medications down. Having increased depression/fatigu e, mood swings and irritability. Discussed switching Vraylar to risperidone disintegrating to assist bioavailability and changing lithium from ER to immediate release 600 mg BID. Lunesta/Seroquel/ Vraylar discontinued. Other medications continued and client encouraged to take when he feels he is able to keep down. Encouraged client to take with his and GI team about short term disability process to protect his employment. 10/02/2024 Bipolar 1 disorder (ICD-10 - F31.9) No changes to tx plan at present. Discussed with client, due to frequent vomiting, would recomment that after surgery lithium level be checked. Likely lithium level very inconsisitent currently. Client asks for six month FMLA paperwork to be refilled out. Will fill out. 09/02/2024 Bipolar 1 disorder (ICD-10 - F31.9) Client doing wel l mentally, no changes needed at this time. 08/21/2024 ROSY (generalized anxiety disorder) (ICD-10 - [...] with GI regarding vomiting and hernia issues. 06/27/2024 ROSY (generalized anxiety disorder) (ICD-10 - F41.1) 06/23/2024 Bipolar 1 disorder (ICD-10 - F31.9) Vraylar increase d to 3mg due to disrupted sleep and [...] better on Focalin ER than on Adderall. 04/25/2024 Bipolar 1 disorder (ICD-10 - F31.9) 03/27/2024 Bipolar 1 disorder (ICD-10 - F31.9) Unclear cause of client's current nausea/vomiting. Discussed for client to decrease lithium to [...] inattentive type (ICD-10 - F90.0) Unclear cause o f client's current nausea/vomiting. Discussed for client to decrease lithium to [...] understanding and is agreeable with this plan. 02/19/2024 ADHD (attention deficit hyperactivity disorder), inattentive type (ICD-10 - F90.0) 01/28/2024 Bipolar 1 disorder (ICD-10 - F31.9) 12/31/2023 Bipolar 1 disorder (ICD-10 - F31.9) Treatment 1. Bipolar 1 disorder Refill [place] Carbonate ER Tablet Extended Release, 450 MG, [...] disorder), inattentive type (ICD-10 - F90.0) 12/03/2023 Bipolar 1 disorder (ICD-10 - F31.9) Client doing well, no treatment plan changes needed. 12/03/2023 Insomnia (ICD-10 - G47.00) Client doing well, no treatment plan changes needed. 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 Bipolar 1 disorder Refill [place] Carbonate ER Tablet Extended Release, 450 MG, [...] a day., 30 days, 30, Refills 0 01/28/2024 Post-traumatic stress disorder, unspecified (ICD-10 - F43.10) 03/27/2024 ROSY (generalized anxiety disorder) (ICD-10 - F41.1) Unclear cause o f client's current nausea/vomiting. Discussed for client to decrease lithium to [...] and is agreeable with this plan. 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 Client has done much better on Focalin ER than on Adderall. 06/23/2024 ADHD (attention deficit hyperactivity disorder), inattentive type (ICD-10 - F90.0) Vraylar increas ed to 3mg due to disrupted sleep and [...] with GI regarding vomiting and hernia issues. 09/02/2024 Post-traumatic stress disorder, unspecified (ICD-10 - F43.10) Client doing wel l mentally, no changes needed at this time. 10/02/2024 Post-traumatic stress disorder, unspecified (ICD-10 - F43.10) No changes to tx plan at present. Discussed with client, due to frequent vomiting, would recomment that after surgery lithium level be checked. Likely lithium level very inconsisitent currently. Client asks for six month FMLA paperwork to be refilled out. Will fill out. 11/04/2024 Post-traumatic stress disorder, unspecified (ICD-10 - F43.10) Client continues to throw up due to hiatal hernia. States having surgery for this in mid-November. Missing work quite often due to this and having mental health problems due to not keeping medications down. Having increased depression/fatigu e, mood swings and irritability. Discussed switching Vraylar to risperidone disintegrating to assist bioavailability and changing lithium from ER to immediate release 600 mg BID. Lunesta/Seroquel/ Vraylar discontinued. Other medications continued and client encouraged to take when he feels he is able to keep down. Encouraged client to take with his and GI team about short term disability process to protect his employment. 06/10/2024 ADHD (attention deficit hyperactivity disorder), inattentive type (ICD-10 - F90.0) 04/22/2024 ADHD (attention deficit hyperactivity disorder), inattentive type (ICD-10 - F90.0) Client requests to replace Latuda with Vraylar to aide with mild depression and secure stability. [place] continued at 3 tablets per night (1350 mg) due to lithium level results. No other treatment plan changes. 04/22/2024 ROSY (generalized anxiety disorder) (ICD-10 - F41.1) Client requests to replace Latuda with Vraylar to aide with mild depression and secure stability. [place] continued at 3 tablets per night (1350 mg) due to lithium level results. No other treatment plan changes. 06/10/2024 ROSY (generalized anxiety disorder) (ICD-10 - F41.1) 11/04/2024 ROSY (generalized anxiety disorder) (ICD-10 - F41.1) Client continue s to throw up due to hiatal hernia. States having surgery for this in mid-November. Missing work quite often due to this and having mental health problems due to not keeping medications down. Having increased depression/fatigu e, mood swings and irritability. Discussed switching Vraylar to risperidone disintegrating to assist bioavailability and changing lithium from ER to immediate release 600 mg BID. Lunesta/Seroquel/ Vraylar discontinued. Other medications continued and client encouraged to take when he feels he is able to keep down. Encouraged client to take with his and GI team about short term disability process to protect his employment. 10/02/2024 ROSY (generalized anxiety disorder) (ICD-10 - F41.1) No changes to t x plan at present. Discussed with client, due to frequent vomiting, would recomment that after surgery lithium level be checked. Likely lithium level very inconsisitent currently. Client asks for six month [place] paperwork to be ref[place] out. Will fill out. 09/02/2024 ROSY (generalized anxiety disorder) (ICD-10 - F41.1) Client doing we ll mentally, no changes needed at this time. 06/23/2024 ROSY (generalized anxiety disorder) (ICD-10 - F41.1) Vraylar increas ed to 3mg due to disrupted sleep and [...] appt on 07-07 to reassess condition. 05/12/2024 ROSY (generalized anxiety disorder) (ICD-10 - F41.1) Client doing well, no treatment plan changes needed. Client has done much better on Focalin ER than on Adderall. 03/27/2024 Insomnia (ICD-10 - G47.00) Unclear cause of client's current nausea/vomiting. Discussed for client to decrease lithium to [...] if keeping lithium down and throwing up. Daljit prescribed for client. Client verbalizes understanding and is agreeable with this plan. 12/31/2023 ROSY (generalized anxiety disorder) (ICD-10 - F41.1) Treatment 1. Bipolar 1 disorder Refill [place] Carbonate ER Tablet Extended Release, 450 MG, [...] a day., 30 days, 30, Refills 0 01/28/2024 ROSY (generalized anxiety disorder) (ICD-10 - F41.1) 07/07/2024 ROSY (generalized anxiety disorder) (ICD-10 - [...] with GI regarding vomiting and hernia issues. 12/03/2023 Post-traumatic stress disorder, unspecified (ICD-10 - F43.10) Client doing well, no treatment plan changes needed. 12/03/2023 ROSY (generalized anxiety disorder) (ICD-10 - F41.1) Client doing well, no treatment plan changes needed. 12/31/2023 Insomnia (ICD-10 - G47.00) Treatment 1. Bipolar 1 disorder Refill [place] Carbonate ER Tablet Extended Release, 450 MG, [...] a day., 30 days, 30, Refills 0 03/27/2024 Medication monitoring encounter (ICD-10 - Z51.81) Unclear cause of client's current nausea/vomiting. Discussed for client to decrease lithium to [...] hyperactivity disorder), inattentive type (ICD-10 - F90.0) 05/12/2024 Post-traumatic stress disorder, unspecified (ICD-10 - [...] GI regarding vomiting and hernia issues. 06/23/2024 Post-traumatic stress disorder, unspecified (ICD-10 - F43.10) Vraylar increase d to 3mg due to disrupted sleep and [...] Has appt on 07-07 to reassess condition. 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 Discussed with client, due to frequent vomiting, would recomment that after surgery lithium level be checked. Likely lithium level very inconsisitent currently. Client asks for six month FMLA paperwork to be refilled out. Will fill out. 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 States having surgery for this in mid-November. Missing work quite often due to this and having mental health problems due to not keeping medications down. Having increased depression/fatigu e, mood swings and irritability. Discussed switching Vraylar to risperidone disintegrating to assist bioavailability and changing lithium from ER to immediate release 600 mg BID. Lunesta/Seroquel/ Vraylar discontinued. Other medications continued and client encouraged to take when he feels he is able to keep down. Encouraged client to take with his and GI team about short term disability process to protect his employment. 06/10/2024 Post-traumatic stress disorder, unspecified (ICD-10 - F43.10) 04/22/2024 Post-traumatic stress disorder, unspecified (ICD-10 - F43.10) Client requests to replace Latuda with Vraylar to aide with mild depression and secure stability. [place]ing continued at 3 tablets per night (1350 mg) due to lithium level results. No other treatment plan changes. 04/22/2024 Insomnia (ICD-10 - G47.00) [place] uses of medication, suicidal ideation with SSRIs, self-administrati on and compliance with medication along with how to safely store medication. Verbal informed consent obtained. Client agrees to return sooner if symptoms worsen or if suicidal or homicidal ideations occur. Client has the phone number to the 24-hour crisis line at [facility]. Questions addressed. Client verbalized understanding of all information and is agreeable to treatment plan. Client requests to replace Latuda with Vraylar to aide with mild depression and secure stability. [place] continued at 3 tablets per night (1350 mg) due to lithium level results. No other treatment plan changes. 06/10/2024 Insomnia (ICD-10 - G47.00) 09/02/2024 Insomnia (ICD-10 - G47.00) Client doing wel l mentally, no changes needed at this time. 10/02/2024 Insomnia (ICD-10 - G47.00) No changes to tx plan at present. Discussed with client, due to frequent vomiting, would recomment that after surgery lithium level be checked. Likely lithium level very inconsisitent currently. Client asks for six month FMLA paperwork to be refilled out. Will fill out. 06/23/2024 Insomnia (ICD-10 - G47.00) Vraylar increase d to 3mg due to disrupted sleep and [...] GI regarding vomiting and hernia issues. 05/12/2024 Insomnia (ICD-10 - G47.00) Client doing well, no treatment plan changes needed. Client has done much better on Focalin ER than on Adderall. 01/28/2024 Insomnia (ICD-10 - G47.00) 03/27/2024 Medication side effect (ICD-10 - T88.7XXA) Unclear cause of client's current nausea/vomiting. Discussed for client to decrease lithium to [...] and is agreeable with this plan. 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 [place]03[place]2023 [place]. Discussed sleep hygiene and caffeine intake with encouragement to limit electronic devices an hour before bed and to limit caffeine after 3:00pm. Exercise benefits for mood and health discussed. Psychoeducation regarding psychiatric illness provided. Client was educated about risks and benefits of medication, alternatives to medication, off label uses of medication, suicidal ideation with SSRIs, self-administrati on and compliance with medication along with how to safely store medication. Verbal informed consent obtained. Client agrees to return sooner if symptoms worsen or if suicidal or homicidal ideations occur. Client has the phone number to the 24-hour crisis line at [facility]. Questions addressed. Client verbalized understanding of all information and is agreeable to treatment plan. Client doing well, no treatment plan changes needed. 12/31/2023 [place]. Discussed sleep hygiene and caffeine intake with encouragement to limit electronic devices an hour before bed and to limit caffeine after 3:00pm. Exercise benefits for mood and health discussed. Psychoeducation regarding psychiatric illness provided. Client was educated about risks and benefits of medication, alternatives to medication, off label uses of medication, suicidal ideation with SSRIs, self-administrati on and compliance with medication along with how to safely store medication. Verbal informed consent obtained. Client agrees to return sooner if symptoms worsen or if suicidal or homicidal ideations occur. Client has the phone number to the 24-hour crisis line at [facility]. Questions addressed. Client verbalized understanding of all information and is agreeable to treatment plan. Treatment 1. Bipolar 1 disorder Refill [place] Carbonate ER Tablet Extended Release, 450 MG, [...] a day., 30 days, 30, Refills 0 01/28/2024 [place]. Discussed sleep hygiene and caffeine intake with encouragement to limit electronic devices an hour before bed and to limit caffeine after 3:00pm. Exercise benefits for mood and health discussed. Psychoeducation regarding psychiatric illness provided. Client was educated about risks and benefits of medication, alternatives to medication, off label uses of medication, suicidal ideation with SSRIs, self-administrati on and compliance with medication along with how to safely store medication. Verbal informed consent obtained. Client agrees to return sooner if symptoms worsen or if suicidal or homicidal ideations occur. Client has the phone number to the 24-hour crisis line at [facility]. Questions addressed. Client verbalized understanding of all information and is agreeable to treatment plan. 03/27/2024 [place]. Discussed sleep hygiene and caffeine intake with encouragement to limit electronic devices an hour before bed and to limit caffeine after 3:00pm. Exercise benefits for mood and health discussed. Psychoeducation regarding psychiatric illness provided. Client was educated about risks and benefits of medication, alternatives to medication, off label uses of medication, suicidal ideation with SSRIs, self-administrati on and compliance with medication along with how to safely store medication. Verbal informed consent obtained. Client agrees to return sooner if symptoms worsen or if suicidal or homicidal ideations occur. Client has the phone number to the 24-hour crisis line at [facility]. Questions addressed. Client verbalized understanding of all information and is agreeable to treatment plan. Unclear cause of client's current nausea/vomiting. Discussed for client to decrease lithium to [...] and is agreeable with this plan. 05/12/2024 [place]. Discussed sleep hygiene and caffeine intake with encouragement to limit electronic devices an hour before bed and to limit caffeine after 3:00pm. Exercise benefits for mood and health discussed. Psychoeducation regarding psychiatric illness provided. Client was educated about risks and benefits of medication, alternatives to medication, off label uses of medication, suicidal ideation with SSRIs, self-administrati on and compliance with medication along with how to safely store medication. Verbal informed consent obtained. Client agrees to return sooner if symptoms worsen or if suicidal or homicidal ideations occur. Client has the phone number to the 24-hour crisis line at [facility]. Questions addressed. Client verbalized understanding of all information and is agreeable to treatment plan. Client doing well, no treatment plan changes needed. Client has done much better on Focalin ER than on Adderall. 06/10/2024 [place]. Discussed sleep hygiene and caffeine intake with encouragement to limit electronic devices an hour before bed and to limit caffeine after 3:00pm. Exercise benefits for mood and health discussed. Psychoeducation regarding psychiatric illness provided. Client was educated about risks and benefits of medication, alternatives to medication, off label uses of medication, suicidal ideation with SSRIs, self-administrati on and compliance with medication along with how to safely store medication. Verbal informed consent obtained. Client agrees to return sooner if symptoms worsen or if suicidal or homicidal ideations occur. Client has the phone number to the 24-hour crisis line at [facility]. Questions addressed. Client verbalized understanding of all information and is agreeable to treatment plan. 06/23/2024 [place]. Discussed sleep hygiene and caffeine intake with encouragement to limit electronic devices an hour before bed and to limit caffeine after 3:00pm. Exercise benefits for mood and health discussed. Psychoeducation regarding psychiatric illness provided. Client was educated about risks and benefits of medication, alternatives to medication, off label uses of medication, suicidal ideation with SSRIs, self-administrati on and compliance with medication along with how to safely store medication. Verbal informed consent obtained. Client agrees to return sooner if symptoms worsen or if suicidal or homicidal ideations occur. Client has the phone number to the 24-hour crisis line at [facility]. Questions addressed. Client verbalized understanding of [...] appt on 07-07 to reassess condition. 07/07/2024 Other Discussed sleep hygiene and caffeine intake with encouragement to limit electronic devices an hour before bed and to limit caffeine after 3:00pm. Exercise benefits for mood and health discussed. Psychoeducation regarding psychiatric illness provided. Client was educated about risks and benefits of medication, alternatives to medication, off label uses of medication, suicidal ideation with SSRIs, self-administrati on and compliance with medication along with how to safely store medication. Verbal informed consent obtained. Client agrees to return sooner if symptoms worsen or if suicidal or homicidal ideations occur. Client has the phone number to the 24-hour crisis line at [facility]. Questions addressed. Client verbalized understanding of [...] with GI regarding vomiting and hernia issues. 09/02/2024 [place]. Discussed sleep hygiene and caffeine intake with encouragement to limit electronic devices an hour before bed and to limit caffeine after 3:00pm. Exercise benefits for mood and health discussed. Psychoeducation regarding psychiatric illness provided. Client was educated about risks and benefits of medication, alternatives to medication, off label uses of medication, suicidal ideation with SSRIs, self-administrati on and compliance with medication along with how to safely store medication. Verbal informed consent obtained. Client agrees to return sooner if symptoms worsen or if suicidal or homicidal ideations occur. Client has the phone number to the 24-hour crisis line at [facility]. Questions addressed. Client verbalized understanding of all information and is agreeable to treatment plan. Client doing well mentally, no changes needed at this time. 10/02/2024 [place]. Discussed sleep hygiene and caffeine intake with encouragement to limit electronic devices an hour before bed and to limit caffeine after 3:00pm. Exercise benefits for mood and health discussed. Psychoeducation regarding psychiatric illness provided. Client was educated about risks and benefits of medication, alternatives to medication, off label uses of medication, suicidal ideation with SSRIs, self-administrati on and compliance with medication along with how to safely store medication. Verbal informed consent obtained. Client agrees to return sooner if symptoms worsen or if suicidal or homicidal ideations occur. Client has the phone number to the 24-hour crisis line at [facility]. Questions addressed. Client verbalized understanding of all information and is agreeable to treatment plan. No changes to tx plan at present. Discussed with client, due to frequent vomiting, would recomment that after surgery lithium level be checked. Likely lithium level very inconsisitent currently. Client asks for six month FMLA paperwork to be refilled out. Will fill out. 11/04/2024 [place]. Discussed sleep hygiene and caffeine intake with encouragement to limit electronic devices an hour before bed and to limit caffeine after 3:00pm. Exercise benefits for mood and health discussed. Psychoeducation regarding psychiatric illness provided. Client was educated about risks and benefits of medication, alternatives to medication, off label uses of medication, suicidal ideation with SSRIs, self-administrati on and compliance with medication along with how to safely store medication. Verbal informed consent obtained. Client agrees to return sooner if symptoms worsen or if suicidal or homicidal ideations occur. Client has the phone number to the 24-hour crisis line at [facility]. Questions addressed. Client verbalized understanding of all information and is agreeable to treatment plan. Client continues to throw up due to hiatal hernia. States having surgery for this in mid-November. Missing work quite often due to this and having mental health problems due to not keeping medications down. Having increased depression/fatigu e, mood swings and irritability. Discussed switching Vraylar to risperidone disintegrating to assist bioavailability and changing lithium from ER to immediate release 600 mg BID. Lunesta/Seroquel/ Vraylar discontinued. Other medications continued and client encouraged to take when he feels he is able to keep down. Encouraged client to take with his and GI team about short term disability process to protect his employment. Plan Of Treatment Next Appt Details Provider Name:Boni palmer, 12/01/2024 09:40:00 AM, [address] [facility] , [place], [address], Insurance Providers Payer Name Payer Address Payer Phone Subscriber Number Group Number Insured Name Patient Relationship to Insured Coverage Start Date Coverage End Date [facility] [address] [place] [address] [id number] David Rider Self - patient is the insured 2 Medical (General) History Medical History History ICD Code Bipolar 1 disorder with moderate rachel ( resolved 07/07/2022) Surgical History Surgery Date(Month/Year) Spinal fusion 2011 Hospitalization History Reason Date(Month/Year) [facility] 2020
--- OUTSIDE RECORDS SUMMARY | 2024-11-24 10:32 | XMS_ITS | Clinical Summary ---
Author Organization [facility] Address [address] [place] [address] Care Team Providers Care Melter Supervisor Name Role Phone Gurdeepabelardokenishajesus albertoHaris Vicente HIDALGO Primary Care Provider + Allergies [...] mg total) by mouth daily. 4 Active sucralfate (CARAFATE) 1 G tabletIndication s:Gastroesophage al reflux disease, unspecified whether esophagitis present Take 1 tablet (1 g total) by mouth 3 (three) times daily before meals. 90 tablet 2 5 Active cefdinir (OMNICEF) 300 MG Cap capsuleIndicatio ns:Subacute cough Take 1 capsule (300 mg total) by mouth 2 (two) times daily. 20 capsule 5 Active omeprazole (PRILOSEC) 40 MG capsuleIndicatio ns:Gastroesophag eal reflux disease, unspecified whether esophagitis present take 1 capsule daily 180 capsule 5 Active omeprazole (PRILOSEC) 40 MG capsuleIndicatio ns:Gastroesophag eal reflux disease, unspecified whether esophagitis present Take 1 capsule twice daily for 6 weeks, then take 1 capsule daily 180 capsule 1 5 11/11/19 25 Discontinu ed(Reorder ) Active Problems Problem Noted Date Diagnosed Date [...] Encounters Date Type Department Care Team Description 10/17/2024 Scan [facility] Scanned, Doc Med Group Procedure (SCAN) 10/06/2024 [employer] Post Message Enc [facility] Medical [facility] Multispecialty Care - [address], [address] [place] [address] Georgina, [facility] Provider Time 10/06/2024 Telephone [facility] Multispecialty Care - [facility] [address] [facility] [place] [address] Mary Dumont NP Appointment Reminder 10/02/2024 Scan [facility] INFO SRVCS Scanned, Doc Med Group Image (SCAN) 09/30/2024 Scan [facility] INFO [facility] Scanned, Doc Med Group Ultrasound (SCAN) 09/25/2024 Telephone [facility] Family & Internal [address] [phone] Haris Hoffman, DO Information 09/03/2024 Scan [facility] INFO [facility]CS Scanned, Doc Med Group 08/28/2024 Telephone [facility] Internal [address] [phone] Haris Hoffman, DO TCM from Last 3 Months Immunizations Immunization Administration Dates Next Due Fluzone (IIV3, Trivalent, [...] Sex Assigned at Male 07/30/2024 9:03 AM BEATER ROOM SUPERVISOR Legal Sex Male 7:17 PM CDT Gender Identity Male 07/30/2024 9:03 AM BEATER ROOM SUPERVISOR Sexual Orientation Not on file Occupation Industry Job Start Date Job End Date Not on file Not on file Not on file Not on file Last Filed Vital Signs Vital Sign Reading Time Taken Comments Blood Pressure 126/82 08/15/2024 9:50 AM BEATER ROOM SUPERVISOR Pulse 72 08/15/2024 9:50 AM BEATER ROOM SUPERVISOR Temperature 36.9 C (98.4 F) 08/15/2024 9:50 AM BEATER ROOM SUPERVISOR Respiratory Rate 20 08/15/2024 9:50 AM BEATER ROOM SUPERVISOR Oxygen Saturation 97% 08/15/2024 9:50 AM BEATER ROOM SUPERVISOR Inhaled Oxygen Concentration - - Weight 129.7 kg (285 lb 14.4 oz) 08/15/2024 9:50 AM BEATER ROOM SUPERVISOR Height 188 cm (6' 2 ) 08/15/2024 9:50 AM BEATER ROOM SUPERVISOR Body Mass Index 36.71 08/15/2024 9:50 AM BEATER ROOM SUPERVISOR Plan of Treatment Health Maintenance Due Date Last Done Comments Hepatitis B Vaccines (1 of 3 - 19+ 3-dose series) 1997 Annual Physical 05/09/2020 05/09/2019 Colorectal Cancer Screening Colonoscopy (10 Years) 10/18/2028 10/18/2018 DTaP, Tdap and Td Vaccines (2 - Td or Tdap) 09/02/2030 09/02/2020 Hepatitis C Completed 11/21/2021 COVID-19 Vaccine Completed 07/30/2024, , 10/31/2020, Additional history exists PHQ-2 (Physician [place]) Completed 07/30/2024 Meningococcal B Vaccine Aged Out No l onger eligible based on patient's age to complete this topic Meningococcal Vaccine Aged Out No yvette maciel eligible based on patient's age to complete this topic Pneumococcal Vaccine: Pediatrics (0 to 5 Years) and At-Risk Patients (6 to 49 Years) Aged Out No longer eligible based on patient's age to complete this topic RSV Immunizations Under 20 Months Aged Out No longer eligible based on patient's age to complete this topic Procedures Procedure Name Priority Date/Time Associated Diagnosis Comments PROCEDURE GENERIC (SCAN ORDER) 10/17/2024 IMAGE GENERIC 10/02/2024 ULTRASOUND GENERIC (SCAN ORDER) 09/30/2024 HEPATITIS C ANTIBODY Routine 11/21/2021 7:56 AM CDT Need for hepatitis C screening test COLONOSCOPY GENERIC (SCAN ORDER) 10/18/2018 from Last 3 Months or Most Recently Relevant to Health Maintenance Results * PROCEDURE GENERIC (SCAN ORDER) (10/17/2024) 10/17/2024 WITOI [facility] Scanned SCANNING Final Resu lt * IMAGE GENERIC (10/02/2024) Anatomical Region Laterality Modality Other 10/02/2024 Result [employer] [facility] Scanned SCANNING Final Resu lt * ULTRASOUND GENERIC (SCAN ORDER) (09/30/2024) Anatomical Region Laterality Modality Other 09/30/2024 Result [employer] [facility] Scanned SCANNING Final Resu lt * HEPATITIS C ANTIBODY (11/21/2021 7:56 AM CDT) HEPATITIS C AB NON-REACTI VE NON-REACT [place] 11/21/2021 6:32 PM CDT [facility] Comment: ANTIBODIES TO HCV NOT DETECTED. DOES NOT EXCLUDE THE POSSIBILITY OF EXPOSURE TO HCV. 11/21/2021 7:56 AM CDT WITOI Haris Hoffman DO LABORATORY Final Re sult [facility] [address] [place] [address], [id number] * COLONOSCOPY GENERIC (SCAN ORDER) (10/18/2018) 10/18/2018 [facility] Scanned SCANNING Final Resu lt from Last 3 Months or Most Recently Relevant to Health Maintenance Insurance [facility] Care Teams Melter Supervisor Relationship Specialty Start Date End Date Haris Hoffman DO [address] [place] [id number] PCP - General FAMILY PRACTICE 05/09/19
--- OUTSIDE RECORDS SUMMARY | 2024-11-24 10:32 | XMS_ITS | Encounter Summary ---
Author Organization [facility] Address [address] [place] [id number] Care Team Providers Care Signal Person Name Role Phone Haris Hoffman DO Primary Care Provider + Encounter Details Date Type Department Care Team (Late st Contact Info) Description 10/06/2024 [employer] Message Enc [facility] Medical Group Multispecialty Care - [facility] [address] [facility], [address] [place] [phone] [employer], [facility] Provider Time Social History Tobacco Use Types [...] Sex Assigned at Male 07/30/2024 9:03 AM RISK ANALYST Legal Sex Male 7:17 PM CDT Gender Identity Male 07/30/2024 9:03 AM RISK ANALYST Sexual Orientation Not on file Occupation Industry Job Start Date Job End Date Not on file Not on file Not on file Not on file documented as of this encounter Plan of Treatment Not on file documented as of this encounter Visit Diagnoses Not on filedocumented in this encounter Care Teams Signal Person Relationship Specialty Start Date End Date Haris Hoffman DO [address] [place] [id number] PCP - General FAMILY PRACTICE 05/09/19 documented as of this encounter
--- OUTSIDE RECORDS SUMMARY | 2024-11-24 10:32 | XMS_ITS ---
Author Organization [facility] Address [address] [place] [address] Care Team Providers Care Canvas Cutter Machine Name Role Phone Boni Romero Primary Care Provider [phone] Manuelito Larson [phone] REASON FOR VISIT return call Social History Sex Assigned At : Social History Observation Description Sex Assigned At Male Encounters Encounter Location Date Provider Diagnosis [facility] [address] [place] [address] 11/20/2024 Boni Romero Plan Of Treatment Next Appt Details Provider Name:Boni Nuno , 12/01/2024 09:40:00 AM, [address], [place], [address], Progress Notes * David POWERSDOB:1980 (44 yo M)Acc No.[id number]:11/20/2024 UNLOCKED PROGRESS NOTE Patient: David ALBARADO :1980 A ge:44 Y S ex:Male Address:[address] [place], [address] * * Date:
--- OUTSIDE RECORDS SUMMARY | 2024-11-24 10:32 | XMS_ITS | Clinical Summary ---
Author Organization [facility] Address [address] [place] [address] Care Team Providers Care Caustic Plant Worker Name Role Phone Haris Hoffman DO Primary Care Provider + Source Comments [facility],non-owned Affiliates and Associated Physician Practices is amultiple site organization consisting of ambulatory clinics and hospital sitesin [place], [place], [place] and [place]. This disclosure is being madepursuant to the Care Everywhere program and may not contain all information available regarding this patient. Last updated 18.[facility] Allergies No known active allergies Medications * This document contains information received from the source organization and may not represent a complete record from that organization. * Be aware that medications may not be up to date on this document. Alwaysverify current medications with the patient. Cholecalciferol (VITAMIN D PO) Activ e fluticasone propionate (FLONASE ALLERGY RELIEF) 50 MCG/ACT nasal sprayIndication s:Allergic Rhinitis Clawson 2 sprays into each nostril once daily Reasons: Allergic Rhinitis 1 bottles [address] (DEPAKOTE) 500 MG tablet Take 500 mg by mouth 2 times daily Active buPROPion XL 24hr (WELLBUTRIN-XL) 300 MG tablet Take 300 mg by mouth every morning Active busPIRone (BUSPAR) 10 MG tablet Take 10 mg by mouth 2 times daily Active ARIPiprazole (ABILIFY) 5 MG tabletIndicatio ns:Bipolar Mood Disorder Take 1 (one) tablet by mouth once daily Reasons: Manic-Depressi on 7 tablet 1 Active gabapentin (NEURONTIN) 300 MG capsuleIndicati ons:Anxiety Take 1 (one) capsule by mouth 2 times daily Reasons: Feeling Anxious 14 capsule 1 Active meclizine (Antivert) 25 MG tablet Take 1 (one) tablet by mouth 3 times daily as needed for Dizziness 30 tablet 2 Active ondansetron, disintegrating, (Zofran ODT) 4 MG tablet Take 1 (one) tablet by mouth every 6 hours as needed for Nausea/Vomitin g Allow tablet to dissolve on the tongue 20 tablet 2 Active Active Problems Problem Noted Date Diagnosed [...] at Not on file 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 Gender Identity Not on file Sexual Orientation [...] Health Maintenance Due Date Last Done Comments RO (AGES 45-75) - COL ON CA SCREENING [...] - 2023-2 5 season) 2024 10/31/2020, 10/10/2020 DEPRESSION SCREENING 07/16/2024 INFLUENZA VACCINE (Season Ended) 2025 SCREENING FOR DIABETES 05/04/2025 05/04/2022 ZOSTER VACCINE [...] COMPREHENSIVE METABOLIC PANEL (05/04/2022 9:45 AM CDT) [facility] Glucose 97 70 - 105 mg/dL 05/04/2022 10:10 AM CDT [facility] Sodium 138 136 - 145 mmol/L 05/04/2022 10:10 AM CDT [facility] Potassium 4.1 3.5 - 5.1 mmol/L 05/04/2022 10:10 AM CDT [facility] Chloride 106 98 - 107 mmol/L 05/04/2022 10:10 AM CDT [facility] CO2 20(L) 23 - 31 mmol/L 05/04/2022 10:10 AM CDT [facility] Calcium 9.6 8.4 - 10.4 mg/dL 05/04/2022 10:10 AM T [facility] Anion Gap 12 8 - 18 mmol/L 05/04/2022 10:10 AM CDT [facility] BUN 9 8.9 - 20.6 mg/dL 05/04/2022 10:10 AM T [facility] Creatinine 0.88 0.72 - 1.25 mg/dL 05/04/2022 10:10 AM [facility] Alkaline Phosphatase 88 40 - 150 U/L 05/04/2022 10:10 AM CDT [facility] ALT 46 0 - 61 U/L 05/04/2022 10:10 AM CDT [facility] AST 25 5 - 34 U/L 05/04/2022 10:10 AM T [facility] Protein Total 7.5 6.4 - 8.3 gm/dL 05/04/2022 10:10 AM T [facility] Albumin 4.4 3.5 - 5.2 gm/dL 05/04/2022 10:10 AM [facility] Bilirubin Total 0.7 0.2 - 1.2 mg/dL 05/04/2022 10:10 AM [facility] eGFR by CKD-EPI >90 >=90 mL/min/1.7 3 m2 05/04/2022 10:10 AM [facility] Blood BLOOD SPECIMEN / Unknown Venipuncture / Unknown 05/04/2022 9:45 AM CDT 05/04/2022 9:49 AM T us Disha Mojica PA-C LAB - CHEMISTRY ORDERABL ES Final Result [facility] [address] [place] [place] [address] from Last 3 Months or Most Recently Relevant to Health Maintenance Insurance [facility] SELF PAY NO INSURANCE Member Subscriber Plan / Payer (Ef fective for All Dates) Name:Williams Powers Member ID:Not on file Relation to Subscriber:Not on file Name:WILLIAMS POWERS Subscriber ID:Not on file (Home) Address: [address] [place] [address] Payer ID:Not on file Group ID:Not on file Type:Self Pay Address: [facility] * Guarantor: WILLIAMS POWERS Type Relation to Patient Date of Phone Billing Address Personal/Family 1980 [address] [place] [address] ANTH Care Teams Caustic Plant Worker Relationship Specialty Start Date End Date Haris Hoffman DO PCP - General 05/23/19
--- OUTSIDE RECORDS SUMMARY | 2024-11-24 10:32 | XMS_ITS | Data Portability ---
Author Organization [place] [facility] , [facility] Address [address] [place] [address] Assessment Encounter Date Assessment Date Assessment LastModified [...] 40 mg tablet,del ayed release 2023 024 [facility]armacy #[id number], [address], [place], [address], 18:51:55 Patient TargetsNo targets recorded. Patient Instructions Encounter Date Encounter Id Patient Instructions Last Modified By Organization Details Last Modified Time 05/26/2024 [id number] gastroesophageal reflux disease (GERD): care instructions Not [...] enidate ER 15 mg capsule,ext ended release [id number]- 50 TAKE 1 CAPSULE BY MOUTH EVERY [...] SNOMED-CT Code Diagnosis ICD10 Code Diagnosis Note [id number] SHILOH May [facility] [address] [place] [address] 05/26/2024 18:25:00 05/27/2024 00:42:22 Gastroesophageal reflux disease 296526065 K21.9 Health Concerns Section Related Observation LastModified by Organization Detai ls LastModified Time None Recorded Concern Status LastModified by Organization Details LastModified Time None Recorded Advance Directives Directive None Recorded Payers Insurance Date Sequence Insurance Name Policy Number Policy Zambrano Covered Member ID Zambrano Member ID Guarantor Name 05/31/2024 2 UHC MEDICARE [id number] David Rider [id number] David Rider 05/26/2024 1 [facility] [id number] David Rider [id number] David Rider 05/26/2024 3 *SELF PAY* [id number] David Rider [id number] David Rider 05/26/2024 [employer] [id number] David Tereso [id number] David Rider 05/26/2024 1 *SELF PAY* Elizabeth Rider Notes Date Note Type Note Provider [...] following state at the time of visit: [place]. The patient consents to the use of [employer] scribe technology. Previous visits and labs reviewed, if available.Patient at time of visit located in: [place] HPI: pt reports he has been having [...] new medications:- Hoarseness:+ Dental concerns:- Additional symptoms:- SHILOH May [address] [place] [address], [address], [facility] 05/26/2024 18:55:05
[2024-11-24 12:55] LABS: Lithium < 0.2 mmol/L (0.6-1.2)
== END 2024-11-24 10:24 | disposition home or self-care (01) ==
LOC: ANHSURGERY 10:27
PROVIDERS: Anesthesiology; PCP Student in an Organized Health Care Education/Training Program; Visit Provider Surgery
DX: F31.9 Bipolar disorder, unspecified (principal); K44.9 Diaphragmatic hernia without obstruction or gangrene
CPT/HCPCS: 36415; 80178; 86850; 86900; 86901

== ENCOUNTER 2024-11-27 10:47 | Observation (INO) | payer OTHER, SELFPAY ==
[2024-11-20 08:53] VITALS: BMI 34.1
--- NOTE | 2024-11-20 09:05 | PC.NURSE ---
Report to the Outpatient Waiting Room, entrance under the green pavilion located off [facility], at time _0730_ on date _05-21-8090_. Planned Procedure Time: _0930_. Time changes happen often and if your time is changed the preop area will call you the afternoon before. - You and your visitor will be asked to self-screen and do not enter if you have any COVID symptoms. Please call surgeon if you need to reschedule. - A mask is optional within the hospital at this time. Clear liquid supper night before surgery. Patients may have clear liquids (water, carbonated beverages, clear teas, apple juice) until 3 hours prior to surgery with a maximum of 20 ounces. - No food from after lunch the day before surgery until time of surgery and no smoking, or chewing tobacco (or any form of nicotine). No chewing gum, candy or mints. Take only the following medications with a SIP of water on the morning of surgery: __Lithium, Venlafaxine, Propanolol and Welbutrin___ DO NOT STOP ANY OF YOUR OTHER PRESCRIPTION MEDICATIONS PRIOR TO SURGERY EXCEPT THE FOLLOWING Hold all vitamins and supplements for 3 days per anesthesiologist. Medications to discontinue per physician Date to take last dose Please no make-up, nail faroese, hairspray, perfume, deodorant, or body powder the day of surgery. No jewelry (including any body piercings) or valuables the day of surgery, leave them at home. Please take a shower or bath the night before, or the morning of, surgery with an antibacterial soap. Wear comfortable, loose fitting clothing. - Jewelry must be removed prior to entering the operating room. Rings and piercings that are not removed may be cut off. - The hospital will not accept responsibility for valuables. - Please leave all valuables, including medications, at home the day of surgery. If you are going home after surgery, a licensed escort vehicle driver must drive you home. - NO public transportation without another adult if you receive anesthesia. - We recommend that an adult stay with you for 24 hours following discharge. - We also recommend that you do not drive, make important decision, drink alcoholic beverages, or take any drugs that were not prescribed by your health care provider for at least 24 hours after your discharge time. Follow any additional instructions given to you from your surgeon. Telephone instructions given to _John___and asked if any additional questions and then verbalized understanding. Patient advised to call surgeon office or pre surgery nurse liaison [phone] if any additional questions.
[2024-11-26] VITALS (13 sets, daily range): BP systolic 126–159; BP diastolic 77–108; PULSE 62–85; RESP 14–23; TEMP 36.1–36.9; O2SAT 90–98; BMI 35.6
--- OUTSIDE RECORDS SUMMARY | 2024-11-26 00:28 | XMS_ITS | Clinical Summary ---
Author Organization [facility] Address [address] [place] [address] Care Team Providers Care Gas Fitter Apprentice Name Role Phone Gurdeepabelardokenishajesus albertoHaris Vicente HIDALGO [...] Scanned, [facility] Procedure (SCAN) 10/06/2024 [employer] Message Enc [facility] Medical [facility] Multispecialty Care - [address], [address] [place] [address] Georgina, [facility] Provider Time 10/06/[address] [facility] Multispecialty Care - [facility] [address] [place] [address] Mary Dumont NP Appointment Reminder 10/02/2024 Scan [facility] Scanned, [facility] Image (SCAN) 09/30/2024 Scan [facility] Scanned, [facility] Ultrasound (SCAN) 09/25/[address] 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 Legal Sex Male 7:17 PM CDT Gender Identity Male 07/30/2024 9:03 AM MORTGAGE UNDERWRITER Sexual Orientation Not on file Occupation Industry Job Start Date Job End Date Not on file Not on file Not on file Not on file Last Filed Vital Signs Vital Sign Reading Time Taken Comments Blood Pressure 126/82 08/15/2024 9:50 AM MORTGAGE UNDERWRITER Pulse 72 08/15/2024 9:50 AM MORTGAGE UNDERWRITER Temperature 36.9 C (98.4 F) 08/15/2024 9:50 AM MORTGAGE UNDERWRITER Respiratory Rate 20 08/15/2024 9:50 AM MORTGAGE UNDERWRITER Oxygen Saturation 97% 08/15/2024 9:50 AM MORTGAGE UNDERWRITER Inhaled Oxygen Concentration - - Weight 129.7 kg (285 lb 14.4 oz) 08/15/2024 9:50 AM MORTGAGE UNDERWRITER Height 188 cm (6' 2 ) 08/15/2024 9:50 AM MORTGAGE UNDERWRITER Body Mass Index 36.71 08/15/2024 9:50 AM MORTGAGE UNDERWRITER Plan of Treatment Health Maintenance Due Date Last Done Comments Hepatitis B Vaccines (1 of 3 - 19+ 3-dose series) 1997 Annual Physical 05/09/2020 05/09/2019 Colorectal Cancer Screening Colonoscopy (10 Years) 10/18/2028 10/18/2018 DTaP, Tdap and Td Vaccines (2 - Td or Tdap) 09/02/2030 09/02/2020 Hepatitis C Completed 11/21/2021 COVID-19 Vaccine Completed 07/30/2024, , 10/31/2020, Additional history exists PHQ-2 (Physician S[place]) Completed 07/30/2024 Meningococcal B Vaccine Aged Out [...] * PROCEDURE GENERIC (SCAN ORDER) (10/17/2024) 10/17/2024 [facility] Scanned SCANNING Final Resu lt * IMAGE GENERIC (10/02/2024) Anatomical Region Laterality Modality Other 10/02/2024 [email or web address] [facility] Scanned SCANNING Final Resu lt * ULTRASOUND GENERIC (SCAN ORDER) (09/30/2024) Anatomical Region Laterality Modality Other 09/30/2024 [email or web address] [facility] Scanned SCANNING Final Resu lt * HEPATITIS C ANTIBODY (11/21/2021 7:56 AM CDT) HEPATITIS C AB NON-REACTI VE NON-REACT [place] 11/21/2021 6:32 PM CDT [facility] Comment: ANTIBODIES TO HCV NOT DETECTED. DOES NOT EXCLUDE THE POSSIBILITY OF EXPOSURE TO HCV. 11/21/2021 7:56 AM CDT Haris Hoffman DO LABORATORY Final Re sult [facility] [address] [place] [address], [phone] * COLONOSCOPY GENERIC (SCAN ORDER) (10/18/2018) 10/18/2018 [email or web address] [facility] Scanned SCANNING Final Resu lt from Last 3 Months or Most Recently Relevant to Health Maintenance Insurance [facility] Care Teams Gas Fitter Apprentice Relationship Specialty Start Date End Date Haris Hoffman DO [address] [place] [id number] PCP - General FAMILY PRACTICE 05/09/19
--- OUTSIDE RECORDS SUMMARY | 2024-11-26 00:28 | XMS_ITS | Data Portability ---
Author Organization [place] [facility] [employer] , [facility] Address [address] [place] [address] Assessment Encounter Date Assessment Date Assessment LastModified [...] 40 mg tablet,del ayed release 2023 024 [facility]acy #[id number], [address], [place], [address], 18:51:55 Patient TargetsNo targets recorded. Patient Instructions Encounter Date Encounter Id Patient Instructions Last Modified By Organization Details Last Modified Time 05/26/2024 [id number] gastroesophageal reflux disease (GERD): care instructions Not [...] enidate ER 15 mg capsule,ext ended release [id number]- 50 TAKE 1 CAPSULE BY MOUTH EVERY [...] SNOMED-CT Code Diagnosis ICD10 Code Diagnosis Note [id number] SHILOH May [facility] [address] [place] [address] 05/26/2024 18:25:00 05/27/2024 00:42:22 Gastroesophageal reflux disease [id number] K21.9 Health Concerns Section Related Observation LastModified by Organization Detai ls LastModified Time None Recorded Concern Status LastModified by Organization Details LastModified Time None Recorded Advance Directives Directive None Recorded Payers Insurance Date Sequence Insurance Name Policy Number Policy Zambrano Covered Member ID Zambrano Member ID Guarantor Name 05/31/2024 2 UHC MEDICARE UC [id number] David Rider [id number] David Rider 05/26/2024 1 [facility] [id number] David Rider [id number] David Rider 05/26/2024 3 *SELF PAY* [id number] David Rider [id number] David Rider 05/26/2024 [employer] [id number] David Tereso [id number] David Rider 05/26/2024 1 *SELF PAY* Elizabeth [...] following state at the time of visit: [place]. The patient consents to the use of [employer] scribe technology. Previous visits and labs reviewed, if available.Patient at time of visit located in: [place] HPI: pt reports he has been having [...] Hoarseness:+ Dental concerns:- Additional symptoms:- SHILOH May [address] [place] [address], [address], [facility] 05/26/2024 18:55:05
--- OUTSIDE RECORDS SUMMARY | 2024-11-26 00:28 | XMS_ITS | Encounter Summary ---
Author Organization [facility] Address [address] [place] [address] Care Team Providers Care Puppet Master Name Role Phone Haris Hoffman DO Primary Care Provider + Encounter Details Date Type Department Care Team (Late st Contact Info) Description 10/06/2024 [employer] Message Enc [facility] Medical Group Multispecialty Care - [facility] [address], [address] [place] [address] [employer], [facility] Provider Time Social History [...] Sex Assigned at Male 07/30/2024 9: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
--- OUTSIDE RECORDS SUMMARY | 2024-11-26 00:29 | XMS_ITS | Patient Health Record ---
Author Organization [facility] Address [address] [place] [address] Care Team Providers Care Napping Machine Operator Name Role Phone Boni Romero Primary Care Provider Manuelito Larson [phone] Allergies No Known Allergies Results Component Value Reference Range Notes [place]ota (Eskalith(R)), Serum Reviewed date:04/17/2024 09:59:04 AM Interpretation: Performing Lab:[facility] [place], [address] [facility], [place], Phone - [phone], Director - Edison Notes/Report: [place] (Eskalith(R)), Serum 0.8 0.5-1.2 mmol /L A [...] a day for 30 days 09/27/2023 Active [place] Carbonate 600 MG 1 capsule Orall y [...] brother Emotional: Mother- always , teacher. Sexual: sound person , friends of mother Job: [employer] in [place]. Works evenings. : none Legal: Has a [...] brother Emotional: Mother- always , teacher. Sexual: sound person , friends of mother Legal: Has a [...] brother Emotional: Mother- always , teacher. Sexual: sound person , friends of mother Job: [employer] in [place]. Works evenings. : none Legal: Has a [...] brother Emotional: Mother- always , teacher. Sexual: sound person , friends of mother Legal: Has a [...] brother Emotional: Mother- always , teacher. Sexual: sound person , friends of mother Job: [employer] in [place]. Works evenings. : none Social: parents shortly [...] brother Emotional: Mother- always , teacher. Sexual: sound person , friends of mother Job: [employer] in [place]. Works evenings. : none Social: parents shortly [...] brother Emotional: Mother- always , teacher. Sexual: sound person , friends of mother Job: [employer] in [place]. Works evenings. : none Social: parents shortly [...] brother Emotional: Mother- always , teacher. Sexual: sound person , friends of mother Job: [employer] in [place]. Works evenings. : none Social: parents shortly [...] brother Emotional: Mother- always , teacher. Sexual: sound person , friends of mother Job: [employer] in [place]. Works evenings. : none Social: parents shortly [...] brother Emotional: Mother- always , teacher. Sexual: sound person , friends of mother Job: [employer] in [place]. Works evenings. : none Social: parents shortly [...] brother Emotional: Mother- always , teacher. Sexual: sound person , friends of mother Job: [employer] in [place]. Works evenings. : none Social: parents shortly [...] brother Emotional: Mother- always , teacher. Sexual: sound person , friends of mother Job: [employer] in [place]. Works evenings. : none Social: parents shortly [...] brother Emotional: Mother- always , teacher. Sexual: sound person , friends of mother Job: [employer] in [place]. Works evenings. : none Social: parents shortly [...] brother Emotional: Mother- always , teacher. Sexual: sound person , friends of mother Job: [employer] in [place]. Works evenings. : none Legal: Has a [...] brother Emotional: Mother- always , teacher. Sexual: sound person , friends of mother Legal: Has a [...] brother Emotional: Mother- always , teacher. Sexual: sound person , friends of mother Job: [employer] in [place]. Works evenings. : none Social: parents shortly [...] brother Emotional: Mother- always , teacher. Sexual: sound person , friends of mother Job: [employer] in [place]. Works evenings. : none Social: parents shortly [...] brother Emotional: Mother- always , teacher. Sexual: sound person , friends of mother Job: [employer] in [place]. Works evenings. : none Social: parents shortly [...] brother Emotional: Mother- always , teacher. Sexual: sound person , friends of mother Job: [employer] in [place]. Works evenings. : none Social: parents shortly [...] brother Emotional: Mother- always , teacher. Sexual: sound person , friends of mother Job: [employer] in [place]. Works evenings. : none Social: parents shortly [...] brother Emotional: Mother- always , teacher. Sexual: sound person , friends of mother Job: [employer] in [place]. Works evenings. : none Social: parents shortly [...] brother Emotional: Mother- always , teacher. Sexual: sound person , friends of mother Job: [employer] in [place]. Works evenings. : none Social: parents shortly [...] brother Emotional: Mother- always , teacher. Sexual: sound person , friends of mother Job: [employer] in [place]. Works evenings. : none Social: parents shortly [...] brother Emotional: Mother- always , teacher. Sexual: sound person , friends of mother Job: [employer] in [place]. Works evenings. : none Social: parents shortly [...] brother Emotional: Mother- always , teacher. Sexual: sound person , friends of mother Job: [employer] in [place]. Works evenings. : none Social: parents shortly [...] brother Emotional: Mother- always , teacher. Sexual: sound person , friends of mother Job: [employer] in [place]. Works evenings. : none Social: parents shortly [...] brother Emotional: Mother- always , teacher. Sexual: sound person , friends of mother Job: [employer] in [place]. Works evenings. : none Social: parents shortly [...] brother Emotional: Mother- always , teacher. Sexual: sound person , friends of mother Job: [employer] in [place]. Works evenings. : none Social: parents shortly [...] brother Emotional: Mother- always , teacher. Sexual: sound person , friends of mother Job: [employer] in [place]. Works evenings. : none Social: parents shortly [...] brother Emotional: Mother- always , teacher. Sexual: sound person , friends of mother Job: [employer] in [place]. Works evenings. : none Social: parents shortly [...] brother Emotional: Mother- always , teacher. Sexual: sound person , friends of mother Job: [employer] in [place]. Works evenings. : none Social: parents shortly [...] brother Emotional: Mother- always , teacher. Sexual: sound person , friends of mother Job: [employer] in [place]. Works evenings. : none Social: parents shortly [...] brother Emotional: Mother- always , teacher. Sexual: sound person , friends of mother Job: [employer] in [employer]. Works evenings. : none Social: parents shortly [...] brother Emotional: Mother- always , teacher. Sexual: sound person , friends of mother Job: [employer] in [place]. Works evenings. : none Social: parents shortly [...] brother Emotional: Mother- always , teacher. Sexual: sound person , friends of mother Job: [employer] in [place]. Works evenings. : none Social: parents shortly [...] brother Emotional: Mother- always , teacher. Sexual: sound person , friends of mother Job: [employer] in [place]. Works evenings. : none Social: parents shortly [...] brother Emotional: Mother- always , teacher. Sexual: sound person , friends of mother Job: [employer] in [place]. Works evenings. : none Social: parents shortly [...] brother Emotional: Mother- always , teacher. Sexual: sound person , friends of mother Job: [employer] in [place]. Works evenings. : none Social: parents shortly [...] brother Emotional: Mother- always , teacher. Sexual: sound person , friends of mother Job: [employer] in [place]. Works evenings. : none Social: parents shortly [...] brother Emotional: Mother- always , teacher. Sexual: sound person , friends of mother Job: [employer] in [place]. Works evenings. : none Social: parents shortly [...] brother Emotional: Mother- always , teacher. Sexual: sound person , friends of mother Job: [employer] in [place]. Works evenings. : none Social: parents shortly [...] brother Emotional: Mother- always , teacher. Sexual: sound person , friends of mother Job: [employer] in [place]. Works evenings. : none Social: parents shortly [...] brother Emotional: Mother- always , teacher. Sexual: sound person , friends of mother Job: [employer] in [place]. Works evenings. : none Social: parents shortly [...] brother Emotional: Mother- always , teacher. Sexual: sound person , friends of mother Job: [employer] in [place]. Works evenings. : none Social: parents shortly [...] brother Emotional: Mother- always , teacher. Sexual: sound person , friends of mother Job: [employer] in [place]. Works evenings. : none Social: parents shortly [...] brother Emotional: Mother- always , teacher. Sexual: sound person , friends of mother Job: [employer] in [place]. Works evenings. : none Social: parents shortly [...] brother Emotional: Mother- always , teacher. Sexual: sound person , friends of mother Job: [employer] in [place]. Works evenings. : none Social: parents shortly [...] brother Emotional: Mother- always , teacher. Sexual: sound person , friends of mother Job: [employer] in [place]. Works evenings. : none Social: parents shortly [...] brother Emotional: Mother- always , teacher. Sexual: sound person , friends of mother Job: [employer] in [place]. Works evenings. : none Social: parents shortly [...] brother Emotional: Mother- always , teacher. Sexual: sound person , friends of mother Job: [employer] in [place]. Works evenings. : none Social: parents shortly [...] brother Emotional: Mother- always , teacher. Sexual: sound person , friends of mother Job: [employer] in [place]. Works evenings. : none Social: parents shortly [...] or hard liqueur). Has a loss of cont [id number]|2024-11-26 13:37:10|2024-11-26 13:37:10|ADMGEN||||"This patient, David Rider, was admitted to [facility] Surg Room 305-01. Patient/family oriented to hospital policies and general routines including ID bracelet, bed and alarms, visiting hours, pain management, procedures, bathroom and other care routines, personal items, smoking policy, room service/diet, and visiting hours. Information on how to activate the Rapid Response Team has been discussed. Patient/Family are encouraged to report perceived risks to care and to ask questions if they do not understand what they are told or what they should do. "
--- OUTSIDE RECORDS SUMMARY | 2024-11-26 00:29 | XMS_ITS | Clinical Summary ---
Author Organization [facility] [address] Address [address] [facility] [place] [address] Care Team Providers Care Smoking Pipe Repairer Name Role Phone Haris Hoffman DO Primary Care Provider + Source Comments [facility] [address],non-owned Affiliates and Associated Physician Practices is amultiple site organization consisting of ambulatory clinics and hospital sitesin [place], [place], [place] and [place]. This disclosure is being madepursuant to the Care Everywhere program and may not contain all information available regarding this patient. Last updated 18.[facility] [address] Allergies No known active allergies Medications * This document contains information received from the source organization and may not represent a complete record from that organization. * Be aware that medications may not be up to date on this document. Alwaysverify current medications with the patient. 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 Gender Identity Not on file Sexual Orientation [...] COMPREHENSIVE METABOLIC PANEL (05/04/2022 9:45 AM CDT) [facility] Glucose 97 70 - 105 mg/dL 05/04/2022 10:10 AM CDT [facility] Sodium 138 136 - 145 mmol/L 05/04/2022 10:10 AM CDT [facility] Potassium 4.1 3.5 - 5.1 mmol/L 05/04/2022 10:10 AM CDT [facility] Chloride 106 98 - 107 mmol/L 05/04/2022 10:10 AM CDT [facility] CO2 20(L) 23 - 31 mmol/L 05/04/2022 10:10 AM CDT [facility] Calcium 9.6 8.4 - 10.4 mg/dL 05/04/2022 10:10 AM T [facility] Anion Gap 12 8 - 18 mmol/L 05/04/2022 10:10 AM CDT [facility] BUN 9 8.9 - 20.6 mg/dL 05/04/2022 10:10 AM T [facility] Creatinine 0.88 0.72 - 1.25 mg/dL 05/04/2022 10:10 AM [facility] Alkaline Phosphatase 88 40 - 150 U/L 05/04/2022 10:10 AM CDT [facility] ALT 46 0 - 61 U/L 05/04/2022 10:10 AM CDT [facility] AST 25 5 - 34 U/L 05/04/2022 10:10 AM T [facility] Protein Total 7.5 6.4 - 8.3 gm/dL 05/04/2022 10:10 AM T [facility] Albumin 4.4 3.5 - 5.2 gm/dL 05/04/2022 10:10 AM [facility] Bilirubin Total 0.7 0.2 - 1.2 mg/dL 05/04/2022 10:10 AM [facility] eGFR by CKD-EPI >90 >=90 mL/min/1.7 3 m2 05/04/2022 10:10 AM [facility] Blood BLOOD SPECIMEN / Unknown Venipuncture / Unknown 05/04/2022 9:45 AM CDT 05/04/2022 9:49 AM T us Disha Mojica PA-C LAB - CHEMISTRY ORDERABL ES Final Result [facility] [address] [facility] [place] [address] from Last 3 Months or Most Recently Relevant to Health Maintenance Insurance [facility] SELF PAY NO INSURANCE Member Subscriber Plan / Payer (Ef fective for All Dates) Name:Williams Powers Member ID:Not on file Relation to Subscriber:Not on file Name:WILLIAMS POWERS Subscriber ID:Not on file (Home) Address: [address] [place] [address] Payer ID:Not on file Group ID:Not on file Type:Self Pay Address: [facility] * Guarantor: WILLIAMS POWERS Type Relation to Patient Date of Phone Billing Address Personal/Family 1980 [address] [place] [address] ANTH Care Teams Smoking Pipe Repairer Relationship Specialty Start Date End Date Haris Hoffman DO PCP - General 05/23/19
[2024-11-26] MEDS: LACTATED RINGERS 1,000 ML 30 ML IV CONT ×2 (07:55→12:25)
[2024-11-26] MEDS: ACETAMINOPHEN 500 MG TABLET 1000 MG PO (08:00)
[2024-11-26] MEDS: KETOROLAC 15 MG/ML VIAL (*BKC) IV PUSH (08:01)
--- NOTE | 2024-11-26 08:21 | WPDANESEPPF ---
Anes - Initial Pre Proc Eval Procedure: Operation Date: 11/26/24 09:30 Proposed Procedures p Laparoscopic Paraesophageal Hiatal Hernia Repair with Fundoplication, Davinci Assisted - Wes Edward DO Date/Time: 11/26/24 08:21 Surgeon: Wes Edward DO Pre Op Diagnosis: hiatal hernia, GERD Patient Data Age: 44 Gender: M Height: 1.88 m Weight: 125.9 kg Allergies Allergy/AdvReac Type Severity Reaction Status Date / Time No Known Allergies Allergy Verified 11/26/24 08:23 Home Medications Medication Instructions Recorded Confirmed Type bupropion HCl 300 mg 24 hr tablet, 300 mg PO DAILY 08/25/24 11/20/24 History extended release cariprazine 3 mg capsule (Vraylar) 3 mg PO DAILY 08/25/24 11/20/24 History dexmethylphenidate 15 mg 15 mg PO DAILY 08/25/24 11/20/24 History capsule,extended release [id number] eszopiclone 1 mg tablet 1 mg PO HS 08/25/24 11/20/24 History omeprazole 40 mg capsule,delayed 40 mg PO BID 08/25/24 11/20/24 History release propranolol 120 mg capsule,24 120 mg PO Q24H 08/25/24 11/20/24 History hr,extended release quetiapine 50 mg tablet 50 mg PO HS 08/25/24 11/20/24 History venlafaxine 75 mg capsule,extended 75 mg PO DAILY 08/25/24 11/20/24 History release 24 hr metoclopramide HCl 5 mg tablet 5 mg PO .before dinner #30 tabs 09/03/24 11/20/24 Rx (Reglan) lithium carbonate 600 mg capsule 600 mg PO BID 11/20/24 11/20/24 History Patient hx anesthesia problems: none Family hx anesthesia problems: none Results Review: All pre-operative results and documents have been reviewed as part of the pre-operative evaluation. [facility] Past Medical History Medical History Alcohol abuse quit 4 years ago Faisal lesion, acute GERD (gastroesophageal reflux disease) Leukocytosis Coffee ground emesis Anxiety Hepatic steatosis on CT scan in 08/2024 Hiatal hernia moderate-sized sliding hiatal hernia Bipolar disorder Surgical History Surgical History History of lumbar fusion Family History Family History Father Alcoholism Mother Diabetes mellitus Hypertension Depression Social History Social History (Updated 11/26/24 @ 08:28 by Rodolfo Carlisle MD) Social History: Surrogate medical decision maker: Jacque Rider, spouse. Code status: Full code. Smoking status: Never smoker Alcohol intake: former Substance use: never Do You Feel Safe in your Home?: Yes Lack of Transportation: YES Lack of Food: Never True Current Housing: I Have Housing Concerned About Future Housing: No Difficulty Paying Gas/Electric Bills: No Difficulty Paying for Meds: No Currently Unemployed: No Education: Trade/Vocational Certificate Difficulty w/ Childcare or Family Care: No Living arrangements: with family Additional living arrangements comments: Lives with and 4 children. 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 Spiritual care concerns: No Anes - Eval Final PreProcedure Day of Procedure 11/26/24 08:21 Patient weight: obese Heart: regular rate and rhythm Lungs: clear to auscultation Airway: Mallampati scale class II Neurological: alert and oriented Last oral intake: >/= 8 hours ASA classification: III Emergent: no Anesthetic plan: proceed Anesthesia type and monitoring: general ETT and standard monitoring Results Review: All pre-operative results and documents have been reviewed as part of the pre-operative evaluation. Informed Consent: The patient's anesthetic plan and its attendant risks and benefits were discussed with the patient/family/POA. Questions were solicited and answers provided to the satisfaction of the patient/family/POA.
--- NOTE | 2024-11-26 08:32 | WPDHPUPDATE1 ---
History and Physical Update Update Date/Time: 11/26/24 08:32 History and Physical has been reviewed, including an updated exam of the patient. There are NO changes in the patient's condition. Risks, benefits, and alternatives have been discussed and questions answered. Patient agrees to proceed with procedure.
--- NOTE | 2024-11-26 08:33 | P.HP_ITS ---
H&P: HPI History of Present Illness Date/Time: 11/26/24 08:33 Chief Complaint: Hiatal hernia, GERD Narrative: This is a 44-year-old man who presented with a moderate to large-sized hiatal hernia and significant acid reflux. He has been experiencing frequent nausea and vomiting. He had undergone an EGD for hematemesis and was found to have a Faisal lesion that was the likely source of bleeding. He was treated for this and has had no more hematemesis. Upper GI showed moderate-sized hiatal hernia with reflux. This also showed normal esophageal motility. Gallbladder ultrasound was normal and gastric emptying scan was normal. He now presents for repair of the hiatal hernia with fundoplication. Review of Systems Review of Systems: All systems reviewed & are unremarkable except as noted in HPI and below Constitutional: Constitutional: Denies chills, Denies fever(s), Denies headache(s) and Denies weight loss Eyes: Eyes: Denies change in vision ENT: Denies dizziness, Denies headache(s), Denies neck mass and Denies throat swelling Cardiovascular: Cardiovascular: Denies chest pain, Denies lightheadedness and Denies dyspnea Respiratory: Respiratory: Denies cough, Denies dyspnea and Denies wheezing Gastrointestinal: Gastrointestinal: Denies abdominal pain, Denies change in bowel habits, Denies nausea and Denies vomiting Genitourinary: Genitourinary: Denies hematuria and Denies dysuria Musculoskeletal: Musculoskeletal: Reports as per HPI Integumentary/Breasts: Skin/Breast: Reports as per HPI Neurologic: Denies dizziness and Denies headache(s) Allergic/Immunologic: Allergic/Immunologic: Denies throat swelling and Denies wheezing FOR[facility]LY [facility] Past Medical History Medical History (Updated 11/26/24 @ 08:29 by Rodolfo Carlisle MD) Alcohol abuse quit 4 years ago Faisal lesion, acute GERD (gastroesophageal reflux disease) Leukocytosis Coffee ground emesis Anxiety Hepatic steatosis on CT scan in 08/2024 Hiatal hernia moderate-sized sliding hiatal hernia Bipolar disorder Surgical History Surgical History History of lumbar fusion Family History Family History Father Alcoholism Mother Diabetes mellitus Hypertension Depression Social History Social History (Updated 11/26/24 @ 08:28 by Rodolfo Carlisle MD) Social History: Surrogate medical decision maker: Jacque Rider, spouse. Code status: Full code. Smoking status: Never smoker Alcohol intake: former Substance use: never Do You Feel Safe in your Home?: Yes Lack of Transportation: YES Lack of Food: Never True Current Housing: I Have Housing Concerned About Future Housing: No Difficulty Paying Gas/Electric Bills: No Difficulty Paying for Meds: No Currently Unemployed: No Education: Trade/Vocational Certificate Difficulty w/ Childcare or Family Care: No Living arrangements: with family Additional living arrangements comments: Lives with and 4 children. 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 Spiritual care concerns: No Meds Home Medications and Allergies Home Medications Medication Instructions Recorded Confirmed Type bupropion HCl 300 mg 24 hr tablet, 300 mg PO DAILY 08/25/24 11/26/24 History extended release cariprazine 3 mg capsule (Vraylar) 3 mg PO DAILY 08/25/24 11/26/24 History dexmethylphenidate 15 mg 15 mg PO DAILY 08/25/24 11/26/24 History capsule,extended release [id number] eszopiclone 1 mg tablet 1 mg PO HS 08/25/24 11/26/24 History omeprazole 40 mg capsule,delayed 40 mg PO BID 08/25/24 11/26/24 History release propranolol 120 mg capsule,24 120 mg PO Q24H 08/25/24 11/26/24 History hr,extended release quetiapine 50 mg tablet 50 mg PO HS 08/25/24 11/26/24 History venlafaxine 75 mg capsule,extended 75 mg PO DAILY 08/25/24 11/26/24 History release 24 hr metoclopramide HCl 5 mg tablet 5 mg PO .before dinner #30 tabs 09/03/24 11/26/24 Rx (Reglan) lithium carbonate 600 mg capsule 600 mg PO BID 11/20/24 11/26/24 History Allergies Allergy/AdvReac Type Severity Reaction Status Date / Time No Known Allergies Allergy Verified 11/26/24 08:23 Vital Signs Vital Signs - 24 hr 11/26/24 08:27 Temperature 98.4 F Pulse Rate 66 Respiratory Rate 18 Blood Pressure 133/83 Pulse Oximetry 95 Oxygen Delivery Room Air Exam Const: General: no acute distress and alert Orientation/consciousness: patient oriented x3 HENMT: Head: normocephalic and atraumatic Ears: hearing grossly normal bilaterally Face/Nose/Sinus: Normal nares present Mouth: Yes Normal oral and palatal mucosa present Eyes: Periorbital: periorbital findings normal Sclera: sclerae normal EOM: EOMs intact bilaterally Neck: Neck: normal visual inspection, no lymphadenopathy and trachea midline Chest: Chest palpation & inspection: normal inspection of the chest Resp: Effort & Inspection: normal respiratory effort Auscultation: clear to auscultation bilaterally Cardio: Jugular venous distension: no JVD Rate: regular rate Rhythm: regular rhythm Heart sounds: S1 normal heart sound present and S2 normal heart sound present Peripheral pulses: Peripheral pulses 2+ throughout GI: Inspection: normal to inspection GI Palp: Yes Soft to palpation, No Tenderness to palpation present (GI), No Guarding due to palpation present (GI) and No Rebound tenderness present Percussion: Yes normal to percussion Auscultation: normal bowel sounds : General: Yes no CVA tenderness Back/Spine/Pelvis: Back: no CVA tenderness Neuro: General: patient oriented x3, no focal motor deficits and CN's II-XI intact bilaterally Cognition (Neuro): normal cognition Speech: normal speech Motor exam (neuro): 5/5 motor strength present throughout Extrem: General: capillary refill normal and no clubbing, cyanosis or edema Assessment and Plan Assessment and plan (1) Hiatal hernia: Code(s): K44.9 - Diaphragmatic hernia without obstruction or gangrene Status: Acute Assessment and Plan: I have recommended laparoscopic paraesophageal hiatal hernia repair with fundoplication, da Bindu assisted. I have discussed the procedure, risks, benefits, and alternatives with the patient. All questions answered. No changes since last seen in office. (2) GERD (gastroesophageal reflux disease): Qualifiers: Esophagitis presence: without esophagitis Qualified Code(s): K21.9 - Gastro-esophageal reflux disease without esophagitis Code(s): K21.9 - Gastro-esophageal reflux disease without esophagitis Status: Acute
[2024-11-26] MEDS: ceFAZolin 3 GM/D5W 100 ML 100 ML IVPB (09:00)
[2024-11-26] MEDS: BUPIVACAINE/EPINEPHRINE 0.5% 30 ML VIAL INFILTRATE (09:37)
--- NOTE | 2024-11-26 11:33 | P.OP_ITS ---
Procedure Note - Detailed Date of Procedure 11/26/24 Pre-op Diagnosis hiatal hernia, GERD Post-op Diagnosis Same (Type 3 paraesophageal hiatal hernia) Procedure Performed Robotic assisted laparoscopic paraesophageal hernia repair with 270 degree fundoplication Surgeon Wes Edward, DO Anesthesia General and Local (0.5% bupivicaine with epi) Indications This is a 44-year-old man who presented with a large hiatal hernia and frequent nausea and vomiting. He has a prior history of hematemesis and a Faisal lesion was identified on EGD. He then had an upper GI which showed evidence of the moderate-sized hiatal hernia with reflux. He continued to have frequent symptoms despite treatment with PPIs and Reglan. Discussions were made with the patient about treatment options and decision was made to proceed with robotic assisted laparoscopic hiatal hernia repair with fundoplication. Findings Robotic assisted laparoscopic paraesophageal hiatal hernia repair with 270 degree toupee fundoplication was performed. The patient was found to have a type 3 hiatal hernia with the GE junction about 6 cm above the hiatus and a portion of the fundus of the stomach protruding up to the hiatal hernia. The hernia sac was reduced along with the fundus of the stomach. I then dissected far enough into the mediastinum to allow for enough esophageal length to come down into the cavity. I was able to be easily mobilize about 3-4 cm of esophagus into the cavity. The hiatal hernia was repaired using 2-0 V lock permanent running suture. A 270 degree posterior fundoplication was performed. No other intra-abdominal abnormalities were noted. Description of Procedure Procedure as well as risks, benefits, and alternatives were discussed with the patient. Written consent was obtained and placed in chart prior to procedure. Patient was brought back to surgical suite. He was placed supine on operating table. Time-out was done to confirm patient and procedure. He was then intubated by the anesthesia department. His abdomen was prepped and draped in sterile fashion using chlorhexidine prep. 0.5% bupivacaine with epinephrine was infiltrated locally around each area for port placement. An 8 mm incision was made in the left upper quadrant 2 cm inferior to the costal margin in the mid clavicular line. A 5 mm Optiview trocar was then advanced through the abdominal layers under direct visualization. Once inside the abdominal cavity, carbon dioxide insufflation was used to create a pneumoperitoneum. The camera was inserted in the abdomen was inspected. No immediate abnormalities were identifi ed. Another 8 mm camera port was placed about 15 cm inferior to the xiphoid just to the left of midline under direct visualization. An 8 mm port was placed in the anterior axillary line on the left upper quadrant at about the same transverse plane as the camera port. An 8 mm port was placed in the right upper quadrant and another 8 mm AirSeal assist port was placed in right lower quadrant just to the right of the umbilicus. A 5 mm incision was made in the subxiphoid region and the Adin liver retractor was inserted through this incision into the abdominal cavity to lift up the left lobe of the liver. This was secured in place to the bed of the table. The patient was then placed in 30° reverse Trendelenburg. The robotic arms were secured to the ports and the robotic camera and instruments were inserted. A force bipolar grasper was placed in the right upper quadrant port. The vessel sealer was placed in the midclavicular left upper quadrant port and a Cadiere grasper was placed in the anterior axillary line left upper quadrant port. I then moved over to the robotic console took control of the camera and instruments. A careful thorough exam was performed throughout the abdomen. The stomach was then reduced from within the hiatal hernia. The gastrohepatic ligament was taken down medially using the vessel sealer to identify the right oscar. Peritoneum along the medial side of the right oscar was then divided using the vessel sealer. This allowed me to enter into the avascular plane and carefully dissect the hernia sac from within the hiatus. I continued the peritoneal incision along the right oscar up to the anterior portion of the diaphragm. I then also dissected this far enough posteriorly to identify the crossing fibers of the left oscar. I identified the anterior vagus nerve branch and carefully dissected this along with the esophagus. The hernia sac was dissected off of the esophagus and the dissection was carried along to the left oscar using the vessel sealer. The peritoneum was dissected off of the left oscar all the way down to posterior to the esophagus. I was then able to reduce the hernia sac completely and then created a window posteriorly behind the distal esophagus. A Sonia drain was then placed around the esophagus to help with retraction. I then continued the dissection up into the hiatus to allow for enough esophageal length. Once adequate dissection was performed, I was able to identify about 3-4 cm of esophageal length within the abdominal cavity at rest. I then inspected the posterior crura and chose to close the crura with a 2 0 V lock permanent running suture. This was run from posterior to anterior to allow for a wide enough opening for the esophagus. The repair was inspected and appeared secure. I then took down the short gastrics along the fundus the stomach using the vessel sealer. I entered into the lesser sac continued this dissection along the greater curvature and fundus. Then passed the fundus posterior to the esophagus and using a shoe shine technique was able to bring the fundus up around the sides of the esophagus. I chose to perform a 270 degree fundoplication. 2 0 Ethibond sutures were placed along the lateral esophagus along the right side initially. Three sutures were placed between the esophageal muscle fibers and fundus of the stomach to allow a fundoplication length of about 2 cm long. I then performed the same 3 sutures along the left side of the esophagus to the left side of the fundus. The fundoplication was then also pexy to the diaphragm along the posterior crura and left and right side of the esophageal hiatus. The partial fundoplication was inspected and appeared secure. No other abnormalities were noted with the esophagus or stomach. [place] drain was removed. One final inspection was made around the abdominal cavity and no other abnormalities were noted. The robotic instruments and arms were then removed. The patient was then flattened out and bed and the Adin liver retractor was then removed. The remaining ports were then removed under direct visualization, and the pneumoperitoneum was released. Skin of the incisions was approximated using 4-0 Monocryl subcuticular sutures. Exofin glue was then applied top. The patient was then awakened from anesthesia, extubated, and transferred to recovery. Estimated Blood Loss 10 Complications No immediate complications Condition Stable Disposition Floor [facility] Billing Surgery - Charge Forward: Surgery Billing
[2024-11-26] MEDS: ONDANSETRON INJ 4 MG/2 ML VIAL IV PUSH (11:45)
[2024-11-26] MEDS: fentaNYL CITRATE INJ (*CRX) 100 MCG/2 ML VIAL 25 MCG IV PUSH ×2 (12:15→12:17)
[2024-11-26] MEDS: MORPHINE SULFATE (*CRX) 4 MG/ML INJ IV PUSH ×2 (15:01→21:37)
[2024-11-26] MEDS: LITHIUM CARBONATE 300 MG CAPSULE 600 MG PO (16:29)
[2024-11-26] MEDS: oxyCODONE HCL (*CRX) 5 MG TAB IR PO (20:31)
[2024-11-26] MEDS: QUEtiapine FUMARATE 25 MG TABLET 50 MG PO (20:54)
[2024-11-26] MEDS: MORPHINE SULFATE (*CRX) 2 MG/ML INJ IV PUSH (23:37)
[2024-11-27 02:32] VITALS: BP 123/87; PULSE 78; RESP 18; TEMP 36.5; O2SAT 95
[2024-11-27] MEDS: MORPHINE SULFATE (*CRX) 4 MG/ML INJ IV PUSH (02:49)
[2024-11-27 06:01] VITALS: BP 127/85; PULSE 78; RESP 16; TEMP 36.8; O2SAT 94
[2024-11-27 06:27] LABS: Hematocrit 40.7 % (42.0-52.0); Hemoglobin 13.4 g/dL (14.0-18.0); Mean Corpuscular HGB Conc 32.9 g/dl (32-36); Mean Corpuscular Hemoglobin 30.6 pg (26-34); Mean Corpuscular Volume 92.9 fl (80-100); Mean Platelet Volume 9.2 fl (7.4-10.4); Platelet Count Result 194 k/mm3 (150-375); Red Blood Count 4.38 M/mm3 (4.6-6.20); Red Cell Distribution Width 13.2 % (11.5-14.5); White Blood Count 12.9 K/mm3 (4.5-10.0)
[2024-11-27] MEDS: oxyCODONE HCL (*CRX) 5 MG TAB IR PO (06:33)
[2024-11-27 06:39] LABS: Anion Gap 9 mmol/L (4-12); Blood Urea Nitrogen 10 mg/dL (9-20); Calcium 8.7 mg/dL (8.4-10.2); Carbon Dioxide 27 mmol/L (22-30); Chloride 100 mmol/L (98-107); Estimated CRCL calculation 131 ml/min; Estimated Glomerular Filt Rate > 60; Glucose 121 mg/dL (65-110); Potassium 3.7 mmol/L (3.4-5.0); Sodium 136 mmol/L (137-145)
--- NOTE | 2024-11-27 08:32 | PM.PNGS ---
Progress Note: A&P Assessment and Plan (1) History of repair of hiatal hernia: Code(s): Z98.890 - Other specified postprocedural states; Z87.19 - Personal history of other diseases of the digestive system Status: Acute Assessment and Plan: Doing well. Start full liquids. Up walking today. (2) Hiatal hernia: Code(s): K44.9 - Diaphragmatic hernia without obstruction or gangrene Status: Acute (3) GERD (gastroesophageal reflux disease): Qualifiers: Esophagitis presence: without esophagitis Qualified Code(s): K21.9 - Gastro-esophageal reflux disease without esophagitis Code(s): K21.9 - Gastro-esophageal reflux disease without esophagitis Status: Acute Subjective Subjective Date/Time Seen: 11/27/24 08:32 Post Op day: 1 Patient reports: pain is less, tolerating liquids well and afebrile Exam GI: Inspection: no abdominal wall ecchymosis, non-distended, incision (Healing well) and obesity GI Palp: Yes Soft to palpation, Yes Tenderness to palpation present (GI), No Guarding due to palpation present (GI) and No Palpable mass present Objective Data Vital Signs Vital Signs: Vital Signs - 24 hr 11/26/24 11:28 11/26/24 11:43 11/26/24 11:58 Temperature 36.5 C Pulse Rate 72 72 70 Respiratory Rate 14 23 H 19 Blood Pressure 126/80 149/97 H 159/108 H Pulse Oximetry 95 97 90 Oxygen Delivery Simple Face Mask Simple Face Mask Room Air Oxygen Flow Rate 8 8 11/26/24 12:13 11/26/24 12:28 11/26/24 12:43 Temperature Pulse Rate 62 63 65 Respiratory Rate 15 16 17 Blood Pressure 141/87 H 140/96 H 134/91 H Pulse Oximetry 92 96 96 Oxygen Delivery Nasal Cannula Nasal Cannula Nasal Cannula Oxygen Flow Rate 2 2 2 11/26/24 13:05 11/26/24 13:20 11/26/24 13:50 Temperature 36.4 C 36.4 C 36.3 C L Pulse Rate 66 72 64 Respiratory Rate 16 16 16 Blood Pressure 138/96 H 141/91 H 129/84 Pulse Oximetry 97 96 92 Oxygen Delivery Oxygen Flow Rate 11/26/24 14:50 11/26/24 17:31 11/26/24 18:32 Temperature 36.4 C 36.1 C L Pulse Rate 67 85 Respiratory Rate 14 16 Blood Pressure 126/82 129/77 Pulse Oximetry 97 98 Oxygen Delivery Room Air Oxygen Flow Rate 11/26/24 21:33 11/27/24 01:35 11/27/24 02:32 Temperature 36.4 C L 36.5 C Pulse Rate 74 78 Respiratory Rate 16 18 Blood Pressure 131/86 123/87 Pulse Oximetry 98 95 Oxygen Delivery Room Air Oxygen Flow Rate 11/27/24 06:01 Temperature 36.8 C Pulse Rate 78 Respiratory Rate 16 Blood Pressure 127/85 Pulse Oximetry 94 Oxygen Delivery Oxygen Flow Rate Intake/Output Intake/Output: Intake & Output 11/24/24 11/25/24 11/26/24 11/27/24 23:59 23:59 23:59 23:59 Intake Total 1140 850 Balance 1140 850 Meds/Results Medications: Active Medications Generic Name Dose Route Start Last Admin Trade Name Freq PRN Reason Stop Dose Admin Acetaminophen 500 mg 11/26/24 12:47 Acetaminophen 500 Mg Tablet PO Q6H PRN Pain Rated 1-3 Bupropion HCl 300 mg 11/27/24 09:00 Bupropion Hcl Xl (24 Hr) 150 Mg Tabcr PO DAILY PRACHI Diphenhydramine HCl 25 mg 11/26/24 12:47 Diphenhydramine Hcl Inj 50 Mg/Ml Vial IV PUSH Q6H PRN Itching Enoxaparin Sodium 40 mg 11/27/24 09:00 Enoxaparin 40 Mg/0.4 Ml Syringe SUB-Q DAILY PRACHI Ibuprofen 800 mg in 200 mls @ 400 mls/hr 11/26/24 12:47 Caldolor 800 Mg/200 Ml IVPB Q6H PRN Breakthrough Pain Rated 1-3 or NPO [place] Carbonate 600 mg 11/26/24 17:00 11/26/24 16:29 [place] Carbonate 300 Mg Capsule PO 12/26/24 16:59 600 mg BID PRACHI Administration Miscellaneous Information 0 each 11/26/24 00:01 Cariprazine [Vraylar] 3 Mg Capsule = Non Formulary XX 12/26/24 00:00 CLARIFY PRACHI Miscellaneous Information 0 each 11/26/24 00:01 Dexmethylphenidate 15 Mg Capsule,Er = Non Formulary XX 12/26/24 00:00 CLARIFY [facility] Miscellaneous Information 0 each 11/26/24 00:01 Eszopiclone 1 Mg = Non Formulary XX 12/26/24 00:00 CLARIFY [facility] Morphine Sulfate 2 mg 11/26/24 12:47 11/26/24 23:37 Morphine Sulfate (*Crx) 2 Mg/Ml Inj IV PUSH 2 mg Q2H PRN Administration Breakthrough Pain Rated 4-6 or NPO Morphine Sulfate 4 mg 11/26/24 12:47 11/27/24 02:49 Morphine Sulfate (*Crx) 4 Mg/Ml Inj IV PUSH 4 mg Q2H PRN Administration Breakthrough Pain Rated 7-10 or NPO Naloxone HCl 0.1 mg 11/26/24 12:47 Naloxone Hcl 0.4 Mg/Ml Vial IV PUSH Q2M PRN Opiate Reversal Non-Formulary Medication 3 mg 11/27/24 09:00 Cariprazine [Vraylar] PO 12/27/24 08:59 DAILY [facility] Non-Formulary Medication 15 mg 11/26/24 09:00 Dexmethylphenidate PO 12/26/24 08:59 DAILY [facility] Non-Formulary Medication 1 mg 11/26/24 21:00 Eszopiclone PO 12/26/24 20:59 HS [facility] Ondansetron HCl 4 mg 11/26/24 12:47 Ondansetron Inj 4 Mg/2 Ml Vial IV PUSH Q4H PRN Nausea And Vomiting Oxycodone HCl 2.5 mg 11/26/24 12:47 Oxycodone Hcl (*Crx) 2.5 Mg Tab Ir PO Q4H PRN Pain Rated 4-6 Oxycodone HCl 5 mg 11/26/24 12:47 11/27/24 06:33 Oxycodone Hcl (*Crx) 5 Mg Tab Ir PO 5 mg Q4H PRN Administration Pain Rated 7-10 Pantoprazole Sodium 40 mg 11/27/24 09:00 Pantoprazole 40 Mg Tablet PO QAM [facility] Propranolol HCl 120 mg 11/27/24 09:00 Propranolol Hcl 60 Mg Capsule Cr PO QAM [facility] Quetiapine Fumarate 50 mg 11/26/24 21:00 11/26/24 20:54 Quetiapine Fumarate 25 Mg Tablet PO 50 mg HS PRACHI Administration Venlafaxine HCl 75 mg 11/27/24 09:00 Venlafaxine Hcl Xr 75 Mg Cap.Er.24h PO DAILY PR[facility]I Labs Labs: Laboratory Results - last 24 hr 11/27/24 05:34 WBC 12.9 H RBC 4.38 L Hgb 13.4 L Hct 40.7 L MCV 92.9 MCH 30.6 MCHC 32.9 RDW 13.2 Plt Count 194 MPV 9.2 Sodium 136 L Potassium 3.7 Chloride 100 Carbon Dioxide 27 Anion Gap 9 BUN 10 Creatinine 0.87 Estim Creat Clear Calc 131 Estimated GFR > 60 Glucose 121 H Calcium 8.7
[2024-11-27 08:48] VITALS: PULSE 99; RESP 16; O2SAT 94
[2024-11-27] MEDS: LITHIUM CARBONATE 300 MG CAPSULE 600 MG PO ×2 (08:48→16:12)
[2024-11-27] MEDS: ENOXAPARIN 40 MG/0.4 ML SYRINGE SUB-Q (08:48)
[2024-11-27] MEDS: PROPRANOLOL HCL 60 MG CAPSULE CR 120 MG PO (08:48)
[2024-11-27] MEDS: VENLAFAXINE HCL XR 75 MG CAP.ER.24H PO (08:50)
[2024-11-27] MEDS: PANTOPRAZOLE 40 MG TABLET PO (08:50)
[2024-11-27] MEDS: buPROPion HCL XL (24 HR) 150 MG TABCR 300 MG PO (08:50)
[2024-11-27] MEDS: IBUPROFEN IV 800 MG/200 ML 800 MG/200 ML BAG 400 MG IVPB (08:55)
[2024-11-27] MEDS: oxyCODONE HCL (*CRX) 2.5 MG TAB IR PO ×2 (14:12→20:18)
--- NOTE | 2024-11-27 14:14 | WPDANESPN ---
Anes - Prog Note Post-Op Date/Time: 11/27/24 14:14 Cardiovascular status: normal Respiratory status: normal Airway patency: baseline Mental status: baseline Post-Op hydration status: normal Vital Signs: Last Vital Signs Temp 36.8 C 11/27/24 06:01 Pulse 99 11/27/24 08:48 Resp 16 11/27/24 08:48 BP 127/85 11/27/24 06:01 Pulse Ox 94 11/27/24 08:48 O2 Del Method Room Air 11/27/24 08:48 O2 Flow Rate 2 11/26/24 12:43 Pain Score (VAS): Patient asleep, no nonverbal signs of pain present at this time. I/O: Intake & Output 11/26/24 11/27/24 11/27/24 23:59 07:59 15:59 Intake Total 240 850 920 Balance 240 850 920 Laboratory Tests 11/27/24 05:34 11/27/24 05:34 11/27/24 05:34 WBC 12.9 H RBC 4.38 L Hgb 13.4 L Hct 40.7 L MCV 92.9 MCH 30.6 MCHC 32.9 RDW 13.2 Plt Count 194 MPV 9.2 Sodium 136 L Potassium 3.7 Chloride 100 Carbon Dioxide 27 Anion Gap 9 BUN 10 Creatinine 0.87 Estim Creat Clear Calc 131 Estimated GFR > 60 Glucose 121 H Calcium 8.7 Post-procedural complaints: none Patient Feedback: Patient satisfied with anesthetic care.
[2024-11-27 14:32] VITALS: BP 107/79; PULSE 77; RESP 16; TEMP 36.7; O2SAT 93
[2024-11-27] MEDS: QUEtiapine FUMARATE 25 MG TABLET 50 MG PO (20:18)
[2024-11-27 21:14] VITALS: BP 123/76; PULSE 75; RESP 18; TEMP 36.6; O2SAT 96
[2024-11-28] MEDS: oxyCODONE HCL (*CRX) 2.5 MG TAB IR PO (01:06)
[2024-11-28 05:38] VITALS: BP 120/81; PULSE 87; RESP 16; TEMP 36.4; O2SAT 94
[2024-11-28 06:20] LABS: Hematocrit 40.8 % (42.0-52.0); Hemoglobin 13.2 g/dL (14.0-18.0); Mean Corpuscular HGB Conc 32.4 g/dl (32-36); Mean Corpuscular Hemoglobin 30.6 pg (26-34); Mean Corpuscular Volume 94.7 fl (80-100); Mean Platelet Volume 9.3 fl (7.4-10.4); Platelet Count Result 140 k/mm3 (150-375); Red Blood Count 4.31 M/mm3 (4.6-6.20); Red Cell Distribution Width 13.1 % (11.5-14.5); White Blood Count 13.3 K/mm3 (4.5-10.0)
[2024-11-28 06:33] LABS: Anion Gap 7 mmol/L (4-12); Blood Urea Nitrogen 7 mg/dL (9-20); Calcium 8.5 mg/dL (8.4-10.2); Carbon Dioxide 26 mmol/L (22-30); Chloride 104 mmol/L (98-107); Estimated CRCL calculation 147 ml/min; Estimated Glomerular Filt Rate > 60; Glucose 137 mg/dL (65-110); Sodium 137 mmol/L (137-145)
--- NOTE | 2024-11-28 06:48 | P.DS_ITS ---
DS: Admitting Diagnosis Discharge Date 11/28/2024 Admitting Diagnosis * Hiatal hernia with dysphagia and Faisal ulcers, regurgitation * GERD recalcitrant to twice a day proton pump inhibitors * Bipolar affective disorder * Fatty liver * Obesity with BMI 36 DS: Discharge Diagnosis Discharge Diagnosis (1) Hiatal hernia: Code(s): K44.9 - Diaphragmatic hernia without obstruction or gangrene Status: Acute (2) History of repair of hiatal hernia: Code(s): Z98.890 - Other specified postprocedural states; Z87.19 - Personal history of other diseases of the digestive system Status: Acute Assessment and Plan: Robotic laparoscopic repair 11/26/[address] Edward. (3) GERD (gastroesophageal reflux disease): Qualifiers: Esophagitis presence: without esophagitis Qualified Code(s): K21.9 - Gastro-esophageal reflux disease without esophagitis Code(s): K21.9 - Gastro-esophageal reflux disease without esophagitis Status: Acute (4) Hematemesis: Qualifiers: Nausea presence: with nausea Qualified Code(s): K92.0 - Hematemesis Code(s): K92.0 - Hematemesis Status: Acute (5) Bipolar disorder: Qualifiers: Active/Remission status: remission status unspecified Qualified Code(s): F31.9 - Bipolar disorder, unspecified Code(s): F31.9 - Bipolar disorder, unspecified Status: Chronic DS: Summary Hospital Course Hospital Course: Patient with fairly large hiatal hernia causing obstructive symptoms including dysphagia and occasional emesis. He also has recalcitrant reflux symptoms and upper GI bleeding with Faisal lesions on endoscopy. After discussion, he was taken to surgery on 11/26/[address] Edward. He underwent robotic laparoscopic repair of a type 3 paraesophageal hernia with a partial fundoplication and hiatal hernia repair. Patient was started on liquids after surgery. He tolerated these well and was advanced to full liquids. He was ambulating independently, comfortable on oral analgesics, and able to be discharged on postop day 2., 11/28/2024. Status at Discharge Functional status at discharge: independent ambulation Overall status at discharge: patient is progressing back to baseline Time Spent with Patient Time attestation: Total time spent providing and/or coordinating discharge services: Time spent: Less than 30 minutes DS: Data Data Completed and Pending Labs on day of discharge: Labs from last 24 hours 11/28/24 05:36 WBC 13.3 H RBC 4.31 L Hgb 13.2 L Hct 40.8 L MCV 94.7 MCH 30.6 MCHC 32.4 RDW 13.1 Plt Count 140 L MPV 9.3 Sodium 137 Potassium 4.0 Chloride 104 Carbon Dioxide 26 Anion Gap 7 BUN 7 L Creatinine 0.77 Estim Creat Clear Calc 147 Estimated GFR > 60 Glucose 137 H Calcium 8.5 Discharge Plan Discharge Attending physician on discharge: Wes Edward Discharging Clinician: Jefferson Dumont Anticipated Discharge Date/Time: 11/28/24 16:00 Patient Disposition: Home Activity: may shower, no straining and as tolerated Diet: other - see discharge instructions Wound Care Instructions: incision open to air Discharge Instructions: * Ambulate 3-4 x per day and as tolerated. * No lifting over 15-20lbs. * May bathe or shower. * Stairs are OK. * May drive a car in 3 days. * Stay on full liquid diet until see Dr. Edward * See Dr. Edward in 2 weeks * Call or go to the emergency room if experience severe abdominal or chest pain, protracted vomiting, inability to eat, temp over 101 degree, or other signifi cant change in condition. * Drink/eat slowly taking small bites. Try to wait between drinks or bites of food. Patient Instructions: Full Liquid Diet (DC) Patient Language: [place] Stand Alone Forms: General Discharge Instructions Follow-up/Referrals: Wes Edward, DO [Physician] - 2 Weeks (Call for appointment if you do not already have an appointment.) Discharge Medications: New oxycodone 5 mg/5 mL solution 5 mg PO Q4H PRN (Reason: pain) Qty: 100 0RF acetaminophen 500 mg/15 mL liquid 1,000 mg PO Q6H MDD 4000mg PRN (Reason: pain) Qty: 237 0RF Continued omeprazole 40 mg capsule,delayed release(DR/EC) 40 mg PO BID propranolol 120 mg capsule,extended release 24 hr 120 mg PO Q24H Patient Comments: Takes for Anxiety. quetiapine 50 mg tablet 50 mg PO HS Patient Comments: Says is taking 100mg bupropion HCl 300 mg tablet extended release 24 hr 300 mg PO DAILY Vraylar 3 mg capsule 3 mg PO DAILY Patient Comments: Says not currently taking but will probably take again. eszopiclone 1 mg tablet 1 mg PO HS venlafaxine 75 mg capsule,extended release 24hr 75 mg PO DAILY dexmethylphenidate 15 mg capsule,ER biphasic 50-50 15 mg PO DAILY lithium carbonate 600 mg capsule 600 mg PO BID Discontinued metoclopramide HCl [Reglan] 5 mg tablet 5 mg PO .before dinner Qty: 30 0RF Patient Comments: Currently not taking, ran out. Date of admission: 11/27/24 10:47 Primary Care Provider: Yasmin,Haris Admitting Provider: Wes Edward Attending physician on admission: Wes Edward Condition: Improved
[2024-11-28] MEDS: buPROPion HCL XL (24 HR) 150 MG TABCR 300 MG PO (08:58)
[2024-11-28] MEDS: PROPRANOLOL HCL 60 MG CAPSULE CR 120 MG PO (08:58)
[2024-11-28] MEDS: VENLAFAXINE HCL XR 75 MG CAP.ER.24H PO (08:58)
[2024-11-28] MEDS: LITHIUM CARBONATE 300 MG CAPSULE 600 MG PO (08:58)
[2024-11-28] MEDS: PANTOPRAZOLE 40 MG TABLET PO (08:59)
[2024-11-28] MEDS: ENOXAPARIN 40 MG/0.4 ML SYRINGE SUB-Q (08:59)
[2024-11-28 14:00] VITALS: BP 113/84; PULSE 71; RESP 16; TEMP 36.4; O2SAT 96
== END 2024-11-28 15:35 | disposition home or self-care (01) ==
LOC: ANHSURGERY 11:05 → ANH3MEDSUR 11:05
PROVIDERS: Admitting Provider Surgery; PCP Student in an Organized Health Care Education/Training Program; Visit Provider Surgery
PROC: 0DV44ZZ Restriction of Esophagogastric Junction, Percutaneous Endoscopic Approach (ICD-10-PCS; CPT 43280; principal; 2024-11-26 09:30)
DX: K44.9 Diaphragmatic hernia without obstruction or gangrene (principal); K21.9 Gastro-esophageal reflux disease without esophagitis; R13.10 Dysphagia, unspecified; K25.9 Gastric ulcer, unspecified as acute or chronic, without hemorrhage or perforation; K76.0 Fatty (change of) liver, not elsewhere classified; E66.9 Obesity, unspecified; Z68.36 Body mass index [BMI] 36.0-36.9, adult; F10.11 Alcohol abuse, in remission; F31.9 Bipolar disorder, unspecified; Z79.899 Other long term (current) drug therapy
CPT/HCPCS: 43281; S2900; 36415; 80048; 85027; A9270; G0378; J0690; J1100; J1650; J1741; J1885; J2250; J2270; J2405; J2704; J3010; J7120